=== PATIENT | female | born 1945 | race Caucasian/White ===

== ENCOUNTER → 2016-08-22 | Day surgery (SDC) | payer OTHER, MEDICARE ==
[2016-08-14 15:00] VITALS: BMI 37.0
[~2016-08-22] VITALS: Ht 160 cm; Wt 95.5 kg
[~2016-08-22] MED LIST: ACET500T57 PO; ALBU18002 INH; ALBUTEROL 0.083% NEBU SOLN 3 ML VIAL INH SCH; ALPR-411 PO; AMOX1TAB43 PO; AMOX875T PO; ASPCH81X PO; ASPI81TA25 PO; CHOL100010 PO; CLMTP5 TD; ESTR0.02 TD; ESTRADIOL EXT; FAMO20TA11 PO; FLUO10CA48 PO; FLUT1INH7 INH; FLUT220A INH; GLC/500 PO; GLC500 PO; LCTX PO; LEVA45AE INH; LEVO-371 PO; LIDOCAINE HCL 2% 2 ML VIAL (20MG/ML) ONE; LOSA50TA6 PO; MONT1TAB3 PO; MULT-506 PO; OXYC-57 PO; PROPOFOL IV EMULSION 10 MG/ML 20 ML VIAL IV ONE; XPNINS1255 NEB
[2016-08-22 08:45] VITALS: Ht 160 cm; Wt 95.5 kg
[2016-08-22 08:48] VITALS: BP 174/79; TEMP 37.2; O2SAT 93
[2016-08-22 09:08] VITALS: PULSE 75; O2SAT 93
--- NOTE | 2016-08-22 12:09 | Anesthesiology Progress Note ---
Anesthesia Progress Note Date of Service Aug 22, 2016. Progress Notes The patient is a 71 y/o female with a h/o COPD, MASSIMO on CPAP ( wears 3L NC 02 at night), HTN, GERD, DM and obesity who was schedule to have an EGD with Dr. Rossi for chronic GERD and abdominal pain. The patient was noted to be wheezing and had an oxygen saturation of 92% on RA on admission. The patient stated her baseline room air saturation is 94-95% on RA. She was visibly short of breath while walking. She stated that after changing her cat' s litter this morning she felt more tight in the chest and did use her Albuterol this morning. On exam she was wheezing throughout her lung pagan. She also appeared to have some upper airway congestion. She initially denied feeling congested, but then admitted that she did feel more congested this morning than usual. She was given an albuterol nebulizer as she does not tolerated Duonebs. She continued to have significant wheezing throughout after the nebulizer and her oxygen saturation remained between 92-93% on RA. The patient's wheezing has been worse recently and she saw her the SURVEY CHIEF at her pulmonologists office, Leona Castelan last week. I discussed the patient with Dr. Rossi who agreed that the patient's procedure should be cancelled until her respiratory status was improved as the procedure was not urgent or emergent. I recommended the patient go to the ED for further evaluation and treatment, but she refused. I called Leona Castelan and spoke to her. She stated that she has been trying to adjust the patient's nebulizer to optimizer her. I described the patient's exam findings and told her the patient's oxygen saturation and that she has been short of breath. Leona also recommended that the patient go to the ED as she had no opening to see her in the office today. She stated that if the patient refuses to go to the ED she should call her office as soon as possible for an appointment and possible further recommendations. I informed the patient that Leona, Dr. Rossi and myself all recommend she go to the ED for further evaluation and treatment, but she refused stated that this happens to her frequently and she did not feel it was necessary. I informed her of the risks of refusing to go to the ED and getting evaluation and treatment including the risk of respiratory failure, cardiac arrest, stroke and . The patient stated that she understood and she signed out against medical advice (AMA). I again reminded her that she needs to call Leona as soon as possible to see if she will have any new recommendations for her and to schedule an appointment with pulmonology. She stated that she would do that. I again encouraged her to go to the ED if she felt short of breath, chest pain, lightheaded or dizziness or with any other concerns.
== END | disposition home or self-care (01) ==
LOC: C.GI 08:15
PROVIDERS: ATTEND Internal Medicine Gastroenterology
DX: K21.9 Gastro-esophageal reflux disease without esophagitis (principal); R13.10 Dysphagia, unspecified; J44.9 Chronic obstructive pulmonary disease, unspecified; G47.33 Obstructive sleep apnea (adult) (pediatric); I10 Essential (primary) hypertension; E66.9 Obesity, unspecified; E11.9 Type 2 diabetes mellitus without complications; Z99.89 Dependence on other enabling machines and devices

== ENCOUNTER → 2016-09-26 | Outpatient (CLI) | payer OTHER, MEDICARE ==
[~2016-09-26] MED LIST changes: -ALBUTEROL 0.083% NEBU SOLN 3 ML VIAL INH SCH; -LEVO-371 PO; +LEVO5TAB2 PO; -LIDOCAINE HCL 2% 2 ML VIAL (20MG/ML) ONE; -PROPOFOL IV EMULSION 10 MG/ML 20 ML VIAL IV ONE
== END | disposition home or self-care (01) ==
LOC: C.LABSPEC 10:30
PROVIDERS: ATTEND Physician Assistant
DX: N89.8 Other specified noninflammatory disorders of vagina (principal)

== ENCOUNTER 2017-01-23 13:06 | Observation (INO) | payer OTHER, MEDICARE ==
[~2017-01-23] VITALS: Ht 157.5 cm; Wt 98.7 kg
[~2017-01-23 13:06] MED LIST changes: -ACET500T57 PO; -AMOX1TAB43 PO; -AMOX875T PO; -ASPI81TA25 PO; -CLMTP5 TD; -ESTR0.02 TD; -FLUT1INH7 INH; -GLC/500 PO; -LCTX PO; -LEVO5TAB2 PO; -OXYC-57 PO; -XPNINS1255 NEB
[2017-01-23] MEDS ORDERED: OXYMETAZOLINE HCL 0.05% NA SPR 15 ML BTL ONE (13:15)
[2017-01-23] MEDS ORDERED: SILVER NITR/POTASSIUM NITRATE 10 APPLICATOR PACK EXT STA (13:34)
[2017-01-23] MEDS ORDERED: LIDOCAINE HCL 2% JELLY 30 ML TUBE EXT ONE (13:54)
[2017-01-23] MEDS ORDERED: CLMTP5 TD (14:15)
[2017-01-23] MEDS ORDERED: GLC/500 PO (14:15)
[2017-01-23] MEDS ORDERED: ALBUTEROL 0.083% NEBU SOLN 3 ML VIAL INH STA (14:16)
[2017-01-23] MEDS ORDERED: AMOX875T PO (14:40)
[2017-01-23] MEDS ORDERED: AMOXICILLIN/CLAVULANATE TAB 875 MG TAB PO ONE (14:45)
[2017-01-23] MEDS ORDERED: NURSING VERBAL MED ORDER ONE (15:45)
[2017-01-23] MEDS ORDERED: SODIUM CHLORIDE 0.9% 500ML 500 ML IV STA (15:47)
--- NOTE | 2017-01-23 16:42 | EMERGENCY ROOM VISIT NOTE ---
History Report prepared by Marshaibkasia: Alyx Quezada Under the Supervision of: Dr. Marc Loaiza D.O. First contact with patient: 13:11 Chief Complaint: NOSE BLEED (MAJOR) Stated Complaint: NOSE BLEED History of Present Illness The patient is a 71 year old female who presents to the Emergency Room with complaints of persistent epistaxis that started 1 hour ago. The patient states that there is blood coming out of her right nares and it is also dripping down her posterior oropharynx. The patient put Afrin in her nares after it started bleeding without any relief of her symptoms. The patient denies headaches, chest pain, nausea, and vomiting. The patient states that she coughed up some mucous and blood clots this morning after waking up. She states that she was experiencing postnasal drip and was clearing her throat when she coughed up the blood. She states that the blood was dripping down the back of her throat this morning but it seemed to resolve on its own. She adds that she was coughing and sneezing a lot yesterday. The patient states that she has a history of multiple sinus surgeries.She states that she has COPD and experiences shortness of breath at baseline but it has not been any worse recently. Source of History: patient Onset: 1 hour ago Position: nose (right nares) Quality: other (epistaxis) Timing: other (persistent) Associated Symptoms: No headache, No chest pain, No SOB, No abdominal pain Note: blood down posterior oropharynx Review of Systems See HPI for pertinent positives & negatives. A total of 10 systems reviewed and were otherwise negative. Past Medical & Surgical Medical Problems: (1) Diabetes (2) Hyperlipidemia (3) Hypertension Family History Diabetes mellitus GI malignancy Social History Smoking Status: Former Smoker Marital Status: Occupation Status: retired Current/Historical Medications Scheduled Alprazolam (Xanax), 0.5 MG PO HS Amoxicillin & Pot Clavulanate (Augmentin 875-125 mg), 875 MG PO BID Aspirin (Aspirin Chewable), 81 MG PO QAM Cholecalciferol (Vitamin D), 1 TAB PO QAM Estradiol (Estradiol), 0.025 MG TD WK Famotidine (Pepcid), 20 MG PO BID Fluoxetine (Prozac), 10 MG PO QAM Losartan Potassium (Cozaar), 100 MG PO QAM Metformin Hcl (Glucophage), 500 MG PO DAILY Multivitamin (Multivitamin), 1 TAB PO QAM [Estradiol], 0.025 MG EXT WK Scheduled PRN Albuterol Sulfate (Proair Respiclick), 2 PUFF INH QID PRN for Shortness of Breath Levalbuterol Tartrate (Levalbuterol Tartrate Hfa), 1 DOSE INH QID PRN for Shortness of Breath Allergies Coded Allergies: CAMMIE Inhibitors (Verified Allergy, Unknown, COUGH, 08/14/16) Cefaclor (Verified Allergy, Unknown, HIVES, 08/14/16) Erythromycin (Verified Allergy, Unknown, HIVES, 08/14/16) Hyoscyamine (Verified Allergy, Unknown, HALLUCINATIONS, 08/14/16) Saccharin (Verified Allergy, Unknown, WHEEZING, 08/14/16) Sorbitol (Verified Allergy, Unknown, STOMACH PAIN, 08/14/16) Sulfa Drugs (Verified Allergy, Unknown, HIVES, 08/14/16) Sulfites (Verified Allergy, Unknown, WHEEZING, 08/14/16) Etodolac (Verified Adverse Reaction, Unknown, STOMACH PAIN, 08/22/16) Levofloxacin (Verified Adverse Reaction, Unknown, BRAIN FOG AND SPACEY, ) Physical Exam Vital Signs Date Time Temp Pulse Resp B/P (MAP) Pulse Ox O2 Delivery O2 Flow Rate FiO2 01/23/17 14:22 88 20 156/110 98 Room Air 01/23/17 13:13 36.4 106 18 217/147 94 Room Air Physical Exam GENERAL: alert, sitting up in bed, disheveled, dried blood on clothes, well appearing, well nourished, no distress, non-toxic EYE EXAM: normal conjunctiva, PERRL and EOM's intact NOSE: Clamp removed, small scar present just medial to the inferior nasal turbinate on right nasal septum. OROPHARYNX: No blood in posterior oropharynx, no exudate, no erythema, lips, buccal mucosa, and tongue normal and mucous membranes are moist NECK: supple, no nuchal rigidity, no adenopathy, non-tender LUNGS: Wheezing bilateral. Normal chest wall mechanics HEART: no murmurs, S1 normal and S2 normal ABDOMEN: abdomen soft, non-tender, normo-active bowel sounds, no masses, no rebound or guarding. UPPER EXTREMITIES: upper extremities are grossly normal. LOWER EXTREMITIES: No pitting edema. NEURO EXAM: Normal sensorium, cranial nerves II-XII grossly intact, normal speech, no gross weakness of arms, no gross weakness of legs. Medical Decision & Procedures Medications Administered Medications (Trade) Dose Ordered Sig/Nelida Route Start Time Stop Time Status Last Admin Dose Admin Albuterol Sulfate (Ventolin 0.083% 2.5MG/3ML Neb) 2.5 mg NOW STAT INH 01/23/17 14:16 01/23/17 14:17 DC 01/23/17 14:21 2.5 MG Amoxicillin/ Clavulanate Potassium (Augmentin Tab) 875 mg ONE ONCE PO 01/23/17 14:45 01/23/17 14:46 DC 01/23/17 14:57 875 MG Miscellaneous Information (Nursing Verbal Med Order) 1 ea ONE ONCE N/A 01/23/17 15:45 01/23/17 15:46 DC 01/23/17 15:45 1 EA Sodium Chloride 500 ml @ 999 mls/hr Q31M STAT IV 01/23/17 15:47 01/23/17 16:17 DC 01/23/17 15:47 999 MLS/HR Procedure Anterior Nasal Packing Indication: Epistaxis. Verbal consent obtained. Risks and benefits were explained with the usual customary discussion. A time out was taken. Clots were removed with suction. The right naris was prepped with Afrin and lidocaine. A 3.5-cm nasal balloon was placed and was unsuccessful. A 5-cm nasal balloon was then placed in a standard fashion. The patient tolerated this well. Hemostasis was achieved. No complications. ED Course ED COURSE: Vital signs were reviewed and showed hypertension. The patients medical record was reviewed The above diagnostic studies were performed and reviewed. ED treatments and interventions as stated above. 1314: The patient was evaluated in room B11. A complete history and physical examination was performed. 1315: Ordered Oxymetazoline HCl 2 sprays INH 1334: Ordered Silver Nitrate/Potassium Nitrate 1 pkt EXT 1344: The nurse told me that the patient's nose is bleeding again. 1350: I reassessed the patient and packed her nose. Please refer to the procedure note above for further details. 1354: Ordered Lidocaine HCl 30 ml EXT 1416: Ordered Albuterol Sulfate 2.5 mg INH 1430: Upon reevaluation, the patient is doing well and the bleeding has stopped. I discussed my findings with the patient and she understands and agrees with the treatment plan. Based on the patients age, coexisting illnesses, exam and lab findings the decision to treat as an outpatient was made. The patient remained stable while under my care. The patient appeared well at the time of discharge. Just prior to discharge the patient started bleeding again. Patient was repacked twice and ENT present at bedside at 4:10 PM. Patient was signed out to Dr. Prado had 4:35 PM. 1445: Ordered Augmentin Tab 875 mg PO 1506: As the patient was being discharged, her nose started to bleed again. 1518: I reassessed the patient. She is still experiencing a small amount of blood leaking down the back of her throat. 1524: I reviewed the patient's case with Dr. Tovar - ENT. He will evaluate the patient for further management. 1528: I reassessed the patient. The rhino rocket continued to protrude. There was no bleeding posteriorly and a small amount of oozing anteriorly. She is comfortable currently and does not prefer to have the rhino rocket adjusted again. Medical Decision Differential diagnoses includes but is not limited to anterior epistaxis, coagulopathy, traumatic injury, fracture, septal hematoma, posterior epistaxis. Patient is a 71-year-old female who presents the ER for epistaxis. Initially upon presentation she is found be hypertensive with systolic pressures in the 200s. Systolic pressures treated down to 150s without intervention. Upon initial evaluation nasal clamp is in place and she had no bleeding. She had a small scab on her right septum. History would be consistent with a posterior bleed as the bleeding initially bleeding started going down the back of her throat and both sides of the nose but is mainly focused on the right. Just prior to discharge she started bleeding again. She was packed with small Rhino Rocket. Bleeding stopped and the cycle repeated and she was repacked with a larger Rhino Rocket although I was not able to completely advanced this as I met resistance in the posterior nose. Consulted ENT. Pressures remained 160s systolic. IV was established. Patient was given a small amount of fluids. ENT was at bedside. Patient has remained hemodynamically stable. She is given a small dose of hydralazine per ENTs request. They were able to stop the bleeding. Patient will be observed for an hour. Bleeding does not recur she can be discharged. If it does recur ENT will be called and patient will be admitted for observation overnight. Patient was signed out to Dr. Prado for observation times one hour. Medication Reconcilliation Current Medication List: was personally reviewed by me Blood Pressure Screening Patient's blood pressure: Elevated blood pressure Blood pressure disposition: Elevated BP felt to be situational Consults Time Called: 1520 Consulting Physician: Dr. Tovar - ENT Returned Call: 1524 Impression Primary Impression: Epistaxis Additional Impression: Hypertension Scribe Attestation The scribe's documentation has been prepared under my direction and personally reviewed by me in its entirety. I confirm that the note above accurately reflects all work, treatment, procedures, and medical decision making performed by me. Departure Information Dispostion Home / Self-Care Prescriptions Amoxicillin & Pot Clavulanate (Augmentin 875-125 mg) 1 Tab Tab 875 MG PO BID for 4 Days, TAB Prov: Marc Loaiza, 01/23/17 Referrals Andrae Hays MD (PCP) Forms HOME CARE DOCUMENTATION FORM, IMPORTANT VISIT INFORMATION, WORK / SCHOOL INSTRUCTIONS Patient Instructions ED Nasal Packing Anterior Removable, ED Nosebleed, My [facility] marshallindex Additional Instructions Please follow up with your primary care doctor or if you are a student, [facility] with in the next 24 hours. Any worsening of your symptoms, please return to the ED immediately. This includes any fevers greater than 100.4, blood running down the back your throat, bleeding around the packing , or any other concerning signs or symptoms from your standpoint. Please take antibiotic as prescribed. You were found to have a blood pressure greater than 120 systolic over 90 diastolic. Due to the new Medicare guidelines , we are now recommending that you follow up with your primary care doctor in regards to this elevated blood pressure. Please have packing removed by either your primary care doctor or ENT within 2- 3 days. Problem Qualifiers Additional Impression: Hypertension Hypertension type: unspecified Qualified Codes: I10 - Essential (primary) hypertension
[2017-01-23] MEDS ORDERED: HydrALAZINE HCL 20 MG/ML VIAL IV. STA (16:44)
[2017-01-23] MEDS ORDERED: LABETALOL HCL IV 5 MG/ML 20ML IV ONE (16:45)
--- NOTE | 2017-01-23 17:10 | EMERGENCY ROOM VISIT NOTE ---
ED Visit Note First contact with patient: 16:49 Received patient in signout from Dr. Loaiza. History and physical verified by me. Patient was evaluated by Dr. Freire in the emergency department. We are going to observe the patient until 1740 at which time if the patient is no longer bleeding she can be sent home. Patient was in agreement with the treatment plan. Upon checking on the patient at 1720 she began bleeding again. Dr. Tovar came back down to evaluate the patient and asked that she be admitted to the hospitalist service. I did discuss the case with the hospitalist service who agreed to admit the patient. Problem List Medical Problems: (1) Anxiety Status: Chronic (2) Asthma, allergic Status: Chronic (3) Carotid stenosis Status: Chronic (4) Chronic rhinitis Status: Chronic (5) Chronic sinusitis Status: Chronic (6) COPD, moderate Status: Chronic (7) Depression Status: Chronic (8) DM type 2 (diabetes mellitus, type 2) Status: Chronic (9) GERD (gastroesophageal reflux disease) Status: Chronic (10) Hyperlipidemia Status: Chronic (11) Hypertension Status: Chronic (12) IBS (irritable bowel syndrome) Status: Chronic (13) MGUS (monoclonal gammopathy of unknown significance) Status: Chronic (14) Nocturnal hypoxia Status: Chronic (15) Obstructive sleep apnea on CPAP Status: Chronic (16) Osteoarthritis Status: Chronic Surgical Problems: (1) H/O sinus surgery Permanent Comment: x2 Status: Chronic (2) History of cataract surgery Status: Chronic (3) History of hysterectomy Status: Chronic (4) S/P carotid endarterectomy Permanent Comment: left, 09/2015 Status: Chronic (5) S/P section Status: Chronic (6) S/P cholecystectomy Status: Chronic (7) S/P tonsillectomy and adenoidectomy Status: Chronic (8) S/P total knee arthroplasty Permanent Comment: left Status: Chronic Current/Historical Medications Scheduled Aspirin (Aspir-Low), 1 TAB PO DAILY Cholecalciferol (Vitamin D), 1 TAB PO QAM Estradiol (Estradiol Transdermal System), 1 PATCH TD WK Famotidine (Pepcid), 20 MG PO BID Fluoxetine (Prozac), 10 MG PO QAM Fluticasone Furoate-Vilanterol (Breo Ellipta 200-25 Mcg/INH), 1 PUFF INH DAILY Levocetirizine Dihydrochloride (Xyzal), 1 TAB PO DAILY Losartan Potassium (Cozaar), 100 MG PO QAM Metformin Hcl (Glucophage), 500 MG PO DAILY Multivitamin (Multivitamin), 1 TAB PO QAM Scheduled PRN Acetaminophen (Acetaminophen), 1,000 MG PO Q6 PRN for Pain or Fever Albuterol Sulfate (Proair Respiclick), 2 PUFF INH QID PRN for Shortness of Breath Alprazolam (Xanax), 0.5 MG PO HS PRN for sleep or anxiety Levalbuterol (Levalbuterol), 2 ML NEB Q4H PRN for SOB/Wheezing Allergies Coded Allergies: CAMMIE Inhibitors (Verified Allergy, Unknown, COUGH, 08/14/16) Cefaclor (Verified Allergy, Unknown, HIVES, 08/14/16) Erythromycin (Verified Allergy, Unknown, HIVES, 08/14/16) Hyoscyamine (Verified Allergy, Unknown, HALLUCINATIONS, 08/14/16) Saccharin (Verified Allergy, Unknown, WHEEZING, 08/14/16) Sorbitol (Verified Allergy, Unknown, STOMACH PAIN, 08/14/16) Sulfa Drugs (Verified Allergy, Unknown, HIVES, 08/14/16) Sulfites (Verified Allergy, Unknown, WHEEZING, 08/14/16) Etodolac (Verified Adverse Reaction, Unknown, STOMACH PAIN, 08/22/16) Levofloxacin (Verified Adverse Reaction, Unknown, BRAIN FOG AND SPACEY, ) Vital Signs Date Time Temp Pulse Resp B/P (MAP) Pulse Ox O2 Delivery O2 Flow Rate FiO2 01/23/17 18:49 85 18 181/132 94 Room Air 01/23/17 17:14 89 18 165/102 93 Room Air 01/23/17 16:53 81 20 186/109 94 Room Air 01/23/17 14:22 88 20 156/110 98 Room Air 01/23/17 13:13 36.4 106 18 217/147 94 Room Air Laboratory Results 01/23/17 17:45 Red Blood Count 4.93, Mean Corpuscular Volume 87.8, Mean Corpuscular Hemoglobin 27.6, Mean Corpuscular Hemoglobin Concent 31.4, Mean Platelet Volume 9.3, Neutrophils (%) (Auto) 79.4, Lymphocytes (%) (Auto) 13.8, Monocytes (%) (Auto) 5.0, Eosinophils (%) (Auto) 1.1, Basophils (%) (Auto) 0.3, Neutrophils # (Auto) 11.33, Lymphocytes # (Auto) 1.97, Monocytes # (Auto) 0.71, Eosinophils # (Auto) 0.16, Basophils # (Auto) 0.04 01/23/17 17:45 Test 01/23/17 17:45 White Blood Count 14.26 K/uL (4.8-10.8) Red Blood Count 4.93 M/uL (4.2-5.4) Hemoglobin 13.6 g/dL (12.0-16.0) Hematocrit 43.3 % (37-47) Mean Corpuscular Volume 87.8 fL (80-100) Mean Corpuscular Hemoglobin 27.6 pg (25-34) Mean Corpuscular Hemoglobin Concent 31.4 g/dl (32-36) Platelet Count 377 K/uL (130-400) Mean Platelet Volume 9.3 fL (7.4-10.4) Neutrophils (%) (Auto) 79.4 % Lymphocytes (%) (Auto) 13.8 % Monocytes (%) (Auto) 5.0 % Eosinophils (%) (Auto) 1.1 % Basophils (%) (Auto) 0.3 % Neutrophils # (Auto) 11.33 K/uL (1.4-6.5) Lymphocytes # (Auto) 1.97 K/uL (1.2-3.4) Monocytes # (Auto) 0.71 K/uL (0.11-0.59) Eosinophils # (Auto) 0.16 K/uL (0-0.5) Basophils # (Auto) 0.04 K/uL (0-0.2) RDW Standard Deviation 41.5 fL (36.4-46.3) RDW Coefficient of Variation 12.9 % (11.5-14.5) Immature Granulocyte % (Auto) 0.4 % Immature Granulocyte # (Auto) 0.05 K/uL (0.00-0.02) Prothrombin Time 10.6 SECONDS (9.0-12.0) Prothromb Time International Ratio 1.0 (0.9-1.1) Activated Partial Thromboplast Time 20.1 SECONDS (21.0-31.0) Partial Thromboplastin Ratio 0.8 Anion Gap 10.0 mmol/L (3-11) Est Creatinine Clear Calc Drug Dose 83.1 ml/min Estimated GFR () 101.3 Estimated GFR (Non- 87.4 BUN/Creatinine Ratio 22.8 (10-20) Calcium Level 9.4 mg/dl (8.5-10.1) Total Bilirubin 0.6 mg/dl (0.2-1) Direct Bilirubin 0.1 mg/dl (0-0.2) Aspartate Amino Transf (AST/SGOT) 13 U/L (15-37) Alanine Aminotransferase (ALT/SGPT) 24 U/L (12-78) Alkaline Phosphatase 125 U/L (45-117) Troponin I < 0.015 ng/ml (0-0.045) Total Protein 8.0 gm/dl (6.4-8.2) Albumin 4.0 gm/dl (3.4-5.0) Lipase 142 U/L (73-393) Medications Administered Medications (Trade) Dose Ordered Sig/Nelida Route Start Time Stop Time Status Last Admin Dose Admin Albuterol Sulfate (Ventolin 0.083% 2.5MG/3ML Neb) 2.5 mg NOW STAT INH 01/23/17 14:16 01/23/17 14:17 DC 01/23/17 14:21 2.5 MG Amoxicillin/ Clavulanate Potassium (Augmentin Tab) 875 mg ONE ONCE PO 01/23/17 14:45 01/23/17 14:46 DC 01/23/17 14:57 875 MG Miscellaneous Information (Nursing Verbal Med Order) 1 ea ONE ONCE N/A 01/23/17 15:45 01/23/17 15:46 DC 01/23/17 15:45 1 EA Sodium Chloride 500 ml @ 999 mls/hr Q31M STAT IV 01/23/17 15:47 01/23/17 16:17 DC 01/23/17 15:47 999 MLS/HR Hydralazine HCl (HydrALAZINE INJ) 10 mg NOW STAT IV. 01/23/17 16:44 01/23/17 16:45 DC 01/23/17 16:55 10 MG Departure Information Impression Primary Impression: Epistaxis Additional Impression: Hypertension Dispostion Home / Self-Care Condition GOOD Referrals Andrae Hays MD (PCP) Forms WORK / SCHOOL INSTRUCTIONS, HOME CARE DOCUMENTATION FORM, IMPORTANT VISIT INFORMATION Patient Instructions My [facility], ED Nosebleed, ED Nasal Packing Anterior Removable Additional Instructions Please follow up with your primary care doctor or if you are a student, [facility] with in the next 24 hours. Any worsening of your symptoms, please return to the ED immediately. This includes any fevers greater than 100.4, blood running down the back your throat, bleeding around the packing , or any other concerning signs or symptoms from your standpoint. Please take antibiotic as prescribed. You were found to have a blood pressure greater than 120 systolic over 90 diastolic. Due to the new Medicare guidelines , we are now recommending that you follow up with your primary care doctor in regards to this elevated blood pressure. Please call Dr. Tovar at [phone] from ENT to schedule appointment for next week. Problem Qualifiers Additional Impression: Hypertension Hypertension type: unspecified Qualified Codes: I10 - Essential (primary) hypertension
[2017-01-23 17:51] LABS: BASO % 0.3 %; BASO ABS # 0.04 K/uL (0-0.2); COMPLETE YES; EOS % 1.1 %; HEMATOCRIT 43.3 % (37-47); IG% 0.4 %; LYMPH % 13.8 %; LYMPH ABS # 1.97 K/uL (1.2-3.4); MEAN CELL VOLUME 87.8 fL (80-100); MEAN CORPUSCULAR HEMOGLOBIN 27.6 pg (25-34); MEAN CORPUSCULAR HGB CONC 31.4 g/dl (32-36); MEAN PLATELET VOLUME 9.3 fL (7.4-10.4); NEUT % 79.4 %; PLATELET COUNT 377 K/uL (130-400); RED BLOOD COUNT 4.93 M/uL (4.2-5.4); WHITE BLOOD COUNT 14.26 K/uL (4.8-10.8)
[2017-01-23 18:04] LABS: PARTIAL THROMBOPLASTIN RATIO 0.8; PROTHROMBIN TIME (PATIENT) 10.6 SECONDS (9.0-12.0)
[2017-01-23 18:15] LABS: ALT/SGPT 24 U/L (12-78); BLOOD UREA NITROGEN 16 mg/dl (7-18); BUN/CREATININE RATIO 22.8 (10-20); CALCIUM 9.4 mg/dl (8.5-10.1); CARBON DIOXIDE 24 mmol/L (21-32); CHLORIDE 107 mmol/L (98-107); CREATININE 0.68 mg/dl (0.60-1.20); GLUCOSE 108 mg/dl (70-99); SODIUM 141 mmol/L (136-145)
[2017-01-23 18:18] LABS: ALKALINE PHOSPHATASE 125 U/L (45-117); AST/SGOT 13 U/L (15-37)
[2017-01-23] MEDS ORDERED: XPNINS1255 NEB (19:47)
[2017-01-23] MEDS ORDERED: FLUT1INH7 INH (19:47)
[2017-01-23] MEDS ORDERED: ASPI81TA25 PO (19:47)
[2017-01-23] MEDS ORDERED: ACET500T57 PO (19:47)
[2017-01-23] MEDS ORDERED: ESTR0.02 TD (19:52)
[2017-01-23] MEDS ORDERED: DEXTROSE 50% 50 ML SYR IV PRN (20:00)
[2017-01-23] MEDS ORDERED: GLUCOSE 40% GEL 15 GM TUBE PO PRN (20:00)
[2017-01-23] MEDS ORDERED: ALBUTEROL HFA 8 GM INHALER INH PRN (20:00)
[2017-01-23] MEDS: ALBUT/IPRATROP 3MG/0.5MG NEB 3 ML VIAL INH SCH ×2 (20:00→20:10)
[2017-01-23] MEDS ORDERED: GLUCAGON FOR INJ 1 MG VIAL SQ PRN (20:00)
[2017-01-23] MEDS ORDERED: ESTRADIOL TD SCH (20:00)
[2017-01-23] MEDS ORDERED: ALPRAZOLAM 0.5 MG TAB PO PRN (20:00)
[2017-01-23] MEDS ORDERED: GLUCOSE 10 TABS/TUBE PO PRN (20:00)
[2017-01-23 20:10] VITALS: PULSE 84; O2SAT 90
[2017-01-23] MEDS ORDERED: LEVO-371 PO (20:26)
[2017-01-23 20:44] VITALS: BP 170/114; PULSE 86; TEMP 36.7; O2SAT 93; Ht 157.5 cm; Wt 98.7 kg
[2017-01-23] MEDS: INSULIN ASPART 100 UNITS/ML 3 ML PEN SC SCH (20:49)
--- NOTE | 2017-01-23 20:49 | History and Physical ---
History & Physical Date & Time of Service: Jan 23, 2017 at 20:04 Chief Complaint: Nose Bleed Primary Care Physician: Andrae Hays MD History of Present Illness Source: patient, clinic records This is a 71 y/o female with PMH of hypertension, carotid stenosis s/p L carotid endarterectomy in 09/2015, asthma, COPD, nocturnal hypoxemia, MASSIMO on CPAP , DM 2, and other problems listed below who presented to the ED with epistaxis. Patient reports 1 week hx of increased coughing with thicker darker yellow sputum from baseline. She had increased wheezing/ SOB for a few days and was using her neb treatment QID. She attributes this to worsening asthma triggered by hot/humid weather. Also has environmental allergies. She was sneezing/ coughing a lot yesterday, then today around 9 am coughed up postnasal drip and noticed bright red blood. Then developed gushing of blood from the right nostril. She was unable to stop the bleeding at home so called 911 and was brought to ER. In the ER her nose was packed multiple times but she continued to have recurrent bleeding. She was seen by ENT Dr. Tovar and the bleeding was stopped. Patient's BP was elevated to 210s/140s on arrival. She was treated with hydralazine 10 mg IV. Latest BP was 180s/100s. In clinic her BP's run 120s- 150s systolic. Pt is compliant with Losartan 100 mg daily. She admits to feeling anxious in the ER and she is in significant pain from the packing. Earlier today had central chest tightness attributed to anxiety. Not feeling CP or SOB currently. A neb treatment was given in the ER. Had 1 loose BM after Augmentin given in ER. She denies fever, chills, BANGURA, abdominal pain, vomiting, dysuria, edema, calf pain. Takes baby ASA for hx carotid endarterectomy. No hx CAD or stroke. Not on blood thinner or NSAIDs. Past Medical/Surgical History Medical Problems: (1) Anxiety Status: Chronic (2) Asthma, allergic Status: Chronic (3) Carotid stenosis Status: Chronic (4) Chronic rhinitis Status: Chronic (5) Chronic sinusitis Status: Chronic (6) COPD, moderate Status: Chronic (7) Depression Status: Chronic (8) DM type 2 (diabetes mellitus, type 2) Status: Chronic (9) GERD (gastroesophageal reflux disease) Status: Chronic (10) Hyperlipidemia Status: Chronic (11) Hypertension Status: Chronic (12) IBS (irritable bowel syndrome) Status: Chronic (13) MGUS (monoclonal gammopathy of unknown significance) Status: Chronic (14) Nocturnal hypoxia Status: Chronic (15) Obstructive sleep apnea on CPAP Status: Chronic (16) Osteoarthritis Status: Chronic Surgical Problems: (1) H/O sinus surgery Permanent Comment: x2 Status: Chronic (2) History of cataract surgery Status: Chronic (3) History of hysterectomy Status: Chronic (4) S/P carotid endarterectomy Permanent Comment: left, 09/2015 Status: Chronic (5) S/P section Status: Chronic (6) S/P cholecystectomy Status: Chronic (7) S/P tonsillectomy and adenoidectomy Status: Chronic (8) S/P total knee arthroplasty Permanent Comment: left Status: Chronic Family History Diabetes mellitus GI malignancy Social History Smoking Status: Former Smoker Alcohol Use: none Drug Use: none Marital Status: Housing status: lives alone Occupational Status: retired Immunizations History of Influenza Vaccine: Yes History of Tetanus Vaccine?: Yes History of Pneumococcal: Yes History of Hepatitis B Vaccine: Yes Multi-Drug Resistant Organisms History of MDRO: No Allergies Coded Allergies: CAMMIE Inhibitors (Verified Allergy, Unknown, COUGH, 08/14/16) Cefaclor (Verified Allergy, Unknown, HIVES, 08/14/16) Erythromycin (Verified Allergy, Unknown, HIVES, 08/14/16) Hyoscyamine (Verified Allergy, Unknown, HALLUCINATIONS, 08/14/16) Saccharin (Verified Allergy, Unknown, WHEEZING, 08/14/16) Sorbitol (Verified Allergy, Unknown, STOMACH PAIN, 08/14/16) Sulfa Drugs (Verified Allergy, Unknown, HIVES, 08/14/16) Sulfites (Verified Allergy, Unknown, WHEEZING, 08/14/16) Etodolac (Verified Adverse Reaction, Unknown, STOMACH PAIN, 08/22/16) Levofloxacin (Verified Adverse Reaction, Unknown, BRAIN FOG AND SPACEY, ) Home Medications Scheduled Aspirin (Aspir-Low), 1 TAB PO DAILY Cholecalciferol (Vitamin D), 1 TAB PO QAM Estradiol (Estradiol Transdermal System), 1 PATCH TD WK Famotidine (Pepcid), 20 MG PO BID Fluoxetine (Prozac), 10 MG PO QAM Fluticasone Furoate-Vilanterol (Breo Ellipta 200-25 Mcg/INH), 1 PUFF INH DAILY Levocetirizine Dihydrochloride (Xyzal), 1 TAB PO DAILY Losartan Potassium (Cozaar), 100 MG PO QAM Metformin Hcl (Glucophage), 500 MG PO DAILY Multivitamin (Multivitamin), 1 TAB PO QAM Scheduled PRN Acetaminophen (Acetaminophen), 1,000 MG PO Q6 PRN for Pain or Fever Albuterol Sulfate (Proair Respiclick), 2 PUFF INH QID PRN for Shortness of Breath Alprazolam (Xanax), 0.5 MG PO HS PRN for sleep or anxiety Levalbuterol (Levalbuterol), 2 ML NEB Q4H PRN for SOB/Wheezing Review of Systems Ten systems reviewed and negative except as noted in HPI. Physical Exam Vital Signs Date Time Temp Pulse Resp B/P (MAP) Pulse Ox O2 Delivery O2 Flow Rate FiO2 01/23/17 18:49 85 18 181/132 94 Room Air 01/23/17 17:14 89 18 165/102 93 Room Air 01/23/17 16:53 81 20 186/109 94 Room Air 01/23/17 14:22 88 20 156/110 98 Room Air 01/23/17 13:13 36.4 106 18 217/147 94 Room Air General Appearance: + obese, + pertinent finding (alert cooperative 71 y/o female, mild distress due to pain) Head: normocephalic, atraumatic Eyes: normal inspection, PERRL, sclerae normal ENT: hearing grossly normal, pharynx normal (no blood in posterior pharynx), + pertinent finding (nasal packing in place. mild bilateral maxillary sinus tenderness) Neck: supple Respiratory/Chest: no respiratory distress, no accessory muscle use, + wheezing (moderate wheezing throughout) Cardiovascular: regular rate, rhythm, no murmur Abdomen/GI: normal bowel sounds, non tender, soft Extremities/Musculoskelatal: no calf tenderness, + pertinent finding (trace pedal edema on the left- chronic per patient. RLE- no edema. DP pulses 2+) Neurologic/Psych: alert, normal mood/affect, oriented x 3 Skin: normal color, warm/dry Diagnostics Laboratory Results Results Past 24 Hours Test 01/23/17 17:45 Range/Units White Blood Count 14.26 4.8-10.8 K/uL Red Blood Count 4.93 4.2-5.4 M/uL Hemoglobin 13.6 12.0-16.0 g/dL Hematocrit 43.3 37-47 % Mean Corpuscular Volume 87.8 80-100 fL Mean Corpuscular Hemoglobin 27.6 25-34 pg Mean Corpuscular Hemoglobin Concent 31.4 32-36 g/dl Platelet Count 377 130-400 K/uL Mean Platelet Volume 9.3 7.4-10.4 fL Neutrophils (%) (Auto) 79.4 % Lymphocytes (%) (Auto) 13.8 % Monocytes (%) (Auto) 5.0 % Eosinophils (%) (Auto) 1.1 % Basophils (%) (Auto) 0.3 % Neutrophils # (Auto) 11.33 1.4-6.5 K/uL Lymphocytes # (Auto) 1.97 1.2-3.4 K/uL Monocytes # (Auto) 0.71 0.11-0.59 K/uL Eosinophils # (Auto) 0.16 0-0.5 K/uL Basophils # (Auto) 0.04 0-0.2 K/uL RDW Standard Deviation 41.5 36.4-46.3 fL RDW Coefficient of Variation 12.9 11.5-14.5 % Immature Granulocyte % (Auto) 0.4 % Immature Granulocyte # (Auto) 0.05 0.00-0.02 K/uL Prothrombin Time 10.6 9.0-12.0 SECONDS Prothromb Time International Ratio 1.0 0.9-1.1 Activated Partial Thromboplast Time 20.1 21.0-31.0 SECONDS Partial Thromboplastin Ratio 0.8 Sodium Level 141 136-145 mmol/L Potassium Level 4.0 3.5-5.1 mmol/L Chloride Level 107 98-107 mmol/L Carbon Dioxide Level 24 21-32 mmol/L Anion Gap 10.0 3-11 mmol/L Blood Urea Nitrogen 16 7-18 mg/dl Creatinine 0.68 0.60-1.20 mg/dl Est Creatinine Clear Calc Drug Dose 83.1 ml/min Estimated GFR () 101.3 Estimated GFR (Non- 87.4 BUN/Creatinine Ratio 22.8 10-20 Random Glucose 108 70-99 mg/dl Calcium Level 9.4 8.5-10.1 mg/dl Total Bilirubin 0.6 0.2-1 mg/dl Direct Bilirubin 0.1 0-0.2 mg/dl Aspartate Amino Transf (AST/SGOT) 13 15-37 U/L Alanine Aminotransferase (ALT/SGPT) 24 12-78 U/L Alkaline Phosphatase 125 45-117 U/L Total Protein 8.0 6.4-8.2 gm/dl Albumin 4.0 3.4-5.0 gm/dl Lipase 142 73-393 U/L Impression Assessment and Plan EPISTAXIS Packed multiple times in ER; ultimately seen by ENT Dr. Tovar and hemostasis achieved Hemoglobin is stable BP elevated which is a contributing factor- will attempt improved BP control Continue Augmentin given in ER IV Dilaudid for pain control Hold aspirin Recheck CBC in am Consult ENT HYPERTENSIVE URGENCY Presented with BP 210's/140's, received IV hydralazine, latest BP 189/106 Had chest discomfort earlier- will check EKG and troponin Usually controlled on Losartan 100 mg daily Anxiety/ pain likely contributing PRN IV hydralazine added Continue Losartan Monitor in telemetry ASTHMA/ COPD EXACERBATION Check CXR Continue Augmentin Prednisone 40 mg PO daily x 5 days Nebs QIDR and PRN Continue Breo Ellipta MASSIMO ON CPAP NOCTURNAL HYPOXEMIA CPAP not possible due to nasal packing Spoke with respiratory- oxymask recommended DM TYPE 2 Hold metformin Novolog sliding scale coverage DYSLIPIDEMIA Non-compliant with statin- concerned she will have MSK reaction; had prior rxn' s to 2 statin CAROTID STENOSIS S/p L carotid endarterectomy in 09/2015 Hold ASA for epistaxis Noncompliant with statin DEPRESSION/ ANXIETY Continue Prozac and PRN Xanax DVT PROPHYLAXIS SCD's due to epistaxis FULL CODE per my discussion with the patient DISPOSITION Observation telemetry Follows w/ Dr. Hays for primary care Patient seen in collaboration with Dr. Mcginnis. Please see his addendum. VTE Prophylaxis VTE Risk Assessment Done? Y/N: Yes Risk Level: Moderate Note ATTENDING ADDENDUM Record reviewed. Patient interviewed and examined in ED. Care coordinated with Radha Alegre PA-C. Please refer to her documentation for patient's history. Briefly, 71-year-old female with history of carotid artery disease on aspirin therapy, hypertension, asthma, diabetes, and other problems as noted. Presented to the ED with severe epistaxis. ENT was consulted and hemostasis was achieved. Hospitalization for observation was recommended. EXAM: General- no distress VS- as noted HEENT- nasal packing Lungs- moderate wheezing Heart- regular Abdomen- normal bowel sounds, soft, nontender Extremities- no pretibial edema or calf tenderness Neuro- alert, oriented DATA: Lab studies as noted. ASSESSMENT AND PLAN: Severe epistaxis. Seen by ENT; hemostasis achieved. Hold aspirin. BPs elevated. Continue usual meds + PRN hydralazine as needed to keep systolic BP < 140. Bronchospasm probably secondary to bronchitis; no definite infiltrates on chest x-ray. Amoxicillin/clavulanic acid, steroids, bronchodilators ordered. Uses CPAP for MASSIMO / nocturnal hypoxia. Will use simple face mask for nighttime supplemental oxygenation until OK with ENT to resume CPAP. Please refer to SUNG Alegre's documentation for discussion of other issues. Nehemias Mcginnis MD .
[2017-01-23] MEDS ORDERED: IV FLUIDS COMPLETED PRN (21:00)
[2017-01-23] MEDS: HydrALAZINE HCL 20 MG/ML VIAL IV. PRN (21:13)
[2017-01-23] MEDS: HYDROmorphone INJ 0.5 MG/0.5 ML SYR IV PRN (21:13)
[2017-01-23] MEDS: FAMOTIDINE 20 MG TAB PO SCH (21:15)
[2017-01-23] MEDS: ONDANSETRON INJ 2 MG/ML 2 ML VIAL IV PRN (21:41)
[2017-01-23 22:21] VITALS: BP 120/79; PULSE 90; TEMP 36.6; O2SAT 98
--- NOTE | 2017-01-23 22:38 | DIAGNOSTIC IMAGING REPORT ---
CHEST 2 VIEWS ROUTINE HISTORY: 71 years-old Female wheezing COMPARISON: 11/20/2012 TECHNIQUE: PA and lateral views of the chest FINDINGS: There is slightly progressive basal left lower lobe subsegmental alveolar opacity, best seen on the lateral projection which does appear to be somewhat linear in morphology. No pneumothorax or large pleural effusion. There is chronic blunting of the costophrenic angles. Cardiac silhouette is again mildly enlarged. There is atherosclerosis of the aorta. The bones appear intact. Multilevel endplate spurring is seen throughout the spine. IMPRESSION: Slightly progressive linear basal left lower lobe subsegmental opacity suggests atelectasis, however pneumonia may have a similar appearance. The above report was generated using voice recognition software. It may contain grammatical, syntax or spelling errors. Electronically signed by: Osmany Roldan M.D. 01/23/2017 10:36 PM Dictated Date/Time: 01/23/2017 10:34 PM
[2017-01-23 23:41] VITALS: BP 155/79; PULSE 88; TEMP 36.8; O2SAT 95
[2017-01-23 23:59] VITALS: O2SAT 95
[2017-01-24] VITALS (12 sets, daily range): BP systolic 104–149; BP diastolic 60–88; PULSE 82–93; TEMP 35.9–37.1; O2SAT 89–95
[2017-01-24] MEDS: ONDANSETRON INJ 2 MG/ML 2 ML VIAL IV PRN ×2 (01:37→20:22)
[2017-01-24] MEDS: HYDROmorphone INJ 0.5 MG/0.5 ML SYR IV PRN ×4 (01:37→20:22)
[2017-01-24] MEDS: HydrALAZINE HCL 20 MG/ML VIAL IV. PRN (04:39)
[2017-01-24 04:56] LABS: URINE APPEARANCE CLEAR (CLEAR); URINE BILIRUBIN NEG (NEG); URINE COLOR YELLOW; URINE NITRITE NEG (NEG); URINE SPECIFIC GRAVITY 1.022 (1.000-1.030); UROBILINOGEN NEG (NEG)
[2017-01-24 05:11] LABS: MANUAL MICROSCOPIC REQUIRED? NO; REVIEW REQ? NO
[2017-01-24] MEDS: ALBUT/IPRATROP 3MG/0.5MG NEB 3 ML VIAL INH SCH ×4 (06:26→19:19)
[2017-01-24 06:44] LABS: HEMATOCRIT 41.7 % (37-47); MEAN CELL VOLUME 88.5 fL (80-100); MEAN CORPUSCULAR HEMOGLOBIN 28.9 pg (25-34); MEAN CORPUSCULAR HGB CONC 32.6 g/dl (32-36); MEAN PLATELET VOLUME 9.5 fL (7.4-10.4); PLATELET COUNT 367 K/uL (130-400); RED BLOOD COUNT 4.71 M/uL (4.2-5.4); WHITE BLOOD COUNT 12.86 K/uL (4.8-10.8)
[2017-01-24] MEDS: INSULIN ASPART 100 UNITS/ML 3 ML PEN SC SCH ×4 (07:00→21:00)
--- NOTE | 2017-01-24 07:08 | ENT CONSULTATION ---
DATE OF CONSULTATION: 01/23/2017 I have been asked by Dr. Marc Loaiza to evaluate this patient with right anterior and posterior epistaxis. HISTORY OF PRESENT ILLNESS: The patient is a 71-year-old female who presented to the [facility] Emergency Room earlier today after experiencing primarily right posterior epistaxis which became anterior. She tried to use Afrin and direct pressure, but this continued to progress. It started at approximately 12:00 p.m. today. She has a history of several sinus surgeries by Dr. Vidal as well as Dr. Vega in the past. She denies any history of epistaxis in the past. She has multiple medical problems as outlined below. She has a history of hypertension, and while here in the Emergency Room, her blood pressure has ranged from the systolics in the 160s to 210s over diastolics in the 100s to 120s. ALLERGIES: CAMMIE INHIBITORS, CEPHALOSPORINS, ERYTHROMYCIN, ETODOLAC, HYOSCYAMINE, LEVAQUIN, SACCHARIN, SORBITOL, SULFA DRUGS, SULFITES. MEDICATIONS: Albuterol p.r.n., Xanax at bedtime, baby aspirin, vitamin D, estradiol, Pepcid, Prozac, levalbuterol p.r.n., losartan, metformin, multivitamin, estradiol. PAST MEDICAL HISTORY: COPD/asthma, anxiety, vitamin D deficiency, gastroesophageal reflux disease, anxiety, hypertension, [id number] diabetes mellitus, dyslipidemia. PAST SURGICAL HISTORY: 1. Status post cholecystectomy. 2. Status post C-sections. 3. Status post at least 2 sinus surgeries in the past as described above. 4. Status post left carotid endarterectomy. FAMILY HISTORY: Noncontributory. No bleeding disorders or malignant hyperthermia. SOCIAL HISTORY: The patient is a former smoker. She is retired. She is . REVIEW OF SYSTEMS: The patient is having epistaxis despite having a 7.5 cm Rapid Rhino in the right nasal cavity. She is having bloody postnasal drip. The patient denies any lightheadedness, shortness of breath or chest pain. She denies any sinus pain or pressure other than from the pack. PHYSICAL EXAMINATION: This is an obese white female in no acute distress, who has a 7.5 cm Rapid Rhino partly coming out of her right nasal cavity. There is some oozing around the pack. She is having bloody postnasal drip. External auditory canals and tympanic membranes are clear bilaterally. There are no mucosal lesions or masses within her oral cavity or oropharynx. There is a left carotid endarterectomy scar. There is no neck lymphadenopathy, masses or nodularity. Cranial nerves II-XII are grossly intact. The patient is awake, alert and oriented x3. The patient's pack was removed due to the oozing around the pack. She was noted to have severe epistaxis which was suctioned out, and then Afrin and lidocaine was sprayed to the right nasal cavity and pressure applied. A 0-degree rigid endoscope was then inserted and the patient's bleeding appeared to be coming from the right middle meatus, in between her right middle turbinate and lateral nasal wall. Fibrillar was placed into the right middle meatus, and further Afrin and lidocaine was applied and pressure as well. This resulted in cessation of bleeding. She had no further bloody postnasal drip. She was watched by me in the Emergency Room for at least 20 minutes and there was no evidence of further bleeding. IMPRESSION AND RECOMMENDATIONS: A 71-year-old female with posterior greater than anterior right epistaxis which has responded to endoscopic placement of Fibrillar into the right middle meatus. I have asked the Emergency Room physician to give her something for her hypertension, perhaps hydralazine. She needs to follow up with her primary care physician for better hypertension control. I would like to see her back next week in my office to see if the packing has absorbed versus needs to be further removed. She is placed on Augmentin 875 mg twice daily for 4 days by the Emergency Room and I agree with that management. She is going to be watched in the Emergency Room for 1 more hour and they will call me if she develops any further bleeding. Otherwise, I will sign off on this consult. If you have any questions regarding this patient's care, please do not hesitate to contact me.
--- NOTE | 2017-01-24 07:09 | ENT CONSULTATION ---
DATE OF CONSULTATION: 01/23/2017 ADDENDUM After I left the patient, the patient approximately 30 minutes later developed some further bleeding from her right nasal cavity as well as posterior bloody postnasal drip. I was asked to reevaluate the patient. I came in and suctioned out blood and blood clots as well as removed the fibrillar pack that was in place. The patient had diffuse oozing from the right nasal cavity posteriorly. I was able to properly place a 5.5 cm Rapid Rhino balloon into the right nasal cavity and inflated it with 10 mL of air which resulted in cessation of bleeding. I had the patient gargle out her mouth with water and to remove old blood. I periodically checked her over the next 30-45 minutes and she had no further bleeding. My recommendation is that the Emergency Room contact inpatient hospitalist and have her admitted for better blood pressure control. Despite the hydralazine, her blood pressure while I was in there with her was ranging from 160s to 180s systolic to 100s to 110s diastolic. She is also very anxious and worried about going home given her multiple nosebleeds today. I recommended that she have that pack in for roughly 3-5 days depending on her blood pressure control and response. I will periodically check on her while she is hospitalized. If you have any questions regarding this addendum, please do not hesitate to contact me.
[2017-01-24] MEDS ORDERED: NON-FORMULARY MEDICATION (Fluticasone Furoate-Vilanterol (Breo Ellipta 200-25 Mcg/INH) 1 P INH SCH (09:00)
[2017-01-24] MEDS ORDERED: LEVOCETIRIZINE DIHYDROCHLORIDE PO SCH (09:00)
[2017-01-24] MEDS: AMOXICILLIN/CLAVULANATE TAB 875 MG TAB PO SCH ×2 (09:19→17:24)
[2017-01-24] MEDS: FAMOTIDINE 20 MG TAB PO SCH ×2 (09:19→20:23)
[2017-01-24] MEDS: MULTIVITAMIN TAB PO SCH (09:20)
[2017-01-24] MEDS: FLUOXETINE HCL 10 MG CAP PO SCH (09:20)
[2017-01-24] MEDS: CHOLECALCIFEROL 1000 INTER.UNIT TAB PO SCH (09:20)
[2017-01-24] MEDS: LOSARTAN POTASSIUM 50 MG TAB PO SCH (09:21)
--- NOTE | 2017-01-24 14:11 | Progress Note ---
Internal Med Progress Note Date of Service: Jan 24, 2017. Provider Documentation: SUBJECTIVE: The patient was seen and examined Admitted with Uncontrolled Epistaxis and Very High Blood pressure Has some chest tightness OBJECTIVE: Vital Signs-as noted below Exam: General-no distress Has nose pack in place,no more Epistaxis Eyes-normal ENT-normal Neck-supple Lungs-Clear to auscultate bilaterally Heart-Regular,no masses.bowel sound present Abdomen-Benign,no masses,bowel sound present Extremities-Negative for any edema Neuro-AAOx3 Lab data as noted below. ASSESSMENT & PLAN: EPISTAXIS Packed multiple times in ER; ultimately seen by ENT Dr. Tovar and hemostasis achieved Hemoglobin is stable Continue Augmentin given in ER IV Dilaudid for pain control Hold aspirin Appreciate ENT input Keep Nasal Pack for 5 days HYPERTENSIVE URGENCY Presented with BP 210's/140's, received IV hydralazine, latest BP 189/106 Had chest discomfort earlier- will check EKG and troponin-EKG has Low Voltage and Troponin negative Usually controlled on Losartan 100 mg daily BP is improving Continue Home medication ASTHMA/ COPD EXACERBATION Check CXR-no pneumonia Continue Augmentin Prednisone 40 mg PO daily x 5 days Nebs QIDR and PRN Continue Breo Ellipta MASSIMO ON CPAP NOCTURNAL HYPOXEMIA CPAP not possible due to nasal packing Spoke with respiratory- oxymask recommended DM TYPE 2 Hold metformin Novolog sliding scale coverage DYSLIPIDEMIA Non-compliant with statin- concerned she will have MSK reaction; had prior rxn' s to 2 statin CAROTID STENOSIS S/p L carotid endarterectomy in 09/2015 Hold ASA for epistaxis Noncompliant with statin DEPRESSION/ ANXIETY Continue Prozac and PRN Xanax DVT PROPHYLAXIS SCD's due to epistaxis FULL CODE per my discussion with the patient DISPOSITION Observation telemetry Follows w/ Dr. Hays for primary care Likely home in AM Vital Signs: Date Time Temp Pulse Resp B/P (MAP) Pulse Ox O2 Delivery O2 Flow Rate FiO2 01/24/17 12:00 Room Air 01/24/17 11:26 82 16 90 Room Air 01/24/17 10:50 35.9 89 20 104/61 (75) 92 Room Air 01/24/17 08:21 36.3 93 20 121/73 (89) 90 Room Air 01/24/17 08:00 Room Air 01/24/17 06:26 93 16 93 Room Air 01/24/17 06:20 86 20 119/60 (79) 93 Room Air 01/24/17 04:00 95 Oxymask 3.0 01/24/17 03:47 36.4 85 18 149/88 (108) 95 Room Air 01/23/17 23:59 95 Oxymask 3.0 01/23/17 23:41 36.8 88 22 155/79 (104) 95 Oxymask 3.0 01/23/17 22:21 36.6 90 20 120/79 (93) 98 Room Air 01/23/17 20:44 36.7 86 24 170/114 93 Room Air 01/23/17 20:10 84 14 90 Room Air 01/23/17 19:54 88 18 157/87 95 01/23/17 18:49 85 18 181/132 94 Room Air 01/23/17 17:14 89 18 165/102 93 Room Air 01/23/17 16:53 81 20 186/109 94 Room Air 01/23/17 14:22 88 20 156/110 98 Room Air Lab Results: Results Past 24 Hours Test 01/23/17 17:45 01/23/17 20:32 01/24/17 00:00 01/24/17 06:11 Range/Units White Blood Count 14.26 4.8-10.8 K/uL Red Blood Count 4.93 4.2-5.4 M/uL Hemoglobin 13.6 12.0-16.0 g/dL Hematocrit 43.3 37-47 % Mean Corpuscular Volume 87.8 80-100 fL Mean Corpuscular Hemoglobin 27.6 25-34 pg Mean Corpuscular Hemoglobin Concent 31.4 32-36 g/dl Platelet Count 377 130-400 K/uL Mean Platelet Volume 9.3 7.4-10.4 fL Neutrophils (%) (Auto) 79.4 % Lymphocytes (%) (Auto) 13.8 % Monocytes (%) (Auto) 5.0 % Eosinophils (%) (Auto) 1.1 % Basophils (%) (Auto) 0.3 % Neutrophils # (Auto) 11.33 1.4-6.5 K/uL Lymphocytes # (Auto) 1.97 1.2-3.4 K/uL Monocytes # (Auto) 0.71 0.11-0.59 K/uL Eosinophils # (Auto) 0.16 0-0.5 K/uL Basophils # (Auto) 0.04 0-0.2 K/uL RDW Standard Deviation 41.5 36.4-46.3 fL RDW Coefficient of Variation 12.9 11.5-14.5 % Immature Granulocyte % (Auto) 0.4 % Immature Granulocyte # (Auto) 0.05 0.00-0.02 K/uL Prothrombin Time 10.6 9.0-12.0 SECONDS Prothromb Time International Ratio 1.0 0.9-1.1 Activated Partial Thromboplast Time 20.1 21.0-31.0 SECONDS Partial Thromboplastin Ratio 0.8 Sodium Level 141 136-145 mmol/L Potassium Level 4.0 3.5-5.1 mmol/L Chloride Level 107 98-107 mmol/L Carbon Dioxide Level 24 21-32 mmol/L Anion Gap 10.0 3-11 mmol/L Blood Urea Nitrogen 16 7-18 mg/dl Creatinine 0.68 0.60-1.20 mg/dl Est Creatinine Clear Calc Drug Dose 83.1 ml/min Estimated GFR () 101.3 Estimated GFR (Non- 87.4 BUN/Creatinine Ratio 22.8 10-20 Random Glucose 108 70-99 mg/dl Calcium Level 9.4 8.5-10.1 mg/dl Total Bilirubin 0.6 0.2-1 mg/dl Direct Bilirubin 0.1 0-0.2 mg/dl Aspartate Amino Transf (AST/SGOT) 13 15-37 U/L Alanine Aminotransferase (ALT/SGPT) 24 12-78 U/L Alkaline Phosphatase 125 45-117 U/L Troponin I < 0.015 0-0.045 ng/ml Total Protein 8.0 6.4-8.2 gm/dl Albumin 4.0 3.4-5.0 gm/dl Lipase 142 73-393 U/L Bedside Glucose 118 175 70-90 mg/dl Urine Color YELLOW Urine Appearance CLEAR CLEAR Urine pH 5.0 4.5-7.5 Urine Specific [place] 1.022 1.000-1.030 Urine Protein NEG NEG Urine Glucose (UA) NEG NEG Urine Ketones 1+ NEG Urine Occult Blood NEG NEG Urine Nitrite NEG NEG Urine Bilirubin NEG NEG Urine Urobilinogen NEG NEG Urine Leukocyte Esterase NEG NEG Test 01/24/17 06:15 01/24/17 13:15 Range/Units White Blood Count 12.86 4.8-10.8 K/uL Red Blood Count 4.71 4.2-5.4 M/uL Hemoglobin 13.6 12.0-16.0 g/dL Hematocrit 41.7 37-47 % Mean Corpuscular Volume 88.5 80-100 fL Mean Corpuscular Hemoglobin 28.9 25-34 pg Mean Corpuscular Hemoglobin Concent 32.6 32-36 g/dl RDW Standard Deviation 42.2 36.4-46.3 fL RDW Coefficient of Variation 12.9 11.5-14.5 % Platelet Count 367 130-400 K/uL Mean Platelet Volume 9.5 7.4-10.4 fL Troponin I < 0.015 0.035 0-0.045 ng/ml
--- NOTE | 2017-01-24 14:46 | ENT PROGRESS NOTE ---
DATE: 01/24/2017 DATE: 01/24/2017 SUBJECTIVE: Since the patient had her 5.5 cm Rapid Rhino placed yesterday by me in the Emergency Room she has not had any significant anterior or posterior epistaxis. She was admitted to the hospitalist service and her blood pressure is under much better control. Her last blood pressure was 104/61. She is complaining of some expected right sinonasal pain and ear pain. She is interested in either going home later today or tomorrow. OBJECTIVE: On examination, her Rapid Rhino balloon is in place with no bleeding anteriorly and no bloody postnasal drip either. Her nasal drip pad was removed since she is not having any bleeding. This led to some comfort and better breathing through the left nasal cavity. IMPRESSION AND RECOMMENDATIONS: A 71-year-old female with history of severe right-sided epistaxis, which responded to ultimate 5.5 cm Rapid Rhino in the right nasal cavity. Her blood pressure is under much better control. From my standpoint, it is okay to discharge her either today or tomorrow and have her follow up in my office on Friday at 8:40 a.m. where my physician miller head assistant wet process, Loreta Lafleur, will see the patient since I am in the operating room that day. The patient needs to be on antibiotic prophylaxis while the pack is in place and she has been prescribed Augmentin 875 mg twice daily by the Emergency Room prior to when she was anticipated to go home. Please send her home with Augmentin as well as our office address and phone number. I will sign off on this consultation, but if you need any further assistance, please do not hesitate to contact me.
[2017-01-25] MEDS: HYDROmorphone INJ 0.5 MG/0.5 ML SYR IV PRN ×2 (01:05→05:52)
[2017-01-25] MEDS: ACETAMINOPHEN 325 MG TAB PO PRN ×2 (03:03→11:44)
[2017-01-25] MEDS: ONDANSETRON INJ 2 MG/ML 2 ML VIAL IV PRN ×2 (03:03→11:41)
[2017-01-25 04:07] VITALS: BP 128/78; PULSE 83; TEMP 36.9; O2SAT 93
[2017-01-25] MEDS: INSULIN ASPART 100 UNITS/ML 3 ML PEN SC SCH ×2 (07:00→11:00)
[2017-01-25] MEDS: ALBUT/IPRATROP 3MG/0.5MG NEB 3 ML VIAL INH SCH ×2 (07:42→11:15)
[2017-01-25 07:43] VITALS: PULSE 70; O2SAT 94
[2017-01-25 07:46] VITALS: BP 125/76; PULSE 77; TEMP 36.6; O2SAT 90
[2017-01-25] MEDS: FLUOXETINE HCL 10 MG CAP PO SCH (08:21)
[2017-01-25] MEDS: AMOXICILLIN/CLAVULANATE TAB 875 MG TAB PO SCH (08:21)
[2017-01-25] MEDS: FAMOTIDINE 20 MG TAB PO SCH (08:21)
[2017-01-25] MEDS: CHOLECALCIFEROL 1000 INTER.UNIT TAB PO SCH (08:22)
[2017-01-25] MEDS: LOSARTAN POTASSIUM 50 MG TAB PO SCH (08:22)
[2017-01-25] MEDS: MULTIVITAMIN TAB PO SCH (08:22)
--- NOTE | 2017-01-25 09:58 | ECHOCARDIOGRAM REPORT ---
*NOTICE TO RECEIVING DEMOCRAT AGENCY This information is strictly Confidential and protected under [place] law. [place] law prohibits you from making any further disclosure of this information unless further disclosure is expressly permitted by the written consent of the person to whom it pertains or is authorized by law. A general authorization for the release of medical or other information is not sufficient for this purpose. Hospital accepts no responsibility if the information is made available to any other person, INCLUDING THE PATIENT. Interpretation Summary * Name: BRITTANEY RIVAS Study Date: 01/25/2017 06:58 AM BP: 128/78 mmHg * Patient Location: .2T\S\S238\S\1 HR: 81 * : 1945 (M/d/yyy) Gender: Female Height: 62 in * Age: 71 yrs Ethnicity: [place] Weight: 214 lb * Ordering Physician: Agustina Cosme * Referring Physician: Self, Referred * Performed By: José Miguel Mehta RDCS * * Reason For Study: Chest pain * BSA: 2.0 m2 * -- Conclusions -- * Small, underfilled, LV chamber with moderate concentric LVH. * Hyperdynamic LV systolic function, EF >70%. * No segmental left ventricular wall motion abnormalities are noted. * Grade I diastolic dysfunction. * Aortic valve sclerosis mild, without significant aortic valvular stenosis. * Mild mitral annular calcifications without stenosis or regurgitation. * Small, loculated, anterior pericardial effusion is present. * Pericardial fibrinous strands are present and suggestive of chronicity. * There are no echocardiographic indications of cardiac tamponade. Procedure Details * A complete two-dimensional transthoracic echocardiogram was performed (2D, M-mode, Doppler and color flow Doppler). * The study was technically adequate. Left Ventricle * The left ventricular cavity is small. * There is moderate concentric left ventricular hypertrophy. * The left ventricle is hyperdynamic. * No segmental left ventricular wall motion abnormalities are noted. * Ejection Fraction = >70 %. * The left ventricular wall motion is normal. Right Ventricle * The right ventricular cavity size is normal (basal dimension <4.2 cm in right ventricular apical 4-chamber view). * The right ventricular systolic function is normal as assessed by tricuspid annular plane systolic excursion (TAPSE) (normal >1.5 cm). Atria * The left atrial size is normal. * Right atrial size is normal. * No ASD detected; PFO is not assessed. Mitral Valve * There is mild mitral annular calcification. * There is no mitral valve stenosis. * There is no mitral regurgitation noted. Tricuspid Valve * The tricuspid valve is normal in structure and function. Aortic Valve * The aortic valve is trileaflet. * Aortic valve sclerosis mild, without significant aortic valvular stenosis. * There is no significant aortic regurgitation. Pulmonic Valve * The pulmonary valve is not well seen, but the Doppler examination is normal without significant regurgitation or stenosis. Great Vessels * The aortic root and proximal ascending aorta are normal sized. Pericardium/Pleural * Small pericardial effusion. * A loculated pericardial effusion is noted. * Pericardial fibrinous strands are noted. * There are no echocardiographic indications of cardiac tamponade. Left Ventricular Diastolic Function * Grade I diastolic dysfunction, (abnormal relaxation pattern). MMode 2D Measurements and Calculations IVSd 1.7 cm IVSs 2.1 cm LVIDd 3.5 cm LVIDs 1.5 cm LVPWd 1.5 cm LVPWs 1.9 cm IVS/LVPW 1.1 FS 55.8 % EDV(Teich) 50.5 ml ESV(Teich) 6.5 ml EF(Teich) 87.1 % EDV(cubed) 42.5 ml ESV(cubed) 3.7 ml EF(cubed) 91.3 % % IVS thick 26.4 % % LVPW thick 27.5 % LV mass(C)d 215.3 grams LV mass(C)dI 109.5 grams/m\S\2 LV mass(C)s 144.9 grams LV mass(C)sI 73.7 grams/m\S\2 SV(Teich) 44.0 ml SI(Teich) 22.4 ml/m\S\2 SV(cubed) 38.8 ml SI(cubed) 19.7 ml/m\S\2 Ao root diam 2.8 cm Ao root area 6.3 cm\S\2 ACS 1.5 cm LA dimension 3.7 cm asc Aorta Diam 2.6 cm LA/Ao 1.3 LVOT diam 1.9 cm LVOT area 2.9 cm\S\2 LVAd ap4 19.7 cm\S\2 LVLd ap4 7.6 cm EDV(MOD-sp4) 40.0 ml LVAs ap4 8.3 cm\S\2 LVLs ap4 6.0 cm ESV(MOD-sp4) 9.1 ml EF(MOD-sp4) 77.2 % LVAd ap2 22.6 cm\S\2 LVLd ap2 7.9 cm EDV(MOD-sp2) 51.7 ml LVAs ap2 10.3 cm\S\2 LVLs ap2 6.0 cm ESV(MOD-sp2) 14.4 ml EF(MOD-sp2) 72.1 % SV(MOD-sp4) 30.9 ml SI(MOD-sp4) 15.7 ml/m\S\2 SV(MOD-sp2) 37.3 ml SI(MOD-sp2) 19.0 ml/m\S\2 Doppler Measurements and Calculations MV E max all 116.3 cm/sec MV A max all 146.9 cm/sec MV E/A 0.79 MV dec time 0.30 sec Ao V2 max 196.7 cm/sec Ao max PG 15.5 mmHg Ao max PG (full) 8.9 mmHg USAMA(V,A) 1.9 cm\S\2 USAMA(V,D) 1.9 cm\S\2 LV V1 max PG 6.5 mmHg LV V1 max 127.9 cm/sec PA V2 max 120.5 cm/sec PA max PG 5.8 mmHg PA acc slope 793.1 cm/sec\S\2 PA acc time 0.11 sec PA pr(Accel) 28.3 mmHg
--- NOTE | 2017-01-25 10:15 | Progress Note ---
Internal Med Progress Note Date of Service: Jan 25, 2017. Provider Documentation: SUBJECTIVE: The patient was seen and examined Admitted with Uncontrolled Epistaxis and Very High Blood pressure Has some chest tightness No more Nose bleed Superficial pack is out minimal discomfort in sinus areas OBJECTIVE: Vital Signs-as noted below Exam: General-no distress Has nose pack in place,no more Epistaxis Eyes-normal ENT-normal Neck-supple Lungs-Clear to auscultate bilaterally Heart-Regular,no masses.bowel sound present Abdomen-Benign,no masses,bowel sound present Extremities-Negative for any edema Neuro-AAOx3 Lab data as noted below. ASSESSMENT & PLAN: EPISTAXIS Packed multiple times in ER; ultimately seen by ENT Dr. Tovar and hemostasis achieved Hemoglobin is stable Continue Augmentin given in ER IV Dilaudid for pain control Hold aspirin Appreciate ENT input Keep Nasal Pack for 5 days Will be seen in ENT clinic on Friday Acute Sinusitis Continue Augmentin HYPERTENSIVE URGENCY Presented with BP 210's/140's, received IV hydralazine, latest BP 189/106 Had chest discomfort earlier- will check EKG and troponin-EKG has Low Voltage and Troponin negative Usually controlled on Losartan 100 mg daily BP is improving Continue Home medication BP is well controlled ASTHMA/ COPD EXACERBATION Check CXR-no pneumonia Continue Augmentin Prednisone 40 mg PO daily x 5 days Nebs QIDR and PRN Continue Breo Ellipta MASSIMO ON CPAP NOCTURNAL HYPOXEMIA CPAP not possible due to nasal packing Spoke with respiratory- oxymask recommended DM TYPE 2 Hold metformin Novolog sliding scale coverage DYSLIPIDEMIA Non-compliant with statin- concerned she will have MSK reaction; had prior rxn' s to 2 statin CAROTID STENOSIS S/p L carotid endarterectomy in 09/2015 Hold ASA for epistaxis Noncompliant with statin DEPRESSION/ ANXIETY Continue Prozac and PRN Xanax DVT PROPHYLAXIS SCD's due to epistaxis FULL CODE per my discussion with the patient DISPOSITION Observation telemetry Follows w/ Dr. Hays for primary care Likely home this PM Vital Signs: Date Time Temp Pulse Resp B/P (MAP) Pulse Ox O2 Delivery O2 Flow Rate FiO2 01/25/17 08:00 Room Air 01/25/17 07:46 36.6 77 18 125/76 (92) 90 Room Air 01/25/17 07:43 70 16 94 Room Air 01/25/17 04:07 36.9 83 22 128/78 (95) 93 Room Air 01/25/17 04:00 Room Air 01/25/17 00:00 Room Air 01/24/17 23:30 37.0 87 22 134/81 (98) 91 Room Air 01/24/17 20:32 Room Air 01/24/17 19:51 37.0 90 22 126/72 (90) 92 Room Air 01/24/17 19:20 87 16 91 Room Air 01/24/17 17:00 37.1 88 19 123/81 (95) 91 Room Air 01/24/17 16:00 Room Air 01/24/17 15:39 88 16 89 Room Air 01/24/17 12:00 Room Air 01/24/17 11:26 82 16 90 Room Air 01/24/17 10:50 35.9 89 20 104/61 (75) 92 Room Air Lab Results: Results Past 24 Hours Test 01/24/17 13:15 01/24/17 15:58 01/24/17 20:22 01/25/17 06:56 Range/Units Troponin I 0.035 0-0.045 ng/ml Bedside Glucose 164 181 142 70-90 mg/dl
[2017-01-25 11:12] VITALS: BP 133/78; PULSE 77; TEMP 37.2; O2SAT 93
[2017-01-25 11:15] VITALS: PULSE 78; O2SAT 91
[2017-01-25] MEDS ORDERED: LCTX PO (13:10)
[2017-01-25] MEDS ORDERED: OXYC-57 PO (13:10)
[2017-01-25] MEDS ORDERED: AMOX1TAB43 PO (13:10)
--- NOTE | 2017-01-25 13:15 | Discharge Instructions ---
Discharge Instructions Date of Service Jan 25, 2017. Admission Reason for Admission: Nose Bleed Discharge Discharge Diagnosis / Problem: Epistaxis,Hypertensive Urgency Discharge Goals Goal(s): Prevent Disease Progression Activity Recommendations Activity Limitations: resume your previous activity . Instructions / Follow-Up Instructions / Follow-Up Dr Hays on 01/31/17 at 11:00AM.Please keep appointment with ENT office ( [address] [place] [address]) on Friday at 8:[address] Tovar #[phone] Current Hospital Diet Patient's current hospital diet: AHA Diet (Heart Healthy) Discharge Diet Recommended Diet: AHA Diet (Heart Healthy), Low Sodium Diet (2gm Na) Pending Studies Studies pending at discharge: no Medical Emergencies . Who to Call and When: Medical Emergencies: If at any time you feel your situation is an emergency, please call 911 immediately. . Non-Emergent Contact Non-Emergency issues call your: Primary Care Provider . Past History Medical & Surgical History: (1) Hypertension (2) Epistaxis (3) DM type 2 (diabetes mellitus, type 2) (4) Depression (5) Asthma, allergic (6) IBS (irritable bowel syndrome) (7) Chronic sinusitis (8) COPD, moderate (9) GERD (gastroesophageal reflux disease) (10) MGUS (monoclonal gammopathy of unknown significance) (11) H/O sinus surgery (12) S/P total knee arthroplasty (13) S/P section (14) History of cataract surgery (15) S/P cholecystectomy (16) S/P tonsillectomy and adenoidectomy (17) S/P carotid endarterectomy (18) History of hysterectomy . "Provider Documentation" section prepared by Agustina Cosme. . VTE Core Measure Inpt VTE Proph given/why not?: SCD's
[2017-01-25 13:45] VITALS: BP 133/78; PULSE 78; TEMP 37.2; O2SAT 91
--- NOTE | 2017-01-26 07:21 | Discharge Summary ---
Discharge Summary Date of Service Jan 26, 2017. Discharge Summary Admission Date: Jan 23, 2017 at 18:59 Discharge Date: Jan 25, 2017 Discharge Disposition: Home Principal Diagnosis: Epistaxis,Hypertensive Urgency Secondary Diagnoses/Problems: Please see H&P and Hospital Progress note Consultations: ENT Medication Reconciliation New Medications: Lactobacillus Acidophilus (Lactinex) Tab 2 TAB PO BID, #30 TAB Oxycodone/Acetaminophen 5MG/325MG (Percocet 5MG/325MG) Tab 1 TABLET PO Q4H PRN for Pain, #12 TAB Amoxicillin & Pot Clavulanate (Amoxicillin/Clavulanate P) 1 Tab Tab 875 MG PO BIDM for 7 Days, #14 TAB Continued Medications: Acetaminophen (Acetaminophen) 500 Mg Tab 1000 MG PO Q6 PRN for Pain or Fever for 15 Days, #120 TAB Albuterol Sulfate (Proair Respiclick) 108 Mcg/Act Aer 2 PUFF INH QID PRN for Shortness of Breath Alprazolam (Xanax) 0.5 Mg Tab 0.5 MG PO HS PRN for sleep or anxiety, TAB Aspirin (Aspir-Low) 81 Mg Tab 1 TAB PO DAILY for 30 Days, #30 TAB 3 Refills Can start after ENT evaluation Cholecalciferol (Vitamin D) 1,000 Unit Tab 1 TAB PO QAM Estradiol (Estradiol Transdermal System) 0.025 Mg/24 Hr Dis 1 PATCH TD WK, PATCH Famotidine (Pepcid) 20 Mg Tab 20 MG PO BID, TAB Fluoxetine (Prozac) 10 Mg Cap 10 MG PO QAM, CAP Fluticasone Furoate-Vilanterol (Breo Ellipta 200-25 Mcg/INH) 1 Inh Inh 1 PUFF INH DAILY Levalbuterol (Levalbuterol) 1.25 Mg/0.5 Ml Nebu 2 ML NEB Q4H PRN for SOB/Wheezing Levocetirizine Dihydrochloride (Xyzal) 5 Mg Tab 1 TAB PO DAILY for 30 Days, #30 TAB 5 Refills Losartan Potassium (Cozaar) 50 Mg Tab 100 MG PO QAM, TAB Metformin Hcl (Glucophage) 500 Mg Tab 500 MG PO DAILY Multivitamin (Multivitamin) Tab 1 TAB PO QAM, TAB Admission Information HPI (per Admitting provider): This is a 71 y/o female with PMH of hypertension, carotid stenosis s/p L carotid endarterectomy in 09/2015, asthma, COPD, nocturnal hypoxemia, AMSSIMO on CPAP , DM 2, and other problems listed below who presented to the ED with epistaxis. Patient reports 1 week hx of increased coughing with thicker darker yellow sputum from baseline. She had increased wheezing/ SOB for a few days and was using her neb treatment QID. She attributes this to worsening asthma triggered by hot/humid weather. Also has environmental allergies. She was sneezing/ coughing a lot yesterday, then today around 9 am coughed up postnasal drip and noticed bright red blood. Then developed gushing of blood from the right nostril. She was unable to stop the bleeding at home so called 911 and was brought to ER. In the ER her nose was packed multiple times but she continued to have recurrent bleeding. She was seen by ENT Dr. Tovar and the bleeding was stopped. Patient's BP was elevated to 210s/140s on arrival. She was treated with hydralazine 10 mg IV. Latest BP was 180s/100s. In clinic her BP's run 120s- 150s systolic. Pt is compliant with Losartan 100 mg daily. She admits to feeling anxious in the ER and she is in significant pain from the packing. Earlier today had central chest tightness attributed to anxiety. Not feeling CP or SOB currently. A neb treatment was given in the ER. Had 1 loose BM after Augmentin given in ER. She denies fever, chills, BANGURA, abdominal pain, vomiting, dysuria, edema, calf pain. Takes baby ASA for hx carotid endarterectomy. No hx CAD or stroke. Not on blood thinner or NSAIDs. Past Medical/Surgical History Medical Problems: (1) Anxiety Status: Chronic (2) Asthma, allergic Status: Chronic (3) Carotid stenosis Status: Chronic (4) Chronic rhinitis Status: Chronic (5) Chronic sinusitis Status: Chronic (6) COPD, moderate Status: Chronic (7) Depression Status: Chronic (8) DM type 2 (diabetes mellitus, type 2) Status: Chronic (9) GERD (gastroesophageal reflux disease) Status: Chronic (10) Hyperlipidemia Status: Chronic (11) Hypertension Status: Chronic (12) IBS (irritable bowel syndrome) Status: Chronic (13) MGUS (monoclonal gammopathy of unknown significance) Status: Chronic (14) Nocturnal hypoxia Status: Chronic (15) Obstructive sleep apnea on CPAP Status: Chronic (16) Osteoarthritis Status: Chronic Surgical Problems: (1) H/O sinus surgery Permanent Comment: x2 Status: Chronic (2) History of cataract surgery Status: Chronic (3) History of hysterectomy Status: Chronic (4) S/P carotid endarterectomy Permanent Comment: left, 09/2015 Status: Chronic (5) S/P section Status: Chronic (6) S/P cholecystectomy Status: Chronic (7) S/P tonsillectomy and adenoidectomy Status: Chronic (8) S/P total knee arthroplasty Permanent Comment: left Status: Chronic Family History Diabetes mellitus GI malignancy Social History Smoking Status: Former Smoker Alcohol Use: none Drug Use: none Marital Status: Housing status: lives alone Occupational Status: retired Immunizations History of Influenza Vaccine: Yes History of Tetanus Vaccine?: Yes History of Pneumococcal: Yes History of Hepatitis B Vaccine: Yes Multi-Drug Resistant Organisms History of MDRO: No Allergies Coded Allergies: CAMMIE Inhibitors (Verified Allergy, Unknown, COUGH, 08/14/16) Cefaclor (Verified Allergy, Unknown, HIVES, 08/14/16) Erythromycin (Verified Allergy, Unknown, HIVES, 08/14/16) Hyoscyamine (Verified Allergy, Unknown, HALLUCINATIONS, 08/14/16) Saccharin (Verified Allergy, Unknown, WHEEZING, 08/14/16) Sorbitol (Verified Allergy, Unknown, STOMACH PAIN, 08/14/16) Sulfa Drugs (Verified Allergy, Unknown, HIVES, 08/14/16) Sulfites (Verified Allergy, Unknown, WHEEZING, 08/14/16) Etodolac (Verified Adverse Reaction, Unknown, STOMACH PAIN, 08/22/16) Levofloxacin (Verified Adverse Reaction, Unknown, BRAIN FOG AND SPACEY, ) Home Medications Scheduled Aspirin (Aspir-Low), 1 TAB PO DAILY Cholecalciferol (Vitamin D), 1 TAB PO QAM Estradiol (Estradiol Transdermal System), 1 PATCH TD WK Famotidine (Pepcid), 20 MG PO BID Fluoxetine (Prozac), 10 MG PO QAM Fluticasone Furoate-Vilanterol (Breo Ellipta 200-25 Mcg/INH), 1 PUFF INH DAILY Levocetirizine Dihydrochloride (Xyzal), 1 TAB PO DAILY Losartan Potassium (Cozaar), 100 MG PO QAM Metformin Hcl (Glucophage), 500 MG PO DAILY Multivitamin (Multivitamin), 1 TAB PO QAM Scheduled PRN Acetaminophen (Acetaminophen), 1,000 MG PO Q6 PRN for Pain or Fever Albuterol Sulfate (Proair Respiclick), 2 PUFF INH QID PRN for Shortness of Breath Alprazolam (Xanax), 0.5 MG PO HS PRN for sleep or anxiety Levalbuterol (Levalbuterol), 2 ML NEB Q4H PRN for SOB/Wheezing Review of Systems Ten systems reviewed and negative except as noted in HPI. Physical Ex - H&P Physical Exam Vital Signs Date Time Temp Pulse Resp B/P (MAP) Pulse Ox O2 Delivery O2 Flow Rate FiO2 01/23/17 18:49 85 18 181/132 94 Room Air 01/23/17 17:14 89 18 165/102 93 Room Air 01/23/17 16:53 81 20 186/109 94 Room Air 01/23/17 14:22 88 20 156/110 98 Room Air 01/23/17 13:13 36.4 106 18 217/147 94 Room Air General Appearance: + obese, + pertinent finding (alert cooperative 71 y/o female, mild distress due to pain) Head: normocephalic, atraumatic Eyes: normal inspection, PERRL, sclerae normal ENT: hearing grossly normal, pharynx normal (no blood in posterior pharynx), + pertinent finding (nasal packing in place. mild bilateral maxillary sinus tenderness) Neck: supple Respiratory/Chest: no respiratory distress, no accessory muscle use, + wheezing (moderate wheezing throughout) Cardiovascular: regular rate, rhythm, no murmur Abdomen/GI: normal bowel sounds, non tender, soft Extremities/Musculoskelatal: no calf tenderness, + pertinent finding (trace pedal edema on the left- chronic per patient. RLE- no edema. DP pulses 2+) Neurologic/Psych: alert, normal mood/affect, oriented x 3 Skin: normal color, warm/dry Diagnostics - H&P Diagnostics Laboratory Results Results Past 24 Hours Test 01/23/17 17:45 Range/Units White Blood Count 14.26 4.8-10.8 K/uL Red Blood Count 4.93 4.2-5.4 M/uL Hemoglobin 13.6 12.0-16.0 g/dL Hematocrit 43.3 37-47 % Mean Corpuscular Volume 87.8 80-100 fL Mean Corpuscular Hemoglobin 27.6 25-34 pg Mean Corpuscular Hemoglobin Concent 31.4 32-36 g/dl Platelet Count 377 130-400 K/uL Mean Platelet Volume 9.3 7.4-10.4 fL Neutrophils (%) (Auto) 79.4 % Lymphocytes (%) (Auto) 13.8 % Monocytes (%) (Auto) 5.0 % Eosinophils (%) (Auto) 1.1 % Basophils (%) (Auto) 0.3 % Neutrophils # (Auto) 11.33 1.4-6.5 K/uL Lymphocytes # (Auto) 1.97 1.2-3.4 K/uL Monocytes # (Auto) 0.71 0.11-0.59 K/uL Eosinophils # (Auto) 0.16 0-0.5 K/uL Basophils # (Auto) 0.04 0-0.2 K/uL RDW Standard Deviation 41.5 36.4-46.3 fL RDW Coefficient of Variation 12.9 11.5-14.5 % Immature Granulocyte % (Auto) 0.4 % Immature Granulocyte # (Auto) 0.05 0.00-0.02 K/uL Prothrombin Time 10.6 9.0-12.0 SECONDS Prothromb Time International Ratio 1.0 0.9-1.1 Activated Partial Thromboplast Time 20.1 21.0-31.0 SECONDS Partial Thromboplastin Ratio 0.8 Sodium Level 141 136-145 mmol/L Potassium Level 4.0 3.5-5.1 mmol/L Chloride Level 107 98-107 mmol/L Carbon Dioxide Level 24 21-32 mmol/L Anion Gap 10.0 3-11 mmol/L Blood Urea Nitrogen 16 7-18 mg/dl Creatinine 0.68 0.60-1.20 mg/dl Est Creatinine Clear Calc Drug Dose 83.1 ml/min Estimated GFR () 101.3 Estimated GFR (Non- 87.4 BUN/Creatinine Ratio 22.8 10-20 Random Glucose 108 70-99 mg/dl Calcium Level 9.4 8.5-10.1 mg/dl Total Bilirubin 0.6 0.2-1 mg/dl Direct Bilirubin 0.1 0-0.2 mg/dl Aspartate Amino Transf (AST/SGOT) 13 15-37 U/L Alanine Aminotransferase (ALT/SGPT) 24 12-78 U/L Alkaline Phosphatase 125 45-117 U/L Total Protein 8.0 6.4-8.2 gm/dl Albumin 4.0 3.4-5.0 gm/dl Lipase 142 73-393 U/L Impression - H&P Impression Assessment and Plan EPISTAXIS Packed multiple times in ER; ultimately seen by ENT Dr. Tovar and hemostasis achieved Hemoglobin is stable BP elevated which is a contributing factor- will attempt improved BP control Continue Augmentin given in ER IV Dilaudid for pain control Hold aspirin Recheck CBC in am Consult ENT HYPERTENSIVE URGENCY Presented with BP 210's/140's, received IV hydralazine, latest BP 189/106 Had chest discomfort earlier- will check EKG and troponin Usually controlled on Losartan 100 mg daily Anxiety/ pain likely contributing PRN IV hydralazine added Continue Losartan Monitor in telemetry ASTHMA/ COPD EXACERBATION Check CXR Continue Augmentin Prednisone 40 mg PO daily x 5 days Nebs QIDR and PRN Continue Breo Ellipta MASSIMO ON CPAP NOCTURNAL HYPOXEMIA CPAP not possible due to nasal packing Spoke with respiratory- oxymask recommended DM TYPE 2 Hold metformin Novolog sliding scale coverage DYSLIPIDEMIA Non-compliant with statin- concerned she will have MSK reaction; had prior rxn' s to 2 statin CAROTID STENOSIS S/p L carotid endarterectomy in 09/2015 Hold ASA for epistaxis Noncompliant with statin DEPRESSION/ ANXIETY Continue Prozac and PRN Xanax DVT PROPHYLAXIS SCD's due to epistaxis FULL CODE per my discussion with the patient DISPOSITION Observation telemetry Follows w/ Dr. Hays for primary care Patient seen in collaboration with Dr. Mcginnis. Please see his addendum. VTE Prophylaxis VTE Risk Assessment Done? Y/N: Yes Risk Level: Moderate Note ATTENDING ADDENDUM Record reviewed. Patient interviewed and examined in ED. Care coordinated with Radha Alegre PA-C. Please refer to her documentation for patient's history. Briefly, 71-year-old female with history of carotid artery disease on aspirin therapy, hypertension, asthma, diabetes, and other problems as noted. Presented to the ED with severe epistaxis. ENT was consulted and hemostasis was achieved. Hospitalization for observation was recommended. EXAM: General- no distress VS- as noted HEENT- nasal packing Lungs- moderate wheezing Heart- regular Abdomen- normal bowel sounds, soft, nontender Extremities- no pretibial edema or calf tenderness Neuro- alert, oriented DATA: Lab studies as noted. ASSESSMENT AND PLAN: Severe epistaxis. Seen by ENT; hemostasis achieved. Hold aspirin. BPs elevated. Continue usual meds + PRN hydralazine as needed to keep systolic BP < 140. Bronchospasm probably secondary to bronchitis; no definite infiltrates on chest x-ray. Amoxicillin/clavulanic acid, steroids, bronchodilators ordered. Uses CPAP for MASSIMO / nocturnal hypoxia. Will use simple face mask for nighttime supplemental oxygenation until OK with ENT to resume CPAP. Please refer to SUNG Aelgre's documentation for discussion of other issues. Nehemias Mcginnis MD . Physical Exam (per Admitting): General Appearance: + obese, + pertinent finding (alert cooperative 71 y/o female, mild distress due to pain) Head: normocephalic, atraumatic Eyes: normal inspection, PERRL, sclerae normal ENT: hearing grossly normal, pharynx normal (no blood in posterior pharynx) , + pertinent finding (nasal packing in place. mild bilateral maxillary sinus tenderness) Neck: supple Respiratory/Chest: no respiratory distress, no accessory muscle use, + wheezing (moderate wheezing throughout) Cardiovascular: regular rate, rhythm, no murmur Abdomen/GI: normal bowel sounds, non tender, soft Extremities/Musculoskelatal: no calf tenderness, + pertinent finding (trace pedal edema on the left- chronic per patient. RLE- no edema. DP pulses 2+) Neurologic/Psych: alert, normal mood/affect, oriented x 3 Skin: normal color, warm/dry Hospital Course EPISTAXIS Packed multiple times in ER; ultimately seen by ENT Dr. Tovar and hemostasis achieved Hemoglobin is stable Continue Augmentin given in ER IV Dilaudid for pain control Hold aspirin Appreciate ENT input Keep Nasal Pack for 5 days Will be seen in ENT clinic on Friday Acute Sinusitis Continue Augmentin HYPERTENSIVE URGENCY Presented with BP 210's/140's, received IV hydralazine, latest BP 189/106 Had chest discomfort earlier- will check EKG and troponin-EKG has Low Voltage and Troponin negative Usually controlled on Losartan 100 mg daily BP is improving Continue Home medication BP is well controlled ASTHMA/ COPD EXACERBATION Check CXR-no pneumonia Continue Augmentin Prednisone 40 mg PO daily x 5 days Nebs QIDR and PRN Continue Breo Ellipta MASSIMO ON CPAP NOCTURNAL HYPOXEMIA CPAP not possible due to nasal packing Spoke with respiratory- oxymask recommended DM TYPE 2 Hold metformin Novolog sliding scale coverage DYSLIPIDEMIA Non-compliant with statin- concerned she will have MSK reaction; had prior rxn' s to 2 statin CAROTID STENOSIS S/p L carotid endarterectomy in 09/2015 Hold ASA for epistaxis Noncompliant with statin DEPRESSION/ ANXIETY Continue Prozac and PRN Xanax DVT PROPHYLAXIS SCD's due to epistaxis FULL CODE per my discussion with the patient DISPOSITION Observation telemetry Follows w/ Dr. Hays for primary care Likely home this PM Total time spent on discharge = 35 minutes This includes examination of the patient, discharge planning, medication reconciliation, and communication with other providers. Discharge Instructions Date of Service Jan 25, 2017. Admission Reason for Admission: Nose Bleed Discharge Discharge Diagnosis / Problem: Epistaxis,Hypertensive Urgency Discharge Goals Goal(s): Prevent Disease Progression Activity Recommendations Activity Limitations: resume your previous activity . Instructions / Follow-Up Instructions / Follow-Up Dr Hays on 01/31/17 at 11:00AM.Please keep appointment with ENT office ( [address] [place] [address]) on Friday at 8:[address] Tovar #[phone] Current Hospital Diet Patient's current hospital diet: AHA Diet (Heart Healthy) Discharge Diet Recommended Diet: AHA Diet (Heart Healthy), Low Sodium Diet (2gm Na) Pending Studies Studies pending at discharge: no Medical Emergencies . Who to Call and When: Medical Emergencies: If at any time you feel your situation is an emergency, please call 911 immediately. . Non-Emergent Contact Non-Emergency issues call your: Primary Care Provider . Past History Medical & Surgical History: (1) Hypertension (2) Epistaxis (3) DM type 2 (diabetes mellitus, type 2) (4) Depression (5) Asthma, allergic (6) IBS (irritable bowel syndrome) (7) Chronic sinusitis (8) COPD, moderate (9) GERD (gastroesophageal reflux disease) (10) MGUS (monoclonal gammopathy of unknown significance) (11) H/O sinus surgery (12) S/P total knee arthroplasty (13) S/P section (14) History of cataract surgery (15) S/P cholecystectomy (16) S/P tonsillectomy and adenoidectomy (17) S/P carotid endarterectomy (18) History of hysterectomy . "Provider Documentation" section prepared by Agustina Cosme. . VTE Core Measure Inpt VTE Proph given/why not?: SCD's <Electronically signed by Agustina Cosme M.D.> Signed: 01/25/17 1907 Additional Copies To Andrae Hays MD
[2017-03-12] MEDS ORDERED: FLUT1INH7 INH (09:11)
[2017-03-12] MEDS ORDERED: ASPCH81X PO (09:11)
[2017-03-12] MEDS ORDERED: LEVA45AE INH (09:11)
== END 2017-01-25 14:25 | disposition home or self-care (01) ==
LOC: EDBD 13:06 → C.EDB 13:08 → C.2T 18:59 → ENRESERV 19:27
PROVIDERS: ADMIT Hospitalist; ATTEND Internal Medicine
DX: R04.0 Epistaxis (principal); I16.0 Hypertensive urgency; I65.22 Occlusion and stenosis of left carotid artery; E78.5 Hyperlipidemia, unspecified; E11.9 Type 2 diabetes mellitus without complications; K21.9 Gastro-esophageal reflux disease without esophagitis; J44.9 Chronic obstructive pulmonary disease, unspecified; G47.33 Obstructive sleep apnea (adult) (pediatric); D47.2 Monoclonal gammopathy; K58.9 Irritable bowel syndrome, unspecified; F41.9 Anxiety disorder, unspecified; Z87.891 Personal history of nicotine dependence; Z79.82 Long term (current) use of aspirin; Z79.84 Long term (current) use of oral hypoglycemic drugs; Z79.899 Other long term (current) drug therapy

== ENCOUNTER → 2017-03-20 | Day surgery (SDC) | payer OTHER, MEDICARE ==
[2017-03-12 09:14] VITALS: BMI 37.0
[~2017-03-20] VITALS: Ht 160 cm; Wt 95.5 kg
[~2017-03-20] MED LIST changes: +ACET500T57 PO; +ESTR0.02 TD; -ESTRADIOL EXT; +FLUT1INH7 INH; -FLUT220A INH; +GLC/500 PO; -GLC500 PO; +LEVO-371 PO; +LIDOCAINE HCL 2% 2 ML VIAL (20MG/ML) ONE; -MONT1TAB3 PO; +PROPOFOL IV EMULSION 10 MG/ML 20 ML VIAL IV ONE; +SODIUM CHLORIDE 0.9% 500ML 500 ML IV ONE
[2017-03-20 09:02] VITALS: Ht 160 cm; Wt 95.5 kg
--- NOTE | 2017-03-20 09:46 | Endo History and Physical ---
History & Physical Date of Service: Mar 20, 2017. Chief Complaint: FOOD GETS STUCK REFLUX BLOATING ABD PAIN Referring Physician: DR MATHEW History of Present Illness Dysphagia Past Surgical History Hx Cardiac Surgery: Yes (LEFT CAROTID ENDARTERECTOMY) Hx Internal Defibrillator: No Hx Pacemaker: No Hx Abdominal Surgery: Yes (TAHBSO, C-SECTIONX2, LAP CESAR, D&C, EXPLOR LAP) Hx Post-Op Nausea and Vomiting: No Hx Cancer Surgery: No Hx Thoracic Surgery: No Hx Orthopedic: Yes (LEFT TKA, RT HAND TRIGGER FINGER RELEASE) Hx Urinary Tract Surgery: No Family History IBD Social History Smoking Status: Former Smoker Hx Substance Use: No Hx Alcohol Use: No Allergies Coded Allergies: CAMMIE Inhibitors (Verified Allergy, Unknown, COUGH, 03/20/17) Cefaclor (Verified Allergy, Unknown, HIVES, 03/20/17) Erythromycin (Verified Allergy, Unknown, HIVES, 03/20/17) Hyoscyamine (Verified Allergy, Unknown, HALLUCINATIONS, 03/20/17) Saccharin (Verified Allergy, Unknown, WHEEZING, 03/20/17) Sorbitol (Verified Allergy, Unknown, STOMACH PAIN, 03/20/17) Sulfa Drugs (Verified Allergy, Unknown, HIVES, 03/20/17) Sulfites (Verified Allergy, Unknown, WHEEZING, 03/20/17) Etodolac (Verified Adverse Reaction, Unknown, STOMACH PAIN, 03/20/17) Levofloxacin (Verified Adverse Reaction, Unknown, BRAIN FOG AND SPACEY, ) Current Medications Reported Home Medications Medications Dose Route/Sig Max Daily Dose Days Date Category Dose Instructions Aspirin Chewable (Aspirin) 81 Mg Chew 81 Mg PO QAM 03/12/17 Reported Breo Ellipta 200-25 Mcg/INH (Fluticasone Furoate-Vilanterol) 1 Inh Inh 1 Dose INH QAM 03/12/17 Reported HAS NOT USED IN LAST WEEK. Levalbuterol Tartrate Hfa (Levalbuterol Tartrate) 45 Mcg/Act Aer 1 Dose INH Q4H PRN 03/12/17 Reported Xyzal (Levocetirizine Dihydrochloride) 5 Mg Tab 1 Tab PO HS 30 01/23/17 Reported Estradiol Transdermal System (Estradiol) 0.025 Mg/24 Hr Dis 1 Patch TD WK 01/23/17 Reported Acetaminophen 500 Mg Tab 1,000 Mg PO Q6 PRN 15 01/23/17 Reported Glucophage (Metformin Hcl) 500 Mg Tab 500 Mg PO QAM 01/23/17 Reported Multivitamin (Multivitamins) Tab 1 Tab PO QAM 08/14/16 Reported Vitamin D (Cholecalciferol) 1,000 Unit Tab 1 Tab PO QAM 08/14/16 Reported Proair Respiclick (Albuterol Sulfate) 108 Mcg/Act Aer 2 Puff INH QID PRN 08/14/16 Reported Pepcid (Famotidine) 20 Mg Tab 20 Mg PO BID 08/14/16 Reported Prozac (Fluoxetine HCl) 10 Mg Cap 10 Mg PO QAM 08/14/16 Reported Xanax (Alprazolam) 0.5 Mg Tab 0.5 Mg PO HS PRN 08/14/16 Reported Cozaar (Losartan Potassium) 50 Mg Tab 100 Mg PO QAM 08/14/16 Reported Vital Signs Weight (Kilograms): 95.45 Height (Feet): 5 Height (Inches): 3 Date Time Temp Pulse Resp B/P (MAP) Pulse Ox O2 Delivery O2 Flow Rate FiO2 03/20/17 09:09 37 72 22 179/88 (118) 96 Room Air Physical Exam General Appearance: WD/WN, no apparent distress Respiratory/Chest: Auscultation: breath sounds normal Cardiovascular: Heart Auscultation: RRR Abdomen: Inspection & Palpation: soft Assessment and Plan Dysphagia - EGD
--- NOTE | 2017-03-20 10:22 | Discharge Instructions ---
Endoscopy Patient Instructions Date / Procedure(s) Performed Mar 20, 2017. EGD Allergy Information Coded Allergies: CAMMIE Inhibitors (Verified Allergy, Unknown, COUGH, 03/20/17) Cefaclor (Verified Allergy, Unknown, HIVES, 03/20/17) Erythromycin (Verified Allergy, Unknown, HIVES, 03/20/17) Hyoscyamine (Verified Allergy, Unknown, HALLUCINATIONS, 03/20/17) Saccharin (Verified Allergy, Unknown, WHEEZING, 03/20/17) Sorbitol (Verified Allergy, Unknown, STOMACH PAIN, 03/20/17) Sulfa Drugs (Verified Allergy, Unknown, HIVES, 03/20/17) Sulfites (Verified Allergy, Unknown, WHEEZING, 03/20/17) Etodolac (Verified Adverse Reaction, Unknown, STOMACH PAIN, 03/20/17) Levofloxacin (Verified Adverse Reaction, Unknown, BRAIN FOG AND SPACEY, ) Discharge Date / Findings Mar 20, 2017. Normal exam Medication Instructions Stopped Medication(s): GLUCOPHAGE Resume today Provider Instructions Activity Restrictions - No exercising or heavy lifting for 24 hours. - Do not drink alcohol the day of the procedure. - Do not drive a car or operate machinery until the day after the procedure. - Do not make any important decisions or sign important papers in 24 hours after the procedure. Following Day: - Return to full activity which may include returning to work/school. Diet Start your diet with liquids and light foods (jello, soup, juice, toast). Then eat your usual diet if not nauseated. Treatment For Common After Affects For mild abdominal pain, bloating, or excessive gas: - Rest - Eat lightly - Lie on right side Follow-Up Information Follow-up with DR MATHEW as scheduled Anesthesia Information What You Should Know You have had a procedure that required some medicine to reduce anxiety and discomfort. This treatment is called moderate sedation. After receiving the treatment, you may be sleepy, but you will be able to breathe on your own. The effects of the treatment may last for several hours. Follow these instructions along with Activity/Diet recommendations noted above: * Do NOT do anything where dizziness or clumsiness would be dangerous. * Rest quietly at home today, then you can be up and about tomorrow. * Have a responsible person stay with you the rest of today. * You may have had an I.V. today. If so, you may take the dressing off later today. Recommendations Call your doctor if: * Trouble breathing * Continuous vomiting for more than 24 hours * Temperature above 101 degrees * Severe abdominal pain or bloating * Pain not relieved by pain medicine ordered * There is increased drainage or redness from any incision * A large amount of rectal bleeding greater than 2-3 tablespoons. (If you had a polyp/s removed or have hemorrhoids, a small amount of blood - from the rectum is to be expected.) * You have any unanswered questions or concerns. IN THE EVENT OF A SERIOUS EMERGENCY, GO TO THE NEAREST EMERGENCY ROOM Your discharge instructions were prepared by provider Anita Osei. Patient Instructions Signature Page Marycruz Cano Patient (or Guardian) Signature/Date: I have read and understand the instructions given to me by my caregivers. Caregiver/RN/Doctor Signature/Date: The above-named patient and/or guardian has received patient instructions on this date. + Original Patient Signature Page (only) stays with chart. Please make copy for patient.
--- NOTE | 2017-03-20 10:22 | GI REPORT ---
Procedure Date: 03/20/2017 9:44 AM Procedure: Upper GI endoscopy Indications: Dysphagia, Heartburn Medicines: See the Anesthesia note for documentation of the administered medications Complications: No immediate complications. Estimated Blood Loss: Estimated blood loss: none. Procedure: Pre-Anesthesia Assessment: - ASA Grade Assessment: III - A patient with severe systemic disease. After obtaining informed consent, the endoscope was passed under direct vision. Throughout the procedure, the patient's blood pressure, pulse, and oxygen saturations were monitored continuously. The scope was introduced through the mouth, and advanced to the second part of duodenum. The upper GI endoscopy was accomplished without difficulty. The patient tolerated the procedure well. Findings: The examined esophagus was normal. A guidewire was placed and the scope was withdrawn. Dilation was performed with a Savary dilator with no resistance at 16 mm and 18 mm. The stomach was normal. The examined duodenum was normal. Impression: - Normal esophagus. Dilated. - Normal stomach. - Normal examined duodenum. - No specimens collected. Recommendation: - Discharge patient to home. Follow up with referring. Consider checking celiac serologies. Anita Rossi M.D. Anita Rossi MD 03/20/2017 10:21:46 AM This report has been signed electronically. Note Initiated On: 03/20/2017 9:44 AM I attest to the content of the Intraoperative Record and orders documented therein, exceptions below
--- NOTE | 2017-03-20 10:40 | Anesthesiology Progress Note ---
Anesthesia Post Op Note Date & Time Mar 20, 2017 at 10:40 Vital Signs Pain Intensity: 0 Vital Signs Past 12 Hours Date Time Temp Pulse Resp B/P (MAP) Pulse Ox O2 Delivery O2 Flow Rate FiO2 03/20/17 10:30 65 22 148/89 (108) 95 Room Air 03/20/17 10:15 37 75 22 130/76 (94) 98 Room Air 03/20/17 09:09 37 72 22 179/88 (118) 96 Room Air Notes Mental Status: alert / awake / arousable, participated in evaluation Pt Amnestic to Procedure: Yes Nausea / Vomiting: adequately controlled Pain: adequately controlled Airway Patency, RR, SpO2: stable & adequate BP & HR: stable & adequate Hydration State: stable & adequate Anesthetic Complications: no major complications apparent
[2017-03-20 10:45] VITALS: BP 159/87; PULSE 60; O2SAT 95
== END | disposition home or self-care (01) ==
LOC: C.GI 08:36
PROVIDERS: ATTEND Internal Medicine Gastroenterology
DX: R13.10 Dysphagia, unspecified (principal); R12 Heartburn; J44.9 Chronic obstructive pulmonary disease, unspecified; I10 Essential (primary) hypertension; K21.9 Gastro-esophageal reflux disease without esophagitis; E11.9 Type 2 diabetes mellitus without complications; Z90.710 Acquired absence of both cervix and uterus; Z90.722 Acquired absence of ovaries, bilateral; Z90.79 Acquired absence of other genital organ(s); Z90.49 Acquired absence of other specified parts of digestive tract; Z96.652 Presence of left artificial knee joint; Z87.891 Personal history of nicotine dependence; Z79.82 Long term (current) use of aspirin

== ENCOUNTER 2019-01-13 06:26 | Observation (INO) ==
--- NOTE | 2019-01-07 12:08 | Anesthesiology Consultation ---
Date of Service January 07, 2019 Assessment & Plan (1) Encounter for pre-operative examination: - Patient is scheduled for ablation due to recurrent symptomatic SVT with frequent ER visits. Chart Review Chart Review: Acceptable Risk for Surgery and Patient NOT seen in Pre Admission Testing Consults Requested none Teaching & Discussion Pre-Anesthesia Teaching/Discussion Notes: Instructed NPO after midnight before surgery, except medications with 15 cc of water. Medication instructions provided according to the PAT guidelines. History Surgery Operation Date: 01/13/19 08:00 Proposed Procedures p EP Procedure with Anesthesia for SVT with Mapping - Cuca Allen DO Height/Weight Height: 5 ft 2.5 in Weight: 92.986 kg Allergies Allergy/AdvReac Type Severity Reaction Status Date / Time cefaclor Allergy Intermediate HIVES Verified 01/06/19 15:04 erythromycin base Allergy Intermediate HIVES Verified 01/06/19 15:04 hyoscyamine Allergy Intermediate HALLUCINATI Verified 01/06/19 15:04 ONS saccharin Allergy Intermediate WHEEZING Verified 01/06/19 15:04 sorbitol Allergy Intermediate STOMACH Verified 01/06/19 15:04 PAIN Sulfa (Sulfonamide Allergy Intermediate HIVES Verified 01/06/19 15:04 Antibiotics) sulfite Allergy Intermediate WHEEZING Verified 01/06/19 15:04 CAMMIE Inhibitors Allergy Mild COUGH Verified 01/06/19 15:04 etodolac AdvReac Intermediate STOMACH Verified 01/06/19 15:04 PAIN levofloxacin AdvReac Intermediate BRAIN FOG Verified 01/06/19 15:04 AND SPACEY Medications Home Medications Medication Instructions Recorded Confirmed Last Taken albuterol sulfate 2 puff INHALATION QID PRN 05/19/18 01/06/19 11/18/18 aspirin [Aspirin Low Dose] 81 mg PO DAILY 05/19/18 01/06/19 11/18/18 cholecalciferol (vitamin D3) 1,000 unit PO DAILY 05/19/18 01/06/19 11/18/18 [Vitamin D3] famotidine [Pepcid] 20 mg PO BID 05/19/18 01/06/19 11/18/18 levalbuterol HCl [Xopenex] 0.63 mg INHALATION QID PRN 05/19/18 01/06/19 11/18/18 losartan 100 mg PO DAILY 05/19/18 01/06/19 11/18/18 melatonin 5 mg PO HS PRN 05/19/18 01/06/19 11/18/18 metformin 500 mg PO DAILY 05/19/18 01/06/19 11/18/18 multivitamin 1 tab PO DAILY 05/19/18 01/06/19 11/18/18 fexofenadine 180 mg PO DAILY 11/18/18 01/06/19 Unknown fluoxetine [Prozac] 10 mg PO DAILY 11/18/18 01/06/19 Unknown fluticasone furoate-vilanterol 1 inh INHALATION DAILY 11/18/18 01/06/19 Unknown [Breo Ellipta] diltiazem HCl [Cardizem CD] 240 mg PO DAILY 12/25/18 01/06/19 Unknown fluticasone furoate [Arnuity 1 inh INHALATION DAILY 12/25/18 01/06/19 Unknown Ellipta] Past Medical History Medical History Diastolic dysfunction (Chronic) Asthma, moderate persistent (Chronic) Hypertension (Chronic) Hyperlipidemia (Chronic) DM type 2 (diabetes mellitus, type 2) (Chronic) Depression (Chronic) Carotid stenosis (Chronic) Osteoarthritis (Chronic) IBS (irritable bowel syndrome) (Chronic) Nocturnal hypoxia (Chronic) Obstructive sleep apnea on CPAP (Chronic) CPAP AND O2 AT 2L AT HS Chronic sinusitis (Chronic) Anxiety (Chronic) COPD, moderate (Chronic) GERD (gastroesophageal reflux disease) (Chronic) MGUS (monoclonal gammopathy of unknown significance) (Chronic) Degenerative disc disease Gout SVT (supraventricular tachycardia) Past Family History Family History Mother Pancreatic cancer Father Prostate cancer Brother Family history of diabetes mellitus Past Surgical History Surgical History H/O sinus surgery (Chronic) x2 - 05/09/11 - MAC #3, ETT #7.0 S/P total knee arthroplasty (Chronic) "left" S/P section (Chronic) X 2 History of cataract surgery (Chronic) RT/LEFT S/P cholecystectomy (Chronic) S/P tonsillectomy and adenoidectomy (Chronic) S/P carotid endarterectomy (Chronic) "left, 09/2015" History of hysterectomy (Chronic) H/O exploratory laparotomy History of colonoscopy History of dilatation and curettage History of esophagogastroduodenoscopy (EGD) History of tooth extraction Social History Smoking Status: Former smoker tobacco type: cigarettes Do You Dip or Chew Tobacco: No Smoking End Date: "A COUPLE YEARS AGO" Hx Alcohol Use: No Hx Substance Use: No Testing Laboratory Results Hilda 01/02/19 WBC: 10.71 H/H: 12.3/39.4 PLATELETS: 331 SODIUM: 143 POTASSIUM: 4.4 CHLORIDE: 104 CO2: 29 BUN: 21 H CREATININE: 0.7 GLUCOSE: 109 Electrocardiogram Date: 12/25/18 Supraventricular tachycardia @142 Low voltage QRS Minor nonspecific ST abnormality When compared with ECG of 11/18/18, ventricular rate has increased by 56bpm Supraventricular tachycardia now present. Chest X-Ray Date: 12/04/18 Findings: + NAD Echocardiogram Date: 05/20/18 EF: >70% The left ventricle is normal in size. There is mild concentric left ventricular hypertrophy. Left ventricular systolic function is normal. The left ventricular wall motion is normal. Aortic valve sclerosis mild, without significant aortic valvular stenosis. Other Testing CT angio chest PE protocol 11/18/18 FINDINGS: Furniture Inspector topogram: Cholecystectomy clips. Pulmonary vasculature:The study is suboptimal for the assessment of the pulmonary vascular tree secondary to respiratory motion artifact. Allowing for limited image quality, no central filling defect to suggest pulmonary embolus. Main pulmonary artery enlarged measuring 3.9 cm in diameter. No flattening of the interventricular septum. No intracardiac filling defect. No reflux of contrast into the hepatic veins. Remaining chest:Soft tissues: Normal thyroid and thoracic inlet. No axillary, supraclavicular, mediastinal, or hilar lymphadenopathy. Normal aorta. Aortic valve and mitral annular calcification. Normal heart size. No pericardial or pleural effusion. Upper abdomen normal. Lungs and airways: No pneumothorax. The appearance of the airways may suggest an expiratory phase of respiration resulting in narrowing of the bilateral mainstem bronchi. Intraluminal debris noted in subsegmental bronchi in the lower lobes. Respiratory motion artifact degrades evaluation of the lung parenchyma. Focal bandlike consolidation in the lung bases likely atelectasis or scarring. Mosaic attenuation may suggest small airways disease. Pulmonary arteries are mildly enlarged relative to adjacent bronchi. No interlobular septal thickening. Trace groundglass opacity in the posterior basal right lower lobe (series 4 image 117). Multiple pulmonary nodules detailed below: 1. Solid lobular 6 mm nodule at the right apex (series 4 image 195). 2. Solid peripheral 3 mm nodule in the superior segment of the right lower lobe (series 4 image 150). 3. Solid 6 mm nodule in the lateral basal right lower lobe (series 4 image 95). Musculoskeletal: Degenerative changes of the spine. IMPRESSION: 1. Allowing for suboptimal image quality, no evidence of pulmonary embolus. 2. 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 3. Multiple solid pulmonary nodules measuring up to 6 mm follow-up per Fleischner Society 2017 criteria below. 4. Debris within subsegmental lower lobe airways and lower lobe atelectasis or scarring may suggest mucous plugging or aspiration.
[~2019-01-13 06:26] MED LIST changes: -ACET500T57 PO; -ALBU18002 INH; -ALPR-411 PO; -ASPCH81X PO; -CHOL100010 PO; -ESTR0.02 TD; -FAMO20TA11 PO; -FLUO10CA48 PO; -FLUT1INH7 INH; -GLC/500 PO; -LEVA45AE INH; -LEVO-371 PO; -LIDOCAINE HCL 2% 2 ML VIAL (20MG/ML) ONE; -LOSA50TA6 PO; +LR 15ML/HR IV SCH; -MULT-506 PO; -PROPOFOL IV EMULSION 10 MG/ML 20 ML VIAL IV ONE; -SODIUM CHLORIDE 0.9% 500ML 500 ML IV ONE; +VANCOMYCIN HCL 1,000 MG in SODIUM CHLORIDE 0.9% 250 ML IV SCH
[2019-01-13] MEDS ORDERED: PROPOFOL IV EMULSION 10 MG/ML 100 ML VIAL IV ONE (06:53)
[2019-01-13] MEDS ORDERED: DexMEDEtomidine HCL IV 100 MCG/ML VIAL ONE (06:54)
[2019-01-13] MEDS ORDERED: MIDAZOLAM HCL 1 MG/ML 2ML VIAL ONE ×2 (06:57→08:09)
--- NOTE | 2019-01-13 07:46 | History & Physical Report ---
Date of Service January 13, 2019 Assessment & Plan (1) SVT (supraventricular tachycardia): History of Present Illness Chief Complaint: pt continues to have palpitations; last in ED a few weeks ago requiring adenosine Primary Care Provider: Andrae Hays MD +Palpittaions due to SVT with frequent ED visits requiring adenosine Allergies Allergy/AdvReac Type Severity Reaction Status Date / Time cefaclor Allergy Intermediate HIVES Verified 01/06/19 15:04 erythromycin base Allergy Intermediate HIVES Verified 01/06/19 15:04 hyoscyamine Allergy Intermediate HALLUCINATI Verified 01/06/19 15:04 ONS saccharin Allergy Intermediate WHEEZING Verified 01/06/19 15:04 sorbitol Allergy Intermediate STOMACH Verified 01/06/19 15:04 PAIN Sulfa (Sulfonamide Allergy Intermediate HIVES Verified 01/06/19 15:04 Antibiotics) sulfite Allergy Intermediate WHEEZING Verified 01/06/19 15:04 CAMMIE Inhibitors Allergy Mild COUGH Verified 01/06/19 15:04 etodolac AdvReac Intermediate STOMACH Verified 01/06/19 15:04 PAIN levofloxacin AdvReac Intermediate BRAIN FOG Verified 01/06/19 15:04 AND SPACEY Home Medications Home Medications Medication Instructions Recorded Confirmed Type albuterol sulfate 2 puff INHALATION QID PRN 05/19/18 01/06/19 History aspirin [Aspirin Low Dose] 81 mg PO DAILY 05/19/18 01/06/19 History cholecalciferol (vitamin D3) 1,000 unit PO DAILY 05/19/18 01/06/19 History [Vitamin D3] famotidine [Pepcid] 20 mg PO BID 05/19/18 01/06/19 History levalbuterol HCl [Xopenex] 0.63 mg INHALATION QID PRN 05/19/18 01/06/19 History losartan 100 mg PO DAILY 05/19/18 01/06/19 History melatonin 5 mg PO HS PRN 05/19/18 01/06/19 History metformin 500 mg PO DAILY 05/19/18 01/06/19 History multivitamin 1 tab PO DAILY 05/19/18 01/06/19 History fexofenadine 180 mg PO DAILY 11/18/18 01/06/19 History fluoxetine [Prozac] 10 mg PO DAILY 11/18/18 01/06/19 History fluticasone furoate-vilanterol 1 inh INHALATION DAILY 11/18/18 01/06/19 History [Breo Ellipta] diltiazem HCl [Cardizem CD] 240 mg PO DAILY 12/25/18 01/06/19 History fluticasone furoate [Arnuity 1 inh INHALATION DAILY 12/25/18 01/06/19 History Ellipta] Past Med/Surg History Medical History Diastolic dysfunction (Chronic) Asthma, moderate persistent (Chronic) Hypertension (Chronic) Hyperlipidemia (Chronic) DM type 2 (diabetes mellitus, type 2) (Chronic) Depression (Chronic) Carotid stenosis (Chronic) Osteoarthritis (Chronic) IBS (irritable bowel syndrome) (Chronic) Nocturnal hypoxia (Chronic) Obstructive sleep apnea on CPAP (Chronic) CPAP AND O2 AT 2L AT HS Chronic sinusitis (Chronic) Anxiety (Chronic) COPD, moderate (Chronic) GERD (gastroesophageal reflux disease) (Chronic) MGUS (monoclonal gammopathy of unknown significance) (Chronic) Degenerative disc disease Gout SVT (supraventricular tachycardia) Surgical History H/O sinus surgery (Chronic) x2 - 05/09/11 - MAC #3, ETT #7.0 S/P total knee arthroplasty (Chronic) "left" S/P section (Chronic) X 2 History of cataract surgery (Chronic) RT/LEFT S/P cholecystectomy (Chronic) S/P tonsillectomy and adenoidectomy (Chronic) S/P carotid endarterectomy (Chronic) "left, 09/2015" History of hysterectomy (Chronic) H/O exploratory laparotomy History of colonoscopy History of dilatation and curettage History of esophagogastroduodenoscopy (EGD) History of tooth extraction Family History Mother Pancreatic cancer Father Prostate cancer Brother Family history of diabetes mellitus Social History Preferred Language: Chinese Communication Ability: Effective Visual Impairment: No Limitations Hearing Ability: Normal Manual Training Teacher Required: No Beliefs That Will Affect Care: None marital status: Current Living Situation: Alone current occupational status: retired Other Information That Helps Us Care for You: No Feels Safe at Home: Yes Safety Concerns: Feels Safe At This Time Smoking Status: Former smoker Tobacco Type: cigarettes Do You Dip or Chew Tobacco: No Smoking End Date: "A COUPLE YEARS AGO" Second Hand Exposure: No Tobacco Cessation Education Requested by Patient: No Hx Alcohol Use: No Hx Substance Use: No Review of Systems All systems reviewed & are unremarkable except as noted in HPI & below Physical Exam Physical Exam: aaox3, NAD NC/AT, EOMI Supple No JVD Nrl S1/S2, No murmur CTA b/l no w/r/r soft nt/nd no LE edema b/l skin intact no focal deficits Results & Data Vital Signs (Past 12 Hours) Vital Signs Temp Resp BP Pulse Ox 01/13/19 07:21 36.6 C 16 152/73 H 92
[2019-01-13] MEDS ORDERED: ALBUTEROL HFA INHALER 8.5 GM ONE (08:08)
[2019-01-13] MEDS ORDERED: GLYCOPYRROLATE 0.2 MG/ML VIAL ONE (08:27)
[2019-01-13] MEDS ORDERED: PHENYLEPHRINE 100MCG/ML 5ML SYR ONE ×2 (08:36→09:45)
[2019-01-13] MEDS ORDERED: KETAMINE HCL INJ 50 MG/ML 10 ML VIAL ONE (08:48)
[2019-01-13] MEDS ORDERED: ISOPROTERENOL HCL 0.2 MG/ML 5 ML AMP IV ONE (09:03)
[2019-01-13] MEDS ORDERED: ePHEDrine sulfate 50 MG/ML SYR ONE (09:13)
[2019-01-13] MEDS ORDERED: METOPROLOL TARTRATE 1 MG/ML VIAL IV ONE (10:13)
--- NOTE | 2019-01-13 11:41 | Operative Report ---
Post Operative Report Pre & Post Diagnosis Pre: SVT Post: AVNRT Operation Date: 01/13/19 08:00 <No data on this case meets the specified criteria> Procedure Operation Date: 01/13/19 08:00 Actual Procedures p EPS + Ablation for SVT Flutter - DO aliza Blackwood Drug Stimulation - DO aliza Blackwood 3D Mapping (Carto) - Cuca Allen DO Surgeon Cuca Allen, Boiler Plant Worker none Estimated Blood Loss 5 Findings Consistent with Post-Op Diagnosis Specimens none Description of Procedure see official report I attest to the content of the Intraoperative Record and any orders documented therein. Any exceptions are noted below.
[2019-01-13] MEDS ORDERED: ALBUTEROL HFA 8 GM INHALER INH PRN (11:44)
[2019-01-13] MEDS ORDERED: LEVALBUTEROL HCL 0.63 MG/3 ML NEB INH PRN (11:44)
[2019-01-13] MEDS ORDERED: NON-FORMULARY MEDICATION (Melatonin 5 MG) PO PRN (11:44)
[2019-01-13] MEDS ORDERED: LIDOCAINE HCL 2% 2 ML VIAL/AMP(20MG/ML) INFIL ONE (11:47)
--- NOTE | 2019-01-13 11:49 | Discharge Summary ---
Date of Service January 13, 2019 Admission HPI Per Admitting Provider +Palpations due to SVT with frequent ED visits requiring adenosine Admission Exam Per Admitting Provider aaox3, NAD NC/AT, EOMI Supple No JVD Nrl S1/S2, No murmur CTA b/l no w/r/r soft nt/nd no LE edema b/l skin intact no focal deficits Principal Diagnosis AVNRT s/p slow pathway modification Discharge Exam aaox3, NAD NC/AT, EOMI Supple No JVD Nrl S1/S2, No murmur CTA b/l no w/r/r soft nt/nd no LE edema b/l skin intact no focal deficits b/l groins soft and no hematoma Discharge Data Allergies Allergy/AdvReac Type Severity Reaction Status Date / Time cefaclor Allergy Intermediate HIVES Verified 01/06/19 15:04 erythromycin base Allergy Intermediate HIVES Verified 01/06/19 15:04 hyoscyamine Allergy Intermediate HALLUCINATI Verified 01/06/19 15:04 ONS saccharin Allergy Intermediate WHEEZING Verified 01/06/19 15:04 sorbitol Allergy Intermediate STOMACH Verified 01/06/19 15:04 PAIN Sulfa (Sulfonamide Allergy Intermediate HIVES Verified 01/06/19 15:04 Antibiotics) sulfite Allergy Intermediate WHEEZING Verified 01/06/19 15:04 CAMMIE Inhibitors Allergy Mild COUGH Verified 01/06/19 15:04 etodolac AdvReac Intermediate STOMACH Verified 01/06/19 15:04 PAIN levofloxacin AdvReac Intermediate BRAIN FOG Verified 01/06/19 15:04 AND SPACEY Procedures Performed Operation Date: 01/13/19 08:00 Actual Procedures p EPS + Ablation for SVT Flutter - DO aliza Blackwood Drug Stimulation - DO aliza Blackwood 3D Mapping (Carto) - Cuca Allen DO Ordered Studies ECG: SR Hospital Course (1) SVT (supraventricular tachycardia): Pt admitted for elective EPS with possible ablation. 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 Her cardizem was lowered to 120mg daily and she was monitored overnight and discharged home. Total Time Total Time Spent Total Time Spent (In Minutes): 30 Total Time Includes: Examination of the Patient, Discharge Planning, Medication Reconciliation and Other Discharge Plan Discharge Items Patient Disposition: Home - Self-Care Reason For Visit: S/P SVT ABLATION Discharge Diagnosis: AVNRT s/p Ablation Condition: Good Discharge Goals: Improve function Lifting: No more than 10 pounds Lifting Comment: no heavy lifting or squating for 1 week Bathing: No limitations Non-emergency contact: Hat Forming Machine Operator Call non-emergency contact if: you have any medication questions Follow-up/Referrals: Andrae Hays MD [Primary Care Provider] - Diet: Heart Healthy Addtl Provider Instructions: f/u with Dr. Allen as scheduled in 1 month ACTIVITY RECOMMENDATIONS: * You may shower/bathe in 1 day. MEDICATIONS: * Tylenol, as directed, for discomfort. SPECIAL CARE INSTRUCTIONS: * If bleeding occurs, apply direct pressure to area for 5 minutes. * Call your doctor if you have severe pain, fever, drainage or bleeding at site. * Keep dressing on and dry for 48 hours then remove. * Keep any scheduled doctor's appointment. SKIN IRRITATION: * You may experience some redness and/or swelling in the area where radiation was administered. If any skin irritation occurs, please contact your family physician. FOLLOW UP VISIT: Keep any scheduled doctor appointments. Prescriptions: Continued metformin 500 mg tablet 500 mg PO DAILY RF: 0 aspirin [Aspirin Low Dose] 81 mg Tablet,Delayed Release (Dr/Ec) 81 mg PO DAILY RF: 0 famotidine [Pepcid] 20 mg Tablet 20 mg PO BID RF: 0 albuterol sulfate 90 mcg/actuation Hfa Aerosol Inhaler 2 puff INHALATION QID PRN (Reason: Wheezing) RF: 0 losartan 100 mg Tablet 100 mg PO DAILY RF: 0 cholecalciferol (vitamin D3) [Vitamin D3] 1,000 unit Capsule 1,000 unit PO DAILY RF: 0 multivitamin Tablet 1 tab PO DAILY RF: 0 levalbuterol HCl [Xopenex] 0.63 mg/3 mL Solution For Nebulization 0.63 mg INHALATION QID PRN (Reason: Shortness Of Breath) RF: 0 melatonin 5 mg Tablet 5 mg PO HS PRN (Reason: Insomnia) RF: 0 fexofenadine 180 mg Tablet 180 mg PO DAILY RF: 0 fluoxetine [Prozac] 10 mg Capsule 10 mg PO DAILY RF: 0 Breo Ellipta 200-25 mcg/dose blister with device 1 inh inhalation DAILY RF: 0 Arnuity Ellipta 100 mcg/actuation blister with device 1 inh inhalation DAILY RF: 0 Changed diltiazem HCl [Cardizem CD] 120 mg capsule,extended release 24hr 120 mg PO DAILY Qty: 0 RF: 0 Stand-Alone Forms: [facility] Discharge Orders: Discharge Order (Routine); Ordered 01/14/19 Ordered By: Pieter Olmstead Admission Data Admit Date/Time: 01/13/19 10:33 Attending Provider: Cuca Allen Admit Provider: Cuca Allen Primary Care Provider: Andrae Hays Service: Telemetry Other Interventions: Discharge Summary Assessment (RN) Last Done: 01/14/19 14:10 Pending Studies at Discharge: No DC Date/Time DO NOT enter until pt leaves facility: 01/14/19 15:04
--- NOTE | 2019-01-13 11:58 | Anesthesiology Progress Note ---
Date of Service January 13, 2019 Anesthesia Post Procedure Vital Signs Vital Signs: Temp Resp BP Pulse Ox 01/13/19 07:21 36.6 C 16 152/73 H 92 Transfer of Care Handoff Completed per policy Notes Mental Status: alert / awake / arousable Patient Amnestic to Procedure: Yes Nausea / Vomiting: adequately controlled Pain: adequately controlled Airway Patency, RR, SpO2: stable & adequate BP & HR: stable & adequate Hydration State: stable & adequate Anesthetic Complications: no major complications apparent
[2019-01-13] MEDS: ACETAMINOPHEN 325 MG TAB PO PRN ×2 (15:53→21:09)
[2019-01-13] MEDS: FAMOTIDINE 20 MG TAB PO SCH (19:39)
--- NOTE | 2019-01-14 01:07 | Operative Report ---
DATE OF OPERATION: 01/13/2019 PREOPERATIVE DIAGNOSIS: Supraventricular tachycardia. 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 SURGEON: Cuca Allen DO. CONGREGATIONAL CARE PASTOR: None. ANESTHESIA: Monitored anesthetic care administered via anesthesiology. Please refer to their notes for complete details where the start time was 7:55, end time 11:35. Total of 4 mg of Versed, 25 mcg of ketamine, 1170 mg of propofol, 10 mg of ephedrine, 200 mcg of phenylephrine, 120 mg of albuterol, 2.5 mg of metoprolol and Precedex was given as well. INTRAVENOUS FLUIDS: 900 mL. URINE OUTPUT: Not applicable. SPECIMENS: None. FINDINGS: See below. DRAINS: None. BLOOD LOSS: 5 mL. INDICATIONS: A 73-year-old female with a past medical history for SVT diagnosed in April 2018. She has had multiple ED visits for requiring adenosine and the most recent was a couple weeks ago. She is on moderate dose of Cardizem 240 daily, and still have an SVT. OTHER PAST MEDICAL HISTORY: Hypertension, hyperlipidemia, chronic diastolic heart failure [place] [employer] class 3, statin intolerance, coronary artery stenosis status post left coronary artery enterectomy, diabetes, COPD, and moderate persistent asthma, history of tobacco use, depression and anxiety, MGUS, irritable bowel syndrome, osteoporosis, history of total knee replacement and restless leg syndrome. Due to the SVT that so recurrent and bothersome, she was recommended electrophysiology study with possible ablation. CONSENT: Consent was obtained prior to the patient going to electrophysiology lab. The patient was informed of risks, benefits, alternatives to the procedure. The risks include but not limited to sudden cardiac , cardiac arrhythmias, cerebrovascular accident, myocardial infarction, injury to the blood vessels, chamber of the heart or the [place] electrical system where she would need a permanent pacemaker, bleeding and infection. The patient understood these risks and agreed to the procedure as planned. Informed consent was obtained. DESCRIPTION OF THE PROCEDURE: The patient was brought into the electrophysiology lab in a fasting state. She was connected to continuous curriculum designer. A timeout was performed to ensure patient's identity and procedure correctly. The patient was prepped and draped over bilateral groins in normal surgical standard fashion. Monitored anesthetic care was given via anesthesiology for patient's comfort level during the entire case. [place] precautions maintained throughout the procedure. A 10 mL of 1% lidocaine were given in the bilateral groins for local anesthesia. Using the modified Seldinger technique, venous access was obtained in the following manner. Left femoral vein had a 6-Algerian sheath followed by a quadripolar catheter positioned in the right ventricular apex. A 7-Algerian sheath followed by a Biosense catheter positioned over the His bundle and a 7-Algerian sheath followed by a Decapolar FJ curved coronary sinus catheter positioned at the coronary sinus, I ultimately ended up using an FJ. The right femoral vein had a 6-Algerian sheath followed by a Decapolar catheter positioned in the high right atrium/also in the right atrial appendage and a 6-Algerian sheath that was eventually swapped out for an SRO and the 4 mm DF curve ablation catheter. With catheters in place, an electrophysiology study was performed with the following findings: Sinus cycle length 828 milliseconds, MS 190 milliseconds, QRS 72 milliseconds, QT 376 milliseconds, AH 108 milliseconds, HV 40 milliseconds, AV Wenckebach 380 milliseconds, AV node was less than or equal to the atrial, atrial ERP was 600/290, 400/290. Right ventricular ERP was 600/240 and 400/220. Giving up to doubles from the high right atrium and the coronary sinus, I was not able to induce any SVT, so we light into her up and started isuprel at 2. Once I had an appropriate isuprel effect, I had a sinus cycle length of 490 milliseconds, AH 130 milliseconds, HV 46 milliseconds. I did induce an SVT at 330/220. The right atrium catheter was positioned pretty high up near the SVC, some VA time was actually negative 48 with this tachycardia and there was concentric retrograde A and there was a VAV response. However, of note it did break a few times on its own. It was not that persistent as I thought it would be. We then set up to do an AV slow pathway modification. With the 6-Algerian sheath was swapped out of the right femoral vein for an SRO sheath, the ablation catheter was then advanced into the heart and we did 3D mapping of the His bundle region as well as the coronary sinus os. Then, the ablation catheter was positioned in the low right atrial septum and we gave a series of radiofrequency carbajal at 35 loaiza. There was one point where I did get a few junctionals, but I came off pretty quickly because there once in a while I did loose the P for V, so then I pulled back to see if we may be more successful just a little bit of junctionals that we got. Post-ablation #1 electrophysiology study is as following: Sinus cycle length 884 milliseconds, MS 204 milliseconds, QRS 70 milliseconds, QT 360 milliseconds, AH 132 milliseconds, HV 48 milliseconds, AV Wenckebach 390 milliseconds, AV node ERP 600/300, 450/290. Atrial ERP was 600/220 and 450/210. The right ventricular ERP was 600/240 and 400/200. I did thus induced tachycardia on 2 of isuprel again at 330/220. The tachycardia cycle length was 308 and the VA time was 26 with the high right atrium being in the right atrial appendage. So it did not last but it broke on its own, was very short lived, but we did set up back to do another series of radiofrequency carbajal in that one area where I got a few junctionals, so we gave more 35 loaiza in this region. Again, I had some junctionals a few beats here and there and some of them did miss a P-wave, so I then eventually when I felt satisfied and did not want to do any further because we were concerned about possibly causing complete heart block. I pulled back the ablation catheter and I just did a electrophysiology study but not try to induce on isuprel again. The MS interval was 134 milliseconds, QRS 70 milliseconds, QT 422 milliseconds, AH was 160 milliseconds, HV 42 milliseconds, AV Wenckebach was 390 milliseconds, AV node ERP was 600/260. The right atrial ERP was 600/200. The right ventricular ERP was 600/230. Again, I did not try to induce further because I did not feel comfortable going back to burn anymore. I want to see how she does clinically. All the catheters removed from the body and then the sheaths were pulled with manual compression used to establish hemostasis. IMPRESSION: 1. 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 2. Dual AV carleen pathway. PLAN: Monitor patient overnight, 12-lead ECG. She is not allowed to do any heavy lifting or squatting for 1 week's time. We will reduce her diltiazem from 240 to 120 daily and I will see her in the office in 1 month's time and we will see how she does clinically. I attest to the content of the Intraoperative Record and any orders documented therein. Any exceptions are noted below. MTDD
[2019-01-14] MEDS: ACETAMINOPHEN 325 MG TAB PO PRN ×2 (03:27→13:35)
--- NOTE | 2019-01-14 07:54 | Anesthesiology Progress Note ---
Date of Service January 14, 2019 Anesthesia Post Procedure Vital Signs Vital Signs: Temp Pulse Pulse Resp BP BP Pulse Ox 01/14/19 07:50 36.8 C 68 18 163/68 H 93 01/13/19 21:00 79 20 122/60 92 01/13/19 19:00 36.5 C 66 18 111/63 94 01/13/19 16:00 36.5 C 62 19 121/60 97 01/13/19 15:30 74 14 93/70 L 97 01/13/19 15:00 58 L 16 118/62 98 01/13/19 14:30 68 23 109/51 L 98 01/13/19 14:00 62 20 107/57 L 98 01/13/19 13:30 64 18 107/63 95 01/13/19 13:15 66 24 98/58 L 97 01/13/19 13:00 65 21 105/58 L 96 01/13/19 12:45 68 20 105/63 96 01/13/19 12:30 70 20 95/54 L 94 01/13/19 12:15 36.7 C 74 98/56 L Notes Mental Status: alert / awake / arousable and participated in evaluation Patient Amnestic to Procedure: Yes Nausea / Vomiting: adequately controlled Pain: adequately controlled Airway Patency, RR, SpO2: stable & adequate BP & HR: stable & adequate Hydration State: stable & adequate Anesthetic Complications: no major complications apparent and Pt Satisfied with anesthetic care
[2019-01-14] MEDS ORDERED: FLUOXETINE HCL 10 MG CAP PO SCH (09:00)
[2019-01-14] MEDS ORDERED: METFORMIN HCL 500 MG TAB PO SCH (09:00)
[2019-01-14] MEDS ORDERED: MULTIVITAMIN TAB PO SCH (09:00)
[2019-01-14] MEDS ORDERED: dilTIAZem HCL 120 MG CAPCR PO SCH (09:00)
[2019-01-14] MEDS ORDERED: CHOLECALCIFEROL 1,000 UNITS TAB PO SCH (09:00)
[2019-01-14] MEDS ORDERED: LOSARTAN POTASSIUM 50 MG TAB PO SCH (09:00)
[2019-01-14] MEDS ORDERED: ASPIRIN 81 MG ECTAB PO SCH (09:00)
[2019-01-14] MEDS ORDERED: NON-FORMULARY MEDICATION (Fluticasone Furoate-Vilanterol [Breo Ellipta] 1 PUFFS) INH SCH (09:00)
[2019-01-14] MEDS ORDERED: FEXOFENADINE HCL 180 MG TAB PO SCH (09:00)
[2019-01-14] MEDS: FAMOTIDINE 20 MG TAB PO SCH (09:42)
--- NOTE | 2019-01-14 13:59 | Cardiology Progress Note ---
Date of Service January 14, 2019 Assessment & Plan (1) SVT (supraventricular tachycardia): Marycruz Cano is seen in coverage of Dr Allen of EP. I have seen her from a general cardiology perspective in the past. Patient presented for outpatient electrophysiology study due to recurrent sympt omatic supraventricular tachycardia despite high-dose Diltiazem therapy. She is seen in room 106 as a telemetry overflow patient. EP study results: 1. 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 2. Dual AV carleen pathway. -Patient is stable for discharge. Her prior to hospital dose of diltiazem CD240 mg daily has been reduced to 120 mg daily. She should keep her previously planned outpatient follow-up. Subjective Chief complaint: Post procedure follow-up, elective physiology study, radio f requency ablation Subjective: Patient feels well. She recovered well from the procedure yesterday, and denies any chest discomfort or palpitations. She denies any discomfort at her bilateral femoral vein access sites. Telemetry reveals stable sinus rhythm in the range of 60 to 80 bpm without any recurrence of supraventricular tachycardia. Review of Systems Review of Systems: All systems reviewed & are unremarkable except as noted in HPI & below Physical Exam Physical Exam: Intake and Output 01/13/19 01/14/19 01/14/19 22:59 06:59 14:59 Intake Total 360 / 360 325 / 325 Balance 360 / 360 325 / 325 Intake: Oral 360 / 360 325 / 325 Other: # Unmeasured Voi ds 3 3 3 Weight 97 kg TempPulse Resp BP Pulse Ox 36.4 C L 78 22 163/91 H 91 01/14/19 11:46 01/14/19 11:46 01/14/19 11:46 01/14/19 11:46 01/14/19 11:46 Constitutional: WD/WN, vitals as above Respiratory: normal respiratory effort, lungs clear to auscultation Cardiovascular: RRR, no murmur, no edema Bilateral femoral vein access sites are clean dry and intact without evidence of ecchymosis or hematoma. Gastrointestinal (Abdomen): normal bowel sounds, soft, nontender, no hepatosplenomegaly Skin: no rashes, warm and dry Neurologic: PERRL, EOMI, accommodation nl, no face palsy, no dysarthria Results & Data Vital Signs (Past 12 Hours) Vital Signs Temp Pulse Pulse Resp BP BP Pulse Ox 01/14/19 11:46 36.4 C L 78 22 163/91 H 91 01/14/19 09:52 73 22 160/72 H 93 01/14/19 08:00 74 16 148/72 H 91 01/14/19 07:50 36.8 C 68 18 163/68 H 93 Diagnostic Findings EKG performed 01/13/2019 at 12:50 PM revealed sinus rhythm at 68 bpm with first- degree AV block and normal repolarization. Stable EKG findings.
== END 2019-01-14 15:04 | disposition home or self-care (01) ==
LOC: 1E 06:26 → EP 06:26

== ENCOUNTER 2021-10-12 04:04 | Observation (INO) ==
[2021-10-12] MEDS ORDERED: ADENOSINE IV SOLN 3 MG/ML 2 ML VIAL IV STA (04:38)
--- NOTE | 2021-10-12 05:09 | Emergency Department Note ---
Impression & Plan SVT (supraventricular tachycardia) Admit to the [facility] ED Provider Note NAME: BRITTANEY RIVAS AGE: 76 SEX: F ARRIVES VIA: Ambulance INFORMANT: Patient ED PROVIDER(S): Janis Escalera DO CHIEF COMPLAINT: SVT PLAN: Disposition: Admit to the [facility] Condition: Stable MEDICAL DECISION MAKING: This is a 76-year-old female patient with a history of SVT who presents to the emergency department with recurrence of this dysrhythmia. The patient was given 6 mg of IV adenosine which converted the patient into a normal sinus rhythm. The patient admits that she had missed her morning dose of verapamil. This most likely led to the episodes of dysrhythmia. Patient will stay here in the hospital with the [facility] service. She will receive her morning dose of oral verapamil monitored. Please see laboratory studies from her ER vis it earlier this evening. Triage Nursing notes reviewed and agree with them. Prior medical records reviewed Vital Signs: reviewed and remarkable for tachycardia Differential diagnosis: Cardiac dysrhythmia, cardiac ischemia, anxiety ER treatment provided: IV adenosine Diagnostics interpreted by me: ECG: SVT at [address] segment elevation or signs of ischemia. QTC of 445 Cardiac Monitoring: SVT at 138 Repeat EKG: Normal sinus rhythm at a rate of 87 with a first-degree AV block. There is no ST segment elevation or signs of ischemia. There is no ectopy. Laboratory studies: See below HPI: 76/F arrives for evaluation of SVT. She describes feeling "punky" for the past 3 days. She had an episode of SVT earlier this evening which brought her to the emergency department last night. She was evaluated and received IV adenosine at that time. She converted. Laboratory studies were unremarkable at that time. She was discharged home. Upon arriving at home, approximately 45 minutes later, she went back into an SVT and called EMS. She does admit to being under significant increased stress over the past couple of days. Also, she realized that she did miss her morning dose of verapamil which could have contributed to the situation. ROS: See above HPI for pertinent positives & negatives. A total of 10 systems reviewed and were otherwise negative. PAST MEDICAL HISTORY:See Below PAST SURGICAL HISTORY:See Below FAMILY HISTORY:See Below SOCIAL HISTORY:See Below HOME MEDICATIONS:See list ALLERGIES:See list VITALS:See Below PHYSICAL EXAMINATION: HEENT: Head - normocephalic and atraumatic Pupils are equal, round, and reactive to light. Extraocular eye muscles are intact, and sclera are a nicteric. Nose - moist nasal mucosa without discharge. Mouth - moist buccal mucosa. Oropharynx is nonerythematous and there is no tonsillar exudate or edema noted. Neck: Supple; JVD or cervical lymphadenopathy Heart: Sounds are distant; irregularly irregular rhythm with a rapid rate there is a normal S1 and S2 with no murmurs, clicks, or gallops appreciated. Lungs: Clear to auscultation bilaterally although lung sounds are diminished at both bases Abdomen: Soft, completely nontender, nondistended, with good bowel sounds. There are no palpable pulsatile masses or hepatosplenomegaly. There is no guarding, rigidity, or rebound noted. Extremities: No evidence of cyanosis, clubbing, or edema. There are easily palpable peripheral pulses. Skin: warm and diaphoretic with good turgor and no rashes. ED COURSE: Times/Reassessments: 0420: The patient was evaluated in room A 2. I reviewed records from earlier this evening from her emergency department visit. An order was placed for continuous cardiac monitoring. A twelve-lead EKG was performed the patient was in SVT at a rate of 138. An IV lock was initiated with some difficulty. The patient was given IV adenosine which converted her into a normal sinus rhythm and a twelve-lead EKG was repeated. Covid testing was performed. [facility] I have personally spent greater than 30 minutes of critical care time in the direct management of this patient. This includes bedside care, interpretation of diagnostic studies, and testing, discussion with consultants, patient, and family members, and other required patient management activities. This 30 minutes is in excess of all separately billable procedures. Janis Escalera DO Past Med/Surg History Medical History Anxiety Asthma, moderate persistent Carotid stenosis Chronic sinusitis COPD, moderate Degenerative disc disease Depression Diastolic dysfunction Diverticulitis DM type 2 (diabetes mellitus, type 2) GERD (gastroesophageal reflux disease) Gout History of anesthesia reaction pulse ox drops with any anesthesia Hyperlipidemia Hypertension IBS (irritable bowel syndrome) MGUS (monoclonal gammopathy of unknown significance) Nocturnal hypoxia Obstructive sleep apnea on CPAP CPAP AND O2 AT 3L AT HS Osteoarthritis SVT (supraventricular tachycardia) Surgical History H/O exploratory laparotomy H/O sinus surgery x2 - 05/09/11 - MAC #3, ETT #7.0 History of arthroscopy of left knee History of cardiac radiofrequency ablation (RFA) [facility] 12/2018 History of cataract surgery RT/LEFT History of colonoscopy History of dilatation and curettage History of esophagogastroduodenoscopy (EGD) History of hysterectomy History of tooth extraction S/P carotid endarterectomy "left, 09/2015" S/P section X 2 S/P cholecystectomy S/P tonsillectomy and adenoidectomy S/P total knee arthroplasty "left" Family History Mother Pancreatic cancer Father Prostate cancer Brother Family history of diabetes mellitus Other No family history of adverse response to anesthesia Social History Smoking Status: Former smoker Tobacco Type: Cigarettes Second Hand Exposure: No; Do You Dip or Chew Tobacco: No; Tobacco Cessation Education Requested by Patient: No Hx Alcohol Use: No Hx Substance Use: No Preferred Language: Mozambican Communication Ability: Effective Visual Impairment: No Limitations Hearing Ability: Normal Sap Bobj Developer Required: No Beliefs That Will Affect Care: None marital status: Current Living Situation: Alone current occupational status: retired Other Information That Helps Us Care for You: No Feels Safe at Home: Yes Safety Concerns: Feels Safe At This Time Assistive Devices: Cane Allergies Allergies Allergy/AdvReac Type Severity Reaction Status Date / Time cefaclor Allergy Intermediate HIVES Verified 10/12/21 07:19 erythromycin base Allergy Intermediate HIVES Verified 10/12/21 07:19 hyoscyamine Allergy Intermediate HALLUCINATI Verified 10/12/21 07:19 ONS saccharin Allergy Intermediate WHEEZING Verified 10/12/21 07:19 sorbitol Allergy Intermediate STOMACH Verified 10/12/21 07:19 PAIN Sulfa (Sulfonamide Allergy Intermediate HIVES Verified 10/12/21 07:19 Antibiotics) sulfite Allergy Intermediate WHEEZING Verified 10/12/21 07:19 CAMMIE Inhibitors Allergy Mild COUGH Verified 10/12/21 07:19 etodolac AdvReac Intermediate STOMACH Verified 10/12/21 07:19 PAIN levofloxacin AdvReac Intermediate BRAIN FOG Verified 10/12/21 07:19 AND SPACEY Home Meds Home Medications Medication Instructions Recorded Confirmed aspirin 81 mg tablet,delayed 81 mg PO QAM 05/19/18 10/12/21 release (Aspirin Low Dose) cholecalciferol (vitamin D3) 25 1,000 unit PO QAM 05/19/18 10/12/21 mcg (1,000 unit) capsule (Vitamin D3) famotidine 20 mg tablet (Pepcid) 20 mg PO BID 05/19/18 10/12/21 losartan 100 mg tablet 100 mg PO QAM 05/19/18 10/12/21 metformin 500 mg tablet 500 mg PO QAM 05/19/18 10/12/21 multivitamin 1 tab PO QAM 05/19/18 10/12/21 fluoxetine 10 mg capsule (Prozac) 10 mg PO QAM 11/18/18 10/12/21 fluticasone furoate 200 1 inh INHALATION QAM 11/18/18 10/12/21 mcg-vilanterol 25 mcg/dose inhalation powder (Breo Ellipta) melatonin 1 mg tablet,extended 1 mg PO HS 09/11/19 10/12/21 release albuterol sulfate 90 mcg/actuation 2 puff INHALATION Q4H PRN 09/18/19 10/12/21 aerosol inhaler (ProAir HFA) simethicone 125 mg capsule 125 mg PO BID PRN 03/13/20 10/12/21 verapamil 240 mg tablet,extended 240 mg PO QAM 07/05/20 10/12/21 release fexofenadine 180 mg tablet 180 mg PO HS 11/28/20 10/12/21 levalbuterol HCl 0.63 mg/3 mL 0.63 mg INHALATION DIRECTED PRN 11/28/20 10/12/21 solution for nebulization (Xopenex) spironolactone 25 mg tablet 25 mg PO QAM 10/12/21 10/12/21 Previous Rx's Medication Instructions Recorded amoxicillin 875 mg-potassium 1 tab PO BID #14 tab 10/11/21 clavulanate 125 mg tablet Results & Data (ED) Vital Signs Vital Signs - 24 hr 10/12/21 04:43 Pulse Rate 135 H Respiratory Rate 24 Respiratory Effort / Characteristics Pursed Lip Short of Breath SOB on Exertion Respiratory Depth Shallow Blood Pressure 109/77 Blood Pressure Mean 87 Blood Pressure Position Semi-fowlers Pulse Oximetry 95 Oxygen Delivery Method Room Air Sepsis Recent Fever Within 48 Hours No Sepsis New/Unexplained Change in Mental Status No Sepsis Action Taken by Nursing No Action Required Laboratory Data Result diagrams: 10/12/21 09:59 10/13/21 05:59 Lab Results 10/12/21 10/12/21 Range/Units 05:04 05:42 Troponin I High Sens 17.4 H D (0-14) pg/ml SARS-CoV-2, RNA, NAAT NEGATIVE (NEGATIVE) Administered Medications Acetaminophen (Acetaminophen 325 Mg Tab) 650 mg PO Q4H PRN PRN Reason: Pain or Fever Stop: 11/11/21 10:10 Last Admin: 10/12/21 21:17 Dose: 650 mg Documented by: [id number] Admin: 10/12/21 13:59 Dose: 650 mg Documented by: [id number] Aspirin (Aspirin 81 Mg Ectab) 81 mg PO QAM [facility] Stop: 11/11/21 10:29 Last Admin: 10/13/21 08:17 Dose: 81 mg Documented by: [id number] Admin: 10/12/21 11:39 Dose: 81 mg Documented by: [id number] Enoxaparin Sodium (Enoxaparin Inj 40 Mg/0.4 Ml Syr) 40 mg SQ Q24H [facility] Stop: 11/11/21 10:29 Last Admin: 10/12/21 11:39 Dose: 40 mg Documented by: [id number] Famotidine (Famotidine 20 Mg Tab) 20 mg PO BID [facility] Stop: 11/11/21 10:29 Last Admin: 10/13/21 08:17 Dose: 20 mg Documented by: [id number] Admin: 10/12/21 21:09 Dose: 20 mg Documented by: [id number] Admin: 10/12/21 11:38 Dose: 20 mg Documented by: [id number] Fexofenadine HCl (Fexofenadine Hcl 180 Mg Tab) 180 mg PO DAILY [facility] Stop: 11/11/21 10:29 Last Admin: 10/13/21 08:18 Dose: 180 mg Documented by: [id number] Admin: 10/12/21 11:39 Dose: 180 mg Documented by: [id number] Flecainide Acetate (Flecainide Acetate 100 Mg Tablet) 50 mg PO Q12 [facility] Stop: 11/11/21 20:59 Last Admin: 10/13/21 08:18 Dose: 50 mg Documented by: [id number] Admin: 10/12/21 21:10 Dose: 50 mg Documented by: [id number] Fluoxetine HCl ([facility] Hcl 10 Mg Cap) [facility] [place]: 11/11/21 10:10 Last Admin: 10/13/21 08:19 Dose: 10 mg Documented by: [id number] Admin: 10/12/21 11:39 Dose: 10 mg Documented by: [id number] Fluticasone/Vilanterol (Fluticasone/Vilanterol 200/25mcg 14 Puffs/Inhaler) 1 puffs [facility] Stop: 11/11/21 10:29 Last Admin: 10/13/21 08:20 Dose: 1 puffs Documented by: [id number] Admin: 10/12/21 11:30 Dose: 1 puffs Documented by: [id number] Insulin Aspart (Insulin Aspart Per Unit) 0 units SC [facility] Stop: 11/11/21 10:10 Last Admin: 10/13/21 08:14 Dose: Not Given Documented by: [id number] Admin: 10/12/21 23:07 Dose: Not Given Documented by: [id number] Admin: 10/12/21 17:46 Dose: Not Given Documented by: [id number] Admin: 10/12/21 12:15 Dose: Not Given Documented by: [id number] Admin: 10/12/21 12:14 Dose: Not Given Documented by: [id number] Losartan Potassium (Losartan Potassium 50 Mg Tab) [facility]: 11/11/21 10:29 Last Admin: 10/13/21 08:19 Dose: 100 mg Documented by: [id number] Admin: 10/12/21 11:38 Dose: 100 mg Documented by: [id number] Miscellaneous (Melatonin 1 Mg Tablet Extended Release~Order Awaiting Action) 1 ea N/A QS [facility] Stop: 11/11/21 15:59 Last Admin: 10/12/21 23:37 Dose: Not Given Documented by: [id number] Admin: 10/12/21 23:17 Dose: Not Given Documented by: [id number] Multivitamins (Multivitamin Tab) 1 tab PO QA [facility] Stop: 11/11/21 10:29 Last Admin: 10/13/21 08:17 Dose: 1 tab Documented by: [id number] Admin: 10/12/21 11:38 Dose: 1 tab Documented by: [id number] Spironolactone (Spironolactone 25 Mg Tab) 25 mg PO DAILY [facility] Stop: 11/11/21 10:44 Last Admin: 10/13/21 08:17 Dose: 25 mg Documented by: [id number] Admin: 10/12/21 11:38 Dose: 25 mg Documented by: [id number] Verapamil HCl (Verapamil Hcl 240 Mg Tabcr) 240 mg PO QAM [facility] Stop: 11/11/21 08:59 Last Admin: 10/13/21 08:19 Dose: 240 mg Documented by: [id number] Admin: 10/12/21 09:43 Dose: 240 mg Documented by: [id number] Vitamin D (Cholecalciferol 1,000 Units 25 Mcg Tab) 1,[facility] [place]: 11/11/21 10:10 Last Admin: 10/13/21 08:18 Dose: 1,000 units Documented by: [id number] Admin: 10/12/21 11:38 Dose: 1,000 units Documented by: [id number] Discontinued Medications Adenosine (Adenosine Iv Soln 3 Mg/Ml 2 Ml Vial) 6 mg IV NOW STA Stop: 10/12/21 04:39 Last Admin: 10/12/21 04:56 Dose: 6 mg Documented by: [id number] Discharge Plan Visit Data Chief Complaint: Cardiac Assessment Stated Complaint: Cardiac Assessment ED Provider: Janis Escalera Discharge Problem: SVT (supraventricular tachycardia) Patient Disposition: Admitted As Inpatient Discharge Instructions Interventions: ED Discharge Assessment Last Done: 10/12/21 09:15
--- NOTE | 2021-10-12 09:20 | History and Physical Report ---
DATE OF ADMISSION: 10/12/2021. CHIEF COMPLAINT: SVT and chest discomfort. HISTORY OF PRESENT ILLNESS: This is a 76-year-old female with past medical history significant for type 2 diabetes, diabetic polyneuropathy, hyperlipidemia, bronchiectasis, COPD, chronic sinusitis, allergic rhinitis due to pollen, obstructive sleep apnea on CPAP; asthma, moderate persistent nocturnal hypoxia, dependence on nocturnal oxygen therapy, pulmonary nodules, paroxysmal SVT, AV carleen reentry tachycardia, carotid stenosis, hypertension, diastolic dysfunction, obesity, irritable bowel syndrome, vitamin D deficiency, diverticulosis of colon, GERD, history of dysphagia, angiomyolipoma of right kidney, osteoporosis, diffuse idiopathic skeletal hyperostosis, restless legs syndrome, monoclonal gammopathy of unknown significance, major depression, status post carotid endarterectomy, history of epistaxis, status post ablation of the arrhythmia, who lives at home, presents with SVT. The patient says she missed her verapamil dose yesterday morning and she had a brief episode of tachycardia yesterday afternoon and in the evening, she again had SVT and she came to the ER. She was given adenosine, she converted back to sinus rhythm and for question of UTI, she was given Augmentin and was discharged home. After going home, within half hour again she started to develop SVT and whenever she is having these palpitations, she is having chest discomfort, so came back to the ER. In the ER again she was given a dose of adenosine. She was converted back to sinus rhythm .But as she came to ER twice plan to obeserve in the hospital. Currently, resting comfortably, hemodynamically stable. Currently, no headache, no blurred visions, no earache, no runny nose, no sore throat. She has some cough and attributes it to allergies. Currently, no chest pain. She always has some shortness of breath from her COPD. No nausea, no vomiting. Appetite is okay. She has some difficulty swallowing pills and planning to followup with ENT. She has chronic abdominal pain, diverticulosis. Normal bowel movements. Currently, she has incontinence for some time of urine. No fever, no chills, has some swelling in the legs, mostly in the left lower extremity. Otherwise, ambulates okay. Hemodynamics are stable currently. ALLERGIES: CEFACLOR, ERYTHROMYCIN BASE, HYOSCYAMINE, SORBITOL, SULFA ANTIBIOTICS, SULFATE, CAMMIE INHIBITORS, ETODOLAC, LEVAQUIN, SACCHARINE. PAST MEDICAL HISTORY: As mentioned above. PAST SURGICAL HISTORY: Ablation of the heart arrhythmia, left total knee arthroplasty, left carotid artery catheter placement, x2, colonoscopies, dental surgery, EGD, ablation of SVT, laser trabeculoplasty, left knee arthroscopy, nasal endoscopy, cataract surgeries, laparoscopic cholecystectomy, tonsillectomy and adenoidectomy, sinus surgery, small bowel endoscopy with biopsy, left carotid endarterectomy, bilateral total abdominal hysterectomy with removal of bilateral tubes. MEDICATIONS: The patient is on albuterol 2 puffs inhalation q. 4 hours p.r.n., Augmentin 1 tablet p.o. b.i.d., aspirin 81 mg p.o. a.m., Breo Ellipta 1 inhalation daily, vitamin D 1000 units p.o. a.m., Pepcid 20 mg p.o. b.i.d., fexofenadine 180 mg p.o. daily, Prozac 10 mg p.o. a.m., Xopenex 0.63 mg inhalation p.r.n., losartan 100 mg p.o. a.m., melatonin 1 mg p.o. at bedtime, metformin 500 mg p.o. a.m., multivitamin 1 tablet a.m., simethicone 125 mg p.o. b.i.d. p.r.n., spironolactone 25 mg p.o. daily, verapamil 240 mg p.o. daily. FAMILY HISTORY: Significant for father had prostate cancer, eye problems. Mother had pancreatic cancer, eye problems. Brother has diabetes. Paternal grandfather had stroke. SOCIAL HISTORY: Lives alone. Quit smoking in 2016. Smoked 1 pack a day for 30 years. No alcohol use. No drug use. REVIEW OF SYSTEMS: As per HPI. Rest of the review of systems is negative. PHYSICAL EXAMINATION: GENERAL: The patient is obese, not in acute distress. VITAL SIGNS: Temperature 36.8, pulse when she came in was 135, currently 86, respiratory rate 18, blood pressure 117/78, oxygen 96% on room air. HEENT: Pupils equal, round and reactive to light. Oral mucosa moist. NECK: No JVD, no neck masses. CARDIOVASCULAR: S1 and S2 heard. Regular rate and rhythm. No murmur, no gallop. RESPIRATORY: Normal AP diameter. No accessory muscle use. No wheezing, no crackles. ABDOMEN: Soft. Bowel sounds present. Mild diffuse tenderness. No distention. CENTRAL NERVOUS SYSTEM: Cranial nerves II-XII grossly intact, nonfocal. EXTREMITIES: Lower extremity edema present, no erythema seen. LABORATORY DATA: Done yesterday, WBC 13.7, hemoglobin 12.5, hematocrit 39.9, platelets 440. Sodium 141, potassium 3.8, chloride 104, bicarbonate 25, BUN 22, creatinine 0.9, serum glucose 176, calcium 9.5, total bilirubin 0.4, AST 16, ALT 21, alkaline phosphatase 106. Troponin-I high sensitivity 4.8 yesterday and today 17.4. Urinalysis negative. COVID negative. IMAGING DATA: Chest x-ray, no acute findings. EKG: Sinus rhythm with first-degree AV block at a rate of 87. When she came in, EKG supraventricular tachycardia at a rate of 136, nonspecific ST abnormalities seen. ASSESSMENT AND PLAN: This 76-year-old female with history of supraventricular tachycardia, comes in with palpitations, found to have an supraventricular tachycardia converted to sinus rhythm with adenosine. This is second ER visit since yesterday. 1. Supraventricular tachycardia. She was in the ER yesterday in the evening, converted to sinus rhythm by adenosine, went home and came back again with chest discomfort and supraventricular tachycardia, again converted to sinus rhythm with adenosine. The patient says she missed her verapamil dose yesterday .Because she came couple of times to the ER and also her troponin is climbing up. We will observe in the hospital. We will do echo, serial cardiac enzymes, give her home verapamil. Place on IV Lopressor p.r.n. and keep her n.p.o. and consult Cardiology. Follow the repeat labs today. 2. History of chronic obstructive pulmonary disease, asthma: Continue her home inhalers, currently stable. 3. History of obstructive sleep apnea: On CPAP at bedtime. 4. History of diabetes: Hold metformin. Placed on insulin sliding scale. Follow the blood sugars. 5. History of hypertension: Continue her home medication of losartan and verapamil and Aldactone. Will monitor the blood pressure. 6. History of chronic diastolic congestive heart failure, on spironolactone. Monitor for any volume overload. Follow echocardiogram. 7. Gastroesophageal reflux disease: On Pepcid. 8. Depression: On fluoxetine. 9. Deep venous thrombosis prophylaxis: We will place on Lovenox. DISPOSITION: Closely monitor in the tele floor. PT, OT prior to discharge. Social service to help with discharge planning. Job ID: [id number] [place]
[2021-10-12] MEDS: VERAPAMIL HCL 240 MG TABCR PO SCH (09:43)
[2021-10-12] MEDS ORDERED: LEVALBUTEROL HCL 0.63 MG/3 ML NEB INH PRN (10:11)
[2021-10-12] MEDS ORDERED: METOPROLOL TARTRATE 1 MG/ML VIAL IV PRN (10:11)
[2021-10-12] MEDS ORDERED: ONDANSETRON INJ 2 MG/ML 2 ML VIAL IV PRN (10:11)
[2021-10-12] MEDS ORDERED: POLYETHYLENE (MIRALAX) 17 GM PACK PO PRN (10:11)
[2021-10-12] MEDS ORDERED: NITROGLYCERIN SL 0.4 MG/TAB TAB SL PRN (10:11)
[2021-10-12] MEDS ORDERED: ALBUTEROL HFA 8 GM INHALER INH PRN (10:22)
[2021-10-12 10:23] LABS: Basophils # (auto) 0.04 K/uL (0-0.2); Basophils % (auto) 0.3 %; Eosinophils % (auto) 0.9 %; Hematocrit (blood only) 37.8 % (37-47); Hemoglobin 11.8 g/dL (12.0-16.0); Immature Granulocytes # (auto) 0.03 K/uL (0.00-0.02); Immature Granulocytes % (auto) 0.3 %; Lymphocytes # (auto) 1.89 K/uL (1.2-3.4); Lymphocytes % (auto) 16.3 %; Mean Corpuscular Hemoglobin 28.4 pg (25-34); Mean Corpuscular Hgb Conc 31.2 g/dL (32-36); Mean Corpuscular Volume 90.9 fL (80-100); Mean Platelet Volume 9.6 fL (7.4-10.4); Neutrophils # (auto) 8.82 K/uL (1.4-6.5); Neutrophils % (auto) 76.2 %; Platelet Count 388 K/uL (130-400); RDW Coefficient of Variation 13.6 % (11.5-14.5); RDW Standard Deviation 44.9 fL (36.4-46.3); Red Blood Count 4.16 M/uL (4.2-5.4); White Blood Count 11.58 K/uL (4.8-10.8)
[2021-10-12] MEDS ORDERED: SIMETHICONE 80 MG CHEW PO PRN (10:25)
[2021-10-12 10:48] LABS: BUN Creatinine Ratio 25.6 (10-20); Calcium 9.2 mg/dl (8.5-10.1); Creatinine Clr Calc Pharmacy 69.4 ml/min; Est GFR (Non-African American) 73.3 ml/min; Magnesium 2.1 mg/dl (1.7-2.4)
[2021-10-12 10:52] LABS: Estimated Average Glucose 146 mg/dl; Hemoglobin A1C 6.7 % (4.5-5.6)
[2021-10-12] MEDS: FLUTICASONE/VILANTEROL 200/25MCG 14 PUFFS/INHALER INH SCH (11:30)
[2021-10-12] MEDS: LOSARTAN POTASSIUM 50 MG TAB PO SCH (11:38)
[2021-10-12] MEDS: SPIRONOLACTONE 25 MG TAB PO SCH (11:38)
[2021-10-12] MEDS: CHOLECALCIFEROL 1,000 UNITS 25 MCG TAB PO SCH (11:38)
[2021-10-12] MEDS: FAMOTIDINE 20 MG TAB PO SCH ×2 (11:38→21:09)
[2021-10-12] MEDS: MULTIVITAMIN TAB PO SCH (11:38)
[2021-10-12] MEDS: ENOXAPARIN INJ 40 MG/0.4 ML SYR SQ SCH (11:39)
[2021-10-12] MEDS: FEXOFENADINE HCL 180 MG TAB PO SCH (11:39)
[2021-10-12] MEDS: ASPIRIN 81 MG ECTAB PO SCH (11:39)
[2021-10-12] MEDS: FLUoxetine HCL 10 MG CAP PO SCH (11:39)
[2021-10-12] MEDS: INSULIN ASPART PER UNIT SC SCH ×4 (12:14→23:07)
--- NOTE | 2021-10-12 13:45 | Cardiology Consultation ---
Date of Consultation October 12, 2021 Assessment & Plan (1) SVT (supraventricular tachycardia): I spoke with Dr. Camp from [facility] regarding this patient today. He once again affirmed that the next step would be the addition of flecainide. Unfortunately, the patient is currently reluctant to start any new medications. She is going to talk to family members before she makes a decision. If she decides to stay and start flecainide she has to remain on a monitoring coordinator. If she decides against flecainide and would like to continue with verapamil then she can be discharged per the hospitalist service. The elevation in the high- sensitivity troponin is most likely a type II elevation as the patient had a normal cardiac cath approximately a year ago. History of Present Illness Attending Physician: Irwin Malik MD History of Present Illness This is a 76-year-old female well-known to our service. According to the patient, she has had 20 emergency department visits since 2018 due to PSVT. She has been seen by electrophysiology and an AV carleen reentry tachycardia ablation was performed with some success but did not completely root leave her arrhythmi as. She had a second procedure without success. She has been taking verapamil for over a year. She has been followed by Dr. Camp from [facility] who last met with her in June after she had a couple more episodes of SVT. At that time he offered to start her on flecainide to which she was reluctant and wanted to stay on verapamil only. She states she forgot her verapamil dose yesterday morning and then presented to the emergency department with an SVT terminated with adenosine to sinus rhythm. She was given her usual dose of verapamil and discharged in the emergency department only to return with a reoccurrence of the SVT and more adenosine converting her to normal sinus rhythm. She was then admitted. Currently she is in a sinus rhythm on telemetry. Allergies Allergy/AdvReac Type Severity Reaction Status Date / Time cefaclor Allergy Intermediate HIVES Verified 10/12/21 07:19 erythromycin base Allergy Intermediate HIVES Verified 10/12/21 07:19 hyoscyamine Allergy Intermediate HALLUCINATI Verified 10/12/21 07:19 ONS saccharin Allergy Intermediate WHEEZING Verified 10/12/21 07:19 sorbitol Allergy Intermediate STOMACH Verified 10/12/21 07:19 PAIN Sulfa (Sulfonamide Allergy Intermediate HIVES Verified 10/12/21 07:19 Antibiotics) sulfite Allergy Intermediate WHEEZING Verified 10/12/21 07:19 CAMMIE Inhibitors Allergy Mild COUGH Verified 10/12/21 07:19 etodolac AdvReac Intermediate STOMACH Verified 10/12/21 07:19 PAIN levofloxacin AdvReac Intermediate BRAIN FOG Verified 10/12/21 07:19 AND SPACEY Home Medications Medication Instructions Recorded Confirmed Type aspirin 81 mg tablet,delayed 81 mg PO QAM 05/19/18 10/12/21 History release (Aspirin Low Dose) cholecalciferol (vitamin D3) 25 1,000 unit PO QAM 05/19/18 10/12/21 History mcg (1,000 unit) capsule (Vitamin D3) famotidine 20 mg tablet (Pepcid) 20 mg PO BID 05/19/18 10/12/21 History losartan 100 mg tablet 100 mg PO QAM 05/19/18 10/12/21 History metformin 500 mg tablet 500 mg PO QAM 05/19/18 10/12/21 History multivitamin 1 tab PO QAM 05/19/18 10/12/21 History fluoxetine 10 mg capsule (Prozac) 10 mg PO QAM 11/18/18 10/12/21 History fluticasone furoate 200 1 inh INHALATION QAM 11/18/18 10/12/21 History mcg-vilanterol 25 mcg/dose inhalation powder (Breo Ellipta) melatonin 1 mg tablet,extended 1 mg PO HS 09/11/19 10/12/21 History release albuterol sulfate 90 mcg/actuation 2 puff INHALATION Q4H PRN 09/18/19 10/12/21 History aerosol inhaler (ProAir HFA) simethicone 125 mg capsule 125 mg PO BID PRN 03/13/20 10/12/21 History verapamil 240 mg tablet,extended 240 mg PO QAM 07/05/20 10/12/21 History release fexofenadine 180 mg tablet 180 mg PO HS 11/28/20 10/12/21 History levalbuterol HCl 0.63 mg/3 mL 0.63 mg INHALATION DIRECTED PRN 11/28/20 10/12/21 History solution for nebulization (Xopenex) amoxicillin 875 mg-potassium 1 tab PO BID #14 tab 10/11/21 10/12/21 Rx clavulanate 125 mg tablet spironolactone 25 mg tablet 25 mg PO QAM 10/12/21 10/12/21 History Patient History Medical History Anxiety Asthma, moderate persistent Carotid stenosis Chronic sinusitis COPD, moderate Degenerative disc disease Depression Diastolic dysfunction Diverticulitis DM type 2 (diabetes mellitus, type 2) GERD (gastroesophageal reflux disease) Gout History of anesthesia reaction pulse ox drops with any anesthesia Hyperlipidemia Hypertension IBS (irritable bowel syndrome) MGUS (monoclonal gammopathy of unknown significance) Nocturnal hypoxia Obstructive sleep apnea on CPAP CPAP AND O2 AT 3L AT HS Osteoarthritis SVT (supraventricular tachycardia) Surgical History H/O exploratory laparotomy H/O sinus surgery x2 - 05/09/11 - MAC #3, ETT #7.0 History of arthroscopy of left knee History of cardiac radiofrequency ablation (RFA) [facility] 12/2018 History of cataract surgery RT/LEFT History of colonoscopy History of dilatation and curettage History of esophagogastroduodenoscopy (EGD) History of hysterectomy History of tooth extraction S/P carotid endarterectomy "left, 09/2015" S/P section X 2 S/P cholecystectomy S/P tonsillectomy and adenoidectomy S/P total knee arthroplasty "left" Family History Mother Pancreatic cancer Father Prostate cancer Brother Family history of diabetes mellitus Other No family history of adverse response to anesthesia Social History Smoking Status: Former smoker Tobacco Type: Cigarettes Second Hand Exposure: No; Do You Dip or Chew Tobacco: No; Tobacco Cessation Education Requested by Patient: No Hx Alcohol Use: No Hx Substance Use: No Preferred Language: Mohawk Communication Ability: Effective Visual Impairment: No Limitations Hearing Ability: Normal [employer] Supervisor Required: No Beliefs That Will Affect Care: None marital status: Current Living Situation: Alone current occupational status: retired Other Information That Helps Us Care for You: No Feels Safe at Home: Yes Safety Concerns: Feels Safe At This Time Assistive Devices: Cane and Glasses Review of Systems Review of Systems: Review of Systems: See HPI for pertinent positives. All other 10 point review of systems are negative. Physical Exam Physical Exam: General: no acute distress and stated age Head: normocephalic, no masses, lesions, tenderness or abnormalities Eyes: conjunctiva are pink and non-injected, sclera clear Neck: supple, no adenopathy, no bruits, normal jugular venous pulse, no hepatojugular reflux Chest: normal shape and normal respiratory effort Lungs: clear to auscultation and percussion Cardiac Exam: - regular rate & rhythm, no murmurs gallops or rubs - normal S1, normal S2 Pulses: 2(+) throughout Abdomen: abdomen soft, non-tender, no abnormal masses and no hepatosplenomegaly Musculoskeletal: no gait disturbance, no joint inflammation, no deforming arthritis Extremities: no edema and no cyanosis Neuro: grossly normal exam Results & Data ([facility]) Vital Signs (Past 12 Hours) Vital Signs Temp Pulse Pulse Pulse Resp BP BP 10/12/21 11:50 36.9 C 70 18 134/77 10/12/21 10:14 36.9 C 83 18 133/75 10/12/21 10:11 10/12/21 09:47 83 133/70 10/12/21 09:15 75 18 152/69 H 10/12/21 08:35 75 18 133/62 10/12/21 07:13 80 16 136/74 10/12/21 05:55 86 18 117/78 10/12/21 05:13 36.8 C 22 128/67 10/12/21 04:43 135 H 24 109/77 Pulse Ox Pulse Ox 10/12/21 11:50 94 10/12/21 10:14 94 10/12/21 10:11 94 10/12/21 09:47 10/12/21 09:15 96 10/12/21 08:35 96 10/12/21 07:13 97 10/12/21 05:55 96 10/12/21 05:13 98 10/12/21 04:43 95 Laboratory Results Laboratory Results - last 24 hr 10/12/21 10/12/21 10/12/21 05:04 05:42 09:59 WBC RBC Hgb Hct MCV MCH MCHC RDW Std Deviation RDW Coeff of Tasha Plt Count MPV Immature Gran % (Auto) Neut % (Auto) Lymph % (Auto) [place] % (Auto) Eos % (Auto) Baso % (Auto) Neut # (Auto) Lymph # (Auto) [place] # (Auto) Eos # (Auto) Baso # (Auto) Immature Gran # (Auto) Sodium Potassium Chloride Carbon Dioxide Anion Gap BUN Creatinine Est Cr Clr Drug Dosing Est GFR ( Amer) Est GFR (Non-Af Amer) BUN/Creatinine Ratio Glucose POC Glucose Estimat Average Glucose Hemoglobin A1c Calcium Magnesium Troponin I High Sens 17.4 H D 26.6 H SARS-CoV-2, RNA, NAAT NEGATIVE 10/12/21 10/12/21 10/12/21 09:59 09:59 09:59 WBC 11.58 H RBC 4.16 L Hgb 11.8 L Hct 37.8 MCV 90.9 MCH 28.4 MCHC 31.2 L RDW Std Deviation 44.9 RDW Coeff of Tasha 13.6 Plt Count 388 MPV 9.6 Immature Gran % (Auto) 0.3 Neut % (Auto) 76.2 Lymph % (Auto) 16.3 [place] % (Auto) 6.0 Eos % (Auto) 0.9 Baso % (Auto) 0.3 Neut # (Auto) 8.82 H Lymph # (Auto) 1.89 [place] # (Auto) 0.70 H Eos # (Auto) 0.10 Baso # (Auto) 0.04 Immature Gran # (Auto) 0.03 H Sodium 142 Potassium 4.0 Chloride 107 Carbon Dioxide 27 Anion Gap 8 BUN 20 Creatinine 0.78 Est Cr Clr Drug Dosing 69.4 Est GFR ( Amer) 85.0 Est GFR (Non-Af Amer) 73.3 BUN/Creatinine Ratio 25.6 H Glucose 136 H POC Glucose Estimat Average Glucose 146 Hemoglobin A1c 6.7 H Calcium 9.2 Magnesium 2.1 Troponin I High Sens SARS-CoV-2, RNA, NAAT 10/12/21 12:12 WBC RBC Hgb Hct MCV MCH MCHC RDW Std Deviation RDW Coeff of Tasha Plt Count MPV Immature Gran % (Auto) Neut % (Auto) Lymph % (Auto) [place] % (Auto) Eos % (Auto) Baso % (Auto) Neut # (Auto) Lymph # (Auto) [place] # (Auto) Eos # (Auto) Baso # (Auto) Immature Gran # (Auto) Sodium Potassium Chloride Carbon Dioxide Anion Gap BUN Creatinine Est Cr Clr Drug Dosing Est GFR ( Amer) Est GFR (Non-Af Amer) BUN/Creatinine Ratio Glucose POC Glucose 114 H Estimat Average Glucose Hemoglobin A1c Calcium Magnesium Troponin I High Sens SARS-CoV-2, RNA, NAAT Medications Administered Current Inpatient Medications Acetaminophen (Acetaminophen 325 Mg Tab) 650 mg PO Q4H PRN PRN Reason: Pain or Fever Stop: 11/11/21 10:10 Albuterol (Albuterol Hfa 8 Gm Inhaler) 2 puffs INH Q4H PRN PRN Reason: Cough,SOB or Wheeze Stop: 11/11/21 10:21 Aspirin (Aspirin 81 Mg Ectab) 81 mg PO QAM [facility] Stop: 11/11/21 10:29 Last Admin: 10/12/21 11:39 Dose: 81 mg Documented by: Enoxaparin Sodium (Enoxaparin Inj 40 Mg/0.4 Ml Syr) 40 mg SQ Q24H [facility] Stop: 11/11/21 10:29 Last Admin: 10/12/21 11:39 Dose: 40 mg Documented by: Famotidine (Famotidine 20 Mg Tab) 20 mg PO BID [facility] Stop: 11/11/21 10:29 Last Admin: 10/12/21 11:38 Dose: 20 mg Documented by: Fexofenadine HCl (Fexofenadine Hcl 180 Mg Tab) 180 mg PO DAILY [facility] Stop: 11/11/21 10:29 Last Admin: 10/12/21 11:39 Dose: 180 mg Documented by: Fluoxetine HCl (Fluoxetine Hcl 10 Mg Cap) 10 mg PO QAM [facility] Stop: 11/11/21 10:10 Last Admin: 10/12/21 11:39 Dose: 10 mg Documented by: Fluticasone/Vilanterol (Fluticasone/Vilanterol 200/25mcg 14 Puffs/Inhaler) 1 puffs INH QAM [facility] Stop: 11/11/21 10:29 Last Admin: 10/12/21 11:30 Dose: 1 puffs Documented by: Insulin Aspart (Insulin Aspart Per Unit) 0 units SC ACHS [facility] Stop: 11/11/21 10:10 Last Admin: 10/12/21 12:15 Dose: Not Given Documented by: Levalbuterol HCl (Levalbuterol Hcl 0.63 Mg/3 Ml Neb) 0.63 mg INH Q4R PRN; Protocol PRN Reason: Shortness Of Breath Or Wheezing Stop: 11/11/21 10:10 Losartan Potassium (Losartan Potassium 50 Mg Tab) 100 mg PO [facility] Stop: 11/11/21 10:29 Last Admin: 10/12/21 11:38 Dose: 100 mg Documented by: Metoprolol Tartrate (Metoprolol Tartrate 1 Mg/Ml Vial) 5 mg IV Q6 PRN; Protocol PRN Reason: Tachycardia HR> 120. Stop: 11/11/21 10:10 Miscellaneous (Melatonin 1 Mg Tablet Extended Release~Order Awaiting Action) 1 ea N/A QS [facility] Stop: 11/11/21 15:59 Multivitamins (Multivitamin Tab) 1 tab PO [facility] Stop: 11/11/21 10:29 Last Admin: 10/12/21 11:38 Dose: 1 tab Documented by: Nitroglycerin (Nitroglycerin Sl 0.4 Mg/Tab Tab) 0.4 mg SL UD PRN PRN Reason: Chest Pain Stop: 11/11/21 10:10 Ondansetron HCl (Ondansetron Inj 2 Mg/Ml 2 Ml Vial) 4 mg IV Q6H PRN PRN Reason: Nausea Stop: 11/11/21 10:10 Polyethylene Glycol (Polyethylene (Miralax) 17 Gm Pack) 17 gm PO DAILY PRN PRN Reason: Constipation Stop: 11/11/21 10:10 Simethicone (Simethicone 80 Mg Chew) 160 mg PO BID PRN PRN Reason: Acid Reflux Stop: 11/11/21 10:24 Spironolactone (Spironolactone 25 Mg Tab) 25 mg PO DAILY [facility] Stop: 11/11/21 10:44 Last Admin: 10/12/21 11:38 Dose: 25 mg Documented by: Verapamil HCl (Verapamil Hcl 240 Mg Tabcr) 240 mg PO [facility] Stop: 11/11/21 08:59 Last Admin: 10/12/21 09:43 Dose: 240 mg Documented by: Vitamin D (Cholecalciferol 1,000 Units 25 Mcg Tab) 1,000 units PO [facility] Stop: 11/11/21 10:10 Last Admin: 10/12/21 11:38 Dose: 1,000 units Documented by:
[2021-10-12] MEDS ORDERED: ACETAMINOPHEN 325 MG TAB PO PRN (13:58)
--- NOTE | 2021-10-12 13:58 | Communication Note ---
Date of Service: October 12, 2021 Patient was seen and examined at bedside. Reviewed H&P note and cardiology note. Discussed with the patient. States she is thinking about starting flec ainide but has not made up her mind yet. She has some chores at home to take care of at home and she is going to ask her neighbors/sister to see if they can do that. Also has been having pain in her left knee, using Tylenol at home and requesting for the same here. Currently she feels fine. Had some chest tightness with SVT but nothing since then. Her telemetry was sinus rhythm with no events. Vital stable. Awake alert oriented, chest with some wheezing, normal heart sounds. No edema. Trop elevated, likely demand ischemia from her SVT episodes. Continue trending and continue tele. Please review H&P note for details.
[2021-10-12] MEDS: ACETAMINOPHEN 325 MG TAB PO PRN ×2 (13:59→21:17)
[2021-10-12] MEDS: FLECAINIDE ACETATE 100 MG TABLET PO SCH (21:10)
[2021-10-13 05:11] LABS: Appearance Urine Clear (Clear); Bacteria Urine Automated Negative (Negative); Bilirubin Urine Negative (Negative); Blood Urine Negative (Negative); Color Urine Yellow; Epithelial Cell Urine Auto >30 /lpf (0-5); Glucose Urine UA Negative (Negative); Ketones Urine Trace (Negative); Leukocyte Esterase Urine Trace (Negative); Nitrite Urine Negative (Negative); Protein Urine Negative (Negative); RBC Urine Automated 0-4 /hpf (0-4); Specific Gravity Urine 1.023 (1.000-1.030); Urobilinogen Urine Negative (Negative)
--- NOTE | 2021-10-13 06:27 | Electrocardiogram Report ---
Test Reason : Blood Pressure : / mmHG Vent. Rate : 136 BPM Atrial Rate : 141 BPM P-R Int : 000 ms QRS Dur : 068 ms QT Int : 296 ms P-R-T Axes : 000 049 026 degrees QTc Int : 445 ms Supraventricular tachycardia Low voltage QRS Nonspecific T wave abnormality Abnormal ECG When compared with ECG of 11-OCT-2021 21:21, No significant change Confirmed by Asa Donis ([id number]) on 10/13/2021 6:27:18 AM Referred By: REFERRED SELF Confirmed By:Asa Donis
--- NOTE | 2021-10-13 06:28 | Electrocardiogram Report ---
Test Reason : Blood Pressure : / mmHG Vent. Rate : 087 BPM Atrial Rate : 087 BPM P-R Int : 216 ms QRS Dur : 066 ms QT Int : 376 ms P-R-T Axes : 041 007 040 degrees QTc Int : 452 ms Sinus rhythm with 1st degree A-V block Low voltage QRS Borderline ECG When compared with ECG of 12-OCT-2021 04:10, [place] interval has increased Vent. rate has decreased BY 49 BPM Sinus rhythm has replaced Supraventricular tachycardia Confirmed by Asa Donis ([id number]) on 10/13/2021 6:27:56 AM Referred By: REFERRED SELF Confirmed By:Asa Donis
[2021-10-13 07:22] LABS: BUN Creatinine Ratio 26.7 (10-20); Calcium 8.9 mg/dl (8.5-10.1); Creatinine Clr Calc Pharmacy 72.5 ml/min; Est GFR (African American) 89.1 ml/min; Est GFR (Non-African American) 76.9 ml/min; Magnesium 2.1 mg/dl (1.7-2.4)
[2021-10-13] MEDS: INSULIN ASPART PER UNIT SC SCH ×4 (08:14→20:56)
[2021-10-13] MEDS: ASPIRIN 81 MG ECTAB PO SCH (08:17)
[2021-10-13] MEDS: FAMOTIDINE 20 MG TAB PO SCH ×2 (08:17→20:57)
[2021-10-13] MEDS: MULTIVITAMIN TAB PO SCH (08:17)
[2021-10-13] MEDS: SPIRONOLACTONE 25 MG TAB PO SCH (08:17)
[2021-10-13] MEDS: FLECAINIDE ACETATE 100 MG TABLET PO SCH ×2 (08:18→20:57)
[2021-10-13] MEDS: FEXOFENADINE HCL 180 MG TAB PO SCH (08:18)
[2021-10-13] MEDS: CHOLECALCIFEROL 1,000 UNITS 25 MCG TAB PO SCH (08:18)
[2021-10-13] MEDS: FLUoxetine HCL 10 MG CAP PO SCH (08:19)
[2021-10-13] MEDS: LOSARTAN POTASSIUM 50 MG TAB PO SCH (08:19)
[2021-10-13] MEDS: VERAPAMIL HCL 240 MG TABCR PO SCH (08:19)
[2021-10-13] MEDS: FLUTICASONE/VILANTEROL 200/25MCG 14 PUFFS/INHALER INH SCH (08:20)
[2021-10-13] MEDS: ENOXAPARIN INJ 40 MG/0.4 ML SYR SQ SCH (11:37)
--- NOTE | 2021-10-13 11:55 | Electrocardiogram Report ---
Test Reason : Blood Pressure : / mmHG Vent. Rate : 070 BPM Atrial Rate : 070 BPM P-R Int : 218 ms QRS Dur : 076 ms QT Int : 428 ms P-R-T Axes : 090 023 070 degrees QTc Int : 462 ms Sinus rhythm with 1st degree A-V block Low voltage QRS Abnormal ECG When compared with ECG of 12-OCT-2021 05:05, (unconfirmed) No significant change was found Confirmed by Junior Ferrari ([id number] on 10/13/2021 11:54:30 AM Referred By: REFERRED SELF Confirmed By:Mariusz Ferrari
--- NOTE | 2021-10-13 14:05 | Cardiology Progress Note ---
Date of Service October 13, 2021 Assessment & Plan (1) SVT (supraventricular tachycardia): (2) Encounter for monitoring anti-arrhythmic therapy: Plan: 76-year-old female with paroxysmal supraventricular tachycardia admitted with recurrence and for initiation of antiarrhythmic therapy. Flecainide begun. Patient has a history of normal structural heart and normal coronaries November 2020 EKG without preexcitation or QT prolongation. Study today with QT corrected 460 Plan continue telemetry overnight for additional 2 more doses of flecainide, repeat EKG in a.m. Admission and Anticipated Discharge Date Admission Date: October 12, 2021 Subjective Patient was seen and examined, chart, medications, telemetry reviewed. No complaints or issues overnight. No further arrhythmias. Tolerating current medical therapies. Review of Systems Review of Systems: All systems reviewed & are unremarkable except as noted in Subjective Physical Exam Physical Exam: General: Obese female in no acute distress Head: normocephalic, no masses, lesions, tenderness or abnormalities Eyes: conjunctiva are pink and non-injected, sclera clear Neck: supple, no adenopathy, no bruits, normal jugular venous pulse, no hepatojugular reflux Chest: normal shape and normal respiratory effort Lungs: clear to auscultation and percussion Cardiac Exam: - regular rate & rhythm, no murmurs gallops or rubs - normal S1, normal S2 Pulses: 2(+) throughout Abdomen: abdomen soft, non-tender, no abnormal masses and no hepatosplenomegaly Musculoskeletal: no gait disturbance, no joint inflammation, no deforming arthritis Extremities: Trace edema and no cyanosis Neuro: grossly normal exam Results & Data ([facility]) Vital Signs (Past 12 Hours) Vital Signs Temp Pulse Pulse Pulse Resp BP Pulse Ox 10/13/21 12:00 36.5 C 64 20 118/73 95 10/13/21 10:42 71 10/13/21 10:11 10/13/21 07:30 36.7 C 72 18 145/73 H 97 10/13/21 02:52 36.6 C 75 18 147/80 H 97 Pulse Ox 10/13/21 12:00 10/13/21 10:42 10/13/21 10:11 95 10/13/21 07:30 10/13/21 02:52 Laboratory Results Laboratory Results - last 24 hr 10/12/21 10/12/21 10/12/21 15:35 17:44 22:13 Sodium Potassium Chloride Carbon Dioxide Anion Gap BUN Creatinine Est Cr Clr Drug Dosing Est GFR ( Amer) Est GFR (Non-Af Amer) BUN/Creatinine Ratio Glucose POC Glucose 175 H 116 H Calcium Magnesium Troponin I High Sens 24.6 H Urine Color Urine Appearance Urine pH Ur Specific [place] Urine Protein Urine Glucose (UA) Urine Ketones Urine Blood Urine Nitrite Urine Bilirubin Urine Urobilinogen Ur Leukocyte Esterase Urine WBC (Auto) Urine RBC (Auto) U Hyaline Cast (Auto) U Epithel Cells (Auto) Urine Bacteria (Auto) 10/12/21 10/13/21 10/13/21 22:32 04:35 05:59 Sodium 140 Potassium 4.0 Chloride 107 Carbon Dioxide 25 Anion Gap 8 BUN 20 Creatinine 0.75 Est Cr Clr Drug Dosing 72.5 Est GFR ( Amer) 89.1 Est GFR (Non-Af Amer) 76.9 BUN/Creatinine Ratio 26.7 H Glucose 131 H POC Glucose Calcium 8.9 Magnesium 2.1 Troponin I High Sens 19.2 H D Urine Color Yellow Urine Appearance Clear Urine pH 5.0 Ur Specific [place] 1.023 Urine Protein Negative Urine Glucose (UA) Negative Urine Ketones Trace H Urine Blood Negative Urine Nitrite Negative Urine Bilirubin Negative Urine Urobilinogen Negative Ur Leukocyte Esterase Trace H Urine WBC (Auto) 5-10 H Urine RBC (Auto) 0-4 U Hyaline Cast (Auto) 1-5 U Epithel Cells (Auto) >30 H Urine Bacteria (Auto) Negative 10/13/21 10/13/21 07:15 11:32 Sodium Potassium Chloride Carbon Dioxide Anion Gap BUN Creatinine Est Cr Clr Drug Dosing Est GFR ( Amer) Est GFR (Non-Af Amer) BUN/Creatinine Ratio Glucose POC Glucose 129 H 115 H Calcium Magnesium Troponin I High Sens Urine Color Urine Appearance Urine pH Ur Specific [place] Urine Protein Urine Glucose (UA) Urine Ketones Urine Blood Urine Nitrite Urine Bilirubin Urine Urobilinogen Ur Leukocyte Esterase Urine WBC (Auto) Urine RBC (Auto) U Hyaline Cast (Auto) U Epithel Cells (Auto) Urine Bacteria (Auto)
[2021-10-13] MEDS: ACETAMINOPHEN 325 MG TAB PO PRN ×2 (14:18→22:02)
--- NOTE | 2021-10-13 14:57 | Hospitalist Progress Note ---
Date of Service October 13, 2021 Assessment & Plan (1) SVT (supraventricular tachycardia): (2) Asthma, moderate persistent: (3) Chronic diastolic CHF (congestive heart failure): (4) DM type 2 (diabetes mellitus, type 2): (5) Obstructive sleep apnea on CPAP: Plan: SVT- no more SVT since admission. Started on flecainide tolerating well. Also on verapamil. Continue tele, repeat EKG in am. Cardio following Elevated trop- Minimally elevated, already downtrending, likely demand ischemia from her episodes of SVT. No chest pain. Asthma- not in acute exacerbation. continue inhalers breo-ellipta MASSIMO on CPAP DM-2- metformin on hold. continue SSI chronic diastolic CHF- continue aldactone. no signs of volume overload Depression- on fluoxetine GERD- on pepcid HTN- on losartan, aldactone, verapamil. BP stable DVT prophylaxis- sc lovenox Dispo- Anticipate discharge tomorrow. 1 more day of monitoring while on flecainide- repeat EKG in am. Admission and Anticipated Discharge Date Admission Date: October 12, 2021 Subjective Seen and examined at bedside. Tolerating flecainde well. Feels well. no more SVTs. Asking if EKG will be repeated tomorrow and what time tomorrow she is going to be discharged. Physical Exam Physical Exam: General: Obese female, sitting in bed, eating lunch not in distress, on room air HEENT: EOMI, MIRTA, MMM Chest: Fair breath sounds bilaterally with scant wheezes CVS: Regular rate and rhythm, normal heart sounds, no murmur Abdomen: Soft, non tender, not distended, normal bowel sounds Neuro: Awake, alert, oriented, conversing well, non focal Extremities: No cyanosis, clubbing or edema Results & Data Results & Data ([facility]) Vital Signs (Past 12 Hours) Vital Signs Temp Pulse Pulse Pulse Resp BP Pulse Ox 10/13/21 12:00 36.5 C 64 20 118/73 95 10/13/21 10:42 71 10/13/21 10:11 10/13/21 07:30 36.7 C 72 18 145/73 H 97 10/13/21 02:52 36.6 C 75 18 147/80 H 97 Pulse Ox 10/13/21 12:00 10/13/21 10:42 10/13/21 10:11 95 10/13/21 07:30 10/13/21 02:52 Laboratory Results BMP 10/13/21 05:59 Sodium 140 Potassium 4.0 Chloride 107 Carbon Dioxide 25 BUN 20 Creatinine 0.75 Glucose 131 H Calcium 8.9 Urine 10/13/21 Range/Units 04:35 Urine Color Yellow Urine Appearance Clear (Clear) Urine pH 5.0 (4.5-7.5) Ur Specific Shepherd 1.023 (1.000-1.030) Urine Protein Negative (Negative) Urine Glucose (UA) Negative (Negative) Medications Administered Current Inpatient Medications Acetaminophen (Acetaminophen 325 Mg Tab) 650 mg PO Q4H PRN PRN Reason: Pain or Fever Stop: 11/11/21 10:10 Last Admin: 10/13/21 14:18 Dose: 650 mg Documented by: Albuterol (Albuterol Hfa 8 Gm Inhaler) 2 puffs INH Q4H PRN PRN Reason: Cough,SOB or Wheeze Stop: 11/11/21 10:21 Aspirin (Aspirin 81 Mg Ectab) [facility] [place]: 11/11/21 10:29 Last Admin: 10/13/21 08:17 Dose: 81 mg Documented by: Enoxaparin Sodium (Enoxaparin Inj 40 Mg/0.4 Ml Syr) 40 mg SQ Q24H [facility] Stop: 11/11/21 10:29 Last Admin: 10/13/21 11:37 Dose: 40 mg Documented by: Famotidine (Famotidine 20 Mg Tab) 20 mg PO BID [facility] Stop: 11/11/21 10:29 Last Admin: 10/13/21 08:17 Dose: 20 mg Documented by: Fexofenadine HCl (Fexofenadine Hcl 180 Mg Tab) 180 mg PO DAILY [facility] Stop: 11/11/21 10:29 Last Admin: 10/13/21 08:18 Dose: 180 mg Documented by: Flecainide Acetate (Flecainide Acetate 100 Mg Tablet) 50 mg PO Q12 [place] Stop: 11/11/21 20:59 Last Admin: 10/13/21 08:18 Dose: 50 mg Documented by: Fluoxetine HCl (Fluoxetine Hcl 10 Mg Cap) 10 mg PO QAM [facility] Stop: 11/11/21 10:10 Last Admin: 10/13/21 08:19 Dose: 10 mg Documented by: Fluticasone/Vilanterol (Fluticasone/Vilanterol 200/25mcg 14 Puffs/Inhaler) 1 [facility] [place]: 11/11/21 10:29 Last Admin: 10/13/21 08:20 Dose: 1 puffs Documented by: Insulin Aspart (Insulin Aspart Per Unit) 0 units SC ACHS [facility] Stop: 11/11/21 10:10 Last Admin: 10/13/21 12:43 Dose: Not Given Documented by: Levalbuterol HCl (Levalbuterol Hcl 0.63 Mg/3 Ml Neb) 0.63 mg INH Q4R PRN; Protocol PRN Reason: Shortness Of Breath Or Wheezing Stop: 11/11/21 10:10 Losartan Potassium (Losartan Potassium 50 Mg Tab) 100 mg PO QAM [facility] Stop: 11/11/21 10:29 Last Admin: 10/13/21 08:19 Dose: 100 mg Documented by: Metoprolol Tartrate (Metoprolol Tartrate 1 Mg/Ml Vial) 5 mg IV Q6 PRN; Protocol PRN Reason: Tachycardia HR> 120. Stop: 11/11/21 10:10 Miscellaneous (Melatonin 1 Mg Tablet Extended Release~Order Awaiting Action) 1 ea N/A QS [facility] Stop: 11/11/21 15:59 Last Admin: 10/12/21 23:37 Dose: Not Given Documented by: Multivitamins (Multivitamin Tab) [facility] [place]: 11/11/21 10:29 Last Admin: 10/13/21 08:17 Dose: 1 tab Documented by: Nitroglycerin (Nitroglycerin Sl 0.4 Mg/Tab Tab) 0.4 mg SL UD PRN PRN Reason: Chest Pain Stop: 11/11/21 10:10 Polyethylene Glycol (Polyethylene (Miralax) 17 Gm Pack) 17 gm PO DAILY PRN PRN Reason: Constipation Stop: 11/11/21 10:10 Simethicone (Simethicone 80 Mg Chew) 160 mg PO BID PRN PRN Reason: Acid Reflux Stop: 11/11/21 10:24 Spironolactone (Spironolactone 25 Mg Tab) 25 mg PO DAILY [facility] Stop: 11/11/21 10:44 Last Admin: 10/13/21 08:17 Dose: 25 mg Documented by: Verapamil HCl (Verapamil Hcl 240 Mg Tabcr) 240 mg PO [facility] Stop: 11/11/21 08:59 Last Admin: 10/13/21 08:19 Dose: 240 mg Documented by: Vitamin D (Cholecalciferol 1,000 Units 25 Mcg Tab) 1,000 units PO [facility] Stop: 11/11/21 10:10 Last Admin: 10/13/21 08:18 Dose: 1,000 units Documented by:
[2021-10-14] MEDS: ACETAMINOPHEN 325 MG TAB PO PRN (05:49)
[2021-10-14 06:15] LABS: Basophils # (auto) 0.05 K/uL (0-0.2); Basophils % (auto) 0.5 %; Eosinophils # (auto) 0.21 K/uL (0-0.5); Eosinophils % (auto) 2.2 %; Hematocrit (blood only) 34.9 % (37-47); Hemoglobin 10.8 g/dL (12.0-16.0); Immature Granulocytes # (auto) 0.01 K/uL (0.00-0.02); Immature Granulocytes % (auto) 0.1 %; Lymphocytes # (auto) 1.86 K/uL (1.2-3.4); Lymphocytes % (auto) 19.5 %; Mean Corpuscular Hemoglobin 28.4 pg (25-34); Mean Corpuscular Hgb Conc 30.9 g/dL (32-36); Mean Corpuscular Volume 91.8 fL (80-100); Mean Platelet Volume 9.6 fL (7.4-10.4); Monocytes # (auto) 0.56 K/uL (0.11-0.59); Monocytes % (auto) 5.9 %; Neutrophils # (auto) 6.84 K/uL (1.4-6.5); Neutrophils % (auto) 71.8 %; Platelet Count 352 K/uL (130-400); RDW Coefficient of Variation 13.7 % (11.5-14.5); RDW Standard Deviation 45.9 fL (36.4-46.3); White Blood Count 9.53 K/uL (4.8-10.8)
[2021-10-14 06:41] LABS: BUN Creatinine Ratio 29.2 (10-20); Calcium 8.8 mg/dl (8.5-10.1); Creatinine Clr Calc Pharmacy 75.3 ml/min; Est GFR (African American) 93.6 ml/min; Est GFR (Non-African American) 80.8 ml/min; Potassium 4.1 mmol/L (3.5-5.1)
--- NOTE | 2021-10-14 07:39 | Electrocardiogram Report ---
Test Reason : Blood Pressure : / mmHG Vent. Rate : 070 BPM Atrial Rate : 070 BPM P-R Int : 226 ms QRS Dur : 082 ms QT Int : 428 ms P-R-T Axes : 072 036 049 degrees QTc Int : 462 ms Sinus rhythm with 1st degree A-V block Low voltage QRS Nonspecific T wave abnormality Abnormal ECG When compared with ECG of 13-OCT-2021 04:57, No significant change was found Confirmed by Junior Ferrari ([id number]) on 10/14/2021 7:38:51 AM Referred By: REFERRED SELF Confirmed By:Mariusz Ferrari
[2021-10-14] MEDS: INSULIN ASPART PER UNIT SC SCH (08:23)
[2021-10-14] MEDS: FLECAINIDE ACETATE 100 MG TABLET PO SCH (08:24)
[2021-10-14] MEDS: ASPIRIN 81 MG ECTAB PO SCH (08:24)
[2021-10-14] MEDS: FEXOFENADINE HCL 180 MG TAB PO SCH (08:24)
[2021-10-14] MEDS: FLUoxetine HCL 10 MG CAP PO SCH (08:25)
[2021-10-14] MEDS: VERAPAMIL HCL 240 MG TABCR PO SCH (08:25)
[2021-10-14] MEDS: SPIRONOLACTONE 25 MG TAB PO SCH (08:25)
[2021-10-14] MEDS: LOSARTAN POTASSIUM 50 MG TAB PO SCH (08:25)
[2021-10-14] MEDS: MULTIVITAMIN TAB PO SCH (08:25)
[2021-10-14] MEDS: FAMOTIDINE 20 MG TAB PO SCH (08:25)
[2021-10-14] MEDS: FLUTICASONE/VILANTEROL 200/25MCG 14 PUFFS/INHALER INH SCH (08:25)
[2021-10-14] MEDS: CHOLECALCIFEROL 1,000 UNITS 25 MCG TAB PO SCH (08:26)
--- NOTE | 2021-10-14 10:51 | Cardiology Progress Note ---
Date of Service October 14, 2021 Assessment & Plan (1) SVT (supraventricular tachycardia): (2) Encounter for monitoring anti-arrhythmic therapy: Plan: 76-year-old female with paroxysmal supraventricular tachycardia admitted with recurrence and for initiation of antiarrhythmic therapy. Flecainide begun. Patient has a history of normal structural heart and normal coronaries November 2020 EKG without preexcitation or QT prolongation. Study today with QT corrected 462 Stable for discharge today on addition of flecainide at 50 mg twice per day. No change in other medication follow-up cardiology as scheduled 10/31/2021 Admission and Anticipated Discharge Date Admission Date: October 12, 2021 Subjective Patient seen and examined, chart, medications, telemetry reviewed. Overall feeling well. No recurrence of arrhythmias no abnormalities on telemetry. EKG without QT prolongation or conduction abnormalities Review of Systems Review of Systems: All systems reviewed & are unremarkable except as noted in Subjective Physical Exam Physical Exam: General: Obese female in no acute distress Head: normocephalic, no masses, lesions, tenderness or abnormalities Eyes: conjunctiva are pink and non-injected, sclera clear Neck: supple, no adenopathy, no bruits, normal jugular venous pulse, no hepatojugular reflux Chest: normal shape and normal respiratory effort Lungs: clear to auscultation and percussion Cardiac Exam: - regular rate & rhythm, no murmurs gallops or rubs - normal S1, normal S2 Pulses: 2(+) throughout Abdomen: abdomen soft, non-tender, no abnormal masses and no hepatosplenomegaly Musculoskeletal: no gait disturbance, no joint inflammation, no deforming arthritis Extremities: Trace edema and no cyanosis Neuro: grossly normal exam Results & Data ([facility]) Vital Signs (Past 12 Hours) Vital Signs Temp Pulse Pulse Resp BP BP Pulse Ox 10/14/21 09:39 36.5 C 69 18 123/78 134/77 96 10/14/21 07:20 71 10/14/21 07:02 36.5 C 69 18 134/77 96 10/14/21 03:00 36.6 C 66 18 123/78 98 10/14/21 01:13 73 Laboratory Results Laboratory Results - last 24 hr 10/13/21 10/13/21 10/13/21 11:32 16:23 20:10 WBC RBC Hgb Hct MCV MCH MCHC RDW Std Deviation RDW Coeff of Tasha Plt Count MPV Immature Gran % (Auto) Neut % (Auto) Lymph % (Auto) [place] % (Auto) Eos % (Auto) Baso % (Auto) Neut # (Auto) Lymph # (Auto) [place] # (Auto) Eos # (Auto) Baso # (Auto) Immature Gran # (Auto) Sodium Potassium Chloride Carbon Dioxide Anion Gap BUN Creatinine Est Cr Clr Drug Dosing Est GFR ( Amer) Est GFR (Non-Af Amer) BUN/Creatinine Ratio Glucose POC Glucose 115 H 105 H 106 H Calcium 10/14/21 10/14/21 10/14/21 05:30 05:30 07:03 WBC 9.53 RBC 3.80 L Hgb 10.8 L Hct 34.9 L MCV 91.8 MCH 28.4 MCHC 30.9 L RDW Std Deviation 45.9 RDW Coeff of Tasha 13.7 Plt Count 352 MPV 9.6 Immature Gran % (Auto) 0.1 Neut % (Auto) 71.8 Lymph % (Auto) 19.5 [place] % (Auto) 5.9 Eos % (Auto) 2.2 Baso % (Auto) 0.5 Neut # (Auto) 6.84 H Lymph # (Auto) 1.86 [place] # (Auto) 0.56 Eos # (Auto) 0.21 Baso # (Auto) 0.05 Immature Gran # (Auto) 0.01 Sodium 139 Potassium 4.1 Chloride 107 Carbon Dioxide 25 Anion Gap 7 BUN 21 Creatinine 0.72 Est Cr Clr Drug Dosing 75.3 Est GFR ( Amer) 93.6 Est GFR (Non-Af Amer) 80.8 BUN/Creatinine Ratio 29.2 H Glucose 124 H POC Glucose 129 H Calcium 8.8
--- NOTE | 2021-10-14 12:15 | Discharge Summary ---
Date of Service October 14, 2021 Admission HPI Per Admitting Provider This is a 76-year-old female with past medical history significant for type 2 diabetes, diabetic polyneuropathy, hyperlipidemia, bronchiectasis, COPD, chronic sinusitis, allergic rhinitis due to pollen, obstructive sleep apnea on CPAP; asthma, moderate persistent nocturnal hypoxia, dependence on nocturnal oxygen therapy, pulmonary nodules, paroxysmal SVT, AV carleen reentry tachycardia, carotid stenosis, hypertension, diastolic dysfunction, obesity, irritable bowel syndrome, vitamin D deficiency, diverticulosis of colon, GERD, history of dysphagia, angiomyolipoma of right kidney, osteoporosis, diffuse idiopathic ske letal hyperostosis, restless legs syndrome, monoclonal gammopathy of unknown significance, major depression, status post carotid endarterectomy, history of epistaxis, status post ablation of the arrhythmia, who lives at home, presents with SVT. The patient says she missed her verapamil dose yesterday morning and she had a brief episode of tachycardia yesterday afternoon and in the evening, she again had SVT and she came to the ER. She was given adenosine, she converted back to sinus rhythm and for question of UTI, she was given Augmentin and was discharged home. After going home, within half hour again she started to develop SVT and whenever she is having these palpitations, she is having chest discomfort, so came back to the ER. In the ER again she was given a dose of adenosine. She was converted back to sinus rhythm .But as she came to ER twice plan to obeserve in the hospital. Currently, resting comfortably, hemodynamically stable. Currently, no headache, no blurred visions, no earache, no runny nose, no sore throat. She has some cough and attributes it to allergies. Currently, no chest pain. She always has some shortness of breath from her COPD. No nausea, no vomiting. Appetite is okay. She has some difficulty swallowing pills and planning to followup with ENT. She has chronic abdominal pain, diverticulosis. Normal bowel movements. Currently, she has incontinence for some time of urine. No fever, no chills, has some swelling in the legs, mostly in the left lower extremity. Otherwise, ambulates okay. Hemodynamics are stable currently. Admission Exam Per Admitting Provider GENERAL: The patient is obese, not in acute distress. VITAL SIGNS: Temperature 36.8, pulse when she came in was 135, currently 86, respiratory rate 18, blood pressure 117/78, oxygen 96% on room air. HEENT: Pupils equal, round and reactive to light. Oral mucosa moist. NECK: No JVD, no neck masses. CARDIOVASCULAR: S1 and S2 heard. Regular rate and rhythm. No murmur, no gallop. RESPIRATORY: Normal AP diameter. No accessory muscle use. No wheezing, no crackles. ABDOMEN: Soft. Bowel sounds present. Mild diffuse tenderness. No distention. CENTRAL NERVOUS SYSTEM: Cranial nerves II-XII grossly intact, nonfocal. EXTREMITIES: Lower extremity edema present, no erythema seen. Principal Diagnosis SVTs Discharge Exam General: Obese, sitting comfortably in bed, not in distress, on room air HEENT: EOMI, MIRTA, MMM Chest: Fair breath sounds bilaterally with minimal scant wheezes CVS: Regular rate and rhythm, normal heart sounds, no murmur Abdomen: Soft, non tender, not distended, normal bowel sounds Neuro: Awake, alert, oriented, conversing well, non focal Extremities: No cyanosis, clubbing or edema Discharge Data Allergies Allergy/AdvReac Type Severity Reaction Status Date / Time cefaclor Allergy Intermediate HIVES Verified 10/12/21 07:19 erythromycin base Allergy Intermediate HIVES Verified 10/12/21 07:19 hyoscyamine Allergy Intermediate HALLUCINATI Verified 10/12/21 07:19 ONS saccharin Allergy Intermediate WHEEZING Verified 10/12/21 07:19 sorbitol Allergy Intermediate STOMACH Verified 10/12/21 07:19 PAIN Sulfa (Sulfonamide Allergy Intermediate HIVES Verified 10/12/21 07:19 Antibiotics) sulfite Allergy Intermediate WHEEZING Verified 10/12/21 07:19 CAMMIE Inhibitors Allergy Mild COUGH Verified 10/12/21 07:19 etodolac AdvReac Intermediate STOMACH Verified 10/12/21 07:19 PAIN levofloxacin AdvReac Intermediate BRAIN FOG Verified 10/12/21 07:19 AND SPACEY Consultations 10/12/21 05:17 ED Decision to Admit Stat 10/12/21 10:11 Consult Cardiology Routine Hospital Course (1) SVT (supraventricular tachycardia): (2) Asthma, moderate persistent: (3) Chronic diastolic CHF (congestive heart failure): (4) DM type 2 (diabetes mellitus, type 2): (5) Obstructive sleep apnea on CPAP: SVT- no more SVT since admission. Started on flecainide and tolerating well without issues. Tele and EKG reviewed. Discussed with cardio- Ok for discharge on verapamil and flecainide. OP f/u with cardio as scheduled. Elevated trop- Minimally elevated, already downtrending, likely demand ischemia from her episodes of SVT. No chest pain. H/o normal structural heart and normal coronaries by cath November 2020. Asthma- not in acute exacerbation. continue inhalers breo-ellipta MASSIMO on CPAP DM-2- continue metformin Chronic diastolic CHF- continue aldactone. no signs of volume overload Depression- on fluoxetine GERD- on pepcid HTN- on losartan, aldactone, verapamil. BP stable Total Time Total Time Spent Total Time Spent (In Minutes): 30 Discharge Plan Discharge Items Patient Disposition: Home - Self-Care Reason For Visit: Cardiac Assessment Discharge Diagnosis: SVTs Activity: Resume your previous activity Non-emergency contact: Primary Care Provider and Systems Administrator Call non-emergency contact if: you have any medication questions and your symptoms worsen Follow-up/Referrals: Andrae Hays MD [Primary Care Provider] - Diet: Carb Consistent or DM2 and Heart Healthy Addtl Attending Provider Instructions: You have been started on flecainde and you have tolerated well. Continue flecainde. No other medications have been changed Follow up with your cardiology. Pending Studies at Discharge: No Stand-Alone Forms: My [place], Smoking Cessation Medications and DC Order Prescriptions: New flecainide 100 mg Tablet 50 mg PO Q12 Qty: 60 RF: 0 Continued albuterol sulfate [ProAir HFA] 90 mcg/actuation HFA aerosol inhaler 2 puff inhalation Q4H PRN (Reason: Cough,SOB or Wheeze) RF: 0 metformin 500 mg tablet 500 mg PO QAM RF: 0 aspirin [Aspirin Low Dose] 81 mg Tablet,Delayed Release (Dr/Ec) 81 mg PO QAM RF: 0 famotidine [Pepcid] 20 mg Tablet 20 mg PO BID RF: 0 losartan 100 mg Tablet 100 mg PO QAM RF: 0 cholecalciferol (vitamin D3) [Vitamin D3] 1,000 unit Capsule 1,000 unit PO QAM RF: 0 multivitamin Tablet 1 tab PO QAM RF: 0 fluoxetine [Prozac] 10 mg Capsule 10 mg PO QAM RF: 0 Breo Ellipta 200-25 mcg/dose blister with device 1 inh inhalation QAM RF: 0 melatonin 1 mg Tablet Extended Release 1 mg PO HS RF: 0 simethicone 125 mg Capsule 125 mg PO BID PRN (Reason: Acid Reflux) RF: 0 verapamil 240 mg tablet extended release 240 mg PO QAM RF: 0 levalbuterol HCl [Xopenex] 0.63 mg/3 mL Solution For Nebulization 0.63 mg INHALATION DIRECTED PRN (Reason: Shortness Of Breath Or Wheezing) RF: 0 fexofenadine 180 mg Tablet 180 mg PO HS RF: 0 spironolactone 25 mg tablet 25 mg PO QAM RF: 0 Discontinued amoxicillin-pot clavulanate 875-125 mg tablet 1 tab PO BID Qty: 14 RF: 0 Discharge Orders: Discharge Order (Routine); Ordered 10/14/21 Ordered By: Irwin Martinez/Other Patient Handouts: Managing Type 2 Diabetes Admission Data Admit Date/Time: 10/12/21 06:33 Attending Provider: Irwin Malik Admit Provider: Mir Guaman Primary Care Provider: Andrae Hays Other Providers: Mir Guaman ; Donald Mcnally ; Pieter Olmstead ; Macario Liu ; Lopez Ovalle ; Crow Bowen ; Sidney Parrish ; Kamilla Poole ; Cuca Allen ; Maya Youngblood ; Alfredo Ayon Other Interventions: Discharge Summary Assessment (RN) Last Done: 10/14/21 09:39
== END 2021-10-14 10:48 | disposition home or self-care (01) ==
LOC: 2S 04:04 → ED 04:04 → 2S 09:15

== ENCOUNTER 2023-05-22 12:54 | Inpatient (IN) ==
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
--- OUTSIDE RECORDS SUMMARY | 2023-05-22 13:00 | External Medical Summary | Summary of Care ---
Author Name Unknown Organization [facility] Address [address] [place] [address] Phone [phone] Care Team Providers Care Shipping Weigher Name Role Phone Andrae Hays MD Primary Care Provider + Reason for Visit * Reason Onset Date Comments Encounter Created in Error 05/20/2023 Encounter Details Date Type Department Care Team (Late st Contact Info) Description 05/20/2023 Telephone General Internal Medicine [facility] [address] [place], [place] [phone] Andrae Hays MD [address] [place] [address] Encounter Created in Error (/) Allergies Active Allergy Reactions Criticality Noted Date [...] hemoglobin A1c goal of less than 7.0% ([facility]) Use as directed. Dx E11.9 [...] hemoglobin A1c goal of less than 7.0% ([facility]) Test twice daily as directed. [...] ications:COPD, group B, by GOLD 2017 classification ([facility]) USE 1 INHALATION BY MOUTH DAILY 180 Each 3 07/25/2022 Active Ezetimibe 10 MG Oral Tablet (Zetia) Take 1 Tablet by mouth in the morning. 0 Active metFORMIN HCl 500 MG Oral Tablet (Glucophage)Indication s:Type 2 diabetes mellitus with hemoglobin A1c goal of less than 7.0% ([facility]) TAKE 1 TABLET BY MOUTH DAILY WITH [...] hemoglobin A1c goal of less than 7.0% ([facility]) Test twice daily as directed. Dx E11.9. [...] replacement status 03/28/2010 Overview: left Dr Doherty, [facility] Type 2 diabetes mellitus wit h hemoglobin A1c goal of less than 7.0% 06/07/2009 Overview: ICD-10 update of inactive term Vitamin D deficiency 05/25/2009 Primary localized osteoarthrosis, lower leg 03/01 Osteoporosis 07/14/2002 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 Overview: [place] IgG monoclonol spike monoclonal gammopathy of undetermined [...] Hyperlipidemia 09/16/2016 07/23/2021 Depression with anxiety 12/25/2015 041 11/2019 Exertional shortness of breath 11/20/2015 03/15/2019 Left-sided carotid artery disease 07/31/2015 12/04/2018 HTN, goal below 130/80 06/28/201504/29 COPD, moderate 01/23/2015 12/09/2018 Overview: Per COPD GOLD Classification COPD with exacerbation 01/23/201504/29 Senile nuclear cataract 02/17/2014 06/0 12/2018 HTN, goal below 140/80 02/17/201206/28 Overview: Per [...] mRNA, LNP-s, No Pre serve, 2-Dose Series ([employer]) 02/23/2021,08/26/2020,08/05/2020 COVID-19, LNP-s, No Preserve , Jasbir-sucrose, Ages 12+ (Pfizer) 09/26/2021 COVID-19, MRNA-LNP, 23-24, P F, 30 MCG/0.3 mL, 12 YRS AND ABOVE, IM ([employer]-Comirnaty) 03/22/2023 Covid-19, Mrna, Lnp-s, Pf, B ivalent, [...] Influenza Virus Vac cine, Unspecified Formulation 03/28/2021,03/07/2020,04/23/2019,04/01,03/27/2017,03/29/2016,03/11/2016 ,03/31/2014,04/20/2013,03/09/2012,03/01,05/01/2010,03/23/2009,,05/13/2006,05/08/2005,04/18/2004,06/1999,04/28/2000 Seasonal Influenza, Quadriva lent Hd (Fluzone Hd) [...] encounter Miscellaneous Notes * Telephone Encounter - Andrae Hays MD - 05/20/2023 7:38 PM EST Error documented in this encounter Plan of Treatment Upcoming Encounters Date Type Department Care Team (Late st Contact Info) Description 06/04/2023 2:00 PM EST Imaging Radiology [facility] [address] [facility] [place] [address] 07/21/2023 3:00 PM EST Office Visit Cardiology, [facility] [address] [facility] [place] [address] Kamilla Poole PA-C [address] [facility] [place] [address] 08/22/2023 11:20 AM EST Office Visit General Internal Medicine [facility] 200 [facility] [place] [address] Andrae Hays MD 200 [facility] [place] [address] 10/23/2023 1:15 PM EDT Office Visit Ophthalmology, [facility] [address] [place] [address] Junior Mcnamara DO [address] [place] [address] 11/07/2023 11:00 AM EDT Office Visit [facility]tr [facility] [address] [facility] [place] [phone] Idania Garner CRNP 132 [place] [address] 11/27/2023 1:45 PM EDT Office Visit Hematology/Oncology [facility] 200 [facility] [place] [address] Wilber Muniz MD 200 [place] [address] 12/08/2023 11:40 AM EDT [facility] [address] [place] [address] Ab Carlisle MD [address] [place] [address] [facility] [place] [address] Scheduled Procedures Name Priority Associated Diagnoses Date/Ti me COLONOSCOPY FLEXIBLE PROXIMA L DIAGNOSTIC Recall Hx of diverticulitis of colon Health Maintenance Due Date Last Done Comments Alpha-1 Antitrypsin 1962 Zoster Vaccines (2 of 2) 11/02/2008 09/07/2008, 08/28 COLONOSCOPY-EVERY 5 YRS AGES 18-100 07/23/2016 07/23/2011, 09/01/2001, 06/26/2001 *BISPHONATE OR OTHER ACCEPTABLE MEDICATION NEEDED FOR OSTEOPOROSIS (REFER TO SMARTSET #1146) 12/06/2018 Albumin/Creatinine Ratio 05/16/2023 022, 10/29/2021, 09/24/2017, Additional history exists Diabetic Eye Exam 09/14/2023 09/13/2022, , 03/22/2022, Additional history exists HbA1c 11/15/2023 05/17/2023, 0601/2023, 05/27/2022, Additional history exists Depression Screening 11/20/2023 11/19/2022 B-12 12/06/2023 12/05/2022, 07/06/2021, 10/18/2021, Additional history exists Diabetic Foot Exam [...] D LEVEL ONCE IN A LIFETIME-USE SMARTSET# 52945 Completed 05/17/2023, 05/27/2022, 01/18/2021, Additional history exists GARDASIL-HPV IMMUNIZATION SERIES Aged Out No longer eligible based on patient's age to complete this topic MENINGOCOCCAL (MENACTRA/MENVEO) Aged Out No longer eligible based on patient's age to complete this topic documented as of this encounter Medical Devices Implanted Type Area Food Science Technician Device Identifier Shelf Expiration Date Model / Serial / Lot Lens 10.5 Sn60wf - [id number] Implanted:Qty: 1 on 04/27/2014 at OR [facility] Left: Eye [employer] 02/27/2019 SN60WF.105 / [id number] / Lens 12.5 Sn60wf - [id number] Implanted:Qty: 1 on 05/11/2014 at OR [facility] Right: Eye [employer] 02/27/2019 SN60WF.125 / [id number] / documented as of this encounter Advance [...] and were consensually agreed upon. Care Teams Shipping Weigher Relationship Specialty Start Date End Date Andrae Hays MD 200 [facility] [place] [address] PCP - General Internal Medicine 04/10/16 documented as of this encounter
--- OUTSIDE RECORDS SUMMARY | 2023-05-22 13:00 | External Medical Summary | Summary of Care ---
Author Name Unknown Organization [facility] Address [address] [place] [address] Phone [phone] Care Team Providers Care Multiple Knife Edge Trimmer Operator Name Role Phone Andrae Hays MD Primary Care Provider + Reason for Visit * Reason Comments Outpatient Testing Encounter Details Date Type Department Care Team (Late st Contact Info) Description 05/19/2023 7:40 AM EST Laboratory Laboratory [facility] [address] [place] [address] Pod3, Specimen Drop Off [facility] [address] [place] [address] Urinary frequency Allergies Active Allergy Reactions Criticality Noted Date [...] as of this encounter (statuses as of 05/19/2023) Medications Medication Sig Dispensed Refills Start Date [...] hemoglobin A1c goal of less than 7.0% ([facility]) Use as directed. Dx E11.9 1 Kit [...] hemoglobin A1c goal of less than 7.0% ([facility]) Test twice daily as directed. Pt has [...] ications:COPD, group B, by GOLD 2017 classification ([facility]) USE 1 INHALATION BY MOUTH DAILY 180 [...] as of this encounter (statuses as of 05/19/2023) Active Problems Problem Noted Date Diagnosed Date [...] replacement status 03/28/2010 Overview: left Dr Doherty, [facility] Type 2 diabetes mellitus wit h hemoglobin A1c goal of less than 7.0% 06/07/2009 Overview: ICD-10 update of inactive term Vitamin D deficiency 05/25/2009 Primary localized osteoarthrosis, lower leg 03/01 Osteoporosis 07/14/2002 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 Overview: [place] 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 Irritable bowel syndrome Chronic sinusitis MASSIMO on CPAP Overview: CPAP 7 cwp 3 LPM AHP documented as of this encounter (statuses as of 05/19/2023) Resolved Problems Problem Noted Date Diagnosed Date [...] Hyperlipidemia 09/16/2016 07/23/2021 Depression with anxiety 12/25/2015 04/1 11/2019 Exertional shortness of breath 11/20/2015 03/15/2019 [...] as of this encounter (statuses as of 05/19/2023) Immunizations Name Administration Dates Next Due COVID-19 mRNA, LNP-s, No Pre serve, 2-Dose Series ([employer]) 02/23/2021,08/26/2020,08/05/2020 COVID-19, LNP-s, No Preserve , Jasbir-sucrose, [...] No 09/29/2015 documented as of this encounter Plan of Treatment Upcoming Encounters Date Type Department Care Team (Late st Contact Info) Description 05/27/2023 1:35 PM EST Office Visit Urogynecology [facility] [address] [place] [address] Neel James MD [address] [place] [address] Nurse Dick [facility] [address] [place] [address] 07/21/2023 3:00 PM EST [facility] [address] [place] [address] Kamilla Poole PA-C [facility] [place] [address] 08/22/2023 11:20 AM EST Office Visit General Internal Medicine [facility] 200 [facility] [place] [address] Andrae Hays MD 200 [facility] [place] [address] 10/23/2023 1:15 PM EDT Office Visit Ophthalmology, [facility] [place] [address] Junior Mcnamara DO [address] [facility] [place] [address] 11/07/2023 11:00 AM EDT Office Visit [facility] Disorders Ctr [facility] 132 [facility] [place] [phone] Idania Garner CRNP 132 [place] [address] 11/27/2023 1:45 PM EDT Office Visit Hematology/Oncology [facility] 200 [facility] [place], [place] [address] Wilber Muniz MD 200 [facility] [place] [address] 12/08/2023 11:40 AM EDT [facility] [address] [place] [address] Ab Carlisle MD [address] [place], [place] [id number] Cart, Telemed Pulm 132 [facility] [place] [address] Pending Results Name Type Priority Associated Diagnoses Date /Time URINALYSIS, REFLEX TO CULTURE (NOT FOR NEUTROPENIC PATIENTS) Lab Routine Urinary frequency 05/19/2023 7:36 AM EST URINALYSIS, REFLEX TO CULTURE (CUP ONLY) Lab Routine Urinary frequency 05/19/2023 7:36 AM EST URINALYSIS, REFLEX TO CULTURE Lab Routine Urinary frequency 05/19/2023 7:36 AM EST Scheduled Procedures Name Priority Associated Diagnoses Date/Ti [...] 03/22/2022, Additional history exists HbA1c 11/15/2023 05/17/2023, 06/0 01/2023, 05/27/2022, Additional history exists Depression Screening 11/20/2023 11/19/2022 B-12 12/06/2023 12/05/2022, 07/2 06/2021, 10/18/2021, Additional history exists Diabetic Foot Exam 04/21/2024 04/21/2023, 1 07/16/2021, 04/16/2021, Additional history exists GFR 05/17/2024 05/17/2023, 10/0 11/2022, 12/05/2022, Additional history exists O2 ASSESSMENT COMPLETED [...] D LEVEL ONCE IN A LIFETIME-USE SMARTSET# 59417 Completed 05/17/2023, 05/27/2022, 01/18/2021, Additional history exists GARDASIL-HPV IMMUNIZATION SERIES Aged Out No longer eligible based on patient's age to complete this topic MENINGOCOCCAL (MENACTRA/MENVEO) Aged Out No longer eligible based on patient's age to complete this topic documented as of this encounter Medical Devices Implanted Type Area Ammonia Refrigeration Worker Device Identifier Shelf Expiration Date Model / Serial / Lot Lens 10.5 Sn60wf - [id number] Implanted:Qty: 1 on 04/27/2014 at OR [facility] Left: Eye [employer] 02/27/2019 SN60WF.105 / [id number] / Lens 12.5 Sn60wf - [id number] Implanted:Qty: 1 on 05/11/2014 at OR [facility] Right: Eye [employer] 02/27/2019 SN60WF.125 / [id number] / documented as of this encounter Visit Diagnoses Diagnosis Urinary frequency documented in this encounter Advance Directives Latest Code Status [...] and were consensually agreed upon. Care Teams Multiple Knife Edge Trimmer Operator Relationship Specialty Start Date End Date Andrae Hays MD 200 [facility], [place] [phone] PCP - General Internal Medicine 04/10/16 documented as of this encounter
--- OUTSIDE RECORDS SUMMARY | 2023-05-22 13:01 | External Medical Summary ---
Author Name Unknown Address Unknown Organization K0G:[facility] - [address] [place] [address] Laboratory Report Ordering Provider Test Date Status PRIYANKA GARRETT 05/17/2023 10:04:46 Final Observation Date Value Abnormality Reference (Units ) Status SYNC LEUKOCYTES IN BLOOD BY AUTOMATED COUNT 05/17/2023 10:04:46 11.84 Above high normal 4.00-10.80 (K/uL) Final Neutrophils/100 leukocytes in Blood by Manual count 05/17/2023 10:04:46 81.0 Above high normal 40.0-75.0 (%) Final Lymphocytes/100 leukocytes in Blood by Manual count 05/17/2023 10:04:46 15.0 Below low normal 18.0-42.0 (%) Final Monocytes/100 leukocytes in Blood by Manual count 05/17/2023 10:04:46 2.0 1.0-11.0 (%) Final Eosinophils/100 leukocytes in Blood by Manual count 05/17/2023 10:04:46 1.0 0.0-6.0 (%) Final Basophils/100 leukocytes in Blood by Manual count 05/17/2023 10:04:46 1.0 0.0-2.0 (%) Final Neutrophils [#/volume] in Blood by Manual count 05/17/2023 10:04:46 9.59 Above high normal 1.80-7.70 (K/uL) Final Lymphocytes [#/volume] in Blood by Manual count 05/17/2023 10:04:46 1.78 1.00-4.80 (K/uL) Final Monocytes [#/volume] in Blood by Manual count 05/17/2023 10:04:46 0.24 0.00-1.10 (K/uL) Final Eosinophils [#/volume] in Blood by Manual count 05/17/2023 10:04:46 0.12 0.00-0.70 (K/uL) Final Basophils [#/volume] in Blood by Manual count 05/17/2023 10:04:46 0.12 0.00-0.20 (K/uL) Final Nucleated erythrocytes/100 leukocytes [Ratio] in Blood by Automated count 05/17/2023 10:04:46 Final Performing Location LABORATORY [facility] [place] [address] [place] [address]
--- OUTSIDE RECORDS SUMMARY | 2023-05-22 13:01 | External Medical Summary | Summary of Care ---
Author Name Unknown Organization [facility] Address [address] [place] [address] Phone [phone] Care Team Providers Care Film Rental Clerk Name Role Phone Andrae Hays MD Primary Care Provider + Reason for Visit * Reason Onset Date Comments Medication Refill 01/27/2023 Encounter Details Date Type Department Care Team (Late st Contact Info) Description 01/27/2023 Refill General Internal Medicine [facility] 200 [facility] [place] [address] Ta Hamilton PA-C 200 [facility] [place] [address] Allergies Active Allergy Reactions Criticality Noted Date [...] as of this encounter (statuses as of 04/24/2023) Medications Medication Sig Dispensed Refills Start Date [...] hemoglobin A1c goal of less than 7.0% ([facility]) Use as directed. Dx E11.9 1 Kit 0 04/03/2018 Active acetaminophen (TYLENOL) 500 MG Tablet Take 1 Tablet by mouth every 8 hours as needed. 100 Tab 0 03/15/2019 Active Simethicone 125 MG CAPS Take 1 Tab by mouth as needed. 0 Active Melatonin ER 1 MG TBCR Take 1 Tab by mouth at bedtime. 0 Active Accu-Chek FastClix Lancets MISCIndications:Type 2 diabetes mellitus with hemoglobin A1c goal of less than 7.0% ([facility]) Test twice daily as directed. Pt has this style lancing device at home already. DX E11.9 100 Each 5 02/18/2020 Active Centrum Silver 50+Women Oral Tablet Take 1 Tab by mouth daily. 0 Active Fexofenadine HCl 180 MG Oral Tablet Take 1 Tablet by mouth in the morning. 0 Active Mupirocin 2 % External Ointment [...] ications:COPD, group B, by GOLD 2017 classification ([facility]) USE 1 INHALATION BY MOUTH DAILY 180 [...] Dx E11.9. 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 Irritable bowel syndrome Chronic sinusitis MASSIMO on CPAP Overview: CPAP 7 cwp 3 LPM AHP documented as of this encounter (statuses as of 04/24/2023) Resolved Problems Problem Noted Date Diagnosed Date [...] 04/15/2017 Hyperlipidemia 09/16/2016 07/23/2021 Depression with anxiety 12/25/201509/28 Exertional shortness of breath 11/20/2015 03/15/2019 Left-sided carotid artery disease 07/31/2015 12/04/2018 HTN, goal below 130/80 06/28/201504/29 COPD, moderate 01/23/2015 12/09/2018 Overview: Per COPD GOLD Classification COPD with exacerbation 01/23/201504/29 Senile nuclear cataract 02/17/201412/2018 HTN, goal below 140/80 02/17/201206/28 Overview: Per [...] as of this encounter (statuses as of 04/24/2023) Immunizations Name Administration Dates Next Due COVID-19 mRNA, LNP-s, No Pre serve, 2-Dose Series ([employer]) 02/23/2021,08/26/2020,08/05/2020 COVID-19, LNP-s, No Preserve , Jasbir-sucrose, Ages 12+ (Pfizer) 09/26/2021 Covid-19, Mrna, Lnp-s, Pf, B ivalent, 30 Mcg, IM, 12 yrs and above ([employer]) 03/08/2022 H1N1 2009 Influenza, IM 07/19/2009 PPD [...] Seasonal Influenza, Quadriva lent Hd (Fluzone Hd) 03/28/2021 Seasonal Influenza, Quadriva lent, No Preserve, IM [...] or making decisions? (5 years old or older No 09/29/2015 documented as of this encounter Plan of Treatment Upcoming Encounters Date Type Department Care Team (Late st Contact Info) Description 04/30/2023 9:30 AM EDT Office Visit Cardiology, [facility] [address] [place] [address] Macario Liu MD [address] [place] [address] 05/27/2023 1:35 PM EST Office Visit Urogynecology [facility] [address] [place] [address] Neel James MD [address] [place] [address] [facility]Nurse Dick ab[facility] [address] [place] [address] 08/22/2023 11:20 AM EST Office Visit General Internal Medicine [facility] 200 [facility] [place] [address] Andrae Hays MD 200 [place] [address] 10/23/2023 1:15 PM EDT Office Visit Ophthalmology, [facility] [address] [place] [address] Junior Mcnamara DO [address] [place] [address] 11/07/2023 11:00 AM EDT Office Visit Sleep Disorders Ctr [facility] [address] [place] [phone] Idania Garner CRNP [address] [place] [address] 11/27/2023 1:45 PM EDT Office Visit Hematology/Oncology [facility] [place] [address] [place] [address] Wilber Muniz MD [address] [place] [address] 12/08/2023 11:40 AM EDT [facility] [address] [place] [address] Ab Carlisle MD [address] [place], [place] [phone] Cart, Telemed Pulm Gw [address] [place] [place] [address] Scheduled Procedures Name Priority Associated Diagnoses Date/Ti me COLONOSCOPY FLEXIBLE PROXIMA L DIAGNOSTIC Recall Hx of diverticulitis of colon Health Maintenance Due Date Last Done Comments Alpha-1 Antitrypsin 1962 Zoster Vaccines (2 of 2) 11/02/2008 09/07/2008, 08/28 COLONOSCOPY-EVERY 5 YRS AGES 18-100 07/23/2016 07/23/2011, 09/01/2001, 06/26/2001 *BISPHONATE OR OTHER ACCEPTABLE MEDICATION NEEDED FOR OSTEOPOROSIS (REFER TO SMARTSET #1146) 12/06/2018 DIABETES-EYE EXAM 09/28/2022 09/28/2021, , 08/25/2020, Additional history exists Albumin/Creatinine Ratio 05/16/2023 022, 10/29/2021, 09/24/2017, Additional history exists HbA1c 06/06/2023 12/05/2022, 05/01, 01/17/2022, Additional history exists Depression Screening 11/20/2023 11/19/2022 B-12 12/06/2023 12/05/2022, 12/29, 10/18/2021, Additional history exists GFR 04/04/2024 04/04/2023, 06/0 01/2023, 08/23/2022, Additional history exists Diabetic Foot Exam 04/21/2024 04/21/2023, 1 07/16/2021, 04/16/2021, Additional history exists O2 ASSESSMENT COMPLETED IN PAST YEAR FOR COPD 04/21/2024 04/21/2023 DTaP,Tdap,and Td Vaccines (3 - Td or Tdap) 12/09/2031 12/08/2021, 02/11/2008, 10/16/1992 Hepatitis B Completed 05/14/2002, 11/28, 10/15/2001, Additional history exists DXA Scan Discontinued 08/02/2015, 07/02, 07/29/2011, Additional history exists Pneumococcal Vaccine: 65+ Years Completed 09/24/2017, 04/28/2015, 03/23/2009 VITAMIN D LEVEL ONCE IN A LIFETIME-USE SMARTSET# 04403 Completed 05/27/2022, 01/18/2021, 02/10/2020, Additional history exists COVID-19 Vaccine Completed 03/22/2023, 02/2022, 09/26/2021, Additional history exists Influenza Vaccine (FLU shot) Completed 04/04/2023, 03/07/2022, 03/28/2021, Additional history exists GARDASIL-HPV IMMUNIZATION SERIES Aged Out No longer eligible based on patient's age to complete this topic MENINGOCOCCAL (MENACTRA/MENVEO) Aged Out No longer eligible based on patient's age to complete this topic documented as of this encounter Medical Devices Implanted Type Area Legal Secretary Receptionist Device Identifier Shelf Expiration Date Model / Serial / Lot Lens 10.5 Sn60wf - [id number] Implanted:Qty: 1 on 04/27/2014 at OR [facility] Left: Eye [employer] 02/27/2019 SN60WF.105 / [id number] / Lens 12.5 Sn60wf - [id number] Implanted:Qty: 1 on 05/11/2014 at OR [facility] Right: Eye [employer] 02/27/2019 SN60WF.125 / [id number] / documented as of this encounter Advance [...] and were consensually agreed upon. Care Teams Film Rental Clerk Relationship Specialty Start Date End Date Andrae Hays MD 200 [place] [address] PCP - General Internal Medicine 04/10/16 documented as of this encounter
--- OUTSIDE RECORDS SUMMARY | 2023-05-22 13:01 | External Medical Summary ---
Author Name Unknown Address Unknown Organization K01:LABORATORY [facility] - [address] [facility] [address] Laboratory Report Ordering Provider Test Date Status PRIYANKA GARRETT 05/17/2023 10:04:46 Final Observation Date Value Abnormality Reference (Units ) Status HbA1C 05/17/2023 10:04:46 8.0 Above high normal 4. 0-5.6 (%) Final The use of HbA1c to monitor glycemic status is based on normal hemoglobin and HbA composition. This test should not be used in patients with abnormal hemoglobin that affects the half life of the red blood cell or the in vivo glycation rates. Glucose, estimated average 05/17/2023 10:04:46 183 Above high normal <126 (mg/dL) Ildefonso hull Performing Location LABORATORY [facility] - [address] [facility] [address]
--- OUTSIDE RECORDS SUMMARY | 2023-05-22 13:01 | External Medical Summary ---
Author Name Unknown Address Unknown Organization [id number]:[facility] [place] [address] [place] [address] Laboratory Report Ordering Provider Test Date Status PRIYANKA GARRETT 05/17/2023 10:04:46 Final Observation Date Value Abnormality Reference (Units ) Status WBC, Total 05/17/2023 10:04:46 11.84 Above high normal 4 .00-10.80 (K/uL) Final RBC 05/17/2023 10:04:46 4.26 3.85-5.15 (M/uL) Final Hemoglobin 05/17/2023 10:04:46 11.7 Below low normal 12 .0-15.3 (g/dL) Final HCT 05/17/2023 10:04:46 38.4 36.0-45.2 (%) Final MCV 05/17/2023 10:04:46 90.1 81.5-97.5 (fL) Final MCH 05/17/2023 10:04:46 27.5 27.0-34.0 (pg) Final MCHC 05/17/2023 10:04:46 30.5 32.0-36.0 (g/dL) Final RDW 05/17/2023 10:04:46 13.8 11.5-15.5 (%) Final Platelets 05/17/2023 10:04:46 497 Above high normal 14 0-400 (K/uL) Final MPV 05/17/2023 10:04:46 9.2 6.6-11.1 ( fL) Final Performing Location [facility] [place] [address] [place] [address]
--- OUTSIDE RECORDS SUMMARY | 2023-05-22 13:01 | External Medical Summary | Summary of Care ---
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 Dx E11.9 1 Kit [...] 7.0% (HCC) Test twice daily as directed. Pt has [...] group B, by GOLD 2017 classification ([facility]) USE 1 INHALATION BY MOUTH DAILY 180 Each 3 07/25/2022 Active Ezetimibe 10 MG Oral Tablet (Zetia) Take 1 Tablet by mouth in the morning. 0 Active metFORMIN HCl 500 MG Oral Tablet (Glucophage)Indication s:Type 2 diabetes mellitus with hemoglobin A1c goal of less than 7.0% ([facility]) TAKE 1 TABLET BY MOUTH DAILY WITH [...] A1c goal of less than 7.0% ([facility]) Test twice daily as directed. Dx E11.9. 100 Strip 5 01/21/2023 Active Verapamil HCl ER 180 MG Oral Tablet Extended Release (Isoptin SR)Indications:SVT (supraventricular tachycardia),HTN, goal below 140/90 Take 1 Tablet by mouth in the morning. 90 Tablet 3 04/11/2023 Active Amoxicillin-Pot Clavulanate 875-125 MG Oral Tablet (Augmentin)Indications :Diverticulitis of colon Take 1 Tablet by mouth in the morning and 1 Tablet before bedtime. Do all this for 10 days. 20 Tablet 0 04/15/2023 3 Active Furosemide 20 MG Oral Tablet (Lasix)Indications:Chr onic edema Take one 1-2 days per week as needed for fluid retention 20 Tablet 5 04/21/2023 Active Spironolactone 25 MG Oral Tablet (Aldactone)Indications :HTN, goal below 140/90 Take 0.5 Tablets by mouth in the morning. 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 Irritable bowel syndrome Chronic sinusitis MASSIMO on CPAP Overview: CPAP 7 cwp 3 LPM AHP documented as of this encounter (statuses as of 04/22/2023) Resolved Problems Problem Noted Date Diagnosed Date [...] as of this encounter (statuses as of 04/22/2023) Immunizations Name Administration Dates Next Due COVID-19 mRNA, LNP-s, No Pre serve, 2-Dose Series (Aumentality.cl) 02/23/2021,08/26/2020,08/05/2020 COVID-19, LNP-s, No Preserve , Jasbir-sucrose, Ages 12+ (Pfizer) 09/26/2021 COVID-19, MRNA-LNP, 23-24, P F, 30 MCG/0.3 mL, 12 YRS AND ABOVE, IM (PFIZER-Comirnaty) 03/22/2023 Covid-19, Mrna, Lnp-s, Pf, B ivalent, 30 Mcg, IM, 12 yrs and above (Aumentality.cl) 03/08/2022 H1N1 2009 Influenza, IM 07/19/2009 PPD [...] Seasonal Influenza, Quadriva lent Hd (Fluzone Hd) 04/04/2023,03/28/2021 Seasonal Influenza, Quadriva lent, No Preserve, IM [...] No 09/29/2015 documented as of this encounter Progress Notes * Junior Mcnamara DO - 04/22/2023 1:[address] [facility] [place] Nursing notes reviewed. Mood and affect: normal HPI: Marycruz Cano is a 77 year old female who presents for retina eval. No other eye complaints. Denies significant pain. Base Eye Exam Visual Acuity (Snellen - Linear) Right Left Dist cc 20/20 +1 20/80 -1 Dist ph cc NI Tonometry (Tonopen, 1:19 PM) Right Left Pressure 14 14 Pupils Pupils Right PERRL Left PERRL Visual Garduno (Counting fingers) Right Left Full Full Extraocular Movement Right Left Full, Ortho Full, Ortho Neuro/Psych Oriented x3: Yes Dilation Both eyes: 0.5% Proparacaine @ 1:17 PM Dilation #2 Both eyes: 2.5% Phenylephrine, 1.0% Mydriacyl @ 1:20 PM Dilation Comments Patient cautioned that effects of dilation may last 2-7 hours dependant upon individual reaction. It was discussed that driving while dilated is not recommended. EXTERNAL: The ocular adnexae are unremarkable. SLE: Lids/Lashes: wnl OU Conjunctiva/Sclera: quiet OU Cornea: clear OU Anterior Chamber: deep and quiet OU Iris: normal OU; no NVI OU Lens: PCIOL OU yag cap OU Dilated fundus exam OD: vitreous: +pvd optic nerve: 0.3, no edema/pallor/NVD macula: ERM vessels: wnl midperiphery: wnl periphery: no RT/RD, trace srfluid 12-2 w/ demarcation, no RT Dilated fundus exam OS: vitreous: +pvd w/ large vit debri optic nerve: 0.3, no edema/pallor/NVD macula: ERM, pseudohole configuration, irregular foveal light refled vessels: wnl midperiphery: wnl periphery: no RD, +HST 3 o'clock w/ regressed bridging vessel w/ mature laser barrier, +small hole w/ trace SRFluid 1:30 w/ laser barrier OCT Interpretation: OD: ERM, no CME/SRF, +PVD - no change OS: ERM w/ clefting/inner lamellar hole - no change A/P: 1. Epiretinal Membrane OS>OD - OD--not visually significant, observe - OS--pt had surgical eval w/ Dr. Reynoso in past and decided against surgical intervention 2. Posterior Vitreous Detachment OU -w/ mild VH OD -onset: 07/31/15 -no RT/RD -advised to return to clinic if she should experience worsening or new floaters, flashes of light, a shadow in the periphery, or decrease in vision. 3. H/o Retinal defects OU OD: -trace srfluid SN w/ demarcation line -discussed options -monitor OS: -s/p laser 05/30/09, additional laser 06/14/09 -s/p laser 03/03/14 -stable 4. High myopia OU -(-7D) -no CNV 5. DM2 -No retinopathy, no clinically significant macular edema OU -recommend HgbA1C <7, BP and lipid control. 6. Pseudophakia OU -by Tim -jovani CC: Dr. Molina PCP: Andrae Hays MD F/u w/ retina 6 months, OCT OU F/u w/ Dr. Molina routine Junior Mcnamara DO documented in this encounter Nursing Notes * Mandi Aragon MED ASSIST - 04/22/2023 1:10 PM EDT Marycruz Cano is a 77 year old year old female who presents for ERM OS > OD. Last Office Visit: 10/21/2022 (in office), Visit date not found (telemedicine) Patient currently states no change in vision. Are you diabetic? Yes. Do you check your blood sugars daily? YES. Fasting BS this mornin mg/dl. Last Hemoglobin A1C: Lab Results Component Value Date/Time HGBA1C 7.4 (H) 12/05/2022 08:14 AM HGBA1C 7.3 (H) 05/27/2022 08:34 AM HGBA1C 6.5 (H) 01/17/2022 12:27 PM HGBA1C 6.3 (H) 05/22/2020 10:25 AM HGBA1C 6.2 (H) 02/17/2020 03:29 PM HGBA1C 6.8 (H) 09/22/2019 09:[address]? yes OCT image(s) of both eyes acquired and filed/scanned into chart. documented in this encounter Plan of Treatment Upcoming Encounters Date Type Department Care Team (Late st Contact Info) Description 04/28/2023 12:35 PM EDT Office Visit Urogynecology [facility] [address] [place] [address] Neel James MD [address] [place] [address] Nurse Dick Whitfield [facility] [address] [place] [address] 06/25/2023 1:30 PM EST Office Visit Cardiology, [facility] [address] [place] [address] Macario Liu MD [address] [place] [address] 08/22/2023 11:20 AM EST Office Visit General Internal Medicine [facility] [place] [address] [facility] [place] [address] Andrae Hays MD [address] [facility] [place] [address] 10/23/2023 1:15 PM EDT Office Visit Ophthalmology, [facility] [address] [place] [address] Junior Mcnamara, DO [address] [place] [address] 11/07/2023 11:00 AM EDT Office Visit [facility] [address] [facility] [place] [id number] Idania Garner CRNP [address] [place] [address] 11/27/2023 1:45 PM EDT Office Visit [facility]ology/[facility] [address] [facility] [place] [address] Wilber Muniz MD [address] [facility] [place] [address] 12/08/2023 11:40 AM EDT Telemedicine Pulmonary Medicine, [place] [address] [place] [address] Ab Carlisle MD [address] [place] [address] Cart, Telemed Pulm Gw [address] [facility] [place] [address] Scheduled Orders Name Type Priority Associated Diagnoses Orde r Schedule RETINA SCAN DIAGNOSTIC IMAGE, POSTERIOR Procedures Routine 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 Macular puckering, bilateral Ordered: 04/22/2023 Scheduled Procedures Name Priority Associated Diagnoses Date/Ti [...] D LEVEL ONCE IN A LIFETIME-USE SMARTSET# [id number] Completed 05/27/2022, 01/18/2021, 02/10/2020, Additional history exists [...] this encounter Medical Devices Implanted Type Area Launch Check Out Device Identifier Shelf Expiration Date Model / Serial / Lot Lens 10.5 Sn60wf - [id number] Implanted:Qty: 1 on 04/27/2014 at OR [facility] Left: Eye [employer] 02/27/2019 SN60WF.105 / [id number] / Lens 12.5 Sn60wf - [id number] Implanted:Qty: 1 on 05/11/2014 at OR [facility] Right: Eye [employer] 02/27/2019 SN60WF.125 / [id number] / documented as of this encounter Visit Diagnoses Diagnosis 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 Care Teams Crystal Cutter Relationship Specialty Start Date End Date Andrae Hays MD [address] [place] [address] PCP - General Internal Medicine 04/10/16 documented as of this encounter
--- OUTSIDE RECORDS SUMMARY | 2023-05-22 13:01 | External Medical Summary ---
Author Name Unknown Address Unknown Organization : Laboratory Report Ordering Provider Test Date Status PRIYANKA GARRETT 05/17/2023 10:06:02 Final Observation Date Value Abnormality Reference (Units ) Status Alpha-1 antitrypsin 05/17/2023 10:06:02 226 Above high normal 83-199 (mg/dL) Final
Test Performed at:
[facility]
[address] [facility]
[place] [address]
Kenan Gonzalez M.D., Ph.D.,Director of Laboratories Performing Location
--- OUTSIDE RECORDS SUMMARY | 2023-05-22 13:01 | External Medical Summary | Summary of Care ---
Author Name Unknown Organization [facility] Address [address] [place] [address] Phone [phone] Care Team Providers Care Plastic Roller Name Role Phone Andrae Hays MD Primary Care Provider + Reason for Visit * Reason Comments Follow Up Encounter Details Date Type Department Care Team (Late st Contact Info) Description 04/30/2023 9:30 AM EDT Office Visit Cardiology, [facility] [address] [place] [address] Macario Liu MD [address] [place] [address] Diastolic dysfunction*; S/P ablation operation for arrhythmia; MASSIMO on CPAP; HTN, goal below 140/90 Allergies Active Allergy Reactions Criticality Noted Date [...] as of this encounter (statuses as of 04/30/2023) Medications Medication Sig Dispensed Refills Start Date End Date Status ADULT MASK DEVIIndications:Sleep apnea,Asthma, allergic as directed 1 2 07/31/2005 Active NEBULIZER COMPRESSOR KITIndications:Asthma , allergic Use as directed 1 Kit 0 04/10/2012 Active VITAMIN D 1000 UNITS PO CAPS 1 dailly 0 Active Aspirin 81 MG Oral Tablet Delayed Release Take 1 Tablet by mouth in the morning. 0 Active oxygen GAS 3 LPM bled through CPAP 7 cwp during all hours of sleep. 1 Each 0 11/17/2015 Active Respiratory Therapy Supplies (NEBULIZER AIR TUBE/PLUGS) MISCIndications:Asthm a, allergic Use as directed 1 Each 0 [...] 36 g 1 07/18/2022 Active oxygen IN GASIndications:Chroni c respiratory failure with hypoxia (HCC) 1 LPM via nasal cannula with ambulation 1 Each 0 07/23/2022 Active Breo Ellipta 200-25 MCG/ACT Inhalation Aerosol Powder Breath Activated (fluticasone furoate-vilanterol)In dications:COPD, group B, by GOLD 2017 classification ([facility]) USE 1 INHALATION BY MOUTH DAILY 180 Each 3 07/25/2022 Active Ezetimibe 10 MG Oral Tablet (Zetia) Take 1 Tablet by mouth in the morning. 0 Active metFORMIN HCl 500 MG Oral Tablet (Glucophage)Indicatio ns:Type 2 diabetes mellitus with hemoglobin A1c goal of less than 7.0% ([facility]) TAKE 1 TABLET BY MOUTH DAILY WITH BREAKFAST 90 Tablet 2 08/31/2022 Active Losartan Potassium 100 MG Oral Tablet (Cozaar)Indications:H TN, goal below 140/90 TAKE 1 TABLET BY MOUTH ONCE DAILY 90 Tablet 3 10/10/2022 Active Hydrocortisone (Perianal) 2.5 % External Cream (Anusol-HC)Indication s:Hemorrhoids, unspecified hemorrhoid type Administer into the rectum 2 times a day. 28 g 3 10/12/2022 Active Levalbuterol HCl 0.63 MG/3ML Inhalation Nebulization Solution (Xopenex) Inhale 3 mL via nebulizer every 6 hours as needed for Wheezing or Shortness of Breath. Dx J44.9 270 mL 3 11/22/2022 Active Flecainide Acetate 50 MG Oral Tablet (Tambocor)Indications :PSVT (paroxysmal supraventricular tachycardia),AVNRT (AV carleen re-entry tachycardia) TAKE ONE TABLET BY MOUTH TWICE A DAY (MORNING AND BEFORE BEDTIME) 180 Tablet 3 01/01/2023 Active Famotidine 20 MG Oral Tablet (Pepcid)Indications:G ERD (gastroesophageal reflux disease) TAKE 1 TABLET BY MOUTH TWICE DAILY 180 Tablet 3 01/10/2023 Active Contour Next Test In Vitro Strip (Glucose Blood)Indications:Typ e 2 diabetes mellitus with hemoglobin A1c goal of less than 7.0% ([facility]) Test twice daily as directed. Dx E11.9. 100 Strip 5 01/21/2023 Active Furosemide 20 MG Oral Tablet (Lasix)Indications:Ch ronic edema Take one 1-2 days per week as needed for fluid retention 20 Tablet 5 04/21/2023 Active Spironolactone 25 MG Oral Tablet (Aldactone)Indication s:HTN, goal below 140/90 Take 0.5 Tablets by mouth in the morning. 45 Tablet 1 04/21/2023 Active Metoprolol Succinate ER 25 MG Oral Tablet Extended Release 24 Hour (Toprol XL) Take 1 Tablet by mouth in the morning. 90 Tablet 3 04/30/2023 Active Verapamil HCl ER 180 MG Oral Tablet Extended Release (Isoptin SR)Indications:SVT (supraventricular tachycardia),HTN, goal below 140/90 Take 1 Tablet by mouth in the morning. 90 Tablet 3 04/11/2023 04/30/20 23 Discontinu ed(Medicat ion/Dose Changed) documented as of this encounter (statuses as of 04/30/2023) Active Problems Problem Noted Date Diagnosed Date [...] replacement status 03/28/2010 Overview: left Dr Doherty, [facility] Type 2 diabetes mellitus wit h hemoglobin A1c goal of less than 7.0% 06/07/2009 Overview: ICD-10 update of inactive term Vitamin D deficiency 05/25/2009 Primary localized osteoarthrosis, lower leg 03/01 Osteoporosis 07/14/2002 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 Overview: [place] 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 Irritable bowel syndrome Chronic sinusitis MASSIMO on CPAP Overview: CPAP 7 cwp 3 LPM AHP documented as of this encounter (statuses as of 04/30/2023) Resolved Problems Problem Noted Date Diagnosed Date [...] with exacerbation 01/23/201504/29 Senile nuclear cataract 02/17/2014 0612/2018 HTN, goal below 140/80 02/17/201206/28 Overview: Per [...] as of this encounter (statuses as of 04/30/2023) Immunizations Name Administration Dates Next Due COVID-19 mRNA, LNP-s, No Pre serve, 2-Dose Series (Lamoda) 02/23/2021,08/26/2020,08/05/2020 COVID-19, LNP-s, No Preserve , Jasbir-sucrose, Ages 12+ (Pfizer) 09/26/2021 COVID-19, MRNA-LNP, 23-24, P F, 30 MCG/0.3 mL, 12 YRS AND ABOVE, IM ([employer]-Comirnat) 03/22/2023 Covid-19, Mrna, Lnp-s, Pf, B ivalent, [...] 30 Q uit: 2016 Smokeless Tobacco: Never Tobacco Cessation:Counseling Given: Not Answered Alcohol Use Standard Drinks/Week Comments No 0 [...] on file documented as of this encounter Last Filed Vital Signs Vital Sign Reading Time Taken Comments Blood Pressure 136/80 04/30/2023 9:40 AM EDT Pulse 88 04/30/2023 9:40 AM EDT Temperature - - Respiratory Rate 18 04/30/2023 9:40 AM EDT Oxygen Saturation - - Inhaled Oxygen Concentration - - Weight 103.3 kg (227 lb 11.2 oz) 04/30/2023 9:40 AM EDT Height - - Body Mass Index 40.98 04/21/2023 9:25 AM EDT documented in this encounter Functional Status Functional Status Response [...] as of this encounter Progress Notes * Macario Liu MD - 04/30/2023 9:30 AM EDT April 30, 2023 Cardiology Follow Up Referring Provider: PCP: ANDRAE [address] [place], [place] [id number] Chief Complaint: Atrial arrhythmias SUBJECTIVE: Marycruz Cano is a 78 year old year old female with ongoing cardiac issues 1. Paroxysmal supraventricular tachycardia/AV carleen reentry tachycardia status post incomplete SVT ablation January 13, 2019 (Dr. Allen) and incomplete ablation in 03/[address] Camp 2. Obstructive sleep apnea on CPAP 3. Atherosclerotic carotid disease status post carotid endarterectomy 4. Chronic obstructive lung disease 5. Hypertension 6. Coronary angiography November 28, 2020, widely patent coronary anatomy (false- positive stress nucleartesting) 7. Hyperlipidemia with poor statin tolerance Patient presents today in close clinical follow-up. Patient concerned regarding multiple drug drug interactions recent difficulties with declining exercise tolerance and edema. Has been using spironolactone at half a tablet per day. Only used 1 furosemide. Wearing oxygen sporadically. Declined use of Jardiance Blood sugars variable No chest pains no tachy palpitations no syncope or near syncope. Patient presents with multiple online investigations. Concerned about EKG and echocardiographic findings A Complete Review of Systems is as stated above or negative. Patient Active Problem List Diagnosis Code MGUS (monoclonal gammopathy of unknown significance) D47.2 Osteoporosis M81.0 Irritable bowel syndrome K58.9 Chronic sinusitis J32.9 Primary localized osteoarthrosis, lower leg M17.10 Vitamin D deficiency E55.9 Type 2 diabetes mellitus with hemoglobin A1c goal of less than 7.0% ([facility]) E11.9 Knee joint replacement status Z96.659 Allergic rhinitis due to pollen J30.1 Diverticulosis of colon K57.30 GERD (gastroesophageal reflux disease) K21.9 MASSIMO on CPAP G47.33 Asthma, moderate persistent J45.40 S/P carotid endarterectomy Z98.890 Carotid stenosis, non-symptomatic I65.29 Dyslipidemia, goal LDL below 100 E78.5 Nocturnal hypoxia G47.34 Dependence on nocturnal oxygen therapy Z99.81 HTN, goal below 140/90 I10 Diastolic dysfunction I51.89 History of cataract Z86.69 History of epistaxis Z87.898 Diabetic polyneuropathy ([facility]) E11.42 DISH (diffuse idiopathic skeletal hyperostosis) M48.10 RLS (restless legs syndrome) G25.81 Major depressive disorder with single episode, in partial remission ([facility]) F32.4 Paroxysmal SVT (supraventricular tachycardia) I47.10 Statin intolerance Z78.9 Bronchiectasis without complication ([facility]) J47.9 History of tobacco abuse Z87.891 At risk for aspiration Z91.89 Dysphagia R13.10 Pulmonary nodules R91.8 COPD, group B, by GOLD 2017 classification ([facility]) J44.9 S/P ablation operation for arrhythmia Z98.890, Z86.79 Angiomyolipoma of right kidney D17.71 AVNRT (AV carleen re-entry tachycardia) I47.19 Obesity, morbid (more than 100 lbs over ideal weight or BMI > 40) ([facility]) E66.01 Lung nodule R91.1 S/P RF ablation operation for arrhythmia Z98.890, Z86.79 Chronic obstructive pulmonary disease with hypoxia ([facility]) J44.9 Hidradenitis suppurativa L73.2 Review of patient's allergies indicates: Allergen Reactions Daniel Inhibitors Cough Saccharin Cough Related to sulfa allergy Sulfa Antibiotics Hives hives as child, saccharin Cefaclor hives Erythromycin Hives Etodolac Does not remember Hyoscyamine Other (Please comment) hallucinations Levofloxacin Hemihydrate "brain fog" Sulfites wheezing Ipratropium Other (Please comment) Says she feels her lungs get itchy when she uses it Sorbitol Sugar alcohol Current Outpatient Medications Medication Sig Dispense Refill VITAMIN D 1000 UNITS PO CAPS 1 dailly Aspirin 81 MG Oral Tablet Delayed Release Take 1 Tablet by mouth in the morning. acetaminophen (TYLENOL) 500 MG Tablet Take 1 Tablet by mouth in the morning and 1 Tablet before bedtime. 100 Tab 0 Simethicone 125 MG CAPS Take 1 Tab by mouth as needed. Melatonin ER 1 MG TBCR Take 1 Tab by mouth at bedtime. Centrum Silver 50+Women Oral Tablet Take 1 Tab by mouth daily. Fexofenadine HCl 180 MG Oral Tablet Take 1 Tablet by mouth at bedtime. Mupirocin 2 % External Ointment (Bactroban) NEEDED Albuterol Sulfate HFA 108 (90 Base) MCG/ACT Inhalation Aerosol Solution Inhale 2 Puffs by mouth every 4 hours as needed for Cough, Shortness of Breath or Wheezing. 36 g 1 oxygen IN GAS 1 LPM via nasal cannula with ambulation 1 Each 0 Breo Ellipta 200-25 MCG/ACT Inhalation Aerosol Powder Breath Activated (fluticasone furoate-vilanterol) USE 1 INHALATION BY MOUTH DAILY 180 Each 3 metFORMIN HCl 500 MG Oral Tablet (Glucophage) TAKE 1 TABLET BY MOUTH DAILY WITH BREAKFAST 90 Tablet2 Losartan Potassium 100 MG Oral Tablet (Cozaar) TAKE 1 TABLET BY MOUTH ONCE DAILY 90 Tablet 3 Hydrocortisone (Perianal) 2.5 % External Cream (Anusol-HC) Administer into the rectum 2 times a day. 28 g 3 Levalbuterol HCl 0.63 MG/3ML Inhalation Nebulization Solution (Xopenex) Inhale 3 mL via nebulizer every 6 hours as needed for Wheezing or Shortness of Breath. Dx J44.9 270 mL 3 Flecainide Acetate 50 MG Oral Tablet (Tambocor) TAKE ONE TABLET BY MOUTH TWICE A DAY (MORNING AND BEFORE BEDTIME) 180 Tablet 3 Famotidine 20 MG Oral Tablet (Pepcid) TAKE 1 TABLET BY MOUTH TWICE DAILY 180 Tablet 3 Furosemide 20 MG Oral Tablet (Lasix) Take one 1-2 days per week as needed for fluid retention 20 Tablet 5 Spironolactone 25 MG Oral Tablet (Aldactone) Take 0.5 Tablets by mouth in the morning. 45 Tablet 1 Metoprolol Succinate ER 25 MG Oral Tablet Extended Release 24 Hour (Toprol XL) Take 1 Tablet by mouth in the morning. 90 Tablet 3 ADULT MASK WANG as directed 1 2 NEBULIZER COMPRESSOR KIT Use as directed 1 Kit 0 oxygen GAS 3 LPM bled through CPAP 7 cwp during all hours of sleep. 1 Each 0 Respiratory Therapy Supplies (NEBULIZER AIR TUBE/PLUGS) MISC Use as directed 1 Each 0 Blood Glucose Monitoring Suppl (CONTOUR NEXT ONE) KIT Use as directed. Dx E11.9 1 Kit 0 Accu-Chek FastClix Lancets MISC Test twice daily as directed. Pt has this style lancing device at home already. DX E11.9 100 Each 5 Ezetimibe 10 MG Oral Tablet (Zetia) Take 1 Tablet by mouth in the morning. (Patient not taking: Reported on 04/30/2023) Contour Next Test In Vitro Strip (Glucose Blood) Test twice daily as directed. Dx E11.9. 100 Strip 5 No current facility-administered medications for this visit. OBJECTIVE/PHYSICAL EXAMINATION: BP 136/80 (BP Site: Left Arm, BP Position: Sitting, BP Cuff Size: Large) | Pulse 88 | Resp 18 | Wt 103.3 kg (227 lb 11.2 oz) | BMI 40.98 kg/m | BSA 2.13 m General: Obese, Age appropriate female in no acute distress Head: normocephalic, no masses, lesions, tenderness or abnormalities Eyes: conjunctiva are pink and non-injected, sclera clear Throat: clear Nares: without discharge Neck: supple, no adenopathy, normal jugular venous pulse, no hepatojugular reflux, no carotid bruits Chest: normal shape and normal respiratory effort Lungs: clear to auscultation and percussion Cardiac Exam: - regular rate & rhythm, no murmur, gallop or rub - normal S-1, normal S-2 Abdomen: abdomen soft, moderate size panniculus non-tender, no abnormal masses, no hepatosplenomegaly, no abdominal bruit, no femoral bruit Musculoskeletal: no gait disturbance, no joint inflammation, no deforming arthritis Extremities: 1+ lower extremity edema right 2+ left edema, no cyanosis, pulses intact 2+/4 Neuro: grossly normal exam Data: Carotid duplex June 11, 2022 Impression: Right carotid artery duplex examination indicates evidence of less than 50% stenosis of the internal carotid artery. Left carotid artery duplex examination indicates evidence of less than 50% stenosis of the internalcarotid artery. Abnormal oscillating flow identified in the left subclavian artery could indicate a more proximal stenosis/occlusion. Echocardiogram April 10, 2023 The examination is limited quality but adequate for evaluation of the referral indication. The LV wall thickness is moderately increased (concentric). The left ventricular wall motion is normal. The qualitative LV ejection fraction is >70% (hyperdynamic). The left ventricular diastolic function is mildly abnormal (grade I). Moderate aortic valve sclerosis is present. Aortic stenosis is absent. There is no evidence of pulmonary hypertension. Compared to the previous study dated 10/26/2020, there has been no significant interval change. 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 Patient will discuss further diabetic medications with PCP Patient to resume Zetia once GI issues stable Discussed management of diastolic dysfunction and arrhythmias. Will discontinue verapamil and retrial beta-mik with metoprolol succinate 25 mg daily Patient report clinical response Continue daily weights sodium and fluid restriction DISPOSITION: Return 6 months Macario Liu MD Cardiology, [facility] [address] [place] [place] [address] I spent a total of 30-39 minutes (exact time 35 mins) on the date of service in preparation, delivery, and documentation of the care provided to Marycruz Cano excluding any time spent in the performance of separately billed services. documented in this encounter Nursing Notes * Aimee Medina CMA - 04/30/2023 9:32 AM EDT Examination Room: 13 Name: Marycruz Cano Date of : (1945). Reason for Visit: f/u Interim Hospitalization(s): none Problems/Concerns: Occasional flutter palpitations, non-sustained. Worsening LE edema, L>R. Doeshave pitting. Chest Pain/SOB: Denies CP or worsening SOB. Dyspnea on minimal exertion. [facility] Discussed: Not applicable [employer] [facility] is a way you can talk to your provider online through e-mail. Would you like to sign up? I can activate it for you? ALREADY ACTIVE Patient was instructed to not get up on the exam table until directed and assisted by their provider; patient is to remain seated in the chair/ wheelchair/ exam table for fall prevention and safety reasons. Patient is aware to have assistance to step down off exam table with personnel. Patient voiced full comprehension of instructions. documented in this encounter Plan of Treatment Upcoming Encounters Date Type Department Care Team (Late st Contact Info) Description 05/27/2023 1:35 PM EST Office Visit Urogynecology Jim Villafanas [address] [place] [address] Neel James MD [address] [place] [address] Nurse Dick Whitfield [address] [place] [address] 07/21/2023 3:00 PM EST Office Visit Cardiology, [facility] [address] [place] [address] Kamilla Poole PA-C [address] [place] [address] 08/22/2023 11:20 AM EST Office Visit General Internal Medicine [facility] [address] [facility] [place] [address] [facility] [address] 10/23/2023 1:15 PM EDT Office Visit Ophthalmology, [facility] [address] [place] [address] Junior Mcnamara DO [address] [place] [address] 11/07/2023 11:00 AM EDT Office Visit [facility] [place] [address] [place] [phone] Idania Garner CRNP [address] [place] [address] 11/27/2023 1:45 PM EDT Office Visit Hematology/Oncology [facility] [address] [facility] [place], [place] [address] Wilber Muniz MD [address] [facility] [place], [place] [address] 12/08/2023 11:40 AM EDT [facility] [address] [place] [address] Ab Carlisle MD [address] [place] [address] Cart, [facility] [address] [facility] [address] Scheduled Procedures Name Priority Associated Diagnoses Date/Ti me COLONOSCOPY FLEXIBLE PROXIMA L DIAGNOSTIC Recall Hx of diverticulitis of colon Health Maintenance Due Date Last Done Comments Alpha-1 Antitrypsin 1962 Zoster Vaccines (2 of 2) 11/02/2008 09/07/2008, 08/28 COLONOSCOPY-EVERY 5 YRS AGES 18-100 07/23/2016 07/23/2011, 09/01/2001, 06/26/2001 *BISPHONATE OR OTHER ACCEPTABLE MEDICATION NEEDED FOR OSTEOPOROSIS (REFER TO SMARTSET #1146) 12/06/2018 Diabetic Eye Exam 09/28/2022 09/28/2021, , 08/25/2020, Additional history exists [...] D LEVEL ONCE IN A LIFETIME-USE SMARTSET# [id number] Completed 05/27/2022, 01/18/2021, 02/10/2020, Additional history exists [...] this encounter Medical Devices Implanted Type Area Land Sales Agent Device Identifier Shelf Expiration Date Model / Serial / Lot Lens 10.5 Sn60wf - [id number] Implanted:Qty: 1 on 04/27/2014 at OR [facility] Left: Eye [employer] 02/27/2019 SN60WF.105 / [id number] / Lens 12.5 Sn60wf - [id number] Implanted:Qty: 1 on 05/11/2014 at OR [facility] Right: Eye [employer] 02/27/2019 SN60WF.125 / [id number] / documented as of this encounter Visit Diagnoses Diagnosis Diastolic dysfunction- Primary Heart disease, unspecified S/P ablation operation for arrhythmia Other postprocedural status MASSIMO on CPAP Obstructive sleep apnea (adult) (pediatric) HTN, goal below 140/90 Unspecified essential hypertension documented in this encounter Advance Directives Latest [...] and were consensually agreed upon. Care Teams Plastic Roller Relationship Specialty Start Date End Date Andrae Hays MD [address] [place] [address] PCP - General Internal Medicine 04/10/16 documented as of this encounter
--- OUTSIDE RECORDS SUMMARY | 2023-05-22 13:01 | External Medical Summary ---
Author Name Unknown Address Unknown Organization [id number]:[facility] [place] [address] [place] [address] Laboratory Report Ordering Provider Test Date Status PRIYANKA GARRETT 05/17/2023 10:04:46 Final Deficient: <20 ng/mL
Ins ufficient: 20-29 ng/mL
Recommended/Optimum:30-50 ng/mL

Vitamin D intoxication is rare. If suspicious of Vitamin D toxicity, evaluation of serum Calcium and PTH is recommended. Observation Date Value Abnormality Reference (Units ) Status 25-OH Vitamin D total 05/17/2023 10:04:46 43 >19 (ng/mL) Final Performing Location [facility] [address] [place] [address]
--- OUTSIDE RECORDS SUMMARY | 2023-05-22 13:01 | External Medical Summary | Summary of Care ---
Author Name Unknown Organization [facility] Address [address] [place] [address] Phone [phone] Care Team Providers Care Discovery Guide Name Role Phone Andrae Hays MD Primary Care Provider + Reason for Visit * Reason Comments Outpatient Testing Encounter Details Date Type Department Care Team (Late st Contact Info) Description 05/17/2023 10:00 AM EST Laboratory Laboratory, [facility] [address] [place] [address] [facility] [address] [place] [address] Type 2 diabetes mellitus with hemoglobin A1c goal of less than 7.0% ([facility]); Vitamin D deficiency; Loose stools; Chronic obstructive pulmonary disease with hypoxia ([facility]) Allergies Active Allergy Reactions Criticality Noted Date [...] as of this encounter (statuses as of 05/17/2023) Medications Medication Sig Dispensed Refills Start Date [...] group B, by GOLD 2017 classification ([facility]) USE 1 INHALATION BY MOUTH DAILY 180 Each 3 07/25/2022 Active Ezetimibe 10 MG Oral Tablet (Zetia) Take 1 Tablet by mouth in the morning. 0 Active metFORMIN HCl 500 MG Oral Tablet (Glucophage)Indication s:Type 2 diabetes mellitus with hemoglobin A1c goal of less than 7.0% ([facility]) TAKE 1 TABLET BY MOUTH DAILY WITH [...] A1c goal of less than 7.0% ([facility]) Test twice daily as directed. Dx E11.9. 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 Hemorrhoids, external without complications 09/24/2017 documented as of this encounter (statuses as of 05/17/2023) Immunizations Name Administration Dates Next Due COVID-19 mRNA, LNP-s, No Pre serve, 2-Dose Series ([employer]) 02/23/2021,08/26/2020,08/05/2020 COVID-19, LNP-s, No Preserve , Jasbir-sucrose, Ages 12+ (Pfizer) 09/26/2021 COVID-19, MRNA-LNP, 23-24, P F, 30 MCG/0.3 mL, 12 YRS AND ABOVE, IM ([employer]oon[employer]-Comirnat) 03/22/2023 Covid-19, Mrna, Lnp-s, Pf, B ivalent, [...] Urogynecology Jim Whitfield [address] [place] [address] Neel James MD [address] [place] [address] Nurse Dick Whitfield [address] [place] [address] 07/21/2023 3:00 PM EST Office Visit Cardiology, [facility] [address] [facility] [address] Kamilla Poole PA-C [address] [facility] [place] [address] 08/22/2023 11:20 AM EST Office Visit General Internal Medicine [facility] [address] [facility] [place] [address] Andrae Hays MD [address] [facility] [place] [address] 10/23/2023 1:15 PM EDT Office Visit Ophthalmology, [facility] [address] [facility] [place] [address] Junior Mcnamara DO [address] [facility] [place] [address] 11/07/2023 11:00 AM EDT Office Visit Sleep Disorders Ctr [facility] [place] [phone] Idania Garner CRNP [address] [facility] [place] [address] 11/27/2023 1:45 PM EDT Office Visit Hematology/Oncology [facility] [address] [facility] [place] [address] Wilber Muniz MD [address] [facility] [place] [address] 12/08/2023 11:40 AM EDT Telemedicine Pulmonary Medicine, [place] [address] [place] [address] Ab Carlisle MD [address] [place] [address] Cart, Telemed Pulm [address] [facility] [place] [address] Pending Results Name Type Priority Associated Diagnoses Date /Time HEMOGLOBIN A1C Lab Routine Type 2 diabetes mellitus with hemoglobin A1c goal of less than 7.0% (HCC) 05/17/2023 10:04 AM EST 25-HYDROXY VITAMIN D Lab Routine Vitamin D deficiency 05/17/2023 10:04 AM EST CBC WITH WBC DIFFERENTIAL Lab Routine Loose stools 05/17/2023 10:04 AM EST COMPREHENSIVE METABOLIC PANEL Lab Routine Loose stools 05/17/2023 10:04 AM EST CBC Lab Routine Loose stools 05/17/2023 10:04 AM EST DIFFERENTIAL, AUTOMATED Lab Routine Loose stools 05/17/2023 10:04 AM EST [id number], QN Lab Routine Chronic obstructive pulmonary disease with hypoxia (HCC) 05/17/2023 10:06 AM EST Scheduled Procedures Name Priority Associated [...] 06/06/2023 12/05/2022, 05/01, 01/17/2022, Additional history exists Diabetic Eye Exam 09/14/2023 09/13/2022, , 03/22/2022, Additional history exists Depression Screening 11/20/2023 11/19/2022 B-12 12/06/2023 12/05/2022, 12/29, 10/18/2021, Additional history exists GFR 04/04/2024 04/04/2023, 06/01/2023, 08/23/2022, Additional history exists Diabetic Foot Exam 04/21/2024 04/21/2023, 1 07/16/2021, 04/16/2021, Additional history exists O2 ASSESSMENT COMPLETED IN PAST YEAR FOR COPD 04/21/2024 05/17/2023 DTaP,Tdap,and Td Vaccines (3 - Td or Tdap) 12/09/2031 12/08/2021, 02/11/2008, 10/16/1992 Hepatitis B Completed 05/14/2002, 11/28, 10/15/2001, Additional history exists DXA Scan Discontinued 08/02/2015, 07/02, 07/29/2011, Additional history exists Pneumococcal Vaccine: 65+ Years Completed 09/24/2017, 04/28/2015, 03/23/2009 VITAMIN D LEVEL ONCE IN A LIFETIME-USE SMARTSET# [id number] Completed 05/27/2022, 01/18/2021, 02/10/2020, Additional history exists COVID-19 Vaccine Completed 03/22/2023, 02/2022, 09/26/2021, Additional history exists Influenza Vaccine (FLU shot) Completed 04/04/2023, 03/07/2022, 03/07/2022, Additional history exists GARDASIL-HPV IMMUNIZATION SERIES Aged Out No longer eligible based on patient's age to complete this topic MENINGOCOCCAL (MENACTRA/MENVEO) Aged Out No longer eligible based on patient's age to complete this topic documented as of this encounter Medical Devices Implanted Type Area Director Dance Device Identifier Shelf Expiration Date Model / Serial / Lot Lens 10.5 Sn60wf - [id number] Implanted:Qty: 1 on 04/27/2014 at OR [facility] Left: Eye [employer] 02/27/2019 SN60WF.105 / [id number] / Lens 12.5 Sn60wf - [id number] Implanted:Qty: 1 on 05/11/2014 at OR [facility] Right: Eye [employer] 02/27/2019 SN60WF.125 / [id number] / documented as of this encounter Visit Diagnoses Diagnosis Type 2 diabetes mellitus with hemoglobin A1c goal of less than 7.0% (HCC) Vitamin D deficiency Unspecified vitamin D deficiency Loose stools Abnormal feces Chronic obstructive pulmonary disease with hypoxia (HCC) documented in this encounter Advance Directives Latest [...] and were consensually agreed upon. Care Teams Discovery Guide Relationship Specialty Start Date End Date Andrae Hays MD [address] [place] [address] PCP - General Internal Medicine 04/10/16 documented as of this encounter
--- OUTSIDE RECORDS SUMMARY | 2023-05-22 13:01 | External Medical Summary ---
Author Name Unknown Address Unknown Organization [id number]:[facility] [address] [place] [address] Laboratory Report Ordering Provider Test Date Status PRIYANKA GARRETT 05/17/2023 10:04:46 Final Observation Date Value Abnormality Reference (Units ) Status BUN 05/17/2023 10:04:46 18 6-20 (mg/dL) Final Creatinine 05/17/2023 10:04:46 0.8 0.5-1.0 (mg/dL) Final Glomerular filtration rate/1.73 sq M.predicted [Volume Rate/Area] in Serum, Plasma or Blood by Creatinine-based formula (CKD-EPI) 05/17/2023 10:04:46 78 >=60 (mL/min) Final eGFR is calculated based on the CKD-EPI 2020 equation SODIUM 05/17/2023 10:04:46 139 135-146 (m mol/L) Final Potassium 05/17/2023 10:04:46 5.3 Above high normal 3. 5-5.1 (mmol/L) Final Cl 05/17/2023 10:04:46 99 98-107 (mm ol/L) Final CO2 05/17/2023 10:04:46 26 22-32 (mmo l/L) Final Anion gap 05/17/2023 10:04:46 14 7-15 (mmol /L) Final Glucose 05/17/2023 10:04:46 175 Above high normal 70 -120 (mg/dL) Final Albumin 05/17/2023 10:04:46 4.4 3.8-5.0 (g /dL) Final AST (Aspartate aminotransferase) 05/17/2023 10:04:46 14 10-35 (U/L) Fin al Alk Phos 05/17/2023 10:04:46 149 Above high normal 35 -130 (U/L) Final Bilirubin, Total 05/17/2023 10:04:46 0.5 <=1 .2 (mg/dL) Final Calcium 05/17/2023 10:04:46 10.3 Above high normal 8. 4-10.2 (mg/dL) Final Protein 05/17/2023 10:04:46 7.5 6.0-8.3 (g /dL) Final ALT (Alanine aminotransferase) 05/17/2023 10:04:46 18 10-35 (U/L) Ildefonso hull Per[facility] Location [facility] [address] [facility] [address]
--- OUTSIDE RECORDS SUMMARY | 2023-05-22 13:01 | External Medical Summary ---
Author Name Unknown Address Unknown Organization [id number]:[facility] - [address] [place] [id number] Laboratory Report Ordering Provider Test Date Status TAMIALFREDITO 05/19/2023 07:36:54 Final Observation Date Value Abnormality Reference (Units) Status Bacteria identified in Specimen by Culture 05/19/2023 07:36:54 No significant growth Final Test: Culture, Urine, Quanti tative
Specimen Source: Urine, Clean Catch
Specimen Type: Urine
Specimen Date: 05/19/2023 7:36 AM
Result Date: 05/20/2023 9:49 AM
Result Status: Final result
Resulting Lab: [facility]
[address]
[place] [id number]

CULTURE

No significant growth

null Performing Location [facility] - [address] [facility] [place] [address]
--- OUTSIDE RECORDS SUMMARY | 2023-05-22 13:01 | External Medical Summary ---
Author Name Unknown Address Unknown Organization [id number]:[facility] [address] [place] [address] Laboratory Report Ordering Provider Test Date Status PRIYANKA GARRETT 05/19/2023 07:36:54 Final Observation Date Value Abnormality Reference (Units ) Status Color of Urine by Auto 05/19/2023 07:36:54 Yellow Colorless, Light Yellow, Yellow, Dark Yellow Final Clarity, Urine 05/19/2023 07:36:54 Cloudy Abnormal Clear Final Glucose [Mass/volume] in Urine by Automated test strip 05/19/2023 07:36:54 Negative Negative (mg/dL) Final Bilirubin.total [Presence] in Urine by Automated test strip 05/19/2023 07:36:54 Negative Negative Final Ketones [Mass/volume] in Urine by Automated test strip 05/19/2023 07:36:54 Negative Negative (mg/dL) Final Specific gravity, Urine 05/19/2023 07:36:54 1.030 1.003-1.030 Final Hemoglobin [Presence] in Urine by Automated test strip 05/19/2023 07:36:54 Moderate Abnormal Negative Final pH, Urine 05/19/2023 07:36:54 5.5 5.0-7.5 (Units) Final Protein [Mass/volume] in Urine by Automated test strip 05/19/2023 07:36:54 Trace Abnormal Negative (mg/dL) Final Urobilinogen [Mass/volume] in Urine by Automated test strip 05/19/2023 07:36:54 0.2 0.2, 1.0 (mg/dL) Final Nitrite [Presence] in Urine by Automated test strip 05/19/2023 07:36:54 Negative Negative Final Leukocyte esterase [Presence] in Urine by Automated test strip 05/19/2023 07:36:54 Small Abnormal Negative Final RBC, Urine 05/19/2023 07:36:54 10-19 Abnormal 0-2 (/HPF) Final WBC, Urine 05/19/2023 07:36:54 50+ Abnormal 0-2 (/HPF) Final Bacteria [#/area] in Urine sediment by Microscopy high power field 05/19/2023 07:36:54 0-25 0-25 (/HPF) Final CULTURE, URINE - [facility] 05/19/2023 07:36:54 Final Quantitative urine culture t o be performed Performing Location [facility] [address] [place] [address]
--- OUTSIDE RECORDS SUMMARY | 2023-05-22 13:01 | External Medical Summary | Summary of Care ---
Author Name Unknown Organization [facility] Address [address] [place] [address] Phone [phone] Care Team Providers Care Instructor Programmable Controllers Name Role Phone Andrae Hays MD Primary Care Provider + Reason for Visit * Reason Comments Follow Up Discuss bowel and bl adder issues. Having a lot of urinary frequency and lower abdominal/pubic pain. Sometimes there is a pink tinge on toilet paper when she wipes. Has been going on for about a month. Encounter Details Date Type Department Care Team (Latest Contact Info) Description 05/17/2023 9:40 AM EST Office Visit Family Practice [facility] [address] [place] [address] [address] Andrae Hays MD [address] [place] [address] Urinary frequency*; Loose stools; Acute diverticulitis Allergies Active Allergy Reactions Criticality Noted Date [...] ications:COPD, group B, by GOLD 2017 classification ([facility]) USE 1 INHALATION BY MOUTH DAILY 180 Each 3 07/25/2022 Active Ezetimibe 10 MG Oral Tablet (Zetia) Take 1 Tablet by mouth in the morning. 0 Active metFORMIN HCl 500 MG Oral Tablet (Glucophage)Indication s:Type 2 diabetes mellitus with hemoglobin A1c goal of less than 7.0% ([facility]) TAKE 1 TABLET BY MOUTH DAILY [...] [facility]) Test twice daily as directed. Dx [...] replacement status 03/28/2010 Overview: left Dr Doherty, [facility] Type 2 diabetes mellitus wit h hemoglobin A1c goal of less than 7.0% 06/07/2009 Overview: ICD-10 update of inactive term Vitamin D deficiency 05/25/2009 Primary localized osteoarthrosis, lower leg 03/01 Osteoporosis 07/14/2002 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 Overview: [place] IgG monoclonol spike monoclonal gammopathy of undetermined [...] mRNA, LNP-s, No Pre serve, 2-Dose Series (BlueVine) 02/23/2021,08/26/2020,08/05/2020 COVID-19, LNP-s, No Preserve , Jasbir-sucrose, Ages 12+ (Pfizer) 09/26/2021 COVID-19, MRNA-LNP, 23-24, P F, 30 MCG/0.3 mL, 12 YRS AND ABOVE, IM (PFIZER-Comirnaty) 03/22/2023 Covid-19, Mrna, Lnp-s, Pf, B ivalent, 30 Mcg, IM, 12 yrs and above (BlueVine) 03/08/2022 H1N1 2009 Influenza, IM 07/19/2009 PPD [...] Sign Reading Time Taken Comments Blood Pressure 120/66 05/17/2023 9:24 AM EST Pulse 90 05/17/2023 9:24 AM EST Temperature 36.7 C (98.1 F) 05/17/2023 9:24 AM ES T Respiratory Rate - - Oxygen Saturation 94% 05/17/2023 9:24 AM EST Inhaled Oxygen Concentration - - Weight 102.9 kg (226 lb 14.4 oz) 05/17/2023 9:24 AM EST Height - - Body Mass Index 40.84 04/21/2023 9:25 AM EDT documented in this [...] as of this encounter Progress Notes * Andrae Hays MD - 05/17/2023 9:49 AM EST Chief Complaint Patient presents with Follow Up Discuss bowel and bladder issues. Having a lot of urinary frequency and lower abdominal/pubic pain.Sometimes there is a pink tinge on toilet paper when she wipes. Has been going on for about a month. SUBJECTIVE: Marycruz Cano is a 78 year old female with PMH as below who presents for acute Urinary urgency and feels a little pain when bladder contracts, has had off/on since , butnoticing urinary frequency/urgency now. Sometimes blood tinged on bad. No known vaginal bleeding. No fevers, vomiting. Was really bad urgency last weekend, better now 2. Bowels, still loose "pudding" at time, no dean blood. Occasional pain in abdomen, but better onabx for presume diverticulitis. No vomiting, fevers. Finishing augmentin, on day 03/09 Patient Active Problem List Diagnosis Code MGUS (monoclonal gammopathy of unknown significance) D47.2 Osteoporosis M81.0 Irritable bowel syndrome K58.9 Chronic sinusitis J32.9 Primary localized osteoarthrosis, lower leg M17.10 Vitamin D deficiency E55.9 Type 2 diabetes mellitus with hemoglobin A1c goal of less than 7.0% ([facility]) E11.9 Knee joint replacement status Z96.659 Allergic [...] Z86.69 History of epistaxis Z87.898 Diabetic polyneuropathy (HCC) E11.42 DISH (diffuse idiopathic skeletal hyperostosis) M48.10 RLS (restless legs syndrome) G25.81 Major depressive disorder with single episode, in partial remission ([facility]) F32.4 Paroxysmal SVT (supraventricular tachycardia) I47.10 Statin intolerance Z78.9 Bronchiectasis without complication ([facility]) J47.9 History of tobacco abuse Z87.891 At risk for aspiration Z91.89 Dysphagia R13.10 Pulmonary nodules R91.8 COPD, group B, by GOLD 2017 classification ([facility]) J44.9 S/P ablation operation for arrhythmia Z98.890, Z86.79 Angiomyolipoma of right kidney D17.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 oxygen GAS 3 LPM bled through CPAP 7 cwp during all hours of sleep. 1 Each 0 Respiratory Therapy Supplies (NEBULIZER AIR TUBE/PLUGS) MISC Use as directed 1 Each 0 Blood Glucose Monitoring Suppl (CONTOUR NEXT ONE) KIT Use as directed. Dx E11.9 1 Kit 0 acetaminophen (TYLENOL) 500 MG Tablet Take 1 Tablet by mouth in the morning and 1 Tablet before bedtime. 100 Tab 0 Simethicone 125 MG CAPS Take 1 Tab by mouth as needed. Melatonin ER 1 MG TBCR Take 1 Tab by mouth at bedtime. Accu-Chek FastClix Lancets MISC Test twice daily as directed. Pt has this style lancing device at home already. DX E11.9 100 Each 5 Centrum Silver 50+Women Oral Tablet Take 1 [...] INHALATION BY MOUTH DAILY 180 Each 3 Ezetimibe 10 MG Oral Tablet (Zetia) Take 1 Tablet by mouth in the morning. metFORMIN HCl 500 MG Oral Tablet (Glucophage) [...] BY MOUTH TWICE DAILY 180 Tablet 3 Contour Next Test In Vitro Strip (Glucose Blood) Test twice daily as directed. Dx E11.9. 100 Strip 5 Furosemide 20 MG Oral Tablet (Lasix) Take one 1-2 days per week as needed for fluid retention 20 Tablet 5 Spironolactone 25 MG Oral Tablet (Aldactone) Take 0.5 Tablets by mouth in the morning. 45 Tablet 1 Amoxicillin-Pot Clavulanate 875-125 MG Oral Tablet (Augmentin) Take 1 Tablet by mouth in the morning and 1 Tablet before bedtime. 20 Tablet 0 Metoprolol Succinate ER 25 MG Oral Tablet Extended Release 24 Hour (Toprol XL) Take 1 Tablet by mouth in the morning. (Patient not taking: Reported on 05/17/2023) 90 Tablet 3 No current facility-administered medications for this visit. Review of patient's allergies indicates: Allergen Reactions Daniel Inhibitors Cough Saccharin Cough Related to sulfa allergy Sulfa Antibiotics Hives hives as child, saccharin Cefaclor hives Erythromycin Hives Etodolac Does not remember Hyoscyamine Other (Please comment) hallucinations Levofloxacin Hemihydrate "brain fog" Sulfites wheezing Ipratropium Other (Please comment) Says she feels her lungs get itchy when she uses it Sorbitol Sugar alcohol Health Maintenance Due Topic Date Due Alpha-1 Antitrypsin Never done Zoster Vaccines (2 of 2) 11/02/2008 COLONOSCOPY-EVERY 5 YRS AGES 18-100 07/23/2016 *BISPHONATE OR OTHER ACCEPTABLE MEDICATION NEEDED FOR OSTEOPOROSIS (REFER TO SMARTSET #1146) Never done Albumin/Creatinine Ratio 05/16/2023 HbA1c 06/06/2023 ROS: CONSTITUTIONAL: No change in weight, No weakness, and No fevers, sweats, or chills EYE: No recent significant change in vision and No eye pain, redness, discharge GASTROINTESTINAL: No significant heartburn, No significant change in appetite, No hematemesis, and No dysphagia : as per hpi ALL OTHER SYSTEMS NEGATIVE I reviewed social, PMH, PSH, and family history and updated where needed. 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 64 Employer: [employer] Tobacco Use Smoking status: Former Packs/day: 1.00 Years: 30.00 Additional pack years: 0.00 Total pack years: 30.00 Types: Cigarettes Quit date: 2016 Years since quittin.8 Smokeless tobacco: Never Vaping Use Vaping Use: Never used Substance and Sexual Activity Alcohol use: No Drug use: No Sexual activity: Not Currently Partners: Male Other Topics Concern Service No Blood Transfusions No Caffeine Concern Not Asked Occupational Exposure Not Asked Hobby Hazards Not Asked Sleep Concern Not Asked Stress Concern Not Asked Weight Concern Not Asked Special Diet Not Asked Back Care Not Asked Exercise Not Asked Bike Helmet Not Asked Seat Belt Not Asked Self-Exams Not Asked Social History Narrative 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 1 cat No mold but always suspect there is some Social Determinants of Health Financial Resource Strain: Not on file Food Insecurity: No Food Insecurity (05/16/2023) Hunger Vital Sign Worried About Running Out of Food in the Last Year: Never true Ran Out of Food in the Last Year: Never true Transportation Needs: Not on file Physical Activity: Not on file Stress: Not on file Social Connections: Not on file Intimate Partner Violence: Not on file Housing Stability: Not on file Past Medical History: Diagnosis Date Adjustment disorder with depressed mood situational Allergic rhinitis due to pollen 02/08/2011 Asthma Asthma, allergic Benign neoplasm of colon 07/23/2011 Hyperplastic polyp Carotid disease, bilateral (HCC) Chronic rhinitis vasomotor Chronic sinusitis 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 History of cardiac cath twice History of cataract 09/24/2017 History of hemorrhoids 09/24/2017 HTN, goal below 140/90 04/29/2016 Infectious mononucleosis 1963 hospitalized for mono-related anemia and hepatitis Irritable bowel syndrome Knee joint replacement status 03/28/[address] Doherty, [facility] Lung nodule 02/11/2020 Menopause 1944 started ERT at that time Need for prophylactic hormone replacement therapy (postmenopausal) age 43 Neuropathy 05/22/2020 No advance directive on file 01/23/2005 Yes, Patient instructed to provide copy of advance directive for provider to review and to be scanned into Electronic Medical Record Nocturnal hypoxia 12/25/2015 MASSIMO on CPAP 02/13/2005 on CPAP Osteoporosis osteopenia Other paraproteinemias 08/1999 [place] 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 Paroxysmal SVT (supraventricular tachycardia) 05/26/2018 Retina hole, left 04/01/2018 Retinal tear left eye Senile nuclear cataract 02/17/2014 Tim Sleep apnea, obstructive Special screening for osteoporosis 06/2002 3-4 % decline compared to 1999, repeat in 2005 Past Surgical History: Procedure Laterality Date ABLATE HEART DYSRHYTHM FOCUS 12/2018 ARTHROPLASTY KNEE TOTAL 03/28/2010 Bessy, left at [facility] CAROTID (INTERNAL) ARTERY CATHETHER PLACEMENT Left 09/29/2015 CATHETER PLACEMENT INTERNAL CAROTID ARTERY performed by Nehemias Wells MD at [facility] DELIVERY 1968, 1971 x 2 COLONOSCOPY W/ LESION REMOVAL, SNARE 07/23/2011 Hyperplastic polyp,severe diverticulosiss,repeat colonoscopy 5 years COLORECTAL CANCER SCREEN; COLON 01/07/2002 normal repeat in 10 years, Dr Seals, [facility] DENTAL SURGERY PROCEDURE NEC 1961 wisdom teeth DEXA SCAN/BONE MINERAL AXIAL 2002 repeat in 2002, osteopenia noted, repeat 06 DEXA SCAN/BONE MINERAL AXIAL 07/25/2009 normal, low risk repeat 2011 EGD, FLEXIBLE, DIAGNOSTIC 03/20/2017 normal/[facility] EGD, FLEXIBLE, DIAGNOSTIC N/A 08/30/2022 [facility], EGD, z-line found 36 cm normal / entire esophagus with a Savary dilator at 18mm / biopsies show mild chronic gastritis / ELECTROPHYSIOLOGY EVAL & ABLATE SVT N/A 04/14/2020 SVT EPS AND CATHETER ABLATION performed by Linda Camp IV, MD at [facility]ARDIAC LABS [facility] FLUORO BARIUM ENEMA 04/24/1998 extensive spastic diverticulosis INSERTION OF LENS PROSTHESIS OS IOF-DEXA SCAN/BONE MINERAL AX 08/08/1999 T score negative 1 (osteopenia only) KNEE ARTHROSCOPY, DIAGNOSTIC 2006 Knee Arthroscopy left LASER TRABECULOPLASTY 03/03/2014 Laser Retinopexy OS, Dr. Mcnamara MAMMOGRAM - BILATERAL 10/26/99, 04/03/01 normal MAMMOGRAM - BILATERAL 05/07/2007 birad code 2 MAMMOGRAM SCREENING-BILATERAL 01/17/2004 benign findings, yearly mammogram appropriate, birad code 2 MAMMOGRAM SCREENING-BILATERAL 04/04/2005 negative finding, birad 1, yearly mammograms appropriate MAMMOGRAM SCREENING-BILATERAL 05/09/2008 birad2, benign, yearly reccm. NASAL ENDOSCOPY, DX W/SINUSOSCOPY 05/09/2011 Dr. Vega- [facility] NASAL ENDOSCOPY,TOTAL ETHMOIDECTOMY 05/09/2011 Dr. Villarreal [facility] OTHER (INFORMATION) ACT 112 SIGNED 09/28/21 DR. MCNAMARA PULMONARY FUNCTION TEST SCREEN 10/04/1998 moderate obstruction REMOVE CATARACT, INSERT LENS PROSTH 04/27/2014 EXTRACAPSULAR CATARACT REMOVAL WITH INTRAOCULAR LENS performed by Antony Dumont MD at OR [facility] REMOVE CATARACT, INSERT LENS PROSTH 05/11/2014 EXTRACAPSULAR CATARACT REMOVAL WITH INTRAOCULAR LENS performed by Antony Dumnot MD at [facility] REMOVE CATARACT, INSERT LENS PROSTH 05/11/2014 EXTRACAPSULAR CATARACT REMOVAL WITH INTRAOCULAR LENS performed by Antony Dumont MD at [facility] REMOVE GALLBLADDER 06/30/1996 laporscopic cholecystectomy, Dr Gunderson, [place], [place] REMOVE TONSILS & ADENOIDS, UNDER 12 1953 SINUS SURGERY PROCEDURE NEC 01/1999 with deviated septum repair, Dr Vidal, SMALL BOWEL ENDOSCOPY W/BX 07/03/2010 small sliding hiatal hernia, normal tissue bx TENDON SHEATH INCISION, FINGER 2007 right [place] THROMBOENDARECTOMY W/PATCH,NECK INCISION Left 09/29/2015 CAROTID ENDARTERECTOMY performed by Nehemias Wells MD at [facility] TOTAL ABD HYSTERECTOMY W/WO REMOVAL OF TUBE(S) Bilateral age 43 TOTAL HYSTERECTOMY 1987 with BSO Family History Problem Relation Age of Onset Eye Problems Mother cataracts/glaucoma/AMD Cancer Mother pancreatic at age 72 Cancer Father prostate at age 66 Eye Problems Father cataracts/glaucoma Diabetes Brother at age 60's Hypertension Sister Stroke Grandfather (Paternal) Thyroid Disorder None Heart Disorder None Other (AAA) Other Denies FH of AAA OBJECTIVE: PHYSICAL EXAM: BP 120/66 | Pulse 90 | Temp 36.7 C (98.1 F) (Tympanic) | Wt 102.9 kg (226 lb 14.4 oz) | SpO2 94% | BMI 40.84 kg/m | BSA 2.13 m General: alert, healthy, and no distress Head: Normocephalic, No masses, lesions, or abnormalities Eye Exam: conjunctiva are pink and non-injected, sclera clear Abdomen: abdomen soft, obese, and some mild tenderness luq, no rebound or guarding. Extremities: no edema, no clubbing, no cyanosis Neuro Exam: alert with fluent speech, walks with walker Psych: normal affect, no flight of ideas or tangential thought, good eye contact, no pressured speech 04/30/23 cardiology: With complex history as outlined underlying vascular [...] Continue daily weights sodium and fluid restriction ASSESSMENT: R35.0 Urinary frequency (primary encounter diagnosis) R19.5 Loose stools K57.92 Acute diverticulitis PLAN: Urinary frequency (Primary) - URINALYSIS, REFLEX TO CULTURE (NOT FOR NEUTROPENIC PATIENTS); Future; Expected date: 05/17/2023 Check urine, exclude blood or infection Loose stools - CBC WITH WBC DIFFERENTIAL; Future; Expected date: 05/17/2023 - COMPREHENSIVE METABOLIC PANEL; Future; Expected date: 05/17/2023 Perhaps from amox-clauv On probiotic, will continue If persistent after abx, let me know, t/c ct, c diff Acute diverticulitis Finish abx Aware c-scope due Follow Up: Return if symptoms worsen or fail to improve and as scheduled.. Andrae Hays MD documented in this encounter Nursing Notes * Edwina Graham LPN - 05/17/2023 9:24 AM EST Chief Complaint Patient presents with Follow Up Discuss bowel and bladder issues. Having a lot of urinary frequency and lower abdominal/pubic pain.Sometimes there is a pink tinge on toilet paper when she wipes. Has been going on for about a month. documented in this encounter Plan of Treatment Upcoming Encounters Date Type Department Care Team (Late st Contact Info) Description 05/27/2023 1:35 PM EST Office Visit Urogynecology Jim Whitfield [address] [place] [address] Neel James MD [address] [place] [address] Nurse Dick Whitfield [address] [place] [address] 07/21/2023 3:00 PM EST [facility] [address] [place] [address] Kamilla Poole PA-C [address] [place] [address] 08/22/2023 11:20 AM EST Office Visit General Internal Medicine [facility] [address] [facility] [place] [address] Andrae Hays MD [address] [facility] [place] [address] 10/23/2023 1:15 PM EDT Office Visit Ophthalmology, [facility] [address] [place] [address] Junior Mcnamara DO [address] [facility] [place] [address] 11/07/2023 11:00 AM EDT Office [facility] [address] [facility] [place] [phone] Idania Garner CRNP [address] [facility] [address] 11/27/2023 1:45 PM EDT Office Visit Hematology/Oncology [facility] [address] [facility] [place] [address] Wilber Muniz MD [address] [facility] [place] [address] 12/08/2023 11:40 AM EDT Telemedicine Pulmonary Medicine, [place] [address] [place] [address] Ab Carlisle MD [address], [place] [id number] Cart, Telemed Pulm Gw [address] [facility] [place] [address] Pending Results Name Type Priority Associated Diagnoses Date /Time CBC WITH WBC DIFFERENTIAL Lab Routine Loose stools 05/17/2023 10:04 AM EST COMPREHENSIVE METABOLIC PANEL Lab Routine Loose stools 05/17/2023 10:04 AM EST Scheduled Orders Name Type Priority Associated Diagnoses Orde r Schedule URINALYSIS, REFLEX TO CULTURE (NOT FOR NEUTROPENIC PATIENTS) Lab Routine Urinary frequency Expected: 05/17/2023, Expires: 05/17/2024 CBC WITH WBC DIFFERENTIAL Lab Routine Loose stools Expected: 05/17/2023 (Approximate), Expires: 05/17/2024 COMPREHENSIVE METABOLIC PANEL Lab Routine Loose stools Expected: 05/17/2023 (Approximate), Expires: 05/16/2024 Scheduled Procedures Name Priority Associated Diagnoses Date/Ti [...] D LEVEL ONCE IN A LIFETIME-USE SMARTSET# 04070 Completed 05/27/2022, 01/18/2021, 02/10/2020, Additional history exists [...] this encounter Medical Devices Implanted Type Area Civil Engineer'S Aide Device Identifier Shelf Expiration Date Model / Serial / Lot Lens 10.5 Sn60wf - [id number] Implanted:Qty: 1 on 04/27/2014 at OR [facility] Left: Eye [employer] 02/27/2019 SN60WF.105 / [id number] / Lens 12.5 Sn60wf - [id number] Implanted:Qty: 1 on 05/11/2014 at OR [facility] Right: Eye [employer] 02/27/2019 SN60WF.125 / [id number] / documented as of this encounter Visit Diagnoses Diagnosis Urinary frequency- Primary Loose stools Abnormal feces Acute diverticulitis Diverticulitis of colon (without mention of hemorrhage) documented in this encounter Advance Directives Latest [...] and were consensually agreed upon. Care Teams Instructor Programmable Controllers Relationship Specialty Start Date End Date Andrae Hays MD [address] [facility] [place] [address] PCP - General Internal Medicine 04/10/16 documented as of this encounter
--- OUTSIDE RECORDS SUMMARY | 2023-05-22 13:02 | External Medical Summary | Summary of Care ---
Author Name Unknown Organization [facility] Address [address] [place] [address] Phone [phone] Care Team Providers Care Returned Goods Repairer Name Role Phone Andrae Hays MD Primary Care Provider + Reason for Visit * Reason Comments Abdominal Pain Started with lower a bdominal pain 2 weeks ago that has been moving from right to left lower quadrant. Pain is lingering in pubic area now. Had a BM earlier, which relieved some of the pain. 2 at home urine tests were negative. Stool has been very loose and has been having more gas with BM. Encounter Details Date Type Department Care Team Description 04/15/2023 Office Visit General Internal Medicine [facility] [address] [place] [address] Berna Azevedo MD [address] [place] [address] Diverticulitis of colon*; Other constipation; Lower abdominal pain; Chronic sinusitis, unspecified location; Type 2 diabetes mellitus with hemoglobin A1c goal of less than 7.0% ([facility]); Moderate persistent asthma without complication; S/P RF ablation operation for arrhythmia; Paroxysmal SVT (supraventricular tachycardia); MGUS (monoclonal gammopathy of unknown significance); Irritable bowel syndrome, unspecified type; Gastroesophageal reflux disease without esophagitis; COPD, group B, by GOLD 2017 classification ([facility]); Angiomyolipoma of right kidney; Bronchiectasis without complication ([facility]) Allergies Active Allergy Reactions Severity Noted Date Comments Daniel Inhibitors Cough Medium [...] as of this encounter (statuses as of 04/15/2023) Medications Medication Sig Dispensed Refills Start Date [...] by mouth in the morning. 0 Active Furosemide 20 MG Oral Tablet (Lasix) Take one 1-2 days per week as needed for fluid retention 20 Tablet 5 10/31/2021 Active Additional Information Patient not taking.Reported on 04/15/2023 Mupirocin 2 % External Ointment (Bactroban) NEEDED 0 11/30/2021 Active FLUoxetine HCl 10 MG Oral Capsule (PROzac)Indications:Ma terrance depressive disorder with single episode, in partial remission ([facility]) Take by mouth 1 Capsule in the morning. 90 Capsule 3 04/16/2022 Active Albuterol Sulfate HFA 108 (90 Base) MCG/ACT Inhalation Aerosol Solution Inhale 2 Puffs by mouth every 4 hours as needed for Cough, Shortness of Breath or Wheezing. 36 g 1 07/18/2022 Active oxygen IN GASIndications:Chronic respiratory failure with hypoxia ([facility]) 1 LPM via nasal cannula with ambulation 1 Each 0 07/23/2022 Active Breo Ellipta 200-25 MCG/ACT Inhalation Aerosol Powder Breath Activated (fluticasone furoate-vilanterol)Ind ications:COPD, group B, by GOLD 2017 classification ([facility]) USE 1 INHALATION BY MOUTH DAILY 180 Each 3 07/25/2022 Active Ezetimibe 10 MG Oral Tablet (Zetia) Take 1 Tablet by mouth in the morning. 0 Active metFORMIN HCl 500 MG Oral Tablet (Glucophage)Indication s:Type 2 diabetes mellitus with hemoglobin A1c goal of less than 7.0% ([facility]) TAKE 1 TABLET BY MOUTH [...] hemoglobin A1c goal of less than 7.0% ([facility]) Test twice daily as directed. Dx E11.9. 100 Strip 5 01/21/2023 Active Spironolactone 25 MG Oral Tablet (Aldactone)Indications :HTN, goal below 140/90 TAKE 1 TABLET BY MOUTH DAILY 90 Tablet 3 03/17/2023 Active Additional Information Patient taking differently: 12.5 mg Daily(AM), Reported on 04/04/2023 Verapamil HCl ER 180 MG Oral Tablet [...] days. 20 Tablet 0 04/15/2023 3 Active documented as of this encounter (statuses as of 04/15/2023) Active Problems Problem Noted Date Hidradenitis suppurativa 11/19/2022 Chronic obstructive pulmonary disease wi th hypoxia 07/12/2022 S/P RF ablation operation for arrhythmia 04/14/2020 Lung nodule 02/11/2020 Obesity, morbid (more than 100 lbs over ideal weight or BMI > 40) 06/17/2019 AVNRT (AV carleen re-entry tachycardia) Angiomyolipoma of right kidney 9 S/P ablation operation for arrhythmia Pulmonary nodules 12/07/2018 COPD, group B, by GOLD 2017 classificati on 12/07/2018 Overview: Per COPD GOLD Classification Bronchiectasis without complication 09/28 History of tobacco abuse 10/14/2018 At risk for aspiration 10/14/2018 Dysphagia 10/14/2018 Statin intolerance 06/08/2018 Paroxysmal SVT (supraventricular tachyca rdia) 05/26/2018 RLS (restless legs syndrome) 04/01/2018 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, in partial remission 04/01/2018 DISH (diffuse idiopathic skeletal hypero stosis) 12/30/2017 History of cataract 09/24/2017 History of epistaxis 09/24/2017 Diabetic polyneuropathy 09/24/2017 Diastolic dysfunction 04/29/2017 HTN, goal below 140/90 04/29/2016 Nocturnal hypoxia 12/25/2015 Dependence on nocturnal oxygen therapy 0 12/25/2015 Overview: With CPAP Dyslipidemia, goal LDL below 100 016 S/P carotid endarterectomy 09/29/2015 Carotid stenosis, non-symptomatic 2015 Asthma, moderate persistent 01/23/2015 GERD (gastroesophageal reflux disease) 0 10/28/2012 Diverticulosis of colon 06/20/2011 Allergic rhinitis due to pollen 02/09/20 11 Knee joint replacement status 03/28/2010 Overview: left Dr Doherty, [facility] Type 2 diabetes mellitus with hemoglobin A1c goal of less than 7.0% 06/07/2009 Overview: ICD-10 update of inactive term Vitamin D deficiency 05/25/2009 Primary localized osteoarthrosis, lower leg 03/23/2009 Osteoporosis 07/14/2002 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 Overview: [place] 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 Irritable bowel syndrome Chronic sinusitis MASSIMO on CPAP Overview: CPAP 7 cwp 3 LPM AHP documented as of this encounter (statuses as of 04/15/2023) Resolved Problems Problem Noted Date Resolved Date Neuropathy 05/22/2020 07/23/2021 Retinal tear, left 04/01/2018 12/04/2018 Retina hole, left 04/01/2018 12/04/2018 Class 2 obesity with alveola r hypoventilation and serious comorbidity in adult 09/24/2017 06/17/2019 Diabetic cataract 05/13/2017 09/24/2017 Body mass index (BMI) of 40.0 to 44.9 in adult 1 07/13/2016 09/24/2017 Overview: Per Obesity protocol #1 Acute anterior epistaxis 04/15/2017 018 Hyperlipidemia 09/16/2016 07/23/2021 Depression with anxiety 12/25/2015 10/14/19 20 Exertional shortness of breath 11/20/2015 0 03/15/2019 Left-sided carotid artery disease 07/31/2015 12/04/2018 HTN, goal below 130/80 06/28/2015 6 COPD, moderate 01/23/2015 12/09/2018 Overview: Per COPD GOLD Classification COPD with exacerbation 01/23/2015 6 Senile nuclear cataract 02/17/2014 12/05/19 19 HTN, goal below 140/80 02/17/2012 5 Overview: Per HTN Protocol #27. CHRONIC SINUSITIS NEC 02/08/2011 04/29/2016 Dyslipidemia, goal LDL below 130 02/08/2011 04/29/2016 HTN, GOAL BELOW 130/80 07/26/2009 2 Overview: Per HTN Taxonomy. ELEVATED SEDIMENTATION RATE 03/23/200908/29 ELEVATED GLUCOSE FASTING 03/14/2006 009 HTN, goal below 140/90 04/03/2005 0 Overview: Per HTN Taxonomy. No advance directive on file 01/23/2005 Overview: Yes, Patient instructed to provide copy of advance directive for provider to review and to be scanned into Electronic Medical Record Need for prophylactic hormon e replacement therapy (postmenopausal) 07/14/2002 09/24/2017 BACTERIAL PNEUMONIA RLL 04/12/2002 05/14/20 02 Major depressive disorder, recurrent episode, mi ld 09/24/2017 PURE HYPERCHOLESTEROLEM 06/06/20 09 Overview: Per Lipid Taxonomy. Hemorrhoids, external without complications 09/24/2017 documented as of this encounter (statuses as of 04/15/2023) Immunizations Name Administration Dates Next Due COVID-19 mRNA, LNP-s, No Pre serve, 2-Dose Series ([employer]) 02/23/2021,08/26/2020,08/05/2020 COVID-19, LNP-s, No Preserve , Jasbir-sucrose, Ages 12+ (Pfizer) 09/26/2021 COVID-19, MRNA-LNP, 23-24, P F, 30 MCG/0.3 mL, 12 YRS AND ABOVE, IM ([facility]) 03/22/2023 Covid-19, Mrna, Lnp-s, Pf, B ivalent, 30 Mcg, IM, 12 yrs and above ([employer]) 03/08/2022 H1N1 2009 Influenza, IM 07/19/2009 PPD [...] drink = 0.6 oz pur e alcohol) Food Insecurity Answer Date Recorded Within the past 12 months, y ou worried that your food would run out before you got money to buy more. Never true 11/19/2022 Within the past 12 months, t he food you bought just didn't last and you didn't have money to get more. Never true 11/19/2022 Sex Assigned at Date Recorded Female 01/29/2019 10:43 AM EDT Job Start Date Occupation Industry Not on file Not on file Not on file documented as of this encounter Last Filed Vital Signs Vital Sign Reading Time Taken Comments Blood Pressure 122/74 04/15/2023 1:18 PM EDT Pulse 87 04/15/2023 1:18 PM EDT Temperature 37 C (98.6 F) 04/15/2023 1: 18 PM EDT Respiratory Rate - - Oxygen Saturation 96% 04/15/2023 1:18 PM EDT Inhaled Oxygen Concentration - - Weight 105.2 kg (231 lb 14.4 oz) 04/15/2023 1:18 PM EDT Height - - Body Mass Index 41.74 12/06/2022 11:20 AM EDT documented in this encounter Functional [...] as of this encounter Progress Notes * Berna Azevedo MD - 04/15/2023 1:35 PM EDT Images from the original note were not included. History of Present Illness Marycruz Cano is a 77 year old female that presents for Abdominal Pain (Started with lower abdominal pain 2 weeks ago that has been moving from right to left lower quadrant. Pain is lingering in pubic area now. Had a BM earlier, which relieved some of the pain. 2 at home urine tests were negative. Stool has been very loose and has been having more gas with BM.) Abdominal Pain This is a new problem. The current episode started 1 to 4 weeks ago (2 weeks). The problem occurs constantly. The pain is located in the LLQ, RLQ and suprapubic region. The pain is at a severity of 7/10 (2/10 at baseline). The pain is severe. The abdominal pain does not radiate. Associated symptomsinclude diarrhea, a fever, flatus, frequency and nausea. Pertinent negatives include no constipation, dysuria or vomiting. The pain is aggravated by bowel movement and movement (During passing bowel movement). The pain is relieved by Bowel movements. She has tried acetaminophen for the symptoms. Her past medical history is significant for abdominal surgery and irritable bowel syndrome. History ofdiverticulitis in past multiple times. Also constipation Physical Exam Vitals: 04/15/23 1318 Temp: 37 C (98.6 F) Pulse: 87 SpO2: 96% BP: 122/74 Physical Exam Vitals reviewed. Constitutional: General: She is not in acute distress. Appearance: She is obese. She is not ill-appearing. HENT: Head: Normocephalic. Mouth/Throat: Mouth: Mucous membranes are moist. Pharynx: Oropharynx is clear. No oropharyngeal exudate or posterior oropharyngeal erythema. Cardiovascular: Rate and Rhythm: Normal rate and regular rhythm. Heart sounds: Normal heart sounds. No murmur heard. Pulmonary: Effort: Pulmonary effort is normal. No respiratory distress. Breath sounds: Normal breath sounds. No wheezing. Abdominal: General: Bowel sounds are normal. There is no distension. Palpations: Abdomen is soft. There is no mass. Tenderness: There is abdominal tenderness in the suprapubic area and left lower quadrant. There is no left CVA tenderness or rebound. Musculoskeletal: General: No swelling or tenderness. Cervical back: No rigidity or tenderness. Right lower leg: No edema. Left lower leg: No edema. Lymphadenopathy: Cervical: No cervical adenopathy. Skin: General: Skin is warm. Neurological: Mental Status: She is alert. I have reviewed the following results: Assessment and Plan Diverticulitis of colon Probiotic or yogurt every day while on antibiotic Liquid and soft diet, advance as tolerated avoid high roughage, skin of fruits and raw vegetable, salad for few days patient to call back if developed high fever, severe pain or constant nausea vomiting - Amoxicillin-Pot Clavulanate 875-125 MG Oral Tablet (Augmentin); Take 1 Tablet by mouth in the morning and 1 Tablet before bedtime. Do all this for 10 days. Other constipation Suggest to take Benefiber once a day along with Colace 1-2 a day. Start after this bout of diverticulitis is over MiraLax as needed Lower abdominal pain - URINALYSIS WITH MICROSCOPIC EXAM; Future - CULTURE, URINE, QUANTITATIVE; Future Chronic sinusitis, unspecified location Type 2 diabetes mellitus with hemoglobin A1c goal of less than 7.0% ([facility]) Moderate persistent asthma without complication S/P RF ablation operation for arrhythmia Paroxysmal SVT (supraventricular tachycardia) MGUS (monoclonal gammopathy of unknown significance) Irritable bowel syndrome, unspecified type Gastroesophageal reflux disease without esophagitis COPD, group B, by GOLD 2017 classification ([facility]) Angiomyolipoma of right kidney Bronchiectasis without complication ([facility]) Wrap-Up Time: I spent a total of 30-39 minutes (exact time 32 mins) on the date of service in preparation, delivery, and documentation of the care provided to Marycruz Cano excluding any time spent in the performance of separately billed services. documented in this encounter Nursing Notes * Edwina Graham LPN - 04/15/2023 1:18 PM EDT Chief Complaint Patient presents with Abdominal Pain Started with lower abdominal pain 2 weeks ago that has been moving from right to left lower quadrant. Pain is lingering in pubic area now. Had a BM earlier, which relieved some of the pain. 2 at homeurine tests were negative. Stool has been very loose and has been having more gas with BM. documented in this encounter Plan of Treatment Upcoming Encounters Date Type Specialty Care Team Description 04/21/2023 Office Visit Internal Medicine Andrae Hays MD [address] [place] [address] 04/22/2023 Office Visit Ophthalmology Junior Mcnamara DO [address] [place] [address] 06/25/2023 Office Visit Cardiology Macario Liu MD [address] [place] [address] 11/07/2023 Office Visit Sleep Disorders Idania Garner CRNP [address] [place] [address] 11/27/2023 Office Visit Hematology Oncology Wilber Muniz MD [address] [place] [address] 12/08/2023 Telemedicine Pulmonary Ab Carlisle MD [address] [place] [address] Cart, Telemed Pulm Gw [address] [place] [place] [address] Scheduled Orders Name Type Priority Associated Diagnoses Orde r Schedule URINALYSIS WITH MICROSCOPIC EXAM Lab Routine Lower abdominal pain Expected: 04/15/2023 (Approximate), Expires: 04/14/2024 CULTURE, URINE, QUANTITATIVE Lab Routine Lower abdominal pain Expected: 04/15/2023, Expires: 04/15/2024 Scheduled Procedures Name Priority Associated Diagnoses Date/Ti [...] 022, 10/29/2021, 09/24/2017, Additional history exists Diabetic Foot Exam 05/16/2023 05/16/2022, 1 , 02/11/2020, Additional history exists HbA1c 06/06/2023 12/05/2022, 05/01, 01/17/2022, Additional history exists Depression Screening 11/20/2023 11/19/2022 B-12 12/06/2023 12/05/2022, 12/29, 10/18/2021, Additional history exists O2 ASSESSMENT COMPLETED IN PAST YEAR FOR COPD 12/07/2023 12/06/2022 GFR 04/04/2024 04/04/2023, 06/01/2023, 08/23/2022, Additional history exists DTaP,Tdap,and Td Vaccines (3 - Td or Tdap) 12/09/2031 12/08/2021, 02/11/2008, 10/16/1992 Hepatitis B Completed 05/14/2002, 11/28, 10/15/2001, Additional history exists DXA Scan Discontinued 08/02/2015, 07/02, 07/29/2011, Additional history exists Pneumococcal Vaccine: 65+ Years Completed 09/24/2017, 04/28/2015, 03/23/2009 VITAMIN D LEVEL ONCE IN A LIFETIME-USE SMARTSET# [id number] Completed 05/27/2022, 01/18/2021, 02/10/2020, Additional history exists [...] this encounter Medical Devices Implanted Type Area Horse Racetrack Manager Device Identifier Shelf Expiration Date Model / Serial / Lot Lens 10.5 Sn60wf - [id number] Implanted:Qty: 1 on 04/27/2014 at OR [facility] Left: Eye [employer] 02/27/2019 SN60WF.105 / [id number] / Lens 12.5 Sn60wf - [id number] Implanted:Qty: 1 on 05/11/2014 at OR [facility] Right: Eye [employer] 02/27/2019 SN60WF.125 / [id number] / documented as of this encounter Visit Diagnoses Diagnosis Diverticulitis of colon- Primary Diverticulitis of colon (without mention of hemorrhage) Other constipation Lower abdominal pain Abdominal pain, other specified site Chronic sinusitis, unspecified location Type 2 diabetes mellitus with hemoglobin A1c goal of less than 7.0% ([facility]) Moderate persistent asthma without complication Unspecified asthma S/P RF ablation operation for arrhythmia Other postprocedural status Paroxysmal SVT (supraventricular tachycardia) Paroxysmal supraventricular tachycardia MGUS (monoclonal gammopathy of unknown significance) Monoclonal paraproteinemia Irritable bowel syndrome, unspecified type Gastroesophageal reflux disease without esophagitis Esophageal reflux COPD, group B, by GOLD 2017 classification ([facility]) Angiomyolipoma of right kidney Bronchiectasis without complication ([facility]) Bronchiectasis without acute exacerbation documented in this encounter Advance Directives Latest [...] and were consensually agreed upon. Care Teams Returned Goods Repairer Relationship Specialty Start Date End Date Andrae Hays MD [address] [place] [address] PCP - General Internal Medicine 04/10/16 documented as of this encounter
--- OUTSIDE RECORDS SUMMARY | 2023-05-22 13:02 | External Medical Summary | Summary of Care ---
Author Name Unknown Organization [facility] Address [address] [place] [address] Phone [phone] Care Team Providers Care Occupational Medicine Specialist Name Role Phone Andrae Hays MD Primary Care Provider + Reason for Visit * Reason Onset Date Comments Test Results 04/14/2023 Appointment 04/14/2023 Encounter Details Date Type Department Care Team Description 04/14/2023 Telephone General Internal Medicine [facility] [address] [place] [address] Andrae Hays MD [address] [place] [address] Test Results; Appointment Allergies Active Allergy Reactions Severity Noted Date [...] as of this encounter (statuses as of 04/14/2023) Medications Medication Sig Dispensed Refills Start Date [...] fluid retention 20 Tablet 5 10/31/2021 Active Mupirocin 2 % External Ointment (Bactroban) NEEDED 0 11/30/2021 Active FLUoxetine HCl 10 MG Oral Capsule (PROzac)Indications:Ma terrance depressive disorder with single episode, in partial remission (HCC) Take by mouth 1 Capsule in the [...] ications:COPD, group B, by GOLD 2017 classification ([facility]) USE 1 INHALATION BY MOUTH DAILY 180 Each 3 07/25/2022 Active Ezetimibe 10 MG Oral Tablet (Zetia) Take 1 Tablet by mouth in the morning. 0 Active metFORMIN HCl 500 MG Oral Tablet (Glucophage)Indication s:Type 2 diabetes mellitus with hemoglobin A1c goal of less than 7.0% ([facility]) TAKE 1 TABLET BY MOUTH DAILY WITH [...] hemoglobin A1c goal of less than 7.0% ([facility]) Test twice daily as directed. Dx E11.9. [...] the morning. 90 Tablet 3 04/11/2023 Active documented as of this encounter (statuses as of 04/14/2023) Active Problems Problem Noted Date Hidradenitis suppurativa [...] status 03/28/2010 Overview: left Dr Doherty, [facility] Type 2 diabetes mellitus with hemoglobin A1c goal of less than 7.0% 06/07/2009 Overview: ICD-10 update of inactive term Vitamin D deficiency 05/25/2009 Primary localized osteoarthrosis, lower leg 03/23/2009 Osteoporosis 07/14/2002 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 Overview: [place] 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 Irritable bowel syndrome Chronic sinusitis MASSIMO on CPAP Overview: CPAP 7 cwp 3 LPM AHP documented as of this encounter (statuses as of 04/14/2023) Resolved Problems Problem Noted Date Resolved Date [...] as of this encounter (statuses as of 04/14/2023) Immunizations Name Administration Dates Next Due COVID-19 mRNA, LNP-s, No Pre serve, 2-Dose Series ([employer]) 02/23/2021,08/26/2020,08/05/2020 COVID-19, LNP-s, No Preserve , Jasbir-sucrose, Ages 12+ (Pfizer) 09/26/2021 COVID-19, MRNA-LNP, 23-24, P F, 30 MCG/0.3 mL, 12 YRS AND ABOVE, IM ([employer]) 03/22/2023 Covid-19, Mrna, Lnp-s, Pf, B ivalent, 30 Mcg, IM, 12 yrs and above (Pfizer) 03/08/2022 H1N1 2009 Influenza, IM 07/19/2009 Hepatitis B, 20+ yrs 05/14/2002,12/11/19 02,10/15/2001,03/18,10/11/1993,09/11/1993 Influenza, Whole Virus 05/30/2000 PPD 08/26/2013 Pneumococcal Conjugate Vacc, 13 Valent [...] Split, I IV3, With Preserve, Inj 03/29/2016,03/31/2014,04/20/2013,03/09,03/19/2011,05/01/2010,03/23/2009 ,05/04/2008,05/13/2006,05/08/2005,03/31,04/28/2000 Seasonal Influenza, Trivalen t, High Dose, No Preserve, IM 04/23/2019 TB Rosie Test 10/16/1992 TD - Tetanus/Diptheria (ADULT) 10/16/1992 TDAP (age 10 and older)(Boostrix) 12/08/2021 TDAP [...] encounter Miscellaneous Notes * Telephone Encounter - MASSIMO Gaytan - 04/14/2023 3:36 PM EDT Called pt, sched acute with Dr Azevedo on 04/15 04/14 JAT * Telephone Encounter - Herberth Leonard LPN - 04/14/2023 3:22 PM EDT The pt stated she has had a low grade fever and abd pain for approx 1 week. She also stated she hashad loose stools and cramping. Pt stated she has an Hx of diverticulitis. Routing to scheduling to schedule appointment AMOL. * Telephone Encounter - Herberth Leonard LPN - 04/14/2023 1:34 PM EDT ----- Message from Andrae Hays MD sent at 04/13/2023 12:18 PM EDT ----- Noted, elevated wbc, pls keep f/u with me, monitor for infectious symptoms (uti, uri, etc) and schedule visit amol if develop documented in this encounter Plan of Treatment Upcoming Encounters Date Type Specialty Care Team Description 04/15/2023 Office Visit Internal Medicine Berna Azevedo MD [address] [place] [address] 04/15/2023 Office Visit Dermatology Rita Davis MD [address] [place] [address] 04/21/2023 Office Visit Internal Medicine Andrae Hays MD [address] [place] [address] 04/22/2023 Office Visit Ophthalmology Junior Mcnamara DO [address] [place] [address] 06/25/2023 Office Visit Cardiology Macario Liu MD [address] [place] [address] 11/07/2023 Office Visit Sleep Disorders Idania Garner CRNP [address] [place] [address] 11/27/2023 Office Visit Hematology Oncology Wilber Muniz MD [address] [facility] [place] [address] 12/08/2023 Telemedicine Pulmonary Ab Carlisle MD [address] [place] [address] Cart, Telemed Pulm Gw [address] [facility] [place] [address] Scheduled Procedures Name Priority Associated Diagnoses Date/Ti [...] FOR COPD 12/07/2023 12/06/2022 GFR 04/04/2024 04/04/2023, 06/0 01/2023, 08/23/2022, Additional history exists DTaP,Tdap,and Td Vaccines (3 - Td or Tdap) 12/09/2031 12/08/2021, 02/11/2008, 10/16/1992 Hepatitis B Completed 05/14/2002, 11/28, 10/15/2001, Additional history exists DXA Scan Discontinued 08/02/2015, 07/02, 07/29/2011, Additional history exists Pneumococcal Vaccine: 65+ Years Completed 09/24/2017, 04/28/2015, 03/23/2009 VITAMIN D LEVEL ONCE IN A LIFETIME-USE SMARTSET# [id number] Completed 05/27/2022, 01/18/2021, 02/10/2020, Additional history exists [...] this encounter Medical Devices Implanted Type Area Timing Adjuster Device Identifier Shelf Expiration Date Model / Serial / Lot Lens 10.5 Sn60wf - [id number] Implanted:Qty: 1 on 04/27/2014 at OR [facility] Left: Eye [employer] 02/27/2019 SN60WF.105 / [id number] / Lens 12.5 Sn60wf - [id number] Implanted:Qty: 1 on 05/11/2014 at OR [facility] Right: Eye [employer] 02/27/2019 SN60WF.125 / [id number] / documented as of this encounter Advance [...] and were consensually agreed upon. Care Teams Occupational Medicine Specialist Relationship Specialty Start Date End Date Andrae Hays MD [address] [place] [id number] PCP - General Internal Medicine 04/10/16 documented as of this encounter
--- OUTSIDE RECORDS SUMMARY | 2023-05-22 13:02 | External Medical Summary | Summary of Care ---
Author Name Unknown Organization [facility] Address [address] [facility] [place] [address] Phone [phone] Care Team Providers Care Bow Maker Custom Name Role Phone Andrae Hays MD Primary Care Provider + Reason for Visit * Reason Comments Follow Up Pt here for yearly f ull skin exam. Pt is concerned with new/dark spots on L cheek. Pt is also worried about getting boils do to her HS, she would like more info about her condition and what to do when she does get these boils. Encounter Details Date Type Department Care Team Description 04/15/2023 Office Visit Dermatology [facility] [address] [facility] [place] [address] Rita Davis MD [address] [facility] [place] [address] Photoaged skin*; Hx of actinic keratosis; Skin exam, screening for cancer; Seborrheic keratosis; Skin erythema Allergies Active Allergy Reactions Severity Noted Date [...] disorder with single episode, in partial remission ([facility]) Take by mouth 1 Capsule in the morning. 90 Capsule 3 04/16/2022 Active Albuterol Sulfate HFA 108 (90 Base) MCG/ACT Inhalation Aerosol Solution Inhale 2 Puffs by mouth every 4 hours as needed for Cough, Shortness of Breath or Wheezing. 36 g 1 07/18/2022 Active oxygen IN GASIndications:Chronic respiratory failure with hypoxia ([facility]) 1 LPM via nasal cannula with ambulation [...] replacement status 03/28/2010 Overview: left Dr Doherty, [facility] Type 2 diabetes mellitus with hemoglobin A1c goal of less than 7.0% 06/07/2009 Overview: ICD-10 update of inactive term Vitamin D deficiency 05/25/2009 Primary localized osteoarthrosis, lower leg 03/23/2009 Osteoporosis 07/14/2002 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 Overview: [place] IgG monoclonol spike monoclonal gammopathy of undetermined [...] Hyperlipidemia 09/16/2016 07/23/2021 Depression with anxiety 12/25/2015 04/16/20 20 Exertional shortness of breath 11/20/2015 0 [...] mRNA, LNP-s, No Pre serve, 2-Dose Series ([employer]) 02/23/2021,08/26/2020,08/05/2020 COVID-19, LNP-s, No Preserve , Jasbir-sucrose, Ages 12+ (Pfizer) 09/26/2021 COVID-19, MRNA-LNP, 23-24, P F, 30 MCG/0.3 mL, 12 YRS AND ABOVE, IM (PFIZER-Comirnat) 03/22/2023 Covid-19, Mrna, Lnp-s, Pf, B ivalent, [...] as of this encounter Progress Notes * Rita Davis MD - 04/15/2023 2:10 PM EDT SUBJECTIVE: History of Present Illness: Marycruz Cano is a 77 year old female seen today for follow up - skin cancer screening. Date Last Appointment: 02/18/2022 (in office), Visit date not found (telemedicine) Skin generally itchy, also new spots on L cheek x months. Also boils along labia and pubic area at times x years, more frequent lately, but they typically drain on their own. None present today. Hx MGUS Hx [place] No history of skin cancer. REVIEW OF SYSTEMS: SKIN: No other new or changing moles. HEME/LYMPH: No new or enlarging lumps or bumps. MEDICA TIONS: Current Outpatient Medications Medication Sig Dispense Refill [...] 0 Respiratory Therapy Supplies (NEBULIZER AIR TUBE/PLUGS) [facility] Use as directed 1 Each 0 Blood Glucose Monitoring Suppl (CONTOUR NEXT ONE) KIT Use as directed. Dx E11.9 1 Kit 0 acetaminophen (TYLENOL) 500 MG Tablet Take 1 Tablet by mouth every 8 hours as needed. 100 Tab 0 Simethicone 125 MG CAPS [...] 1 Tablet by mouth in the morning. Mupirocin 2 % External Ointment (Bactroban) NEEDED FLUoxetine HCl 10 MG Oral Capsule (PROzac) Take by mouth 1 Capsule in the morning. 90 Capsule 3 Albuterol Sulfate HFA 108 (90 Base) MCG/ACT [...] as directed. Dx E11.9. 100 Strip 5 Spironolactone 25 MG Oral Tablet (Aldactone) TAKE 1 TABLET BY MOUTH DAILY (Patient taking differently: 0.5 Tablets in the morning.) 90 Tablet 3 Verapamil HCl ER 180 MG Oral Tablet Extended Release (Isoptin SR) Take 1 Tablet by mouth in the morning. 90 Tablet 3 Amoxicillin-Pot Clavulanate 875-125 MG Oral Tablet (Augmentin) Take 1 Tablet by mouth in the morning and 1 Tablet before bedtime. Do all this for 10 days. 20 Tablet 0 Furosemide 20 MG Oral Tablet (Lasix) Take one 1-2 days per week as needed for fluid retention (Patient not taking: Reported on 04/15/2023) 20 Tablet 5 No current facility-administered medications for this visit. ALLERG IES: Daniel inhibitors, Saccharin, Sulfa antibiotics, Cefaclor, Erythromycin, Etodolac, Hyoscyamine, Levofloxacin hemihydrate, Sulfites, Ipratropium, and Sorbitol OBJECTIVE: GEN: uses walker to ambulate, alert, no distress, appears oriented, pleasant, and cooperative. SKIN: Detailed exam of hair, face including lids and lips, neck, chest, abdomen, back, bilateral upper ext. (arm, hand, fingers), bilateral lower ext. (leg, foot, toes), and palpation of scalp completed and are normal except: skin generally xerotic 1. L cheek - waxy brown papule 2. Upper pubic area erythema, no active nodules in region ASSESS MENT/PLAN: 1. Seborrheic/Benign Keratosis(-es) - Benign nature was discussed and no further intervention needed. Advised to call with any changes. 2. Hx furuncles vs. HS, typically self-resolving, pt will call if recalcitrant lesions, and consider I/D and culture. Stable today Photodamage, no outlier lesions Discussed sun protection with patient including proper use of sunscreens and protective clothing. Lora explained. Follow-up: 1-2 years There were no barriers tolearning and no other pain was related to today's visit. The patient and/or person accompanying patient demonstrates understanding of the visit and treatment. Rita Davis MD 04/15/2023 2:11 PM documented in this encounter Nursing Notes * Socorro Levine LPN - 04/15/2023 2:04 PM EDT Patient identified by full name and date of Chief Complaint Patient presents with Follow Up Pt here for yearly full skin exam. Pt is concerned with new/dark spots on L cheek. Pt is also worried about getting boils do to her HS, she would like more info about her condition and what to do when she does get these boils. documented in this encounter Plan of Treatment Upcoming Encounters Date Type Specialty Care Team Description 04/21/2023 Office Visit Internal Medicine Andrae Hays MD [address] [place] [address], [place] [address] 04/22/2023 Office Visit Ophthalmology Junior Mcnamara DO [address] [place] [address] 06/25/2023 Office Visit Cardiology Macario Liu MD [address] [place] [address] 11/07/2023 Office Visit Sleep Disorders Idania Garner CRNP [address] [place] [address] 11/27/2023 Office Visit Hematology Oncology Wilber Muniz MD [address] [place] [address] 12/08/2023 Telemedicine Pulmonary Ab Carlisle MD [address] [place] [address] Cart, Telemed Pulm Gw [address] [place] [address] Scheduled Procedures Name Priority Associated Diagnoses Date/Ti [...] 10/18/2021, Additional history exists GFR 04/04/2024 04/04/2023, 01/2023, 08/23/2022, Additional history exists O2 ASSESSMENT COMPLETED IN PAST YEAR FOR COPD 04/15/2024 04/15/2023 DTaP,Tdap,and Td Vaccines (3 - Td or Tdap) 12/09/2031 12/08/2021, 02/11/2008, 10/16/1992 Hepatitis B Completed 05/14/2002, 11/28, 10/15/2001, Additional history exists DXA Scan Discontinued 08/02/2015, 07/02, 07/29/2011, Additional history exists Pneumococcal Vaccine: 65+ Years Completed 09/24/2017, 04/28/2015, 03/23/2009 VITAMIN D LEVEL ONCE IN A LIFETIME-USE SMARTSET# 65499 Completed 05/27/2022, 01/18/2021, 02/10/2020, Additional history exists [...] this encounter Medical Devices Implanted Type Area Electric Fork Operator Device Identifier Shelf Expiration Date Model / Serial / Lot Lens 10.5 Sn60wf - [id number] Implanted:Qty: 1 on 04/27/2014 at OR [facility] Left: Eye [employer] 02/27/2019 SN60WF.105 / [id number] / Lens 12.5 Sn60wf - [id number] Implanted:Qty: 1 on 05/11/2014 at OR [facility] Right: Eye [employer] 02/27/2019 SN60WF.125 / [id number] / documented as of this encounter Visit Diagnoses Diagnosis Photoaged skin- Primary 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 Care Teams Bow Maker Custom Relationship Specialty Start Date End Date Andrae Hays MD [address] [place] [address], [place] [address] PCP - General Internal Medicine 04/10/16 documented as of this encounter
--- OUTSIDE RECORDS SUMMARY | 2023-05-22 13:02 | External Medical Summary | Summary of Care ---
Author Name Unknown Organization [facility] Address [address] [place] [address] Phone [phone] Care Team Providers Care Material Handling Equipment Stevedore Name Role Phone Andrae Hays MD Primary Care Provider + Reason for Visit * Reason Onset Date Comments Test Results 04/14/2023 Appointment 04/14/2023 Encounter Details Date Type Department Care Team Description 04/14/2023 Telephone General Internal Medicine [facility] [address] [place] [address] Andrae Hays MD [address] [place] [address] Test Results; Appointment Allergies Active Allergy Reactions [...] group B, by GOLD 2017 classification ([facility]) USE 1 INHALATION BY MOUTH DAILY 180 Each 3 07/25/2022 Active Ezetimibe 10 MG Oral Tablet (Zetia) Take 1 Tablet by mouth in the morning. 0 Active metFORMIN HCl 500 MG Oral Tablet (Glucophage)Indication s:Type 2 diabetes mellitus with hemoglobin A1c goal of less than 7.0% ([facility]) TAKE 1 TABLET BY MOUTH DAILY WITH [...] A1c goal of less than 7.0% ([facility]) Test twice daily as directed. Dx E11.9. [...] replacement status 03/28/2010 Overview: left Dr Doherty, [facility] [place] Type 2 diabetes mellitus with hemoglobin A1c goal of less than 7.0% 06/07/2009 Overview: ICD-10 update of inactive term Vitamin D deficiency 05/25/2009 Primary localized osteoarthrosis, lower leg 03/23/2009 Osteoporosis 07/14/2002 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 Overview: [place] IgG monoclonol spike monoclonal gammopathy of undetermined [...] mRNA, LNP-s, No Pre serve, 2-Dose Series ([employer]) 02/23/2021,08/26/2020,08/05/2020 COVID-19, LNP-s, No Preserve , Jasbir-sucrose, Ages 12+ (Pfizer) 09/26/2021 COVID-19, MRNA-LNP, 23-24, P F, 30 MCG/0.3 mL, 12 YRS AND ABOVE, IM (Lineagen-Comirnat) 03/22/2023 Covid-19, Mrna, Lnp-s, Pf, B ivalent, [...] Visit Internal Medicine Berna Azevedo MD [address] [place] [address] 04/15/2023 Office Visit Dermatology Rita Davis MD [address] [place] [address] 04/21/2023 Office Visit Internal Medicine Andrae Hays MD [address] [place] [address] 04/22/2023 Office Visit Ophthalmology Junior Mcnamara DO [address] [place] [address] 06/25/2023 Office Visit Cardiology Macario Liu MD [address] [place] [address] 11/07/2023 Office Visit Sleep Disorders Idania Garner CRNP [address] [place] [address] 11/27/2023 Office Visit Hematology Oncology Wilber Muniz MD [address] [facility] [place] [address] 12/08/2023 Telemedicine Pulmonary Ab Carlisle MD [address] [facility] [place] [address] Cart, Telemed Pulm Gw [address] [facility] [place] [address] Scheduled Procedures Name Priority Associated Diagnoses Date/Ti [...] D LEVEL ONCE IN A LIFETIME-USE SMARTSET# 15254 Completed 05/27/2022, 01/18/2021, 02/10/2020, Additional history exists [...] this encounter Medical Devices Implanted Type Area Visitor Services Information Assistant Device Identifier Shelf Expiration Date Model / Serial / Lot Lens 10.5 Sn60wf - [id number] Implanted:Qty: 1 on 04/27/2014 at OR [facility] Left: Eye [employer] 02/27/2019 SN60WF.105 / [id number] / Lens 12.5 Sn60wf - [id number] Implanted:Qty: 1 on 05/11/2014 at OR [facility] Right: Eye [employer] 02/27/2019 SN60WF.125 / [id number] / documented as of this encounter Advance [...] and were consensually agreed upon. Care Teams Material Handling Equipment Stevedore Relationship Specialty Start Date End Date Andrae Hays MD [address] [place] [address] PCP - General Internal Medicine 04/10/16 documented as of this encounter
--- OUTSIDE RECORDS SUMMARY | 2023-05-22 13:02 | External Medical Summary | Summary of Care ---
Author Name Unknown Organization [facility] Address [address] [place] [address] Phone [phone] Care Team Providers Care Tobacco Stemmer Name Role Phone Andrae Hays MD Primary Care Provider + Reason for Visit * Reason Onset Date Comments Test Results 04/14/2023 Appointment 04/14/2023 Encounter Details Date Type Department Care Team Description 04/14/2023 Telephone General Internal Medicine [facility] [address] [place] [address] Andrae Hays MD [address] [place] [address] Test Results; Appointment Allergies Active Allergy Reactions [...] group B, by GOLD 2017 classification ([facility]) USE 1 INHALATION BY MOUTH DAILY 180 Each 3 07/25/2022 Active Ezetimibe 10 MG Oral Tablet (Zetia) Take 1 Tablet by mouth in the morning. 0 Active metFORMIN HCl 500 MG Oral Tablet (Glucophage)Indication s:Type 2 diabetes mellitus with hemoglobin A1c goal of less than 7.0% ([facility]) TAKE 1 TABLET BY MOUTH [...] A1c goal of less than 7.0% ([facility]) Test twice daily as directed. [...] replacement status 03/28/2010 Overview: left Dr Doherty, [facility] Type 2 diabetes mellitus with hemoglobin A1c goal of less than 7.0% 06/07/2009 Overview: ICD-10 update of inactive term Vitamin D deficiency 05/25/2009 Primary localized osteoarthrosis, lower leg 03/23/2009 Osteoporosis 07/14/2002 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 Overview: [place] IgG monoclonol spike monoclonal gammopathy of undetermined [...] mRNA, LNP-s, No Pre serve, 2-Dose Series ([employer]) 02/23/2021,08/26/2020,08/05/2020 COVID-19, LNP-s, No Preserve , Jasbir-sucrose, Ages 12+ (Pfizer) 09/26/2021 COVID-19, MRNA-LNP, 23-24, P F, 30 MCG/0.3 mL, 12 YRS AND ABOVE, IM ([employer]-Comirnat) 03/22/2023 Covid-19, Mrna, Lnp-s, Pf, B ivalent, [...] Visit Internal Medicine Berna Azevedo MD [address] [place] [address] 04/15/2023 Office Visit Dermatology Rita Davis MD [address] [place] [address] 04/21/2023 Office Visit Internal Medicine Andrae Hays MD [address] [place] [address] 04/22/2023 Office Visit Ophthalmology Junior Mcnamara DO [address] [place] [address] 06/25/2023 Office Visit Cardiology Maacrio Liu MD [address] [place] [address] 11/07/2023 Office Visit Sleep Disorders Idania Garner CRNP [address] [place] [address] 11/27/2023 Office Visit Hematology Oncology Wilber Muniz MD [address] [facility] [place] [address] 12/08/2023 Telemedicine Pulmonary Ab Carlisle MD [address] [facility] [place] [address] Cart, Telemed Pulm Gw [address] [facility] [place] [address] Scheduled Procedures Name Priority Associated Diagnoses Date/Ti [...] D LEVEL ONCE IN A LIFETIME-USE SMARTSET# 96853 Completed 05/27/2022, 01/18/2021, 02/10/2020, Additional history exists [...] this encounter Medical Devices Implanted Type Area Commercial Loan Manager Device Identifier Shelf Expiration Date Model / Serial / Lot Lens 10.5 Sn60wf - [id number] Implanted:Qty: 1 on 04/27/2014 at OR [facility] Left: Eye [employer] 02/27/2019 SN60WF.105 / [id number] / Lens 12.5 Sn60wf - [id number] Implanted:Qty: 1 on 05/11/2014 at OR [facility] Right: Eye [employer] 02/27/2019 SN60WF.125 / [id number] / documented as of this encounter Advance [...] and were consensually agreed upon. Care Teams Tobacco Stemmer Relationship Specialty Start Date End Date Andrae Hays MD [address] [place] [id number] PCP - General Internal Medicine 04/10/16 documented as of this encounter
--- OUTSIDE RECORDS SUMMARY | 2023-05-22 13:02 | External Medical Summary | Summary of Care ---
Author Name Unknown Organization [facility] Address [address] [facility] [place] [address] Phone [phone] Care Team Providers Care Firewall Engineer Name Role Phone Andrae Hays MD Primary [...] Care Team Description 04/15/2023 Office Visit Dermatology [facility] [address] [place] [address] Rita Davis MD [address] [place] [address] Photoaged skin*; Hx of actinic keratosis; Skin [...] disorder with single episode, in partial remission ([facility]) Take by mouth 1 Capsule in the morning. 90 Capsule 3 04/16/2022 Active Albuterol Sulfate HFA 108 (90 Base) MCG/ACT Inhalation Aerosol Solution Inhale 2 Puffs by mouth every 4 hours as needed for Cough, Shortness of Breath or Wheezing. 36 g 1 07/18/2022 Active oxygen IN GASIndications:Chronic respiratory failure with hypoxia ([facility]) 1 LPM via nasal cannula with ambulation 1 Each 0 07/23/2022 Active Breo Ellipta 200-25 MCG/ACT Inhalation Aerosol Powder Breath Activated (fluticasone furoate-vilanterol)Ind ications:COPD, group B, by GOLD 2017 classification ([facility]) USE 1 INHALATION BY MOUTH DAILY 180 Each 3 07/25/2022 Active Ezetimibe 10 MG Oral Tablet (Zetia) Take 1 Tablet by mouth in the morning. 0 Active metFORMIN HCl 500 MG Oral Tablet (Glucophage)Indication s:Type 2 diabetes mellitus with hemoglobin A1c goal of less than 7.0% ([facility]) TAKE 1 TABLET BY MOUTH DAILY [...] hemoglobin A1c goal of less than 7.0% ([facility]) Test twice daily as directed. Dx [...] replacement status 03/28/2010 Overview: left Dr Doherty, [facility] Type 2 diabetes mellitus with hemoglobin A1c goal of less than 7.0% 06/07/2009 Overview: ICD-10 update of inactive term Vitamin D deficiency 05/25/2009 Primary localized osteoarthrosis, lower leg 03/23/2009 Osteoporosis 07/14/2002 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 Overview: [place] IgG monoclonol spike monoclonal gammopathy of undetermined [...] mRNA, LNP-s, No Pre serve, 2-Dose Series ([employer]) 02/23/2021,08/26/2020,08/05/2020 COVID-19, LNP-s, No Preserve , Jasbir-sucrose, [...] 0 Respiratory Therapy Supplies (NEBULIZER AIR TUBE/PLUGS) [facility] Use as directed 1 Each 0 Blood [...] Office Visit Internal Medicine Andrae Hays MD [address] [place] [address], [place] [address] 04/22/2023 Office Visit Ophthalmology Junior Mcnamara DO [address] [place] [address] 06/25/2023 Office Visit Cardiology Macario Liu MD [address] [place] [address] 11/07/2023 Office Visit Sleep Disorders Idania Garner CRNP [address] [place] [address] 11/27/2023 Office Visit Hematology Oncology Wilber Muniz MD [address] [place] [address] 12/08/2023 Telemedicine Pulmonary Ab Carlisle MD [address] [place] [address] Cart, Telemed Pulm Gw [address] [address] Scheduled Procedures Name Priority Associated Diagnoses Date/Ti [...] D LEVEL ONCE IN A LIFETIME-USE SMARTSET# 30745 Completed 05/27/2022, 01/18/2021, 02/10/2020, Additional history exists [...] this encounter Medical Devices Implanted Type Area Grout Machine Operator Device Identifier Shelf Expiration Date Model / Serial / Lot Lens 10.5 Sn60wf - [id number] Implanted:Qty: 1 on 04/27/2014 at [place] [facility] Left: Eye [employer] 02/27/2019 SN60WF.105 / [id number] / Lens 12.5 Sn60wf - [id number] Implanted:Qty: 1 on 05/11/2014 at [place] [facility] Right: Eye [employer] 02/27/2019 SN60WF.125 / [id number] / documented as of this encounter Visit [...] and were consensually agreed upon. Care Teams Firewall Engineer Relationship Specialty Start Date End Date Andrae Hays MD [address] [place] [address], [place] [address] PCP - General Internal Medicine 04/10/16 documented as of this encounter
--- OUTSIDE RECORDS SUMMARY | 2023-05-22 13:02 | External Medical Summary | Summary of Care ---
Author Name Unknown Organization [facility] Address [address] [place] [address] Phone [phone] Care Team Providers Care Consulting Marine Engineer Name Role Phone Andrae Hays MD Primary Care Provider + Reason for Referral * Evaluate & Treat - Unlimited Visits (Within 30 days (routine)) - Authorized Specialty Diagnoses / Procedures Referred By Contac t Referred To Contact CORPORATE TRAVEL CONSULTANT - Urogynecology / Gynecology Urology Diagnoses Cystocele with prolapse Andrae Hays MD [address] [place] [address] Referral ID Status Reason Start Date Expiration Date Visits Requested Visits Authorized [id number] Authorized Specialty Services Required [phone] Question Answer Referral Priority Within 30 days (routine) Where should this appointment be scheduled? [facility] What condition is the patient being referred for? Prolapse (dropped bladder, uterus, etc) * Evaluate & Treat - Unlimited Visits (Within 30 days (routine)) - Authorized Specialty Diagnoses / Procedures Referred By Contac t Referred To Contact Pulmonary Diseases / Pulmonary Diagnoses Chronic obstructive pulmonary disease with hypoxia (HCC) Moderate persistent asthma without complication Andrae Hays MD [address] [place] [address] Korey Ram MD [address] [place] [address] [address] Referral ID Status Reason Start Date Expiration Date Visits Requested Visits Authorized [id number] Authorized Specialty Services Required [phone] Question Answer Referral Priority Within 30 days (routine) Where should this appointment be scheduled? [facility] Primary Reason for Referral? Asthma/COPD Reason for Visit * Reason Comments Follow Up 4 month follow up. P atient presents with concerns for cardiology appt and medications. Encounter Details Date Type Department Care Team (Latest Contact Info) Description 04/21/2023 9:20 AM EDT Office Visit General Internal Medicine [facility] [place] [address] [facility] [place] [address] Andrae Hays MD [address] [facility] [address] Type 2 diabetes mellitus with hemoglobin A1c goal of less than 7.0% ([facility])*; Chronic obstructive pulmonary disease with hypoxia ([facility]); MGUS (monoclonal gammopathy of unknown significance); Obesity, morbid (more than 100 lbs over ideal weight or BMI > 40) ([facility]); Paroxysmal SVT (supraventricular tachycardia); Vitamin D deficiency; Diabetic polyneuropathy associated with type 2 diabetes mellitus ([facility]); Leukocytosis, unspecified type; HTN, goal below 140/90; Major depressive disorder with single episode, in partial remission ([facility]); Acute diverticulitis; Non-seasonal allergic rhinitis due to pollen; Moderate persistent asthma without complication; Chronic edema; Cystocele with prolapse Allergies Active Allergy Reactions Criticality Noted Date [...] as of this encounter (statuses as of 04/21/2023) Medications Medication Sig Dispensed Refills Start Date [...] dications:COPD, group B, by GOLD 2017 classification ([facility]) USE 1 INHALATION BY MOUTH DAILY 180 Each 3 07/25/2022 Active Ezetimibe 10 MG Oral Tablet (Zetia) Take 1 Tablet by mouth in the morning. 0 Active metFORMIN HCl 500 MG Oral Tablet (Glucophage)Indicatio ns:Type 2 diabetes mellitus with hemoglobin A1c goal of less than 7.0% ([facility]) TAKE 1 TABLET BY MOUTH [...] goal of less than 7.0% ([facility]) Test twice daily as directed. Dx E11.9. 100 Strip 5 01/21/2023 Active Verapamil HCl ER 180 MG Oral Tablet Extended Release (Isoptin SR)Indications:SVT (supraventricular tachycardia),HTN, goal below 140/90 Take 1 Tablet by mouth in the morning. 90 Tablet 3 04/11/2023 Active Amoxicillin-Pot Clavulanate 875-125 MG Oral Tablet (Augmentin)Indication s:Diverticulitis of colon Take 1 Tablet by mouth in the morning and 1 Tablet before bedtime. Do all this for 10 days. 20 Tablet 0 04/15/2023 04/25/20 Active Furosemide 20 MG Oral Tablet (Lasix)Indications:Ch ronic edema Take one 1-2 days per week as needed for fluid retention 20 Tablet 5 04/21/2023 Active Spironolactone 25 MG Oral Tablet (Aldactone)Indication s:HTN, goal below 140/90 Take 0.5 Tablets by mouth in the morning. 45 Tablet 1 04/21/2023 Active Furosemide 20 MG Oral Tablet (Lasix) Take one 1-2 days per week as needed for fluid retention 20 Tablet 5 10/31/2021 04/21/20 Discontinu ed(Refill) FLUoxetine HCl 10 MG Oral Capsule (PROzac)Indications:M ajor depressive disorder with single episode, in partial remission (HCC) Take by mouth 1 Capsule in the morning. 90 Capsule 3 04/16/2022 04/21/20 Discontinu ed(Patient preference /discontin uation) Spironolactone 25 MG Oral Tablet (Aldactone)Indication s:HTN, goal below 140/90 TAKE 1 TABLET BY MOUTH DAILY 90 Tablet 3 03/17/2023 04/21/20 Discontinu ed(Refill) Spironolactone 25 MG Oral Tablet (Aldactone)Indication s:HTN, goal below 140/90 Take 0.5 Tablets by mouth in the morning. 0 04/21/2023 04/21/20 Discontinu ed(Patient preference /discontin uation) documented as of this encounter (statuses as of 04/21/2023) Active Problems Problem Noted Date Diagnosed Date [...] replacement status 03/28/2010 Overview: left Dr Doherty, [facility] Type 2 diabetes mellitus wit h hemoglobin A1c goal of less than 7.0% 06/07/2009 Overview: ICD-10 update of inactive term Vitamin D deficiency 05/25/2009 Primary localized osteoarthrosis, lower leg 03/01 Osteoporosis 07/14/2002 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 Overview: Carefree 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 Irritable bowel syndrome Chronic sinusitis MASSIMO on CPAP Overview: CPAP 7 cwp 3 LPM AHP documented as of this encounter (statuses as of 04/21/2023) Resolved Problems Problem Noted Date Diagnosed Date Resolved Date Neuropathy 05/22/2020 07/23/2021 Retinal tear, left 04/01/2018 9 Retina hole, left 04/01/2018 12/04/2018 Class 2 obesity with alveola r hypoventilation and serious comorbidity in adult 09/24/201706/17/ 019 Diabetic cataract 05/13/2017 09/24/2017 Body mass [...] as of this encounter (statuses as of 04/21/2023) Immunizations Name Administration Dates Next Due COVID-19 mRNA, LNP-s, No Pre serve, 2-Dose Series ([employer]) 02/23/2021,08/26/2020,08/05/2020 COVID-19, LNP-s, No Preserve , Jasbir-sucrose, Ages 12+ (Pf[employer]) 09/26/2021 COVID-19, MRNA-LNP, 23-24, P F, 30 MCG/0.3 mL, 12 YRS AND ABOVE, IM ([facility]) 03/22/2023 Covid-19, Mrna, Lnp-s, Pf, B ivalent, 30 Mcg, IM, 12 yrs and above ([employer]) 03/08/2022 H1N1 2009 Influenza, IM 07/19/2009 PPD [...] Tobacco: Former Cigarettes 1 30 Q uit: 2015 Smokeless Tobacco: Never Tobacco Cessation:Counseling Given: Not [...] money to buy more. Never true 11/20/19 Within the past 12 months, t he [...] Sign Reading Time Taken Comments Blood Pressure 112/66 04/21/2023 9:25 AM EDT Pulse 79 04/21/2023 9:25 AM EDT Temperature 36.3 C (97.3 F) 04/21/2023 9:25 AM ED T Respiratory Rate - - Oxygen Saturation 95% 04/21/2023 9:25 AM EDT Inhaled Oxygen Concentration - - Weight 104.2 kg (229 lb 11.2 oz) 04/21/2023 9:25 AM EDT Height 158.8 cm (5' 2.5") 04/21/2023 9:25 AM EDT Body Mass Index 41.34 04/21/2023 9:25 AM EDT documented in this [...] No 09/29/2015 documented as of this encounter Patient Instructions * Patient Instructions* Ignacio Castillo, GAIL - 04/21/2023 9:27 AM EDT Diabetes: Keeping Feet Healthy Inspect your feet every day for signs of a problem. Diabetes can damage nerves in your feet and cause neuropathy. This condition makes it hard for you to feel injuries or sore spots. Diabetes can also change blood flow, making it harder for small problems, like a blister, to heal properly. In fact, minor injuries can quickly become serious infections that send you to the hospital. Practice self-care to protect your feet and keep them healthy. Take Special Care Inspect your feet daily for problems such as redness, blisters, cracks, dry skin, or numbness. Use a mirror to see the bottoms of your feet. Or, ask for help. Manage your diabetes. Monitor and control your blood sugar. Take all your medications as prescribed. Avoid walking barefoot, even indoors. Wash your feet with warm water and mild soap. Dry well, especially between toes. Dont treat corns or calluses yourself. Talk to your doctor or tree wrapper (a doctor who specializes in foot care) if you need assistance trimming your toenails. Use moisturizing cream or lotion if you have dry skin, but dont use it between toes. Dont use heating pads on your feet. If you have neuropathy, you could get a burn and not feel it. Stop smoking. Smoking restricts blood flow and can make it harder for wounds to heal. Have Regular Checkups Foot problems can develop quickly. So be sure to follow your healthcare teams schedule for regular checkups. During office visits, take off your shoes and socks as soon as you get in the exam room. Ask your healthcare provider to examine your feet for problems. This will make it easier to find and treat small skin irritations before they get worse. Regular checkups can also help keep track of the blood flow and feeling in your feet. If you have neuropathy, you may need to have checkups more often. Wear Proper Footwear Wearing proper footwear is very important. If areas of your feet have been damaged by too much pressure, your healthcare provider may recommend changing your footwear. In some cases, avoiding high heels or tight work boots may be all thats needed. Or, your healthcare provider may recommend special shoes or custom inserts. These help protect your feet and keep existing irritations from getting worse. If you need special footwear, ask your healthcare provider if you qualify for [employer] diabetic shoe program. Make Sure Shoes and Socks Fit Any pair of shoes--new or old--should feel comfortable as soon as you put them on. There shouldnt be any rubbing when you walk. Wear the right shoe for any activity. For instance, a running shoe is designed to keep your feet injury-free while jogging. Buy shoes at the end of the day, when your feet are larger. Make sure they provide support without feeling too loose. Make sure your socks fit, t oo. Wear soft, seamless, well-padded socks for activity. Cotton or microfiber socks are best to help to absorb sweat. To protect your feet, avoid shoes that are open-toed or open-heeled. If you have questions about what kinds of shoes and socks are best, talk to your healthcare team. Get Regular Exercise Regular exercise improves blood flow in your feet. It also increases foot strength and flexibility.Gentle exercises, like walking or riding a stationary bicycle, are best. You can also do special foot exercises. Just be sure to talk with your healthcare provider before starting any exercise program. Also mention if any exercise causes pain, redness, or other signs of foot problems. Note: If you have any kind of break in the skin of your foot or ankle, keep the area clean. Then call your doctor--especially if the area doesnt appear to be healing. [id number] [employer], [address] [place] [address], [place] [address]. All rights reserved. This information is not intended as a substitute for professional medical care. Always follow your healthcare professional's instructions. documented in this encounter Progress Notes * Andrae Hays MD - 04/21/2023 10:05 AM EDT Chief Complaint Patient presents with Follow Up 4 month follow up. Patient presents with concerns for cardiology appt and medications. SUBJECTIVE: Marycruz Cano is a 77 year old female with PMH as below who presents for follow up COPD/asthma, massimo, lipids, depression, SVT, chronic edema. No cp, pressure, no svt episodes. Chronic edema ongoing, taking aldactone 12.5 mg daily, 25 mg caused too much breast pain and urinary urgency. She is willing to re-try lasix for chronic edema. No falls. Breathing stable, but due to see pulm. Would also like to see cardiology to assess cardiac meds, flecainide. Mood is good, feels would like trial off ssri. Also has cystocele which sometimes causes urinary issues. Patient Active Problem List Diagnosis Code MGUS (monoclonal gammopathy of unknown significance) D47.2 Osteoporosis M81.0 Irritable bowel syndrome K58.9 Chronic sinusitis J32.9 Primary localized osteoarthrosis, lower leg M17.10 Vitamin D deficiency E55.9 Type 2 diabetes mellitus with hemoglobin A1c goal of less than 7.0% ([facility]) E11.9 Knee joint replacement status Z96.659 [...] Z86.69 History of epistaxis Z87.898 Diabetic polyneuropathy ([facility]) E11.42 DISH (diffuse idiopathic skeletal hyperostosis) M48.10 RLS (restless legs syndrome) G25.81 Major depressive disorder with single episode, in partial remission ([facility]) F32.4 Paroxysmal SVT (supraventricular tachycardia) I47.10 Statin intolerance Z78.9 Bronchiectasis without complication ([facility]) J47.9 History of tobacco abuse Z87.891 At risk for aspiration Z91.89 Dysphagia R13.10 Pulmonary nodules R91.8 COPD, group B, by GOLD 2017 classification ([facility]) J44.9 S/P ablation operation for arrhythmia Z98.890, Z86.79 Angiomyolipoma of right kidney D17.71 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 Dx E11.9. 100 Strip 5 Verapamil HCl ER 180 MG Oral Tablet [...] mouth in the morning. 45 Tablet 1 No current facility-administered medications for this visit. [...] OSTEOPOROSIS (REFER TO SMARTSET #[id number]) Never done DIABETES-EYE EXAM 09/28/2022 Albumin/Creatinine Ratio 05/16/2023 ROS: CONSTITUTIONAL: No fevers, sweats, or chills EYE: No recent significant change in vision and No eye pain, redness, discharge EARS: No ear pain, No drainage, No tinnitus or vertigo, and No recent change in hearing PULMONARY: No recent change in breathing CARDIOVASCULAR: No chest pain, No orthopnea, No paroxysmal nocturnal dyspnea, No palpitations, and No syncope GASTROINTESTINAL: No significant heartburn, No significant change in appetite, No hematemesis, No blood in stools or black tarry stools, No abdominal bloating or early satiety, and No dysphagia and diverticulitis better ALL OTHER SYSTEMS NEGATIVE I reviewed social, PMH, PSH, and family history and updated where needed. 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 64 Employer: [employer] Tobacco Use Smoking status: Former Packs/day: 1.00 Years: 30.00 Additional pack years: 0.00 Total pack years: 30.00 Types: Cigarettes Quit date: 2015 Years since quittin.8 Smokeless tobacco: Never Vaping [...] on file Food Insecurity: No Food Insecurity (11/19/2022) Hunger Vital Sign Worried About Running Out [...] Depressive disorder, not elsewhere classified Diabetic polyneuropathy ([facility]) 09/24/2017 Diastolic dysfunction 04/29/2017 Diverticulosis of colon [...] joint replacement status 03/28/[address] Doherty, [facility] Lung nodule 02/11/2020 Menopause 1944 started ERT at that time Need for prophylactic hormone replacement therapy (postmenopausal) age 43 Neuropathy 05/22/2020 No advance directive on file 01/23/2005 Yes, Patient instructed to provide copy of advance directive for provider to review and to be scanned into Electronic Medical Record Nocturnal hypoxia 12/25/2015 MASSIMO on CPAP 02/13/2005 on CPAP Osteoporosis osteopenia Other paraproteinemias 08/1999 Carefree 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 Paroxysmal SVT (supraventricular tachycardia) 05/26/2018 Retina hole, left 04/01/2018 Retinal tear left eye Senile nuclear cataract 02/17/2014 Tim Sleep apnea, obstructive Special screening for osteoporosis 06/2002 3-4 % decline compared to 1999, repeat in 2005 Past Surgical History: Procedure Laterality Date ABLATE HEART DYSRHYTHM FOCUS 12/2018 ARTHROPLASTY KNEE TOTAL 03/28/2010 Rogchiny, left at [facility] CAROTID (INTERNAL) ARTERY CATHETHER PLACEMENT Left 09/29/2015 CATHETER PLACEMENT INTERNAL CAROTID ARTERY performed by Nehemias Wells MD at [facility] DELIVERY 1969, 1972 x 2 COLONOSCOPY W/ LESION REMOVAL, SNARE 07/23/2011 Hyperplastic polyp,severe diverticulosiss,repeat colonoscopy 5 years COLORECTAL CANCER SCREEN; COLON 01/07/2002 normal repeat in 10 years, Dr Seals, [facility] DENTAL SURGERY PROCEDURE NEC 1961 wisdom teeth DEXA SCAN/BONE MINERAL AXIAL 2002 repeat in 2002, osteopenia noted, repeat 06 DEXA SCAN/BONE MINERAL AXIAL 07/25/2009 normal, low risk repeat 2011 EGD, FLEXIBLE, DIAGNOSTIC 03/20/2017 normal/[facility] EGD, FLEXIBLE, DIAGNOSTIC N/A 08/30/2022 [facility], EGD, z-line found 36 cm normal / entire esophagus with a Savary dilator at 18mm / biopsies show mild chronic gastritis / ELECTROPHYSIOLOGY EVAL & ABLATE SVT N/A 04/14/2020 SVT EPS AND CATHETER ABLATION performed by Linda Camp IV, MD at CARDIAC LABS [facility] FLUORO BARIUM ENEMA 04/24/1998 extensive [...] reccm. NASAL ENDOSCOPY, DX W/S[facility]USOSCOPY [facility],TOTAL ETHMOIDECTOMY 05/09/[facility] OTHER (INFORMATION) ACT 112 SIGNED 09/28/21 DR. MCNAMARA PULMONARY FUNCTION TEST SCREEN 10/04/1998 moderate obstruction REMOVE CATARACT, INSERT LENS PROSTH 04/27/2014 EXTRACAPSULAR CATARACT REMOVAL WITH INTRAOCULAR LENS performed by Antony Dumont MD at [facility] REMOVE CATARACT, INSERT LENS PROSTH 05/11/2014 EXTRACAPSULAR CATARACT REMOVAL WITH INTRAOCULAR LENS performed by Antony Dumont MD at [facility] REMOVE CATARACT, INSERT LENS PROSTH 05/11/2014 EXTRACAPSULAR CATARACT REMOVAL WITH INTRAOCULAR LENS performed by Antony Dumont MD at [facility] REMOVE GALLBLADDER 06/30/1996 laporscopic cholecystectomy, Dr Gunderson, [place], [place] REMOVE TONSILS & ADENOIDS, UNDER 12 1953 SINUS SURGERY PROCEDURE NEC 01/1999 with deviated septum repair, Dr Vidal, SMALL BOWEL ENDOSCOPY W/BX 07/03/2010 small sliding hiatal hernia, normal tissue bx TENDON SHEATH INCISION, FINGER 2007 right [place] THROMBOENDARECTOMY W/PATCH,NECK INCISION Left 09/29/2015 CAROTID ENDARTERECTOMY performed by Nehemias Wells MD at [place] [facility] TOTAL ABD HYSTERECTOMY W/WO REMOVAL OF TUBE(S) [...] FH of AAA OBJECTIVE: PHYSICAL EXAM: BP 112/66 | Pulse 79 | Temp 36.3 C (97.3 F) | Ht 1.588 m (5' 2.5") | Wt 104.2 kg (229 lb 11.2 oz) | SpO2 95% | BMI 41.34 kg/m | BSA 2.14 m General: alert, healthy, and no distress Head: Normocephalic, No masses, lesions, tenderness or abnormalities Eye Exam: conjunctiva are pink and non-injected, sclera clear Ears: External ears normal, Canals clear, TM's Normal Heart: regular rate & rhythm, no murmur, no gallops, PMI non-displaced, S-1 normal, and S-2 normal Lungs: expiratory wheezes bilaterally Extremities: no clubbing, no cyanosis, edema bilateral ankles Psych: normal affect, no flight of ideas or tangential thought, good eye contact, no pressured speech Neuro: stands on own, uses walker ASSESSMENT: E11.9 Type 2 diabetes mellitus with hemoglobin A1c goal of less than 7.0% ([facility]) (primary encounter diagnosis) J44.9 Chronic obstructive pulmonary disease with hypoxia ([facility]) D47.2 MGUS (monoclonal gammopathy of unknown significance) E66.01 Obesity, morbid (more than 100 lbs over ideal weight or BMI > 40) ([facility]) I47.10 Paroxysmal SVT (supraventricular tachycardia) E55.9 Vitamin D deficiency E11.42 Diabetic polyneuropathy associated with type 2 diabetes mellitus ([facility]) D72.829 Leukocytosis, unspecified type I10 HTN, goal below 140/90 F32.4 Major depressive disorder with single episode, in partial remission ([facility]) K57.92 Acute diverticulitis J30.1 Non-seasonal allergic rhinitis due to pollen J45.40 Moderate persistent asthma without complication R60.9 Chronic edema N81.4 Cystocele with prolapse PLAN: Type 2 diabetes mellitus with hemoglobin A1c goal of less than 7.0% ([facility]) (Primary) - DIABETES FOOT EXAM - HEMOGLOBIN A1C; Future; Expected date: 04/21/2023 Cont metformin Labs next month Chronic obstructive pulmonary disease with hypoxia ([facility]) - LOEGM-3-BFFSNCULPML, QN; Future; Expected date: 05/22/2023 - PULMONARY REFERRAL OP - BASIC METABOLIC PANEL; Future; Expected date: 04/21/2023 Cont breo, inhaler, will get to pulm, perhaps [facility] as she has issues getting here MGUS (monoclonal gammopathy of unknown significance) Cont f/u oncology Obesity, morbid (more than 100 lbs over ideal weight or BMI > 40) ([facility]) Trend weights Paroxysmal SVT (supraventricular tachycardia) Has been markedly better controlled She is wondering if tolerating flecainide ok, will see if can move up Vitamin D deficiency Recheck next month Diabetic polyneuropathy associated with type 2 diabetes mellitus ([facility]) - ALBUMIN / CREATININE RATIO, URINE; Future; Expected date: 04/21/2023 Leukocytosis, unspecified type - CBC WITH WBC DIFFERENTIAL; Future; Expected date: 05/22/2023 Perhaps from infection Recheck next month HTN, goal below 140/90 Cont aldactone, verapamil, losartan Major depressive disorder with single episode, in partial remission (HCC) Trial off ssri Acute diverticulitis Better Finish abx Non-seasonal allergic rhinitis due to pollen Cont allergy med Moderate persistent asthma without complication - PULMONARY REFERRAL OP Chronic edema - Furosemide 20 MG Oral Tablet (Lasix); Take one 1-2 days per week as needed for fluid retention Will recheck bmp next labs Cystocele with prolapse - UROGYNECOLOGY CLINIC REFERRAL OP (FEMALE ONLY) Await urine I spent a total of 40-54 minutes (exact time 40 mins) on the date of service in preparation, delivery, and documentation of the care provided to Marycruz Cano excluding any time spent in the performance of separately billed services. Follow-up: Return in about 4 months (around 08/22/2023), or if symptoms worsen or fail to improve. |Check-out note: Please put on cancellation list for sooner Dr. Noe Hays MD * Ignacio Castillo CMA - 04/21/2023 9:27 AM EDT DM Foot Exam completed today. Provider aware. Ignacio Castillo CMA Socks and Shoes Removed for Annual Diabetic Foot Screening RIGHT FOOT: No Reddened, Cracking, Or Open Areas Noted. RIGHT Dorsalis Pedis Pulse: Palpable RIGHT Posterior Tibial Pulse: Palpable RIGHT Monofilament:Patient reports feeling monofilament pressure on plantar surface of foot LEFT FOOT: No Reddened, Cracking or Open Areas Noted. LEFT Dorsalis Pedis Pulse: Palpable LEFT Posterior Tibial Pulse: Palpable LEFT Monofilament:Patient reports feeling monofilament pressure on plantar surface of foot Do you need diabetic shoes: No documented in this encounter Nursing Notes * Ignacio Castillo CMA - 04/21/2023 9:23 AM EDT Chief Complaint Patient presents with Follow Up 4 month follow up. Patient presents with concerns for cardiology appt and medications. documented in this encounter Plan of Treatment Upcoming Encounters Date Type Department Care Team (Late st Contact Info) Description 04/22/2023 1:15 PM EDT Office Visit Ophthalmology, [facility] [address] [place] [place] [address] Junior Mcnamara DO [address] [place] [address] 04/28/2023 12:35 PM EDT Office Visit Urogynecology [facility] [address] [place] [address] Neel James MD [address] [place] [address] Nurse Dick Whitfield [address] [place] [address] 06/25/2023 1:30 PM EST Office Visit Cardiology, [facility] [address] [place] [address] Macario Liu MD [address] [place] [address] 08/22/2023 11:20 AM EST Office Visit General Internal Medicine [facility] [address] [place] [address] Andrae Hays MD [address] [facility] [place] [address] 11/07/2023 11:00 AM EDT Office Visit Sleep Disorders C[facility] [address] [place] [id number] Idania Garner CRNP [address] [place] [address] 11/27/2023 1:45 PM EDT Office Visit Hematology/Oncology [facility] [address] [facility] [place] [address] Wilber Muniz MD [address] [facility] [place] [address] 12/08/2023 11:40 AM EDT [facility] [address] [place] [address] Ab Carlisle MD [address] [place] [address] Cart, Telemed Pulm Gw [address] [place] [address] Scheduled Orders Name Type Priority Associated Diagnoses Orde r Schedule ALBUMIN / CREATININE RATIO, URINE Lab Routine Diabetic polyneuropathy associated with type 2 diabetes mellitus (HCC) Expected: 04/21/2023 (Approximate), Expires: 04/21/2024 [id number], QN Lab Routine Chronic obstructive pulmonary disease with hypoxia (HCC) Expected: 05/22/2023 (Approximate), Expires: 04/21/2024 CBC WITH WBC DIFFERENTIAL Lab Routine Leukocytosis, unspecified type Expected: 05/22/2023 (Approximate), Expires: 04/21/2024 HEMOGLOBIN A1C Lab Routine Type 2 diabetes mellitus with hemoglobin A1c goal of less than 7.0% (HCC) Expected: 04/21/2023 (Approximate), Expires: 04/20/2024 BASIC METABOLIC PANEL Lab Routine Chronic obstructive pulmonary disease with hypoxia (HCC) Expected: 04/21/2023 (Approximate), Expires: 04/20/2024 25-HYDROXY VITAMIN D Lab Routine Vitamin D deficiency Expected: 04/21/2023 (Approximate), Expires: 04/20/2024 Scheduled Procedures Name Priority Associated Diagnoses Date/Ti me COLONOSCOPY FLEXIBLE PROXIMA L DIAGNOSTIC Recall Hx of diverticulitis of colon Scheduled Referrals Name Type Priority Associated Diagnoses Orde r Schedule PULMONARY REFERRAL OP Referral Within 30 days (routine) Chronic obstructive pulmonary disease with hypoxia (HCC) Moderate persistent asthma without complication Ordered: 04/21/2023 UROGYNECOLOGY CLINIC REFERRAL OP (FEMALE ONLY) Referral Within 30 days (routine) Cystocele with prolapse Ordered: 04/21/2023 Health Maintenance Due Date Last Done Comments [...] 10/18/2021, Additional history exists GFR 04/04/2024 04/04/2023, 0601/2023, 08/23/2022, Additional history exists O2 ASSESSMENT COMPLETED IN PAST YEAR FOR COPD 04/15/2024 04/15/2023 Diabetic Foot Exam 04/21/2024 04/21/2023, 1 07/16/2021, 04/16/2021, Additional history exists DTaP,Tdap,and Td Vaccines (3 - Td or Tdap) 12/09/2031 12/08/2021, 02/11/2008, 10/16/1992 Hepatitis B Completed 05/14/2002, 11/28, 10/15/2001, Additional history exists DXA Scan Discontinued 08/02/2015, 07/02, 07/29/2011, Additional history exists Pneumococcal Vaccine: 65+ Years Completed 09/24/2017, 04/28/2015, 03/23/2009 VITAMIN D LEVEL ONCE IN A LIFETIME-USE SMARTSET# [id number] Completed 05/27/2022, 01/18/2021, 02/10/2020, Additional history exists [...] encounter Medical Devices Implanted Type Area Commercial Stripper Device Identifier Shelf Expiration Date Model / Serial / Lot Lens 10.5 [id number] - [id number] Implanted:Qty: 1 on 04/27/2014 at [place] [facility] Left: Eye [employer] 02/27/2019 SN60WF.[id number] / [id number] / Lens 12.5 Sn60wf - [id number] Implanted:Qty: 1 on 05/11/2014 at OR [facility] Right: Eye [employer] 02/27/2019 SN60WF.125 / [id number] / documented as of this encounter Visit Diagnoses Diagnosis Type 2 diabetes mellitus with hemoglobin A1c goal of less than 7.0% (HCC)- Primary Chronic obstructive pulmonary disease with hypoxia (HCC) MGUS (monoclonal gammopathy of unknown significance) Monoclonal paraproteinemia Obesity, morbid (more than 100 lbs over ideal weight or BMI > 40) (HCC) Morbid obesity Paroxysmal SVT (supraventricular tachycardia) Paroxysmal supraventricular tachycardia Vitamin D deficiency Unspecified vitamin D deficiency Diabetic polyneuropathy associated with type 2 diabetes mellitus (HCC) Leukocytosis, unspecified type HTN, goal below 140/90 Unspecified essential hypertension Major depressive disorder with single episode, in partial remission (HCC) Acute diverticulitis Diverticulitis of colon (without mention of hemorrhage) Non-seasonal allergic rhinitis due to pollen Moderate persistent asthma without complication Unspecified asthma Chronic edema Edema Cystocele with prolapse documented in this encounter Advance Directives Latest [...] and were consensually agreed upon. Care Teams Consulting Marine Engineer Relationship Specialty Start Date End Date Andrae Hays MD [address] [place] [address] PCP - General Internal Medicine 04/10/16 documented as of this encounter
--- OUTSIDE RECORDS SUMMARY | 2023-05-22 13:02 | External Medical Summary | Summary of Care ---
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 Name Role Phone Andrae Hays MD Primary Care Provider + Reason for Referral * Precert (Within 10 days (routine)) - Authorized Specialty Diagnoses / Procedures Referred By Contac t Referred To Contact Cardiac Studies Diagnoses Paroxysmal SVT (supraventricular tachycardia) AVNRT (AV carleen re-entry tachycardia) Dyspnea on exertion Leg swelling Procedures ECHO, COMPLETE (2D), TRANS-THORACIC Nila Macdonald CRNP [address] [place] [address] Referral ID Status Reason Start Date Expiration Date V isits Requested Visits Authorized [id number] Authorized Precert 04/04/2023 999 999 Reason for Visit * Reason Comments Follow Up Encounter Details Date Type Department Care Team Description 04/04/2023 Office Visit Cardiology, [facility] [address] [place] [address] Nila Macdonald CRNP [address] [place] [address] Paroxysmal SVT (supraventricular tachycardia)*; AVNRT (AV carleen re-entry tachycardia); Dyspnea on exertion; Leg swelling Allergies Active Allergy Reactions Severity Noted Date [...] as of this encounter (statuses as of 04/12/2023) Medications Medication Sig Dispensed Refills Start Date End Date Status ADULT MASK DEVIIndications:Slee p apnea,Asthma, allergic as directed 1 2 07/31/19 06 Active NEBULIZER COMPRESSOR KITIndications:Asthm a, allergic Use as directed 1 Kit 0 04/10/20 12 Active VITAMIN D 1000 UNITS PO CAPS 1 dailly 0 Active Aspirin 81 MG Oral Tablet Delayed Release Take 1 Tablet by mouth in the morning. 0 Active oxygen GAS 3 LPM bled through CPAP 7 cwp during all hours of sleep. 1 Each 0 11/17/19 16 Active Respiratory Therapy Supplies (NEBULIZER AIR TUBE/PLUGS) MISCIndications:Asth ma, allergic Use as directed 1 Each 0 12/18/19 17 Active Blood Glucose Monitoring Suppl (CONTOUR NEXT ONE) KITIndications:Type 2 diabetes mellitus with hemoglobin A1c goal of less than 7.0% (HCC) Use as directed. Dx E11.9 1 Kit 0 04/03/20 18 Active acetaminophen (TYLENOL) 500 MG Tablet Take 1 Tablet by mouth every 8 hours as needed. 100 Tab 0 03/15/20 19 Active Simethicone 125 MG CAPS Take 1 Tab by mouth as needed. 0 Active Melatonin ER 1 MG TBCR Take 1 Tab by mouth at bedtime. 0 Active Accu-Chek FastClix Lancets MISCIndications:Type 2 diabetes mellitus with hemoglobin A1c goal of less than 7.0% (HCC) Test twice daily as directed. Pt has this style lancing device at home already. DX E11.9 100 Each 5 02/18/20 20 Active Centrum Silver 50+Women Oral Tablet Take 1 Tab by mouth daily. 0 Active Fexofenadine HCl 180 MG Oral Tablet Take 1 Tablet by mouth in the morning. 0 Active Furosemide 20 MG Oral Tablet (Lasix) Take one 1-2 days per week as needed for fluid retention 20 Tablet 5 11/01/19 22 Active Mupirocin 2 % External Ointment (Bactroban) NEEDED 0 12/01/19 22 Active FLUoxetine HCl 10 MG Oral Capsule (PROzac)Indications: Major depressive disorder with single episode, in partial remission (HCC) Take by mouth 1 Capsule in the morning. 90 Capsule 3 04/16/20 22 Active Albuterol Sulfate HFA 108 (90 Base) MCG/ACT Inhalation Aerosol Solution Inhale 2 Puffs by mouth every 4 hours as needed for Cough, Shortness of Breath or Wheezing. 36 g 1 07/18/19 23 Active oxygen IN GASIndications:Chron ic respiratory failure with hypoxia ([facility]) 1 LPM via nasal cannula with ambulation 1 Each 0 07/23/19 23 Active Breo Ellipta 200-25 MCG/ACT Inhalation Aerosol Powder Breath Activated (fluticasone furoate-vilanterol)I ndications:COPD, group B, by GOLD 2017 classification ([facility]) USE 1 INHALATION BY MOUTH DAILY 180 Each 3 07/25/19 23 Active Ezetimibe 10 MG Oral Tablet (Zetia) Take 1 Tablet by mouth in the morning. 0 Active metFORMIN HCl 500 MG Oral Tablet (Glucophage)Indicati ons:Type 2 diabetes mellitus with hemoglobin A1c goal of less than 7.0% ([facility]) TAKE 1 TABLET BY MOUTH DAILY WITH BREAKFAST 90 Tablet 2 09/01/19 23 Active Losartan Potassium 100 MG Oral Tablet (Cozaar)Indications: HTN, goal below 140/90 TAKE 1 TABLET BY MOUTH ONCE DAILY 90 Tablet 3 10/11/19 23 Active Hydrocortisone (Perianal) 2.5 % External Cream (Anusol-HC)Indicatio ns:Hemorrhoids, unspecified hemorrhoid type Administer into the rectum 2 times a day. 28 g 3 10/13/19 23 Active Levalbuterol HCl 0.63 MG/3ML Inhalation Nebulization Solution (Xopenex) Inhale 3 mL via nebulizer every 6 hours as needed for Wheezing or Shortness of Breath. Dx J44.9 270 mL 3 11/23/19 23 Active Flecainide Acetate 50 MG Oral Tablet (Tambocor)Indication s:PSVT (paroxysmal supraventricular tachycardia),AVNRT (AV carleen re-entry tachycardia) TAKE ONE TABLET BY MOUTH TWICE A DAY (MORNING AND BEFORE BEDTIME) 180 Tablet 3 01/02/20 23 Active Famotidine 20 MG Oral Tablet (Pepcid)Indications: GERD (gastroesophageal reflux disease) TAKE 1 TABLET BY MOUTH TWICE DAILY 180 Tablet 3 01/11/20 23 Active Contour Next Test In Vitro Strip (Glucose Blood)Indications:Ty pe 2 diabetes mellitus with hemoglobin A1c goal of less than 7.0% ([facility]) Test twice daily as directed. Dx E11.9. 100 Strip 5 01/22/20 23 Active Spironolactone 25 MG Oral Tablet (Aldactone)Indicatio ns:HTN, goal below 140/90 TAKE 1 TABLET BY MOUTH DAILY 90 Tablet 3 03/17/20 23 Active Additional Information Patient taking differently: 12.5 mg Daily(AM), Reported on 04/04/2023 Elastic Bandages & Supports (MEDICAL COMPRESSION STOCKINGS) MISC Wear compression stockings during the day. Take off at night 2 Each 0 11/17/19 19 023 Discontinued Verapamil HCl ER 180 MG Oral Tablet Extended Release (Isoptin SR)Indications:SVT (supraventricular tachycardia),HTN, goal below 140/90 Take by mouth 1 Tablet in the morning. 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 Overview: [place] 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 Irritable bowel syndrome Chronic sinusitis MASSIMO on CPAP Overview: CPAP 7 cwp 3 LPM AHP documented as of this encounter (statuses as of 04/12/2023) Resolved Problems Problem Noted Date Resolved Date [...] as of this encounter (statuses as of 04/12/2023) Immunizations Name Administration Dates Next Due COVID-19 mRNA, LNP-s, No Pre serve, 2-Dose Series (Worklight) 02/23/2021,08/26/2020,08/05/2020 COVID-19, LNP-s, No Preserve , Jasbir-sucrose, Ages 12+ (Pfizer) 09/26/2021 COVID-19, MRNA-LNP, 23-24, P F, 30 MCG/0.3 mL, 12 YRS AND ABOVE, IM (Giftology-Comirnat) 03/22/2023 Covid-19, Mrna, Lnp-s, Pf, B ivalent, 30 Mcg, IM, 12 yrs and above (Worklight) 03/08/2022 H1N1 2009 Influenza, IM 07/19/2009 PPD [...] Sign Reading Time Taken Comments Blood Pressure 120/78 04/04/2023 2:23 PM EDT Pulse 80 04/04/2023 2:23 PM EDT Temperature - - Respiratory Rate - - Oxygen Saturation - - Inhaled Oxygen Concentration - - Weight 103 kg (227 lb) 04/04/2023 2:23 PM EDT Height - - Body Mass Index 40.86 12/06/2022 11:20 AM EDT documented in this [...] as of this encounter Progress Notes * GUIDO Newsome - 04/04/2023 2:30 PM EDT 04/04/2023 Cardiology Follow Up Primary Floor Mechanic: Dr. Liu Cardiac Problems: 1. Paroxysmal supraventricular tachycardia/AV carleen reentry tachycardia [...] nucleartesting) 7. Hyperlipidemia with poor statin tolerance HPI: Marycruz Cano is a 77 year old female presents for routine cardiology follow up. Patient was last seen in our office by Dr. Liu on 08/09/22. He was feeling ok at that time, but had complained of increased Urination at night; however, had stated that she has had an increase in lower extremity edema and abdominal girth since stopping his aldactone (on her own) Patient was recommended to restart Spironolactone 12.5mg QD, start Lasix 20mg 1- 2 times per a week,and consider adding jardiance for diastolic dysfunction. Pending cost. Patient was also recommendedto start zetia 10mg QD due to statin intolerance. Patient presents today feeling poor. She has multiple complaints. She continues with excessive fluid build-up in bilateral lower extremties. She denies taking her furosemide, but does endorse taking her Spirolactone. Patient had opted not to take the Jardiance, nor the zetia. She has brought a print out from [facility] with concerns of potential drug interactions with her current medication list and desires to have her medications reduced or re-evaluated. She has expressed being quite upset that her appointments have been moved and is disappointed in not being scheduled with Dr. Liu which is understandable. BP is controlled. Most recent lipid panel 12/05/22 which is stable Most recent Hemoglobin A1C showing inadequate control at 7.4% 1% increase to the year prior. REVIEW OF SYSTEMS: See HPI for pertinent positives. All others negative other than those noted in the HPI. CONSTITUTIONAL: No change in weight, No weakness, No fatigue and No fevers, No sweats or chills. PULMONARY: No cough, sputum, or hemoptysis, No wheezing, No shortness or breath and No recent change in breathing. CARDIOVASCULAR: No chest pain, No dyspnea on exertion, No edema, No palpitations and No syncope. GASTROINTESTINAL: No abdominal pain, No change in bowel habits, No significant heartburn, No nausea, No vomiting, No diarrhea, No constipation, No blood in stools or black tarry stools. No dysphagia. HEMATOLOGIC: No abnormal bleeding and No bruising. NEUROLOGICAL: Normal balance, No headaches and No weakness. Review of patient's allergies indicates: Allergen Reactions [...] Current Outpatient Medications Medication Sig Dispense Refill NEBULIZER COMPRESSOR KIT Use as directed 1 Kit 0 VITAMIN D 1000 UNITS PO CAPS 1 dailly Aspirin 81 MG Oral Tablet Delayed Release Take 1 Tablet by mouth in the morning. oxygen GAS 3 LPM bled through CPAP 7 cwp during all hours of sleep. 1 Each 0 Respiratory Therapy Supplies (NEBULIZER AIR TUBE/PLUGS) [facility] Use as directed 1 Each 0 Blood [...] 1 Tablet by mouth in the morning. Furosemide 20 MG Oral Tablet (Lasix) Take one 1-2 days per week as needed for fluid retention 20 Tablet 5 FLUoxetine HCl 10 MG Oral Capsule (PROzac) [...] Tablets in the morning.) 90 Tablet 3 ADULT MASK WANG as directed 1 2 Mupirocin 2 % External Ointment (Bactroban) NEEDED Ezetimibe 10 MG Oral Tablet (Zetia) Take 1 Tablet by mouth in the morning. (Patient not taking: Reported on 04/04/2023) Verapamil HCl ER 180 MG Oral Tablet Extended Release (Isoptin SR) Take 1 Tablet by mouth in the morning. 90 Tablet 3 No current facility-administered medications for this visit. 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) 09/24/2017 COPD (chronic obstructive pulmonary disease) ([facility]) Dependence on nocturnal oxygen therapy 12/25/2015 Depressive disorder, not elsewhere classified Diabetic polyneuropathy ([facility]) 09/24/2017 Diastolic dysfunction 04/29/2017 Diverticulosis of [...] joint replacement status 03/28/[address] Doherty, [facility] Lung nodule 02/11/2020 Menopause 1945 started ERT at that time Need for prophylactic hormone replacement therapy (postmenopausal) age 43 Neuropathy 05/22/2020 No advance directive on file 01/23/2005 Yes, Patient instructed to provide copy of advance directive for provider to review and to be scanned into Electronic Medical Record Nocturnal hypoxia 12/25/2015 MASSIMO on CPAP 02/13/2005 on CPAP Osteoporosis osteopenia Other paraproteinemias 08/1999 [place] 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 Paroxysmal SVT (supraventricular tachycardia) 05/26/2018 Retina hole, left 04/01/2018 Retinal tear left eye Senile nuclear cataract 02/17/2014 Tim Sleep apnea, obstructive Special screening for osteoporosis 06/2002 3-4 % decline compared to 1999, repeat in 2005 Family History Problem Relation Age of Onset Eye Problems Mother cataracts/glaucoma/AMD Cancer Mother pancreatic at age 72 Cancer Father prostate at age 66 Eye Problems Father cataracts/glaucoma Diabetes Brother at age 60's Hypertension Sister Stroke Grandfather (Paternal) Thyroid Disorder None Heart Disorder None Other (AAA) Other Denies FH of AAA Social History Socioeconomic History Marital status: Number of children: 2 Occupational History 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 1 cat No mold but always suspect there is some Social Determinants of Health Food Insecurity: No Food Insecurity Worried About Running Out of Food in the Last Year: Never true Ran Out of Food in the Last Year: Never true OBJECTIVE/PHYSICAL EXAMINATION: BP 120/78 | Pulse 80 | Wt 103 kg (227 lb) | BMI 40.86 kg/m | BSA 2.13 m General: No acute distress. A+Ox3. HEENT: Normocephalic. Atraumatic. PERRL. EOMI. Conjunctiva and sclera clear. NECK: No carotid bruits. No JVD. Carotid upstrokes are brisk. Heart: RRR. S1 and S2 noted. + 1/6 systolic murmur. No rubs or gallops. PMI non displaced. Lungs: Clear to auscultation. No wheezes.No rhonchi. No rales. Abdomen: Normal bowel sounds. Soft. Nontender. No masses or organomegaly. No abdominal bruits. Extremities:+ 1 BLE edema. No clubbing or cyanosis. Pulses: radial=2/4, posterior tibial=2/4, dorsalis pedis = 2/4. NEURO: No focal deficits. PSYCH: Appropriate affect and insight. DATA Labs & Imaging Reviewed Below: Carotid duplex June 11, 2022 Impression: Right carotid artery duplex examination indicates evidence of less than 50% stenosis of the internal carotid artery. Left carotid artery duplex examination indicates evidence of less than 50% stenosis of the internalcarotid artery. Abnormal oscillating flow identified in the left subclavian artery could indicate a more proximal stenosis/occlusion. Echocardiogram 2020 The examination is limited quality but adequate for evaluation of the referral indication. The qualitative LV ejection fraction is >70% (hyperdynamic). The LV wall thickness is moderately increased (concentric). The left ventricular diastolic function is mildly abnormal (grade I). The aortic valve is mildly calcified. There is aortic valve sclerosis without stenosis. Compared to last availablestudy changes are noted as follows: Moderate concentric left ventricular hypertrophy now present. Cardiac cath result 11/28/20 Coronary system widely patent, including LAD distribution. Lipid Panel Results: Results for orders placed or performed in visit on 05/27/22 LIPID PANEL WITH DIRECT LDL IF TG IS HIGH Result Value Ref Range Triglycerides 158 <=174 mg/dL Cholesterol 250 (H) <200 mg/dL HDL Cholesterol 62 >49 mg/dL Non-HDL Cholesterol 188 (H) <=159 mg/dL LDL Cholesterol 156 (H) <=129 mg/dL ASSESSMENT/PLAN: 77 year old year old female 1. Paroxysmal SVT (supraventricular tachycardia) 2. AVNRT (AV carleen re-entry tachycardia) -EKG today personally reviewed. SR with 1st degree AV block -Denies chest pain, palpitations, pre-syncopal or syncopal episodes. -Continue Verapamil and Flecanide - EKG - ECHO, COMPLETE (2D), TRANS-THORACIC; Future - CBC; Future - COMPREHENSIVE METABOLIC PANEL; Future 3. Dyspnea on exertion -Multifactorial given patient's underlying lung disease, Grade I diastolic dysfunction and deconditioning complicated by her comorbidities. -Patient with mild volume overload today, Recommend that she continue her spironolactone daily. Also, in agreement for restarting Lasix use at least 1-2 times per a week as previously recommended by Dr. Liu -Obtain routine labs to assess for anemia and other possible etiologies associated with her shortness of breath - ECHO, COMPLETE (2D), TRANS-THORACIC; Future - CBC; Future - COMPREHENSIVE METABOLIC PANEL; Future 4. Leg swelling -Multifactorial. Exhibits mild volume overload in part to her degree of diastolic dysfunction, and likely contributing venous insufficency. -Discussed current diet/exercise/life-style modification. -Continue use of spirolactone as well as restart Furosemide on a limited basis. Continue Losartan for adequate BP control and heart protective properties. -Recommend use of Compression stockings, which patient states that she has, but does endorse difficultly wearing. -Prior history of LVH noted on echo in 2020. -Obtain echocardiogram to assess LVEF, overall structure and function as well as for pulmonary HTN. - ECHO, COMPLETE (2D), TRANS-THORACIC; Future - CBC; Future - COMPREHENSIVE METABOLIC PANEL; Future DISPOSITION: Follow up 3 months (with Dr. Liu) or if symptoms worsen/fail to improve. All questions were answered to the patients satisfaction. Patient advised to report to ED with any and all emergencies. The patient agrees to the above plan and will call with additional questions or concerns. GUIDO [facility], [address] [address] I spent a total of 38 minutes on the date of service in preparation, delivery, and documentation ofthe care provided to Marycruz Cano excluding any time spent in the performance of separately billed services. This chart was completed in part utilizing [employer] Speech Voice Recognition Software. Grammatical errors, random word insertions, pronoun errors, and incomplete sentences are an occasional consequence of this system due to software limitations, ambient noise, and hardware issues. Any formal questions or concerns about the content, text, or information contained within the body of this dictation should be directly addressed to the provider for clarification. documented in this encounter Procedure Notes * Lopez Ovalle DO - 04/04/2023 2:32 PM EDTAssociated Order(s): EKG REASON FOR STUDY: routine CONCLUSIONS: Sinus rhythm with 1st degree AV block Low voltage QRS, consider pulmonary disease, pericardial effusion, or normal variant Cannot rule out Anterior infarct , age undetermined Abnormal ECG When compared with ECG of 31-OCT-2021 13:09, No significant change was found Ventricular Rate: 83 Atrial Rate: 83 [place] Interval: 254 QRS Duration: 82 QT/QTc: 386/453 ms P-R-T [place]: 70 : 9 : 63 degrees documented in this encounter Nursing Notes * Chyna Espinal CMA - 04/04/2023 2:22 PM EDT Examination Room: 1 Name: Marycruz Cano Date of : (1945) Reason for Visit: 6m Interim Hospitalization(s): none Problems/Concerns: denied Chest Pain/SOB: denied chest pain, SOB getting worse. Flutter feeling in chest at time. My [facility] is a way you can talk to [...] comprehension of instructions. documented in this encounter Miscellaneous Notes * Result Encounter Note - GUIDO Newsome - 04/10/2023 8:05 AM EDT Reviewed during office visit. Continue with plan of care as documented. documented in this encounter Plan of Treatment Upcoming Encounters Date Type Specialty Care Team Description 04/15/2023 Office Visit Dermatology Rita Davis MD [address] [place] [address] 04/21/2023 Office Visit Internal Medicine Andrae Hays MD [address] [place] [address] 04/22/2023 Office Visit Ophthalmology Junior Mcnamara DO [address] [place] [address] 06/25/2023 Office Visit Cardiology Macario Liu MD [address] [place] [address] 11/07/2023 Office Visit Sleep Disorders Idania Garner CRNP [address] [place] [address] 11/27/2023 Office Visit Hematology Oncology Wilber Muniz MD [address] [place] [address] 12/08/2023 Telemedicine Pulmonary Ab Carlisle MD [address] [place] [address] Cart, Telemed Pulm Gw [address] [place] [address] Scheduled Procedures Name Priority Associated Diagnoses Date/Ti [...] FOR COPD 12/07/2023 12/06/2022 GFR 04/04/2024 04/04/2023, /01/2023, 08/23/2022, Additional history exists DTaP,Tdap,and Td Vaccines (3 - Td or Tdap) 12/09/2031 12/08/2021, 02/11/2008, 10/16/1992 Hepatitis B Completed 05/14/2002, 11/28, 10/15/2001, Additional history exists DXA Scan Discontinued 08/02/2015, 07/02, 07/29/2011, Additional history exists Pneumococcal Vaccine: 65+ Years Completed 09/24/2017, 04/28/2015, 03/23/2009 VITAMIN D LEVEL ONCE IN A LIFETIME-USE SMARTSET# [id number] Completed 05/27/2022, 01/18/2021, 02/10/2020, Additional history exists [...] this encounter Medical Devices Implanted Type Area Company Manager Device Identifier Shelf Expiration Date Model / Serial / Lot Lens 10.5 Sn60wf - [id number] Implanted:Qty: 1 on 04/27/[address] [facility] Left: Eye [employer] 02/27/2019 SN60WF.105 / [id number] / Lens 12.5 Sn60wf - [id number] Implanted:Qty: 1 on 05/11/[address] [facility] Right: Eye [employer] 02/27/2019 SN60WF.125 / [id number] / documented as of this encounter Procedures Procedure Name Priority Date/Time Associated Diagnosis Comments [place] ECG ROUTINE ECG W/LEAST 12 LDS W/I&R Routine 04/04/2023 2:32 PM EDT Paroxysmal SVT (supraventricular tachycardia) AVNRT (AV carleen re-entry tachycardia) documented in this encounter Results * ECHO, COMPLETE (2D), TRANS-THORACIC (04/10/2023 2:57 PM EDT) 04/10/2023 1:57 PM EDT Nila Toni [facility] CARDIOLOGY * COMPREHENSIVE METABOLIC PANEL (04/04/2023 4:09 PM EDT) BUN 20 6 - 20 mg/dL 04/05/2023 12:59 AM EDT [facility] Creatinine 0.7 0.5 - 1.0 mg/dL 04/05/2023 12:59 AM EDT [facility] Estimated Glomerular Filtration Rate 84 >=60 mL/min 04/05/2023 12:59 AM EDT [facility] Comment:eGFR is calculated b ased on the CKD-EPI 2020 equation Sodium 142 135 - 146 mmol/L 04/05/2023 12:59 AM EDT [facility] Potassium 4.2 3.5 - 5.1 mmol/L 04/05/2023 12:59 AM EDT [facility] Chloride 104 98 - 107 mmol/L 04/05/2023 12:59 AM EDT [facility] CO2 26 22 - 32 mmol/L 04/05/2023 12:59 AM EDT [facility] Anion Gap 12 7 - 15 mmol/L 04/05/2023 12:59 AM EDT [facility] Glucose 94 70 - 120 mg/dL 04/05/2023 12:59 AM EDT [facility] Albumin 4.6 3.8 - 5.0 g/dL 04/05/2023 12:59 AM EDT [facility] AST 17 10 - 35 U/L 04/05/2023 12:59 AM EDT [facility] Alkaline Phosphatase 127 35 - 130 U/L 04/05/2023 12:59 AM EDT [facility] Bilirubin, Total 0.4 <=1.2 mg/dL 04/05/2023 12:59 AM EDT [facility] Calcium 9.8 8.4 - 10.2 mg/dL 04/05/2023 12:59 AM EDT [facility] Protein 7.4 6.0 - 8.3 g/dL 04/05/2023 12:59 AM EDT LAB[facility]AT[facility] ALT 19 10 - 35 U/L 04/05/2023 12:59 AM EDT [facility] Blood Venous blood specimen / Unknown Venipuncture / Unknown 04/04/2023 4:09 PM EDT 04/04/2023 4:09 PM EDT Nila LORA LAB BLOOD ORDER [facility] [address] [place] [address] * (ABNORMAL) CBC (04/04/2023 4:09 PM EDT) WBC 13.62(H) 4.00 - 10.80 K/uL 04/04/2023 4:14 PM EDT [address] RBC 4.14 3.85 - 5.15 M/uL 04/04/2023 4:14 PM EDT [address] HGB 11.5(L) 12.0 - 15.3 g/dL 04/04/2023 4:14 PM EDT [address] HCT 37.6 36.0 - 45.2 % 04/04/2023 4:14 PM EDT [facility] 56 MCV 90.8 81.5 - 97.5 fL 04/04/2023 4:14 PM EDT [address] MCH 27.8 27.0 - 34.0 pg 04/04/2023 4:14 PM EDT [address] MCHC 30.6 32.0 - 36.0 g/dL 04/04/2023 4:14 PM EDT [facility] 56 RDW 13.9 11.5 - 15.5 % 04/04/2023 4:14 PM EDT [facility] 56 PLT 505(H) 140 - 400 K/uL 04/04/2023 4:14 PM EDT [facility] 56 MPV 8.7 6.6 - 11.1 fL 04/04/2023 4:14 PM EDT [facility] 56-02 Blood Venous blood specimen / Unknown Venipuncture / Unknown 04/04/2023 4:09 PM EDT 04/04/2023 4:09 PM EDT Nila LORA LAB BLOOD ORDER ROBERT Performing Organization Address [facility] [[email or web address]] Co de Phone Number [facility] [phone] [place] [address] * EKG (04/04/2023 2:32 PM EDT) 04/04/2023 2:32 PM EDT Procedure Note Lopez Ovalle, - 04/04/2023 2:32 PM EDT REASON FOR STUDY: routine CONCLUSIONS: Sinus rhythm with 1st degree AV block Low voltage QRS, consider pulmonary disease, pericardial effusion, ornormal variant Cannot rule out Anterior infarct , age undetermined Abnormal ECG When compared with ECG of 31-OCT-2021 13:09, No significant change was found Ventricular Rate: 83 Atrial Rate: 83 [place] Interval: 254 QRS Duration: 82 QT/QTc: 386/453 ms P-R-T [place]: 70 : 9 : 63 degrees Nila LORA EKG Performing Organization Address [facility] [[email or web address]] Co de Phone Number [facility] documented in this encounter Visit Diagnoses Diagnosis Paroxysmal SVT (supraventricular tachycardia)- Primary Paroxysmal supraventricular tachycardia AVNRT (AV carleen re-entry tachycardia) Other specified cardiac dysrhythmias Dyspnea on exertion Other dyspnea and respiratory abnormality Leg swelling Swelling of limb documented in this encounter Advance Directives Latest [...] and were consensually agreed upon. Care Teams Fuel Efficient Aircraft Designer Relationship Specialty Start Date End Date Andrae Hays MD [address] [place] [address], [place] [id number] PCP - General Internal Medicine 04/10/16 documented as of this encounter
--- OUTSIDE RECORDS SUMMARY | 2023-05-22 13:03 | External Medical Summary | Summary of Care ---
Author Name Unknown Organization [facility] Address [address] [place] [address] Phone [phone] Care Team Providers Care Diamond Die Maker Name Role Phone Andrae Hays MD Primary Care Provider + Encounter Details Date Type Department Care Team Description 01/21/2023 Telemedicine General Internal Medicine [facility] [address] [facility] [place] [id number] Ta Hamilton PA-C [address] [place] [address] Type 2 diabetes mellitus with hemoglobin A1c goal of less than 7.0% ([facility])*; Diabetic polyneuropathy associated with type 2 diabetes mellitus ([facility]); Moderate persistent asthma without complication; Bronchiectasis without complication ([facility]); Chronic obstructive pulmonary disease with hypoxia ([facility]); MASSIMO on CPAP; Obesity, morbid (more than 100 lbs over ideal weight or BMI > 40) ([facility]); Primary osteoarthritis of one knee, right; Status post left knee replacement; Gait instability Allergies Active Allergy Reactions Severity Noted Date [...] as of this encounter (statuses as of 01/21/2023) Medications Medication Sig Dispensed Refills Start Date End Date Status ADULT MASK DEVIIndications:Sleep apnea,Asthma, allergic as directed 1 2 6 Active NEBULIZER COMPRESSOR KITIndications:Asthma , allergic Use as directed 1 Kit 0 2 Active VITAMIN D 1000 UNITS PO CAPS 1 dailly 0 Active Aspirin 81 MG Oral Tablet Delayed Release Take 1 Tablet by mouth in the morning. 0 Active oxygen GAS 3 LPM bled through CPAP 7 cwp during all hours of sleep. 1 Each 0 6 Active Respiratory Therapy Supplies (NEBULIZER AIR TUBE/PLUGS) MISCIndications:Asthm a, allergic Use as directed 1 Each 0 7 Active Blood Glucose Monitoring Suppl (CONTOUR NEXT ONE) KITIndications:Type 2 diabetes mellitus with hemoglobin A1c goal of less than 7.0% (HCC) Use as directed. Dx E11.9 1 Kit 0 8 Active Elastic Bandages & Supports (MEDICAL COMPRESSION STOCKINGS) MISC Wear compression stockings during the day. Take off at night 2 Each 0 9 Active acetaminophen (TYLENOL) 500 MG Tablet Take 1 Tablet by mouth every 8 hours as needed. 100 Tab 0 9 Active Simethicone 125 MG CAPS Take 1 Tab by mouth as needed. 0 Active Melatonin ER 1 MG TBCR Take 1 Tab by mouth at bedtime. 0 Active Accu-Chek FastClix Lancets MISCIndications:Type 2 diabetes mellitus with hemoglobin A1c goal of less than 7.0% (HCC) Test twice daily as directed. Pt has this style lancing device at home already. DX E11.9 100 Each 5 0 Active Centrum Silver 50+Women Oral Tablet Take 1 Tab by mouth daily. 0 Active Fexofenadine HCl 180 MG Oral Tablet Take 1 Tablet by mouth in the morning. 0 Active Furosemide 20 MG Oral Tablet (Lasix) Take one 1-2 days per week as needed for fluid retention 20 Tablet 5 2 Active Mupirocin 2 % External Ointment (Bactroban) NEEDED 0 2 Active Spironolactone 25 MG Oral Tablet (Aldactone) TAKE 1 TABLET BY MOUTH DAILY 90 Tablet 3 2 Active Additional Information Patient taking differently: 12.5 mg Oral Daily(AM), Reported on 08/09/2022 FLUoxetine HCl 10 MG Oral Capsule (PROzac)Indications:M ajor depressive disorder with single episode, in partial remission ([facility]) Take by mouth 1 Capsule in the morning. 90 Capsule 3 2 Active Verapamil HCl ER 180 MG Oral Tablet Extended Release (Isoptin SR)Indications:SVT (supraventricular tachycardia) ([facility]),HTN, goal below 140/90 Take by mouth 1 Tablet in the morning. 90 Tablet 3 2 Active Albuterol Sulfate HFA 108 (90 Base) MCG/ACT Inhalation Aerosol Solution Inhale 2 Puffs by mouth every 4 hours as needed for Cough, Shortness of Breath or Wheezing. 36 g 1 3 Active oxygen IN GASIndications:Chroni c respiratory failure with hypoxia ([facility]) 1 LPM via nasal cannula with ambulation 1 Each 0 3 Active Breo Ellipta 200-25 MCG/ACT Inhalation Aerosol Powder Breath Activated (fluticasone furoate-vilanterol)In dications:COPD, group B, by GOLD 2017 classification ([facility]) USE 1 INHALATION BY MOUTH DAILY 180 Each 3 3 Active Ezetimibe 10 MG Oral Tablet (Zetia) Take 1 Tablet by mouth in the morning. 0 Active metFORMIN HCl 500 MG Oral Tablet (Glucophage)Indicatio ns:Type 2 diabetes mellitus with hemoglobin A1c goal of less than 7.0% ([facility]) TAKE 1 TABLET BY MOUTH DAILY WITH BREAKFAST 90 Tablet 2 3 Active Losartan Potassium 100 MG Oral Tablet (Cozaar)Indications:H TN, goal below 140/90 TAKE 1 TABLET BY MOUTH ONCE DAILY 90 Tablet 3 3 Active Hydrocortisone (Perianal) 2.5 % External Cream (Anusol-HC)Indication s:Hemorrhoids, unspecified hemorrhoid type Administer into the rectum 2 times a day. 28 g 3 3 Active Levalbuterol HCl 0.63 MG/3ML Inhalation Nebulization Solution (Xopenex) Inhale 3 mL via nebulizer every 6 hours as needed for Wheezing or Shortness of Breath. Dx J44.9 270 mL 3 3 Active Flecainide Acetate 50 MG Oral Tablet (Tambocor)Indications :PSVT (paroxysmal supraventricular tachycardia) (HCC),AVNRT (AV carleen re-entry tachycardia) (HCC) TAKE ONE TABLET BY MOUTH TWICE A DAY (MORNING AND BEFORE BEDTIME) 180 Tablet 3 3 Active Famotidine 20 MG Oral Tablet (Pepcid)Indications:G ERD (gastroesophageal reflux disease) TAKE 1 TABLET BY MOUTH TWICE DAILY 180 Tablet 3 3 Active Contour Next Test In Vitro Strip (Glucose Blood)Indications:Typ e 2 diabetes mellitus with hemoglobin A1c goal of less than 7.0% (HCC) Test twice daily as directed. Dx E11.9. 100 Strip 5 3 Active Contour Next Test In Vitro Strip (Glucose Blood)Indications:Typ e 2 diabetes mellitus with hemoglobin A1c goal of less than 7.0% (HCC) Test twice daily as directed. Dx E11.9. 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 Irritable bowel syndrome Chronic sinusitis MASSIMO on CPAP Overview: CPAP 7 cwp 3 LPM AHP documented as of this encounter (statuses as of 01/21/2023) Resolved Problems Problem Noted Date Resolved Date [...] as of this encounter (statuses as of 01/21/2023) Immunizations Name Administration Dates Next Due COVID-19 mRNA, LNP-s, No Pre serve, 2-Dose Series (Scyron) 02/23/2021,08/26/2020,08/05/2020 COVID-19, LNP-s, No Preserve , Jasbir-sucrose, Ages 12+ (Pfizer) 09/26/2021 Covid-19, Mrna, Lnp-s, Pf, B ivalent, 30 Mcg, IM, 12 yrs and above (Pfizer) 03/08/2022 H1N1 2009 Influenza, IM 07/19/2009 PPD 08/26/2013 Pneumococcal Conjugate Vacc, 13 Valent (Prevnar) 04/28/2015 Pneumococcal Conjugate Vacci ne, 7 Valent 06/30/1998 Pneumococcal Polysaccharide PPV23 (Pneumovax) 09/24/2017,03/23/2009 Seasonal Influenza Virus Vac cine, Unspecified Formulation 03/28/2021,03/07/2020,04/23/2019,04/01,03/27/2017,03/29/2016,03/11/2016 ,03/31/2014,04/20/2013,03/09/2012,03/01,05/01/2010,03/23/2009, 8,05/13/2006,05/08/2005,04/18/2004,06/1999,04/28/2000 Seasonal Influenza, Quadriva lent Hd (Fluzone Hd) 03/28/2021 Seasonal Influenza, Quadriva lent, No Preserve, 6 Mons & Above, IM 04/01/2018,03/27/2017 Seasonal Influenza, Quadriva lent, No Preserve, Adjuvanted, 65+ Yrs, IM 03/07/2022,03/07/2020 Seasonal Influenza, Quadriva lent, No Preserve, IM [...] as of this encounter Progress Notes * Ta Hamilton PA-C - 01/21/2023 9:55 AM EDT Patient location: HOME. I was in a hospital or clinic location. After connecting through televideo,patient was verified with two unique identifiers. Patient (or authorized legal videotape sales representative) was then informed that this was a Telemedicine visit and being conducted confidentially over secure lines. Methods to assure confidentiality were taken. Patient acknowledged consent and understanding of pr ivacy and security of the Telemedicine visit. The patient agreed to participate. Subjective: Marycruz Cano is a 77 year old female. No chief complaint on file. HPI: 77 y/o female with DM II, COPD with hypoxia, bronchiectasis, MASSIMO seen today with request for lift chair and rollator walker. Has severe DJD of right knee which she does not plan for replacement and also chronic pain in left knee. Has neuropathy with limits gait and makes her unstable. Also has COPD with hypoxia which leadsto BOSE and need to rest. Needs orders sent to [facility]. PMH: Patient Active Problem List Diagnosis Code MGUS (monoclonal gammopathy of unknown significance) D47.2 Osteoporosis M81.0 Irritable bowel syndrome K58.9 Chronic sinusitis J32.9 Primary localized osteoarthrosis, lower leg M17.10 Vitamin D deficiency E55.9 Type 2 diabetes mellitus with hemoglobin A1c goal of less than 7.0% ([facility]) E11.9 Knee joint replacement status Z96.659 Allergic rhinitis due to pollen J30.1 Diverticulosis of colon K57.30 GERD (gastroesophageal reflux disease) K21.9 MASSIMO on CPAP G47.33, Z99.89 Asthma, moderate persistent J45.40 S/P carotid endarterectomy Z98.890 Carotid stenosis, non-symptomatic I65.29 Dyslipidemia, goal LDL below 100 E78.5 Nocturnal hypoxia G47.34 Dependence on nocturnal oxygen therapy Z99.81 HTN, goal below 140/90 I10 Diastolic dysfunction I51.89 History of cataract Z86.69 History of epistaxis Z87.898 Diabetic polyneuropathy ([facility]) E11.42 DISH (diffuse idiopathic skeletal hyperostosis) M48.10 RLS (restless legs syndrome) G25.81 Major depressive disorder with single episode, in partial remission ([facility]) F32.4 Paroxysmal SVT (supraventricular tachycardia) ([facility]) I47.1 Statin intolerance Z78.9 Bronchiectasis without complication ([facility]) J47.9 History of tobacco abuse Z87.891 At risk for aspiration Z91.89 Dysphagia R13.10 Pulmonary nodules R91.8 COPD, group B, by GOLD 2017 classification ([facility]) J44.9 S/P ablation operation for arrhythmia Z98.890, Z86.79 Angiomyolipoma of right kidney D17.71 AVNRT (AV carleen re-entry tachycardia) ([facility]) I47.1 Obesity, morbid (more than 100 lbs over ideal weight or BMI > 40) ([facility]) E66.01 Lung nodule R91.1 S/P RF ablation operation for arrhythmia Z98.890, Z86.79 Chronic obstructive pulmonary disease with hypoxia ([facility]) J44.9, R09.02 Hidradenitis suppurativa L73.2 Current Outpatient Medications Medication Sig Dispense Refill Contour Next Test In Vitro Strip (Glucose Blood) Test twice daily as directed. Dx E11.9. 100 Strip 5 ADULT MASK WANG as directed 1 2 NEBULIZER COMPRESSOR KIT Use as directed 1 Kit 0 VITAMIN D 1000 UNITS PO CAPS 1 dailly Aspirin 81 MG Oral Tablet Delayed Release Take 1 Tablet by mouth in the morning. oxygen GAS 3 LPM bled through CPAP 7 cwp during all hours of sleep. 1 Each 0 Respiratory Therapy Supplies (NEBULIZER AIR TUBE/PLUGS) MIS Use as directed 1 Each 0 Blood Glucose Monitoring Suppl (CONTOUR NEXT ONE) KIT Use as directed. Dx E11.9 1 Kit 0 Elastic Bandages & Supports (MEDICAL COMPRESSION STOCKINGS) [facility] Wear compression stockingsduring the day. Take off at night 2 Each 0 acetaminophen (TYLENOL) 500 MG Tablet Take [...] needed for fluid retention 20 Tablet 5 Mupirocin 2 % External Ointment (Bactroban) NEEDED Spironolactone 25 MG Oral Tablet (Aldactone) TAKE 1 TABLET BY MOUTH DAILY (Patient taking differently: Take 0.5 Tablets by mouth in the morning.) 90 Tablet 3 FLUoxetine HCl 10 MG Oral Capsule (PROzac) Take by mouth 1 Capsule in the morning. 90 Capsule 3 Verapamil HCl ER 180 MG Oral Tablet Extended Release (Isoptin SR) Take by mouth 1 Tablet in themorning. 90 Tablet 3 Albuterol Sulfate HFA 108 (90 Base) MCG/ACT Inhalation Aerosol Solution Inhale 2 Puffs by mouthevery 4 hours as needed for Cough, Shortness [...] MOUTH DAILY WITH BREAKFAST 90 Tablet 2 Losartan Potassium 100 MG Oral Tablet (Cozaar) TAKE 1 TABLET BY MOUTH ONCE DAILY 90 Tablet 3 Hydrocortisone (Perianal) 2.5 % External Cream (Anusol-HC) Administer into the rectum 2 times aday. 28 g 3 Levalbuterol HCl 0.63 MG/3ML [...] BY MOUTH TWICE DAILY 180 Tablet 3 No current facility-administered medications for [...] when she uses it Sorbitol Sugar alcohol All other review of systems reviewed and negative other than mentioned in HPI. Objective: There were no vitals taken for this visit. Results for orders placed or performed in visit on 12/06/22 URINALYSIS, REFLEX TO CULTURE (CUP ONLY) Result Value Ref Range Urinalysis, Reflex to Culture Specimen Specimen collected and received URINALYSIS, REFLEX TO CULTURE Result Value Ref Range Color, Urine Light Yellow Colorless, Light Yellow, Yellow, Dark Yellow Clarity, Urine Clear Clear Glucose, Urine Negative Negative mg/dL Bilirubin, Urine Negative Negative Ketone, Urine Negative Negative mg/dL Specific [place], Urine 1.026 1.003 - 1.030 Blood, Urine Negative Negative pH, Urine 6.0 5.0 - 7.5 Units Protein, Urine Negative Negative mg/dL Urobilinogen, Urine Normal Normal mg/dL Nitrite, Urine Negative Negative Esterase, Urine Negative Negative RBC, Urine 0-2 0 - 2 /HPF WBC, Urine 0-2 0 - 2 /HPF Bacteria, Urine 0-25 0 - 25 /HPF Culture, Urine *Note: Due to a large number of results and/or encounters for the requested time period, some results have not been displayed. A complete set of results can be found in Results Review. Physical Exam Constitutional: General: She is not in acute distress. Appearance: Normal appearance. She is not ill-appearing or toxic-appearing. Pulmonary: Effort: No respiratory distress. Neurological: Mental Status: She is alert. ASSESSMENT: Type 2 diabetes mellitus with hemoglobin A1c goal of less than 7.0% ([facility]) (Primary) - Contour Next Test In Vitro Strip (Glucose Blood); Test twice daily as directed. Dx E11.9. Diabetic polyneuropathy associated with type 2 diabetes mellitus ([facility]) - DURABLE MEDICAL EQUIPMENT Moderate persistent asthma without complication Bronchiectasis without complication ([facility]) Chronic obstructive pulmonary disease with hypoxia ([facility]) - DURABLE MEDICAL EQUIPMENT Compliant with Breo and albuterol. Oxygen at night and exertion. Following with pulm MASSIMO on CPAP Obesity, morbid (more than 100 lbs over ideal weight or BMI > 40) ([facility]) Primary osteoarthritis of one knee, right - DURABLE MEDICAL EQUIPMENT Status post left knee replacement - DURABLE MEDICAL EQUIPMENT Gait instability - DURABLE MEDICAL EQUIPMENT Patient with chronic disease above which limits her mobility from a mechanical and physical stand point. She need walker with seat so she can stop to rest when mobile secondary to COPD. Decreased stand and pain with movement/standing secondary to DJD. Lift chair would be beneficial toimprove mobility. Ta Hamilton PA-C documented in this encounter Plan of Treatment Upcoming Encounters Date Type Specialty Care Team Description 02/20/2023 Office Visit Dermatology Rita Davis MD [address] [facility] [place] [address] 03/31/2023 Office Visit Cardiology Macario Liu MD [address] [place] [address] 04/22/2023 Office Visit Ophthalmology Junior Mcnamara DO [address] [place] [address] 06/16/2023 Office Visit Internal Medicine Andrae Hays MD [address] [place] [address] 11/07/2023 Office Visit Sleep Disorders Idania Garner CRNP [address] [place] [address] 11/27/2023 Office Visit Hematology Oncology Wilber Muniz MD [address] [facility] [place] [address] 12/08/2023 Telemedicine Pulmonary MaylinAb mueller MD [address] [place] [address] Cart, Telemed Pulm Gw [address] [place] [place] [address] Scheduled Procedures Name Priority Associated Diagnoses Date/Ti [...] 09/28/2022 09/28/2021, , 08/25/2020, Additional history exists Influenza Vaccine (FLU shot) (#1) 2023 03/07/2022, 03/28/2021, 03/28/2021, Additional history exists Albumin/Creatinine Ratio 05/16/2023 022, 10/29/2021, 09/24/2017, Additional history exists DIABETES-FOOT EXAM 05/16/2023 05/16/2022, 1 , 02/11/2020, Additional history exists HbA1c 06/06/2023 12/05/2022, 05/01, 01/17/2022, Additional history exists Depression Screening, Annual for Pts 12 and Over 11/20/2023 11/19/2022 B-12 12/06/2023 12/05/2022, 12/29, 10/18/2021, Additional history exists GFR 12/06/2023 12/05/2022, 08/01, 05/27/2022, Additional history exists O2 ASSESSMENT COMPLETED IN PAST YEAR FOR COPD 12/07/2023 12/06/2022 DTaP,Tdap,and Td Vaccines (3 - Td or Tdap) 12/09/2031 12/08/2021, 02/11/2008, 10/16/1992 Hepatitis B Completed 05/14/2002, 11/28, 10/15/2001, Additional history exists Hepatitis C Screening Completed 02/08/2013 DXA Scan Discontinued 08/02/2015, 07/02, 07/29/2011, Additional history exists Pneumococcal Vaccine: 65+ Years Completed 09/24/2017, 04/28/2015, 03/23/2009 COVID-19 Vaccine Completed 03/08/2022, , 02/23/2021, Additional history exists VITAMIN D LEVEL ONCE IN A LIFETIME-USE SMARTSET# [id number] Completed 05/27/2022, 01/18/2021, 02/10/2020, Additional history exists GARDASIL-HPV IMMUNIZATION SERIES Aged Out No longer eligible based on patient's age to complete this topic MENINGOCOCCAL (MENACTRA/MENVEO) Aged Out No longer eligible based on patient's age to complete this topic documented as of this encounter Medical Devices Implanted Type Area Stem Maker Device Identifier Shelf Expiration Date Model / Serial / Lot Lens 10.5 Sn60wf - [id number] Implanted:Qty: 1 on 04/27/2014 at OR [facility] Left: Eye [employer] 02/27/2019 SN60WF.105 / [id number] / Lens 12.5 Sn60wf - [id number] Implanted:Qty: 1 on 05/11/2014 at OR [facility] Right: Eye [employer] 02/27/2019 SN60WF.125 / [id number] / documented as of this encounter Visit Diagnoses Diagnosis Type 2 diabetes mellitus with hemoglobin A1c goal of less than 7.0% (HCC)- Primary Diabetic polyneuropathy associated with type 2 diabetes mellitus (HCC) Moderate persistent asthma without complication Unspecified asthma Bronchiectasis without complication (HCC) Bronchiectasis without acute exacerbation Chronic obstructive pulmonary disease with hypoxia (HCC) MASSIMO on CPAP Obstructive sleep apnea (adult) (pediatric) Obesity, morbid (more than 100 lbs over ideal weight or BMI > 40) (HCC) Morbid obesity Primary osteoarthritis of one knee, right Status post left knee replacement Gait instability Abnormality of gait documented in this encounter Advance Directives Latest [...] and were consensually agreed upon. Care Teams Diamond Die Maker Relationship Specialty Start Date End Date Andrae Hays MD [address] [facility] [place] [address] PCP - General Internal Medicine 04/10/16 documented as of this encounter
--- OUTSIDE RECORDS SUMMARY | 2023-05-22 13:03 | External Medical Summary ---
Author Name Unknown Address Unknown Organization K01:[facility] [place] [address] [facility] [address] Laboratory Report Ordering Provider Test Date Status SIDDHARTHA FLORES 04/04/2023 16:09:40 Final Observation Date Value Abnormality Reference (Units ) Status BUN 04/04/2023 16:09:40 20 6-20 (mg/dL) Final Creatinine 04/04/2023 16:09:40 0.7 0.5-1.0 (mg/dL) Final Glomerular filtration rate/1.73 sq M.predicted [Volume Rate/Area] in Serum, Plasma or Blood by Creatinine-based formula (CKD-EPI) 04/04/2023 16:09:40 84 >=60 (mL/min) Final eGFR is calculated based on the CKD-EPI 2020 equation SODIUM 04/04/2023 16:09:40 142 135-146 (m mol/L) Final Potassium 04/04/2023 16:09:40 4.2 3.5-5.1 (m mol/L) Final Cl 04/04/2023 16:09:40 104 98-107 (mm ol/L) Final CO2 04/04/2023 16:09:40 26 22-32 (mmo l/L) Final Anion gap 04/04/2023 16:09:40 12 7-15 (mmol /L) Final Glucose 04/04/2023 16:09:40 94 70-120 (mg /dL) Final Albumin 04/04/2023 16:09:40 4.6 3.8-5.0 (g /dL) Final AST (Aspartate aminotransferase) 04/04/2023 16:09:40 17 10-35 (U/L) Final Alk Phos 04/04/2023 16:09:40 127 35-130 (U/ L) Final Bilirubin, Total 04/04/2023 16:09:40 0.4 <=1 .2 (mg/dL) Final Calcium 04/04/2023 16:09:40 9.8 8.4-10.2 ( mg/dL) Final Protein 04/04/2023 16:09:40 7.4 6.0-8.3 (g /dL) Final ALT (Alanine aminotransferase) 04/04/2023 16:09:40 19 10-35 (U/L) Final Performing Location [facility] [place] [facility] [address]. [facility] [address]
--- OUTSIDE RECORDS SUMMARY | 2023-05-22 13:03 | External Medical Summary | Summary of Care ---
Author Name Unknown Organization [facility] Address [address] [place] [address] Phone [phone] Care Team Providers Care Senior Agricultural Assistant Name Role Phone Andrae Hays MD Primary Care Provider + Encounter Details Date Type Department Care Team Description 04/04/2023 Immunization Ancillary [facility] [address] [place] [address] Sp, [facility] [address] [facility] [address] Arrived Allergies Active Allergy Reactions Severity Noted Date [...] as of this encounter (statuses as of 04/04/2023) Medications Medication Sig Dispensed Refills Start Date [...] the morning. 90 Capsule 3 04/16/2022 Active Verapamil HCl ER 180 MG Oral Tablet Extended Release (Isoptin SR)Indications:SVT (supraventricular tachycardia),HTN, goal below 140/90 Take by mouth 1 Tablet in the morning. 90 Tablet 3 04/22/2022 Active Albuterol Sulfate HFA 108 (90 Base) [...] ications:COPD, group B, by GOLD 2017 classification ([facility]) USE 1 INHALATION BY MOUTH DAILY 180 Each 3 07/25/2022 Active Ezetimibe 10 MG Oral Tablet (Zetia) Take 1 Tablet by mouth in the morning. 0 Active metFORMIN HCl 500 MG Oral Tablet (Glucophage)Indication s:Type 2 diabetes mellitus with hemoglobin A1c goal of less than 7.0% ([facility]) TAKE 1 TABLET BY MOUTH DAILY WITH [...] hemoglobin A1c goal of less than 7.0% ([facility]) Test twice daily as directed. Dx E11.9. 100 Strip 5 01/21/2023 Active Spironolactone 25 MG Oral Tablet (Aldactone)Indications :HTN, goal below 140/90 TAKE 1 TABLET BY MOUTH DAILY 90 Tablet 3 03/17/2023 Active Additional Information Patient taking differently: 12.5 mg Daily(AM), Reported on 04/04/2023 documented as of this encounter (statuses as of 04/04/2023) Active Problems Problem Noted Date Hidradenitis suppurativa [...] replacement status 03/28/2010 Overview: left Dr Doherty, [facility] Type 2 diabetes mellitus with hemoglobin A1c goal of less than 7.0% 06/07/2009 Overview: ICD-10 update of inactive term Vitamin D deficiency 05/25/2009 Primary localized osteoarthrosis, lower leg 03/23/2009 Osteoporosis 07/14/2002 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 Overview: [place] 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 Irritable bowel syndrome Chronic sinusitis MASSIMO on CPAP Overview: CPAP 7 cwp 3 LPM AHP documented as of this encounter (statuses as of 04/04/2023) Resolved Problems Problem Noted Date Resolved Date [...] as of this encounter (statuses as of 04/04/2023) Immunizations Name Administration Dates Next Due COVID-19 mRNA, LNP-s, No Pre serve, 2-Dose Series ([employer]) 02/23/2021,08/26/2020,08/05/2020 COVID-19, LNP-s, No Preserve , Jasbir-sucrose, Ages 12+ (Pfizer) 09/26/2021 COVID-19, MRNA-LNP, PF, 30 M CG/0.3 mL, 12 yrs and above, IM (Pfizer) 03/22/2023 Covid-19, Mrna, Lnp-s, Pf, B ivalent, [...] Encounters Date Type Specialty Care Team Description 04/10/2023 Cardiac Studies Cardiac Studies 04/15/2023 Office Visit Dermatology Rita Davis MD [address] [facility] [place] [address] 04/21/2023 Office Visit Internal Medicine Andrae Hays MD [address] [place] [address] 04/22/2023 Office Visit Ophthalmology Junior Mcnamara DO [address] [place] [address] 06/25/2023 Office Visit Cardiology Macario Liu MD [address] [place] [address] 11/07/2023 Office Visit Sleep Disorders Idania Garner CRNP [address] [place] [address] 11/27/2023 Office Visit Hematology Oncology Wilber Muniz MD [address] [place] [facility] [place] [address] 12/08/2023 Telemedicine Pulmonary Ab Carlisle MD [address] [place] [facility] [place] [address] Cart, [facility] [address] Scheduled Procedures Name Priority Associated Diagnoses Date/Ti [...] D LEVEL ONCE IN A LIFETIME-USE SMARTSET# [id number] Completed 05/27/2022, 01/18/2021, 02/10/2020, Additional history exists [...] this encounter Medical Devices Implanted Type Area Depot Agent Device Identifier Shelf Expiration Date Model / Serial / Lot Lens 10.5 Sn60wf - [id number] Implanted:Qty: 1 on 04/27/2014 at OR [facility] Left: Eye [employer] 02/27/2019 SN60WF.105 / [id number] / Lens 12.5 Sn60wf - [id number] Implanted:Qty: 1 on 05/11/2014 at OR [facility] Right: Eye [employer] 02/27/2019 SN60WF.125 / [id number] / documented as of this encounter Advance [...] and were consensually agreed upon. Care Teams Senior Agricultural Assistant Relationship Specialty Start Date End Date Andrae Hays MD [address] [place] [id number] PCP - General Internal Medicine 04/10/16 documented as of this encounter
--- OUTSIDE RECORDS SUMMARY | 2023-05-22 13:03 | External Medical Summary | Summary of Care ---
Author Name Unknown Organization [facility] Address [address] [place] [address] Phone [phone] Care Team Providers Care Clinical Study Manager Name Role Phone Andrae Hays MD Primary Care Provider + Reason for Visit * Reason Comments eRx-Medication Refill Encounter Details Date Type Department Care Team Description 03/16/2023 Refill Cardiology, [facility] [address] [facility] [address] RylieNeela obando CRNP [address] [facility] [address] HTN, goal below 140/90* Allergies Active Allergy Reactions Severity Noted Date [...] as of this encounter (statuses as of 03/17/2023) Medications Medication Sig Dispensed Refills Start Date End Date Status ADULT MASK DEVIIndications:Slee p apnea,Asthma, allergic as directed 1 2 6 Active NEBULIZER COMPRESSOR KITIndications:Asthm a, allergic Use [...] External Ointment (Bactroban) NEEDED 0 2 Active FLUoxetine HCl 10 MG Oral Capsule (PROzac)Indications: Major depressive disorder with single episode, in partial remission (HCC) Take by mouth 1 Capsule in the morning. 90 Capsule 3 2 Active Verapamil HCl ER 180 MG Oral Tablet Extended Release (Isoptin SR)Indications:SVT (supraventricular tachycardia) ([facility]),HTN, goal below 140/90 Take by mouth 1 Tablet in the morning. 90 Tablet 3 2 Active Albuterol Sulfate HFA 108 (90 Base) MCG/ACT Inhalation Aerosol Solution Inhale 2 Puffs by mouth every 4 hours as needed for Cough, Shortness of Breath or Wheezing. 36 g 1 3 Active oxygen IN GASIndications:Chron ic respiratory failure with hypoxia ([facility]) 1 LPM via nasal cannula with ambulation 1 Each 0 3 Active Breo Ellipta 200-25 MCG/ACT Inhalation Aerosol Powder Breath Activated (fluticasone furoate-vilanterol)I ndications:COPD, group B, by GOLD 2017 classification ([facility]) USE 1 INHALATION BY MOUTH DAILY 180 Each 3 3 Active Ezetimibe 10 MG Oral Tablet (Zetia) Take 1 Tablet by mouth in the morning. 0 Active metFORMIN HCl 500 MG Oral Tablet (Glucophage)Indicati ons:Type 2 diabetes mellitus with hemoglobin A1c goal of less than 7.0% ([facility]) TAKE 1 TABLET BY MOUTH DAILY [...] MG Oral Tablet (Tambocor)Indication s:PSVT (paroxysmal supraventricular tachycardia) ([facility]),AVNRT (AV carleen re-entry tachycardia) ([facility]) TAKE ONE TABLET BY MOUTH TWICE A DAY (MORNING AND BEFORE BEDTIME) 180 Tablet 3 3 Active Famotidine 20 MG Oral Tablet (Pepcid)Indications: GERD (gastroesophageal reflux disease) TAKE 1 TABLET BY MOUTH TWICE DAILY 180 Tablet 3 3 Active Contour Next Test In Vitro Strip (Glucose Blood)Indications:Ty pe 2 diabetes mellitus with hemoglobin A1c goal of less than 7.0% ([facility]) Test twice daily as directed. Dx E11.9. 100 Strip 5 3 Active Spironolactone 25 MG Oral Tablet (Aldactone)Indicatio ns:HTN, goal below 140/90 TAKE 1 TABLET BY MOUTH DAILY 90 Tablet 3 3 Active Spironolactone 25 MG Oral Tablet (Aldactone) TAKE 1 TABLET BY MOUTH DAILY 90 Tablet 3 2 023 Discontinued documented as of this encounter (statuses as of 03/17/2023) Active Problems Problem Noted Date Hidradenitis suppurativa [...] replacement status 03/28/2010 Overview: left Dr Doherty, [facility] Type 2 diabetes mellitus with hemoglobin A1c goal of less than 7.0% 06/07/2009 Overview: ICD-10 update of inactive term Vitamin D deficiency 05/25/2009 Primary localized osteoarthrosis, lower leg 03/23/2009 Osteoporosis 07/14/2002 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 Overview: [place] 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 Irritable bowel syndrome Chronic sinusitis MASSIMO on CPAP Overview: CPAP 7 cwp 3 LPM AHP documented as of this encounter (statuses as of 03/17/2023) Resolved Problems Problem Noted Date Resolved Date [...] as of this encounter (statuses as of 03/17/2023) Immunizations Name Administration Dates Next Due COVID-19 mRNA, LNP-s, No Pre serve, 2-Dose Series ([employer]) 02/23/2021,08/26/2020,08/05/2020 COVID-19, LNP-s, No Preserve , Jasbir-sucrose, Ages 12+ (Pfizer) 09/26/2021 Covid-19, Mrna, Lnp-s, Pf, B ivalent, 30 Mcg, IM, 12 yrs and above ([employer]) 03/08/2022 H1N1 2009 Influenza, IM 07/19/2009 PPD 08/26/2013 Pneumococcal Conjugate Vacc, 13 Valent (Prevnar) 04/28/2015 Pneumococcal Conjugate Vacci ne, 7 Valent 06/30/1998 Pneumococcal Polysaccharide PPV23 (Pneumovax) 09/24/2017,03/23/2009 Season Influenza, Quad, PF, Adjuvanted, 65+ Yrs, IM (FLUAD) 03/07/2022,03/07/2020 Seasonal Influenza Virus Vac cine, Unspecified Formulation 03/28/2021,03/07/2020,04/23/2019,04/01,03/27/2017,03/29/2016,03/11/2016 ,03/31/2014,04/20/2013,03/09/2012,03/01,05/01/2010,03/23/2009, 8,05/13/2006,05/08/2005,04/18/2004,06/1999,04/28/2000 Seasonal Influenza, PF, 6 mo ns & Above, IM , (Flulaval) 04/01/2018,03/27/2017 Seasonal Influenza, Quadriva lent Hd (Fluzone Hd) [...] encounter Miscellaneous Notes * Telephone Encounter - GUIDO Tian - 03/17/2023 12:06 PM EDT Signed Prescriptions: Disp Refills Spironolactone 25 MG Oral Tablet ([place]act[place]*90 Tab*3 Sig: TAKE 1 TABLET BY MOUTH DAILY Authorizing Provider: NEELA LAL * Telephone Encounter - JAVED Carranza - 03/17/2023 10:03 AM EDTPending Prescriptions: Disp Refills Spironolactone 25 MG Oral Tablet (Aldacton*90 Tab*3 Sig: TAKE 1 TABLET BY MOUTH DAILY * Telephone Encounter - JAVED Carranza - 03/17/2023 10:03 AM EDT Did you pend patient's preferred pharmacy and medication before forwarding?yes Pharmacy: [facility] Pending Prescriptions: Disp Refills Spironolactone 25 MG Oral Tablet (Aldacto*90 Tab*3 Sig: TAKE 1 TABLET BY MOUTH DAILY Last Visit: 08/09/2022 (in office), 07/18/2021 (telemedicine) Next Visit: 03/31/2023 If no future appointments scheduled, and last appointment is greater than a year ago, please schedule patient for a follow-up appointment Last date the medication was ordered: 01-14-2022 Is this request for a controlled substance?No Urine Drug Screen:No results found. However, due to the size of the patient record, not all encounters were searched. Please check Results Review for a complete set of results. Patient Phone Numbers Labs: Lab Results Component Value Date/Time CREAT 0.8 12/05/2022 08:14 AM CREAT 0.7 06/19/2020 07:30 AM POTASSIUM 4.3 12/05/2022 08:14 AM POTASSIUM 4.6 06/19/2020 07:30 AM POTASSIUM 3.9 06/18/1996 09:10 AM TSH 0.68 12/05/2022 08:14 AM TSH 0.50 06/17/2019 11:05 AM TSH 0.87 04/22/1996 10:10 AM LDLCALC 106 12/05/2022 08:14 AM LDLCALC 126 02/10/2020 11:54 AM LDLDIRECT 130 (H) 10/18/2021 11:15 AM LDLDIRECT NOT APPLICABLE 02/10/2020 11:54 AM ALT 20 12/05/2022 08:14 AM ALT 22 05/22/2020 10:25 AM HGBA1C 7.4 (H) 12/05/2022 08:14 AM HGBA1C 6.3 (H) 05/22/2020 10:25 AM documented in this encounter Plan of Treatment Upcoming Encounters Date Type Specialty Care Team Description 03/31/2023 Office Visit Cardiology Macario Liu MD [address] [place] [address] 04/15/2023 Office Visit Dermatology Rita Davis MD [address] [place] [address] 04/22/2023 Office Visit Ophthalmology Junior Mcnamara DO [address] [facility] [place] [address] 06/16/2023 Office Visit Internal Medicine Andrae Hays MD [address] [place] [address] 11/07/2023 Office Visit Sleep Disorders Idania Garner CRNP [address] [place] [address] 11/27/2023 Office Visit Hematology Oncology Wilber Muniz MD [address] [place] [address] 12/08/2023 Telemedicine Pulmonary Ab Carlisle MD [address] [place] [address] Cart, Telemed Pulm Gw [address] [place] [address] Scheduled Procedures Name Priority Associated Diagnoses Date/Ti [...] D LEVEL ONCE IN A LIFETIME-USE SMARTSET# [id number] Completed 05/27/2022, 01/18/2021, 02/10/2020, Additional history exists GARDASIL-HPV IMMUNIZATION SERIES Aged Out No longer eligible based on patient's age to complete this topic MENINGOCOCCAL (MENACTRA/MENVEO) Aged Out No longer eligible based on patient's age to complete this topic documented as of this encounter Medical Devices Implanted Type Area Gate Keeper Device Identifier Shelf Expiration Date Model / Serial / Lot Lens 10.5 Sn60wf - [id number] Implanted:Qty: 1 on 04/27/2014 at OR [facility] Left: Eye [employer] 02/27/2019 SN60WF.105 / [id number] / Lens 12.5 Sn60wf - [id number] Implanted:Qty: 1 on 05/11/2014 at OR [facility] Right: Eye [employer] 02/27/2019 SN60WF.125 / [id number] / documented as of this encounter Visit Diagnoses Diagnosis HTN, goal below 140/90- Primary Unspecified essential hypertension documented in this encounter [...] and were consensually agreed upon. Care Teams Clinical Study Manager Relationship Specialty Start Date End Date Andrae Hays MD [address] [place] [address], [place] [address] PCP - General Internal Medicine 04/10/16 documented as of this encounter
--- OUTSIDE RECORDS SUMMARY | 2023-05-22 13:03 | External Medical Summary | Summary of Care ---
Author Name Unknown Organization [facility] Address [address] [place] [address] Phone [phone] Care Team Providers Care Dock Supervisor Name Role Phone Andrae Hays MD Primary Care Provider + Reason for Visit * Reason Onset Date Comments Forms Request 01/21/2023 Encounter Details Date Type Department Care Team Description 01/21/2023 Telephone General Internal Medicine [facility] 200 [facility] [place], [place] [id number] Ta Hamilton PA-C 200 [place] [address] Forms Request Allergies Active Allergy Reactions Severity Noted Date [...] Dx E11.9 1 Kit 0 04/03/2018 Active Elastic Bandages & Supports (MEDICAL COMPRESSION STOCKINGS) MISC Wear compression stockings during the day. Take off at night 2 Each 0 11/16/2018 Active acetaminophen (TYLENOL) 500 MG Tablet Take [...] External Ointment (Bactroban) NEEDED 0 11/30/2021 Active Spironolactone 25 MG Oral Tablet (Aldactone) TAKE 1 TABLET BY MOUTH DAILY 90 Tablet 3 01/14/2022 Active Additional Information Patient taking differently: 12.5 mg Oral Daily(AM), Reported on 08/09/2022 FLUoxetine HCl 10 MG Oral Capsule (PROzac)Indications:Ma terrance depressive disorder with single episode, in partial remission (HCC) Take by mouth 1 Capsule in the morning. 90 Capsule 3 04/16/2022 Active Verapamil HCl ER 180 MG Oral Tablet Extended Release (Isoptin SR)Indications:SVT (supraventricular tachycardia) ([facility]),HTN, goal below 140/90 Take by mouth 1 Tablet in the morning. 90 Tablet 3 04/22/2022 Active Albuterol Sulfate HFA 108 (90 Base) MCG/ACT Inhalation Aerosol Solution Inhale 2 Puffs by mouth every 4 hours as needed for Cough, Shortness of Breath or Wheezing. 36 g 1 07/18/2022 Active oxygen IN GASIndications:Chronic respiratory failure with hypoxia ([facility]) 1 LPM via nasal cannula with ambulation 1 Each 0 07/23/2022 Active Breo Ellipta 200-25 MCG/ACT Inhalation Aerosol Powder Breath Activated (fluticasone furoate-vilanterol)Ind ications:COPD, group B, by GOLD 2017 classification ([facility]) USE 1 INHALATION BY MOUTH DAILY 180 Each 3 07/25/2022 Active Ezetimibe 10 MG Oral Tablet (Zetia) Take 1 Tablet by mouth in the morning. 0 Active metFORMIN HCl 500 MG Oral Tablet (Glucophage)Indication s:Type 2 diabetes mellitus with hemoglobin A1c goal of less than 7.0% ([facility]) TAKE 1 TABLET BY MOUTH DAILY [...] MG Oral Tablet (Tambocor)Indications: PSVT (paroxysmal supraventricular tachycardia) ([facility]),AVNRT (AV carleen re-entry tachycardia) ([facility]) TAKE ONE TABLET BY MOUTH TWICE A DAY (MORNING AND BEFORE BEDTIME) 180 Tablet 3 01/01/2023 Active Famotidine 20 MG Oral Tablet (Pepcid)Indications:GE RD (gastroesophageal reflux disease) TAKE 1 TABLET BY MOUTH TWICE DAILY 180 Tablet 3 01/10/2023 Active Contour Next Test In Vitro Strip (Glucose Blood)Indications:Type 2 diabetes mellitus with hemoglobin A1c goal of less than 7.0% ([facility]) Test twice daily as directed. Dx [...] gammopathy of unknown s ignificance) 08/29/1999 Overview: [place] IgG monoclonol spike monoclonal gammopathy of undetermined [...] exacerbation 01/23/2015 6 Senile nuclear cataract 02/17/2014 06/07/20 19 HTN, goal below 140/80 02/17/2012 5 [...] mRNA, LNP-s, No Pre serve, 2-Dose Series ([employer]) 02/23/2021,08/26/2020,08/05/2020 COVID-19, LNP-s, No Preserve , Jasbir-sucrose, Ages 12+ ([employer]) 09/26/2021 Covid-19, Mrna, Lnp-s, Pf, B ivalent, 30 Mcg, IM, 12 yrs and above ([employer]) 03/08/2022 H1N1 2009 Influenza, IM 07/19/2009 PPD [...] encounter Miscellaneous Notes * Telephone Encounter - Rashida Low LPN - 01/21/2023 3:59 PM EDT Provider to address: n/a Reason for Call: Forms Request Contact: Telephone Call Contact Type: Other: DME Outcome: Paper work for DME faxed [employer]. Fax confirmation received. Total Time including non face to face (minutes): 15 Rashida Low LPN documented in this encounter Plan of Treatment Upcoming Encounters Date Type Specialty Care Team Description 02/20/2023 Office Visit Dermatology Rita Davis MD 200 [place] [address] 03/31/2023 Office Visit Cardiology Macario Liu MD [address] [place] [address] 04/22/2023 Office Visit Ophthalmology Junior Mcnamara DO [address] [place] [address] 06/16/2023 Office Visit Internal Medicine nAdrae Hays MD [address] [place] [address] 11/07/2023 Office Visit Sleep Disorders Idania Garner CRNP [address] [place] [address] 11/27/2023 Office Visit Hematology Oncology Wilber Muniz MD [address] [place] [address] 12/08/2023 Telemedicine Pulmonary Ab Carlisle MD [address] [place] [address] Cart, Telemed Pulm Gw [address] [place] [address] Scheduled Procedures Name Priority Associated Diagnoses Date/Ti [...] D LEVEL ONCE IN A LIFETIME-USE SMARTSET# [id number] Completed 05/27/2022, 01/18/2021, 02/10/2020, Additional history exists GARDASIL-HPV IMMUNIZATION SERIES Aged Out No longer eligible based on patient's age to complete this topic MENINGOCOCCAL (MENACTRA/MENVEO) Aged Out No longer eligible based on patient's age to complete this topic documented as of this encounter Medical Devices Implanted Type Area Php Engineer Device Identifier Shelf Expiration Date Model / Serial / Lot Lens 10.5 Sn60wf - [id number] Implanted:Qty: 1 on 04/27/2014 at OR [facility] Left: Eye [employer] 02/27/2019 SN60WF.105 / [id number] / Lens 12.5 Sn60wf - [id number] Implanted:Qty: 1 on 05/11/2014 at OR [facility] Right: Eye [employer] 02/27/2019 SN60WF.125 / [id number] / documented as of this encounter Advance [...] and were consensually agreed upon. Care Teams Dock Supervisor Relationship Specialty Start Date End Date Andrae Hays MD [address] [place] [address], [place] [address] PCP - General Internal Medicine 04/10/16 documented as of this encounter
--- OUTSIDE RECORDS SUMMARY | 2023-05-22 13:03 | External Medical Summary | Summary of Care ---
Author Name Unknown Organization [facility] Address [address] [place] [address] Phone [phone] Care Team Providers Care Ticket Agent Name Role Phone Andrae Hays MD Primary Care Provider + Encounter Details Date Type Department Care Team Description 01/21/2023 Telemedicine General Internal Medicine [facility] 200 [facility] [place] [id number] Ta Hamilton PA-C 200 [place] [address] Type 2 diabetes mellitus with hemoglobin A1c goal of less than 7.0% ([facility])*; Diabetic polyneuropathy associated with type 2 diabetes mellitus ([facility]); Moderate persistent asthma without complication; Bronchiectasis without complication ([facility]); Chronic obstructive pulmonary disease with hypoxia ([facility]); MASSIMO on CPAP; Obesity, morbid (more than 100 lbs over ideal weight or BMI > 40) ([facility]); Primary osteoarthritis of one knee, right; Status [...] disorder with single episode, in partial remission ([facility]) Take by mouth 1 Capsule in the morning. 90 Capsule 3 2 Active Verapamil HCl ER 180 MG Oral Tablet Extended Release (Isoptin SR)Indications:SVT (supraventricular tachycardia) ([facility]),HTN, goal below 140/90 Take by mouth 1 Tablet in the morning. 90 Tablet 3 2 Active Albuterol Sulfate HFA 108 (90 Base) MCG/ACT Inhalation Aerosol Solution Inhale 2 Puffs by mouth every 4 hours as needed for Cough, Shortness of Breath or Wheezing. 36 g 1 3 Active oxygen IN GASIndications:Chroni c respiratory failure with hypoxia ([facility]) 1 LPM via nasal cannula with ambulation 1 Each 0 3 Active Breo Ellipta 200-25 MCG/ACT Inhalation Aerosol Powder Breath Activated (fluticasone furoate-vilanterol)In dications:COPD, group B, by GOLD 2017 classification ([facility]) USE 1 INHALATION BY MOUTH DAILY 180 Each 3 3 Active Ezetimibe 10 MG Oral Tablet (Zetia) Take 1 Tablet by mouth in the morning. 0 Active metFORMIN HCl 500 MG Oral Tablet (Glucophage)Indicatio ns:Type 2 diabetes mellitus with hemoglobin A1c goal of less than 7.0% ([facility]) TAKE 1 TABLET BY MOUTH DAILY [...] replacement status 03/28/2010 Overview: left Dr Doherty, [facility] Type 2 diabetes mellitus with hemoglobin A1c goal of less than 7.0% 06/07/2009 Overview: ICD-10 update of inactive term Vitamin D deficiency 05/25/2009 Primary localized osteoarthrosis, lower leg 03/23/2009 Osteoporosis 07/14/2002 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 Overview: [place] IgG monoclonol spike monoclonal gammopathy of undetermined [...] mRNA, LNP-s, No Pre serve, 2-Dose Series ([employer] 02/23/2021,08/26/2020,08/05/2020 COVID-19, LNP-s, No Preserve , Jasbir-sucrose, [...] two unique identifiers. Patient (or authorized legal inside outside sales representative) was then informed that this [...] of less than 7.0% ([facility]) E11.9 Knee joint replacement status Z96.659 [...] Z86.69 History of epistaxis Z87.898 Diabetic polyneuropathy ([facility]) E11.42 DISH (diffuse idiopathic skeletal hyperostosis) M48.10 RLS (restless legs syndrome) G25.81 Major depressive disorder with single episode, in partial remission ([facility]) F32.4 Paroxysmal SVT (supraventricular tachycardia) ([facility]) I47.1 Statin intolerance Z78.9 Bronchiectasis without complication ([facility]) J47.9 History of tobacco abuse Z87.891 At risk for aspiration Z91.89 Dysphagia R13.10 Pulmonary nodules R91.8 COPD, group B, by GOLD 2017 classification ([facility]) J44.9 S/P ablation operation for arrhythmia Z98.890, Z86.79 Angiomyolipoma of right kidney D17.71 AVNRT (AV carleen re-entry tachycardia) ([facility]) I47.1 Obesity, morbid (more than 100 lbs over ideal weight or BMI > 40) ([facility]) E66.01 Lung nodule R91.1 S/P RF ablation operation for arrhythmia Z98.890, Z86.79 Chronic obstructive pulmonary disease with hypoxia ([facility]) J44.9, R09.02 Hidradenitis suppurativa L73.2 Current Outpatient [...] Elastic Bandages & Supports (MEDICAL COMPRESSION STOCKINGS) [facility] Wear compression stockingsduring the day. Take off [...] Negative Ketone, Urine Negative Negative mg/dL Specific [place], Urine 1.026 1.003 - 1.030 Blood, Urine [...] of less than 7.0% ([facility]) (Primary) - Contour Next Test In Vitro Strip (Glucose Blood); Test twice daily as directed. Dx E11.9. Diabetic polyneuropathy associated with type 2 diabetes mellitus ([facility]) - DURABLE MEDICAL EQUIPMENT Moderate persistent asthma without complication Bronchiectasis without complication ([facility]) Chronic obstructive pulmonary disease with hypoxia ([facility]) - DURABLE MEDICAL EQUIPMENT Compliant with Breo and albuterol. Oxygen at night and exertion. Following with pulm MASSIMO on CPAP Obesity, morbid (more than 100 lbs over ideal weight or BMI > 40) ([facility]) Primary osteoarthritis of one knee, right - [...] Office Visit Dermatology Rita Davis MD 200 [place] [address] 03/31/2023 Office Visit Cardiology Macario Liu MD [address] [place] [address] 04/22/2023 Office Visit Ophthalmology Junior Mcnamara DO [address] [place] [address] 06/16/2023 Office Visit Internal Medicine Andrae Hays MD 200 [place] [address] 11/07/2023 Office Visit Sleep Disorders Idania Garner CRNP [address] [place] [address] 11/27/2023 Office Visit Hematology Oncology Wilber Muniz MD 200 [place] [address] 12/08/2023 Telemedicine Pulmonary MaylinAb mueller MD [address] [place] [address] Cart, Telemed Pulm Gw [address] [place] [address] Scheduled Procedures Name Priority Associated Diagnoses Date/Ti [...] D LEVEL ONCE IN A LIFETIME-USE SMARTSET# [id number] Completed 05/27/2022, 01/18/2021, 02/10/2020, Additional history exists GARDASIL-HPV IMMUNIZATION SERIES Aged Out No longer eligible based on patient's age to complete this topic MENINGOCOCCAL (MENACTRA/MENVEO) Aged Out No longer eligible based on patient's age to complete this topic documented as of this encounter Medical Devices Implanted Type Area In Shop Service Technician Device Identifier Shelf Expiration Date Model / Serial / Lot Lens 10.5 Sn60wf - [id number] Implanted:Qty: 1 on 04/27/2014 at OR [facility] Left: Eye [employer] 02/27/2019 SN60WF.105 / [id number] / Lens 12.5 Sn60wf - [id number] Implanted:Qty: 1 on 05/11/2014 at OR [facility] Right: Eye [employer] 02/27/2019 SN60WF.125 / [id number] / documented as of this encounter Visit [...] and were consensually agreed upon. Care Teams Ticket Agent Relationship Specialty Start Date End Date Andrae Hays MD 200 [facility] [place] [address] PCP - General Internal Medicine 04/10/16 documented as of this encounter
--- OUTSIDE RECORDS SUMMARY | 2023-05-22 13:03 | External Medical Summary | Summary of Care ---
Author Name Unknown Organization [facility] Address [address] [place] [address] Phone [phone] Care Team Providers Care Automobile Service Station Manager Name Role Phone Andrae Hays MD Primary Care Provider + Encounter Details Date Type Department Care Team Description 01/21/2023 Telemedicine General Internal Medicine [facility] 200 [facility] [place] [id number] Ta Hamilton PA-C 200 [place] [address] Type 2 diabetes mellitus with hemoglobin A1c goal of less than 7.0% ([facility])*; Diabetic polyneuropathy associated with type 2 diabetes mellitus ([facility]); Moderate persistent asthma without complication; Bronchiectasis without complication ([facility]); Chronic obstructive pulmonary disease with hypoxia ([facility]); MASSIMO on CPAP; Obesity, morbid (more than 100 lbs over ideal weight or BMI > 40) ([facility]); Primary osteoarthritis of one knee, right; [...] disorder with single episode, in partial remission ([facility]) Take by mouth 1 Capsule in the morning. 90 Capsule 3 2 Active Verapamil HCl ER 180 MG Oral Tablet Extended Release (Isoptin SR)Indications:SVT (supraventricular tachycardia) ([facility]),HTN, goal below 140/90 Take by mouth 1 Tablet in the morning. 90 Tablet 3 2 Active Albuterol Sulfate HFA 108 (90 Base) MCG/ACT Inhalation Aerosol Solution Inhale 2 Puffs by mouth every 4 hours as needed for Cough, Shortness of Breath or Wheezing. 36 g 1 3 Active oxygen IN GASIndications:Chroni c respiratory failure with hypoxia ([facility]) 1 LPM via nasal cannula with ambulation 1 Each 0 3 Active Breo Ellipta 200-25 MCG/ACT Inhalation Aerosol Powder Breath Activated (fluticasone furoate-vilanterol)In dications:COPD, group B, by GOLD 2017 classification ([facility]) USE 1 INHALATION BY MOUTH DAILY 180 Each 3 3 Active Ezetimibe 10 MG Oral Tablet (Zetia) Take 1 Tablet by mouth in the morning. 0 Active metFORMIN HCl 500 MG Oral Tablet (Glucophage)Indicatio ns:Type 2 diabetes mellitus with hemoglobin A1c goal of less than 7.0% ([facility]) TAKE 1 TABLET BY MOUTH DAILY [...] replacement status 03/28/2010 Overview: left Dr Doherty, [facility] Type 2 diabetes mellitus with hemoglobin A1c goal of less than 7.0% 06/07/2009 Overview: ICD-10 update of inactive term Vitamin D deficiency 05/25/2009 Primary localized osteoarthrosis, lower leg 03/23/2009 Osteoporosis 07/14/2002 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 Overview: [place] IgG monoclonol spike monoclonal gammopathy of undetermined [...] mRNA, LNP-s, No Pre serve, 2-Dose Series ([employer]) 02/23/2021,08/26/2020,08/05/2020 COVID-19, LNP-s, No Preserve , Jasbir-sucrose, [...] two unique identifiers. Patient (or authorized legal customer counter representative) was then informed that this was [...] hemoglobin A1c goal of less than 7.0% ([facility]) E11.9 Knee joint replacement status Z96.659 [...] Z86.69 History of epistaxis Z87.898 Diabetic polyneuropathy ([facility]) E11.42 DISH (diffuse idiopathic skeletal hyperostosis) M48.10 RLS (restless legs syndrome) G25.81 Major depressive disorder with single episode, in partial remission ([facility]) F32.4 Paroxysmal SVT (supraventricular tachycardia) ([facility]) I47.1 Statin intolerance Z78.9 Bronchiectasis without complication ([facility]) J47.9 History of tobacco abuse Z87.891 At risk for aspiration Z91.89 Dysphagia R13.10 Pulmonary nodules R91.8 COPD, group B, by GOLD 2017 classification ([facility]) J44.9 S/P ablation operation for arrhythmia Z98.890, Z86.79 Angiomyolipoma of right kidney D17.71 AVNRT (AV carleen re-entry tachycardia) ([facility]) I47.1 Obesity, morbid (more than 100 lbs over ideal weight or BMI > 40) ([facility]) E66.01 Lung nodule R91.1 S/P RF ablation operation for arrhythmia Z98.890, Z86.79 Chronic obstructive pulmonary disease with hypoxia ([facility]) J44.9, R09.02 Hidradenitis suppurativa L73.2 Current [...] Elastic Bandages & Supports (MEDICAL COMPRESSION STOCKINGS) [facility] Wear compression stockingsduring the day. Take [...] Negative Ketone, Urine Negative Negative mg/dL Specific [place], Urine 1.026 1.003 - 1.030 Blood, Urine [...] hemoglobin A1c goal of less than 7.0% ([facility]) (Primary) - Contour Next Test In Vitro Strip (Glucose Blood); Test twice daily as directed. Dx E11.9. Diabetic polyneuropathy associated with type 2 diabetes mellitus ([facility]) - DURABLE MEDICAL EQUIPMENT Moderate persistent asthma without complication Bronchiectasis without complication ([facility]) Chronic obstructive pulmonary disease with hypoxia ([facility]) - DURABLE MEDICAL EQUIPMENT Compliant with Breo and albuterol. Oxygen at night and exertion. Following with pulm MASSIMO on CPAP Obesity, morbid (more than 100 lbs over ideal weight or BMI > 40) ([facility]) Primary osteoarthritis of one knee, right [...] Office Visit Dermatology Rita Davis MD 200 [place] [address] 03/31/2023 Office Visit Cardiology Macario Liu MD [address] [place] [address] 04/22/2023 Office Visit Ophthalmology Junior Mcnamara DO [address] [place] [address] 06/16/2023 Office Visit Internal Medicine Andrae Hays MD 200 [place] [address] 11/07/2023 Office Visit Sleep Disorders Idania Garner CRNP [address] [place] [address] 11/27/2023 Office Visit Hematology Oncology Wilber Muniz MD 200 [place] [address] 12/08/2023 Telemedicine Pulmonary MaylinAb mueller MD [address] [place] [address] Cart, Telemed Pulm Gw [address] [place] [address] Scheduled Procedures Name Priority Associated Diagnoses Date/Ti [...] D LEVEL ONCE IN A LIFETIME-USE SMARTSET# [id number] Completed 05/27/2022, 01/18/2021, 02/10/2020, Additional history exists GARDASIL-HPV IMMUNIZATION SERIES Aged Out No longer eligible based on patient's age to complete this topic MENINGOCOCCAL (MENACTRA/MENVEO) Aged Out No longer eligible based on patient's age to complete this topic documented as of this encounter Medical Devices Implanted Type Area Patient Placement Coordinator Device Identifier Shelf Expiration Date Model / Serial / Lot Lens 10.5 Sn60wf - [id number] Implanted:Qty: 1 on 04/27/2014 at OR [facility] Left: Eye [employer] 02/27/2019 SN60WF.105 / [id number] / Lens 12.5 Sn60wf - [id number] Implanted:Qty: 1 on 05/11/2014 at OR [facility] Right: Eye [employer] 02/27/2019 SN60WF.125 / [id number] / documented as of this encounter Visit [...] and were consensually agreed upon. Care Teams Automobile Service Station Manager Relationship Specialty Start Date End Date Andrae Hays MD 200 [facility] [place] [address] PCP - General Internal Medicine 04/10/16 documented as of this encounter
--- OUTSIDE RECORDS SUMMARY | 2023-05-22 13:03 | External Medical Summary | Summary of Care ---
Author Name Unknown Organization [facility] Address [address] [place] [address] Phone [phone] Care Team Providers Care Scalp Specialist Name Role Phone Andrae Hays MD Primary Care Provider + Reason for Visit * Reason Onset Date Comments Medication Refill 04/10/2023 Encounter Details Date Type Department Care Team Description 04/10/2023 Refill Cardiology, [facility] [address] [place] [id number] Kamilla Poole PA-C [address] [place] [address] SVT (supraventricular tachycardia); HTN, goal below 140/90 Allergies Active Allergy Reactions Severity Noted Date [...] as of this encounter (statuses as of 04/11/2023) Medications Medication Sig Dispensed Refills Start Date [...] Dx E11.9 1 Kit 0 8 Active acetaminophen (TYLENOL) 500 MG Tablet Take [...] Active FLUoxetine HCl 10 MG Oral Capsule (PROzac)Indications:M ajor depressive disorder with single episode, in partial remission ([facility]) Take by mouth 1 Capsule in the morning. 90 Capsule 3 2 Active Albuterol Sulfate HFA 108 [...] of less than 7.0% ([facility]) Test twice daily as directed. Dx E11.9. 100 Strip 5 3 Active Spironolactone 25 MG Oral Tablet (Aldactone)Indication s:HTN, goal below 140/90 TAKE 1 TABLET BY MOUTH DAILY 90 Tablet 3 3 Active Additional Information Patient taking differently: 12.5 mg Daily(AM), Reported on 04/04/2023 Verapamil HCl ER 180 MG Oral Tablet Extended Release (Isoptin SR)Indications:SVT (supraventricular tachycardia),HTN, goal below 140/90 Take 1 Tablet by mouth in the morning. 90 Tablet 3 3 Active Verapamil HCl ER 180 MG Oral Tablet Extended Release (Isoptin SR)Indications:SVT (supraventricular tachycardia),HTN, goal below 140/90 Take by mouth 1 Tablet in the morning. 90 Tablet 3 2 04/10/20 23 Discontinu ed(Refill) documented as of this encounter (statuses as of 04/11/2023) Active Problems Problem Noted Date Hidradenitis suppurativa [...] status 03/28/2010 Overview: left Dr Doherty, [facility] Type 2 diabetes mellitus with hemoglobin A1c goal of less than 7.0% 06/07/2009 Overview: ICD-10 update of inactive term Vitamin D deficiency 05/25/2009 Primary localized osteoarthrosis, lower leg 03/23/2009 Osteoporosis 07/14/2002 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 Overview: [place] 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 Irritable bowel syndrome Chronic sinusitis MASSIMO on CPAP Overview: CPAP 7 cwp 3 LPM AHP documented as of this encounter (statuses as of 04/11/2023) Resolved Problems Problem Noted Date Resolved Date [...] as of this encounter (statuses as of 04/11/2023) Immunizations Name Administration Dates Next Due COVID-19 mRNA, LNP-s, No Pre serve, 2-Dose Series ([email or web address]) 02/23/2021,08/26/2020,08/05/2020 COVID-19, LNP-s, No Preserve , Jasbir-sucrose, Ages 12+ ([email or web address]) 09/26/2021 COVID-19, MRNA-LNP, 23-24, P F, 30 MCG/0.3 mL, 12 YRS AND ABOVE, IM ([email or web address]) 03/22/2023 Covid-19, Mrna, Lnp-s, Pf, B ivalent, [...] Miscellaneous Notes * Telephone Encounter - GUIDO Newsome - 04/11/2023 5:41 PM EDTSigned Prescriptions: Disp Refills Verapamil HCl ER 180 MG Oral Tablet Extend*90 Tab*3 Sig: Take 1 Tablet by mouth in the morning. Authorizing Provider: MARK CARL * Telephone Encounter - JAVED Carranza - 04/11/2023 8:06 AM EDTPending Prescriptions: Disp Refills Verapamil HCl ER 180 MG Oral Tablet Extend*90 Tab*3 Sig: Take 1 Tablet by mouth in the morning. * Telephone Encounter - JAVED Carranza - 04/11/2023 8:06 AM EDT Did you pend patient's preferred pharmacy and medication before forwarding?yes Pharmacy: [facility] [address] [place] [address] Pending Prescriptions: Disp Refills Verapamil HCl ER 180 MG Oral Tablet Exten*90 Tab*3 Sig: Take 1 Tablet by mouth in the morning. Last Visit: 04/04/2023 (in office), 07/18/2021 (telemedicine) Next Visit: 06/25/2023 If no future appointments scheduled, and last appointment is greater than a year ago, please schedule patient for a follow-up appointment Last date the medication was ordered: 04-22-2022 Is this request for a controlled substance?No Urine Drug Screen:No results found. However, due to the size of the patient record, not all encounters were searched. Please check Results Review for a complete set of results. Patient Phone Numbers Labs: Lab Results Component Value Date/Time CREAT 0.7 04/04/2023 04:09 PM CREAT 0.7 06/19/2020 07:30 AM POTASSIUM 4.2 04/04/2023 04:09 PM POTASSIUM 4.6 06/19/2020 07:30 AM POTASSIUM 3.9 06/18/1996 09:10 AM TSH 0.68 12/05/2022 08:14 AM TSH 0.50 06/17/2019 11:05 AM TSH 0.87 04/22/1996 10:10 AM LDLCALC 106 12/05/2022 08:14 AM LDLCALC 126 02/10/2020 11:54 AM LDLDIRECT 130 (H) 10/18/2021 11:15 AM LDLDIRECT NOT APPLICABLE 02/10/2020 11:54 AM ALT 19 04/04/2023 04:09 PM ALT 22 05/22/2020 10:25 AM HGBA1C 7.4 (H) 12/05/2022 08:14 AM HGBA1C 6.3 (H) 05/22/2020 10:25 AM documented in this encounter Plan of Treatment Upcoming Encounters Date Type Specialty Care Team Description 04/15/2023 Office Visit Dermatology Rita Davis MD 200 [facility] [place] [address] 04/21/2023 Office Visit Internal Medicine Andrae Hays MD 200 [facility] [place] [address] 04/22/2023 Office Visit Ophthalmology Junior Mcnamara DO [address] [place] [address] 06/25/2023 Office Visit Cardiology Macario Liu MD [address] [place] [address] 11/07/2023 Office Visit Sleep Disorders Idania Garner CRNP [address] [place] [address] 11/27/2023 Office Visit Hematology Oncology Wilber Muniz MD 200 [facility] [place] [address] 12/08/2023 Telemedicine Pulmonary Ab Carlisle MD [address] [facility] [place] [address] Cart, Telemed Pulm Gw [address] [place] [address] Scheduled Procedures Name Priority Associated Diagnoses [...] D LEVEL ONCE IN A LIFETIME-USE SMARTSET# [id number] Completed 05/27/2022, 01/18/2021, 02/10/2020, Additional history exists [...] this encounter Medical Devices Implanted Type Area Public Speaking Instructor Device Identifier Shelf Expiration Date Model / Serial / Lot Lens 10.5 Sn60wf - [id number] Implanted:Qty: 1 on 04/27/2014 at [place] [facility] Left: Eye [employer] 02/27/2019 SN60WF.105 / [id number] / Lens 12.5 Sn60wf - [id number] Implanted:Qty: 1 on 05/11/2014 at OR [facility] Right: Eye [employer] 02/27/2019 SN60WF.125 / [id number] / documented as of this encounter Visit Diagnoses Diagnosis SVT (supraventricular tachycardia) Other specified cardiac dysrhythmias HTN, goal below 140/90 Unspecified essential hypertension [...] and were consensually agreed upon. Care Teams Scalp Specialist Relationship Specialty Start Date End Date Andrae Hays MD [address] [place] [address], [place] [address] PCP - General Internal Medicine 04/10/16 documented as of this encounter
--- OUTSIDE RECORDS SUMMARY | 2023-05-22 13:03 | External Medical Summary | Summary of Care ---
Author Name Unknown Organization [facility] Address [address] [place] [address] Phone [phone] Care Team Providers Care Supervisor Seaming Name Role Phone Andrae Hays MD Primary Care Provider + Reason for Visit * Reason Comments Outpatient Testing Encounter Details Date Type Department Care Team Description 04/04/2023 Laboratory Laboratory [facility] [address] [place] [address] [facility] [address] [place] [address] Paroxysmal SVT (supraventricular tachycardia); AVNRT (AV carleen re-entry tachycardia); Dyspnea on [...] ications:COPD, group B, by GOLD 2017 classification ([facility]) USE 1 INHALATION BY MOUTH DAILY 180 Each 3 07/25/2022 Active Ezetimibe 10 MG Oral Tablet (Zetia) Take 1 Tablet by mouth in the morning. 0 Active metFORMIN HCl 500 MG Oral Tablet (Glucophage)Indication s:Type 2 diabetes mellitus with hemoglobin A1c goal of less than 7.0% ([facility]) TAKE 1 TABLET BY MOUTH [...] hemoglobin A1c goal of less than 7.0% ([facility]) Test twice daily as directed. [...] joint replacement status 03/28/2010 Overview: left Dr Doehrty, [facility] Type 2 diabetes mellitus with hemoglobin A1c goal of less than 7.0% 06/07/2009 Overview: ICD-10 update of inactive term Vitamin D deficiency 05/25/2009 Primary localized osteoarthrosis, lower leg 03/23/2009 Osteoporosis 07/14/2002 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 Overview: [place] IgG monoclonol spike monoclonal gammopathy of undetermined [...] mRNA, LNP-s, No Pre serve, 2-Dose Series (Viratech) 02/23/2021,08/26/2020,08/05/2020 COVID-19, LNP-s, No Preserve , Jasbir-sucrose, [...] Office Visit Dermatology Rita Davis MD [address] [place] [address] 04/21/2023 Office Visit Internal Medicine Andrae Hays MD [address] [place] [address] 04/22/2023 Office Visit Ophthalmology Junior Mcnamara DO [address] [place] [address] 06/25/2023 Office Visit Cardiology Macario Liu MD [address] [place] [address] 11/07/2023 Office Visit Sleep Disorders Idania Garner CRNP [address] [facility] [place] [address] 11/27/2023 Office Visit Hematology Oncology Wilber Muniz MD [address] [place] [address] 12/08/2023 Telemedicine Pulmonary Ab Carlisle MD [address] [place], [place] [id number] Cart, Telemed Pulm Gw [address] [place] [address] Pending Results Name Type Priority Associated Diagnoses Date /Time COMPREHENSIVE METABOLIC PANEL Lab Routine Paroxysmal SVT (supraventricular tachycardia) AVNRT (AV carleen re-entry tachycardia) Dyspnea on exertion Leg swelling 04/04/2023 4:09 PM EDT Scheduled Procedures Name Priority Associated Diagnoses Date/Ti [...] exists Influenza Vaccine (FLU shot) (#1) 2023 04/04/2023, 03/07/2022, 03/28/2021, Additional history exists Albumin/Creatinine Ratio 05/16/2023 [...] D LEVEL ONCE IN A LIFETIME-USE SMARTSET# [id number] Completed 05/27/2022, 01/18/2021, 02/10/2020, Additional history exists COVID-19 Vaccine Completed 03/22/2023, 02/2022, 09/26/2021, Additional history exists GARDASIL-HPV IMMUNIZATION SERIES Aged Out No longer eligible based on patient's age to complete this topic MENINGOCOCCAL (MENACTRA/MENVEO) Aged Out No longer eligible based on patient's age to complete this topic documented as of this encounter Medical Devices Implanted Type Area Rail Express Clerk Device Identifier Shelf Expiration Date Model / Serial / Lot Lens 10.5 Sn60wf - [id number] Implanted:Qty: 1 on 04/27/2014 at OR [facility] Left: Eye [employer] 02/27/2019 SN60WF.105 / [id number] / Lens 12.5 Sn60wf - [id number] Implanted:Qty: 1 on 05/11/2014 at OR [facility] Right: Eye [employer] 02/27/2019 SN60WF.125 / [id number] / documented as of this encounter Procedures Procedure Name Priority Date/Time Associated Diagnosis Comments CBC Routine 04/04/2023 4:09 PM EDT Paroxysmal SVT (supraventricular tachycardia) AVNRT (AV carleen re-entry tachycardia) Dyspnea on exertion Leg swelling documented in this encounter Results * (ABNORMAL) CBC (04/04/2023 4:09 PM EDT) WBC 13.62(H) 4.00 - 10.80 K/uL 04/04/2023 4:14 PM EDT [place] [address] RBC 4.14 3.85 - 5.15 M/uL 04/04/2023 4:14 PM EDT [place] [address] HGB 11.5(L) 12.0 - 15.3 g/dL 04/04/2023 4:14 PM EDT [address] HCT 37.6 36.0 - 45.2 % 04/04/2023 4:14 PM EDT [address] MCV 90.8 81.5 - 97.5 fL 04/04/2023 4:14 PM EDT [address] MCH 27.8 27.0 - 34.0 pg 04/04/2023 4:14 PM EDT [place] [address] MCHC 30.6 32.0 - 36.0 g/dL 04/04/2023 4:14 PM EDT [address] RDW 13.9 11.5 - 15.5 % 04/04/2023 4:14 PM EDT [address] PLT 505(H) 140 - 400 K/uL 04/04/2023 4:14 PM EDT [address] MPV 8.7 6.6 - 11.1 fL 04/04/2023 4:14 PM EDT [facility] 56 Blood Venous blood specimen / Unknown Venipuncture / Unknown 04/04/2023 4:09 PM EDT 04/04/2023 4:09 PM EDT Nila [facility] BLOOD ORDER ROBERT [address] [place] [address] documented in this encounter Visit Diagnoses Diagnosis Paroxysmal SVT (supraventricular tachycardia) Paroxysmal supraventricular tachycardia AVNRT (AV carleen re-entry [...] and were consensually agreed upon. Care Teams Supervisor Seaming Relationship Specialty Start Date End Date Andrae Hays MD [address] [place] [address], [place] [address] PCP - General Internal Medicine 04/10/16 documented as of this encounter
--- OUTSIDE RECORDS SUMMARY | 2023-05-22 13:04 | External Medical Summary | Summary of Care ---
Author Name Unknown Organization [facility] Address [address] [place] [address] Phone [phone] Care Team Providers Care Supply And Distribution Manager Name Role Phone Andrae Hays MD Primary Care Provider + Reason for Visit * Reason Comments eRx-Medication Refill Encounter Details Date Type Department Care Team Description 01/01/2023 Refill [address]iology, [facility] [address] [place] [address] Mesha Liu MD [address] [facility] [address] PSVT (paroxysmal supraventricular tachycardia) ([facility]); AVNRT (AV carleen re-entry tachycardia) ([facility]) Allergies Active Allergy Reactions Severity Noted Date [...] as of this encounter (statuses as of 01/01/2023) Medications Medication Sig Dispensed Refills Start Date [...] by mouth in the morning. 0 Active Contour Next Test In Vitro Strip (Glucose Blood)Indications:Ty pe 2 diabetes mellitus with hemoglobin A1c goal of less than 7.0% (HCC) Test twice daily as directed. Dx E11.9. 100 Strip 5 2 Active Furosemide 20 MG Oral Tablet (Lasix) Take one 1-2 days per week as needed for fluid retention 20 Tablet 5 2 Active Mupirocin 2 % External Ointment (Bactroban) NEEDED 0 2 Active Spironolactone 25 MG Oral Tablet (Aldactone) TAKE 1 TABLET BY MOUTH DAILY 90 Tablet 3 2 Active Additional Information Patient taking differently: 12.5 mg Oral Daily(AM), Reported on 08/09/2022 Famotidine 20 MG Oral Tablet (Pepcid)Indications: GERD (gastroesophageal reflux disease) TAKE 1 TABLET BY MOUTH TWICE DAILY 180 Tablet 3 2 Active FLUoxetine HCl 10 MG Oral Capsule (PROzac)Indications: Major depressive disorder with single episode, in partial remission ([facility]) Take by mouth 1 Capsule in the morning. 90 Capsule 3 2 Active Verapamil HCl ER 180 MG Oral Tablet Extended Release (Isoptin SR)Indications:SVT (supraventricular tachycardia) ([facility]),HTN, goal below 140/90 Take by mouth 1 Tablet in the morning. 90 Tablet 3 2 Active Albuterol Sulfate HFA 108 (90 Base) MCG/ACT Inhalation Aerosol Solution Inhale 2 Puffs by mouth every 4 hours as needed for Cough, Shortness of Breath or Wheezing. 36 g 1 3 Active oxygen IN GASIndications:Chron ic respiratory failure with hypoxia ([facility]) 1 LPM via nasal cannula with ambulation 1 Each 0 3 Active Breo Ellipta 200-25 MCG/ACT Inhalation Aerosol Powder Breath Activated (fluticasone furoate-vilanterol)I ndications:COPD, group B, by GOLD 2017 classification ([facility]) USE 1 INHALATION BY MOUTH DAILY 180 Each 3 3 Active Ezetimibe 10 MG Oral Tablet (Zetia) Take 1 Tablet by mouth in the morning. 0 Active metFORMIN HCl 500 MG Oral Tablet (Glucophage)Indicati ons:Type 2 diabetes mellitus with hemoglobin A1c goal of less than 7.0% ([facility]) TAKE 1 TABLET BY MOUTH DAILY [...] Oral Tablet (Tambocor)Indication s:PSVT (paroxysmal supraventricular tachycardia) (HCC),AVNRT (AV carleen re-entry tachycardia) (HCC) TAKE ONE TABLET BY MOUTH TWICE A DAY (MORNING AND BEFORE BEDTIME) 180 Tablet 3 3 Active Flecainide Acetate 50 MG Oral Tablet (Tambocor)Indication s:PSVT (paroxysmal supraventricular tachycardia) (HCC),AVNRT (AV carleen re-entry tachycardia) (HCC) Take by mouth 1 Tablet in the morning AND 1 Tablet before bedtime. 180 Tablet 3 2 023 Discontinued documented as of this encounter (statuses as of 01/01/2023) Active Problems Problem Noted Date Hidradenitis suppurativa [...] replacement status 03/28/2010 Overview: left Dr Doherty, [facility] Type 2 diabetes mellitus with hemoglobin A1c goal of less than 7.0% 06/07/2009 Overview: ICD-10 update of inactive term Vitamin D deficiency 05/25/2009 Primary localized osteoarthrosis, lower leg 03/23/2009 Osteoporosis 07/14/2002 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 Overview: [place] 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 Irritable bowel syndrome Chronic sinusitis MASSIMO on CPAP Overview: CPAP 7 cwp 3 LPM AHP documented as of this encounter (statuses as of 01/01/2023) Resolved Problems Problem Noted Date Resolved Date [...] as of this encounter (statuses as of 01/01/2023) Immunizations Name Administration Dates Next Due COVID-19 mRNA, LNP-s, No Pre serve, 2-Dose Series (Thumb) 02/23/2021,08/26/2020,08/05/2020 COVID-19, LNP-s, No Preserve , Jasbir-sucrose, Ages 12+ (Thumb) 09/26/2021 Covid-19, Mrna, Lnp-s, Pf, B ivalent, [...] encounter Miscellaneous Notes * Telephone Encounter - Mesha Liu MD - 01/01/2023 1:16 PM EDTSigned Prescriptions: Disp Refills Flecainide Acetate 50 MG Oral Tablet (Tamb*180 Ta*3 Sig: TAKE ONE TABLET BY MOUTH TWICE A DAY (MORNING AND BEFORE BEDTIME) Authorizing Provider: MESHA LIU * Telephone Encounter - Chyna Espinal CMA - 01/01/2023 11:59 AM EDTPending Prescriptions: Disp Refills Flecainide Acetate 50 MG Oral Tablet [Phar*180 Ta*3 Sig: TAKE ONE TABLET BY MOUTH TWICE A DAY (MORNING AND BEFORE BEDTIME) * Telephone Encounter - Chyna Espinal CMA - 01/01/2023 11:57 AM EDT Did you pend patient's preferred pharmacy and medication before forwarding?yes Pharmacy: [facility] [address] [place] [address] Pending Prescriptions: Disp Refills Flecainide Acetate 50 MG Oral Tablet (Aguilar*180 Ta*3 Sig: TAKE ONE TABLET BY MOUTH TWICE A DAY (MORNING AND BEFORE BEDTIME) Last Visit: 08/09/2022 (in office), 07/18/2021 (telemedicine) Next Visit: 03/31/2023 If no future appointments scheduled, and last appointment is greater than a year ago, please schedule patient for a follow-up appointment Last date the medication was ordered: Is this request for a controlled substance?No [...] Office Visit Dermatology Rita Davis MD [address] [facility] [place] [address] 03/31/2023 Office Visit Cardiology Mesha Liu MD [address] [place] [address] 04/22/2023 Office Visit Ophthalmology Junior Mcnamara DO [address] [place] [address] 06/16/2023 Office Visit Internal Medicine Andrae Hays MD [address] [facility] [place] [address] 11/07/2023 Office Visit Sleep Disorders Idania Garner CRNP [address] [place] [address] 11/27/2023 Office Visit Hematology Oncology Wilber Muniz MD [address] [facility] [place] [address] 12/08/2023 Telemedicine Pulmonary Ab Carlisle MD [address] [facility] [place] [address] Cart, Telemed Pulm Gw [address] [facility] [place] [address] Scheduled Procedures Name Priority Associated Diagnoses Date/Ti [...] for Pts 12 and Over 11/20/2023 11/19/2022 GFR 12/06/2023 12/05/2022, 08/01, 05/27/2022, Additional history exists Yearly B-12 12/06/2023 12/05/2022, 12/29, 10/18/2021, Additional history [...] D LEVEL ONCE IN A LIFETIME-USE SMARTSET# [id number] Completed 05/27/2022, 01/18/2021, 02/10/2020, Additional history exists GARDASIL-HPV IMMUNIZATION SERIES Aged Out No longer eligible based on patient's age to complete this topic MENINGOCOCCAL (MENACTRA/MENVEO) Aged Out No longer eligible based on patient's age to complete this topic documented as of this encounter Medical Devices Implanted Type Area Forklift Wheel Loader Device Identifier Shelf Expiration Date Model / Serial / Lot Lens 10.5 Sn60wf - [id number] Implanted:Qty: 1 on 04/27/2014 at OR [facility] Left: Eye [employer] 02/27/2019 SN60WF.105 / [id number] / Lens 12.5 Sn60wf - [id number] Implanted:Qty: 1 on 05/11/2014 at OR [facility] Right: Eye [employer] 02/27/2019 SN60WF.125 / [id number] / documented as of this encounter Visit Diagnoses Diagnosis PSVT (paroxysmal supraventricular tachycardia) (HCC) Paroxysmal supraventricular tachycardia AVNRT (AV carleen re-entry tachycardia) (HCC) Other specified cardiac dysrhythmias documented in this encounter Advance Directives Latest [...] and were consensually agreed upon. Care Teams Supply And Distribution Manager Relationship Specialty Start Date End Date Andrae Hays MD [address] [place] [phone] PCP - General Internal Medicine 04/10/16 documented as of this encounter
--- OUTSIDE RECORDS SUMMARY | 2023-05-22 13:04 | External Medical Summary | Summary of Care ---
Author Name Unknown Organization [facility] Address [address] [place] [address] Phone [phone] Care Team Providers Care Wire Strander Name Role Phone Andrae Hays MD Primary Care Provider + Reason for Visit * Reason Comments NEW PATIENT Bilateral breast michelle n, and Left is greater than right. * Evaluate & Treat - Unlimited Visits (Within 10 days (routine)) - Authorized Specialty Diagnoses / Procedures Referred By Yared jane Referred To Contact General Surgery - Breast Surgery / Surgical Oncology Diagnoses Chronic breast pain Andrae Hays MD [address] [place] [address] Referral ID Status Reason Start Date Expiration Date Visits Requested Visits Authorized [id number] Authorized Specialty Services Required 11/19/2022 999 999 Encounter Details Date Type Department Care Team Description 12/12/2022 Office Visit General Surgery, [facility] [address] [place] [address] Reji Delgado MD [address] [facility] [place] [id number] Hemorrhoids, unspecified hemorrhoid type*; Breast pain; Encounter for screening mammogram for malignant neoplasm of breast Allergies Active Allergy Reactions Severity Noted Date [...] as of this encounter (statuses as of 12/12/2022) Medications Medication Sig Dispensed Refills Start Date [...] hemoglobin A1c goal of less than 7.0% ([facility]) Test twice daily as directed. Dx E11.9. 100 Strip 5 07/23/2021 Active Furosemide 20 MG Oral Tablet (Lasix) Take one 1-2 days per week as needed for fluid retention 20 Tablet 5 10/31/2021 Active Mupirocin 2 % External Ointment (Bactroban) NEEDED 0 11/30/2021 Active Flecainide Acetate 50 MG Oral Tablet (Tambocor)Indications: PSVT (paroxysmal supraventricular tachycardia) ([facility]),AVNRT (AV carleen re-entry tachycardia) ([facility]) Take by mouth 1 Tablet in the morning AND 1 Tablet before bedtime. 180 Tablet 3 01/03/2022 Active Spironolactone 25 MG Oral Tablet (Aldactone) TAKE 1 TABLET BY MOUTH DAILY 90 Tablet 3 01/14/2022 Active Additional Information Patient taking differently: 12.5 mg Oral Daily(AM), Reported on 08/09/2022 Famotidine 20 MG Oral Tablet (Pepcid)Indications:GE RD (gastroesophageal reflux disease) TAKE 1 TABLET BY MOUTH TWICE DAILY 180 Tablet 3 01/16/2022 Active FLUoxetine HCl 10 MG Oral Capsule (PROzac)Indications:Ma terrance depressive disorder with single episode, in partial remission ([facility]) Take by mouth 1 Capsule in the morning. 90 Capsule 3 04/16/2022 Active Verapamil HCl ER 180 MG Oral Tablet Extended Release (Isoptin SR)Indications:SVT (supraventricular tachycardia) ([facility]),HTN, goal below 140/90 Take by mouth 1 Tablet in the morning. 90 Tablet 3 04/22/2022 Active Albuterol Sulfate HFA 108 (90 Base) MCG/ACT Inhalation Aerosol Solution Inhale 2 Puffs by mouth every 4 hours as needed for Cough, Shortness of Breath or Wheezing. 36 g 1 07/18/2022 Active oxygen IN GASIndications:Chronic respiratory failure with hypoxia ([facility]) 1 LPM via nasal cannula with ambulation 1 Each 0 07/23/2022 Active Breo Ellipta 200-25 MCG/ACT Inhalation Aerosol Powder Breath Activated (fluticasone furoate-vilanterol)Ind ications:COPD, group B, by GOLD 2017 classification ([facility]) USE 1 INHALATION BY MOUTH DAILY [...] Dx J44.9 270 mL 3 11/22/2022 Active documented as of this encounter (statuses as of 12/12/2022) Active Problems Problem Noted Date Hidradenitis suppurativa [...] replacement status 03/28/2010 Overview: left Dr Doherty, [facility] Type 2 diabetes mellitus with hemoglobin A1c goal of less than 7.0% 06/07/2009 Overview: ICD-10 update of inactive term Vitamin D deficiency 05/25/2009 Primary localized osteoarthrosis, lower leg 03/23/2009 Osteoporosis 07/14/2002 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 Overview: Coleta 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 Irritable bowel syndrome Chronic sinusitis MASSIMO on CPAP Overview: CPAP 7 cwp 3 LPM AHP documented as of this encounter (statuses as of 12/12/2022) Resolved Problems Problem Noted Date Resolved Date [...] as of this encounter (statuses as of 12/12/2022) Immunizations Name Administration Dates Next Due COVID-19 mRNA, LNP-s, No Pre serve, 2-Dose Series (PlayData) 02/23/2021,08/26/2020,08/05/2020 COVID-19, LNP-s, No Preserve , Jasbir-sucrose, [...] as of this encounter Progress Notes * Reji Delgado MD - 12/12/2022 1:20 PM EDT SUBJECTIVE: Marycruz Cano is a 77 year old female. Chief Complaint Patient presents with NEW PATIENT Bilateral breast pain, and Left is greater than right. HPI: 77-year-old woman returns for recheck of conservative treatment of hemorrhoids as well as new onset breast pain. She states that since taking the prescription strength hemorrhoid cream, these have resolved significantly. She denies any problems with the hemorrhoids. She is having bilateral breast pain in the outer quadrants. She states that this pain began when she started taking a calcium channel mik a few years ago. She states the pain has been worsening. She denies masses. She had amammogram last over a year ago which was negative. She states that that mammogram cause significantpain due to the breast pain. 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 ([facility]) 09/24/2017 COPD (chronic obstructive pulmonary disease) ([facility]) Dependence on nocturnal oxygen therapy 12/25/2015 Depressive disorder, not elsewhere classified Diabetic polyneuropathy ([facility]) 09/24/2017 Diastolic dysfunction 04/29/2017 Diverticulosis of [...] joint replacement status 03/28/[address] Doherty, [facility] Lung nodule 02/11/2020 Menopause 1944 started ERT at that time Need for prophylactic hormone replacement therapy (postmenopausal) age 43 Neuropathy 05/22/2020 No advance directive on file 01/23/2005 Yes, Patient instructed to provide copy of advance directive for provider to review and to be scanned into Electronic Medical Record Nocturnal hypoxia 12/25/2015 MASSIMO on CPAP 02/13/2005 on CPAP Osteoporosis osteopenia Other paraproteinemias 08/1999 Coleta 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 Paroxysmal SVT (supraventricular tachycardia) ([facility]) 05/26/2018 Retina hole, left 04/01/2018 Retinal tear left eye Senile nuclear cataract 02/17/2014 Tim Sleep apnea, obstructive Special screening for osteoporosis 06/2002 3-4 % decline compared to 1999, repeat in 2005 Past Surgical History: Procedure Laterality Date ABLATE HEART DYSRHYTHM FOCUS 12/2018 ARTHROPLASTY KNEE TOTAL 03/28/2010 Bessy, left at [facility] CAROTID (INTERNAL) ARTERY CATHETHER PLACEMENT Left 09/29/2015 CATHETER PLACEMENT INTERNAL CAROTID ARTERY performed by Nehemias Wells MD at [facility] DELIVERY 1969, 1972 x 2 COLONOSCOPY W/ LESION REMOVAL, SNARE 07/23/2011 Hyperplastic polyp,severe diverticulosiss,repeat colonoscopy 5 years COLORECTAL CANCER SCREEN; COLON 01/07/2002 normal repeat in 10 years, Dr Seals, [facility] DENTAL SURGERY PROCEDURE NEC 1961 wisdom teeth DEXA SCAN/BONE MINERAL AXIAL 2002 repeat in 2002, osteopenia noted, repeat 06 DEXA SCAN/BONE MINERAL AXIAL 07/25/2009 normal, low risk repeat 2011 EGD, FLEXIBLE, DIAGNOSTIC 03/20/2017 normal/[facility] ELECTROPHYSIOLOGY EVAL & ABLATE SVT N/A 04/14/2020 SVT EPS AND CATHETER ABLATION performed by Linda Camp IV, MD at [facility] FLUORO BARIUM ENEMA 04/24/1998 extensive spastic diverticulosis [...] NASAL ENDOSCOPY, DX W/SINUSOSCOPY 05/09/2011 Dr. [place] [facility] [place],TOTAL ETHMOIDECTOMY 05/09/2011 Dr. Villarreal [facility] OTHER (INFORMATION) ACT 112 SIGNED 09/28/21 DR. MCNAMARA PULMONARY FUNCTION TEST SCREEN 10/04/1998 moderate obstruction REMOVE CATARACT, INSERT LENS PROSTH 04/27/2014 EXTRACAPSULAR CATARACT REMOVAL WITH INTRAOCULAR LENS performed by Antony Dumont MD at [facility] REMOVE CATARACT, INSERT LENS PROSTH 05/11/2014 EXTRACAPSULAR CATARACT REMOVAL WITH INTRAOCULAR LENS performed by Antony Dumont MD at [facility] REMOVE CATARACT, INSERT LENS PROSTH 05/11/2014 EXTRACAPSULAR CATARACT REMOVAL WITH INTRAOCULAR LENS performed by Antony Dumont MD at OR [facility] REMOVE GALLBLADDER 06/30/1996 laporscopic cholecystectomy, Dr Gunderson, [place], [place] REMOVE TONSILS & ADENOIDS, UNDER 12 1953 SINUS SURGERY PROCEDURE NEC 01/1999 with deviated septum repair, Dr Vidal, SMALL BOWEL ENDOSCOPY W/BX 07/03/2010 small sliding hiatal hernia, normal tissue bx TENDON SHEATH INCISION, FINGER 2007 right [place] THROMBOENDARECTOMY W/PATCH,NECK INCISION Left 09/29/2015 CAROTID ENDARTERECTOMY performed by Nehemias Wells MD at [facility] TOTAL ABD HYSTERECTOMY W/WO REMOVAL OF TUBE(S) Bilateral age 43 TOTAL HYSTERECTOMY 1987 with BSO Current Outpatient Medications Medication Sig Dispense Refill [...] 0 Respiratory Therapy Supplies (NEBULIZER AIR TUBE/PLUGS) [facility] Use as directed 1 Each 0 Blood Glucose Monitoring Suppl (CONTOUR NEXT ONE) KIT Use as directed. Dx E11.9 1 Kit 0 Elastic Bandages & Supports (MEDICAL COMPRESSION STOCKINGS) MISC Wear compression stockingsduring the day. Take off [...] 1 Tablet by mouth in the morning. Contour Next Test In Vitro Strip (Glucose Blood) Test twice daily as directed. Dx E11.9. 100 Strip 5 Furosemide 20 MG Oral Tablet (Lasix) Take one 1-2 days per week as needed for fluid retention 20 Tablet 5 Mupirocin 2 % External Ointment (Bactroban) NEEDED Flecainide Acetate 50 MG Oral Tablet (Tambocor) Take by mouth 1 Tablet in the morning AND 1 Tablet before bedtime. 180 Tablet 3 Spironolactone 25 MG Oral Tablet (Aldactone) TAKE 1 TABLET BY MOUTH DAILY (Patient taking differently: Take 0.5 Tablets by mouth in the morning.) 90 Tablet 3 Famotidine 20 MG Oral Tablet (Pepcid) TAKE 1 TABLET BY MOUTH TWICE DAILY 180 Tablet 3 FLUoxetine HCl 10 MG Oral [...] of Breath. Dx J44.9 270 mL 3 No current facility-administered medications for this [...] when she uses it Sorbitol Sugar alcohol Social History: Social History Tobacco Use Smoking status: Former Packs/day: 1.00 Years: 30.00 Pack years: 30.00 Types: Cigarettes Quit date: 2015 Years since quittin.4 Smokeless tobacco: Never Substance Use Topics Alcohol use: No Vaping/E-Cigarette Use Vaping/E-Cigarette Use Never User Vaping/E-Cigarette Substances Nicotine No Other No Flavoring No THC No Cannabidiol (CBD) No Vaping/E-Cigarette Devices Disposable No Pre-filled or Refillable Cartridge No Refillable Tank No Pre-filled Pod No OBJECTIVE: PHYSICAL EXAM: There were no vitals taken for this visit. General: alert, healthy and no distress Head: Normocephalic, No masses, lesions, tenderness or abnormalities Eye Exam: PERRLA, extraocular movements intact, conjunctiva are pink and non- injected, sclera clear Abdomen: abdomen soft, non-tender and no masses or organomegaly Breasts: Inspection negative, No nipple retraction or dimpling, No nipple discharge or bleeding, Noaxillary or supraclavicular adenopathy, Normal to palpation without dominant masses Skin: skin color, texture, turgor are normal, no rashes or significant lesions ASSESSMENT: K64.9 Hemorrhoids, unspecified hemorrhoid type (primary encounter diagnosis) N64.4 Breast pain Z12.31 Encounter for screening mammogram for malignant neoplasm of breast PLAN: 77-year-old woman with now resolved hemorrhoids. She was reassured about the breast pain. We discussed the need for undergoing bra fitting to ensure she is wearing the appropriate bra. She states that she most of the time does not wear a bra due to her breathing issues. I have ordered a mammogram and encouraged her to schedule this, although she does not want to go through it due to the breast pain. I discussed that although I was unable to palpate any masses in her breasts, the mammogram wouldbe better at picking up smaller findings. She will follow-up with us p.r.n.. She will call with anynew or concerning symptoms. Reji Delgado MD 12/12/2022 documented in this encounter Nursing Notes * Clement Jarrett MED ASSIST - 12/12/2022 11:11 AM EDT Chief Complaint Patient presents with NEW PATIENT Bilateral breast pain, and Left is greater than right. Verified patient. Some pain on her breast 6-01/06 on/off, patient sates that her hemorrhoids is doing really fine now. documented in this encounter Plan of Treatment Upcoming Encounters Date Type Specialty Care Team Description 12/16/2022 Office Visit Gastroenterology Jeanie Healy CRNP [address] [place] [address] 12/17/2022 Imaging Radiology 02/20/2023 Office Visit Dermatology Rita Davis MD [address] [place] [address] 03/31/2023 Office Visit Cardiology Macario Liu MD [address] [facility] [place] [address] 04/22/2023 Office Visit Ophthalmology Junior Mcnamara DO [address] [facility] [place] [address] 06/16/2023 Office Visit Internal Medicine Andrae Hays MD [address] [place] [address] 11/07/2023 Office Visit Sleep Disorders Idania Garner CRNP [address] [facility] [place] [address] 11/27/2023 Office Visit Hematology Oncology Wilber Muniz MD [address] [place] [address] 12/08/2023 Telemedicine Pulmonary Ab Carlisle MD [address] [facility] [place] [address] Cart, Telemed Pulm Gw [address] [facility] [place] [address] Scheduled Orders Name Type Priority Associated Diagnoses Orde r Schedule MAMMOGRAM SCREENING NAEL BILATERAL Medical Imaging Routine Breast pain Encounter for screening mammogram for malignant neoplasm of breast Expected: 12/13/2022, Expires: 01/12/2024 Scheduled Procedures Name Priority Associated Diagnoses Date/Ti [...] Vaccine: 65+ Years Completed 09/24/2017, 04/28/2015, 03/23/2009 Influenza Vaccine (FLU shot) Completed 03/07/2022, 03/28/2021, 03/28/2021, Additional history exists COVID-19 Vaccine Completed 03/08/2022, , 02/23/2021, Additional history exists VITAMIN D LEVEL ONCE IN A LIFETIME-USE SMARTSET# [id number] Completed 05/27/2022, 01/18/2021, 02/10/2020, Additional history exists GARDASIL-HPV IMMUNIZATION SERIES Aged Out No longer eligible based on patient's age to complete this topic MENINGOCOCCAL (MENACTRA/MENVEO) Aged Out No longer eligible based on patient's age to complete this topic documented as of this encounter Medical Devices Implanted Type Area Printing Roller Handler Device Identifier Shelf Expiration Date Model / Serial / Lot Lens 10.5 Sn60wf - [id number] Implanted:Qty: 1 on 04/27/2014 at OR [facility] Left: Eye [employer] 02/27/2019 SN60WF.105 / [id number] / Lens 12.5 Sn60wf - [id number] Implanted:Qty: 1 on 05/11/2014 at OR [facility] Right: Eye [employer] 02/27/2019 SN60WF.125 / [id number] / documented as of this encounter Visit Diagnoses Diagnosis Hemorrhoids, unspecified hemorrhoid type- Primary Breast pain Mastodynia Encounter for screening mammogram for malignant neoplasm of breast Other screening mammogram documented in this encounter Advance Directives Latest [...] and were consensually agreed upon. Care Teams Wire Strander Relationship Specialty Start Date End Date Andrae Hays MD [address] [place] [id number] PCP - General Internal Medicine 04/10/16 documented as of this encounter
--- OUTSIDE RECORDS SUMMARY | 2023-05-22 13:04 | External Medical Summary ---
Author Name Unknown Address Unknown Organization K01[place] [place] [address] [facility] [address] Laboratory Report Ordering Provider Test Date Status PRIYANKA GARRETT 12/05/2022 08:14:23 Final Observation Date Value Abnormality Reference (Units ) Status HbA1C 12/05/2022 08:14:23 7.4 Above high normal 4. 0-5.6 (%) Final The use of HbA1c to monitor glycemic status is based on normal hemoglobin and HbA composition. This test should not be used in patients with abnormal hemoglobin that affects the half life of the red blood cell or the in vivo glycation rates. Glucose, estimated average 12/05/2022 08:14:23 166 Above high normal <126 (mg/dL) Ildefonso hull Performing Location [facility] [place] [address] [facility] [address]
--- OUTSIDE RECORDS SUMMARY | 2023-05-22 13:04 | External Medical Summary ---
Author Name Unknown Address Unknown Organization K09:[facility] [address] [place] [address] Laboratory Report Ordering Provider Test Date Status CHRISTOPHER ANDERSON 12/05/2022 08:14:23 Final Observation Date Value Abnormality Reference (Units ) Status BUN 12/05/2022 08:14:23 19 6-20 (mg/dL) Final Creatinine 12/05/2022 08:14:23 0.8 0.5-1.0 (mg/dL) Final Glomerular filtration rate/1.73 sq M.predicted [Volume Rate/Area] in Serum, Plasma or Blood by Creatinine-based formula (CKD-EPI) 12/05/2022 08:14:23 78 >=60 (mL/min) Final eGFR is calculated based on the CKD-EPI 2020 equation SODIUM 12/05/2022 08:14:23 140 135-146 (m mol/L) Final Potassium 12/05/2022 08:14:23 4.3 3.5-5.1 (m mol/L) Final Cl 12/05/2022 08:14:23 104 98-107 (mm ol/L) Final CO2 12/05/2022 08:14:23 24 22-32 (mmo l/L) Final Anion gap 12/05/2022 08:14:23 12 7-15 (mmol /L) Final Glucose 12/05/2022 08:14:23 163 Above high normal 70 -120 (mg/dL) Final Albumin 12/05/2022 08:14:23 4.4 3.8-5.0 (g /dL) Final AST (Aspartate aminotransferase) 12/05/2022 08:14:23 16 10-35 (U/L) Fin al Alk Phos 12/05/2022 08:14:23 128 35-130 (U/ L) Final Bilirubin, Total 12/05/2022 08:14:23 0.6 <=1 .2 (mg/dL) Final Calcium 12/05/2022 08:14:23 9.8 8.4-10.2 ( mg/dL) Final Protein 12/05/2022 08:14:23 7.9 6.0-8.3 (g /dL) Final ALT (Alanine aminotransferase) 12/05/2022 08:14:23 20 10-35 (U/L) Ildefonso hull Performing Location [facility] [address] [place] [address]
--- OUTSIDE RECORDS SUMMARY | 2023-05-22 13:04 | External Medical Summary ---
Author Name Unknown Address Unknown Organization K01:[facility] [place] [facility] [address] [facility] [address] Laboratory Report Ordering Provider Test Date Status CHRISTOPHER ANDERSON 12/05/2022 08:14:23 Final Observation Date Value Abnormality Reference (Units ) Status [place] light chains, Free, Serum 12/05/2022 08:14:23 32.54 Above high normal 3.30-19.40 (mg/L) Final Lambda light chains, free, Serum 12/05/2022 08:14:23 13.76 5.71-26.30 (mg/L) Final KAPPA LAMBDA [facility] RATIO 12/05/2022 08:14:23 2.36 Above high normal 0.26-1.65 Final Performing Location [facility] [place] [facility] [place] [address]
--- OUTSIDE RECORDS SUMMARY | 2023-05-22 13:04 | External Medical Summary | Summary of Care ---
Author Name Unknown Organization [facility] Address [address] [place] [address] Phone [phone] Care Team Providers Care Case Maker Name Role Phone Andrae Hays MD Primary Care Provider + Reason for Visit * Reason Comments Follow Up COPD Lung Nodule Encounter Details Date Type Department Care Team Description 12/06[facility] [address], [place] [id number] Ab Carlisle MD [address], [place] [phone] Cart, Telemed Pulm Gw [address] [place] [address] Chronic obstructive pulmonary disease with hypoxia (HCC)* Allergies Active Allergy Reactions Severity Noted Date [...] as of this encounter (statuses as of 12/06/2022) Medications Medication Sig Dispensed Refills Start Date [...] Oral Tablet (Tambocor)Indications: PSVT (paroxysmal supraventricular tachycardia) ([facility]),AVNRT (AV carleen re-entry tachycardia) ([facility]) Take by mouth 1 Tablet in the [...] disorder with single episode, in partial remission ([facility]) Take by mouth 1 Capsule in the morning. 90 Capsule 3 04/16/2022 Active Verapamil HCl ER 180 MG Oral Tablet Extended Release (Isoptin SR)Indications:SVT (supraventricular tachycardia) ([facility]),HTN, goal below 140/90 Take by mouth 1 Tablet in the morning. 90 Tablet 3 04/22/2022 Active Albuterol Sulfate HFA 108 (90 Base) MCG/ACT Inhalation Aerosol Solution Inhale 2 Puffs by mouth every 4 hours as needed for Cough, Shortness of Breath or Wheezing. 36 g 1 07/18/2022 Active oxygen IN GASIndications:Chronic respiratory failure with hypoxia ([facility]) 1 LPM via nasal cannula with ambulation 1 Each 0 07/23/2022 Active Breo Ellipta 200-25 MCG/ACT Inhalation Aerosol Powder Breath Activated (fluticasone furoate-vilanterol)Ind ications:COPD, group B, by GOLD 2017 classification ([facility]) USE 1 INHALATION BY MOUTH DAILY 180 Each 3 07/25/2022 Active Ezetimibe 10 MG Oral Tablet (Zetia) Take 1 Tablet by mouth in the morning. 0 Active metFORMIN HCl 500 MG Oral Tablet (Glucophage)Indication s:Type 2 diabetes mellitus with hemoglobin A1c goal of less than 7.0% ([facility]) TAKE 1 TABLET BY MOUTH DAILY WITH [...] as of this encounter (statuses as of 12/06/2022) Active Problems Problem Noted Date Hidradenitis suppurativa [...] status 03/28/2010 Overview: left Dr Doherty, [facility] Type 2 diabetes mellitus with hemoglobin A1c goal of less than 7.0% 06/07/2009 Overview: ICD-10 update of inactive term Vitamin D deficiency 05/25/2009 Primary localized osteoarthrosis, lower leg 03/23/2009 Osteoporosis 07/14/2002 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 Overview: [place] 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 Irritable bowel syndrome Chronic sinusitis MASSIMO on CPAP Overview: CPAP 7 cwp 3 LPM AHP documented as of this encounter (statuses as of 12/06/2022) Resolved Problems Problem Noted Date Resolved Date [...] 07/31/2015 12/04/2018 HTN, goal below 130/80 06/28/2015 10 6 COPD, moderate 01/23/2015 12/09/2018 Overview: Per [...] as of this encounter (statuses as of 12/06/2022) Immunizations Name Administration Dates Next Due COVID-19 mRNA, LNP-s, No Pre serve, 2-Dose Series ([employer]) 02/23/2021,08/26/2020,08/05/2020 COVID-19, LNP-s, No Preserve , Jasbir-sucrose, [...] Sign Reading Time Taken Comments Blood Pressure 120/70 12/06/2022 11:20 AM EDT Pulse 81 12/06/2022 11:20 AM EDT Temperature 35.9 C (96.6 F) 12/06/2022 11:20 AM E DT Respiratory Rate 16 12/06/2022 11:20 AM EDT Oxygen Saturation 94% 12/06/2022 11:20 AM EDT Inhaled Oxygen Concentration - - Weight 105.2 kg (232 lb) 12/06/2022 11:20 AM EDT Height 158.8 cm (5' 2.5") 12/06/2022 11:20 AM ED T Body Mass Index 41.76 12/06/2022 11:20 AM EDT documented in this [...] as of this encounter Progress Notes * Ab Carlisle MD - 12/06/2022 11:16 AM EDT Patient location: CLINIC. I was not in a hospital or clinic location. After connecting through [employer], patient was verified with two unique identifiers. Patient (or authorized legal inside account representative) was then informed that this was a Telemedicine visit and being conducted confidentially over secure lines. My office door was closed. No one else was in the room with me. Patient acknowledged consent and understanding of privacy and security of the Telemedicine visit, and gave permission to have atelemedicine presenter stay in the room in order to assist with the history and to conduct the examas needed. I informed the patient that I have reviewed their record in [facility] and presented the opportunity for them to ask any questions regarding the visit today. The patient agreed to participate. Marycruz Cano is a(n) 77 year old female presents forCOPD, asthma history of tobacco use, and lung nodules.Since her last visit, she has been doing well. She denies chest pain or shortness of breath. She uses 1 liter of oxygen with exertion. She denies leg swelling or chest pain. 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 ([facility]) 09/24/2017 COPD (chronic obstructive pulmonary disease) (HCC) [...] joint replacement status 03/28/[address] Doherty, [facility] Lung nodule 02/11/2020 Menopause 1944 started ERT at that time Need for prophylactic hormone replacement therapy (postmenopausal) age 43 Neuropathy 05/22/2020 No advance directive on file 01/23/2005 Yes, Patient instructed to provide copy of advance directive for provider to review and to be scanned into Electronic Medical Record Nocturnal hypoxia 12/25/2015 MASSIMO on CPAP 02/13/2005 on CPAP Osteoporosis osteopenia Other paraproteinemias 08/1999 [place] 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 Paroxysmal SVT (supraventricular tachycardia) (HCC) 05/26/2018 Retina hole, left 04/01/2018 Retinal tear left eye Senile nuclear cataract 02/17/2014 Tim Sleep apnea, obstructive Special screening for osteoporosis 06/2002 3-4 % decline compared to 1999, repeat in 2005 In general, pleasant female in no distress Awake and alert No audible wheezes No conversational dyspnea Nl affect I reviewed the last two pulmonary notes CT scan chest I agree with official report FINDINGS LINES AND DEVICES: None. LUNGS: Scarring is again seen in the lung bases. Scattered pulmonary nodules, measuring up to 6 mm in the right lung, appear unchanged and are likely benign. No new suspicious nodules or infiltrates are seen. LARGE AIRWAYS: Within normal limits. PLEURA: No pleural effusions. VESSELS: Atherosclerotic changes. HEART: Normal size. No pericardial effusion. MEDIASTINUM AND CASSANDRA: Within normal limits. CHEST WALL/SOFT TISSUES: Within normal limits. UPPER ABDOMEN: The patient is status post cholecystectomy. BONES: Degenerative changes. IMPRESSION IMPRESSION No suspicious pulmonary nodules. Impression- Moderately severe obstructive lung disease Plan 1. Continue with oxygen to keep saturations between 90-93% if oxygen is required. 2. Continue with current inhalers. 3. Follow up in one year or sooner I have answered the patient's questions. MD Ab Read MD documented in this encounter Nursing Notes * Zara Hogan LPN - 12/06/2022 11:19 AM EDT Chief Complaint Patient presents with Follow Up COPD Lung Nodule Interm History/Respiratory Symptoms Cough: dry Hemoptysis: no Sinus Symptoms: PND Hospitalizations: no ED Trips: no Triggers: pollen,smoke,cleaning products Nocturnal: recliner CPAP/BiPAP/O2: Cpap/O2 @ 3lpm [facility] Cat Question 12/06/2022 11:18 AM EDT - Filed by Zara Hogan LPN When do you become breathless? (2) On level ground, I walk slower than people of the same age because of breathlessness or have to stop for breath when walking at my own pace How frequently do you cough? (2) Do you have phlegm in your chest? (2) Is your chest tight? (2) How breathless do you become when walking up a hill or steps? (5) - When I walk up a hill or one flight of stairs I am very breathless How limited are you doing activities at home? (4) How confident are you leaving home with your lung condition? (2) How soundly do you sleep? (5) - I don't sleep soundly because of my lung condition How much energy do you have? (5) - I have no energy at all Total MMRC Score (range: 0 - 4) 2 Total CAT Score (range: 0 - 40) 27 Previous Responses Asthma Control Test Question 12/05/2022 9:49 AM EDT - Filed by Patient Please select the best response to the five questions below, by clicking the appropriate option button. In the past 4 weeks, how much of the time did your asthma keep you from getting as much done at work, school or at home? (4) A little of the time During the past 4 weeks, how often have you had shortness of breath? (1) More than once a day During the past 4 weeks, how often did your asthma symptoms (wheezing, coughing, shortness of breath, chest tightness or pain) wake you up at night or earlier than usual in the morning? (4) Once or twice During the past 4 weeks, how often have you used your rescue inhaler or nebulizer medication (such as albuterol)? (3) 2 or 3 times per week How would you rate your asthma control during the past 4 weeks? (4) Well controlled Total ACT Adult Score (range: 5 - 25) 16 (Moderately Controlled) Total ACT Child Score (range: 0 - 27) Incomplete documented in this encounter Plan of Treatment Upcoming Encounters Date Type Specialty Care Team Description 12/12/2022 Office Visit General Surgery Reji Delgado MD [address] [place] [address] 12/16/2022 Office Visit Gastroenterology Jeanie Healy CRNP [address] [place] [address] 12/17/2022 Imaging Radiology 02/20/2023 Office Visit Dermatology Rita Davis MD [address] [place] [address] 03/31/2023 Office Visit Cardiology Macario Liu MD [address] [place] [address] 04/22/2023 Office Visit Ophthalmology Junior Mcnamara DO [address] [place] [address] 06/16/2023 Office Visit Internal Medicine Andrae Hays MD [address] [place] [address] 11/07/2023 Office Visit Sleep Disorders Idania Garner CRNP [address] [address] 11/27/2023 Office Visit Hematology Oncology Wilber Muniz MD [address] [place] [address] 12/08/2023 Telemedicine Pulmonary Ab Carlisle MD [address] [place] [address] Cart, Telemed Pulm Gw [address] [place] [address] Scheduled Procedures Name Priority Associated Diagnoses Date/Ti me COLONOSCOPY FLEXIBLE PROXIMA L DIAGNOSTIC Recall Hx of diverticulitis of colon Health Maintenance Due Date Last Done Comments Alpha-1 Antitrypsin 1962 Zoster Vaccines (2 of 2) 11/02/2008 09/07/2008, 08/28 COLONOSCOPY-EVERY 5 YRS AGES 18-100 07/23/2016 07/23/2011, 09/01/2001, 06/26/2001 *BISPHONATE OR OTHER ACCEPTABLE MEDICATION NEEDED FOR OSTEOPOROSIS (REFER TO SMARTSET #1146) 12/06/2018 COVID-19 Vaccine (6 - Pfizer series) 07/08/2022 03/08/2022, 09/26/2021, 02/23/2021, Additional history exists DIABETES-EYE EXAM 09/28/2022 09/28/2021, , 08/25/2020, Additional history exists Albumin/Creatinine Ratio 05/16/2023 022, 10/29/2021, 09/24/2017, Additional history exists DIABETES-FOOT EXAM 05/16/2023 05/16/2022, 1 , 02/11/2020, Additional history exists HbA1c 06/06/2023 12/05/2022, 05/01, 01/17/2022, Additional history exists Depression Screening, Annual for Pts 12 and Over 11/20/2023 11/19/2022 O2 ASSESSMENT COMPLETED IN PAST YEAR FOR COPD 11/27/2023 11/26/2022 GFR 12/06/2023 12/05/2022, 08/01, 05/27/2022, Additional history exists Yearly B-12 12/06/2023 12/05/2022, 12/29, 10/18/2021, Additional history exists DTaP,Tdap,and Td Vaccines (3 - Td or Tdap) 12/09/2031 12/08/2021, 02/11/2008, 10/16/1992 Hepatitis B Completed 05/14/2002, 11/28, 10/15/2001, Additional history exists Hepatitis C Screening Completed 02/08/2013 DXA Scan Discontinued 08/02/2015, 07/02, 07/29/2011, Additional history exists Pneumococcal Vaccine: 65+ Years Completed 09/24/2017, 04/28/2015, 03/23/2009 Influenza Vaccine (FLU shot) Completed 03/07/2022, 03/28/2021, 03/28/2021, Additional history exists VITAMIN D LEVEL ONCE IN A LIFETIME-USE SMARTSET# 37234 Completed 05/27/2022, 01/18/2021, 02/10/2020, Additional history exists GARDASIL-HPV IMMUNIZATION SERIES Aged Out No longer eligible based on patient's age to complete this topic MENINGOCOCCAL (MENACTRA/MENVEO) Aged Out No longer eligible based on patient's age to complete this topic documented as of this encounter Medical Devices Implanted Type Area Political Science Instructor Device Identifier Shelf Expiration Date Model / Serial / Lot Lens 10.5 Sn60wf - [id number] Implanted:Qty: 1 on 04/27/2014 at OR [facility] Left: Eye [employer] 02/27/2019 SN60WF.105 / [id number] / Lens 12.5 Sn60wf - [id number] Implanted:Qty: 1 on 05/11/2014 at OR [facility] Right: Eye [employer] 02/27/2019 SN60WF.125 / [id number] / documented as of this encounter Visit Diagnoses Diagnosis Chronic obstructive pulmonary disease with hypoxia (HCC)- Primary documented in this encounter Advance Directives Latest [...] and were consensually agreed upon. Care Teams Case Maker Relationship Specialty Start Date End Date Andrae Hays MD [address] [place] [address] PCP - General Internal Medicine 04/10/16 documented as of this encounter
--- OUTSIDE RECORDS SUMMARY | 2023-05-22 13:04 | External Medical Summary ---
Author Name Unknown Address Unknown Organization [id number]:[facility] [address] [facility] [address] Laboratory Report Ordering Provider Test Date Status CHRISTOPHER ANDERSON 12/05/2022 08:14:23 Final Observation Date Value Abnormality Reference (Units ) Status IgG 12/05/2022 08:14:23 5767 [id number] ( mg/dL) Final IgA 12/05/2022 08:14:23 112 70-400 (mg /dL) Final IgM 12/05/2022 08:14:23 69 40-230 (mg /dL) Final Performing Location [facility] [address] [facility] [address]
--- OUTSIDE RECORDS SUMMARY | 2023-05-22 13:04 | External Medical Summary ---
Author Name Unknown Address Unknown Organization [id number][facility] [place] [address] [facility] [address] Laboratory Report Ordering Provider Test Date Status PRIYANKA GARRETT 12/06/2022 10:54:17 Final Observation Date Value Abnormality Reference (Units ) Status Color of Urine by Auto 12/06/2022 10:54:17 Light Yellow Colorless, Light Yellow, Yellow, Dark Yellow Final Clarity, Urine 12/06/2022 10:54:17 Clear Clear Final Glucose [Mass/volume] in Urine by Automated test strip 12/06/2022 10:54:17 Negative Negative (mg/dL) Final Bilirubin.total [Presence] in Urine by Automated test strip 12/06/2022 10:54:17 Negative Negative Final Ketones [Mass/volume] in Urine by Automated test strip 12/06/2022 10:54:17 Negative Negative (mg/dL) Final Specific gravity, Urine 12/06/2022 10:54:17 1.026 1.003-1.030 Final Hemoglobin [Presence] in Urine by Automated test strip 12/06/2022 10:54:17 Negative Negative Final pH, Urine 12/06/2022 10:54:17 6.0 5.0-7.5 (Units) Final Protein [Mass/volume] in Urine by Automated test strip 12/06/2022 10:54:17 Negative Negative (mg/dL) Final Urobilinogen [Mass/volume] in Urine by Automated test strip 12/06/2022 10:54:17 Normal Normal (mg/dL) Final Nitrite [Presence] in Urine by Automated test strip 12/06/2022 10:54:17 Negative Negative Final Leukocyte esterase [Presence] in Urine by Automated test strip 12/06/2022 10:54:17 Negative Negative Final RBC, Urine 12/06/2022 10:54:17 0-2 0-2 (/HPF) Final WBC, Urine 12/06/2022 10:54:17 0-2 0-2 (/HPF) Final Bacteria [#/area] in Urine sediment by Microscopy high power field 12/06/2022 10:54:17 0-25 0-25 (/HPF) Final CULTURE, URINE - [facility] 12/06/2022 10:54:17 Final Culture not indicated by uri nalysis results Performing Location [facility] [address] [facility] [address]
--- OUTSIDE RECORDS SUMMARY | 2023-05-22 13:04 | External Medical Summary ---
Author Name Unknown Address Unknown Organization K09:[facility]ATORY [place] [address] Laboratory Report Ordering Provider Test Date Status CHRISTOPHER ANDERSON 12/05/2022 08:14:23 Final Observation Date Value Abnormality Reference (Units ) Status SYNC LEUKOCYTES IN BLOOD BY AUTOMATED COUNT 12/05/2022 08:14:23 9.26 4.00-10.80 (K/uL) Final Segs 12/05/2022 08:14:23 75.1 Above high normal 40.0-75.0 (%) Final Lymphs % 12/05/2022 08:14:23 15.9 Below low normal 18.0-42.0 (%) Final Monos 12/05/2022 08:14:23 5.4 1.0-11.0 (%) Final Eosinophils 12/05/2022 08:14:23 2.8 0.0-6.0 (%) Final Basos 12/05/2022 08:14:23 0.8 0.0-2.0 (%) Final Absolute Segs 12/05/2022 08:14:23 6.96 1.80-7.70 (K/uL) Final Lymphs, absolute 12/05/2022 08:14:23 1.47 1.00-4.80 (K/ul) Final Monos, Abs 12/05/2022 08:14:23 0.50 0.00-1.10 (K/uL) Final Eos, Abs 12/05/2022 08:14:23 0.26 0.00-0.70 (K/uL) Final Basos, Abs 12/05/2022 08:14:23 0.07 0.00-0.20 (K/uL) Final Performing Location [facility] [place] [address]
--- OUTSIDE RECORDS SUMMARY | 2023-05-22 13:04 | External Medical Summary | Summary of Care ---
Author Name Unknown Organization [facility] Address [address] [place] [address] Phone [phone] Care Team Providers Care Python Developer Name Role Phone Andrae Mathew MD Primary Care Provider + Reason for Visit * Reason Comments eRx-Medication Refill Encounter Details Date Type Department Care Team Description 01/08/2023 Refill General Internal Medicine [facility] [address] [place] [address] Andrae Mathew MD [address] [place] [address] GERD (gastroesophageal reflux disease) Allergies Active Allergy Reactions Severity Noted Date [...] as of this encounter (statuses as of 01/10/2023) Medications Medication Sig Dispensed Refills Start Date [...] 08/09/2022 FLUoxetine HCl 10 MG Oral Capsule (PROzac)Indications: Major depressive disorder with single episode, in partial remission ([facility]) Take by mouth 1 Capsule in the morning. 90 Capsule 3 2 Active Verapamil HCl ER 180 MG Oral Tablet Extended Release (Isoptin SR)Indications:SVT (supraventricular tachycardia) ([facility]),HTN, goal below 140/90 Take by mouth 1 Tablet in the morning. 90 Tablet 3 2 Active Albuterol Sulfate HFA 108 (90 Base) MCG/ACT Inhalation Aerosol Solution Inhale 2 Puffs by mouth every 4 hours as needed for Cough, Shortness of Breath or Wheezing. 36 g 1 3 Active oxygen IN GASIndications:Chron ic respiratory failure with hypoxia ([facility]) 1 LPM via nasal cannula with ambulation 1 Each 0 3 Active Breo Ellipta 200-25 MCG/ACT Inhalation Aerosol Powder Breath Activated (fluticasone furoate-vilanterol)I ndications:COPD, group B, by GOLD 2017 classification ([facility]) USE 1 INHALATION BY MOUTH DAILY 180 Each 3 3 Active Ezetimibe 10 MG Oral Tablet (Zetia) Take 1 Tablet by mouth in the morning. 0 Active metFORMIN HCl 500 MG Oral Tablet (Glucophage)Indicati ons:Type 2 diabetes mellitus with hemoglobin A1c goal of less than 7.0% ([facility]) TAKE 1 TABLET BY MOUTH DAILY WITH [...] TWICE DAILY 180 Tablet 3 3 Active Famotidine 20 MG Oral Tablet (Pepcid)Indications: GERD (gastroesophageal reflux disease) TAKE 1 TABLET BY MOUTH TWICE DAILY 180 Tablet 3 2 023 Discontinued documented as of this encounter (statuses as of 01/10/2023) Active Problems Problem Noted Date Hidradenitis suppurativa [...] [facility] Type 2 diabetes mellitus with hemoglobin A1c goal of less than 7.0% 06/07/2009 Overview: ICD-10 update of inactive term Vitamin D deficiency 05/25/2009 Primary localized osteoarthrosis, lower leg 03/23/2009 Osteoporosis 07/14/2002 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 Overview: [place] 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 Irritable bowel syndrome Chronic sinusitis MASSIMO on CPAP Overview: CPAP 7 cwp 3 LPM AHP documented as of this encounter (statuses as of 01/10/2023) Resolved Problems Problem Noted Date Resolved Date [...] as of this encounter (statuses as of 01/10/2023) Immunizations Name Administration Dates Next Due COVID-19 mRNA, LNP-s, No Pre serve, 2-Dose Series ([employer]) 02/23/2021,08/26/2020,08/05/2020 COVID-19, LNP-s, No Preserve , Jasbir-sucrose, Ages 12+ (Pfizer) 09/26/2021 Covid-19, Mrna, Lnp-s, Pf, B ivalent, 30 Mcg, IM, 12 yrs and above ([employer]) 03/08/2022 H1N1 2009 Influenza, IM 07/19/2009 PPD [...] encounter Miscellaneous Notes * Telephone Encounter - Perla Morel RPh - 01/10/2023 6:03 AM EDTSigned Prescriptions: Disp Refills Famotidine 20 MG Oral Tablet (Pepcid) 180 Ta*3 Sig: TAKE 1 TABLET BY MOUTH TWICE DAILY Authorizing Provider: ANDRAE MATHEW User: PERLA MOREL * Telephone Encounter - Interface, E-Rx Ss Inbound - 01/10/2023 5:27 AM EDT Pending Prescriptions: Disp Refills Famotidine 20 MG Oral Tablet 180 Ta*3 Sig: TAKE 1 TABLET BY MOUTH TWICE DAILY documented in this encounter Plan of Treatment Upcoming Encounters Date Type Specialty Care Team Description 01/21/2023 Telemedicine Internal Medicine Ta Hamilton PA-C [address] [facility] [place] [address] 02/20/2023 Office Visit Dermatology Rita Davis MD [address] [facility] [place] [address] 03/31/2023 Office Visit Cardiology Macario Liu MD [address] [place] [address] 04/22/2023 Office Visit Ophthalmology Junior Mcnamara DO [address] [place] [address] 06/16/2023 Office Visit Internal Medicine Andrae Mathew MD [address] [facility] [place] [address] 11/07/2023 Office Visit Sleep Disorders Idania Garner CRNP [address] [place] [address] 11/27/2023 Office Visit Hematology Oncology Wilber Muniz MD [address] [facility] [place] [address] 12/08/2023 Telemedicine Pulmonary Ab Carlisle MD [address] [place] [address] Cart, Telemed Pulm Gw [address] [facility] [place] [address] Scheduled Procedures Name Priority [...] D LEVEL ONCE IN A LIFETIME-USE SMARTSET# 72063 Completed 05/27/2022, 01/18/2021, 02/10/2020, Additional history exists GARDASIL-HPV IMMUNIZATION SERIES Aged Out No longer eligible based on patient's age to complete this topic MENINGOCOCCAL (MENACTRA/MENVEO) Aged Out No longer eligible based on patient's age to complete this topic documented as of this encounter Medical Devices Implanted Type Area [employer] Device Identifier Shelf Expiration Date Model / Serial / Lot Lens 10.5 Sn60wf - [id number] Implanted:Qty: 1 on 04/27/2014 at [facility] Left: Eye [employer] 02/27/2019 SN60WF.105 / [id number] / Lens 12.5 Sn60wf - [id number] Implanted:Qty: 1 on 05/11/2014 at OR [facility] Right: Eye [employer] 02/27/2019 SN60WF.125 / [id number] / documented as of this encounter Visit Diagnoses Diagnosis GERD (gastroesophageal reflux disease) Esophageal reflux documented in this encounter Advance Directives Latest [...] and were consensually agreed upon. Care Teams Python Developer Relationship Specialty Start Date End Date Andrae Mathew MD [address] [place] [phone] PCP - General Internal Medicine 04/10/16 documented as of this encounter
--- OUTSIDE RECORDS SUMMARY | 2023-05-22 13:04 | External Medical Summary | Summary of Care ---
Author Name Unknown Organization [facility] Address [address] [place] [address] Phone [phone] Care Team Providers Care Maintenance Service Technician Name Role Phone Andrae Hays MD Primary Care Provider + Reason for Visit * Reason Comments Outpatient Testing Encounter Details Date Type Department Care Team Description 12/05/2022 [facility] [address] [place] [address] [facility] [address] [place] [address] Type 2 diabetes mellitus with hemoglobin A1c goal of less than 7.0% ([facility]); Elevated LFTs; MGUS (monoclonal gammopathy of unknown significance); HTN, goal below 140/90; Paroxysmal SVT (supraventricular tachycardia) ([facility]); Encounter for long-term (current) use of medications Allergies Active Allergy Reactions Severity Noted Date [...] as of this encounter (statuses as of 12/05/2022) Medications Medication Sig Dispensed Refills Start Date [...] Oral Tablet (Tambocor)Indications: PSVT (paroxysmal supraventricular tachycardia) ([facility]),AVNRT (AV carleen re-entry tachycardia) ([facility]) Take by mouth 1 Tablet in the [...] single episode, in partial remission ([facility]) Take by mouth 1 Capsule in the morning. 90 Capsule 3 04/16/2022 Active Verapamil HCl ER 180 MG Oral Tablet Extended Release (Isoptin SR)Indications:SVT (supraventricular tachycardia) ([facility]),HTN, goal below 140/90 Take by mouth 1 Tablet in the morning. 90 Tablet 3 04/22/2022 Active Albuterol Sulfate HFA 108 (90 Base) MCG/ACT Inhalation Aerosol Solution Inhale 2 Puffs by mouth every 4 hours as needed for Cough, Shortness of Breath or Wheezing. 36 g 1 07/18/2022 Active oxygen IN GASIndications:Chronic respiratory failure with hypoxia ([facility]) 1 LPM via nasal cannula with ambulation 1 Each 0 07/23/2022 Active Breo Ellipta 200-25 MCG/ACT Inhalation Aerosol Powder Breath Activated (fluticasone furoate-vilanterol)Ind ications:COPD, group B, by GOLD 2017 classification ([facility]) USE 1 INHALATION BY MOUTH DAILY 180 Each 3 07/25/2022 Active Ezetimibe 10 MG Oral Tablet (Zetia) Take 1 Tablet by mouth in the morning. 0 Active metFORMIN HCl 500 MG Oral Tablet (Glucophage)Indication s:Type 2 diabetes mellitus with hemoglobin A1c goal of less than 7.0% ([facility]) TAKE 1 TABLET BY MOUTH [...] as of this encounter (statuses as of 12/05/2022) Active Problems Problem Noted Date Hidradenitis suppurativa [...] gammopathy of unknown s ignificance) 08/29/1999 Overview: [place] 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 Irritable bowel syndrome Chronic sinusitis MASSIMO on CPAP Overview: CPAP 7 cwp 3 LPM AHP documented as of this encounter (statuses as of 12/05/2022) Resolved Problems Problem Noted Date Resolved Date [...] as of this encounter (statuses as of 12/05/2022) Immunizations Name Administration Dates Next Due COVID-19 mRNA, LNP-s, No Pre serve, 2-Dose Series (flatev) 02/23/2021,08/26/2020,08/05/2020 COVID-19, LNP-s, No Preserve , Jasbir-sucrose, Ages 12+ (Pfizer) 09/26/2021 Covid-19, Mrna, Lnp-s, Pf, B ivalent, 30 Mcg, IM, 12 yrs and above (flatev) 03/08/2022 H1N1 2009 Influenza, IM 07/19/2009 PPD [...] Encounters Date Type Specialty Care Team Description 12/05/2022 Office Visit General Surgery Reji Delgado MD [address] [place] [address] 12/06/2022 Telemedicine Pulmonary Ab Carlisle MD [address] [place] [address] Cart, Telemed Pulm Gw [address] [place] [address] 12/09/2022 Imaging Radiology 12/16/2022 Office Visit Gastroenterology Jeanie Healy CRNP [address] [place] [address] 02/20/2023 Office Visit Dermatology Rita Davis MD [address] [place] [address] 03/31/2023 Office Visit Cardiology Macario Liu MD [address] [place] [address] 04/22/2023 Office Visit Ophthalmology Junior Mcnamara DO [address] [place] [address] 06/16/2023 Office Visit Internal Medicine Andrae Hays MD [address] [place] [address] 11/07/2023 Office Visit Sleep Disorders Idania Garner CRNP [address] [place] [address] 11/27/2023 Office Visit Hematology Oncology Wilber Muniz MD 200 [place] [address] Pending Results Name Type Priority Associated Diagnoses Date /Time HEMOGLOBIN A1C Lab Routine Type 2 diabetes mellitus with hemoglobin A1c goal of less than 7.0% ([facility]) 12/05/2022 8:14 AM EDT COMPREHENSIVE METABOLIC PANEL Lab STAT MGUS (monoclonal gammopathy of unknown significance) 12/05/2022 8:14 AM EDT SERUM PROTEIN ELECTROPHORESIS REFLEX PROFILE Lab STAT MGUS (monoclonal gammopathy of unknown significance) 12/05/2022 8:14 AM EDT SERUM FREE LIGHT CHAINS Lab STAT MGUS (monoclonal gammopathy of unknown significance) 12/05/2022 8:14 AM EDT IMMUNOGLOBULIN QUANTITATIVE Lab STAT MGUS (monoclonal gammopathy of unknown significance) 12/05/2022 8:14 AM EDT LIPID PANEL WITH DIRECT LDL IF TG IS HIGH Lab Routine HTN, goal below 140/90 12/05/2022 8:14 AM EDT TSH WITH FREE T4 IF INDICATED Lab Routine HTN, goal below 140/90 Paroxysmal SVT (supraventricular tachycardia) (HCC) 12/05/2022 8:14 AM EDT VITAMIN B12 Lab Routine Encounter for long-term (current) use of medications 12/05/2022 8:14 AM EDT BILIRUBIN, DIRECT Lab Routine Elevated LFTs 12/05/2022 8:14 AM EDT Scheduled Procedures Name Priority Associated Diagnoses [...] 09/28/2022 09/28/2021, , 08/25/2020, Additional history exists HbA1c 11/24/2022 05/27/2022, 12/29, 07/23/2021, Additional history exists Yearly B-12 01/17/2023 01/17/2022, 09/29, 08/31/2020, Additional history exists Albumin/Creatinine Ratio 05/16/2023 022, 10/29/2021, 09/24/2017, Additional history exists DIABETES-FOOT EXAM 05/16/2023 05/16/2022, 1 , 02/11/2020, Additional history exists GFR 08/23/2023 08/23/2022, 05/01, 10/29/2021, Additional history exists Depression Screening, Annual for Pts 12 and Over 11/20/2023 11/19/2022 O2 ASSESSMENT COMPLETED IN PAST YEAR FOR COPD 11/27/2023 11/26/2022 DTaP,Tdap,and Td Vaccines (3 - Td or [...] D LEVEL ONCE IN A LIFETIME-USE SMARTSET# 53870 Completed 05/27/2022, 01/18/2021, 02/10/2020, Additional history exists GARDASIL-HPV IMMUNIZATION SERIES Aged Out No longer eligible based on patient's age to complete this topic MENINGOCOCCAL (MENACTRA/MENVEO) Aged Out No longer eligible based on patient's age to complete this topic documented as of this encounter Medical Devices Implanted Type Area Sourcing Assistant Device Identifier Shelf Expiration Date Model / Serial / Lot Lens 10.5 Sn60wf - [id number] Implanted:Qty: 1 on 04/27/2014 at OR [facility] Left: Eye [employer] 02/27/2019 SN60WF.105 / [id number] / Lens 12.5 Sn60wf - [id number] Implanted:Qty: 1 on 05/11/2014 at OR [facility] Right: Eye [employer] 02/27/2019 SN60WF.125 / [id number] / documented as of this encounter Procedures Procedure Name Priority Date/Time Associated Diagnosis Comments DIFFERENTIAL, AUTOMATED STAT 12/05/2022 8:14 AM EDT MGUS (monoclonal gammopathy of unknown significance) CBC WITH WBC DIFFERENTIAL STAT 12/05/2022 8:14 AM EDT MGUS (monoclonal gammopathy of unknown significance) CBC STAT 12/05/2022 8:14 AM EDT MGUS (monoclonal gammopathy of unknown significance) documented in this encounter Results * (ABNORMAL) DIFFERENTIAL, AUTOMATED (12/05/2022 8:14 AM EDT) [facility] WBC 9.26 4.00 - 10.80 K/uL 12/05/2022 8:21 AM EDT [facility] 56-02 Neutrophils % 75.1(H) 40.0 - 75.0 % 12/05/2022 8:21 AM EDT [facility] 56- Lymphocytes % 15.9(L) 18.0 - 42.0 % 12/05/2022 8:21 AM EDT [facility] 56- Monocytes % 5.4 1.0 - 11.0 % 12/05/2022 8:21 AM EDT [facility] 56-02 Eosinophils % 2.8 0.0 - 6.0 % 12/05/2022 8:21 AM EDT [facility] 56- Basophils % 0.8 0.0 - 2.0 % 12/05/2022 8:21 AM EDT [facility] 56- Absolute Neutrophils 6.96 1.80 - 7.70 K/uL 12/05/2022 8:21 AM EDT [facility] 56-02 Absolute Lymphocytes 1.47 1.00 - 4.80 K/ul 12/05/2022 8:21 AM EDT [facility] 56-02 Absolute Monocytes 0.50 0.00 - 1.10 K/uL 12/05/2022 8:21 AM EDT [facility] 56-02 Absolute Eosinophils 0.26 0.00 - 0.70 K/uL 12/05/2022 8:21 AM EDT [facility] 56-02 Absolute Basophils 0.07 0.00 - 0.20 K/uL 12/05/2022 8:21 AM EDT [facility] 56-02 Blood Venous blood specimen / Unknown Venipuncture / Unknown 12/05/2022 8:14 AM EDT 12/05/2022 8:15 AM EDT Angie LORA LAB BLOOD ORDER [facility] [address]- [address] [place], [place] [address] * (ABNORMAL) CBC (12/05/2022 8:14 AM EDT) [facility] WBC 9.26 4.00 - 10.80 K/uL 12/05/2022 8:21 AM EDT [facility] 56 RBC 4.20 3.85 - 5.15 M/uL 12/05/2022 8:21 AM EDT [facility] 56 HGB 11.7(L) 12.0 - 15.3 g/dL 12/05/2022 8:21 AM EDT [facility] 56 HCT 38.7 36.0 - 45.2 % 12/05/2022 8:21 AM EDT [facility] 56 MCV 92.1 81.5 - 97.5 fL 12/05/2022 8:21 AM EDT [facility] 56 MCH 27.9 27.0 - 34.0 pg 12/05/2022 8:21 AM EDT [facility] 56 MCHC 30.2 32.0 - 36.0 g/dL 12/05/2022 8:21 AM EDT [facility] 56 RDW 14.3 11.5 - 15.5 % 12/05/2022 8:21 AM EDT [facility] 56 PLT 376 140 - 400 K/uL 12/05/2022 8:21 AM EDT [facility] 56 MPV 9.3 6.6 - 11.1 fL 12/05/2022 8:21 AM T [facility] 56 Blood Venous blood specimen / Unknown Venipuncture / Unknown 12/05/2022 8:14 AM EDT 12/05/2022 8:15 AM EDT Angie LORA LAB BLOOD ORDER [facility] [address]- [address] [place] [address] documented in this encounter Visit Diagnoses Diagnosis Type 2 diabetes mellitus with hemoglobin A1c goal of less than 7.0% (HCC) Elevated LFTs Other abnormal blood chemistry MGUS (monoclonal gammopathy of unknown significance) Monoclonal paraproteinemia HTN, goal below 140/90 Unspecified essential hypertension Paroxysmal SVT (supraventricular tachycardia) (HCC) Paroxysmal supraventricular tachycardia Encounter for long-term (current) use of medications Encounter for long-term (current) use of other medications documented in this encounter Advance Directives Latest [...] and were consensually agreed upon. Care Teams Maintenance Service Technician Relationship Specialty Start Date End Date Andrae Hays MD [address] [place] [address], [place] [address] PCP - General Internal Medicine 04/10/16 documented as of this encounter
--- OUTSIDE RECORDS SUMMARY | 2023-05-22 13:04 | External Medical Summary ---
Author Name Unknown Address Unknown Organization [id number]:LABORATORY [facility] - [address] [facility] [address] Laboratory Report Ordering Provider Test Date Status DO TAMIKARYSATISH 12/05/2022 08:14:23 Final Observation Date Value Abnormality Reference (Units ) Status Triglyceride 12/05/2022 08:14:23 145 <=174 ( mg/dL) Final Triglyceride Reference Range s (mg/dL):
<150 Acceptable
150-174 Borderline high
175-499 High
>=500 Very high Cholesterol 12/05/2022 08:14:23 196 <200 (mg /dL) Final Total Cholesterol Reference Ranges (mg/dL):
<200 Desirable
200-239 Borderline high
>=240 High HDL 12/05/2022 08:14:23 61 >49 (mg/dL ) Final HDL Cholesterol Reference Ra nges (mg/dL):
>=60 High (Desirable)
<50 Low (Undesirable) For Females
<40 Low (Undesirable) For Males NON-HDL CHOLESTEROL 12/05/2022 08:14:23 135 <=159 (mg/dL) Final Non-HDL Cholesterol Referenc e Range (mg/dL):
<100 Target level for high risk ASCVD patient
<130 Optimal for general population
130-159 Near optimal for general population
160-189 Borderline High
190-219 High
>=220 Very High LDL, (calculated) 12/05/2022 08:14:23 106 <= 129 (mg/dL) Final LDL Cholesterol Reference Ra nges (mg/dL):
<70 Target level for high risk ASCVD patient
<100 Optimal for general population
100-129 Near optimal for general population
130-159 Borderline high
160-189 High
>=190 Very high Performing Location LABORATORY [facility] - [address] [facility] [address]
--- OUTSIDE RECORDS SUMMARY | 2023-05-22 13:04 | External Medical Summary ---
Author Name Unknown Address Unknown Organization [id number]:[facility] - [address] [place] [address] Laboratory Report Ordering Provider Test Date Status PRIYANKA GARRETT 12/05/2022 08:14:23 Final Observation Date Value Abnormality Reference (Units ) Status Vitamin B12 12/05/2022 08:14:23 [phone] (pg/mL) Final Performing Location LABORATORY [facility] - [address] [place] [address]
--- OUTSIDE RECORDS SUMMARY | 2023-05-22 13:04 | External Medical Summary | Summary of Care ---
Author Name Unknown Organization [facility] Address [address] [place] [address] Phone [phone] Care Team Providers Care Payroll Analyst Name Role Phone Andrae Hays MD Primary Care Provider + Reason for Visit * Reason Comments Outpatient Testing Encounter Details Date Type Department Care Team Description 12/06/2022 Laboratory Laboratory, [facility] [address] [place] [address] [facility] [address] [place] [address] Urinary frequency Allergies Active Allergy Reactions Severity Noted Date [...] (Tambocor)Indications: PSVT (paroxysmal supraventricular tachycardia) ([facility]),AVNRT (AV carleen re-entry tachycardia) ([facility]) Take by mouth 1 Tablet [...] single episode, in partial remission ([facility]) Take by mouth 1 Capsule in the morning. 90 Capsule 3 04/16/2022 Active Verapamil HCl ER 180 MG Oral Tablet Extended Release (Isoptin SR)Indications:SVT (supraventricular tachycardia) ([facility]),HTN, goal below 140/90 Take by mouth 1 Tablet in the morning. 90 Tablet 3 04/22/2022 Active Albuterol Sulfate HFA 108 (90 Base) MCG/ACT Inhalation Aerosol Solution Inhale 2 Puffs by mouth every 4 hours as needed for Cough, Shortness of Breath or Wheezing. 36 g 1 07/18/2022 Active oxygen IN GASIndications:Chronic respiratory failure with hypoxia ([facility]) 1 LPM via nasal cannula with ambulation 1 Each 0 07/23/2022 Active Breo Ellipta 200-25 MCG/ACT Inhalation Aerosol Powder Breath Activated (fluticasone furoate-vilanterol)Ind ications:COPD, group B, by GOLD 2017 classification ([facility]) USE 1 INHALATION BY MOUTH DAILY 180 Each 3 07/25/2022 Active Ezetimibe 10 MG Oral Tablet (Zetia) Take 1 Tablet by mouth in the morning. 0 Active metFORMIN HCl 500 MG Oral Tablet (Glucophage)Indication s:Type 2 diabetes mellitus with hemoglobin A1c goal of less than 7.0% ([facility]) TAKE 1 TABLET BY MOUTH [...] replacement status 03/28/2010 Overview: left Dr Doherty, [facility] Type 2 diabetes mellitus with hemoglobin A1c goal of less than 7.0% 06/07/2009 Overview: ICD-10 update of inactive term Vitamin D deficiency 05/25/2009 Primary localized osteoarthrosis, lower leg 03/23/2009 Osteoporosis 07/14/2002 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 Overview: [place] IgG monoclonol spike monoclonal gammopathy of undetermined [...] mRNA, LNP-s, No Pre serve, 2-Dose Series ([place]) 02/23/2021,08/26/2020,08/05/2020 COVID-19, LNP-s, No Preserve , Jasbir-sucrose, Ages 12+ (Pfizer) 09/26/2021 Covid-19, Mrna, Lnp-s, Pf, B ivalent, 30 Mcg, IM, 12 yrs and above ([place]) 03/08/2022 H1N1 2009 Influenza, IM 07/19/2009 PPD [...] Encounters Date Type Specialty Care Team Description 12/06/2022 Telemedicine Pulmonary Ab Carlisle MD [address] [place] [address] Cart, Telemed Pulm Gw [address] [place] [address] Arrived 12/09/2022 Imaging Radiology 12/12/2022 Office Visit General Surgery Reji Delgado MD [address] [place] [address] 12/16/2022 Office Visit Gastroenterology Jeanie Healy CRNP [address] [place] [address] 02/20/2023 Office Visit Dermatology Rita Davis MD [address] [place] [address] 03/31/2023 Office Visit Cardiology Macario Liu MD [address] [place] [address] 04/22/2023 Office Visit Ophthalmology Junior Mcnamara DO [address] [place] [address] 06/16/2023 Office Visit Internal Medicine Andrae Hays MD [address] [place] [address] 11/07/2023 Office Visit Sleep Disorders Idania Garner CRNP [address] [place] [address] 11/27/2023 Office Visit Hematology Oncology Wilber Muniz MD [address] [place] [address] Pending Results Name Type Priority Associated Diagnoses Date /Time URINALYSIS, REFLEX TO CULTURE (NOT FOR NEUTROPENIC PATIENTS) Lab Routine Urinary frequency 12/06/2022 10:54 AM EDT URINALYSIS, REFLEX TO CULTURE (CUP ONLY) Lab Routine Urinary frequency 12/06/2022 10:54 AM EDT URINALYSIS, REFLEX TO CULTURE Lab Routine Urinary frequency 12/06/2022 10:54 AM EDT Scheduled Procedures Name Priority Associated [...] D LEVEL ONCE IN A LIFETIME-USE SMARTSET# 83049 Completed 05/27/2022, 01/18/2021, 02/10/2020, Additional history exists GARDASIL-HPV IMMUNIZATION SERIES Aged Out No longer eligible based on patient's age to complete this topic MENINGOCOCCAL (MENACTRA/MENVEO) Aged Out No longer eligible based on patient's age to complete this topic documented as of this encounter Medical Devices Implanted Type Area Fabric Worker Foreman Device Identifier Shelf Expiration Date Model / Serial / Lot Lens 10.5 Sn60wf - [id number] Implanted:Qty: 1 on 04/27/2014 at OR [facility] Left: Eye [employer] 02/27/2019 SN60WF.105 / [id number] / Lens 12.5 Sn60wf - [id number] Implanted:Qty: 1 on 05/11/2014 at OR [facility] Right: Eye [employer] 02/27/2019 SN60WF.125 / [id number] / documented as of this encounter Visit [...] and were consensually agreed upon. Care Teams Payroll Analyst Relationship Specialty Start Date End Date Andrae Hays MD [address] [place] [address] [place] [address] PCP - General Internal Medicine 04/10/16 documented as of this encounter
--- OUTSIDE RECORDS SUMMARY | 2023-05-22 13:04 | External Medical Summary ---
Author Name Unknown Address Unknown Organization [id number]:[facility] [place] [address] [place] [address] Laboratory Report Ordering Provider Test Date Status PRIYANKA GARRETT 12/05/2022 08:14:23 Final Observation Date Value Abnormality Reference (Units ) Status TSH 12/05/2022 08:14:23 0.68 0.27-4.20 (uIU/mL) Final Performing Location LABORATORY [facility] - [address] [place] [address]
--- OUTSIDE RECORDS SUMMARY | 2023-05-22 13:04 | External Medical Summary ---
Author Name Unknown Address Unknown Organization [id number]:[facility] [place] [address] Laboratory Report Ordering Provider Test Date Status CHRISTOPHER ANDERSON 12/05/2022 08:14:23 Final Observation Date Value Abnormality Reference (Units ) Status WBC, Total 12/05/2022 08:14:23 9.26 4.00-10.8 0 (K/uL) Final RBC 12/05/2022 08:14:23 4.20 3.85-5.15 (M/uL) Final Hemoglobin 12/05/2022 08:14:23 11.7 Below low normal 12 .0-15.3 (g/dL) Final HCT 12/05/2022 08:14:23 38.7 36.0-45.2 (%) Final MCV 12/05/2022 08:14:23 92.1 81.5-97.5 (fL) Final MCH 12/05/2022 08:14:23 27.9 27.0-34.0 (pg) Final MCHC 12/05/2022 08:14:23 30.2 32.0-36.0 (g/dL) Final RDW 12/05/2022 08:14:23 14.3 11.5-15.5 (%) Final Platelets 12/05/2022 08:14:23 376 140-400 (K /uL) Final MPV 12/05/2022 08:14:23 9.3 6.6-11.1 ( fL) Final Performing Location [facility] [place] [address]
--- OUTSIDE RECORDS SUMMARY | 2023-05-22 13:04 | External Medical Summary ---
Author Name Unknown Address Unknown Organization K01:LABORATORY [facility] - [facility] [address] [facility] [address] Laboratory Report Ordering Provider Test Date Status CHRISTOPHER ANDERSON 12/05/2022 08:14:23 Final Observation Date Value Abnormality Reference (Units) Status Protein 12/05/2022 08:14:23 7.0 6.0-8.3 (g/dL) Final Albumin/Protein.total [Pure mass fraction] in Serum or Plasma by Electrophoresis 12/05/2022 08:14:23 3.36 3.30-4.40 (g/dL) Final Alpha 1 globulin/Protein.tota l [Pure mass fraction] in Serum or Plasma by Electrophoresis 12/05/2022 08:14:23 0.26 0.10-0.30 (g/dL) Final Alpha 2 globulin/Protein.tota l [Pure mass fraction] in Serum or Plasma by Electrophoresis 12/05/2022 08:14:23 1.02 Above high normal 0.60-1.00 (g/dL) Final Beta globulin/Protein.tota l [Pure mass fraction] in Serum or Plasma by Electrophoresis 12/05/2022 08:14:23 1.27 0.80-1.30 (g/dL) Final Gamma globulin/Protein.tota l [Pure mass fraction] in Serum or Plasma by Electrophoresis 12/05/2022 08:14:23 1.09 0.70-1.70 (g/dL) Final Monoclonal protein 12/05/2022 08:14:23 0.61 (g/dL) Final Protein Fractions [Interpretation] in Serum or Plasma by Electrophoresis Narrative 12/05/2022 08:14:23 A paraprotein is present that has been previously identified as a monoclonal IgG kappa. Final Performing Location LABORATORY [facility] - [address] [facility] [address]
--- OUTSIDE RECORDS SUMMARY | 2023-05-22 13:04 | External Medical Summary ---
Author Name Unknown Address Unknown Organization K09:[facility] [place] [address] Laboratory Report Ordering Provider Test Date Status PRIYANKA GARRETT 12/05/2022 08:14:23 Final Observation Date Value Abnormality Reference (Units ) Status Bilirubin, Direct 12/05/2022 08:14:23 <0.2 0. 0-0.3 (mg/dL) Final Performing Location [facility] [place] [address]
--- OUTSIDE RECORDS SUMMARY | 2023-05-22 13:04 | External Medical Summary | Summary of Care ---
Author Name Unknown Organization [facility] Address [address] [place] [address] Phone [phone] Care Team Providers Care Project Safety Manager Name Role Phone Andrae Hays MD Primary Care Provider + Encounter Details Date Type Department Care Team Description 01/21/2023 Telemedicine General Internal Medicine [facility] 200 [facility] [place] [id number] Ta Hamilton PA-C 200 [place] [address] Type 2 diabetes mellitus with hemoglobin A1c goal of less than 7.0% ([facility])*; Diabetic polyneuropathy associated with type 2 diabetes mellitus ([facility]); Moderate persistent asthma without complication; Bronchiectasis without complication ([facility]); Chronic obstructive pulmonary disease with hypoxia ([facility]); MASSIMO on CPAP; Obesity, morbid (more than 100 lbs over ideal weight or BMI > 40) ([facility]); Primary osteoarthritis of one knee, right; Status [...] IN GASIndications:Chroni c respiratory failure with hypoxia ([facility]) 1 LPM via nasal cannula with ambulation 1 Each 0 3 Active Breo Ellipta 200-25 MCG/ACT Inhalation Aerosol Powder Breath Activated (fluticasone furoate-vilanterol)In dications:COPD, group B, by GOLD 2017 classification ([facility] [...] replacement status 03/28/2010 Overview: left Dr Doherty, [facility] Type 2 diabetes mellitus with hemoglobin A1c goal of less than 7.0% 06/07/2009 Overview: ICD-10 update of inactive term Vitamin D deficiency 05/25/2009 Primary localized osteoarthrosis, lower leg 03/23/2009 Osteoporosis 07/14/2002 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 Overview: [facility] IgG monoclonol spike monoclonal gammopathy of undetermined [...] mRNA, LNP-s, No Pre serve, 2-Dose Series (VILOOP) 02/23/2021,08/26/2020,08/05/2020 COVID-19, LNP-s, No Preserve , Jasbir-sucrose, [...] hospital or clinic location. After connecting through televideo, patient was verified with two unique identifiers. Patient (or authorized legal b2b sales representative) wasthen informed that this was a Telemedicine visit and being conducted confidentially over secure lines. Methods to assure confidentiality were taken. Patient acknowledged consent and understanding of privacy and security of the Telemedicine visit. The [...] of less than 7.0% ([facility]) E11.9 Knee joint replacement status Z96.659 Allergic [...] Z86.69 History of epistaxis Z87.898 Diabetic polyneuropathy ([facility]) E11.42 DISH (diffuse idiopathic skeletal hyperostosis) M48.10 RLS (restless legs syndrome) G25.81 Major depressive disorder with single episode, in partial remission ([facility]) F32.4 Paroxysmal SVT (supraventricular tachycardia) ([facility]) I47.1 Statin intolerance Z78.9 Bronchiectasis without complication ([facility]) J47.9 History of tobacco abuse Z87.891 At risk for aspiration Z91.89 Dysphagia R13.10 Pulmonary nodules R91.8 COPD, group B, by GOLD 2017 classification ([facility]) J44.9 S/P ablation operation for arrhythmia Z98.890, Z86.79 Angiomyolipoma of right kidney D17.71 AVNRT (AV carleen re-entry tachycardia) ([facility]) I47.1 Obesity, morbid (more than 100 lbs over ideal weight or BMI > 40) ([facility]) E66.01 Lung nodule R91.1 S/P RF ablation operation for arrhythmia Z98.890, Z86.79 Chronic obstructive pulmonary disease with hypoxia ([facility]) J44.9, R09.02 Hidradenitis suppurativa L73.2 Current Outpatient [...] Elastic Bandages & Supports (MEDICAL COMPRESSION STOCKINGS) MIS Wear compression stockingsduring the day. Take off [...] Negative Ketone, Urine Negative Negative mg/dL Specific [place], Urine 1.026 1.003 - 1.030 Blood, Urine [...] of less than 7.0% ([facility]) (Primary) - Contour Next Test In Vitro Strip (Glucose Blood); Test twice daily as directed. Dx E11.9. Diabetic polyneuropathy associated with type 2 diabetes mellitus ([facility]) - DURABLE MEDICAL EQUIPMENT Moderate persistent asthma without complication Bronchiectasis without complication ([facility]) Chronic obstructive pulmonary disease with hypoxia ([facility]) - DURABLE MEDICAL EQUIPMENT Compliant with Breo and albuterol. Oxygen at night and exertion. Following with pulm MASSIMO on CPAP Obesity, morbid (more than 100 lbs over ideal weight or BMI > 40) ([facility]) Primary osteoarthritis of one knee, right - [...] Office Visit Dermatology Rita Davis MD 200 [place] [address] 03/31/2023 Office Visit Cardiology Macario Liu MD [address] [place] [address] 04/22/2023 Office Visit Ophthalmology Junior Mcnamara DO [address] [place] [address] 06/16/2023 Office Visit Internal Medicine Andrae Hays MD [address] [place] [address] 11/07/2023 Office Visit Sleep Disorders Idania Garner CRNP [address] [place] [address] 11/27/2023 Office Visit Hematology Oncology Wilber Muniz MD 200 [place] [address] 12/08/2023 Telemedicine Pulmonary Ab Carlisle MD [address] [place] [address] Cart, Telemed Pulm Gw [address] [place] [address] Scheduled Procedures Name Priority Associated Diagnoses Date/Ti [...] D LEVEL ONCE IN A LIFETIME-USE SMARTSET# [id number] Completed 05/27/2022, 01/18/2021, 02/10/2020, Additional history exists GARDASIL-HPV IMMUNIZATION SERIES Aged Out No longer eligible based on patient's age to complete this topic MENINGOCOCCAL (MENACTRA/MENVEO) Aged Out No longer eligible based on patient's age to complete this topic documented as of this encounter Medical Devices Implanted Type Area Porcelain Enamel Sprayer Device Identifier Shelf Expiration Date Model / Serial / Lot Lens 10.5 Sn60wf - [id number] Implanted:Qty: 1 on 04/27/2014 at OR [facility] Left: Eye [employer] 02/27/2019 SN60WF.105 / [id number] / Lens 12.5 Sn60wf - [id number] Implanted:Qty: 1 on 05/11/2014 at OR [facility] Right: Eye [employer] 02/27/2019 SN60WF.125 / [id number] / documented as of this encounter Visit [...] and were consensually agreed upon. Care Teams Project Safety Manager Relationship Specialty Start Date End Date Andrae Hays MD 200 [facility] [place] [address] PCP - General Internal Medicine 04/10/16 documented as of this encounter
--- OUTSIDE RECORDS SUMMARY | 2023-05-22 13:05 | External Medical Summary | Summary of Care ---
Author Name Unknown Organization [facility] Address [address] [place] [address] Phone [phone] Care Team Providers Care Kiln Setter Name Role Phone Andrae Hays MD Primary Care Provider + Reason for Visit * Reason Onset Date Comments Referral 11/20/2022 Encounter Details Date Type Department Care Team Description 11/20/2022 Telephone General Surgery, [place] [address] [place] [address] Services, [facility] [address] [place] [address] Referral Allergies Active Allergy Reactions Severity Noted Date [...] as of this encounter (statuses as of 11/27/2022) Medications Medication Sig Dispensed Refills Start Date [...] External Ointment (Bactroban) NEEDED 0 2 Active Flecainide Acetate 50 MG Oral Tablet (Tambocor)Indications :PSVT (paroxysmal supraventricular tachycardia) ([facility]),AVNRT (AV carleen re-entry tachycardia) ([facility]) Take by mouth 1 Tablet in the morning AND 1 Tablet before bedtime. 180 Tablet 3 2 Active Spironolactone 25 MG Oral Tablet (Aldactone) TAKE 1 TABLET BY MOUTH DAILY 90 Tablet 3 2 Active Additional Information Patient taking differently: 12.5 mg Oral Daily(AM), Reported on 08/09/2022 Famotidine 20 MG Oral Tablet (Pepcid)Indications:G ERD (gastroesophageal reflux disease) TAKE 1 TABLET BY MOUTH TWICE DAILY 180 Tablet 3 2 Active FLUoxetine HCl 10 MG Oral Capsule (PROzac)Indications:M ajor depressive disorder with single episode, in partial remission ([facility]) Take by mouth 1 Capsule in the morning. 90 Capsule 3 2 Active Verapamil HCl ER 180 MG Oral Tablet Extended Release (Isoptin SR)Indications:SVT (supraventricular tachycardia) ([facility]),HTN, goal below 140/90 Take by mouth 1 Tablet in the morning. 90 Tablet 3 2 Active Albuterol Sulfate HFA 108 (90 Base) MCG/ACT Inhalation Aerosol Solution Inhale 2 Puffs by mouth every 4 hours as needed for Cough, Shortness of Breath or Wheezing. 36 g 1 3 Active oxygen IN GASIndications:Chroni c respiratory failure with hypoxia ([facility]) 1 LPM via nasal cannula with ambulation 1 Each 0 3 Active Breo Ellipta 200-25 MCG/ACT Inhalation Aerosol Powder Breath Activated (fluticasone furoate-vilanterol)In dications:COPD, group B, by GOLD 2017 classification ([facility]) USE 1 INHALATION BY MOUTH DAILY 180 Each 3 3 Active Ezetimibe 10 MG Oral Tablet (Zetia) Take 1 Tablet by mouth in the morning. 0 Active metFORMIN HCl 500 MG Oral Tablet (Glucophage)Indicatio ns:Type 2 diabetes mellitus with hemoglobin A1c goal of less than 7.0% ([facility]) TAKE 1 TABLET BY MOUTH DAILY WITH [...] Wheezing or Shortness of Breath. 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 Irritable bowel syndrome Chronic sinusitis MASSIMO on CPAP Overview: CPAP 7 cwp 3 LPM AHP documented as of this encounter (statuses as of 11/27/2022) Resolved Problems Problem Noted Date Resolved Date [...] as of this encounter (statuses as of 11/27/2022) Immunizations Name Administration Dates Next Due COVID-19 mRNA, LNP-s, No Pre serve, 2-Dose Series (Strat[employer]) 02/23/2021,08/26/2020,08/05/2020 COVID-19, LNP-s, No Preserve , Jasbir-sucrose, Ages 12+ (Pfizer) 09/26/2021 Covid-19, Mrna, Lnp-s, Pf, B ivalent, 30 Mcg, IM, 12 yrs and above (Strat[employer]) 03/08/2022 H1N1 2009 Influenza, IM 07/19/2009 Hepatitis [...] encounter Miscellaneous Notes * Telephone Encounter - Radha John LPN - 11/27/2022 12:57 PM EDT Clinical prerequisites remain unmet, PCP unwilling to order despite referral guidelines. Contacting GS provider - she has not established for her breast condition but is seeing Dr. Delgado for a colorectal condition, will inquire whether he would be willing to see the patient without a pre-referral workup. Kelley John LPN Intake Nurse Navigator General Surgery and Breast Clinic [facility] * Telephone Encounter - Andrae Hays MD - 11/20/2022 8:35 AM EDT Kelley, patient declined mammogram as too painful when I asked, wanted to see breast clinic for further guidance, thank you * Telephone Encounter - Radha John LPN - 11/20/2022 7:22 AM EDT Referral from: Dr. Long Consult: Breast Surgery For: chronic breast pain Referral received as detailed above. Last year's screening imaging does not reference this condition. Noted that she sees Dr. Delgado for a colorectal condition. Breast referral was pursued in the past,but imaging is now almost a year old and will need to be repeated. Prerequisite imaging has not been ordered/completed. Will request from referring provider. Kelley John LPN Intake Nurse Navigator General Surgery and Breast Clinic [facility] Breast Imaging: Short-Term Follow-Up & Biopsy recommendation BIRADS 4 & 5 1. Patient should be referred and scheduled to breast imaging to have follow-up and/or procedure completed. a. Outside breast imaging studies (mammography, breast ultrasound, breast MRI) and reports from [facility] 3 years are required prior to scheduled breast imaging appointment. i. After diagnosis, if surgical intervention is recommended, patients should then be referred to breast surgery by referring provider. 2. If breast imaging is unable to obtain a needle biopsy and patient needs surgical intervention the patient will then be referred to breast surgery. Breast Surgery Referral 1. Patients from outside the [facility] [place] that has completed breast imaging and/or diagnosis must have a complete outside interpretation of their images by radiology - breast imaging before being seen in breast surgery. a. IOF order is entered by referring provider in preparation for breast surgery visit i. Breast imaging will need most recent imaging study including 3 years of prior imaging including mammograms, breast ultrasound, breast MRI, breast pathology and imaging reports. If patient has not had consecutive imaging than 5 years of prior imaging is required. ii. Second opinion must be within one year of the initial breast imaging exam. If over a year repeat imaging will be needed. iii. If recent imaging has poor image quality at the discretion of the radiologist, the IOF will becancelled, and patient will need repeat imaging. documented in this encounter Plan of Treatment Upcoming Encounters Date Type Specialty Care Team Description 11/28/2022 Imaging Radiology 12/05/2022 Office Visit General Surgery Reji Delgado MD [address] [place] [address] 12/06/2022 Telemedicine Pulmonary Ab Carlisle MD [address] [place] [address] Alva Ju[facility]re[facility] Pulm Gw [address] [place] [address] 12/09/2022 Imaging Radiology 12/16/2022 Office Visit Gastroenterology Jeanie Healy CRNP [address] [place] [address] 02/20/2023 Office Visit Dermatology Rita Davis MD 200 [place] [address] 03/31/2023 Office Visit Cardiology Macario Liu MD [address] [place] [address] 04/22/2023 Office Visit Ophthalmology Junior Mcnamara DO [address] [place] [address] 06/16/2023 Office Visit Internal Medicine Andrae Hays MD 200 [place] [address] 11/07/2023 Office Visit Sleep Disorders Idania Garner CRNP [address] [place] [address] 11/27/2023 Office Visit Hematology Oncology Wilber Muniz MD 200 [facility] [place] [address] Scheduled Procedures Name Priority Associated Diagnoses Date/Ti [...] D LEVEL ONCE IN A LIFETIME-USE SMARTSET# 98775 Completed 05/27/2022, 01/18/2021, 02/10/2020, Additional history exists GARDASIL-HPV IMMUNIZATION SERIES Aged Out No longer eligible based on patient's age to complete this topic MENINGOCOCCAL (MENACTRA/MENVEO) Aged Out No longer eligible based on patient's age to complete this topic documented as of this encounter Medical Devices Implanted Type Area Title Coordinator Device Identifier Shelf Expiration Date Model / Serial / Lot Lens 10.5 Sn60wf - [id number] Implanted:Qty: 1 on 04/27/2014 at OR [facility] Left: Eye [employer] 02/27/2019 SN60WF.105 / [id number] / Lens 12.5 Sn60wf - [id number] Implanted:Qty: 1 on 05/11/2014 at OR [facility] Right: Eye [employer] 02/27/2019 SN60WF.125 / [id number] / documented as of this encounter Advance [...] and were consensually agreed upon. Care Teams Kiln Setter Relationship Specialty Start Date End Date Andrae Hays MD [address] [place] [address], [place] [address] PCP - General Internal Medicine 04/10/16 documented as of this encounter
--- OUTSIDE RECORDS SUMMARY | 2023-05-22 13:05 | External Medical Summary | Summary of Care ---
Author Name Unknown Organization [facility] Address [address] [place] [address] Phone [phone] Care Team Providers Care Dispatcher Chief Oil Name Role Phone Andrae Hays MD Primary Care Provider + Reason for Visit * Reason Onset Date Comments FYI 11/26/2022 Encounter Details Date Type Department Care Team Description 11/26/2022 Telephone General Internal Medicine [facility] 200 [place] [address] Andrae Hays MD [address] [facility] [place] [address] FYI Allergies Active Allergy Reactions Severity Noted Date [...] as of this encounter (statuses as of 11/26/2022) Medications Medication Sig Dispensed Refills Start Date [...] Oral Tablet (Tambocor)Indications: PSVT (paroxysmal supraventricular tachycardia) ([facility]),AVNRT (AV carleen re-entry tachycardia) ([facility]) Take by mouth 1 Tablet in [...] oxygen IN GASIndications:Chronic respiratory failure with hypoxia ([facility]) 1 LPM via nasal cannula with ambulation 1 Each 0 07/23/2022 Active Breo Ellipta 200-25 MCG/ACT Inhalation Aerosol Powder Breath Activated (fluticasone furoate-vilanterol)Ind ications:COPD, group B, by GOLD 2017 classification ([facility] [...] as of this encounter (statuses as of 11/26/2022) Active Problems Problem Noted Date Hidradenitis suppurativa [...] replacement status 03/28/2010 Overview: left Dr Doherty, [facility] Type 2 diabetes mellitus with hemoglobin A1c goal of less than 7.0% 06/07/2009 Overview: ICD-10 update of inactive term Vitamin D deficiency 05/25/2009 Primary localized osteoarthrosis, lower leg 03/23/2009 Osteoporosis 07/14/2002 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 Overview: [place] 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 Irritable bowel syndrome Chronic sinusitis MASSIMO on CPAP Overview: CPAP 7 cwp 3 LPM AHP documented as of this encounter (statuses as of 11/26/2022) Resolved Problems Problem Noted Date Resolved Date [...] as of this encounter (statuses as of 11/26/2022) Immunizations Name Administration Dates Next Due COVID-19 mRNA, LNP-s, No Pre serve, 2-Dose Series ([employer]) 02/23/2021,08/26/2020,08/05/2020 COVID-19, LNP-s, No Preserve , Jasbir-sucrose, Ages 12+ (Pfizer) 09/26/2021 Covid-19, Mrna, Lnp-s, Pf, B ivalent Booster, 30 Mcg, IM, 12 yrs and above ([employer]) 03/08/2022 H1N1 2009 Influenza, IM 07/19/2009 PPD [...] Miscellaneous Notes * Telephone Encounter - MASSIMO Ross - 11/26/2022 9:00 AM EDT Wanted to know about active blood work in chart documented in this encounter Plan of Treatment Upcoming Encounters Date Type Specialty Care Team Description 11/26/2022 Office Visit Hematology Oncology Wilber Muniz MD [address] [place] [address] 11/27/2022 Office Visit Dermatology Nadeen Javier MD [address] [place] [address] 11/28/2022 Imaging Radiology 12/05/2022 Office Visit General Surgery Reji Delgado MD [address] [place] [address] 12/06/2022 Telemedicine Pulmonary Ab Carlisle MD [address] [place] [address] Cart, Telemed Pulm Gw [address] [place] [place] [address] 12/09/2022 Imaging Radiology 12/16/2022 Office Visit Gastroenterology Jeanie Healy CRNP [address] [place] [address] 12/19/2022 PulmDiagnostic Pulmonary Function [place], [facility] [address] [facility] [place] [address] 02/20/2023 Office Visit Dermatology Rita Davis MD 200 [place] [address] 03/31/2023 Office Visit Cardiology Macario Liu MD [address] [place] [address] 04/22/2023 Office Visit Ophthalmology Junior Mcnamara DO [address] [place] [address] 06/16/2023 Office Visit Internal Medicine Andrae Hays MD 200 [place] [address] 11/07/2023 Office Visit Sleep Disorders Idania Garner CRNP [address] [place] [address] Scheduled Procedures Name Priority Associated Diagnoses Date/Ti [...] ASSESSMENT COMPLETED IN PAST YEAR FOR COPD 11/20/2023 11/19/2022 DTaP,Tdap,and Td Vaccines (3 - Td or [...] D LEVEL ONCE IN A LIFETIME-USE SMARTSET# 11375 Completed 05/27/2022, 01/18/2021, 02/10/2020, Additional history exists GARDASIL-HPV IMMUNIZATION SERIES Aged Out No longer eligible based on patient's age to complete this topic MENINGOCOCCAL (MENACTRA/MENVEO) Aged Out No longer eligible based on patient's age to complete this topic documented as of this encounter Medical Devices Implanted Type Area [employer] Media Program Director Device Identifier Shelf Expiration Date Model / Serial / Lot Lens 10.5 Sn60wf - [id number] Implanted:Qty: 1 on 04/27/2014 at OR [facility] Left: Eye [employer] 02/27/2019 SN60WF.105 / [id number] / Lens 12.5 Sn60wf - [id number] Implanted:Qty: 1 on 05/11/2014 at OR [facility] Right: Eye [employer] 02/27/2019 SN60WF.125 / [id number] / documented as of this encounter Advance [...] and were consensually agreed upon. Care Teams Dispatcher Chief Oil Relationship Specialty Start Date End Date Andrae Hays MD 200 [place] [address] PCP - General Internal Medicine 04/10/16 documented as of this encounter
--- OUTSIDE RECORDS SUMMARY | 2023-05-22 13:05 | External Medical Summary | Summary of Care ---
Author Name Unknown Organization [facility] Address [address] [place] [address] Phone [phone] Care Team Providers Care Transport Technician Name Role Phone Andrae Hays MD Primary Care Provider + Reason for Visit * Reason Comments Follow Up Encounter Details Date Type Department Care Team Description 11/26/2022 Office Visit Hematology/Oncology [facility] [address] [place] [address] Wilber Muniz MD [address] [place] [address] MGUS (monoclonal gammopathy of unknown significance)* Allergies Active Allergy Reactions Severity Noted Date [...] (Tambocor)Indications: PSVT (paroxysmal supraventricular tachycardia) ([facility]),AVNRT (AV carleen re-entry tachycardia) ([facility]) Take by mouth 1 Tablet in the [...] disorder with single episode, in partial remission ([facility]) Take by mouth 1 Capsule in the morning. 90 Capsule 3 04/16/2022 Active Verapamil HCl ER 180 MG Oral Tablet Extended Release (Isoptin SR)Indications:SVT (supraventricular tachycardia) ([facility]),HTN, goal below 140/90 Take by mouth 1 Tablet in the morning. 90 Tablet 3 04/22/2022 Active Albuterol Sulfate HFA 108 (90 Base) MCG/ACT Inhalation Aerosol Solution Inhale 2 Puffs by mouth every 4 hours as needed for Cough, Shortness of Breath or Wheezing. 36 g 1 07/18/2022 Active oxygen IN GASIndications:Chronic respiratory failure with hypoxia ([facility]) 1 LPM via nasal cannula with ambulation 1 Each 0 07/23/2022 Active Breo Ellipta 200-25 MCG/ACT Inhalation Aerosol Powder Breath Activated (fluticasone furoate-vilanterol)Ind ications:COPD, group B, by GOLD 2017 classification ([facility]) USE 1 INHALATION BY MOUTH DAILY 180 Each 3 07/25/2022 Active Ezetimibe 10 MG Oral Tablet (Zetia) Take 1 Tablet by mouth in the morning. 0 Active metFORMIN HCl 500 MG Oral Tablet (Glucophage)Indication s:Type 2 diabetes mellitus with hemoglobin A1c goal of less than 7.0% ([facility]) TAKE 1 TABLET BY MOUTH DAILY WITH [...] replacement status 03/28/2010 Overview: left Dr Doherty, [facility] Type 2 diabetes mellitus with hemoglobin A1c goal of less than 7.0% 06/07/2009 Overview: ICD-10 update of inactive term Vitamin D deficiency 05/25/2009 Primary localized osteoarthrosis, lower leg 03/23/2009 Osteoporosis 07/14/2002 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 Overview: Crewe IgG monoclonol spike monoclonal gammopathy of undetermined [...] mRNA, LNP-s, No Pre serve, 2-Dose Series (Ometria) 02/23/2021,08/26/2020,08/05/2020 COVID-19, LNP-s, No Preserve , Jasbir-sucrose, Ages 12+ (Pfizer) 09/26/2021 Covid-19, Mrna, Lnp-s, Pf, B ivalent Booster, 30 Mcg, IM, 12 yrs and above ([employer]metria) 03/08/2022 H1N1 2009 Influenza, IM 07/19/2009 PPD [...] Sign Reading Time Taken Comments Blood Pressure 119/74 11/26/2022 1:00 PM EDT Pulse 85 11/26/2022 1:00 PM EDT Temperature - - Respiratory Rate 16 11/26/2022 1:00 PM EDT Oxygen Saturation 90% 11/26/2022 1:0 0 PM EDT on own home oxygen Inhaled Oxygen Concentration - - Weight 105.5 kg (232 lb 8 oz) 11/26/2022 1:00 PM EDT Height - - Body Mass Index 41.85 11/19/2022 12:51 PM EDT documented in this encounter Functional Status [...] as of this encounter Progress Notes * Wilber Muniz MD - 11/26/2022 1:15 PM EDT Hematology/Oncology Outpatient Clinic note [address] [place] [facility] [place] [address] Name: Marycruz Cano Date: 07/24/2022 CHIEF COMPLAINT: Marycruz Cano is a 77 year old female here today for f/u visit today. HEMATOLOGY/ONCOLOGY DIAGNOSIS: MGUS-IgG kappa, diagnosed at least since 1999 (patient reports ) CURRENT TREATMENT: Observation DIAGNOSTIC WORKUP: Component Latest Ref Rng & Units 10/04/1999 4:35 PM BJP SPECIMEN SOURCE URINE URINE TOTAL PROTEIN mg/dL 6 URINE ALBUMIN PRESENT BJP INTERP BENCE-KHAN PROTEIN IS NOT DETECTED IN THIS SPECIMEN. Component Latest Ref Rng & Units 09/12/1999 2:02 PM PROTEIN 6 - 8 g/dL 8.3 (H) ALBUMIN 58.8 - 69.6 % 63.4 ALPHA 1 1.8 - 3.8 % 3.9 (H) ALPHA 2 3.7 - 13.1 % 13.9 (H) BETA 8.9 - 13.6 % 9.8 GAMMA 8.4 - 18.3 % 9.0 EPG INTERP A PARAPROTEIN IS PRESENT. Component Latest Ref Rng & Units 09/12/1999 2:02 PM IEP COMMENT A MONOCLONAL IGG KAPPA GAMMOPATHY IS PRESENT. Component Latest Ref Rng & Units 09/12/1999 IGG 716 - 1554 mg/dL 772 IGA 66 - 344 mg/dL 78 IGM 46 - 208 mg/dL 99 Component Latest Ref Rng & Units 10/04/1999 [id number] <2.0 mg/L 1.3 PATHOLOGY: No bone marrow done. OTHER IMPORTANT HISTORY: T2DM with neuropathy Dyslipidemia COPD MASSIMO HTN IBS Diverticula GERD DISH Recurrent SVT. S/P ablation in December 2018. She is on baby aspirin. HISTORY OF PRESENT ILLNESS: She has come to the clinic for the follow-up, she came to clinic by herself. Ambulating with the help of the cane, she also using nasal current supplemental oxygen while walking around, also using CPAP during the nighttime, overall she is feeling well, no nausea no vomiting, no new bone pain. No bleeding from the sites, current weight 232 lb. No infections, no recent hospitalization. 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 ([facility]) 09/24/2017 COPD (chronic obstructive pulmonary disease) ([facility]) Dependence on nocturnal oxygen therapy 12/25/2015 Depressive disorder, not elsewhere classified Diabetic polyneuropathy ([facility]) 09/24/2017 Diastolic dysfunction 04/29/2017 Diverticulosis of colon [...] joint replacement status 03/28/[address] Doherty, [facility] Lung nodule 02/11/2020 Menopause 1944 [...] on CPAP Osteoporosis osteopenia Other paraproteinemias 08/1999 Crewe 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 Paroxysmal SVT (supraventricular tachycardia) ([facility]) 05/26/2018 Retina hole, left 04/01/2018 Retinal tear left eye Senile nuclear cataract 02/17/2014 Tim Sleep apnea, obstructive Special screening for osteoporosis 06/2002 3-4 % decline compared to 1999, repeat in 2005 Past Surgical History: Procedure Laterality Date ABLATE HEART DYSRHYTHM FOCUS 12/2018 ARTHROPLASTY KNEE TOTAL 03/28/2010 Bessy, left at [facility] CAROTID (INTERNAL) ARTERY CATHETHER PLACEMENT Left 09/29/2015 CATHETER PLACEMENT INTERNAL CAROTID ARTERY performed by Nehemias Wells MD at [facility] DELIVERY 1969, 1972 x 2 COLONOSCOPY W/ LESION REMOVAL, SNARE 07/23/2011 Hyperplastic polyp,severe diverticulosiss,repeat colonoscopy 5 years COLORECTAL CANCER SCREEN; COLON 01/07/2002 normal repeat in 10 years, Dr Seals, [facility] DENTAL SURGERY PROCEDURE NEC 1961 wisdom teeth DEXA SCAN/BONE MINERAL AXIAL 2002 repeat in 2002, osteopenia noted, repeat 06 DEXA SCAN/BONE MINERAL AXIAL 07/25/2009 normal, low risk repeat 2011 EGD, FLEXIBLE, DIAGNOSTIC 03/20/2017 normal/[facility] ELECTROPHYSIOLOGY EVAL & ABLATE SVT N/A 04/14/2020 SVT EPS AND CATHETER ABLATION performed [place] Linda Camp IV, [place] [facility] [place]UORO BARIUM ENEMA 04/24/1998 extensive spastic diverticulosis [...] NASAL ENDOSCOPY, DX W/SINUSOSCOPY 05/09/2011 Dr. [place] [facility]OSCOPY,TOTAL ETHMOIDECTOMY 05/09/2011 Dr. [place] [facility] OTHER (INFORMATION) ACT 112 SIGNED 09/28/21 DR. MCNAMARA PULMONARY FUNCTION TEST SCREEN 10/04/1998 moderate obstruction REMOVE CATARACT, INSERT LENS PROSTH 04/27/2014 EXTRACAPSULAR CATARACT REMOVAL WITH INTRAOCULAR LENS performed by Antony Dumont MD at OR [facility] REMOVE CATARACT, INSERT LENS PROSTH 05/11/2014 EXTRACAPSULAR CATARACT REMOVAL WITH INTRAOCULAR LENS performed by Antony Dumont MD at [facility] REMOVE CATARACT, INSERT LENS PROSTH 05/11/2014 EXTRACAPSULAR CATARACT REMOVAL WITH INTRAOCULAR LENS performed by Antony Dumont MD at [facility] REMOVE GALLBLADDER 06/30/1996 laporscopic cholecystectomy, Dr Gunderson, [place], [place] REMOVE TONSILS & ADENOIDS, UNDER 12 1953 SINUS SURGERY PROCEDURE NEC 01/1999 with deviated septum repair, Dr Vidal, SMALL BOWEL ENDOSCOPY W/BX 07/03/2010 small sliding hiatal hernia, normal tissue bx TENDON SHEATH INCISION, FINGER 2007 right [place] THROMBOENDARECTOMY W/PATCH,NECK INCISION Left 09/29/2015 CAROTID ENDARTERECTOMY performed [place] Nehemias Wells [place] [facility] TOTAL ABD HYSTERECTOMY W/WO REMOVAL OF TUBE(S) Bilateral age 43 TOTAL HYSTERECTOMY 1987 with BSO Social History Tobacco Use Smoking status: Former Packs/day: 1.00 Years: 30.00 Pack years: 30.00 Types: Cigarettes Quit date: 2015 Years since quittin.0 Smokeless tobacco: Never Vaping Use Vaping Use: Never used Substance and Sexual Activity Alcohol use: No Drug use: No Review of patient's allergies indicates: Allergen Reactions [...] 0 Respiratory Therapy Supplies (NEBULIZER AIR TUBE/PLUGS) [facility] Use as directed 1 Each 0 Blood Glucose Monitoring Suppl (CONTOUR NEXT ONE) KIT Use as directed. Dx E11.9 1 Kit 0 Elastic Bandages & Supports (MEDICAL COMPRESSION STOCKINGS) [facility] Wear compression stockingsduring the day. Take off at night 2 Each 0 acetaminophen (TYLENOL) 500 MG Tablet Take 1 Tablet by mouth every 8 hours as needed. 100 Tab 0 Simethicone 125 MG CAPS Take 1 Tab by mouth as needed. Melatonin ER 1 MG TBCR Take 1 Tab by mouth at bedtime. Accu-Chek FastClix Lancets [facility] Test twice daily as directed. Pt has [...] No current facility-administered medications for this visit. OBJECTIVE: BP 119/74 (BP Site: Left Arm, BP Position: Sitting, BP Cuff Size: Large) | Pulse 85 | Resp 16 | Wt 105.5 kg (232 lb 8 oz) | SpO2 90% Comment: on own home oxygen | BMI 41.85 kg/m | BSA 2.16 m PHYSICAL EXAM: ECOG: Performance Status 1 = 80-90% Symptoms but nearly ambulatory General Appearance: No acute distress Lymph Nodes: Normal - No palpable lymph nodes in the neck or supraclavicular areas Lungs/Thorax:Expiratory wheezing throughout Heart: Normal - Regular rate and rhythm, normal S1, S2, no appreciable murmurs Extremities: +BLE edema L>R Abdomen: Normal - Soft, nontender, bowel sounds present, no appreciable hepatosplenomegaly, no palpable masses Neurologic: Normal - Grossly intact LABS: I reviewed her blood workup done on 08/23/2022: -IgG 1070, IgA 109, IgM 74 -free kappa light chain --> 32.4, free lambda light chain 13.7, Crewe/Lambda ratio 2.3. -M spike --> 0.54 g/dL -BUN/Creat: 20/0.8, Calcium 10.2, normal LFT -WBC 10,600, H&H of 11.9/39.4, Platelet count [id number]. IMPRESSION/PLAN: MGUS-IgG kappa Currently under observation Other than worsening fatigue patient denies constitutional symptoms. Denies bone pain. Lab results Done in July 2022 reviewed with her. M spike has remained stable around 0.54 g/dL, normal kidney and liver function, mild anemia which is chronic. Does not appear to be related to theMGUS diagnosis. No hypercalcemia Overall MGUS has remained stable Will continue to observe Will repeat blood workup in July 2023 Will see her back in the clinic in about [address] Wilber Muniz Hem/Onc documented in this encounter Nursing Notes * Shani Parker CMA - 11/26/2022 1:01 PM EDT Patient identifed by name and birthdate Do you have any concerns about pain management for today's visit? No Living Will or Advance Directive for Health Care as noted on the problem list. [facility] is a way you can talk to your provider on line through e-mail. Would you like to sign up? I can activate it for you? ALREADY ACTIVE Filed Vitals: 11/26/22 1300 BP: 119/74 Pulse: 85 Resp: 16 SpO2: 90% Weight: 105.5 kg (232 lb 8 oz) Patient was instructed to not get up on the exam table/exam chair until directed and assisted by their provider; patient is to remain seated in the chair/ wheelchair/ exam table/ exam chair for fall prevention and safety reasons. Patient is aware to have assistance to step down off exam table/exam chair with personnel. Patient voiced full comprehension of instructions. documented in this encounter Plan of Treatment Upcoming Encounters Date Type Specialty Care Team Description 11/27/2022 Office Visit Dermatology Nadeen Javier MD [address] [place] [address] 11/28/2022 Imaging Radiology 12/05/2022 Office Visit General Surgery Reji Delgado MD [address] [place] [address] 12/06/2022 Telemedicine Pulmonary Ab Carlisle MD [address] [place] [address] Cart, Telemed Pulm Gw [address] [place] [address] 12/09/2022 Imaging Radiology 12/16/2022 Office Visit Gastroenterology Jeanie Healy CRNP [address] [place] [address] 12/19/2022 PulmDiagnostic Pulmonary Function [place], Pft [address] [place] [address] 02/20/2023 Office Visit Dermatology Rita Davis MD [address] [place] [address] 03/31/2023 Office Visit Cardiology Macario Liu MD [address] [place] [facility] [address] 04/22/2023 Office Visit Ophthalmology Junior Mcnamara DO [address] [place] [address] 06/16/2023 Office Visit Internal Medicine Andrae Hays MD [address] [place] [address] 11/07/2023 Office Visit Sleep Disorders Idania Garner CRNP [address] [place] [address] 11/27/2023 Office Visit Hematology Oncology Wilber Muniz MD [address] [place] [address] Scheduled Orders Name Type Priority Associated Diagnoses Orde r Schedule CBC WITH WBC DIFFERENTIAL Lab STAT MGUS (monoclonal gammopathy of unknown significance) Expected: 08/28/2023, Expires: 11/27/2023 COMPREHENSIVE METABOLIC PANEL Lab STAT MGUS (monoclonal gammopathy of unknown significance) Expected: 08/28/2023, Expires: 11/27/2023 SERUM FREE LIGHT CHAINS Lab Routine MGUS (monoclonal gammopathy of unknown significance) Expected: 08/28/2023, Expires: 11/27/2023 SERUM PROTEIN ELECTROPHORESIS REFLEX PROFILE Lab Routine MGUS (monoclonal gammopathy of unknown significance) Expected: 08/28/2023, Expires: 11/27/2023 IMMUNOGLOBULIN QUANTITATIVE Lab Routine MGUS (monoclonal gammopathy of unknown significance) Expected: 08/28/2023, Expires: 11/27/2023 Scheduled Procedures Name Priority Associated Diagnoses Date/Ti [...] D LEVEL ONCE IN A LIFETIME-USE SMARTSET# [id number] Completed 05/27/2022, 01/18/2021, 02/10/2020, Additional history exists GARDASIL-HPV IMMUNIZATION SERIES Aged Out No longer eligible based on patient's age to complete this topic MENINGOCOCCAL (MENACTRA/MENVEO) Aged Out No longer eligible based on patient's age to complete this topic documented as of this encounter Medical Devices Implanted Type Area Structural Iron Worker Device Identifier Shelf Expiration Date Model / Serial / Lot Lens 10.5 Sn60wf - [id number] Implanted:Qty: 1 on 04/27/2014 at OR [facility] Left: Eye [employer] 02/27/2019 SN60WF.105 / [id number] / Lens 12.5 Sn60wf - [id number] Implanted:Qty: 1 on 05/11/2014 at OR [facility] Right: Eye [employer] 02/27/2019 SN60WF.125 / [id number] / documented as of this encounter Visit Diagnoses Diagnosis MGUS (monoclonal gammopathy of unknown significance)- Primary Monoclonal paraproteinemia documented in this encounter Advance Directives Latest [...] and were consensually agreed upon. Care Teams Transport Technician Relationship Specialty Start Date End Date Andrae Hays MD [address] [place] [address], [place] [address] PCP - General Internal Medicine 04/10/16 documented as of this encounter
[2023-05-22] MEDS ORDERED: SODIUM CHLORIDE 0.9% 500 ML IV STA (13:07)
--- NOTE | 2023-05-22 13:31 | Emergency Department Note ---
Impression & Plan Lower abdominal pain, Diverticulitis, Acute UTI, Leukocytosis, Fistula ED Provider Note NAME: BRITTANEY RIVAS AGE: 78 SEX: F : 1945 ARRIVES VIA: Walk-In INFORMANT: [Patient] ED PROVIDER(S): [Eliot Rodarte MD] CHIEF COMPLAINT: Hematuria, abdominal pain HISTORY OF PRESENT ILLNESS: The patient is a 78-year-old female with a history of cystocele, rectocele, diverticulitis, SVT and COPD. She states that for 6 weeks, she has been dealing with what was thought to be diverticulitis. She has been on 2 different courses of Augmentin. The last course finished sometime last week. During this timeframe, she has had some intermittent fevers. The patient complains of some lower abdominal pain. She states that despite the antibiotics, she is really not that much better. She had some outpatient laboratory work done during the last 6 weeks and her white count was 13,000. The patient has noticed some discoloration/pinkness to the urine for a few weeks but then yesterday and into today, the urine turned brown. She is concerned. She states the urine seems to be the color of her stool. She feels like her bladder is bruised. PMHx/PSHx/Social Hx: See Below PHYSICAL EXAM: GENERAL: Patient is in no acute distress. HEENT: No acute trauma, normocephalic atraumatic, mucous membranes moist, no nasal congestion. NECK: No stridor, no adenopathy, no meningismus, trachea is midline. LUNGS: Scattered expiratory wheezes, no respiratory distress, breath sounds equal. HEART: Without murmurs gallops or rubs, regular rate and rhythm. ABDOMEN: Soft, tender in the lower abdomen bilaterally, no obvious bladder distention. No peritonitis. EXTREMITIES: No cyanosis, full range of motion of all the joints without pain or difficulty. Mild bilateral pedal edema. NEUROLOGIC: Oriented x 3, no acute motor or sensory deficits, no focal weakness. SKIN: No jaundice, no diaphoresis. DIFFERENTIAL DIAGNOSIS: Diverticulitis, abscess, UTI, fistula, colitis, urinary retention, renal colic, malignancy, among others. EMERGENCY DEPARTMENT PROCEDURES: MEDICAL DECISION MAKING: There is a mild leukocytosis, this could certainly be consistent with infection. A very subtle anemia was seen with a hemoglobin of 11.1. Platelet count slightly elevated. No coagulopathy. No significant electrolyte abnormality or renal failure. No worrisome liver enzyme elevation. No evidence for pancreatitis. Urinalysis shows findings consistent with infection. Abdominal and pelvis CT shows diverticulitis with a potential small intramural abscess. A fistula was thought likely between the bowel and the bladder. No free air. On exam, the patient was tender in the lower abdomen. She was not toxic or febrile. The patient was given IV Zosyn as antibiotic coverage. She received IV saline for hydration. I did speak with general surgery, Dr. Persaud. There is no need for acute surgical intervention. He recommended IV saline, IV antibiotics and medical admission. I spoke with the patient and case management, the on-call hospitalist was consulted. Prior/Outside records/notes reviewed: Discharge summary note from 10/14/2021, admission for SVT. Imaging/x-ray results per my interpretation: Chronic Medical/Social conditions affecting care: COPD, chronic O2 use, advanced age. Care/Management discussed with: General surgery, Dr. Persaud. Case management and the on-call hospitalist. Level of care consideration(s): After review of the information above and other included data: --I believe the patient requires escalation of care to admission DISPOSITION: Admission with surgical consult Past Med/Surg History Medical History History of diverticulitis Hx of gout On home oxygen therapy WEARS O2 1L WITH EXERTION AND 3L AT HS Degenerative disc disease SVT (supraventricular tachycardia) HX (CARDIAC ABLATION) FOLLOWED BY DR. AUGUSTIN Diastolic dysfunction Asthma, moderate persistent "WAS TOLD TO USE RESCUE INHALER DAILY" MGUS (monoclonal gammopathy of unknown significance) GERD (gastroesophageal reflux disease) COPD, moderate Anxiety Chronic sinusitis Obstructive sleep apnea on CPAP CPAP AND O2 AT 3L AT HS Nocturnal hypoxia IBS (irritable bowel syndrome) Osteoarthritis Carotid stenosis Depression DM type 2 (diabetes mellitus, type 2) Hyperlipidemia Hypertension Surgical History (Updated 08/26/22 @ 10:03 by Cici Orourke RN) History of anesthesia reaction pulse ox drops with any anesthesia History of arthroscopy of left knee History of cardiac radiofrequency ablation (RFA) X 2 (LAST DONE 2019) History of dilatation and curettage History of esophagogastroduodenoscopy (EGD) History of colonoscopy H/O exploratory laparotomy History of tooth extraction History of hysterectomy S/P carotid endarterectomy "left, 09/2015" S/P tonsillectomy and adenoidectomy S/P cholecystectomy History of cataract surgery RT/LEFT S/P section X 2 S/P total knee arthroplasty "left" H/O sinus surgery x2 - 05/09/11 - MAC #3, ETT #7.0 Family History Mother Pancreatic cancer Father Prostate cancer Brother Family history of diabetes mellitus Other No family history of adverse response to anesthesia Social History Smoking Status: Unknown if ever smoked Tobacco Type: Cigarettes Second Hand Exposure: Yes (IN THE PAST); Do You Dip or Chew Tobacco: No; Hx Alcohol Use: No Hx Substance Use: No Preferred Language: Bulgarian Communication Ability: Effective Visual Impairment: No Limitations Hearing Ability: Normal [employer] Required: No Beliefs That Will Affect Care: None marital status: Current Living Situation: Alone current occupational status: retired Feels Safe at Home: Yes Assistive Devices: CPAP, Glasses, Nebulizer, Oxygen - at Night and Oxygen - Continuous Allergies Allergies Allergy/AdvReac Type Severity Reaction Status Date / Time CAMMIE Inhibitors Allergy Intermediate COUGH Verified 08/30/22 09:00 cefaclor Allergy Intermediate HIVES Verified 08/30/22 09:00 erythromycin base Allergy Intermediate HIVES Verified 08/30/22 09:00 hyoscyamine Allergy Intermediate HALLUCINATI Verified 08/30/22 09:00 ONS saccharin Allergy Intermediate WHEEZING Verified 08/30/22 09:00 Sulfa (Sulfonamide Allergy Intermediate HIVES Verified 08/30/22 09:00 Antibiotics) sulfite Allergy Intermediate WHEEZING Verified 08/30/22 09:00 etodolac AdvReac Intermediate STOMACH Verified 08/30/22 09:00 PAIN levofloxacin AdvReac Intermediate BRAIN FOG Verified 08/30/22 09:00 AND SPACEY sorbitol AdvReac Intermediate STOMACH Verified 08/30/22 09:00 PAIN Home Meds Home Medications Medication Instructions Recorded Confirmed aspirin 81 mg tablet,delayed 81 mg PO QAM 05/19/18 05/22/23 release (Andreas Low Dose Aspirin) cholecalciferol (vitamin D3) 25 1,000 unit PO QAM 05/19/18 05/22/23 mcg (1,000 unit) capsule (Vitamin D3) famotidine 20 mg tablet (Pepcid) 20 mg PO BID 05/19/18 05/22/23 losartan 100 mg tablet 100 mg PO QAM 05/19/18 05/22/23 metformin 500 mg tablet 500 mg PO QAM 05/19/18 05/22/23 multivitamin 1 tab PO QAM 05/19/18 05/22/23 fluticasone furoate 200 1 inh inhalation QAM 11/18/18 05/22/23 mcg-vilanterol 25 mcg/dose inhalation powder (Breo Ellipta) albuterol sulfate 90 mcg/actuation 2 puff inhalation Q4H PRN 09/18/19 05/22/23 aerosol inhaler (ProAir HFA) Cough,SOB or Wheeze fexofenadine 180 mg tablet 180 mg PO QPM 11/28/20 05/22/23 levalbuterol HCl 0.63 mg/3 mL 0.63 mg inhalation DIRECTED PRN 11/28/20 05/22/23 solution for nebulization (Xopenex) Shortness Of Breath Or Wheezing spironolactone 25 mg tablet 12.5 mg PO QAM 10/12/21 05/22/23 verapamil 180 mg tablet,extended 180 mg PO QAM 12/20/21 05/22/23 release flecainide 50 mg tablet 50 mg PO Q12H 08/26/22 05/22/23 simethicone 180 mg capsule 180 mg PO BID PRN STOMACH PAIN 08/26/22 05/22/23 Results & Data (ED) Vital Signs Vital Signs - 24 hr 05/22/23 12:56 05/22/23 13:40 05/22/23 13:40 Temperature 36.1 C L Temperature Source Temporal Artery Scan Pulse Rate 96 H 82 Pulse Rate [Apical] 82 Respiratory Rate 20 20 20 Respiratory Effort / Characteristics Non-Labored Non-Labored Spontaneous Respiratory Depth Normal Normal Respiratory Pattern Regular Blood Pressure 119/74 Blood Pressure [Left Arm] 110/71 Blood Pressure Mean 89 Blood Pressure Mean [Left Arm] 84 Blood Pressure Position [Left Arm] Semi-fowlers Pulse Oximetry 91 96 96 Oxygen Delivery Method Nasal Cannula Nasal Cannula Oxygen Flow Rate 1 1 1 Sepsis Recent Fever Within 48 Hours No Sepsis New/Unexplained Change in Mental Status No Sepsis Action Taken by Nursing No Action Required 05/22/23 13:43 05/22/23 15:34 Temperature Temperature Source Pulse Rate 89 Pulse Rate [Apical] 74 Respiratory Rate 18 Respiratory Effort / Characteristics Respiratory Depth Respiratory Pattern Blood Pressure Blood Pressure [Left Arm] 110/71 Blood Pressure Mean Blood Pressure Mean [Left Arm] 84 Blood Pressure Position [Left Arm] Pulse Oximetry 98 Oxygen Delivery Method Oxygen Flow Rate Sepsis Recent Fever Within 48 Hours Sepsis New/Unexplained Change in Mental Status Sepsis Action Taken by Skilled Nursing Medications Current Medication List: was personally reviewed by me Laboratory Data Attestation: I reviewed the patient's lab results. 05/22/23 13:25 05/22/23 13:25 Lab Results 05/22/23 05/22/23 Range/Units 13:25 14:50 WBC 12.46 H (4.8-10.8) K/ul RBC 4.11 L (4.20-5.40) M/uL Hgb 11.1 L (12.0-16.0) g/dl Hct 36.1 L (37.0-47.0) % MCV 87.8 (80.0-100.0) fL MCH 27.0 (25.0-34.0) pg MCHC 30.7 L (32.0-36.0) g/dL RDW Std Deviation 43.7 (36.4-46.3) fL RDW Coeff of Tasha 13.7 (11.5-14.5) % Plt Count 431 H (130-400) K/uL MPV 9.3 L (9.4-12.4) fL Immature Gran % (Auto) 0.3 % Neut % (Auto) 81.3 % Lymph % (Auto) 11.1 % [place] % (Auto) 6.0 % Eos % (Auto) 0.8 % Baso % (Auto) 0.5 % Neut # (Auto) 10.13 H (1.40-6.50) K/uL Lymph # (Auto) 1.38 (1.20-3.40) K/uL [place] # (Auto) 0.75 H (0.11-0.59) K/uL Eos # (Auto) 0.10 (0.00-0.50) K/uL Baso # (Auto) 0.06 (0.00-0.20) K/uL Immature Gran # (Auto) 0.04 (0.01-0.20) K/uL PT 11.6 (9.0-12.0) Seconds INR 1.1 (0.9-1.1) APTT 26.8 (21.0-31.0) Seconds PTT Ratio 1.0 Sodium 137 (136-145) mmol/L Potassium 4.3 (3.5-5.1) mmol/L Chloride 103 (98-107) mmol/L Carbon Dioxide 25 (21-32) mmol/L Anion Gap 9 (3-11) BUN 21 (6-23) mg/dl Creatinine 0.79 (0.6-1.2) mg/dl Est Cr Clr Drug Dosing 65.0 ml/min Est GFR ( Amer) 82.5 ml/min Est GFR (Non-Af Amer) 71.2 ml/min BUN/Creatinine Ratio 26.6 H (10-20) Glucose 192 H (70-99(Fasting)) mg/dl Calcium 10.1 (8.6-10.3) mg/dl Total Bilirubin 0.6 (0.2-1.0) mg/dl AST 15 (13-39) U/L ALT 14 (7-52) U/L Alkaline Phosphatase 117 H (34-104) U/L Total Protein 7.9 (6.0-8.3) gm/dl Albumin 4.0 (3.4-5.0) gm/dl Globulin 3.9 (2.5-4.0) gm/dl Albumin/Globulin Ratio 1.0 (0.9-2) Lipase 10 L (11-82) U/L Urine Color Yellow Urine Appearance Cloudy A (Clear) Urine pH 5.5 (4.5-7.5) Ur Specific [place] 1.015 (1.000-1.030) Urine Protein Negative (Negative) Urine Glucose (UA) Negative (Negative) Urine Ketones Negative (Negative) Urine Blood Trace H (Negative) Urine Nitrite Negative (Negative) Urine Bilirubin Negative (Negative) Urine Urobilinogen Negative (Negative) Ur Leukocyte Esterase 2+ H (Negative) Urine WBC (Auto) >30 H (0-5) /hpf Urine RBC (Auto) 0-4 (0-4) /hpf U Hyaline Cast (Auto) 5-10 H (0-5) /lpf U Epithel Cells (Auto) 5-10 H (0-5) /lpf Urine Bacteria (Auto) Negative (Negative) Administered Medications Discontinued Medications Sodium Chloride (Nss) 500 mls @ 999 mls/hr IV .Q31M STA Stop: 05/22/23 13:37 Last Infusion: 05/22/23 14:50 Dose: Infused Documented By: Admin: 05/22/23 13:37 Dose: 999 mls/hr Documented By: Piperacillin Sod/Tazobactam Sod (Zosyn) 4.5 gm in 120 mls @ 240 mls/hr IV NOW ONE Stop: 05/22/23 16:10 Last Infusion: 05/22/23 16:48 Dose: Infused Documented By: Admin: 05/22/23 16:03 Dose: 240 mls/hr Documented By: MATT Ioversol (Optiray 320 500ml) 82 ml IV ONCE ONE Stop: 05/22/23 15:07 Last Admin: 05/22/23 15:07 Dose: 82 ml Documented By: BENITA Imaging Data Radiologist's Impression: Abdomen/Pelvis CT 05/22/23 13:07 CT abd pelvis IV con only CLINICAL HISTORY: pain, hematuria TECHNIQUE: Helical axial images of the abdomen and pelvis were obtained and displayed. Automated dose lowering techniques and/or adjustment according to patient size were utilized for this exam. This exam was performed with intravenous contrast. CT DOSE: 1282.24 mGy.cm COMPARISON: Comparison is made to CT abdomen pelvis 03/15/2019 FINDINGS: Lower chest: Bibasilar atelectasis versus scarring is seen. A millimeter nodule in the right lower lobe (series 3 image 8) is stable. Liver: Unremarkable. No focal lesions are seen. Gallbladder and biliary tree: Patient is status post cholecystectomy. Physiologic prominence of the biliary ducts is noted. Pancreas: 19 mm cyst is seen in the pancreas. Spleen: Unremarkable. Adrenals: Unremarkable. Kidneys and ureters: Subcentimeter hypodensities are too small to characterize. 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 Bladder: Unremarkable. Reproductive organs: Unremarkable. Bowel: Bowel wall thickening and fat stranding is seen in the sigmoid colon. There is a gas and fluid collection measuring approximately 18 mm in diameter which may represent a prominent diverticulum or mural abscess. No dean perforation is seen. There is loss of the fat plane the bowel from the bladder with suggestion of a fistula. The appendix is normal. Lymph nodes Retroperitoneal: Unremarkable. Pelvic: Unremarkable. Mesenteric: Unremarkable. Peritoneum: Fat stranding is seen about the sigmoid colon. Vessels: Atherosclerotic calcifications are seen. Abdominal wall: Right gluteal lipoma is incidentally noted. Bones: Degenerative changes in the visualized spine. IMPRESSION: Findings are compatible with diverticulitis. There is suggestion of a colovesicular fistula and possible mural abscess. ACT 112: Negative or not required by law. Electronically signed by: Andrew Garcia M.D. 05/22/2023 3:35 PM Discharge Plan Visit Data Chief Complaint: Hematuria Stated Complaint: LOWER ABDOMINAL PAIN; BLOOD IN URINE ED Provider: Eliot Rodarte Discharge Problem: Lower abdominal pain, Diverticulitis, Acute UTI, Leukocytosis, Fistula Patient Disposition: Admitted As Inpatient Condition: Fair Forms Stand Alone Forms: [facility] [employer] Prescriptions Prescriptions: No Action albuterol sulfate [ProAir HFA] 90 mcg/actuation HFA aerosol inhaler 2 puff inhalation Q4H PRN (Reason: Cough,SOB or Wheeze) metformin 500 mg tablet 500 mg PO QAM aspirin [Andreas Low Dose Aspirin] 81 mg Tablet,Delayed Release (Dr/Ec) 81 mg PO QAM famotidine [Pepcid] 20 mg Tablet 20 mg PO BID losartan 100 mg Tablet 100 mg PO QAM cholecalciferol (vitamin D3) [Vitamin D3] 1,000 unit Capsule 1,000 unit PO QAM multivitamin Tablet 1 tab PO QAM fluticasone furoate-vilanterol [Breo Ellipta] 200-25 mcg/dose blister with device 1 inh inhalation QAM levalbuterol HCl [Xopenex] 0.63 mg/3 mL Solution For Nebulization 0.63 mg INHALATION DIRECTED PRN (Reason: Shortness Of Breath Or Wheezing) fexofenadine 180 mg Tablet 180 mg PO QPM verapamil 180 mg tablet extended release 180 mg PO QAM spironolactone 25 mg tablet 12.5 mg PO QAM simethicone 180 mg Capsule 180 mg PO BID PRN (Reason: STOMACH PAIN) flecainide 50 mg Tablet 50 mg PO Q12H Referrals Referrals: Andrae Hays MD [Primary Care Provider] - Discharge Problem: Leukocytosis Qualifiers: Leukocytosis type: unspecified Qualified Code(s): D72.829 - Elevated white blood cell count, unspecified
[2023-05-22 13:47] LABS: Basophils # (auto) 0.06 K/uL (0.00-0.20); Basophils % (auto) 0.5 %; Eosinophils % (auto) 0.8 %; Hematocrit (blood only) 36.1 % (37.0-47.0); Hemoglobin 11.1 g/dl (12.0-16.0); Immature Granulocytes # (auto) 0.04 K/uL (0.01-0.20); Immature Granulocytes % (auto) 0.3 %; Lymphocytes # (auto) 1.38 K/uL (1.20-3.40); Lymphocytes % (auto) 11.1 %; Mean Corpuscular Hgb Conc 30.7 g/dL (32.0-36.0); Mean Corpuscular Volume 87.8 fL (80.0-100.0); Mean Platelet Volume 9.3 fL (9.4-12.4); Monocytes # (auto) 0.75 K/uL (0.11-0.59); Neutrophils # (auto) 10.13 K/uL (1.40-6.50); Neutrophils % (auto) 81.3 %; Platelet Count 431 K/uL (130-400); RDW Coefficient of Variation 13.7 % (11.5-14.5); RDW Standard Deviation 43.7 fL (36.4-46.3); Red Blood Count 4.11 M/uL (4.20-5.40); White Blood Count 12.46 K/ul (4.8-10.8)
[2023-05-22 14:06] LABS: BUN Creatinine Ratio 26.6 (10-20); Bilirubin,Total 0.6 mg/dl (0.2-1.0); Calcium 10.1 mg/dl (8.6-10.3); Est GFR (African American) 82.5 ml/min; Est GFR (Non-African American) 71.2 ml/min; Globulin 3.9 gm/dl (2.5-4.0); Potassium 4.3 mmol/L (3.5-5.1); Total Protein 7.9 gm/dl (6.0-8.3)
[2023-05-22 14:14] LABS: INR 1.1 (0.9-1.1); Partial Thromboplastin Time 26.8 Seconds (21.0-31.0); Prothrombin Time 11.6 Seconds (9.0-12.0)
[2023-05-22] MEDS ORDERED: OPTIRAY 320 500ml IV ONE (15:06)
[2023-05-22 15:10] LABS: Appearance Urine Cloudy (Clear); Bacteria Urine Automated Negative (Negative); Bilirubin Urine Negative (Negative); Blood Urine Trace (Negative); Color Urine Yellow; Glucose Urine UA Negative (Negative); Ketones Urine Negative (Negative); Leukocyte Esterase Urine 2+ (Negative); Nitrite Urine Negative (Negative); Protein Urine Negative (Negative); RBC Urine Automated 0-4 /hpf (0-4); Specific Gravity Urine 1.015 (1.000-1.030); Urobilinogen Urine Negative (Negative); WBC Urine Automated >30 /hpf (0-5); pH Urine 5.5 (4.5-7.5)
--- NOTE | 2023-05-22 15:37 | CT Scan Report ---
CT abd pelvis IV con only CLINICAL HISTORY: pain, hematuria TECHNIQUE: Helical axial images of the abdomen and pelvis were obtained and displayed. Automated dose lowering techniques and/or adjustment according to patient size were utilized for this exam. This e xam was performed with intravenous contrast. CT DOSE: 1282.24 mGy.cm COMPARISON: Comparison is made to CT abdomen pelvis 03/15/2019 FINDINGS: Lower chest: Bibasilar atelectasis versus scarring is seen. A millimeter nodule in the right lower l obe (series 3 image 8) is stable. Liver: Unremarkable. No focal lesions are seen. Gallbladder and biliary tree: Patient is status post cholecystectomy. Physiologic prominence of the b iliary ducts is noted. Pancreas: 19 mm cyst is seen in the pancreas. Spleen: Unremarkable. Adrenals: Unremarkable. Kidneys and ureters: Subcentimeter hypodensities are too small to characterize. Angiomyolipoma is see n on the right. Bladder: Unremarkable. Reproductive organs: Unremarkable. Bowel: Bowel wall thickening and fat stranding is seen in the sigmoid colon. There is a gas and fluid collection measuring approximately 18 mm in diameter which may represent a prominent diverticulum or mural abscess. No dean perforation is seen. There is loss of the fat plane the bowel fro m the bladder with suggestion of a fistula. The appendix is normal. Lymph nodes Retroperitoneal: Unremarkable. Pelvic: Unremarkable. Mesenteric: Unremarkable. Peritoneum: Fat stranding is seen about the sigmoid colon. Vessels: Atherosclerotic calcifications are seen. Abdominal wall: Right gluteal lipoma is incidentally noted. Bones: Degenerative changes in the visualized spine. IMPRESSION: Findings are compatible with diverticulitis. There is suggestion of a colovesicular fistula and possi ble mural abscess. ACT 112: Negative or not required by law. Electronically signed by: Andrew Garcia M.D. 05/22/2023 3:35 PM
[2023-05-22] MEDS ORDERED: PIPERACILLIN/TAZOBACTAM 4.5 GM/120 ML BAG IV ONE (15:41)
--- NOTE | 2023-05-22 16:25 | History & Physical Report ---
Date of Service May 22, 2023 Assessment & Plan (1) Diverticulitis of large intestine with complication: Plan Ms. 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 Plan for urology and surgery consult with IV antibiotics. #Complicated diverticulitis with abscess and ?colovesical fistula -Failed course of augmentin as OP -Start zosyn q 8hours -CLD -Surgery/Urology consults -Tylenol q8h 1000g pain control prn #Chronic diarrhea/IBS -CTM, consider dicyclomine once flare resolves #Chronic HFpEF #Right Heart Failure -Home: Losartan 100mg, Spironolactone 12.5mg -Decline lasix as OP, will follow fluid status while inpatient -Heart Healthy diet -Daily weights #Paroxysmal SVT/AVNRT -Continue verapamil 180mg daily and flecainde 50mg BID #ASCVD #Prior CEA -Continue ASA -Intolerant to statins, holding zetia 2/2 GI issues #Chronic hypoxic respiratory failure #MASSIMO -Wean O2 >92% -CPAP #Chronic Leukocytosis #MGUS Stable, follows Dr Muniz DVT enoxaprin Admit to med surg for IV abx for diverticulitis Admission and Anticipated Discharge Date Admission Date: Time spent evaluating patient, direct bedside care, chart review, placing orders, interpretation of diagnostic studies, discussion with consultants, patient, and family members, as well as other required patient management activities is 60 minutes. History of Present Illness Chief Complaint: Abdominal pain Primary Care Provider: Andrae Hays MD Ms. 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 ED due to abdominal pain related to refractory diverticulitis. Patient states she has been experiencing abdominal pain and cramping for nearly 2 weeks, which has failed augmentin. She noted that the quality of pain changed yesterday, when her pain became sharp and more suprapubic--noting post-void spasms with urination. There was reports of hematuria last weekend prompting a UA which was negative. She states that she noted that dysuria became more prominent with brown urine in the last 24 hours. She denies fevers, loss of appetite, nausea, vomiting recently. In the ED, vitals were notable for BP of 110-140s, HRs in 70-80s, and O2 sat in high 90s on 1 L NC. Imaging revealed Bowel: Bowel wall thickening and fat stranding is seen in the sigmoid colon. There is a gas and fluid collection measuring approximately 18 mm in diameter which may represent a prominent diverticulum or mural abscess. No dean perforation is seen. There is loss of the fat plane the bowel from the bladder with suggestion of a fistula. The appendix is normal. ED interventions: ashleyn Patient to be admitted to med surg for further evaluation and management of complicated diverticulitis with ?mural abscess and fistula formation. Allergies Allergy/AdvReac Type Severity Reaction Status Date / Time CAMMIE Inhibitors Allergy Intermediate COUGH Verified 08/30/22 09:00 cefaclor Allergy Intermediate HIVES Verified 08/30/22 09:00 erythromycin base Allergy Intermediate HIVES Verified 08/30/22 09:00 hyoscyamine Allergy Intermediate HALLUCINATI Verified 08/30/22 09:00 ONS saccharin Allergy Intermediate WHEEZING Verified 08/30/22 09:00 Sulfa (Sulfonamide Allergy Intermediate HIVES Verified 08/30/22 09:00 Antibiotics) sulfite Allergy Intermediate WHEEZING Verified 08/30/22 09:00 etodolac AdvReac Intermediate STOMACH Verified 08/30/22 09:00 PAIN levofloxacin AdvReac Intermediate BRAIN FOG Verified 08/30/22 09:00 AND SPACEY sorbitol AdvReac Intermediate STOMACH Verified 08/30/22 09:00 PAIN Home Medications Medication Instructions Recorded Confirmed Type aspirin 81 mg tablet,delayed 81 mg PO QAM 05/19/18 05/22/23 History release (Andreas Low Dose Aspirin) cholecalciferol (vitamin D3) 25 1,000 unit PO QAM 05/19/18 05/22/23 History mcg (1,000 unit) capsule (Vitamin D3) famotidine 20 mg tablet (Pepcid) 20 mg PO BID 05/19/18 05/22/23 History losartan 100 mg tablet 100 mg PO QAM 05/19/18 05/22/23 History metformin 500 mg tablet 500 mg PO QAM 05/19/18 05/22/23 History multivitamin 1 tab PO QAM 05/19/18 05/22/23 History fluticasone furoate 200 1 inh inhalation QAM 11/18/18 05/22/23 History mcg-vilanterol 25 mcg/dose inhalation powder (Breo Ellipta) albuterol sulfate 90 mcg/actuation 2 puff inhalation Q4H PRN 09/18/19 05/22/23 History aerosol inhaler (ProAir HFA) Cough,SOB or Wheeze fexofenadine 180 mg tablet 180 mg PO QPM 11/28/20 05/22/23 History levalbuterol HCl 0.63 mg/3 mL 0.63 mg inhalation DIRECTED PRN 11/28/20 05/22/23 History solution for nebulization (Xopenex) Shortness Of Breath Or Wheezing spironolactone 25 mg tablet 12.5 mg PO QAM 10/12/21 05/22/23 History verapamil 180 mg tablet,extended 180 mg PO QAM 12/20/21 05/22/23 History release flecainide 50 mg tablet 50 mg PO Q12H 08/26/22 05/22/23 History simethicone 180 mg capsule 180 mg PO BID PRN STOMACH PAIN 08/26/22 05/22/23 History Past Med/Surg History Medical History (Updated 05/22/23 @ 17:17 by Melinda Aranda MD) History of diverticulitis Hx of gout On home oxygen therapy WEARS O2 1L WITH EXERTION AND 3L AT HS Degenerative disc disease SVT (supraventricular tachycardia) HX (CARDIAC ABLATION) FOLLOWED BY DR. AUGUSTIN Diastolic dysfunction Asthma, moderate persistent "WAS TOLD TO USE RESCUE INHALER DAILY" MGUS (monoclonal gammopathy of unknown significance) GERD (gastroesophageal reflux disease) COPD, moderate Anxiety Chronic sinusitis Obstructive sleep apnea on CPAP CPAP AND O2 AT 3L AT HS Nocturnal hypoxia IBS (irritable bowel syndrome) Osteoarthritis Carotid stenosis Depression DM type 2 (diabetes mellitus, type 2) Hyperlipidemia Hypertension Surgical History (Updated 08/26/22 @ 10:03 by Cici Orourke RN) History of anesthesia reaction pulse ox drops with any anesthesia History of arthroscopy of left knee History of cardiac radiofrequency ablation (RFA) X 2 (LAST DONE 2019) History of dilatation and curettage History of esophagogastroduodenoscopy (EGD) History of colonoscopy H/O exploratory laparotomy History of tooth extraction History of hysterectomy S/P carotid endarterectomy "left, 09/2015" S/P tonsillectomy and adenoidectomy S/P cholecystectomy History of cataract surgery RT/LEFT S/P section X 2 S/P total knee arthroplasty "left" H/O sinus surgery x2 - 05/09/11 - MAC #3, ETT #7.0 Family History Mother Pancreatic cancer Father Prostate cancer Brother Family history of diabetes mellitus Other No family history of adverse response to anesthesia Social History Smoking Status: Unknown if ever smoked Tobacco Type: Cigarettes Second Hand Exposure: Yes (IN THE PAST); Do You Dip or Chew Tobacco: No; Hx Alcohol Use: No Hx Substance Use: No Preferred Language: Telugu Communication Ability: Effective Visual Impairment: No Limitations Hearing Ability: Normal Computer Tech Required: No Beliefs That Will Affect Care: None marital status: Current Living Situation: Alone current occupational status: retired Feels Safe at Home: Yes Assistive Devices: CPAP, Glasses, Nebulizer, Oxygen - at Night and Oxygen - Continuous Review of Systems Review of Systems: Constitutional: (-) fever/chills, (-) recent loss of weight, (-) appetite changes, (-) night sweats. Head: (-) headache, (-) dizziness. Eye: (-) blurring of vision, (-) double vision, (-) redness. Ear: (-) hearing loss, (-) discharge, (-) vertigo Nose: (-) discharge, (-) bleeding, (-) congestion, (-) post nasal drip. Throat: (-) sore throat, (-) hoarseness of voice Cardiovascular: (-) chest pain, (-) palpitations, (-) syncope, (-) orthopnea, (- ) PND, (+) leg swelling *chronic L>R Respiratory: (-) shortness of breath, (-) cough, (-) wheezing, (-) hemoptysis. Neuro: (-) weakness in extremities, (-) numbness, (-) tingling, (-) tremor. Gastrointestinal: (++) belly pain, (-) belly distension, (-) nausea, (-) vomiting, (++) diarrhea, (-) constipation, (-) na, (-) hematemesis, (-) hematochezia, (-) bowel incontinence Genitourinary: (-) hematuria, (-) dysuria, (-) polyuria, (-) hesitancy, (-) frequency, (-) urinary incontinence. Musculoskeletal: (-) myalgia, (-) arthralgia. Skin: (-) rashes. Endocrine: (-) heat/cold intolerance. Psychiatry: (-) depression, (-) hallucination. Physical Exam Physical Exam: GENERAL APPEARANCE: AxOx4, generally well-appearing F, no acute distress. HEENT: NC, AT. MMM. EOMI, clear conjunctiva, oropharynx clear. NECK: Supple without lymphadenopathy. No stiffness or restricted ROM. HEART: Normal rate and regular rhythm, normal S1/S1, no m/r/g LUNGS: CTAB, moving air well. No crackles or wheezes are heard. ABDOMEN: Soft, nondistended, tender with moderate palpation over LLQ/suprapubic area EXTREMITIES: Without cyanosis, clubbing, 1+ edema BLE, r>L NEUROLOGICAL: Grossly nonfocal. Alert and oriented, moving all 4 extremities. CN not formally tested but appear grossly intact. Skin: Warm and dry without any rash. Results & Data Results & Data Vital Signs (Past 12 Hours) Vital Signs Temp Pulse Pulse Resp BP BP Pulse Ox 05/22/23 15:34 74 18 110/71 98 05/22/23 13:43 89 05/22/23 13:40 82 20 110/71 96 05/22/23 13:40 82 20 96 05/22/23 12:56 36.1 C L 96 H 20 119/74 91 O2 Del Method O2 Flow Rate 05/22/23 15:34 05/22/23 13:43 05/22/23 13:40 Nasal Cannula 1 05/22/23 13:40 1 05/22/23 12:56 Nasal Cannula 1 Laboratory Results Short CBC 05/22/23 Range/Units 13:25 WBC 12.46 H (4.8-10.8) K/ul Hgb 11.1 L (12.0-16.0) g/dl Hct 36.1 L (37.0-47.0) % Plt Count 431 H (130-400) K/uL BMP 05/22/23 13:25 Sodium 137 Potassium 4.3 Chloride 103 Carbon Dioxide 25 BUN 21 Creatinine 0.79 Glucose 192 H Calcium 10.1 Liver Function 05/22/23 Range/Units 13:25 Total Bilirubin 0.6 (0.2-1.0) mg/dl AST 15 (13-39) U/L ALT 14 (7-52) U/L Alkaline Phosphatase 117 H (34-104) U/L Albumin 4.0 (3.4-5.0) gm/dl Urine 05/22/23 Range/Units 14:50 Urine Color Yellow Urine Appearance Cloudy A (Clear) Urine pH 5.5 (4.5-7.5) Ur Specific [place] 1.015 (1.000-1.030) Urine Protein Negative (Negative) Urine Glucose (UA) Negative (Negative) Medications Administered Home Medications Medication Instructions Recorded Confirmed Last Taken aspirin 81 mg tablet,delayed 81 mg PO [facility] 05/19/18 08/30/22 08/29/22 09:00 release (Andreas Low Dose Aspirin) cholecalciferol (vitamin D3) 25 1,000 unit PO [facility] 05/19/18 08/30/22 08/29/22 09:00 mcg (1,000 unit) capsule (Vitamin D3) famotidine 20 mg tablet (Pepcid) 20 mg PO BID 05/19/18 08/30/22 08/30/22 07:00 losartan 100 mg tablet 100 mg PO [facility] 05/19/18 08/30/22 08/30/22 07:00 metformin 500 mg tablet 500 mg PO [facility] 05/19/18 08/30/22 08/29/22 09:00 multivitamin 1 tab PO [facility] 05/19/18 08/30/22 08/29/22 09:00 fluoxetine 10 mg capsule (Prozac) 10 mg PO [facility] 11/18/18 08/30/22 08/29/22 09:00 fluticasone furoate 200 1 inh inhalation [facility] 0508/30/22 08/29/22 09:00 mcg-vilanterol 25 mcg/dose inhalation powder (Breo Ellipta) melatonin 1 mg tablet,extended 1 mg PO HS 09/11/19 08/30/22 08/29/22 20:00 release albuterol sulfate 90 mcg/actuation 2 puff inhalation Q4H PRN 09/18/19 08/30/22 08/29/22 20:00 aerosol inhaler (ProAir HFA) Cough,SOB or Wheeze fexofenadine 180 mg tablet 180 mg PO QPM 11/28/20 08/30/22 08/29/22 20:00 levalbuterol HCl 0.63 mg/3 mL 0.63 mg inhalation DIRECTED PRN 11/28/20 08/30/22 08/23/22 solution for nebulization (Xopenex) Shortness Of Breath Or Wheezing spironolactone 25 mg tablet 12.5 mg PO QAM 10/12/21 08/30/22 08/29/22 09:00 verapamil 180 mg tablet,extended 180 mg PO QAM 12/20/21 08/30/22 08/30/22 07:00 release flecainide 50 mg tablet 50 mg PO Q12H 08/26/22 08/30/22 08/30/22 07:00 simethicone 180 mg capsule 180 mg PO BID PRN STOMACH PAIN 08/26/22 08/30/22 08/29/22 20:00 Active Medications Generic Name Dose Route Start Last Admin Trade Name Freq PRN Reason Stop Dose Admin Piperacillin Sod/Tazobactam Sod 4.5 gm in 120 mls @ 240 mls/hr 05/22/23 15:41 05/22/23 16:03 Zosyn IV 05/22/23 16:10 240 mls/hr NOW ONE Administration
[2023-05-22] MEDS ORDERED: CARBOHYDRATES FOR HYPOGLYCEMIA PO PRN (18:35)
[2023-05-22] MEDS ORDERED: DEXTROSE 50% 50 ML SYRINGE IV PRN (18:35)
[2023-05-22] MEDS ORDERED: GLUCAGON FOR INJ 1 MG VIAL SQ PRN (18:35)
[2023-05-22] MEDS ORDERED: GLUCOSE 40% GEL 15 GM TUBE PO PRN (18:35)
[2023-05-22] MEDS ORDERED: LEVALBUTEROL HCL 0.63 MG/3 ML NEB INH PRN (18:35)
[2023-05-22] MEDS ORDERED: GLUCOSE 10 TAB/TUBE PO PRN (18:35)
[2023-05-22] MEDS: ENOXAPARIN INJ 40 MG/0.4 ML SYR SQ SCH (19:32)
[2023-05-22] MEDS: FEXOFENADINE HCL 180 MG TAB PO SCH (19:33)
[2023-05-22] MEDS: FAMOTIDINE 20 MG TAB PO SCH (19:33)
[2023-05-22] MEDS: FLECAINIDE ACETATE 100 MG TABLET PO SCH (19:34)
[2023-05-22] MEDS: PIPERACILLIN/TAZOBACTAM 4.5 GM in DEXTROSE 5% MINI-B 100 ML IV SCH (19:43)
--- NOTE | 2023-05-22 20:26 | Surgery Consultation ---
Date of Consultation May 22, 2023 Assessment & Plan (1) Diverticulitis of large intestine with complication: The patient has been admitted on the hospitalist service. From a surgical perspective we recommend proceeding as follows: Provide analgesics Provide antiemetics Due to the noted diverticulitis I recommend making the patient n.p.o. with the exception of ice chips and medicines with a small sip of water. The patient should be hydrated with intravenous fluidsI have communicated with the hospitalist and they will take care of ordering necessary IV fluids Serial labs to be followed The patient has been placed on antibiotics in the form of Zosyn which should continue Consideration be given to advancing the patient's diet with improvement of her clinical symptomatology At the present time there is no urgent need for surgical intervention. I did discuss with the patient if she did require urgent surgical intervention she would likely require a colostomy which she would like to avoid. It would be preferable for patient to have her acute infection treated in a conservative manner followed by an up-to-date colonoscopy before any surgical intervention is to be undertaken. In the event that the patient does require surgery she may require referral to a colorectal specialist Additional recommendations be forthcoming based on her clinical course as unfolds (2) Fistula: Supervising Physician Co-Signing Physician Notes s/w Wayne No, labs and imaging reviewed. diverticulitis with colovesicular fistula. no indication for acute surgical intervention, treat with abx, npo. will need outpatient colorectal surgery follow up. History of Present Illness Reason for Consultation: Diverticulitis Attending Physician: Melinda Aranda MD History of Present Illness This is a 78-year-old female who presented to the emergency department secondary to what she describes as lower abdominal pain. Patient relates that she has had multiple episodes of diverticulitis in the past however she has never been hospitalized for this problem. She notes that her current situation has been going on for approximately 6 weeks and she has been placed on 2 courses of Augmentin by her primary care physician without relief. Patient says that she is having pain in her lower abdomen greatest in the suprapubic region and to a lesser degree the left lower and right lower quadrants. The patient reports that she is having dysuria and recently noted some hematuria. The patient also notes that she feels as though she is passing air from her vagina and potentially passing air when she voids. She also relates that over the past 24 to 48 hours the color of her urine has changed to the color of stool. The patient notes that she has had a colonoscopy but it has been greater than 5 years and the best of her knowledge she only had benign polyps. She has had multiple abdominal surgeries in the form of 2 C-sections, a hysterectomy, exploratory laparoscopy, and a cholecystectomy. With her current presentation she has not had any fevers, shakes, or chills and she is also not had any nausea or vomiting. She does not report any palliative or provocative factors to her current symptomatology. Since arrival to hospital patient has had labs and imaging which independent reviewed. A CT scan of the abdomen pelvis showed the patient had findings compatible with diverticulitis. The patient was noted to have bowel wall thickening and fat stranding seen in the region of the sigmoid colon. There was a gas and fluid collection which measured approximate 18 mm which was felt to represent either a prominent diverticulum or mural abscess. There is no dean perforation seen. There was suggestion of a fistula between the bowel and the bladder. The appendix was noted to be normal. Labs included CBC her white blood cell count was elevated 12.4. Hemoglobin and hematocrit were 11.1 and 36.1. Platelet count was 4 and 31,000. Coagulation studies were normal. Chemistry profile showed sodium and potassium along with the BUN and creatinine were normal. Urinalysis showed cloudy urine with trace blood. There is 2+ leukocyte Estrace and greater than 30 white blood cells per high-power field. There is no bacteria on the study. At the time of my interview she was resting comfortably in bed and she was in no distress. Allergies Allergy/AdvReac Type Severity Reaction Status Date / Time CAMMIE Inhibitors Allergy Intermediate COUGH Verified 08/30/22 09:00 cefaclor Allergy Intermediate HIVES Verified 08/30/22 09:00 erythromycin base Allergy Intermediate HIVES Verified 08/30/22 09:00 hyoscyamine Allergy Intermediate HALLUCINATI Verified 08/30/22 09:00 ONS saccharin Allergy Intermediate WHEEZING Verified 08/30/22 09:00 Sulfa (Sulfonamide Allergy Intermediate HIVES Verified 08/30/22 09:00 Antibiotics) sulfite Allergy Intermediate WHEEZING Verified 08/30/22 09:00 etodolac AdvReac Intermediate STOMACH Verified 08/30/22 09:00 PAIN levofloxacin AdvReac Intermediate BRAIN FOG Verified 08/30/22 09:00 AND SPACEY sorbitol AdvReac Intermediate STOMACH Verified 08/30/22 09:00 PAIN Home Medications Medication Instructions Recorded Confirmed Type aspirin 81 mg tablet,delayed 81 mg PO QAM 05/19/18 05/22/23 History release (Andreas Low Dose Aspirin) cholecalciferol (vitamin D3) 25 1,000 unit PO QAM 05/19/18 05/22/23 History mcg (1,000 unit) capsule (Vitamin D3) famotidine 20 mg tablet (Pepcid) 20 mg PO BID 05/19/18 05/22/23 History losartan 100 mg tablet 100 mg PO QAM 05/19/18 05/22/23 History metformin 500 mg tablet 500 mg PO QAM 05/19/18 05/22/23 History multivitamin 1 tab PO QAM 05/19/18 05/22/23 History fluticasone furoate 200 1 inh inhalation QAM 11/18/18 05/22/23 History mcg-vilanterol 25 mcg/dose inhalation powder (Breo Ellipta) albuterol sulfate 90 mcg/actuation 2 puff inhalation Q4H PRN 09/18/19 05/22/23 History aerosol inhaler (ProAir HFA) Cough,SOB or Wheeze fexofenadine 180 mg tablet 180 mg PO QPM 11/28/20 05/22/23 History levalbuterol HCl 0.63 mg/3 mL 0.63 mg inhalation DIRECTED PRN 11/28/20 05/22/23 History solution for nebulization (Xopenex) Shortness Of Breath Or Wheezing spironolactone 25 mg tablet 12.5 mg PO QAM 10/12/21 05/22/23 History verapamil 180 mg tablet,extended 180 mg PO QAM 12/20/21 05/22/23 History release flecainide 50 mg tablet 50 mg PO Q12H 08/26/22 05/22/23 History simethicone 180 mg capsule 180 mg PO BID PRN STOMACH PAIN 08/26/22 05/22/23 History Patient History Medical History History of diverticulitis Hx of gout On home oxygen therapy WEARS O2 1L WITH EXERTION AND 3L AT HS Degenerative disc disease SVT (supraventricular tachycardia) HX (CARDIAC ABLATION) FOLLOWED BY DR. AUGUSTIN Diastolic dysfunction Asthma, moderate persistent "WAS TOLD TO USE RESCUE INHALER DAILY" MGUS (monoclonal gammopathy of unknown significance) GERD (gastroesophageal reflux disease) COPD, moderate Anxiety Chronic sinusitis Obstructive sleep apnea on CPAP CPAP AND O2 AT 3L AT HS Nocturnal hypoxia IBS (irritable bowel syndrome) Osteoarthritis Carotid stenosis Depression DM type 2 (diabetes mellitus, type 2) Hyperlipidemia Hypertension Surgical History History of anesthesia reaction pulse ox drops with any anesthesia History of arthroscopy of left knee History of cardiac radiofrequency ablation (RFA) X 2 (LAST DONE 2019) History of dilatation and curettage History of esophagogastroduodenoscopy (EGD) History of colonoscopy H/O exploratory laparotomy History of tooth extraction History of hysterectomy S/P carotid endarterectomy "left, 09/2015" S/P tonsillectomy and adenoidectomy S/P cholecystectomy History of cataract surgery RT/LEFT S/P section X 2 S/P total knee arthroplasty "left" H/O sinus surgery x2 - 05/09/11 - MAC #3, ETT #7.0 Family History Mother Pancreatic cancer Father Prostate cancer Brother Family history of diabetes mellitus Other No family history of adverse response to anesthesia Social History Smoking Status: Former smoker Tobacco Type: Cigarettes Second Hand Exposure: Yes (IN THE PAST); Do You Dip or Chew Tobacco: No; Hx Alcohol Use: Yes Hx Substance Use: No Preferred Language: Montenegrin Communication Ability: Effective Visual Impairment: No Limitations Hearing Ability: Normal [employer] Required: No Beliefs That Will Affect Care: None marital status: Current Living Situation: Alone current occupational status: retired Other Information That Helps Us Care for You: No Feels Safe at Home: Yes Safety Concerns: Feels Safe At This Time Assistive Devices: None Review of Systems Constitutional: no fever and no chills Eyes: + corrective lenses Ear, Nose, Mouth, Throat: no hearing loss Respiratory: no cough Cardiovascular: no chest pain Gastrointestinal: as per Subjective / HPI Genitourinary: as per Subjective / HPI Musculoskeletal: no back pain Integumentary: no rash Neurologic: no localized weakness Physical Exam Constitutional: WD/WN, vitals as above Eyes: no conjunctival abnormality ENMT: Ears: no hearing impairment Mouth: no oropharynx abnormality Neck: trachea midline Respiratory: normal respiratory effort; no respiratory distress and no labored breathing Cardiovascular: Rate/Rhythm: regular rate and regular rhythm Gastrointestinal (Abdomen): Abdomen is rotund but soft and nonrigid. There is no rebound tenderness or guarding. The patient did exhibit tenderness to palpation in the suprapubic area as well as the right and left lower quadrants. Musculoskeletal: No calf tenderness Skin: no rashes Neurologic: moves all extremities Psychiatric: A+Ox3, euthymic affect Results & Data Vital Signs (Past 12 Hours) Vital Signs Temp Pulse Pulse Pulse Resp BP BP 05/22/23 18:35 36.3 C L 82 16 05/22/23 15:34 74 18 110/71 05/22/23 13:43 89 05/22/23 13:40 82 20 110/71 05/22/23 13:40 82 20 05/22/23 12:56 36.1 C L 96 H 20 119/74 BP Pulse Ox O2 Del Method O2 Flow Rate 05/22/23 18:35 144/81 H 91 Room Air 05/22/23 15:34 98 05/22/23 13:43 05/22/23 13:40 96 Nasal Cannula 1 05/22/23 13:40 96 1 05/22/23 12:56 91 Nasal Cannula 1 PG Care Time/CCT Total # of Minutes Spent Total Time Spent with Patient: Total time spent is greater than 50% in coordination of care (as documented) at patient's floor/unit and/or counseling patient: Coding Level of Care Code 92273 INT INP/OBS CARE MIN Diagnoses Diverticulitis of large intestine with complication K57.32 Fistula L98.8
--- NOTE | 2023-05-22 20:28 | Urology Consultation ---
Date of Consultation May 22, 2023 Assessment & Plan (1) Diverticulitis of large intestine with complication: Patient has been admitted on the hospital service. We recommend continuing care as follows: Analgesics to be provided Antiemetics to be provided Due to the noted diverticulitis the patient's been made n.p.o. with the exception of ice chips and small sip of water when taking medicines The patient is to be hydrated with intravenous fluids Serial labs to be followed Antibiotics in form of Zosyn should continue I discussed case with my attending physician, Dr. Jimenez. Patient may require cystoscopic intervention at some point but will be best to treat the patient's acute infection with antibiotics as noted above as it may be difficult to identify any fistulous via cystoscopy at this time Additional recommendations be forthcoming based on her clinical course as it unfolds (2) Fistula: History of Present Illness Reason for Consultation: Diverticulitis with concern for colovesical fistula Attending Physician: Melinda Aranda MD History of Present Illness This a 78-year-old female who came to the emergency department at [facility] secondary to suprapubic pain. Patient reports she has had multiple episodes of diverticulitis in the past with her current episode going on for approximately 6 weeks. Her PCP is treated with 2 courses of Augmentin with little relief of her symptomatology. Patient reports that she is having pain in her lower abdomen with the greatest in the suprapubic region. She notes that she is having dysuria along with some hematuria. She also notes that the color of her urine has changed to stool color over the past 24 to 48 hours. She does report that she is having some questionable pneumaturia and she feels as though she is also passing air from her vagina. She notes that she has had a colonoscopy in the past with polypectomy (she feels that these were benign) but has been in excess of 5 years. She has had multiple abdominal surgeries including 2 C-sections, hysterectomy, exploratory laparoscopy, and a cholecystectomy. She has not had any fevers, shakes, or chills and denies any nausea or vomiting with her current presentation. Since arrival to hospital patient has had labs and imaging which independent reviewed. A CT scan of the abdomen pelvis showed the patient had findings compatible with diverticulitis. The patient was noted to have bowel wall thickening and fat stranding seen in the region of the sigmoid colon. There was a gas and fluid collection which measured approximate 18 mm which was felt to represent either a prominent diverticulum or mural abscess. There is no dean perforation seen. There was suggestion of a fistula between the bowel and the bladder. The appendix was noted to be normal. Labs included CBC her white blood cell count was elevated 12.4. Hemoglobin and hematocrit were 11.1 and 3 6.1. Platelet count was 4 and 31,000. Coagulation studies were normal. Chemistry profile showed sodium and potassium along with the BUN and creatinine were normal. Urinalysis showed cloudy urine with trace blood. There is 2+ leukocyte Estrace and greater than 30 white blood cells per high-power field. There is no bacteria on the study. At the time of my interview she was resting comfortably in bed and she was in no distress. Allergies Allergy/AdvReac Type Severity Reaction Status Date / Time CAMMIE Inhibitors Allergy Intermediate COUGH Verified 08/30/22 09:00 cefaclor Allergy Intermediate HIVES Verified 08/30/22 09:00 erythromycin base Allergy Intermediate HIVES Verified 08/30/22 09:00 hyoscyamine Allergy Intermediate HALLUCINATI Verified 08/30/22 09:00 ONS saccharin Allergy Intermediate WHEEZING Verified 08/30/22 09:00 Sulfa (Sulfonamide Allergy Intermediate HIVES Verified 08/30/22 09:00 Antibiotics) sulfite Allergy Intermediate WHEEZING Verified 08/30/22 09:00 etodolac AdvReac Intermediate STOMACH Verified 08/30/22 09:00 PAIN levofloxacin AdvReac Intermediate BRAIN FOG Verified 08/30/22 09:00 AND SPACEY sorbitol AdvReac Intermediate STOMACH Verified 08/30/22 09:00 PAIN Home Medications Medication Instructions Recorded Confirmed Type aspirin 81 mg tablet,delayed 81 mg PO QAM 05/19/18 05/22/23 History release (Andreas Low Dose Aspirin) cholecalciferol (vitamin D3) 25 1,000 unit PO QAM 05/19/18 05/22/23 History mcg (1,000 unit) capsule (Vitamin D3) famotidine 20 mg tablet (Pepcid) 20 mg PO BID 05/19/18 05/22/23 History losartan 100 mg tablet 100 mg PO QAM 05/19/18 05/22/23 History metformin 500 mg tablet 500 mg PO QAM 05/19/18 05/22/23 History multivitamin 1 tab PO QAM 05/19/18 05/22/23 History fluticasone furoate 200 1 inh inhalation QAM 11/18/18 05/22/23 History mcg-vilanterol 25 mcg/dose inhalation powder (Breo Ellipta) albuterol sulfate 90 mcg/actuation 2 puff inhalation Q4H PRN 09/18/19 05/22/23 History aerosol inhaler (ProAir HFA) Cough,SOB or Wheeze fexofenadine 180 mg tablet 180 mg PO QPM 11/28/20 05/22/23 History levalbuterol HCl 0.63 mg/3 mL 0.63 mg inhalation DIRECTED PRN 11/28/20 05/22/23 History solution for nebulization (Xopenex) Shortness Of Breath Or Wheezing spironolactone 25 mg tablet 12.5 mg PO QAM 10/12/21 05/22/23 History verapamil 180 mg tablet,extended 180 mg PO QAM 12/20/21 05/22/23 History release flecainide 50 mg tablet 50 mg PO Q12H 08/26/22 05/22/23 History simethicone 180 mg capsule 180 mg PO BID PRN STOMACH PAIN 08/26/22 05/22/23 History Patient History Medical History History of diverticulitis Hx of gout On home oxygen therapy WEARS O2 1L WITH EXERTION AND 3L AT HS Degenerative disc disease SVT (supraventricular tachycardia) HX (CARDIAC ABLATION) FOLLOWED BY DR. AUGUSTIN Diastolic dysfunction Asthma, moderate persistent "WAS TOLD TO USE RESCUE INHALER DAILY" MGUS (monoclonal gammopathy of unknown significance) GERD (gastroesophageal reflux disease) COPD, moderate Anxiety Chronic sinusitis Obstructive sleep apnea on CPAP CPAP AND O2 AT 3L AT HS Nocturnal hypoxia IBS (irritable bowel syndrome) Osteoarthritis Carotid stenosis Depression DM type 2 (diabetes mellitus, type 2) Hyperlipidemia Hypertension Surgical History History of anesthesia reaction pulse ox drops with any anesthesia History of arthroscopy of left knee History of cardiac radiofrequency ablation (RFA) X 2 (LAST DONE 2019) History of dilatation and curettage History of esophagogastroduodenoscopy (EGD) History of colonoscopy H/O exploratory laparotomy History of tooth extraction History of hysterectomy S/P carotid endarterectomy "left, 09/2015" S/P tonsillectomy and adenoidectomy S/P cholecystectomy History of cataract surgery RT/LEFT S/P section X 2 S/P total knee arthroplasty "left" H/O sinus surgery x2 - 05/09/11 - MAC #3, ETT #7.0 Family History Mother Pancreatic cancer Father Prostate cancer Brother Family history of diabetes mellitus Other No family history of adverse response to anesthesia Social History Smoking Status: Former smoker Tobacco Type: Cigarettes Second Hand Exposure: Yes (IN THE PAST); Do You Dip or Chew Tobacco: No; Hx Alcohol Use: Yes Hx Substance Use: No Preferred Language: Frisian Communication Ability: Effective Visual Impairment: No Limitations Hearing Ability: Normal Palliative Care Coordinator Required: No Beliefs That Will Affect Care: None marital status: Current Living Situation: Alone current occupational status: retired Other Information That Helps Us Care for You: No Feels Safe at Home: Yes Safety Concerns: Feels Safe At This Time Assistive Devices: None Review of Systems Constitutional: no fever and no chills Eyes: + corrective lenses Ear, Nose, Mouth, Throat: no hearing loss Respiratory: no cough and no dyspnea Cardiovascular: no chest pain Gastrointestinal: as per Subjective / HPI Genitourinary: as per Subjective / HPI Musculoskeletal: no back pain Integumentary: no rash Neurologic: no localized weakness Physical Exam Constitutional: WD/WN, vitals as above Eyes: no conjunctival abnormality ENMT: Ears: no hearing impairment and no external ear abnormality Mouth: no oropharynx abnormality Neck: trachea midline Respiratory: normal respiratory effort; no respiratory distress and no labored breathing Cardiovascular: Rate/Rhythm: regular rate and regular rhythm Gastrointestinal (Abdomen): Abdomen is soft and nondistended. The patient did have pain across her lower abdomen most prominent in the suprapubic region. There is no rebound tenderness or guarding. Musculoskeletal: No calf tenderness Skin: no rashes Neurologic: moves all extremities Psychiatric: A+Ox3, euthymic affect Results & Data Vital Signs (Past 12 Hours) Vital Signs Temp Pulse Pulse Pulse Resp BP BP 05/22/23 18:35 36.3 C L 82 16 05/22/23 15:34 74 18 110/71 11/23/23 13:43 89 05/22/23 13:40 82 20 110/71 05/22/23 13:40 82 20 05/22/23 12:56 36.1 C L 96 H 20 119/74 BP Pulse Ox O2 Del Method O2 Flow Rate 05/22/23 18:35 144/81 H 91 Room Air 05/22/23 15:34 98 05/22/23 13:43 05/22/23 13:40 96 Nasal Cannula 1 05/22/23 13:40 96 1 05/22/23 12:56 91 Nasal Cannula 1 PG Care Time/CCT Total # of Minutes Spent Total Time Spent with Patient: Total time spent is greater than 50% in coordination of care (as documented) at patient's floor/unit and/or counseling patient: Coding Level of Care Code 49247 INT INP/OBS CARE 75MIN Diagnoses Diverticulitis of large intestine with complication K57.32 Fistula L98.8
[2023-05-22] MEDS ORDERED: INSULIN ASPART PER UNIT CHARGE SC SCH (21:00)
[2023-05-22] MEDS: ACETAMINOPHEN 325 MG TAB PO PRN (21:36)
[2023-05-22] MEDS: ALBUTEROL HFA 8 GM INHALER INH PRN (21:48)
[2023-05-22] MEDS: SIMETHICONE 80 MG CHEW PO PRN (21:51)
[2023-05-22] MEDS: D5W AND NSS 1,000 ML IV SCH (22:30)
[2023-05-23] MEDS ORDERED: Nursing to Pharmacy Communication SCH ×2 (03:00→11:15)
[2023-05-23] MEDS: PIPERACILLIN/TAZOBACTAM 4.5 GM in DEXTROSE 5% MINI-B 100 ML IV SCH ×3 (03:04→20:30)
[2023-05-23] MEDS ORDERED: INSULIN ASPART PER UNIT CHARGE SC SCH (06:00)
--- NOTE | 2023-05-23 06:20 | Surgery Progress Note ---
Date of Service May 23, 2023 Assessment & Plan (1) Diverticulitis of large intestine with complication: Plan: The patient has been admitted on the hospitalist service. From a surgical perspective we recommend proceeding as follows: Continue analgesics Continue antiemetics Continue n.p.o. status with exception of ice chips. Consideration can be given to resuming diet beginning with clear liquids as patient shows some clinical improvement Continue IV fluids while n.p.o. Check a.m. labs when available Continue antibiotics in form of Zosyn Additional recommendations be forthcoming based on her clinical course as unfolds (2) Fistula: Admission and Anticipated Discharge Date Admission Date: May 22, 2023 Supervising Physician Co-Signing Physician Notes Patient seen and examined, labs and imaging reviewed, agree with above. 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 She is feeling better, still having some left lower quadrant tenderness, urine is less painful and she denies any pneumaturia today. On exam afebrile with stable vitals. Abdomen soft, minimally tender to palpation in the left lower quadrant suprapubic region. WBC downtrending. 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 At this point there is no urgent surgical indication. Recommend treating her acute diverticulitis and UTI with antibiotics. She may have clear liquids that she continues to improve and then slowly advance to a low fiber diet. She will likely need to remain on suppressive antibiotics. She should have an outpatient colonoscopy as she is due for 1. Also urology should be consulted. She will likely need elective sigmoid resection and repair of fistula by colorectal surgery at a tertiary center. General surgery will continue to follow. Subjective Patient is currently resting comfortably in bed. She notes that there is really been no change in her clinical status since my visit last night. She continues to have pain in her lower abdomen greatest in the suprapubic region. She denies any fevers, shakes, or chills. No nausea or vomiting has been noted. Physical Exam Gastrointestinal (Abdomen): Abdomen is soft and nonrigid without rebound tenderness or guarding. The patient continues to have pain/pressure with palpation in the lower abdomen greatest in the suprapubic region. Results & Data Vital Signs (Past 12 Hours) Vital Signs Temp Pulse Resp BP Pulse Ox O2 Del Method 05/22/23 21:50 75 20 92 Room Air 05/22/23 21:09 36.3 C L 84 20 126/75 94 Room Air 05/22/23 18:35 36.3 C L 82 16 144/81 H 91 Room Air PG Care Time/CCT Total # of Minutes Spent Total Time Spent with Patient: Total time spent is greater than 50% in coordination of care (as documented) at patient's floor/unit and/or counseling patient: Coding Level of Care Code 20166 SUB INP/OBS CARE 07/24MIN Diagnoses Diverticulitis of large intestine with complication K57.32 Fistula L98.8
[2023-05-23] MEDS: FLECAINIDE ACETATE 100 MG TABLET PO SCH ×2 (06:23→18:14)
[2023-05-23] MEDS: ACETAMINOPHEN 325 MG TAB PO PRN ×3 (06:23→22:13)
[2023-05-23] MEDS: ENOXAPARIN INJ 40 MG/0.4 ML SYR SQ SCH ×2 (06:24→19:50)
[2023-05-23 06:59] LABS: Hematocrit (blood only) 31.6 % (37.0-47.0); Hemoglobin 9.8 g/dl (12.0-16.0); Mean Corpuscular Hemoglobin 27.1 pg (25.0-34.0); Mean Corpuscular Volume 87.3 fL (80.0-100.0); Mean Platelet Volume 9.4 fL (9.4-12.4); Platelet Count 386 K/uL (130-400); RDW Coefficient of Variation 13.8 % (11.5-14.5); RDW Standard Deviation 44.1 fL (36.4-46.3); Red Blood Count 3.62 M/uL (4.20-5.40); White Blood Count 10.86 K/ul (4.8-10.8)
[2023-05-23 07:24] LABS: BUN Creatinine Ratio 21.4 (10-20); Calcium 9.1 mg/dl (8.6-10.3); Creatinine Clr Calc Pharmacy 73.3 ml/min; Est GFR (African American) 95.5 ml/min; Est GFR (Non-African American) 82.4 ml/min; Phosphorus 4.3 mg/dl (2.5-4.9); Potassium 4.1 mmol/L (3.5-5.1)
[2023-05-23 07:32] LABS: Estimated Average Glucose 174 mg/dl; Hemoglobin A1C 7.7 % (4.5-5.6)
[2023-05-23] MEDS: VERAPAMIL HCL 180 MG TABCR PO SCH (09:15)
[2023-05-23] MEDS: ASPIRIN 81 MG ECTAB PO SCH (09:15)
[2023-05-23] MEDS: CHOLECALCIFEROL 1,000 UNITS 25 MCG TAB PO SCH (09:16)
[2023-05-23] MEDS: SPIRONOLACTONE 12.5 MG TAB PO SCH (09:16)
[2023-05-23] MEDS: FLUTICASONE/VILANTEROL 200/25MCG 14 PUFFS/INHALER INH SCH (09:16)
[2023-05-23] MEDS: FAMOTIDINE 20 MG TAB PO SCH ×2 (09:16→20:30)
[2023-05-23] MEDS: INSULIN ASPART PER UNIT CHARGE SC SCH ×3 (12:46→21:27)
[2023-05-23] MEDS: D5W AND NSS 1,000 ML IV SCH (12:48)
--- NOTE | 2023-05-23 12:56 | Hospitalist Progress Note ---
Date of Service May 23, 2023 Assessment & Plan (1) Diverticulitis of large intestine with complication: Plan Ms. 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 Surgery and Urology on consult at this time--plan to advance diet as tolerated and continue IV antibiotics in interim. Given complex presentation with fistula formation, ID consulted to inquire about need/appropriate suppresive antibiotics/duration of current regimen at this time. #Complicated diverticulitis with abscess and ?colovesical fistula -Failed course of Augmentin as OP -continue zosyn q 8hours -CLD at this time, AAT to low fiber -Surgery/Urology consults: no acute surgical intervention, plan for OP c-scope when flare resolves, may require elective procedure in future, no cysoscopy -Tylenol q8h 1000g pain control prn -ID consult to discuss duration of IV abx and suppressive regimen #Chronic diarrhea/IBS -CTM, consider dicyclomine once flare resolves #Chronic HFpEF #Right Heart Failure -Home: Losartan 100mg, Spironolactone 12.5mg -Decline lasix as OP, will follow fluid status while inpatient -Heart Healthy diet, low fiber when able -Hold losartan given relatively soft pressures -Daily weights #Paroxysmal SVT/AVNRT -Continue verapamil 180mg daily and flecainde 50mg BID #DMTII -A1C 7.7%, on home metformin SSI while admitted #ASCVD #Prior CEA -Continue ASA -Intolerant to statins, holding zetia 2/2 GI issues #Chronic hypoxic respiratory failure #MASSIMO -Wean O2 >92% -CPAP #Chronic Leukocytosis #MGUS Stable, follows Dr Muniz DVT enoxaprin Admit to med surg for IV abx for diverticulitis Admission and Anticipated Discharge Date Admission Date: May 22, 2023 Subjective Patient states that she has noticed decrease "gurwinder" output on pads She notes some reduction in discomfort but not a notable increase Denies nausea, vomiting Endorses some appetite Review of Systems Review of Systems: All systems reviewed & are unremarkable except as noted in Subjective Physical Exam Constitutional: WD/WN, vitals as above Cardiovascular: RRR, no murmur, no edema Gastrointestinal (Abdomen): nondistended, tender in LLq/suprapubic regions Results & Data Results & Data Vital Signs (Past 12 Hours) Vital Signs Temp Pulse Resp BP Pulse Ox O2 Del Method 05/23/23 07:39 36.4 C L 70 16 122/70 92 Room Air Laboratory Results Short CBC 05/22/23 05/23/23 Range/Units 13:25 06:11 WBC 12.46 H 10.86 H (4.8-10.8) K/ul Hgb 11.1 L 9.8 L (12.0-16.0) g/dl Hct 36.1 L 31.6 L (37.0-47.0) % Plt Count 431 H 386 (130-400) K/uL BMP 05/22/23 05/23/23 13:25 06:11 Sodium 137 139 Potassium 4.3 4.1 Chloride 103 106 Carbon Dioxide 25 25 BUN 21 15 Creatinine 0.79 0.70 Glucose 192 H 192 H Calcium 10.1 9.1 Liver Function 05/22/23 Range/Units 13:25 Total Bilirubin 0.6 (0.2-1.0) mg/dl AST 15 (13-39) U/L ALT 14 (7-52) U/L Alkaline Phosphatase 117 H (34-104) U/L Albumin 4.0 (3.4-5.0) gm/dl Urine 05/22/23 Range/Units 14:50 Urine Color Yellow Urine Appearance Cloudy A (Clear) Urine pH 5.5 (4.5-7.5) Ur Specific [place] 1.015 (1.000-1.030) Urine Protein Negative (Negative) Urine Glucose (UA) Negative (Negative) Medications Administered Home Medications Medication Instructions Recorded Confirmed Last Taken aspirin 81 mg tablet,delayed 81 mg PO QAM 05/19/18 05/22/23 1 Day Ago release (Andreas Low Dose Aspirin) ~05/21/23 cholecalciferol (vitamin D3) 25 1,000 unit PO QAM 05/19/18 05/22/23 1 Day Ago mcg (1,000 unit) capsule (Vitamin ~05/21/23 D3) famotidine 20 mg tablet (Pepcid) 20 mg PO BID 05/19/18 05/22/23 1 Day Ago ~05/21/23 losartan 100 mg tablet 100 mg PO QAM 05/19/18 05/22/23 1 Day Ago ~05/21/23 metformin 500 mg tablet 500 mg PO QAM 05/19/18 05/22/23 1 Day Ago ~05/21/23 multivitamin 1 tab PO QAM 05/19/18 05/22/23 08/29/22 09:00 fluticasone furoate 200 1 inh inhalation QAM 11/18/18 05/22/23 1 Day Ago mcg-vilanterol 25 mcg/dose ~05/21/23 inhalation powder (Breo Ellipta) albuterol sulfate 90 mcg/actuation 2 puff inhalation Q4H PRN 09/18/19 05/22/23 08/29/22 20:00 aerosol inhaler (ProAir HFA) Cough,SOB or Wheeze fexofenadine 180 mg tablet 180 mg PO QPM 11/28/20 05/22/23 1 Day Ago ~05/21/23 levalbuterol HCl 0.63 mg/3 mL 0.63 mg inhalation DIRECTED PRN 11/28/20 05/22/23 08/23/22 solution for nebulization (Xopenex) Shortness Of Breath Or Wheezing spironolactone 25 mg tablet 12.5 mg PO QAM 10/12/21 05/22/23 1 Day Ago ~05/21/23 verapamil 180 mg tablet,extended 180 mg PO QAM 12/20/21 05/22/23 1 Day Ago release ~05/21/23 flecainide 50 mg tablet 50 mg PO Q12H 08/26/22 05/22/23 1 Day Ago ~05/21/23 simethicone 180 mg capsule 180 mg PO BID PRN STOMACH PAIN 08/26/22 05/22/23 08/29/22 20:00 Active Medications Generic Name Dose Route Start Last Admin Trade Name Freq PRN Reason Stop Dose Admin Acetaminophen 650 mg 05/22/23 21:25 05/23/23 06:23 Acetaminophen 325 Mg Tab PO 06/21/23 21:24 650 mg Q4H PRN Administration Pain or Fever Albuterol 2 puffs 05/22/23 18:35 05/22/23 21:48 Albuterol Hfa 8 Gm Inhaler INH 06/21/23 18:34 2 puffs Q4H PRN Administration Cough,SOB or Wheeze Aspirin 81 mg 05/23/23 09:00 05/23/23 09:15 Aspirin 81 Mg Ectab PO 06/22/23 08:59 81 mg QAM GHASSAN Administration Enoxaparin Sodium 40 mg 05/22/23 19:00 05/23/23 06:24 Enoxaparin Inj 40 Mg/0.4 Ml Syr SQ 06/21/23 18:59 40 mg Q12H GHASSAN Administration Famotidine 20 mg 05/22/23 21:00 05/23/23 09:16 Famotidine 20 Mg Tab PO 06/21/23 20:59 20 mg BID GHASSAN Administration Fexofenadine HCl 180 mg 05/22/23 21:00 05/22/23 19:33 Fexofenadine Hcl 180 Mg Tab PO 06/21/23 20:59 180 mg QPM GHASSAN Administration Flecainide Acetate 50 mg 05/22/23 18:35 05/23/23 06:23 Flecainide Acetate 100 Mg Tablet PO 06/21/23 18:00 50 mg Q12H GHASSAN Administration Fluticasone/Vilanterol 1 puffs 05/23/23 09:00 05/23/23 09:16 Fluticasone/Vilanterol 200/25mcg 14 Puffs/Inhaler INH 06/22/23 08:59 1 puffs QAM GHASSAN Administration Piperacillin Sod/Tazobactam 100 mls @ 25 mls/hr 05/22/23 20:00 05/23/23 12:46 Sod 4.5 gm/ Dextrose IV 06/01/23 19:59 25 mls/hr Q8H GHASSAN Administration Protocol Insulin Aspart 0 units 05/23/23 11:30 05/23/23 12:46 Insulin Aspart Per Unit Charge SC 06/22/23 11:29 3 units ACHS GHASSAN Administration Simethicone 80 mg 05/22/23 18:35 05/22/23 21:51 Simethicone 80 Mg Chew PO 06/21/23 18:34 80 mg Q4H PRN Administration STOMACH PAIN Spironolactone 12.5 mg 05/23/23 09:00 05/23/23 09:16 Spironolactone 12.5 Mg Tab PO 06/22/23 08:59 12.5 mg QAM GHASSAN Administration Verapamil HCl 180 mg 05/23/23 09:00 05/23/23 09:15 Verapamil Hcl 180 Mg Tabcr PO 06/22/23 08:59 180 mg QAM GHASSAN Administration Vitamin D 1,000 units 05/23/23 09:00 05/23/23 09:16 Cholecalciferol 1,000 Units 25 Mcg Tab PO 06/22/23 08:59 1,000 units QAM GHASSAN Administration
[2023-05-23] MEDS: FEXOFENADINE HCL 180 MG TAB PO SCH (20:30)
[2023-05-23] MEDS: SIMETHICONE 80 MG CHEW PO PRN (20:31)
[2023-05-24] MEDS: PIPERACILLIN/TAZOBACTAM 4.5 GM in DEXTROSE 5% MINI-B 100 ML IV SCH ×3 (03:50→20:00)
--- NOTE | 2023-05-24 05:37 | Surgery Progress Note ---
Date of Service May 24, 2023 Assessment & Plan (1) Diverticulitis of large intestine with complication: Plan: The patient has been admitted on the hospitalist service. From a surgical perspective we recommend proceeding as follows: Continue analgesics Continue antiemetics Continue clear liquid diet. Can consider advancing diet further once patient's abdominal discomfort improves further Continue antibiotics in the form of Zosyn Check a.m. labs when available As noted, patient may require surgical intervention once her acute infection has been adequately controlled. Surgical invention would likely need to be performed by colorectal specialist (2) Fistula: Admission and Anticipated Discharge Date Admission Date: May 22, 2023 Supervising Physician Co-Signing Physician Notes Patient seen and examined, labs and imaging reviewed, agree with above. 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 Continues to feel better, still having some left lower quadrant tenderness, urine is less painful and she denies any pneumaturia today. On exam afebrile with stable vitals. Abdomen soft, minimally tender to palpation in the left lower quadrant suprapubic region. WBC stable. At this point there is no urgent surgical indication. Recommend treating her acute diverticulitis and UTI with antibiotics. Continue antibiotics, slowly advance to low fiber diet, patient will eventually need colonoscopy and cystoscopy with colorectal follow- up as an outpatient. Subjective Patient is currently sitting up at the edge of the bed. She denies any fevers, shakes, or chills. She denies any nausea or vomiting but does note that her lower abdomen particular in the suprapubic region is sore/tender. Her diet has been readvanced to clear liquids which she is tolerating. She feels as though that her urine which was discolored previously has started to clear somewhat. Physical Exam Gastrointestinal (Abdomen): Abdomen is soft and nondistended. There is no rebound tenderness or guarding but patient did have pain with palpation of the lower abdomen greatest in the suprapubic region. Results & Data Vital Signs (Past 12 Hours) Vital Signs Temp Pulse Resp BP Pulse Ox O2 Del Method 05/23/23 20:30 Room Air, Nasal CPAP 05/23/23 19:54 36.4 C L 75 18 132/71 92 Room Air PG Care Time/CCT Total # of Minutes Spent Total Time Spent with Patient: Total time spent is greater than 50% in coordination of care (as documented) at patient's floor/unit and/or counseling patient: Coding Level of Care Code 67599 SUB INP/OBS CARE Diagnoses Diverticulitis of large intestine with complication K57.32 Fistula L98.8
[2023-05-24] MEDS: FLECAINIDE ACETATE 100 MG TABLET PO SCH ×2 (06:18→18:22)
[2023-05-24] MEDS: ENOXAPARIN INJ 40 MG/0.4 ML SYR SQ SCH ×2 (06:19→18:24)
[2023-05-24] MEDS: ACETAMINOPHEN 325 MG TAB PO PRN ×4 (06:21→23:09)
[2023-05-24 06:36] LABS: Hematocrit (blood only) 35.3 % (37.0-47.0); Hemoglobin 11.1 g/dl (12.0-16.0); Mean Corpuscular Hemoglobin 27.3 pg (25.0-34.0); Mean Corpuscular Hgb Conc 31.4 g/dL (32.0-36.0); Mean Corpuscular Volume 86.7 fL (80.0-100.0); Mean Platelet Volume 9.5 fL (9.4-12.4); Platelet Count 437 K/uL (130-400); RDW Coefficient of Variation 13.9 % (11.5-14.5); RDW Standard Deviation 43.8 fL (36.4-46.3); Red Blood Count 4.07 M/uL (4.20-5.40); White Blood Count 11.21 K/ul (4.8-10.8)
[2023-05-24 06:47] LABS: BUN Creatinine Ratio 13.2 (10-20); Calcium 9.6 mg/dl (8.6-10.3); Creatinine Clr Calc Pharmacy 67.5 ml/min; Est GFR (African American) 86.5 ml/min; Est GFR (Non-African American) 74.6 ml/min; Magnesium 2.1 mg/dl (1.7-2.4); Phosphorus 3.8 mg/dl (2.5-4.9)
[2023-05-24] MEDS: INSULIN ASPART PER UNIT CHARGE SC SCH ×4 (09:17→21:21)
[2023-05-24] MEDS: SIMETHICONE 80 MG CHEW PO PRN ×2 (09:18→20:02)
[2023-05-24] MEDS: ASPIRIN 81 MG ECTAB PO SCH (09:18)
[2023-05-24] MEDS: CHOLECALCIFEROL 1,000 UNITS 25 MCG TAB PO SCH (09:19)
[2023-05-24] MEDS: FAMOTIDINE 20 MG TAB PO SCH ×2 (09:19→20:01)
[2023-05-24] MEDS: FLUTICASONE/VILANTEROL 200/25MCG 14 PUFFS/INHALER INH SCH (09:19)
[2023-05-24] MEDS: SPIRONOLACTONE 12.5 MG TAB PO SCH (09:20)
[2023-05-24] MEDS: VERAPAMIL HCL 180 MG TABCR PO SCH (09:20)
[2023-05-24] MEDS: ADVANCED PROBIOTIC 1250 MG CAPSULE PO SCH (12:34)
--- NOTE | 2023-05-24 15:11 | Hospitalist Progress Note ---
Date of Service May 24, 2023 Assessment & Plan (1) Diverticulitis of large intestine with complication: Plan Ms. 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 Surgery and Urology on consult at this time--plan to advance diet as tolerated and continue IV antibiotics in interim. Given complex presentation with fistula formation, ID consulted to inquire about need/appropriate suppresive antibiotics/duration of current regimen at this time. #Complicated diverticulitis with abscess and ?colovesical fistula -Failed course of Augmentin as OP -continue zosyn q 8hours -CLD at this time -Surgery/Urology consults: no acute surgical intervention, plan for OP c-scope when flare resolves, may require elective procedure in future, no cysoscopy -Tylenol q8h 1000g pain control prn -ID consult to discuss duration of IV abx and suppressive regimen -Pending abx recommendation -Will advance diet to low fiber as tolerated #Chronic diarrhea/IBS -CTM, trial probiotics, historically has not responded well with bentyl #Chronic HFpEF #Right Heart Failure -Home: Losartan 100mg, Spironolactone 12.5mg -Decline lasix as OP, will follow fluid status while inpatient -Heart Healthy diet, low fiber when able -Hold losartan given relatively soft pressures -Daily weights #Paroxysmal SVT/AVNRT -Continue verapamil 180mg daily and flecainide 50mg BID #DMTII -A1C 7.7%, on home metformin SSI while admitted #ASCVD #Prior CEA -Continue ASA -Intolerant to statins, holding zetia 2/2 GI issues #Chronic hypoxic respiratory failure #MASSIMO -Wean O2 >92% -CPAP #Chronic Leukocytosis #MGUS Stable, follows Dr Muniz DVT enoxaprin Admit to med surg for IV abx for diverticulitis Admission and Anticipated Discharge Date Admission Date: May 22, 2023 Subjective NAEO Patient states that she has general improvement and feels current symptoms may be more related to IBS rather than strictly diverticular pain Denies nausea, vomiting or other acute symptoms at this time Pending ID recommendations for suppressive regimen if warranted Review of Systems Review of Systems: All systems reviewed & are unremarkable except as noted in Subjective Physical Exam Constitutional: WD/WN, vitals as above Cardiovascular: RRR, no murmur, no edema Gastrointestinal (Abdomen): soft, tender to deep palpation LLQ/suprapubic, but less so than day prior Results & Data Results & Data Vital Signs (Past 12 Hours) Vital Signs Temp Pulse Resp BP Pulse Ox O2 Del Method 05/24/23 08:19 36.3 C L 74 16 137/81 94 Room Air 05/24/23 08:00 Room Air, CPAP
[2023-05-24 18:00] LABS: Adenovirus F 40/41 PCR Not Detected (NotDetected); Astrovirus PCR Not Detected (NotDetected); Campylobacter PCR Not Detected (NotDetected); Cryptosporidium PCR Not Detected (NotDetected); Cyclospora cayetanensis PCR Not Detected (NotDetected); Entamoeba histolytica PCR Not Detected (NotDetected); Enteroaggregative E.coli(EAEC) Not Detected (NotDetected); Enteropathogenic E.coli (EPEC) Not Detected (NotDetected); Enterotoxigenic E.coli (ETEC) Not Detected (NotDetected); Giardia lamblia PCR Not Detected (NotDetected); Norovirus GI/GII PCR Not Detected (NotDetected); Plesiomonas shigelloides PCR Not Detected (NotDetected); Rotavirus A PCR Not Detected (NotDetected); Salmonella PCR Not Detected (NotDetected); Sapovirus PCR Not Detected (NotDetected); Shiga-like Toxin E.coli (STEC) Not Detected (NotDetected); Shigella/Enteroinvasive E.coli Not Detected (NotDetected); Vibrio cholerae PCR Not Detected (NotDetected); Vibrio species PCR Not Detected (NotDetected); Yersinia enterocolitica PCR Not Detected (NotDetected)
[2023-05-24] MEDS: FEXOFENADINE HCL 180 MG TAB PO SCH (20:01)
[2023-05-25] MEDS: PIPERACILLIN/TAZOBACTAM 4.5 GM in DEXTROSE 5% MINI-B 100 ML IV SCH ×3 (04:57→20:44)
--- NOTE | 2023-05-25 05:22 | Surgery Progress Note ---
Date of Service May 25, 2023 Assessment & Plan (1) Diverticulitis of large intestine with complication: Plan: The patient has been admitted on the hospitalist service. From a surgical perspective we recommend proceeding as follows: Continue analgesics Continue antiemetics Slowly advance to low fiber diet Continue antibiotics in the form of Zosyn while hospitalized Check a.m. labs when available As noted, patient may require surgical intervention once her acute infection has been adequately controlled and will likely need to be formed by colorectal specialist (2) Fistula: Admission and Anticipated Discharge Date Admission Date: May 22, 2023 Supervising Physician Co-Signing Physician Notes Patient seen and examined, labs and imaging reviewed, agree with above. 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 With copious loose stools. Also does not know if there is some stool coming from her urethra or her vagina. On exam afebrile with stable vitals. Abdomen soft, minimally tender to palpation in the left lower quadrant suprapubic region. WBC normalized. At this point there is no urgent surgical indication. Recommend treating her acute diverticulitis and UTI with antibiotics. Continue antibiotics, low fiber diet, patient will eventually need colonoscopy and cystoscopy with colorectal follow-up as an outpatient. If symptoms worsen or fail to improve, may need diverting colostomy. Subjective Patient is resting comfortably in bed at this time. She denies any fevers, shakes, or chills. She denies any nausea or vomiting. She notes her lower abdominal pain has slightly improved. She notes that she is having multiple loose bowel movements. Physical Exam Gastrointestinal (Abdomen): Abdomen is soft and nondistended. No rigidity is noted. There is minimal pain noted with palpation at the time of my exam. Results & Data Vital Signs (Past 12 Hours) Vital Signs Temp Pulse Resp BP BP Pulse Ox O2 Del Method 05/24/23 20:06 36.5 C 74 18 144/75 H 93 Room Air 05/24/23 20:01 Room Air, Nasal Cannula, Nasal CPAP 05/24/23 18:21 66 118/76 O2 Flow Rate 05/24/23 20:06 05/24/23 20:01 2 05/24/23 18:21 PG Care Time/CCT Total # of Minutes Spent Total Time Spent with Patient: Total time spent is greater than 50% in coordination of care (as documented) at patient's floor/unit and/or counseling patient: Coding Level of Care Code 54512 SUB INP/OBS CARE Diagnoses Diverticulitis of large intestine with complication K57.32 Fistula L98.8
[2023-05-25] MEDS: FLECAINIDE ACETATE 100 MG TABLET PO SCH ×2 (06:22→18:22)
[2023-05-25] MEDS: ENOXAPARIN INJ 40 MG/0.4 ML SYR SQ SCH ×2 (06:23→18:22)
[2023-05-25 06:50] LABS: Hematocrit (blood only) 33.1 % (37.0-47.0); Hemoglobin 9.9 g/dl (12.0-16.0); Mean Corpuscular Hemoglobin 26.6 pg (25.0-34.0); Mean Corpuscular Hgb Conc 29.9 g/dL (32.0-36.0); Mean Platelet Volume 9.4 fL (9.4-12.4); Platelet Count 367 K/uL (130-400); RDW Coefficient of Variation 13.6 % (11.5-14.5); RDW Standard Deviation 44.2 fL (36.4-46.3); Red Blood Count 3.72 M/uL (4.20-5.40)
[2023-05-25 07:11] LABS: BUN Creatinine Ratio 12.2 (10-20); Calcium 9.2 mg/dl (8.6-10.3); Creatinine Clr Calc Pharmacy 70.1 ml/min; Est GFR (African American) 89.3 ml/min; Est GFR (Non-African American) 77.1 ml/min; Magnesium 2.1 mg/dl (1.7-2.4); Phosphorus 4.3 mg/dl (2.5-4.9); Potassium 3.7 mmol/L (3.5-5.1)
[2023-05-25] MEDS: SIMETHICONE 80 MG CHEW PO PRN ×3 (08:44→20:46)
[2023-05-25] MEDS: FLUTICASONE/VILANTEROL 200/25MCG 14 PUFFS/INHALER INH SCH (08:44)
[2023-05-25] MEDS: SPIRONOLACTONE 12.5 MG TAB PO SCH (08:44)
[2023-05-25] MEDS: ADVANCED PROBIOTIC 1250 MG CAPSULE PO SCH (08:44)
[2023-05-25] MEDS: FAMOTIDINE 20 MG TAB PO SCH ×2 (08:44→20:45)
[2023-05-25] MEDS: CHOLECALCIFEROL 1,000 UNITS 25 MCG TAB PO SCH (08:44)
[2023-05-25] MEDS: ASPIRIN 81 MG ECTAB PO SCH (08:44)
[2023-05-25] MEDS: VERAPAMIL HCL 180 MG TABCR PO SCH (08:45)
[2023-05-25] MEDS: INSULIN ASPART PER UNIT CHARGE SC SCH ×4 (08:56→21:47)
[2023-05-25] MEDS: ACETAMINOPHEN 325 MG TAB PO PRN ×3 (09:05→22:48)
[2023-05-25] MEDS: LOSARTAN POTASSIUM 25 MG TAB PO SCH (11:37)
--- NOTE | 2023-05-25 13:29 | Hospitalist Progress Note ---
Date of Service May 25, 2023 Assessment & Plan (1) Diverticulitis of large intestine with complication: Plan Ms. 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 Surgery and Urology on consult at this time--plan to advance diet as tolerated and continue IV antibiotics in interim. Given complex presentation with fistula formation, ID consulted to inquire about need/appropriate suppressive antibiotics/duration of current regimen at this time. Will likely get ID recommendations come Friday. #Complicated diverticulitis with abscess and ?colovesical fistula -Failed course of Augmentin as OP -continue zosyn q 8hours -CLD at this time -Surgery/Urology consults: no acute surgical intervention, plan for OP c-scope when flare resolves, may require elective procedure in future, no cystoscopy -Tylenol q8h 1000g pain control prn -ID consult to discuss duration of IV abx and suppressive regimen -Pending abx recommendation from ID--consult placed -Will advance diet to low fiber #Chronic diarrhea/IBS -CTM, trial probiotics, historically has not responded well with bentyl #Chronic HFpEF #Right Heart Failure -Home: Losartan 100mg, Spironolactone 12.5mg -Decline lasix as OP, will follow fluid status while inpatient -Heart Healthy diet, low fiber when able -Resume lose dose losartan given relatively soft pressures, increase as bella erated -Daily weights #Paroxysmal SVT/AVNRT -Continue flecainide 50mg BID -Wishes to discontinue verapamil 180mg daily as PCP was transitioning to Metoprolol -Start Metoprolol XL 25 #DMTII -A1C 7.7%, on home metformin SSI while admitted #ASCVD #Prior CEA -Continue ASA -Intolerant to statins, holding zetia 2/2 GI issues #Chronic hypoxic respiratory failure #MASSIMO -Wean O2 >92% -CPAP #Chronic Leukocytosis #MGUS Stable, follows Dr Muniz DVT enoxaprin Admit to med surg for IV abx for diverticulitis Admission and Anticipated Discharge Date Admission Date: May 22, 2023 Subjective Reports increased improvement, but noticing leakage from bladder given increased diarrhea though pain is improved. Patient reports stress over idea of colostomy given possible inability to care for self as she cannot reach likely location of ostomy site Review of Systems Review of Systems: All systems reviewed & are unremarkable except as noted in Subjective Physical Exam Constitutional: WD/WN, vitals as above Respiratory: normal respiratory effort, lungs clear to auscultation Cardiovascular: RRR, no murmur, no edema Gastrointestinal (Abdomen): normal bowel sounds, soft, nontender, no hepatosplenomegaly Results & Data Results & Data Vital Signs (Past 12 Hours) Vital Signs Temp Pulse Resp BP BP Pulse Ox O2 Del Method 05/25/23 08:30 75 149/74 H 05/25/23 07:38 36.8 C 67 17 144/80 H 96 Room Air Laboratory Results Short CBC 05/25/23 Range/Units 05:59 WBC 8.30 (4.8-10.8) K/ul Hgb 9.9 L (12.0-16.0) g/dl Hct 33.1 L (37.0-47.0) % Plt Count 367 (130-400) K/uL BMP 05/25/23 05:59 Sodium 140 Potassium 3.7 Chloride 107 Carbon Dioxide 26 BUN 9 Creatinine 0.74 Glucose 123 H Calcium 9.2 Medications Administered Home Medications Medication Instructions Recorded Confirmed Last Taken aspirin 81 mg tablet,delayed 81 mg PO QAM 05/19/18 05/22/23 1 Day Ago release (Andreas Low Dose Aspirin) ~05/21/23 cholecalciferol (vitamin D3) 25 1,000 unit PO QAM 05/19/18 05/22/23 1 Day Ago mcg (1,000 unit) capsule (Vitamin ~05/21/23 D3) famotidine 20 mg tablet (Pepcid) 20 mg PO BID 05/19/18 05/22/23 1 Day Ago ~05/21/23 losartan 100 mg tablet 100 mg PO QAM 05/19/18 05/22/23 1 Day Ago ~05/21/23 metformin 500 mg tablet 500 mg PO QAM 05/19/18 05/22/23 1 Day Ago ~05/21/23 multivitamin 1 tab PO QAM 05/19/18 05/22/23 08/29/22 09:00 fluticasone furoate 200 1 inh inhalation QAM 11/18/18 05/22/23 1 Day Ago mcg-vilanterol 25 mcg/dose ~05/21/23 inhalation powder (Breo Ellipta) albuterol sulfate 90 mcg/actuation 2 puff inhalation Q4H PRN 09/18/19 05/22/23 08/29/22 20:00 aerosol inhaler (ProAir HFA) Cough,SOB or Wheeze fexofenadine 180 mg tablet 180 mg PO QPM 11/28/20 05/22/23 1 Day Ago ~05/21/23 levalbuterol HCl 0.63 mg/3 mL 0.63 mg inhalation DIRECTED PRN 11/28/20 05/22/23 08/23/22 solution for nebulization (Xopenex) Shortness Of Breath Or Wheezing spironolactone 25 mg tablet 12.5 mg PO QAM 10/12/21 05/22/23 1 Day Ago ~05/21/23 verapamil 180 mg tablet,extended 180 mg PO QAM 12/20/21 05/22/23 1 Day Ago release ~05/21/23 flecainide 50 mg tablet 50 mg PO Q12H 08/26/22 05/22/23 1 Day Ago ~05/21/23 simethicone 180 mg capsule 180 mg PO BID PRN STOMACH PAIN 08/26/22 05/22/23 08/29/22 20:00 Active Medications Generic Name Dose Route Start Last Admin Trade Name Freq PRN Reason Stop Dose Admin Acetaminophen 650 mg 05/22/23 21:25 05/25/23 09:05 Acetaminophen 325 Mg Tab PO 06/21/23 21:24 650 mg Q4H PRN Administration Pain or Fever Albuterol 2 puffs 05/22/23 18:35 05/22/23 21:48 Albuterol Hfa 8 Gm Inhaler INH 06/21/23 18:34 2 puffs Q4H PRN Administration Cough,SOB or Wheeze Aspirin 81 mg 05/23/23 09:00 05/25/23 08:44 Aspirin 81 Mg Ectab PO 06/22/23 08:59 81 mg QAM GHASSAN Administration Enoxaparin Sodium 40 mg 05/22/23 19:00 05/25/23 06:23 Enoxaparin Inj 40 Mg/0.4 Ml Syr SQ 06/21/23 18:59 40 mg Q12H GHASSAN Administration Famotidine 20 mg 05/22/23 21:00 05/25/23 08:44 Famotidine 20 Mg Tab PO 06/21/23 20:59 20 mg BID GHASSAN Administration Fexofenadine HCl 180 mg 05/22/23 21:00 05/24/23 20:01 Fexofenadine Hcl 180 Mg Tab PO 06/21/23 20:59 180 mg QPM GHASSAN Administration Flecainide Acetate 50 mg 05/22/23 18:35 05/25/23 06:22 Flecainide Acetate 100 Mg Tablet PO 06/21/23 18:00 50 mg Q12H GHASSAN Administration Fluticasone/Vilanterol 1 puffs 05/23/23 09:00 05/25/23 08:44 Fluticasone/Vilanterol 200/25mcg 14 Puffs/Inhaler INH 06/22/23 08:59 1 puffs QAM GHASSAN Administration Piperacillin Sod/Tazobactam 100 mls @ 25 mls/hr 05/22/23 20:00 05/25/23 12:23 Sod 4.5 gm/ Dextrose IV 06/01/23 19:59 25 mls/hr Q8H GHASSAN Administration Protocol Insulin Aspart 0 units 05/23/23 11:30 05/25/23 12:20 Insulin Aspart Per Unit Charge SC 06/22/23 11:29 Not Given ACHS GHASSAN Lactobacillus Acidophilus 2 cap 05/24/23 09:45 05/25/23 08:44 Advanced Probiotic 1250 Mg Capsule PO 06/23/23 09:44 2 cap DAILY GHASSAN Administration Losartan Potassium 25 mg 05/25/23 10:30 05/25/23 11:37 Losartan Potassium 25 Mg Tab PO 06/24/23 10:29 25 mg QAM GHASSAN Administration Simethicone 80 mg 05/22/23 18:35 05/25/23 08:44 Simethicone 80 Mg Chew PO 06/21/23 18:34 80 mg Q4H PRN Administration STOMACH PAIN Spironolactone 12.5 mg 05/23/23 09:00 05/25/23 08:44 Spironolactone 12.5 Mg Tab PO 06/22/23 08:59 12.5 mg QAM GHASSAN Administration Verapamil HCl 180 mg 05/23/23 09:00 05/25/23 08:45 Verapamil Hcl 180 Mg Tabcr PO 06/22/23 08:59 180 mg QAM GHASSAN Administration Vitamin D 1,000 units 05/23/23 09:00 05/25/23 08:44 Cholecalciferol 1,000 Units 25 Mcg Tab PO 06/22/23 08:59 1,000 units QAM GHASSAN Administration
[2023-05-25] MEDS: FEXOFENADINE HCL 180 MG TAB PO SCH (20:45)
[2023-05-25] MEDS: ALBUTEROL HFA 8 GM INHALER INH PRN (21:10)
[2023-05-26] MEDS: PIPERACILLIN/TAZOBACTAM 4.5 GM in DEXTROSE 5% MINI-B 100 ML IV SCH ×3 (04:56→20:45)
[2023-05-26] MEDS: ACETAMINOPHEN 325 MG TAB PO PRN ×4 (05:03→21:19)
[2023-05-26] MEDS: FLECAINIDE ACETATE 100 MG TABLET PO SCH ×2 (06:41→18:38)
[2023-05-26] MEDS: ENOXAPARIN INJ 40 MG/0.4 ML SYR SQ SCH ×2 (06:41→18:37)
[2023-05-26 08:18] LABS: Hematocrit (blood only) 33.7 % (37.0-47.0); Hemoglobin 10.4 g/dl (12.0-16.0); Mean Corpuscular Hemoglobin 26.9 pg (25.0-34.0); Mean Corpuscular Hgb Conc 30.9 g/dL (32.0-36.0); Mean Corpuscular Volume 87.3 fL (80.0-100.0); Mean Platelet Volume 9.3 fL (9.4-12.4); Platelet Count 407 K/uL (130-400); RDW Coefficient of Variation 13.8 % (11.5-14.5); RDW Standard Deviation 43.8 fL (36.4-46.3); Red Blood Count 3.86 M/uL (4.20-5.40); White Blood Count 9.28 K/ul (4.8-10.8)
[2023-05-26 08:39] LABS: BUN Creatinine Ratio 15.7 (10-20); Calcium 9.3 mg/dl (8.6-10.3); Creatinine Clr Calc Pharmacy 62.5 ml/min; Est GFR (African American) 77.7 ml/min; Est GFR (Non-African American) 67.1 ml/min; Magnesium 2.2 mg/dl (1.7-2.4); Phosphorus 3.9 mg/dl (2.5-4.9); Potassium 3.8 mmol/L (3.5-5.1)
[2023-05-26] MEDS: LOSARTAN POTASSIUM 25 MG TAB PO SCH (08:59)
[2023-05-26] MEDS: FAMOTIDINE 20 MG TAB PO SCH ×2 (08:59→21:14)
[2023-05-26] MEDS: FLUTICASONE/VILANTEROL 200/25MCG 14 PUFFS/INHALER INH SCH (09:01)
[2023-05-26] MEDS: CHOLECALCIFEROL 1,000 UNITS 25 MCG TAB PO SCH (09:01)
[2023-05-26] MEDS: METOPROLOL SUCC 25MG EXT REL TAB PO SCH (09:01)
[2023-05-26] MEDS: ASPIRIN 81 MG ECTAB PO SCH (09:01)
[2023-05-26] MEDS: SPIRONOLACTONE 12.5 MG TAB PO SCH (09:01)
[2023-05-26] MEDS: ADVANCED PROBIOTIC 1250 MG CAPSULE PO SCH (09:02)
[2023-05-26] MEDS: INSULIN ASPART PER UNIT CHARGE SC SCH ×4 (09:27→21:17)
--- NOTE | 2023-05-26 10:26 | Surgery Progress Note ---
Date of Service May 26, 2023 Assessment & Plan (1) Diverticulitis of large intestine with complication: Plan: Diverticulitis with suspected colovesical or colovaginal fistula, improving Continue IV antibiotics Will need discharge on oral antibiotics and should probably have suppressive antibiotic until definitive treatment has been performed No acute surgical intervention indicated Will need outpatient colonoscopy and cystoscopy as well as colorectal follow-up Admission and Anticipated Discharge Date Admission Date: May 22, 2023 Subjective Diverticulitis with suspected colovesical or colovaginal fistula. She is not having as many loose bowel movements. She did tolerate low fiber diet. Some intermittent bladder discomfort Physical Exam Constitutional: WD/WN, vitals as above + morbidly obese Gastrointestinal (Abdomen): Percussion/Palpation: + abdomen tender (Mild left lower quad) and abdomen soft; no guarding and abdomen not rigid Results & Data Vital Signs (Past 12 Hours) Vital Signs Temp Pulse Resp BP Pulse Ox O2 Del Method O2 Flow Rate 05/26/23 08:06 36.4 C L 63 16 117/66 98 CPAP 3 05/25/23 22:48 Room Air, Nasal Cannula, Nasal CPAP 2 Laboratory Results Laboratory Results - last 24 hr 05/25/23 05/25/23 05/25/23 11:49 16:50 21:17 WBC RBC Hgb Hct MCV MCH MCHC RDW Std Deviation RDW Coeff of Tasha Plt Count MPV Sodium Potassium Chloride Carbon Dioxide Anion Gap BUN Creatinine Est Cr Clr Drug Dosing Est GFR ( Amer) Est GFR (Non-Af Amer) BUN/Creatinine Ratio Glucose POC Glucose 96 98 121 H Calcium Phosphorus Magnesium 05/26/23 05/26/23 07:44 07:53 WBC 9.28 RBC 3.86 L Hgb 10.4 L Hct 33.7 L MCV 87.3 MCH 26.9 MCHC 30.9 L RDW Std Deviation 43.8 RDW Coeff of Tasha 13.8 Plt Count 407 H MPV 9.3 L Sodium 140 Potassium 3.8 Chloride 106 Carbon Dioxide 26 Anion Gap 8 BUN 13 Creatinine 0.83 Est Cr Clr Drug Dosing 62.5 Est GFR ( Amer) 77.7 Est GFR (Non-Af Amer) 67.1 BUN/Creatinine Ratio 15.7 Glucose 112 H POC Glucose 122 H Calcium 9.3 Phosphorus 3.9 Magnesium 2.2 PG Care Time/CCT Total # of Minutes Spent Total Time Spent with Patient: Total time spent is greater than 50% in coordination of care (as documented) at patient's floor/unit and/or counseling patient: Coding Level of Care Code 79706 SUB INP/OBS CARE Diagnoses Diverticulitis of large intestine with complication K57.32
[2023-05-26] MEDS: SIMETHICONE 80 MG CHEW PO PRN (12:08)
--- NOTE | 2023-05-26 15:27 | Hospitalist Progress Note ---
Date of Service May 26, 2023 Assessment & Plan (1) Diverticulitis of large intestine with complication: Plan Ms. 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 Surgery and Urology on consult at this time--plan to advance diet as tolerated and continue IV antibiotics in interim. Given complex presentation with fistula formation, ID consulted to inquire about need/appropriate suppressive antibiotics/duration of current regimen at this time. Tolerating low fiber diet in the interim, noted diarrhea, but less diverticular pain per the patient's report. #Complicated diverticulitis with abscess and ?colovesical fistula -Failed course of Augmentin as OP -continue zosyn q 8hours -CLD at this time -Surgery/Urology consults: no acute surgical intervention, plan for OP c-scope when flare resolves, may require elective procedure in future, no cystoscopy -Tylenol q8h 1000g pain control prn -ID consult to discuss duration of IV abx and suppressive regimen -Pending abx recommendation from ID--consult placed 05/23, pending plan -Continue low fiber #Chronic diarrhea/IBS -CTM, trial probiotics, historically has not responded well with bentyl given "hallucinations" #Chronic HFpEF #Right Heart Failure -Home: Losartan 100mg, Spironolactone 12.5mg -Decline lasix as OP, will follow fluid status while inpatient -Heart Healthy diet, low fiber when able -Resume lose dose losartan given relatively soft pressures, increase as tolerated -Daily weights -Continue spironolactone, losartan at 25mg #Paroxysmal SVT/AVNRT -Continue flecainide 50mg BID -Wishes to discontinue verapamil 180mg daily as PCP was transitioning to Metoprolol -Continue Metoprolol XL 25 #DMTII -A1C 7.7%, on home metformin SSI while admitted #ASCVD #Prior CEA -Continue ASA -Intolerant to statins, holding zetia 2/2 GI issues #Chronic hypoxic respiratory failure #MASSIMO -Wean O2 >92% -CPAP #Chronic Leukocytosis #MGUS Stable, follows Dr Muniz DVT enoxaprin Admit to med surg for IV abx for diverticulitis Admission and Anticipated Discharge Date Admission Date: May 22, 2023 Subjective Reports generalized abdominal pain and discharge given diarrhea Awaiting review from ID for antibiotic regimen Physical Exam Constitutional: WD/WN, vitals as above Respiratory: normal respiratory effort, lungs clear to auscultation Cardiovascular: RRR, no murmur, no edema Gastrointestinal (Abdomen): normal bowel sounds, soft, nontender, no hepatospl enomegaly Results & Data Results & Data Vital Signs (Past 12 Hours) Vital Signs Temp Pulse Resp BP Pulse Ox O2 Del Method O2 Flow Rate 05/26/23 08:06 36.4 C L 63 16 117/66 98 CPAP 3 Laboratory Results Short CBC 05/26/23 Range/Units 07:44 WBC 9.28 (4.8-10.8) K/ul Hgb 10.4 L (12.0-16.0) g/dl Hct 33.7 L (37.0-47.0) % Plt Count 407 H (130-400) K/uL BMP 05/26/23 07:44 Sodium 140 Potassium 3.8 Chloride 106 Carbon Dioxide 26 BUN 13 Creatinine 0.83 Glucose 112 H Calcium 9.3 Medications Administered Home Medications Medication Instructions Recorded Confirmed Last Taken aspirin 81 mg tablet,delayed 81 mg PO QAM 05/19/18 05/22/23 1 Day Ago release (Andreas Low Dose Aspirin) ~05/21/23 cholecalciferol (vitamin D3) 25 1,000 unit PO QAM 05/19/18 05/22/23 1 Day Ago mcg (1,000 unit) capsule (Vitamin ~05/21/23 D3) famotidine 20 mg tablet (Pepcid) 20 mg PO BID 05/19/18 05/22/23 1 Day Ago ~05/21/23 losartan 100 mg tablet 100 mg PO QAM 05/19/18 05/22/23 1 Day Ago ~05/21/23 metformin 500 mg tablet 500 mg PO QAM 05/19/18 05/22/23 1 Day Ago ~05/21/23 multivitamin 1 tab PO QAM 05/19/18 05/22/23 08/29/22 09:00 fluticasone furoate 200 1 inh inhalation QAM 11/18/18 05/22/23 1 Day Ago mcg-vilanterol 25 mcg/dose ~05/21/23 inhalation powder (Breo Ellipta) albuterol sulfate 90 mcg/actuation 2 puff inhalation Q4H PRN 09/18/19 05/22/23 08/29/22 20:00 aerosol inhaler (ProAir HFA) Cough,SOB or Wheeze fexofenadine 180 mg tablet 180 mg PO QPM 11/28/20 05/22/23 1 Day Ago ~05/21/23 levalbuterol HCl 0.63 mg/3 mL 0.63 mg inhalation DIRECTED PRN 11/28/20 05/22/23 08/23/22 solution for nebulization (Xopenex) Shortness Of Breath Or Wheezing spironolactone 25 mg tablet 12.5 mg PO QAM 10/12/21 05/22/23 1 Day Ago ~05/21/23 verapamil 180 mg tablet,extended 180 mg PO QAM 12/20/21 05/22/23 1 Day Ago release ~05/21/23 flecainide 50 mg tablet 50 mg PO Q12H 08/26/22 05/22/23 1 Day Ago ~05/21/23 simethicone 180 mg capsule 180 mg PO BID PRN STOMACH PAIN 08/26/22 05/22/23 08/29/22 20:00 Active Medications Generic Name Dose Route Start Last Admin Trade Name Freq PRN Reason Stop Dose Admin Acetaminophen 650 mg 05/22/23 21:25 05/26/23 12:08 Acetaminophen 325 Mg Tab PO 06/21/23 21:24 650 mg Q4H PRN Administration Pain or Fever Albuterol 2 puffs 05/22/23 18:35 05/25/23 21:10 Albuterol Hfa 8 Gm Inhaler INH 06/21/23 18:34 2 puffs Q4H PRN Administration Cough,SOB or Wheeze Aspirin 81 mg 05/23/23 09:00 05/26/23 09:01 Aspirin 81 Mg Ectab PO 06/22/23 08:59 81 mg QAM GHASSAN Administration Enoxaparin Sodium 40 mg 05/22/23 19:00 05/26/23 06:41 Enoxaparin Inj 40 Mg/0.4 Ml Syr SQ 06/21/23 18:59 40 mg Q12H GHASSAN Administration Famotidine 20 mg 05/22/23 21:00 05/26/23 08:59 Famotidine 20 Mg Tab PO 06/21/23 20:59 20 mg BID GHASSAN Administration Fexofenadine HCl 180 mg 05/22/23 21:00 05/25/23 20:45 Fexofenadine Hcl 180 Mg Tab PO 06/21/23 20:59 180 mg QPM GHASSAN Administration Flecainide Acetate 50 mg 05/22/23 18:35 05/26/23 06:41 Flecainide Acetate 100 Mg Tablet PO 06/21/23 18:00 50 mg Q12H GHASSAN Administration Fluticasone/Vilanterol 1 puffs 05/23/23 09:00 05/26/23 09:01 Fluticasone/Vilanterol 200/25mcg 14 Puffs/Inhaler INH 06/22/23 08:59 1 puffs QAM GHASSAN Administration Piperacillin Sod/Tazobactam 100 mls @ 25 mls/hr 05/22/23 20:00 05/26/23 16:22 Sod 4.5 gm/ Dextrose IV 06/01/23 19:59 Infused Q8H [facility] Infusion Protocol Insulin Aspart 0 units 05/23/23 11:30 05/26/23 12:44 Insulin Aspart Per Unit Charge SC 06/22/23 11:29 1 units ACHS GHASSAN Administration Lactobacillus Acidophilus 2 cap 05/24/23 09:45 05/26/23 09:02 Advanced Probiotic 1250 Mg Capsule PO 06/23/23 09:44 2 cap DAILY GHASSAN Administration Losartan Potassium 25 mg 05/25/23 10:30 05/26/23 08:59 Losartan Potassium 25 Mg Tab PO 06/24/23 10:29 25 mg QAM GHASSAN Administration Metoprolol Succinate 25 mg 05/26/23 09:00 05/26/23 09:01 Metoprolol Succ 25mg Ext Rel Tab PO 06/25/23 08:59 25 mg QAM GHASSAN Administration Simethicone 80 mg 05/22/23 18:35 05/26/23 12:08 Simethicone 80 Mg Chew PO 06/21/23 18:34 80 mg Q4H PRN Administration STOMACH PAIN Spironolactone 12.5 mg 05/23/23 09:00 05/26/23 09:01 Spironolactone 12.5 Mg Tab PO 06/22/23 08:59 12.5 mg QAM GHASSAN Administration Vitamin D 1,000 units 05/23/23 09:00 05/26/23 09:01 Cholecalciferol 1,000 Units 25 Mcg Tab PO 06/22/23 08:59 1,000 units QAM GHASSAN Administration
[2023-05-26] MEDS: FEXOFENADINE HCL 180 MG TAB PO SCH (21:15)
[2023-05-27] MEDS: PIPERACILLIN/TAZOBACTAM 4.5 GM in DEXTROSE 5% MINI-B 100 ML IV SCH ×3 (04:00→21:16)
[2023-05-27] MEDS: ACETAMINOPHEN 325 MG TAB PO PRN ×3 (04:06→22:34)
[2023-05-27] MEDS: FLECAINIDE ACETATE 100 MG TABLET PO SCH ×2 (05:59→18:23)
[2023-05-27] MEDS: ENOXAPARIN INJ 40 MG/0.4 ML SYR SQ SCH ×2 (06:00→18:22)
[2023-05-27] MEDS: INSULIN ASPART PER UNIT CHARGE SC SCH ×4 (09:15→20:41)
[2023-05-27] MEDS: FAMOTIDINE 20 MG TAB PO SCH ×2 (09:20→20:33)
[2023-05-27] MEDS: ASPIRIN 81 MG ECTAB PO SCH (09:20)
[2023-05-27] MEDS: FLUTICASONE/VILANTEROL 200/25MCG 14 PUFFS/INHALER INH SCH (09:20)
[2023-05-27] MEDS: CHOLECALCIFEROL 1,000 UNITS 25 MCG TAB PO SCH (09:20)
[2023-05-27] MEDS: SPIRONOLACTONE 12.5 MG TAB PO SCH (09:21)
[2023-05-27] MEDS: ADVANCED PROBIOTIC 1250 MG CAPSULE PO SCH (09:21)
[2023-05-27] MEDS: METOPROLOL SUCC 25MG EXT REL TAB PO SCH (09:21)
[2023-05-27] MEDS: LOSARTAN POTASSIUM 50 MG TAB PO SCH (09:23)
--- NOTE | 2023-05-27 10:30 | Surgery Progress Note ---
Date of Service May 27, 2023 Assessment & Plan (1) Fistula: Plan: Colovesical or colovaginal fistula Continue low fiber diet, no n/v VSS , CBC not drawn TTP in LLQ, reports some mild cramping from bowels starting to move and diet increase reports vaginal discharge Patient will need keno terminal operator antibiotics o/p waiting to hear from Infectious disease Will need to see a colorectal surgeon O/P (2) Diverticulitis of large intestine with complication: Admission and Anticipated Discharge Date Admission Date: May 22, 2023 Supervising Physician Co-Signing Physician Notes Patient discussed with GUIDO Gonzalez, agree with above. Patient was having a telehealth visit with infectious disease upon my visit. I did not examine the patient. 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 Her symptoms have continued to improve though she still is having loose stool. Vital signs are stable and her white blood cell count has been normal the past several days. Will plan on suppressive antibiotics with outpatient follow-up with gynecology and colorectal surgery. May need urology over concern of possible colovesical fistula. No need for urgent diverting colostomy at this time. Subjective pt reports feeling ok this AM Tolerating Low fiber diet Reports she believes that she has vaginal involvement with her fistula reports vaginal discharge Having small BMs Denies CP, SOB, N/V Review of Systems Constitutional: no fever and no chills Respiratory: no dyspnea Cardiovascular: no chest pain Gastrointestinal: + abdominal pain (TTP LLQ ) and + crampi ng; no nausea and no vomiting Genitourinary: + vaginal discharge Physical Exam Physical Exam: alert oriented Constitutional: well developed, + morbidly obese, cooperative and comfortable; no acute distress Respiratory: normal respiratory effort and able to speak in complete sentences; no respiratory distress Cardiovascular: Rate/Rhythm: regular rate Gastrointestinal (Abdomen): Inspection/Auscultation: no significant pannus Percussion/Palpation: + abdomen tender (LLQ); no guarding Results & Data Vital Signs (Past 12 Hours) Vital Signs Temp Pulse Resp BP Pulse Ox O2 Del Method 05/27/23 09:19 64 122/63 05/27/23 08:04 98.1 F 63 16 133/74 91 Room Air PG Care Time/CCT Total # of Minutes Spent Total Time Spent with Patient: Total time spent is greater than 50% in coordination of care (as documented) at patient's floor/unit and/or counseling patient: Coding Level of Care Code 82556 SUB INP/OBS CARE Diagnoses Fistula L98.8 Diverticulitis of large intestine with complication K57.32
--- NOTE | 2023-05-27 12:09 | Infectious Disease Consult ---
Date of Service May 27, 2023 Telehealth Information I performed this visit using a real-time telehealth connection between my location and the patients location ([facility]). After connecting through interactive tele-video, patient was identified by name and date of and/or wristband check.Patient (or authorized healthcare customer development representative) was informed that this was a telemedicine visit and it was being conducted confidentially over secure lines. My office door was closed and no one else was present in the room with me.Patient (or authorized healthcare customer development representative) provided consent to proceed with the visit, expressed an understanding of privacy and security of the telemedicine visit, and gave permission to have a hospital customer development representative in the room in order to assist with the visit and to conduct portions of the visit, as needed. I informed the patient (or authorized healthcare customer development representative) that I reviewed their record and presented the opportunity for them to ask any questions regarding the visit today. The patient agreed to participate. Assessment & Plan (1) Lower abdominal pain: (2) Diverticulitis: (3) Fistula: (4) Diverticulitis of large intestine with complication: (5) Chronic diastolic CHF (congestive heart failure): (6) MASSIMO (obstructive sleep apnea): (7) SVT (supraventricular tachycardia): (8) COPD exacerbation: (9) Elevated troponin: (10) SVT (supraventricular tachycardia): Plan Assessment: Ms. 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 At [facility], pt had a CT abd/pelvis which showed complicated diverticulitis given presence of abscess and colovesical +/- colovaginal fistula. General surgery and Urology consulted and recommend no acute surgical intervention. Plan: - Recommend continuing Zosyn 4.5g q8 IV for 4-6 weeks, please adjust for CrCl (true duration will depend on f/u CT abd/pelvis) Potential End: 07/03/2022 (please contact ID physician prior to stopping antibiotics) - Recommend repeat CT abd/pelvis with oral contrast w/o IV contrast in 3-4 weeks (must be ordered by primary team) - Recommend CBC and CMP weekly - we will sign off, please schedule ID clinic appointment with [facility] ID in 6-7 weeks, we can not actively monitor labs or follow-up in [facility] system, please send all data to ID clinic at [facility] in [place]. Pt okay to f/u with any ID physician available. History of Present Illness History of Present Illness Reason for Consult: colovesical/colovaginal fistula and diverticulitis Ms. 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 At [facility], pt had a CT abd/pelvis which showed complicated diverticulitis given presence of abscess and colovesical +/- colovaginal fistula. General surgery and Urology consulted and recommend no acute surgical intervention. ID consulted for evaluation and management. Allergies Allergy/AdvReac Type Severity Reaction Status Date / Time CAMMIE Inhibitors Allergy Intermediate COUGH Verified 08/30/22 09:00 cefaclor Allergy Intermediate HIVES Verified 08/30/22 09:00 erythromycin base Allergy Intermediate HIVES Verified 08/30/22 09:00 hyoscyamine Allergy Intermediate HALLUCINATI Verified 08/30/22 09:00 ONS saccharin Allergy Intermediate WHEEZING Verified 08/30/22 09:00 Sulfa (Sulfonamide Allergy Intermediate HIVES Verified 08/30/22 09:00 Antibiotics) sulfite Allergy Intermediate WHEEZING Verified 08/30/22 09:00 etodolac AdvReac Intermediate STOMACH Verified 08/30/22 09:00 PAIN levofloxacin AdvReac Intermediate BRAIN FOG Verified 08/30/22 09:00 AND SPACEY sorbitol AdvReac Intermediate STOMACH Verified 08/30/22 09:00 PAIN Home Medications Medication Instructions Recorded Confirmed Type aspirin 81 mg tablet,delayed 81 mg PO QAM 05/19/18 05/22/23 History release (Andreas Low Dose Aspirin) cholecalciferol (vitamin D3) 25 1,000 unit PO QAM 05/19/18 05/22/23 History mcg (1,000 unit) capsule (Vitamin D3) famotidine 20 mg tablet (Pepcid) 20 mg PO BID 05/19/18 05/22/23 History losartan 100 mg tablet 100 mg PO QAM 05/19/18 05/22/23 History metformin 500 mg tablet 500 mg PO QAM 05/19/18 05/22/23 History multivitamin 1 tab PO QAM 05/19/18 05/22/23 History fluticasone furoate 200 1 inh inhalation QAM 11/18/18 05/22/23 History mcg-vilanterol 25 mcg/dose inhalation powder (Breo Ellipta) albuterol sulfate 90 mcg/actuation 2 puff inhalation Q4H PRN 09/18/19 05/22/23 History aerosol inhaler (ProAir HFA) Cough,SOB or Wheeze fexofenadine 180 mg tablet 180 mg PO QPM 11/28/20 05/22/23 History levalbuterol HCl 0.63 mg/3 mL 0.63 mg inhalation DIRECTED PRN 11/28/20 05/22/23 History solution for nebulization (Xopenex) Shortness Of Breath Or Wheezing spironolactone 25 mg tablet 12.5 mg PO QAM 10/12/21 05/22/23 History verapamil 180 mg tablet,extended 180 mg PO QAM 12/20/21 05/22/23 History release flecainide 50 mg tablet 50 mg PO Q12H 08/26/22 05/22/23 History simethicone 180 mg capsule 180 mg PO BID PRN STOMACH PAIN 08/26/22 05/22/23 History Patient History Medical History History of diverticulitis Hx of gout On home oxygen therapy WEARS O2 1L WITH EXERTION AND 3L AT HS Degenerative disc disease SVT (supraventricular tachycardia) HX (CARDIAC ABLATION) FOLLOWED BY DR. AUGUSTIN Diastolic dysfunction Asthma, moderate persistent "WAS TOLD TO USE RESCUE INHALER DAILY" MGUS (monoclonal gammopathy of unknown significance) GERD (gastroesophageal reflux disease) COPD, moderate Anxiety Chronic sinusitis Obstructive sleep apnea on CPAP CPAP AND O2 AT 3L AT HS Nocturnal hypoxia IBS (irritable bowel syndrome) Osteoarthritis Carotid stenosis Depression DM type 2 (diabetes mellitus, type 2) Hyperlipidemia Hypertension Surgical History History of anesthesia reaction pulse ox drops with any anesthesia History of arthroscopy of left knee History of cardiac radiofrequency ablation (RFA) X 2 (LAST DONE 2019) History of dilatation and curettage History of esophagogastroduodenoscopy (EGD) History of colonoscopy H/O exploratory laparotomy History of tooth extraction History of hysterectomy S/P carotid endarterectomy "left, 09/2015" S/P tonsillectomy and adenoidectomy S/P cholecystectomy History of cataract surgery RT/LEFT S/P section X 2 S/P total knee arthroplasty "left" H/O sinus surgery x2 - 05/09/11 - MAC #3, ETT #7.0 Family History Mother Pancreatic cancer Father Prostate cancer Brother Family history of diabetes mellitus Other No family history of adverse response to anesthesia Social History Smoking Status: Former smoker Tobacco Type: Cigarettes Second Hand Exposure: Yes (IN THE PAST); Do You Dip or Chew Tobacco: No; Hx Alcohol Use: Yes Hx Substance Use: No Preferred Language: Marshallese Communication Ability: Effective Visual Impairment: No Limitations Hearing Ability: Normal Liquid Loader Required: No Beliefs That Will Affect Care: None marital status: Current Living Situation: Alone current occupational status: retired Other Information That Helps Us Care for You: No Feels Safe at Home: Yes Safety Concerns: Feels Safe At This Time Assistive Devices: None Review of Systems Reviewed all ROS, all negative Physical Exam Gen: well appearing and WNL HEENT: WNL Results & Data Vital Signs (Past 12 Hours) Vital Signs Temp Pulse Resp BP Pulse Ox O2 Del Method 05/27/23 09:19 64 122/63 05/27/23 09:00 Room Air 05/27/23 08:04 36.7 C 63 16 133/74 91 Room Air Laboratory Results Urine culture on 05/23/2023 Urine Culture Final 05/23/23-1215 Three types of organisms present, all low counts probable skin jacqueline. No further identifications or sensitivities to follow. Diagnostic Findings CT abd/pelvis on 05/22/2023 IMPRESSION: Findings are compatible with diverticulitis. There is suggestion of a colovesicular fistula and possible mural abscess. Medications Administered Currently on Zosyn 4.5g q8 IV
--- NOTE | 2023-05-27 15:58 | Hospitalist Progress Note ---
Date of Service May 27, 2023 Assessment & Plan (1) Diverticulitis of large intestine with complication: Plan Ms. 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 Surgery and Urology on consult at this time--plan to advance diet as tolerated and continue IV antibiotics in interim. Given complex presentation with fistula formation, ID consulted to inquire about need/appropriate suppressive antibiotics/duration of current regimen at this time. Tolerating low fiber diet in the interim, noted diarrhea, but less diverticular pain per the patient's report. Concerns over increased vaginal discharge that is brown in color; informed patient that if fistula remains patent, this is going to be the case until further intervention can be scheduled. Reviewed Infectious disease notes and due to the complicated diverticulitis with abscess/fistula formation recommends IV antibiotics for 4-[address] imaging with oral contrast in 3-4 weeks, as well as plan for ID appointment in 6-7 weeks. Patient conflicted on discharge options as she is not sure how to care for self, but then has hesitance for facility given elderly cat at home. #Complicated diverticulitis with abscess and ?colovesical fistula -Failed course of Augmentin as OP -continue zosyn q 8hours -CLD at this time -Surgery/Urology consults: no acute surgical intervention, plan for OP c-scope when flare resolves, may require elective procedure in future, no cystoscopy -Tylenol q8h 1000g pain control prn -ID consult to discuss duration of IV abx and suppressive regimen -IV zosyn q8h 4-6weeks -Repeat po contrast CT abd/p in 3-4 weeks -ID follow up OP in 6-7 weeks with any ID physician -PICC line to be placed today #Chronic diarrhea/IBS -CTM, trial probiotics, historically has not responded well with bentyl given "hallucinations" #Chronic HFpEF #Right Heart Failure -Home: Losartan 100mg, Spironolactone 12.5mg -Decline lasix as OP, will follow fluid status while inpatient -Heart Healthy diet, low fiber when able -Resume lose dose losartan given relatively soft pressures, increase as tolerated -Daily weights -Continue spironolactone, losartan at 50mg #Paroxysmal SVT/AVNRT -Continue flecainide 50mg BID -Wishes to discontinue verapamil 180mg daily as PCP was transitioning to Metoprolol -Continue Metoprolol XL 25 #DMTII -A1C 7.7%, on home metformin SSI while admitted #ASCVD #Prior CEA -Continue ASA -Intolerant to statins, holding zetia 2/2 GI issues #Chronic hypoxic respiratory failure #MASSIMO -Wean O2 >92% -CPAP #Chronic Leukocytosis #MGUS Stable, follows Dr Muniz DVT enoxaprin Admit to med surg for IV abx for diverticulitis; dispo now contingent on home v SNF IV antibiotics Admission and Anticipated Discharge Date Admission Date: May 22, 2023 Subjective Anxious over determination for IV antibiotics. Feels hopeless and worried over pet cat at home with lymphoma--torn between next steps in care now that IV antibiotics are required, then concern over ability to care for ostomy if thats the next step per CRS Attempted to calm patient, discussed various options for next steps and offer pastoral care or other services, of which she politely declined Review of Systems Review of Systems: All systems reviewed & are unremarkable except as noted in Subjective Physical Exam Constitutional: tearful and upset Respiratory: normal respiratory effort, lungs clear to auscultation Cardiovascular: RRR, no murmur, no edema Gastrointestinal (Abdomen): normal bowel sounds, soft, nontender, no hepatosplenomegaly Results & Data Results & Data Vital Signs (Past 12 Hours) Vital Signs Temp Pulse Resp BP Pulse Ox O2 Del Method 05/27/23 15:43 36.8 C 78 16 169/82 H 91 Room Air 05/27/23 09:19 64 122/63 05/27/23 09:00 Room Air 05/27/23 08:04 36.7 C 63 16 133/74 91 Room Air Medications Administered Home Medications Medication Instructions Recorded Confirmed Last Taken aspirin 81 mg tablet,delayed 81 mg PO QAM 05/19/18 05/22/23 1 Day Ago release (Andreas Low Dose Aspirin) ~05/21/23 cholecalciferol (vitamin D3) 25 1,000 unit PO QAM 05/19/18 05/22/23 1 Day Ago mcg (1,000 unit) capsule (Vitamin ~05/21/23 D3) famotidine 20 mg tablet (Pepcid) 20 mg PO BID 05/19/18 05/22/23 1 Day Ago ~05/21/23 losartan 100 mg tablet 100 mg PO QAM 05/19/18 05/22/23 1 Day Ago ~05/21/23 metformin 500 mg tablet 500 mg PO QAM 05/19/18 05/22/23 1 Day Ago ~05/21/23 multivitamin 1 tab PO QAM 05/19/18 05/22/23 08/29/22 09:00 fluticasone furoate 200 1 inh inhalation QAM 11/18/18 05/22/23 1 Day Ago mcg-vilanterol 25 mcg/dose ~05/21/23 inhalation powder (Breo Ellipta) albuterol sulfate 90 mcg/actuation 2 puff inhalation Q4H PRN 09/18/19 05/22/23 08/29/22 20:00 aerosol inhaler (ProAir HFA) Cough,SOB or Wheeze fexofenadine 180 mg tablet 180 mg PO QPM 11/28/20 05/22/23 1 Day Ago ~05/21/23 levalbuterol HCl 0.63 mg/3 mL 0.63 mg inhalation DIRECTED PRN 11/28/20 05/22/23 08/23/22 solution for nebulization (Xopenex) Shortness Of Breath Or Wheezing spironolactone 25 mg tablet 12.5 mg PO QAM 10/12/21 05/22/23 1 Day Ago ~05/21/23 verapamil 180 mg tablet,extended 180 mg PO QAM 12/20/21 05/22/23 1 Day Ago release ~05/21/23 flecainide 50 mg tablet 50 mg PO Q12H 08/26/22 05/22/23 1 Day Ago ~05/21/23 simethicone 180 mg capsule 180 mg PO BID PRN STOMACH PAIN 08/26/22 05/22/23 08/29/22 20:00 Active Medications Generic Name Dose Route Start Last Admin Trade Name Freq PRN Reason Stop Dose Admin Acetaminophen 650 mg 05/22/23 21:25 05/27/23 04:06 Acetaminophen 325 Mg Tab PO 06/21/23 21:24 650 mg Q4H PRN Administration Pain or Fever Albuterol 2 puffs 05/22/23 18:35 05/25/23 21:10 Albuterol Hfa 8 Gm Inhaler INH 06/21/23 18:34 2 puffs Q4H PRN Administration Cough,SOB or Wheeze Aspirin 81 mg 05/23/23 09:00 05/27/23 09:20 Aspirin 81 Mg Ectab PO 06/22/23 08:59 81 mg QAM GHASSAN Administration Enoxaparin Sodium 40 mg 05/22/23 19:00 05/27/23 06:00 Enoxaparin Inj 40 Mg/0.4 Ml Syr SQ 06/21/23 18:59 40 mg Q12H GHASSAN Administration Famotidine 20 mg 05/22/23 21:00 05/27/23 09:20 Famotidine 20 Mg Tab PO 06/21/23 20:59 20 mg BID GHASSAN Administration Fexofenadine HCl 180 mg 05/22/23 21:00 05/26/23 21:15 Fexofenadine Hcl 180 Mg Tab PO 06/21/23 20:59 180 mg QPM GHASSAN Administration Flecainide Acetate 50 mg 05/22/23 18:35 05/27/23 05:59 Flecainide Acetate 100 Mg Tablet PO 06/21/23 18:00 50 mg Q12H GHASSAN Administration Fluticasone/Vilanterol 1 puffs 05/23/23 09:00 05/27/23 09:20 Fluticasone/Vilanterol 200/25mcg 14 Puffs/Inhaler INH 06/22/23 08:59 1 puffs QAM GHASSAN Administration Piperacillin Sod/Tazobactam 100 mls @ 25 mls/hr 05/22/23 20:00 05/27/23 15:38 Sod 4.5 gm/ Dextrose IV 06/01/23 19:59 0 mls/hr Q8H GHASSAN Infusion Protocol Insulin Aspart 0 units 05/23/23 11:30 05/27/23 12:53 Insulin Aspart Per Unit Charge SC 06/22/23 11:29 Not Given ACHS GHASSAN Lactobacillus Acidophilus 2 cap 05/24/23 09:45 05/27/23 09:21 Advanced Probiotic 1250 Mg Capsule PO 06/23/23 09:44 2 cap DAILY GHASSAN Administration Losartan Potassium 50 mg 05/27/23 09:00 05/27/23 09:23 Losartan Potassium 50 Mg Tab PO 06/26/23 08:59 50 mg QAM GHASSAN Administration Metoprolol Succinate 25 mg 05/26/23 09:00 05/27/23 09:21 Metoprolol Succ 25mg Ext Rel Tab PO 06/25/23 08:59 25 mg QAM GHASSAN Administration Simethicone 80 mg 05/22/23 18:35 05/26/23 12:08 Simethicone 80 Mg Chew PO 06/21/23 18:34 80 mg Q4H PRN Administration STOMACH PAIN Spironolactone 12.5 mg 05/23/23 09:00 05/27/23 09:21 Spironolactone 12.5 Mg Tab PO 06/22/23 08:59 12.5 mg QAM GHASSAN Administration Vitamin D 1,000 units 05/23/23 09:00 05/27/23 09:20 Cholecalciferol 1,000 Units 25 Mcg Tab PO 06/22/23 08:59 1,000 units QAM GHASSAN Administration
[2023-05-27] MEDS ORDERED: Nursing to Pharmacy Communication SCH (20:30)
[2023-05-27] MEDS: FEXOFENADINE HCL 180 MG TAB PO SCH (20:33)
[2023-05-28] MEDS: PIPERACILLIN/TAZOBACTAM 4.5 GM in DEXTROSE 5% MINI-B 100 ML IV SCH ×3 (04:10→19:56)
[2023-05-28] MEDS: FLECAINIDE ACETATE 100 MG TABLET PO SCH ×2 (06:06→18:31)
[2023-05-28] MEDS: ENOXAPARIN INJ 40 MG/0.4 ML SYR SQ SCH ×2 (06:07→18:34)
[2023-05-28] MEDS: INSULIN ASPART PER UNIT CHARGE SC SCH ×4 (08:13→20:19)
[2023-05-28] MEDS: FAMOTIDINE 20 MG TAB PO SCH ×2 (08:20→20:01)
[2023-05-28] MEDS: METOPROLOL SUCC 25MG EXT REL TAB PO SCH (08:20)
[2023-05-28] MEDS: CHOLECALCIFEROL 1,000 UNITS 25 MCG TAB PO SCH (08:21)
[2023-05-28] MEDS: ADVANCED PROBIOTIC 1250 MG CAPSULE PO SCH (08:21)
[2023-05-28] MEDS: SPIRONOLACTONE 12.5 MG TAB PO SCH (08:21)
[2023-05-28] MEDS: ASPIRIN 81 MG ECTAB PO SCH (08:22)
[2023-05-28] MEDS: FLUTICASONE/VILANTEROL 200/25MCG 14 PUFFS/INHALER INH SCH (08:22)
[2023-05-28] MEDS: LOSARTAN POTASSIUM 50 MG TAB PO SCH (08:22)
--- NOTE | 2023-05-28 12:23 | Surgery Progress Note ---
Date of Service May 28, 2023 Assessment & Plan (1) Diverticulitis: Plan: Diverticulitis with suspected colovesical or colovaginal fistula. No need for urgent surgical management. Continue IV antibiotics, coordinating home health care versus rehab ID recommends repeat CT scan in 2 to 3 weeks Patient will need outpatient follow-up with colorectal surgery as well as urology and gynecology Will need colonoscopy Surgery will follow peripherally, call with questions or concerns Admission and Anticipated Discharge Date Admission Date: May 22, 2023 Subjective Admitted with diverticulitis with possible intramural abscess and suspected colovaginal or colovesical fistula. Overall her symptoms have improved and her bowel movements are starting to become slightly more firm. Consult with infectious disease yesterday recommended long-term IV antibiotics, and a PICC line was placed. Currently coordinating home health care. Physical Exam Constitutional: WD/WN, vitals as above + morbidly obese Gastrointestinal (Abdomen): Percussion/Palpation: + abdomen tender (Mild left lower quadrant and suprapubic tenderness) and abdomen soft; no guarding and abdomen not rigid Results & Data Vital Signs (Past 12 Hours) Vital Signs Temp Pulse Resp BP Pulse Ox O2 Del Method 05/28/23 07:57 36.9 C 66 17 160/73 H 92 Room Air PG Care Time/CCT Total # of Minutes Spent Total Time Spent with Patient: Total time spent is greater than 50% in coordination of care (as documented) at patient's floor/unit and/or counseling patient: Coding Level of Care Code 64625 SUB INP/OBS CARE 2/35MIN Diagnoses Diverticulitis K57.92
--- NOTE | 2023-05-28 12:46 | Hospitalist Progress Note ---
Date of Service May 28, 2023 Assessment & Plan (1) Diverticulitis of large intestine with complication: Plan per previous attending notes with addendum: Ms. 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 Surgery and Urology on consult at this time--plan to advance diet as tolerated and continue IV antibiotics in interim. Given complex presentation with fistula formation, ID consulted to inquire about need/appropriate suppressive antibiotics/duration of current regimen at this time. Tolerating low fiber diet in the interim, noted diarrhea, but less diverticular pain per the patient's report. Concerns over increased vaginal discharge that is brown in color; informed patient that if fistula remains patent, this is going to be the case until further intervention can be scheduled. Reviewed Infectious disease notes and due to the complicated diverticulitis with abscess/fistula formation recommends IV antibiotics for 4-[address] imaging with oral contrast in 3-4 weeks, as well as plan for ID appointment in 6-7 weeks. Patient conflicted on discharge options as she is not sure how to care for self, but then has hesitance for facility given elderly cat at home. #Complicated diverticulitis with abscess and ?colovesical fistula -Failed course of Augmentin as OP -continue zosyn q 8hours -CLD at this time -Surgery/Urology consults: no acute surgical intervention, plan for OP c-scope when flare resolves, may require elective procedure in future, no cystoscopy -Tylenol q8h 1000g pain control prn -ID consult to discuss duration of IV abx and suppressive regimen -IV zosyn q8h 4-6weeks -Repeat po contrast CT abd/p in 3-4 weeks -ID follow up OP in 6-7 weeks with any ID physician -PICC line to be placed today 05/28 Remains stable overall We will need 4 to 6 weeks of IV Zosyn Mook CT abdomen pelvis in 3 to 4 weeks Follow-up with ID Patient deciding whether to transition to long term facility or return home with home no services #Chronic diarrhea/IBS -CTM, trial probiotics, historically has not responded well with bentyl given "hallucinations" #Chronic HFpEF #Right Heart Failure -Home: Losartan 100mg, Spironolactone 12.5mg -Decline lasix as OP, will follow fluid status while inpatient -Heart Healthy diet, low fiber when able -Resume lose dose losartan given relatively soft pressures, increase as tolerated -Daily weights -Continue spironolactone, losartan at 50mg #Paroxysmal SVT/AVNRT -Continue flecainide 50mg BID -Wishes to discontinue verapamil 180mg daily as PCP was transitioning to Metoprolol -Continue Metoprolol XL 25 #DMTII -A1C 7.7%, on home metformin SSI while admitted #ASCVD #Prior CEA -Continue ASA -Intolerant to statins, holding zetia 2/2 GI issues #Chronic hypoxic respiratory failure #MASSIMO -Wean O2 >92% -CPAP #Chronic Leukocytosis #MGUS Stable, follows Dr Muniz DVT enoxaparin Admission and Anticipated Discharge Date Admission Date: May 22, 2023 Subjective Follow-up with diverticulitis, etc. Seen resting in bed, comfortable, not in distress Good spirits Patient feels fine overall Denies abdominal pain, nausea, fevers or chills No other new symptoms Review of Systems Review of Systems: all noted and negative except for above Physical Exam Physical Exam: General- oriented x 3, not in distress, speaks in sentences with no effort or accessory muscle use Eyes- anicteric Neck- no JVD Lungs- clear breath sounds bilaterally, no rales/wheezes Heart- normal rate, regular rhythm; no murmurs Abdomen- normal bowel sounds, nondistended, soft, nontender Extremities- no pretibial edema, no calf tenderness Neuro- alert, oriented x 3; no gross focal neurologic deficits Skin- warm & dry Results & Data Results & Data Vital Signs (Past 12 Hours) Vital Signs Temp Pulse Resp BP Pulse Ox O2 Del Method 05/28/23 07:57 36.9 C 66 17 160/73 H 92 Room Air all noted and reviewed including below
[2023-05-28] MEDS: ACETAMINOPHEN 325 MG TAB PO PRN ×2 (14:10→21:40)
[2023-05-28] MEDS: SIMETHICONE 80 MG CHEW PO PRN (16:47)
[2023-05-28] MEDS: FEXOFENADINE HCL 180 MG TAB PO SCH (20:00)
[2023-05-29] MEDS: PIPERACILLIN/TAZOBACTAM 4.5 GM in DEXTROSE 5% MINI-B 100 ML IV SCH ×3 (05:01→19:31)
[2023-05-29] MEDS: FLECAINIDE ACETATE 100 MG TABLET PO SCH ×2 (05:03→18:31)
[2023-05-29] MEDS: ENOXAPARIN INJ 40 MG/0.4 ML SYR SQ SCH ×2 (05:07→18:32)
[2023-05-29] MEDS: INSULIN ASPART PER UNIT CHARGE SC SCH ×4 (08:23→20:38)
[2023-05-29] MEDS: FAMOTIDINE 20 MG TAB PO SCH ×2 (08:27→20:32)
[2023-05-29] MEDS: CHOLECALCIFEROL 1,000 UNITS 25 MCG TAB PO SCH (08:28)
[2023-05-29] MEDS: METOPROLOL SUCC 25MG EXT REL TAB PO SCH (08:28)
[2023-05-29] MEDS: SPIRONOLACTONE 12.5 MG TAB PO SCH (08:28)
[2023-05-29] MEDS: LOSARTAN POTASSIUM 50 MG TAB PO SCH (08:29)
[2023-05-29] MEDS: ADVANCED PROBIOTIC 1250 MG CAPSULE PO SCH (08:29)
[2023-05-29] MEDS: FLUTICASONE/VILANTEROL 200/25MCG 14 PUFFS/INHALER INH SCH (08:30)
[2023-05-29] MEDS: ASPIRIN 81 MG ECTAB PO SCH (08:30)
[2023-05-29] MEDS ORDERED: SODIUM CHLORIDE 0.65% NA SOLN 45 ML (OCEAN) ONE (09:37)
[2023-05-29] MEDS: ACETAMINOPHEN 325 MG TAB PO PRN ×3 (12:22→23:45)
[2023-05-29] MEDS ORDERED: OPTIRAY 320 500ml IV ONE (17:02)
[2023-05-29 17:07] LABS: Basophils # (auto) 0.06 K/uL (0.00-0.20); Basophils % (auto) 0.6 %; Eosinophils # (auto) 0.19 K/uL (0.00-0.50); Hematocrit (blood only) 33.9 % (37.0-47.0); Hemoglobin 10.3 g/dl (12.0-16.0); Immature Granulocytes # (auto) 0.03 K/uL (0.01-0.20); Immature Granulocytes % (auto) 0.3 %; Lymphocytes # (auto) 1.47 K/uL (1.20-3.40); Lymphocytes % (auto) 15.1 %; Mean Corpuscular Hgb Conc 30.4 g/dL (32.0-36.0); Mean Platelet Volume 9.5 fL (9.4-12.4); Monocytes # (auto) 0.71 K/uL (0.11-0.59); Monocytes % (auto) 7.3 %; Neutrophils # (auto) 7.27 K/uL (1.40-6.50); Neutrophils % (auto) 74.7 %; Platelet Count 355 K/uL (130-400); RDW Standard Deviation 44.6 fL (36.4-46.3); Red Blood Count 3.81 M/uL (4.20-5.40); White Blood Count 9.73 K/ul (4.8-10.8)
[2023-05-29 17:19] LABS: Albumin Globulin Ratio 1.1 (0.9-2); Albumin Level 3.6 gm/dl (3.4-5.0); BUN Creatinine Ratio 23.1 (10-20); Bilirubin,Total 0.5 mg/dl (0.2-1.0); Calcium 8.9 mg/dl (8.6-10.3); Creatinine Clr Calc Pharmacy 65.3 ml/min; Est GFR (African American) 83.8 ml/min; Est GFR (Non-African American) 72.3 ml/min; Globulin 3.2 gm/dl (2.5-4.0); Potassium 3.3 mmol/L (3.5-5.1); Total Protein 6.8 gm/dl (6.0-8.3)
--- NOTE | 2023-05-29 17:58 | CT Scan Report ---
CT abd pelvis IV con only CLINICAL HISTORY: left sided pain, ff up diverticulitis TECHNIQUE: Helical axial images of the abdomen and pelvis were obtained and displayed. Automated dose lowering techniques and/or adjustment according to patient size were utilized for this exam. This e xam was performed with intravenous contrast. CT DOSE: 1366.67 mGy.cm COMPARISON: Comparison is made to CT abdomen pelvis 05/22/2023 FINDINGS: Lower chest: Bibasilar atelectasis versus scarring is seen. Liver: Unremarkable. No focal lesions are seen. Gallbladder and biliary tree: Patient is status post cholecystectomy. No intra- or extrahepatic bilia ry ductal dilation. 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 This is unchanged from prior exam. Spleen: Unremarkable. Adrenals: Unremarkable. 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 Bladder: Again noted is tethering of the left superior aspect of the bladder. Reproductive organs: Patient is status post hysterectomy. Bowel: Again noted is bowel thickening in the distal descending and sigmoid colon, the extent of thic kening is minimal decreased from prior exam. However, the colovesicular fistula is again seen. Previo usly noted gas and fluid collection appears essentially unchanged. The appendix is normal. Lymph nodes Retroperitoneal: Subcentimeter lymph nodes are noted. Pelvic: Unremarkable. Mesenteric: Unremarkable. Peritoneum: Peritoneal stranding is again seen about the inflamed portion of bowel. No pneumoperitone um or definitely separate abscess is seen. Vessels: Unremarkable. Abdominal wall: Injection granulomata are seen. Bones: Degenerative changes in the visualized spine. IMPRESSION: Interval stability to minimal decrease in previously noted diverticulitis. Redemonstration of a colov esical fistula and gas and fluid collection which may represent a prominent diverticulum, less likely abscess. ACT 112: Negative or not required by law. Electronically signed by: Andrew Garcia M.D. 05/29/2023 5:56 PM
--- NOTE | 2023-05-29 18:08 | Hospitalist Progress Note ---
Date of Service May 29, 2023 Assessment & Plan (1) Diverticulitis: Plan: (1) Diverticulitis of large intestine with complication: Plan per previous attending notes with addendum: Ms. 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 Surgery and Urology on consult at this time--plan to advance diet as tolerated and continue IV antibiotics in interim. Given complex presentation with fistula formation, ID consulted to inquire about need/appropriate suppressive antibiotics/duration of current regimen at this time. Tolerating low fiber diet in the interim, noted diarrhea, but less diverticular pain per the patient's report. Concerns over increased vaginal discharge that is brown in color; informed patient that if fistula remains patent, this is going to be the case until further intervention can be scheduled. Reviewed Infectious disease notes and due to the complicated diverticulitis with abscess/fistula formation recommends IV antibiotics for 4-[address] imaging with oral contrast in 3-4 weeks, as well as plan for ID appointment in 6-7 weeks. Patient conflicted on discharge options as she is not sure how to care for self, but then has hesitance for facility given elderly cat at home. #Complicated diverticulitis with abscess and ?colovesical fistula -Failed course of Augmentin as OP -continue zosyn q 8hours -CLD at this time -Surgery/Urology consults: no acute surgical intervention, plan for OP c-scope when flare resolves, may require elective procedure in future, no cystoscopy -Tylenol q8h 1000g pain control prn -ID consult to discuss duration of IV abx and suppressive regimen -IV zosyn q8h 4-6weeks -Repeat po contrast CT abd/p in 3-4 weeks -ID follow up OP in 6-7 weeks with any ID physician -PICC line to be placed today 05/29 Reporting left lower quadrant pain today Repeat CT abdomen and pelvis with IV contrast showing stability to moderately d ecreased diverticulitis LFTs mildly increased, possibly secondary to infection and having antibiotics Will need to be monitored We will need 4 to 6 weeks of IV Zosyn Repeat CT abdomen pelvis in 3 to 4 weeks Follow-up with ID Patient deciding whether to transition to [facility] facility or return home with home health services Patient's daughter more leaning towards patient going to [facility] facility for assistance with IV antibiotics #Chronic diarrhea/IBS -CTM, trial probiotics, historically has not responded well with bentyl given "hallucinations" #Chronic HFpEF #Right Heart Failure -Home: Losartan 100mg, Spironolactone 12.5mg -Decline lasix as OP, will follow fluid status while inpatient -Heart Healthy diet, low fiber when able -Resume low dose losartan given relatively soft pressures, increase as tolerated -Continue spironolactone, losartan at 50mg #Paroxysmal SVT/AVNRT -Continue flecainide 50mg BID -Wishes to discontinue verapamil 180mg daily as PCP was transitioning to Metoprolol -Continue Metoprolol XL 25 #DMTII -A1C 7.7%, on home metformin SSI while admitted #ASCVD #Prior CEA -Continue ASA -Intolerant to statins, holding zetia 2/2 GI issues #Chronic hypoxic respiratory failure #MASSIMO -Wean O2 >92% -CPAP #Chronic Leukocytosis #MGUS Stable, follows Dr Muniz DVT enoxaparin Admission and Anticipated Discharge Date Admission Date: May 22, 2023 Subjective ff up for diverticulitis, etc. Seen sitting up in bed, not in distress Patient reports left-sided mostly upper quadrant discomfort Denies nausea Last good bowel movement was 2 to 3 days ago Positive flatus No fevers or chills No other new symptoms Review of Systems Review of Systems: all noted and negative except for above Physical Exam Physical Exam: General- oriented x 3, not in distress, speaks in sentences with no effort or accessory muscle use Eyes- anicteric Neck- no JVD Lungs- clear breath sounds bilaterally, no rales/wheezes Heart- normal rate, regular rhythm; no murmurs Abdomen- normal bowel sounds, nondistended, soft, (+) mild left upper quadrant tenderness Extremities- no pretibial edema, no calf tenderness Neuro- alert, oriented x 3; no gross focal neurologic deficits Skin- warm & dry Results & Data Results & Data Vital Signs (Past 12 Hours) Vital Signs Temp Pulse Resp BP BP Pulse Ox O2 Del Method 05/29/23 14:51 36.7 C 71 16 146/72 H 93 Room Air 05/29/23 07:42 36.5 C 66 16 149/78 H 94 Room Air all noted and reviewed including below
[2023-05-29] MEDS: SIMETHICONE 80 MG CHEW PO PRN (18:32)
[2023-05-29] MEDS: FEXOFENADINE HCL 180 MG TAB PO SCH (20:32)
[2023-05-30] MEDS: PIPERACILLIN/TAZOBACTAM 4.5 GM in DEXTROSE 5% MINI-B 100 ML IV SCH ×3 (04:04→20:14)
[2023-05-30] MEDS: ACETAMINOPHEN 325 MG TAB PO PRN ×4 (04:07→23:56)
[2023-05-30] MEDS: ENOXAPARIN INJ 40 MG/0.4 ML SYR SQ SCH ×2 (06:01→17:35)
[2023-05-30] MEDS: FLECAINIDE ACETATE 100 MG TABLET PO SCH ×2 (06:01→17:32)
[2023-05-30] MEDS: ASPIRIN 81 MG ECTAB PO SCH (07:56)
[2023-05-30] MEDS: FAMOTIDINE 20 MG TAB PO SCH ×2 (07:56→20:19)
[2023-05-30] MEDS: METOPROLOL SUCC 25MG EXT REL TAB PO SCH (07:56)
[2023-05-30] MEDS: CHOLECALCIFEROL 1,000 UNITS 25 MCG TAB PO SCH (07:56)
[2023-05-30] MEDS: ADVANCED PROBIOTIC 1250 MG CAPSULE PO SCH (07:56)
[2023-05-30] MEDS: FLUTICASONE/VILANTEROL 200/25MCG 14 PUFFS/INHALER INH SCH (07:57)
[2023-05-30] MEDS: INSULIN ASPART PER UNIT CHARGE SC SCH ×4 (09:17→21:00)
[2023-05-30 13:21] LABS: BUN Creatinine Ratio 19.5 (10-20); Calcium 9.2 mg/dl (8.6-10.3); Creatinine Clr Calc Pharmacy 66.1 ml/min; Est GFR (African American) 85.1 ml/min; Est GFR (Non-African American) 73.4 ml/min; Potassium 3.7 mmol/L (3.5-5.1)
--- NOTE | 2023-05-30 13:53 | Hospitalist Progress Note ---
Date of Service May 30, 2023 Assessment & Plan (1) Diverticulitis: Plan: (1) Diverticulitis of large intestine with complication: Plan per previous attending notes with addendum: Ms. 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 Surgery and Urology on consult at this time--plan to advance diet as tolerated and continue IV antibiotics in interim. Given complex presentation with fistula formation, ID consulted to inquire about need/appropriate suppressive antibiotics/duration of current regimen at this time. Tolerating low fiber diet in the interim, noted diarrhea, but less diverticular pain per the patient's report. Concerns over increased vaginal discharge that is brown in color; informed patient that if fistula remains patent, this is going to be the case until further intervention can be scheduled. Reviewed Infectious disease notes and due to the complicated diverticulitis with abscess/fistula formation recommends IV antibiotics for 4-[address] imaging with oral contrast in 3-4 weeks, as well as plan for ID appointment in 6-7 weeks. Patient conflicted on discharge options as she is not sure how to care for self, but then has hesitance for facility given elderly cat at home. #Complicated diverticulitis with abscess and ?colovesical fistula -Failed course of Augmentin as OP -continue zosyn q 8hours -CLD at this time -Surgery/Urology consults: no acute surgical intervention, plan for OP c-scope when flare resolves, may require elective procedure in future, no cystoscopy -Tylenol q8h 1000g pain control prn -ID consult to discuss duration of IV abx and suppressive regimen -IV zosyn q8h 4-6weeks -Repeat po contrast CT abd/p in 3-4 weeks -ID follow up OP in 6-7 weeks with any ID physician -PICC line to be placed today 05/29 Reporting left lower quadrant pain today Repeat CT abdomen and pelvis with IV contrast showing stability to moderately de creased diverticulitis LFTs mildly increased, possibly secondary to infection and having antibiotics Will need to be monitored We will need 4 to 6 weeks of IV Zosyn Repeat CT abdomen pelvis in 3 to 4 weeks Follow-up with ID Patient deciding whether to transition to longterm facility or return home with home health services Patient's daughter more leaning towards patient going to longterm facility for assistance with IV antibiotics 05/30 Patient remained stable today No abdominal pain Anticipate discharge home tomorrow with IV antibiotic #Chronic diarrhea/IBS -CTM, trial probiotics, historically has not responded well with bentyl given "hallucinations" #Chronic HFpEF #Right Heart Failure -Home: Losartan 100mg, Spironolactone 12.5mg -Decline lasix as OP, will follow fluid status while inpatient -Heart Healthy diet, low fiber when able -Resume low dose losartan given relatively soft pressures, increase as tolerated -on spironolactone-resume tomorrow, losartan at 50mg-resume today #Paroxysmal SVT/AVNRT -Continue flecainide 50mg BID -Wishes to discontinue verapamil 180mg daily as PCP was transitioning to Metoprolol -Continue Metoprolol XL 25 #DMTII -A1C 7.7%, on home metformin SSI while admitted #ASCVD #Prior CEA -Continue ASA -Intolerant to statins, holding zetia 2/2 GI issues #Chronic hypoxic respiratory failure #MASSIMO -Wean O2 >92% -CPAP #Chronic Leukocytosis #MGUS Stable, follows Dr Muniz DVT enoxaparin Admission and Anticipated Discharge Date Admission Date: May 22, 2023 Subjective Follow-up for diverticulitis, etc. Seen resting in bed, comfortable, not in distress States that she feels fine overall No abdominal pain today No nausea or vomiting Positive BM No fevers or chills No other symptoms Review of Systems Review of Systems: all noted and negative except for above Physical Exam Physical Exam: General- oriented x 3, not in distress, speaks in sentences with no effort or accessory muscle use Eyes- anicteric Neck- no JVD Lungs- clear breath sounds BL no rales/wheezing Heart- normal rate, regular rhythm; no murmurs Abdomen- normal bowel sounds, nondistended, soft, no tenderness Extremities- no pretibial edema, no calf tenderness Neuro- alert, oriented x 3; no gross focal neurologic deficits Skin- warm & dry Results & Data Results & Data Vital Signs (Past 12 Hours) Vital Signs Temp Pulse Resp BP Pulse Ox O2 Del Method 12/01/23 07:31 36.4 C L 66 16 149/80 H 93 Room Air all noted and reviewed including below
[2023-05-30] MEDS: LOSARTAN POTASSIUM 50 MG TAB PO SCH (17:33)
[2023-05-30] MEDS: FEXOFENADINE HCL 180 MG TAB PO SCH (20:19)
[2023-05-31] MEDS: PIPERACILLIN/TAZOBACTAM 4.5 GM in DEXTROSE 5% MINI-B 100 ML IV SCH (05:08)
[2023-05-31] MEDS: ENOXAPARIN INJ 40 MG/0.4 ML SYR SQ SCH (06:03)
[2023-05-31] MEDS: FLECAINIDE ACETATE 100 MG TABLET PO SCH (06:04)
[2023-05-31] MEDS: METOPROLOL SUCC 25MG EXT REL TAB PO SCH (08:38)
[2023-05-31] MEDS: LOSARTAN POTASSIUM 50 MG TAB PO SCH (08:38)
[2023-05-31] MEDS: FAMOTIDINE 20 MG TAB PO SCH (08:38)
[2023-05-31] MEDS: CHOLECALCIFEROL 1,000 UNITS 25 MCG TAB PO SCH (08:38)
[2023-05-31] MEDS: ASPIRIN 81 MG ECTAB PO SCH (08:38)
[2023-05-31] MEDS: ADVANCED PROBIOTIC 1250 MG CAPSULE PO SCH (08:39)
[2023-05-31] MEDS: INSULIN ASPART PER UNIT CHARGE SC SCH ×2 (08:39→12:37)
[2023-05-31] MEDS: FLUTICASONE/VILANTEROL 200/25MCG 14 PUFFS/INHALER INH SCH (08:39)
--- NOTE | 2023-05-31 18:50 | Discharge Summary ---
Discharge Summary Date of Service May 31, 2023 Notes For Next Care Provider Medication Changes From Visit IV Karishmasyn x6 weeks Losartan decreased to 50 mg p.o. daily from 100 mg milligrams p.o. daily Admission HPI Per Admitting Provider Ms. 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 Patient states she has been experiencing abdominal pain and cramping for nearly 2 weeks, which has failed augmentin. She noted that the quality of pain changed yesterday, when her pain became sharp and more suprapubic--noting post-void spasms with urination. There was reports of hematuria last weekend prompting a UA which was negative. She states that she noted that dysuria became more prominent with brown urine in the last 24 hours. She denies fevers, loss of appetite, nausea, vomiting recently. In the ED, vitals were notable for BP of 110-140s, HRs in 70-80s, and O2 sat in high 90s on 1 L NC. Imaging revealed Bowel: Bowel wall thickening and fat stranding is seen in the sigmoid colon. There is a gas and fluid collection measuring approximately 18 mm in diameter which may represent a prominent diverticulum or mural abscess. No dean perforation is seen. There is loss of the fat plane the bowel from the bladder with suggestion of a fistula. The appendix is normal. ED interventions: dhara Patient to be admitted to med surg for further evaluation and management of complicated diverticulitis with ?mural abscess and fistula formation. Admission Exam Per Admitting Provider GENERAL APPEARANCE: AxOx4, generally well-appearing F, no acute distress. HEENT: NC, AT. MMM. EOMI, clear conjunctiva, oropharynx clear. NECK: Supple without lymphadenopathy. No stiffness or restricted ROM. HEART: Normal rate and regular rhythm, normal S1/S1, no m/r/g LUNGS: CTAB, moving air well. No crackles or wheezes are heard. ABDOMEN: Soft, nondistended, tender with moderate palpation over LLQ/suprapubic area EXTREMITIES: Without cyanosis, clubbing, 1+ edema BLE, r>L NEUROLOGICAL: Grossly nonfocal. Alert and oriented, moving all 4 extremities. CN not formally tested but appear grossly intact. Skin: Warm and dry without any rash. Principal Dx & Hospital Course #1 = Principal Diagnosis (1) Diverticulitis: per Dr. Cadet's notes with addendum: (1) Diverticulitis of large intestine with complication: Plan per previous attending notes with addendum: Ms. 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 Surgery and Urology on consult at this time--plan to advance diet as tolerated and continue IV antibiotics in interim. Given complex presentation with fistula formation, ID consulted to inquire about need/appropriate suppressive antibiotics/duration of current regimen at this time. Tolerating low fiber diet in the interim, noted diarrhea, but less diverticular pain per the patient's report. Concerns over increased vaginal discharge that is brown in color; informed patient that if fistula remains patent, this is going to be the case until further intervention can be scheduled. Reviewed Infectious disease notes and due to the complicated diverticulitis with abscess/fistula formation recommends IV antibiotics for 4-[address] imaging with oral contrast in 3-4 weeks, as well as plan for ID appointment in 6-7 weeks. #Complicated diverticulitis with abscess and ?colovesical fistula -Failed course of Augmentin as OP -Surgery/Urology consults: no acute surgical intervention, plan for OP c-scope when flare resolves, may require elective procedure in future, no cystoscopy -ID consult to discuss duration of IV abx and suppressive regimen -IV zosyn q8h 4-6weeks -Repeat po contrast CT abd/p in 3-4 weeks, -ID follow up OP in 4 weeks with any ID physician, will decide duration of IV Zosyn based upon clinical presentation and repeat CT scan of abdomen and pelvis -PICC line placed -Patient will need weekly CBC, CMP while on IV antibiotics, please follow-up results #Chronic diarrhea/IBS -CTM, trial probiotics, historically has not responded well with bentyl given "hallucinations" #Chronic HFpEF #Right Heart Failure -Home: Losartan 100mg, Spironolactone 12.5mg -Losartan reduced to 50 mg daily to prevent hypotension #Paroxysmal SVT/AVNRT -Continue flecainide 50mg BID -Wishes to discontinue verapamil 180mg daily as PCP was transitioning to Metoprolol -Continue Metoprolol XL 25 #DMTII -A1C 7.7%, on home metformin SSI while admitted #ASCVD #Prior CEA -Continue ASA -Intolerant to statins, holding zetia 2/2 GI issues #Chronic hypoxic respiratory failure #MASSIMO Stable -CPAP #Chronic Leukocytosis #MGUS Stable, follows Dr Muniz Discharge Exam General- oriented x 3, not in distress, speaks in sentences with no effort or accessory muscle use Eyes- anicteric Neck- no JVD Lungs- clear breath sounds bilaterally, no rales/wheezes Heart- normal rate, regular rhythm; no murmurs Abdomen- normal bowel sounds, nondistended, soft, nontender Extremities- no pretibial edema, no calf tenderness Neuro- alert, oriented x 3; no gross focal neurologic deficits Skin- warm & dry Updated Medication List Medication Instructions Recorded Confirmed Type aspirin 81 mg tablet,delayed 81 mg PO QAM 05/19/18 05/22/23 History release (Andreas Low Dose Aspirin) cholecalciferol (vitamin D3) 25 1,000 unit PO QAM 05/19/18 05/22/23 History mcg (1,000 unit) capsule (Vitamin D3) famotidine 20 mg tablet (Pepcid) 20 mg PO BID 05/19/18 05/22/23 History metformin 500 mg tablet 500 mg PO QAM 05/19/18 05/22/23 History multivitamin 1 tab PO QAM 05/19/18 05/22/23 History fluticasone furoate 200 1 inh inhalation QAM 11/18/18 05/22/23 History mcg-vilanterol 25 mcg/dose inhalation powder (Breo Ellipta) albuterol sulfate 90 mcg/actuation 2 puff inhalation Q4H PRN 09/18/19 05/22/23 History aerosol inhaler (ProAir HFA) Cough,SOB or Wheeze fexofenadine 180 mg tablet 180 mg PO QPM 11/28/20 05/22/23 History levalbuterol HCl 0.63 mg/3 mL 0.63 mg inhalation DIRECTED PRN 11/28/20 05/22/23 History solution for nebulization (Xopenex) Shortness Of Breath Or Wheezing spironolactone 25 mg tablet 12.5 mg PO QAM 10/12/21 05/22/23 History flecainide 50 mg tablet 50 mg PO Q12H 08/26/22 05/22/23 History simethicone 180 mg capsule 180 mg PO BID PRN STOMACH PAIN 08/26/22 05/22/23 History losartan 100 mg tablet 50 mg (1/2 x 100 mg) PO QAM #30 05/31/23 05/22/23 Rx tabs metoprolol succinate 25 mg 25 mg PO QAM 30 days #30 tabs 05/31/23 Rx tablet,extended release 24 hr piperacillin-tazobactam 4.5 4.5 g (112.5 mL) IV Q8H 42 days 05/31/23 Rx gram/100 mL dextrose(iso-osm) IV #4,725 mL piggyback (Zosyn) Hospital Stay Data Consultations 05/22/23 15:59 ED Decision to Admit Stat 05/22/23 17:08 Consult General Surgery Routine Consult Urology Routine 05/23/23 12:46 Consult Infectious Diseases Routine 05/27/23 11:56 Consult Infectious Diseases Routine Diagnostic Imagining Performed Laboratory Results WBC 9.73 K/ul (4.8-10.8) 05/29/23 16:48 RBC 3.81 M/uL (4.20-5.40) L 05/29/23 16:48 Hgb 10.3 g/dl (12.0-16.0) L 05/29/23 16:48 Hct 33.9 % (37.0-47.0) L 05/29/23 16:48 MCV 89.0 fL (80.0-100.0) 05/29/23 16:48 MCH 27.0 pg (25.0-34.0) 05/29/23 16:48 MCHC 30.4 g/dL (32.0-36.0) L 05/29/23 16:48 RDW Std Deviation 44.6 fL (36.4-46.3) 05/29/23 16:48 RDW Coeff of Tasha 14.0 % (11.5-14.5) 05/29/23 16:48 Plt Count 355 K/uL (130-400) 05/29/23 16:48 MPV 9.5 fL (9.4-12.4) 05/29/23 16:48 Immature Gran % (Auto) 0.3 % 05/29/23 16:48 Neut % (Auto) 74.7 % 05/29/23 16:48 Lymph % (Auto) 15.1 % 05/29/23 16:48 Mccracken % (Auto) 7.3 % 05/29/23 16:48 Eos % (Auto) 2.0 % 05/29/23 16:48 Baso % (Auto) 0.6 % 05/29/23 16:48 Neut # (Auto) 7.27 K/uL (1.40-6.50) H 05/29/23 16:48 Lymph # (Auto) 1.47 K/uL (1.20-3.40) 05/29/23 16:48 Mccracken # (Auto) 0.71 K/uL (0.11-0.59) H 05/29/23 16:48 Eos # (Auto) 0.19 K/uL (0.00-0.50) 05/29/23 16:48 Baso # (Auto) 0.06 K/uL (0.00-0.20) 05/29/23 16:48 Immature Gran # (Auto) 0.03 K/uL (0.01-0.20) 05/29/23 16:48 PT 11.6 Seconds (9.0-12.0) 05/22/23 13:25 INR 1.1 (0.9-1.1) 05/22/23 13:25 APTT 26.8 Seconds (21.0-31.0) 05/22/23 13:25 PTT Ratio 1.0 05/22/23 13:25 Sodium 140 mmol/L (136-145) 05/30/23 12:42 Potassium 3.7 mmol/L (3.5-5.1) 05/30/23 12:42 Chloride 105 mmol/L (98-107) 05/30/23 12:42 Carbon Dioxide 28 mmol/L (21-32) 05/30/23 12:42 Anion Gap 7 (3-11) 05/30/23 12:42 BUN 15 mg/dl (6-23) 05/30/23 12:42 Creatinine 0.77 mg/dl (0.6-1.2) 05/30/23 12:42 Est Cr Clr Drug Dosing 66.1 ml/min 05/30/23 12:42 Est GFR ( Amer) 85.1 ml/min 05/30/23 12:42 Est GFR (Non-Af Amer) 73.4 ml/min 05/30/23 12:42 BUN/Creatinine Ratio 19.5 (10-20) 05/30/23 12:42 Glucose 135 mg/dl (70-99(Fasting)) H 05/30/23 12:42 POC Glucose 127 mg/dl (70-99) H 05/31/23 11:54 Estimat Average Glucose 174 mg/dl 05/23/23 06:11 Hemoglobin A1c 7.7 % (4.5-5.6) H 05/23/23 06:11 Calcium 9.2 mg/dl (8.6-10.3) 05/30/23 12:42 Phosphorus 3.9 mg/dl (2.5-4.9) 05/26/23 07:44 Magnesium 2.2 mg/dl (1.7-2.4) 05/26/23 07:44 Total Bilirubin 0.5 mg/dl (0.2-1.0) 05/29/23 16:48 AST 48 U/L (13-39) H 05/29/23 16:48 ALT 60 U/L (7-52) H 05/29/23 16:48 Alkaline Phosphatase 131 U/L (34-104) H 05/29/23 16:48 Total Protein 6.8 gm/dl (6.0-8.3) 05/29/23 16:48 Albumin 3.6 gm/dl (3.4-5.0) 05/29/23 16:48 Globulin 3.2 gm/dl (2.5-4.0) 05/29/23 16:48 Albumin/Globulin Ratio 1.1 (0.9-2) 05/29/23 16:48 Lipase 15 U/L (11-82) 05/29/23 16:48 Urine Color Yellow 05/22/23 14:50 Urine Appearance Cloudy (Clear) A 05/22/23 14:50 Urine pH 5.5 (4.5-7.5) 05/22/23 14:50 Ur Specific [place] 1.015 (1.000-1.030) 05/22/23 14:50 Urine Protein Negative (Negative) 05/22/23 14:50 Urine Glucose (UA) Negative (Negative) 05/22/23 14:50 Urine Ketones Negative (Negative) 05/22/23 14:50 Urine Blood Trace (Negative) H 05/22/23 14:50 Urine Nitrite Negative (Negative) 05/22/23 14:50 Urine Bilirubin Negative (Negative) 05/22/23 14:50 Urine Urobilinogen Negative (Negative) 05/22/23 14:50 Ur Leukocyte Esterase 2+ (Negative) H 05/22/23 14:50 Urine WBC (Auto) >30 /hpf (0-5) H 05/22/23 14:50 Urine RBC (Auto) 0-4 /hpf (0-4) 05/22/23 14:50 U Hyaline Cast (Auto) 5-10 /lpf (0-5) H 05/22/23 14:50 U Epithel Cells (Auto) 5-10 /lpf (0-5) H 05/22/23 14:50 Urine Bacteria (Auto) Negative (Negative) 05/22/23 14:50 Stl C. cayetanensis PCR Not Detected (NotDetected) 05/24/23 16:10 Stool Rotavirus A PCR Not Detected (NotDetected) 05/24/23 16:10 Stl Adenov F 40/41 PCR Not Detected (NotDetected) 05/24/23 16:10 Stool Astrovirus (PCR) Not Detected (NotDetected) 05/24/23 16:10 Stool Campylobacter PCR Not Detected (NotDetected) 05/24/23 16:10 Stl C. diff Tox B Gene Negative Cdiff Gene (Neg) 05/24/23 16:10 Stool Cryptosporidium PCR Not Detected (NotDetected) 05/24/23 16:10 Stl E.coli Shiga Tox PCR Not Detected (NotDetected) 05/24/23 16:10 Stl Enterotoxigenic E PCR Not Detected (NotDetected) 05/24/23 16:10 Stool EPEC (PCR) Not Detected (NotDetected) 05/24/23 16:10 Stool EAEC (PCR) Not Detected (NotDetected) 05/24/23 16:10 Stl E. histolytica PCR Not Detected (NotDetected) 05/24/23 16:10 Stool Giardia Lamblia PCR Not Detected (NotDetected) 05/24/23 16:10 Stool Salmonella PCR Not Detected (NotDetected) 05/24/23 16:10 Stool Sapovirus (PCR) Not Detected (NotDetected) 05/24/23 16:10 Stl P. shigelloides PCR Not Detected (NotDetected) 05/24/23 16:10 Stl Shigella/EIEC PCR Not Detected (NotDetected) 05/24/23 16:10 St Y.enterocolitica PCR Not Detected (NotDetected) 05/24/23 16:10 Stool Vibrio (PCR) Not Detected (NotDetected) 05/24/23 16:10 Stl Vibrio cholerae PCR Not Detected (NotDetected) 05/24/23 16:10 Stl Norovirus GI/GII PCR Not Detected (NotDetected) 05/24/23 16:10 SARS-CoV-2 (PCR) NEGATIVE (Negative) 05/31/23 11:35 Impressions Abdomen/Pelvis CT 05/29/23 15:57 CT abd pelvis IV con only CLINICAL HISTORY: left sided pain, ff up diverticulitis TECHNIQUE: Helical axial images of the abdomen and pelvis were obtained and displayed. Automated dose lowering techniques and/or adjustment according to patient size were utilized for this exam. This exam was performed with intravenous contrast. CT DOSE: 1366.67 mGy.cm COMPARISON: Comparison is made to CT abdomen pelvis 05/22/2023 FINDINGS: Lower chest: Bibasilar atelectasis versus scarring is seen. Liver: Unremarkable. No focal lesions are seen. Gallbladder and biliary tree: Patient is status post cholecystectomy. No intra- or extrahepatic biliary ductal dilation. 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 This is unchanged from prior exam. Spleen: Unremarkable. Adrenals: Unremarkable. 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 Bladder: Again noted is tethering of the left superior aspect of the bladder. Reproductive organs: Patient is status post hysterectomy. Bowel: Again noted is bowel thickening in the distal descending and sigmoid colon, the extent of thickening is minimal decreased from prior exam. However, the colovesicular fistula is again seen. Previously noted gas and fluid collection appears essentially unchanged. The appendix is normal. Lymph nodes Retroperitoneal: Subcentimeter lymph nodes are noted. Pelvic: Unremarkable. Mesenteric: Unremarkable. Peritoneum: Peritoneal stranding is again seen about the inflamed portion of bowel. No pneumoperitoneum or definitely separate abscess is seen. Vessels: Unremarkable. Abdominal wall: Injection granulomata are seen. Bones: Degenerative changes in the visualized spine. IMPRESSION: Interval stability to minimal decrease in previously noted diverticulitis. Redemonstration of a colovesical fistula and gas and fluid collection which may represent a prominent diverticulum, less likely abscess. ACT 112: Negative or not required by law. Electronically signed by: Andrew Garcia M.D. 05/29/2023 5:56 PM Pending Results Patient Have Any Pending Studies at Discharge: Yes Discharge Instructions Given to Patient (Per Discharging Provider) PLEASE REFER TO YOUR NEW MEDICATION LIST AND FOLLOW INSTRUCTIONS CAREFULLY. YOUR NEW MEDICATIONS INCLUDE: IV piperacillin tazobactam (Zosyn)-antibiotic for diverticulitis; to be taken f or at least 4 to 6 weeks; do not discontinue unless discussed with [facility] infectious disease specialist Please take a probiotic daily for at least 2 months. Renewlife is recommended. Please make sure to hydrate adequately every day. Ambulate frequently. YOU WILL NEED WEEKLY BLOOD TESTS INCLUDING COMPLETE BLOOD COUNT AND COMPLETE METABOLIC PROFILE WHILE ON IV ANTIBIOTICS. RESULTS WILL BE FORWARDED TO YOUR PRIMARY CARE PHYSICIAN FOR REVIEW. YOU WILL ALSONEED A REPEAT CT SCAN OF THE ABDOMEN PELVIS WITH CONTRAST IN 3 TO 4 WEEKS TO REEVALUATE THE DIVERTICULITIS. YOU WILL ALSO NEED TO FOLLOW-UP WITH [facility] INFECTIOUS DISEASE SPECIALIST DR.DARRELL PINEDO IN 4 WEEKS SO HE CAN REVIEW THE CAT SCAN AND ADVISE YOU REGARDING CONTINUATION OF YOUR IV ANTIBIOTICS. YOUR PRIMARY CARE PHYSICIAN CAN ASSIST YOU WITH ARRANGING APPOINTMENTS FOR ABOVE. PLEASE CALL YOUR PRIMARY CARE PHYSICIAN OR RETURN TO THE ER IF WITH WORSENING OF SYMPTOMS, INCLUDING Abdominal pain, fevers or chills, nausea vomiting, changes with bowel movements, etc. FOLLOW UP WITH PRIMARY CARE PHYSICIAN OUTLINED ABOVE. TAKE CARE PLEASE. Total Time Total Time Spent Total Time Spent (In Minutes): >30 minutes
== END 2023-05-31 14:00 | disposition home health service (06) | DRG 392 ==
LOC: ED 12:54 → SUATTDRO 16:49 → 3W 16:49

== ENCOUNTER 2024-03-14 15:01 | Observation (INO) ==
--- OUTSIDE RECORDS SUMMARY | 2024-03-14 15:10 | External Medical Summary | Summary of Care ---
Author Name Unknown Organization [facility] Address [address] [place] [facility] [place] [place] [address] Phone [phone] Care Team Providers Care Special Agent Secret Service Name Role Phone Andrae Hays MD Primary Care Provider + Reason for Visit * Reason Onset Date Comments Appointment 03/12/2024 Encounter Details Date Type Department Care Team (Late st Contact Info) Description 03/12/2024 Telephone General Internal Medicine [facility] [address] [place] [address] Andrae Hays MD [address] [place] [address] Appointment Allergies Active Allergy Reactions Criticality Noted Date Comments Daniel Inhibitors Cough Medium 02/16/2014 Cefaclor 02/28/1993 hives Erythromycin 06/26/2000 Hives Etodolac 06/26/2000 Does not remember Hyoscyamine Other (Please comment) 02/08/2013 hallucinations Ipratropium Other (Please comment) Low 12/10/2016 Says she feels her lungs get itchy when she uses it Levofloxacin Hemihydrate 06/26/2000 "brain fog" Saccharin Cough Medium 11/13/2011 Related to sulfa allergy Sorbitol Abdominal pain Low 12/10/2012 Sugar alcohol Sulfa Antibiotics Hives Medium 06/26/2000 hives as child, saccharin Sulfites 08/02/2016 wheezing documented as of this encounter (statuses as of 03/12/2024) Medications Medication Sig Dispensed Refills Start Date End Date Status ADULT MASK DEVIIndications:Sleep apnea,Asthma, allergic as directed 1 2 07/31/2005 Active NEBULIZER COMPRESSOR KITIndications:Asthma, allergic Use as directed 1 Kit 0 04/10/2012 Active VITAMIN D 1000 UNITS PO CAPS 1 dailly Active Aspirin 81 MG Oral Tablet Delayed Release Take 1 Tablet by mouth in the morning. Active oxygen GAS 3 LPM bled through CPAP 7 cwp during all hours of sleep. 1 Each 0 11/17/2015 Active Respiratory Therapy Supplies (NEBULIZER AIR TUBE/PLUGS) MISCIndications:Asthma , allergic Use as directed 1 Each 12/17/2016 Active Blood Glucose Monitoring Suppl (CONTOUR NEXT ONE) KITIndications:Type 2 diabetes mellitus with hemoglobin A1c goal of less than 7.0% ([facility]) Use as directed. Dx E11.9 1 Kit 04/03/2018 Active acetaminophen (TYLENOL) 500 MG Tablet Take 1 Tablet by mouth in the morning and 1 Tablet before bedtime. 100 Tab 03/15/2019 Active Simethicone 125 MG CAPS Take 1 Tab by mouth as needed. Active Centrum Silver 50+Women Oral Tablet Take 1 Tab by mouth daily. Active oxygen IN GASIndications:Chronic respiratory failure with hypoxia (HCC) 1 LPM via nasal cannula with ambulation 1 Each 07/23/2022 Active Hydrocortisone (Perianal) 2.5 % External Cream (Anusol-HC)Indications :Hemorrhoids, unspecified hemorrhoid type Administer into the rectum 2 times a day. 28 g 3 10/12/2022 Active Fluticasone Furoate-Vilanterol 200-25 MCG/ACT Inhalation Aerosol Powder Breath Activated (BREO ellipta)Indications:CO PD, group B, by GOLD 2017 classification ([facility]) USE 1 INHALATION BY MOUTH DAILY 180 Each 3 06/02/2023 Active metFORMIN HCl ER 500 MG Oral Tablet Extended Release 24 Hour (Glucophage XR)Indications:Type 2 diabetes mellitus with hemoglobin A1c goal of less than 7.0% ([facility]) Take 1 Tablet by mouth in the morning. 90 Tablet 3 06/05/2023 Active Verapamil HCl ER 120 MG Oral Tablet Extended Release (Isoptin SR)Indications:Paroxys mal SVT (supraventricular tachycardia) ([facility]),AVNRT (AV carleen re-entry tachycardia) ([facility]),HTN, goal below 140/90 Take 1 Tablet by mouth in the morning. 90 Tablet 3 06/24/2023 Active Albuterol Sulfate HFA 108 (90 Base) MCG/ACT Inhalation Aerosol Solution Inhale 2 Puffs by mouth every 4 hours as needed for Cough, Shortness of Breath or Wheezing. 36 g 1 07/29/2023 Active Levalbuterol HCl 0.63 MG/3ML Inhalation Nebulization Solution (Xopenex) Inhale 3 mL via nebulizer every 6 hours as needed for Wheezing or Shortness of Breath. Dx J44.9 270 mL 3 08/04/2023 Active Losartan Potassium 100 MG Oral Tablet (Cozaar)Indications:HT N, goal below 140/90 TAKE 1 TABLET BY MOUTH ONCE DAILY 90 Tablet 3 10/27/2023 Active CPAP every night at bedtime. Active Ondansetron 4 MG Oral Tablet Disintegrating (Zofran) Place 1 Tablet on tongue every 8 hours as needed for Other (post op nausea/vomiting) . dissolve on tongue. 12 Tablet 11/21/2023 Active Spironolactone 25 MG Oral Tablet (Aldactone)Indications :HTN, goal below 140/90 Take 1 Tablet by mouth in the morning. 90 Tablet 3 12/05/2023 Active Furosemide 20 MG Oral Tablet (Lasix)Indications:Chr onic edema Take 1 Tablet by mouth as needed (edema). as directed 2-3 days per week for edema 60 Tablet 3 12/05/2023 Active Accu-Chek FastClix LancetsIndications:Typ e 2 diabetes mellitus with hemoglobin A1c goal of less than 7.0% (HCC) Test twice daily as directed. Pt has this style lancing device at home already. DX E11.9 100 Each 5 12/25/2023 Active Contour Next Test In Vitro Strip (Glucose Blood)Indications:Type 2 diabetes mellitus with hemoglobin A1c goal of less than 7.0% ([facility]) Test twice daily as directed. Dx E11.9. 100 Strip 5 12/25/2023 Active Flecainide Acetate 50 MG Oral Tablet (Tambocor)Indications: PSVT (paroxysmal supraventricular tachycardia) ([facility]),AVNRT (AV carleen re-entry tachycardia) ([facility]) TAKE ONE TABLET BY MOUTH TWICE A DAY IN THE MORNING AND BEFORE BEDTIME 180 Tablet 3 01/08/2024 Active Famotidine 20 MG Oral Tablet (Pepcid)Indications:GE RD (gastroesophageal reflux disease) TAKE 1 TABLET BY MOUTH TWICE DAILY 180 Tablet 3 01/31/2024 Active Debrox 6.5 % Otic Solution (Carbamide Peroxide)Indications:B ilateral impacted cerumen Administer 5 Drops into ears. Fill ear canal and insert cotton plug. Remove plug after 15 to 30 minutes. 03/12/2024 Active documented as of this encounter (statuses as of 03/12/2024) Active Problems Problem Noted Date Diagnosed Date Colovesical fistula 03/12/2024 Pancreas cyst 11/28/2023 Hidradenitis suppurativa 11/19/2022 Chronic obstructive pulmonary disease [...] complication 10/14/2018 History of tobacco abuse 10/14/2018 Dysphagia 10/14/2018 Statin intolerance 06/08/2018 Paroxysmal [...] Overview: With CPAP Dyslipidemia, goal LDL below 70 11/20/2015 S/P carotid endarterectomy 09/29/2015 Carotid stenosis, non-symptomatic 09/29/2015 Asthma, moderate persistent 01/23/2015 GERD (gastroesophageal reflux disease) 3 Diverticulosis of colon 06/20/2011 Allergic rhinitis due to pollen 02/08/2011 Knee joint replacement status 03/28/2010 Overview: left Dr Doherty, [facility] Type 2 diabetes mellitus wit h hemoglobin A1c goal of less than 7.0% 06/07/2009 Overview: ICD-10 update of inactive term Vitamin D deficiency 05/25/2009 Primary localized osteoarthrosis, lower leg 03/01 Osteoporosis 07/14/2002 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 Overview: [place] 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 Irritable bowel syndrome Chronic sinusitis MASSIMO on CPAP Overview: CPAP 7 cwp 3 LPM AHP documented as of this encounter (statuses as of 03/12/2024) Resolved Problems Problem Noted Date Diagnosed Date Resolved Date Diverticulitis of sigmoid colon 11/18/2023 03/12/2024 Neuropathy 05/22/2020 07/23/2021 At risk for aspiration 10/14/201803/12 Retinal tear, left 04/01/2018 9 Retina hole, [...] as of this encounter (statuses as of 03/12/2024) Immunizations Name Administration Dates Next Due COVID-19 mRNA, LNP-s, No Pre serve, 2-Dose Series (Sight[employer]ix) 02/23/2021,08/26/2020,08/05/2020 COVID-19, LNP-s, No Preserve , Jasbir-sucrose, Ages 12+ (Pfizer) 09/26/2021 COVID-19, MRNA-LNP, 23-24, P F, 30 MCG/0.3 mL, 12 YRS AND ABOVE, IM (PFIZER-Comirnaty) 03/22/2023 Covid-19, Mrna, Lnp-s, Pf, B ivalent, 30 Mcg, IM, 12 yrs and above (Sightlogix) 03/08/2022 H1N1 2009 Influenza, IM 07/19/2009 PPD 08/26/2013 Pneumococcal Conjugate Vacc, 13 Valent (Prevnar) 04/28/2015 Pneumococcal Conjugate Vacci ne, 7 Valent 06/30/1998 Pneumococcal Polysaccharide PPV23 (Pneumovax) 09/24/2017,03/23/2009 Season Influenza, Quad, PF, Adjuvanted, 65+ Yrs, IM (FLUAD) 03/07/2022,03/07/2020 Seasonal Influenza Virus Vac cine, Unspecified Formulation 03/28/2021,03/07/2020,04/23/2019,04/01,03/27/2017,03/29/2016,03/11/2016 ,03/31/2014,04/20/2013,03/09/2012,03/01,05/01/2010,03/23/2009, 8,05/13/2006,05/08/2005,04/18/2004,06/1999,04/28/2000 Seasonal Influenza, High Dos e, Trivalent, PF, IM (Fluzone HD) 03/12/2024,04/23/2019 Seasonal Influenza, PF, 6 M & above, IM , (FluLaval or Fluzone) 04/01/2018,03/27/2017 Seasonal Influenza, Quadriva lent Hd (Fluzone Hd) 04/04/2023,03/07/2022,03/28/2021 Seasonal Influenza, Quadriva lent, No Preserve, IM 03/11/2016,03/28/2015 Seasonal Influenza, Trivalen t, (IIV3), with Preserv, (Fluzone) 03/29/2016,03/31/2014,04/20/2013,03/09,03/19/2011,05/01/2010,03/23/2009 ,05/04/2008,05/13/2006 TDAP (age 10 and older)(Boostrix) 12/08/2021 TDAP, Age 7 and older, IM (Adacel) 02/11/2008 Varicella Zoster Vaccine (Adult) 09/07/2008 Zoster Vaccine Recombinant (Shingrix) 09/07/2008 documented as of this encounter Social History Tobacco Use Types Packs/Day Years Used Date Smoking Tobacco: Former Cigarettes 1 30 1 986 - 2016 Smokeless Tobacco: Never Alcohol Use Standard Drinks/Week Comments No 0 (1 standard drink = 0.6 oz pur e alcohol) PHQ-2 Answer Date Recorded PHQ Adult Total Score 0 06/03/2023 Hunger Vital Sign Answer Date Recorded Within the past 12 months, y ou worried that your food would run out before you got the money to buy more. Never true 12/23/19 Within the past 12 months, t he food you bought just didn't last and you didn't have money to get more. Never true 12/23/2023 Childcare Answer Date Recorded Do you feel overwhelmed with taking care of a child, family member or friend? No 12/23/2023 Does your family need help f inding childcare? (Household - for ages 0-17 years) Not on file 12/23/2023 Clothing Answer Date Recorded Have you been unable to get clothing when it was really needed? No 12/23/2023 Is your family able to get c lothes or diapers when needed? (Household - for ages 0-17 years) Not on file 12/23/2023 Personal Safety Answer Date Recorded Do you feel unsafe or have concerns for your saf ety? No 12/23/2023 Do you have concerns for you r family's safety? (Household - for ages 0-17 years) Not on file 12/23/2023 Utilities Answer Date Recorded Do you have trouble paying y our heating, water, or electric bill? No 12/23/2023 Is your family able to pay t he heat, water, or electric bill? (Household - for ages 0-17 years) Not on file 12/23/2023 Does your family have access to good internet? (Household - for ages 0-17 years) Not on file 12/23/2023 Employment Status Answer Date Recorded Are you unemployed or without regular income? No 12/23/2023 Does the household have a re gular source of income? (Household - for ages 0-17 years) Not on file 12/23/2023 Social Connections Answer Date Recorded How often do you feel lonely or isolated from th ose around you? Never 12/23/2023 Financial Resource Strain Answer Date R ecorded Do you have any trouble payi ng for your medications, or do you think you might in the future? No 12/23/2023 Does your family have troubl e paying for medicine? (Household - for ages 0-17 years) Not on file 12/23/2023 Transportation Needs Answer Date Record ed READ ONLY Do you have troubl e getting a ride to medical visits or work? Never True 12/23/2023 Does your family have a hard time getting a ride to doctors visits? (Household - for ages 0-17 years) Not on file 12/23/2023 Has lack of transportation k ept you from medical appointments, meetings, work, or from getting things needed for daily living? Check all that apply. No 12/23/2023 Do you (or your family) have trouble finding or paying for a ride (transportation)? (Household - for ages 0-17 years) Not on file 12/23/2023 Housing Stability Answer Date Recorded Do you currently live in a s helter or have no steady place to sleep at night? No 12/23/2023 READ ONLY Do you think you a re at risk of becoming homeless? No 12/23/2023 Does your family worry about paying for your home or becoming homeless? (Household - for ages 0-17 years) Not on file 0 12/23/2023 Are you homeless or worried that you might be in the future? No 12/23/2023 Are you (or your family) vanessa eless or worried that you might be in the future? (Household - for ages 0-17 years) Not on file Food Insecurity Answer Date Recorded Do you need food for this week? No 12/23/2023 Are you able to get enough f ood for your family? (Household - for ages 0-17 years) Not on file 12/23/2023 Does your family need food t his week? (Household - for ages 0-17 years) Not on file 12/23/2023 Do you always have enough fo od for your family? (Household - for ages 0-17 years) Not on file 12/23/2023 Sex and Gender Information Value Date Recorded [...] encounter Miscellaneous Notes * Telephone Encounter - Maya Gong OSA - 03/12/2024 12:30 PM EDT PT orders faxed to [facility] fax successful Swallowing test was faxed to [facility] and fax was successful documented in this encounter Plan of Treatment Upcoming Encounters Date Type Department Care Team (Late st Contact Info) Description 03/15/2024 11:00 AM EDT Office Visit Cardiology, [facility] [address] [address] Macario Liu MD [address] [place] [address] 03/24/2024 2:00 PM EDT Imaging Vascular Lab, [facility] 2nd Floor, [place] [address] [address] 04/19/2024 11:45 AM EDT Office Visit Ophthalmology, [facility] [address] [address] Junior Mcnamara DO [address] [place] [address] 04/29/2024 3:35 PM EDT Office Visit Urogynecology [facility] [address] [facility] [place] [address] Neel James MD [address] [place] [address] [facility] [address] [place] [address] 05/06/2024 12:00 PM EST Office Visit Pulmonary Medicine, [facility] [address] [place] [address] [facility] [address] [facility] [address] 07/12/2024 10:00 AM EST [facility] [address] [place] [address] 07/12/2024 11:20 AM EST Office Visit General Internal Medicine [facility] [address] [facility] [place], [place] [address] Mindi Nesbitt, JOSHUA [address] [facility] [place], [place] [address] 07/16/2024 3:00 PM EST Telemedicine Vascular Surg [facility] [address] [place], [place] [id number] Micha Piedra CRNP [address] [place], [place] [id number] 11/12/2024 11:00 AM EDT Telemedicine Sleep Disorders Ctr [facility] [address] [facility] [place] [id number] Idania Garner CRNP [address] [place] [address] Scheduled Procedures Name Priority Associated Diagnoses Date/Ti me COLONOSCOPY FLEXIBLE PROXIMA L DIAGNOSTIC Recall Hx of diverticulitis of colon Health Maintenance Due Date Last Done Comments Zoster Vaccines (2 of 2) 11/02/2008 09/07/2008, 08/28 Adult Wellness Visit 2010 *BISPHONATE OR OTHER ACCEPTABLE MEDICATION NEEDED FOR OSTEOPOROSIS (REFER TO SMARTSET #1146) 12/06/2018 B-12 12/06/2023 12/05/2022, 12/29, 10/18/2021, Additional history exists COVID-19 Vaccine ( season) 2024 03/22/2023, 03/08/2022, 09/26/2021, Additional history exists Diabetic Foot Exam 04/21/2024 04/21/2023, 1 07/16/2021, 04/16/2021, Additional history exists HbA1c 05/09/2024 11/07/2023, 08/01, 05/17/2023, Additional history exists Depression Monitoring 06/03/2024 06/03/2023 Albumin/Creatinine Ratio 07/04/2024 024, 05/16/2022, 10/29/2021, Additional history exists Diabetic Eye Exam 09/18/2024 09/19/2023, , 09/19/2023, Additional history exists O2 ASSESSMENT COMPLETED IN PAST YEAR FOR COPD 11/16/2024 11/17/2023 GFR 11/27/2024 11/28/2023, 10/29, 11/18/2023, Additional history exists DTap/Tdap Vaccines (3 - Td or Tdap) 12/09/2031 12/08/2021, 02/11/2008, 10/16/1992 Hepatitis B Vaccine Completed 05/14/2002, 12/10/2001, 10/15/2001, Additional history exists DXA Scan Discontinued 08/02/2015, 07/02, 07/29/2011, Additional history exists Pneumococcal Vaccine: 65+ Years Completed 09/24/2017, 04/28/2015, 03/23/2009 Alpha-1 Antitrypsin Completed 05/17/2023 VITAMIN D LEVEL ONCE IN A LIFETIME-USE SMARTSET# [id number] Completed 05/17/2023, 05/27/2022, 01/18/2021, Additional history exists RETIRED - COLONOSCOPY-EVERY 5 YRS AGES 18-100 Discontinued 08/27/2023, 07/23/2011, 09/01/2001, Additional history exists Influenza Vaccine (FLU shot) Completed 03/12/2024, 04/04/2023, 03/07/2022, Additional history exists HPV (Gardasil) Vaccine Aged Out No lo nger eligible based on patient's age to complete this topic MENINGOCOCCAL (MENACTRA/MENVEO) Aged Out No longer eligible based on patient's age to complete this topic documented as of this encounter Medical Devices Implanted Type Area Neurology Professor Device Identifier Shelf Expiration Date Model / Serial / Lot Lens 10.5 Sn60wf - [id number] Implanted:Qty: 1 on 04/27/2014 at OR [facility] Left: Eye [employer] 02/27/2019 [id number].105 / [id number] / Lens 12.5 Sn60wf - [id number] Implanted:Qty: 1 on 05/11/2014 at OR [facility] Right: Eye [employer] 02/27/2019 SN60WF.125 / [id number] / documented as of this encounter Advance Directives * Full Code (Latest Code Status on File) Date Activated Date Inactivated Comments 11/17/2023 7:38 PM 11/22/2023 3:05 PM periop Question Answer Comments Discussion of Advance Direct meena occurred with: Not Discussed due to patient's condition * Full Code Date Activated Date Inactivated Comments 04/14/2020 12:59 PM 04/14/2020 10:33 [address] This ord er reflects the patients wishes and were consensually agreed upon. * Full Code Date Activated Date Inactivated Comments 09/29/2015 10:36 AM 09/30/2015 6:46 PM * Full Code Date Activated Date Inactivated Comments 05/11/2014 10:41 AM 05/11/2014 5:08 PM This orde r reflects the patients wishes and were consensually agreed upon. * Full Code Date Activated Date Inactivated Comments 04/27/2014 12:48 PM 04/27/2014 7:23 PM This orde r reflects the patients wishes and were consensually agreed upon. Care Teams Special Agent Secret Service Relationship Specialty Start Date End Date Andrae Hays MD [address] [place] [address] PCP - General Internal Medicine 04/10/16 documented as of this encounter
--- OUTSIDE RECORDS SUMMARY | 2024-03-14 15:10 | External Medical Summary | Summary of Care ---
Author Name Unknown Organization [facility] Address [address] [place] [address] Phone [phone] Care Team Providers Care Nuclear Weapons Mechanical Specialist Name Role Phone Andrae Hays MD Primary Care Provider + Reason for Visit * Reason Onset Date Comments Order Request 03/09/2024 Appointment 03/09/2024 Encounter Details Date Type Department Care Team (Late st Contact Info) Description 03/09/2024 Telephone Vascular Surg [facility] [address] [place] [address] Jb Mansfield MD [address] [place] [address] Order Request; Appointment Allergies Active Allergy Reactions Criticality Noted [...] as of this encounter (statuses as of 03/10/2024) Medications Medication Sig Dispensed Refills Start Date [...] less than 7.0% ([facility]) Use as directed. Dx E11.9 [...] PD, group B, by GOLD 2017 classification ([facility]) USE 1 INHALATION BY MOUTH DAILY 180 Each 3 06/02/2023 Active metFORMIN HCl ER 500 MG Oral Tablet Extended Release 24 Hour (Glucophage XR)Indications:Type 2 diabetes mellitus with hemoglobin A1c goal of less than 7.0% ([facility]) Take 1 Tablet by mouth in the morning. 90 Tablet 3 06/05/2023 Active Verapamil HCl ER 120 MG Oral Tablet Extended Release (Isoptin SR)Indications:Paroxys mal SVT (supraventricular tachycardia) ([facility]),AVNRT (AV carleen re-entry tachycardia) (HCC),HTN, goal below 140/90 Take 1 Tablet by [...] Dx J44.9 270 mL 3 08/04/2023 Active Levocetirizine Dihydrochloride 5 MG Oral Tablet Take 1 Tablet by mouth as needed. 08/22/2023 Active Losartan Potassium 100 MG Oral Tablet (Cozaar)Indications:HT N, goal below 140/90 TAKE 1 TABLET BY MOUTH ONCE DAILY 90 Tablet 3 10/27/2023 Active CPAP every night at bedtime. Active Ondansetron 4 MG Oral Tablet Disintegrating (Zofran) Place 1 Tablet on tongue every 8 hours as needed for Other (post op nausea/vomiting) . dissolve on tongue. 12 Tablet 11/21/2023 Active FreeStyle Savanah 3 SensorIndications:Type 2 diabetes mellitus with hemoglobin A1c goal of less than 7.0% (HCC) Use as directed. Use to check sugars, change rito 14 days 3 Each 1 11/28/2023 Active Spironolactone 25 MG Oral Tablet (Aldactone)Indications [...] Oral Tablet (Tambocor)Indications: PSVT (paroxysmal supraventricular tachycardia) (HCC),AVNRT (AV carleen re-entry tachycardia) (HCC) TAKE ONE TABLET BY MOUTH TWICE A DAY IN THE MORNING AND BEFORE BEDTIME 180 Tablet 3 01/08/2024 Active Famotidine 20 MG Oral Tablet (Pepcid)Indications:GE RD (gastroesophageal reflux disease) TAKE 1 TABLET BY MOUTH TWICE DAILY 180 Tablet 3 01/31/2024 Active documented as of this encounter (statuses as of 03/10/2024) Active Problems Problem Noted Date Diagnosed Date Pancreas cyst 11/28/2023 Diverticulitis of sigmoid colon 11/18/2023 Hidradenitis suppurativa 11/19/2022 Chronic obstructive pulmonary disease [...] [facility] Type 2 diabetes mellitus wit h hemoglobin A1c goal of less than 7.0% 06/07/2009 Overview: ICD-10 update of inactive term Vitamin D deficiency 05/25/2009 Primary localized osteoarthrosis, lower leg 03/01 Osteoporosis 07/14/2002 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 Overview: [place] 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 Irritable bowel syndrome Chronic sinusitis MASSIMO on CPAP Overview: CPAP 7 cwp 3 LPM AHP documented as of this encounter (statuses as of 03/10/2024) Resolved Problems Problem Noted Date Diagnosed Date Resolved Date Neuropathy 05/22/2020 07/23/2021 Retinal tear, left 04/01/2018 9 Retina hole, left 04/01/2018 12/04/2018 Class 2 obesity with alveola r hypoventilation and serious comorbidity in adult 09/24/2017 12/ 019 Diabetic cataract 05/13/2017 09/24/2017 Body mass [...] as of this encounter (statuses as of 03/10/2024) Immunizations Name Administration Dates Next Due COVID-19 mRNA, LNP-s, No Pre serve, 2-Dose Series ([place]) 02/23/2021,08/26/2020,08/05/2020 COVID-19, LNP-s, No Preserve , Jasbir-sucrose, Ages 12+ ([place]) 09/26/2021 COVID-19, MRNA-LNP, 23-24, P F, 30 MCG/0.3 mL, 12 YRS AND ABOVE, [facility] 03/22/2023 Covid-19, Mrna, Lnp-s, Pf, B ivalent, [...] Dos e, Trivalent, PF, IM (Fluzone HD) 04/23/2019 Seasonal Influenza, PF, 6 M & above, IM , (FluLaval or Fluzone) 04/01/2018,03/27/2017 Seasonal Influenza, Quadriva lent Hd (Fluzone Hd) 04/04/2023,03/07/2022,03/28/2021 Seasonal Influenza, Quadriva lent, No Preserve, IM 03/11/2016,03/28/2015 Seasonal Influenza, Trivalen t, (IIV3), with Preserv, (Fluzone) 03/29/2016,03/31/2014,04/20/2013,03/09,03/19/2011,05/01/2010,03/23/2009 ,05/04/2008,05/13/2006,05/08/2005,03/31,04/28/2000 TB Rosie Test 10/16/1992 TD - Tetanus/Diptheria (ADULT) 10/16/1992 TDAP (age 10 and older)(Boostrix) 12/08/2021 TDAP, Age 7 and older, IM (Adacel) 02/11/2008 Varicella Zoster Vaccine (Adult) 09/07/2008 Zoster Vaccine Recombinant (Shingrix) 09/07/2008 documented as of this encounter Social History Tobacco Use Types Packs/Day Years Used Date Smoking Tobacco: Former Cigarettes 2015 Smokeless Tobacco: Never Alcohol Use Standard Drinks/Week [...] encounter Miscellaneous Notes * Telephone Encounter - Crow Bowden PA-C - 03/10/2024 9:57 AM EDT Perfect * Telephone Encounter - Cece Palomo LPN - 03/10/2024 8:29 AM EDT Spoke with patient and she is scheduled for her u/s in on 07/12/24 and set up for video on 07/16/24. Cece Palomo LPN 03/10/2024 8:30 AM * Telephone Encounter - Almaz Gilliland PA-C - 03/09/2024 4:15 PM EDT Order signed * Telephone Encounter - Cece Palomo LPN - 03/09/2024 4:11 PM EDT Pt was last seen on 07/03/[address] Mansfield in [facility] and plan is to f/u in 2 years (video visit per pt request) with carotid duplex 1 wk prior at . New order pended Please review and sign if appropriate. I will schedule once orders are signed Cece Palomo LPN 03/09/2024 4:13 PM documented in this encounter Plan of Treatment Upcoming Encounters Date Type Department Care Team (Late st Contact Info) Description 03/12/2024 11:20 AM EDT Office Visit General Internal Medicine [facility] [address] [place] [address] Andrae Hays MD [address] [place] [address] 03/15/2024 11:00 AM EDT Office Visit Cardiology, [facility] [address] [place] [address] Macario Liu MD [address] [place] [address] 04/19/2024 11:45 AM EDT Office Visit Ophthalmology, [facility] [address] [place] [address] Junior Mcnamara DO [address] [place] [address] 05/06/2024 12:00 PM EST Office Visit Pulmonary Medicine, [facility] [address] [facility] [place] [address] Vitaly Angel MD [address] [place] [address] 07/12/2024 10:00 AM EST Imaging Vascular Lab, [facility] 2nd Floor, [place] [address] [facility] [address] [place] [address] 07/16/2024 3:00 PM EST Telemedicine Vascular Surg [facility] [address] [place] [address] Micha Piedra CRNP [address] [place] [address] 11/12/2024 11:00 AM EDT Telemedicine Sleep Disorders Ctr [facility] [address] [facility] [place] [phone] Idania Garner CRNP [address] [facility] [place] [address] Scheduled Orders Name Type Priority Associated Diagnoses Orde r Schedule VASC DUPLEX CAROTID BILAT Medical Imaging Routine Carotid stenosis, non-symptomatic, bilateral Ordered: 03/09/2024 Scheduled Procedures Name Priority Associated Diagnoses Date/Ti [...] 2024 03/22/2023, 03/08/2022, 09/26/2021, Additional history exists Influenza Vaccine (FLU shot) (#1) 2024 04/04/2023, 03/07/2022, 03/07/2022, Additional history exists Diabetic Foot Exam 04/21/2024 [...] D LEVEL ONCE IN A LIFETIME-USE SMARTSET# [id number] Completed 05/17/2023, 05/27/2022, 01/18/2021, Additional history exists RETIRED - COLONOSCOPY-EVERY 5 YRS AGES 18-100 Discontinued 08/27/2023, 07/23/2011, 09/01/2001, Additional history exists HPV (Gardasil) Vaccine Aged Out No lo nger eligible based on patient's age to complete this topic MENINGOCOCCAL (MENACTRA/MENVEO) Aged Out No longer eligible based on patient's age to complete this topic documented as of this encounter Medical Devices Implanted Type Area Healthcare Representative Device Identifier Shelf Expiration Date Model / Serial / Lot Lens 10.5 Sn60wf - [id number] Implanted:Qty: 1 on 04/27/2014 at OR [facility] Left: Eye [employer] 02/27/2019 SN60WF.105 / [id number] / Lens 12.5 Sn60wf - [id number] Implanted:Qty: 1 on 05/11/2014 at OR [facility] Right: Eye [employer] 02/27/2019 SN60WF.125 / [id number] / documented as of this encounter Visit Diagnoses Diagnosis Carotid stenosis, non-symptomatic, bilateral- Primary documented in this encounter Advance Directives * Full Code [...] and were consensually agreed upon. Care Teams Nuclear Weapons Mechanical Specialist Relationship Specialty Start Date End Date Andrae Hays MD [address] [place] [address] PCP - General Internal Medicine 04/10/16 documented as of this encounter
--- OUTSIDE RECORDS SUMMARY | 2024-03-14 15:10 | External Medical Summary | Summary of Care ---
Author Name Unknown Organization [facility] Address [address] [place] [address] Phone [phone] Care Team Providers Care C.O.D. Audit Clerk Name Role Phone Andrae Hays MD Primary Care Provider + Reason for Referral * Evaluate & Treat - Unlimited Visits (Within 30 days (routine)) - Authorized Specialty Diagnoses / Procedures Referred By Yared jane Referred To Contact Dermatology Diagnoses Hidradenitis suppurativa Skin lesion Andrae Hays MD [address] [place] [address] Referral ID Status Reason Start Date Expiration Date Visits Requested Visits Authorized [id number] Authorized Specialty Services Required 03/12/2024 [id number] Question Answer Referral Priority Within 30 days (routine) Where should this appointment be scheduled? [facility] Are you referring the patient for Mohs Surgery and have a current positive skin cancer biopsy result? No What is the reason for the patient referral? Rash/Skin Check/Eval of Lesion or Mole * Evaluate & Treat - Unlimited Visits (Within 30 days (routine)) - Authorized Specialty Diagnoses / Procedures Referred By Yared jane Referred To Contact Physical Therapy / Physical Medicine And Rehab Diagnoses Dizziness Andrae Hays MD [address] [place] [address] Referral ID Status Reason Start Date Expiration Date Visits Requested Visits Authorized [id number] Authorized Specialty Services Required 03/12/2024 [id number] Question Answer Referral Priority Within 30 days (routine) Where should this appointment be scheduled? [facility] * Evaluate & Treat - Unlimited Visits (Within 30 days (routine)) - Authorized Specialty Diagnoses / Procedures Referred By Contac t Referred To Contact ECD - Urogynecology / Gynecology Urology Diagnoses Urinary incontinence, unspecified type Andrae Hays MD [address] [facility] [place] [address] Referral ID Status Reason Start Date Expiration Date Visits Requested Visits Authorized [id number] Authorized Specialty Services Required 03/12/2024 [id number] Question Answer Referral Priority Within 30 days (routine) Where should this appointment be scheduled? [facility] What condition is the patient being referred for? Urinary Incontinence/Overactive Bladder * Evaluate & Treat - Unlimited Visits (Within 30 days (routine)) - Authorized Specialty Diagnoses / Procedures Referred By Contac t Referred To Contact Physical Therapy / Physical Medicine And Rehab Diagnoses Chronic pain of both shoulders Andrae Hays MD [address] [place] [address] Referral ID Status Reason Start Date Expiration Date Visits Requested Visits Authorized [id number] Authorized Specialty Services Required 03/12/2024 [id number] Question Answer Referral Priority Within 30 days (routine) Where should this appointment be scheduled? [facility] Reason for Visit * Reason Onset Date Comments Re-Check Routine check up - patient states she has list of things to discuss Medication Administration 03/12/2024 Flu an d/or Pneumo Inj Encounter Details Date Type Department Care Team (Latest Contact Info) Description 03/12/2024 11:20 AM EDT Office Visit General Internal Medicine [facility] [address] [place] [address] Andrae Hays MD [address] [facility] [place] [address] HTN, goal below 140/90*; Major depressive disorder with single episode, in partial remission ([facility]); COPD, group B, by GOLD 2017 classification ([facility]); MASSIMO on CPAP; Pancreas cyst; Dependence on nocturnal oxygen therapy; Type 2 diabetes mellitus with hemoglobin A1c goal of less than 7.0% ([facility]); Diverticulosis of colon; Colovesical fistula; Need for prophylactic vaccination and inoculation against influenza; Angiomyolipoma of right kidney; Vitamin D deficiency; AVNRT (AV carleen re-entry tachycardia) ([facility]); Encounter for long-term (current) use of medications; S/P carotid endarterectomy; MGUS (monoclonal gammopathy of unknown significance); Bronchiectasis without complication ([facility]); Brain fog; Bilateral leg pain; Chronic pain of both shoulders; Chronic pain of both knees; Urinary incontinence, unspecified type; Paroxysmal SVT (supraventricular tachycardia) ([facility]); Dizziness; Choking, initial encounter; Bilateral impacted cerumen; Dyslipidemia, goal LDL below 70; Hidradenitis suppurativa; Skin lesion Allergies Active Allergy Reactions Criticality Noted Date [...] a, allergic Use as directed 1 Each 12/17/2016 Active Blood Glucose Monitoring Suppl (CONTOUR NEXT ONE) KITIndications:Type 2 diabetes mellitus with hemoglobin A1c goal of less than 7.0% ([facility]) Use as directed. Dx E11.9 1 Kit 04/03/2018 Active acetaminophen (TYLENOL) 500 MG Tablet Take 1 Tablet by mouth in the morning and 1 Tablet before bedtime. 100 Tab 03/15/2019 Active Simethicone 125 MG CAPS Take 1 Tab by mouth as needed. Active Centrum Silver 50+Women Oral Tablet Take 1 Tab by mouth daily. Active oxygen IN GASIndications:Chroni c respiratory failure with hypoxia (HCC) 1 LPM via nasal cannula with ambulation 1 Each 07/23/2022 Active Hydrocortisone (Perianal) 2.5 % External Cream (Anusol-HC)Indication s:Hemorrhoids, unspecified hemorrhoid type Administer into the rectum 2 times a day. 28 g 3 10/12/2022 Active Fluticasone Furoate-Vilanterol 200-25 MCG/ACT Inhalation Aerosol Powder Breath Activated (BREO ellipta)Indications:C OPD, group B, by GOLD 2017 classification ([facility]) USE 1 INHALATION BY MOUTH DAILY 180 Each 3 06/02/2023 Active metFORMIN HCl ER 500 MG Oral Tablet Extended Release 24 Hour (Glucophage XR)Indications:Type 2 diabetes mellitus with hemoglobin A1c goal of less than 7.0% ([facility]) Take 1 Tablet by mouth in the morning. 90 Tablet 3 06/05/2023 Active Verapamil HCl ER 120 MG Oral Tablet Extended Release (Isoptin SR)Indications:Paroxy smal SVT (supraventricular tachycardia) ([facility]),AVNRT (AV carleen re-entry tachycardia) ([facility]),HTN, goal below 140/90 Take 1 Tablet by [...] hours as needed for Other (post op nausea/vomiting ). dissolve on tongue. 12 Tablet 11/21/2023 Active Spironolactone 25 MG Oral Tablet (Aldactone)Indication s:HTN, goal below 140/90 Take 1 Tablet by mouth in the morning. 90 Tablet 3 12/05/2023 Active Furosemide 20 MG Oral Tablet (Lasix)Indications:Ch ronic edema Take 1 Tablet by mouth as needed (edema). as directed 2-3 days per week for edema 60 Tablet 3 12/05/2023 Active Accu-Chek FastClix LancetsIndications:Ty pe 2 diabetes mellitus with hemoglobin A1c [...] supraventricular tachycardia) (HCC),AVNRT (AV carleen re-entry tachycardia) ([facility]) TAKE ONE TABLET BY MOUTH TWICE A DAY IN THE MORNING AND BEFORE BEDTIME 180 Tablet 3 01/08/2024 Active Famotidine 20 MG Oral Tablet (Pepcid)Indications:G ERD (gastroesophageal reflux disease) TAKE 1 TABLET BY MOUTH TWICE DAILY 180 Tablet 3 01/31/2024 Active Debrox 6.5 % Otic Solution (Carbamide Peroxide)Indications: Bilateral impacted cerumen Administer 5 Drops into ears. Fill ear canal and insert cotton plug. Remove plug after 15 to 30 minutes. 03/12/2024 Active Levocetirizine Dihydrochloride 5 MG Oral Tablet Take 1 Tablet by mouth as needed. 08/22/2023 03/12/20 Discontinu ed(Patient preference /discontin uation) Enoxaparin Sodium 40 MG/0.4ML Injection Solution Prefilled Syringe (Lovenox) Inject 40 mg under the skin in the morning and 40 mg before bedtime. Do all this for 11 doses. 4.4 mL 11/21/2023 03/12/20 Discontinu ed(Patient preference /discontin uation) FreeStyle Savanah 3 SensorIndications:Typ e 2 diabetes mellitus with hemoglobin A1c goal of less than 7.0% ([facility]) Use as directed. Use to check sugars, change rito 14 days 3 Each 1 11/28/2023 03/12/20 Discontinu ed(Patient preference /discontin uation) documented as [...] status 03/28/2010 Overview: left Dr Doherty, [facility] Type 2 diabetes mellitus wit h hemoglobin A1c goal of less than 7.0% 06/07/2009 Overview: ICD-10 update of inactive term Vitamin D deficiency 05/25/2009 Primary localized osteoarthrosis, lower leg 03/01 Osteoporosis 07/14/2002 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 Overview: [facility] IgG monoclonol spike monoclonal gammopathy of undetermined [...] mRNA, LNP-s, No Pre serve, 2-Dose Series (Lua) 02/23/2021,08/26/2020,08/05/2020 COVID-19, LNP-s, No Preserve , Jasbir-sucrose, [...] Sign Reading Time Taken Comments Blood Pressure 138/84 03/12/2024 11:00 AM EDT Pulse 88 03/12/2024 11:00 AM EDT Temperature 37.1 C (98.7 F) 03/12/2024 1 1:00 AM EDT Respiratory Rate 20 03/12/2024 11:0 0 AM EDT Oxygen Saturation - - Inhaled Oxygen Concentration - - Weight 101.8 kg (224 lb 6.4 oz) 024 11:00 AM EDT Height - - Body Mass Index 41.04 11/28/2023 11:49 AM EDT documented in this encounter Functional [...] this encounter Patient Instructions * Patient Instructions* Neel Allen RN - 03/12/2024 11:03 AM EDT ~~PATIENT INSTRUCTIONS FOR FLU SHOT~~ Possible side effects of influenza vaccine, (flu shot), are usually mild and include: 1. Soreness or redness at injection site 2. Low grade fever 3. Body aches You may use Tylenol/Acetaminophen as needed for these symptoms. LET YOUR DOCTOR KNOW IMMEDIATELY IF YOU HAVE DIFFICULTY BREATHING OR SWALLOWING, EXPERIENCE ITCHINGOF FEET OR HANDS, HAVE SWELLING OF EYES, FACE OR INSIDE OF NOSE. documented in this encounter Progress Notes * Andrae Hays MD - 03/12/2024 11:52 AM EDT Chief Complaint Patient presents with Re-Check Routine check up - patient states she has list of things to discuss Medication Administration Flu and/or Pneumo Inj SUBJECTIVE: Marycruz Cano is a 78 year old female with PMH as below who presents for follow up DM, HTN, NSVT, MASSIMO, h/o colovesical fistula, no cp, pressure, syncope, er visits. Surgical scar abdomen healed! Moving bowels. In midst of getting new cpap with medicare/supplier issues, working with sleep on this, using oxygen. Edema in legs better with aldactone, sees cardiology Friday. She notes some brain fog since covid last winter, trouble focusing sometimes, also feels maybe from flecainide and going todiscuss with cardiology Friday. No N/V/D. Also c/o chronic bilateral shoulder pain, no trauma, would like PT. Also feels knees worsening with pain chronically, worse walking. Gets burning pain hips, legs when walking at supermarket. Also c/o dizziness when looking up, brief, resolves on own, no weakness, palpitations with it. Also mentions trouble swallowing with food, occasional choking at night. No severe gerd Patient Active Problem List Diagnosis MGUS (monoclonal gammopathy of unknown significance) Osteoporosis Irritable bowel syndrome Chronic sinusitis Primary localized osteoarthrosis, lower leg Vitamin D deficiency Type 2 diabetes mellitus with hemoglobin A1c goal of less than 7.0% ([facility]) Knee joint replacement status Allergic rhinitis due to pollen Diverticulosis of colon GERD (gastroesophageal reflux disease) MASSIMO on CPAP Asthma, moderate persistent S/P carotid endarterectomy Carotid stenosis, non-symptomatic Dyslipidemia, goal LDL below 70 Nocturnal hypoxia Dependence on nocturnal oxygen therapy HTN, goal below 140/90 Diastolic dysfunction History of cataract History of epistaxis Diabetic polyneuropathy ([facility]) DISH (diffuse idiopathic skeletal hyperostosis) RLS (restless legs syndrome) Major depressive disorder with single episode, in partial remission ([facility]) Paroxysmal SVT (supraventricular tachycardia) ([facility]) Statin intolerance Bronchiectasis without complication ([facility]) History of tobacco abuse Dysphagia Pulmonary nodules COPD, group B, by GOLD 2017 classification ([facility]) S/P ablation operation for arrhythmia Angiomyolipoma of right kidney AVNRT (AV carleen re-entry tachycardia) ([facility]) Obesity, morbid (more than 100 lbs over ideal weight or BMI > 40) ([facility]) Lung nodule S/P RF ablation operation for arrhythmia Chronic obstructive pulmonary disease with hypoxia ([facility]) Hidradenitis suppurativa Pancreas cyst Colovesical fistula Current Outpatient Medications Medication Sig Dispense Refill [...] 0 Respiratory Therapy Supplies (NEBULIZER AIR TUBE/PLUGS) [facility] Use as directed 1 Each 0 Blood Glucose Monitoring Suppl (CONTOUR NEXT ONE) KIT Use as directed. Dx E11.9 1 Kit 0 acetaminophen (TYLENOL) 500 MG Tablet Take 1 Tablet by mouth in the morning and 1 Tablet before bedtime. 100 Tab 0 Simethicone 125 MG CAPS Take 1 Tab by mouth as needed. Centrum Silver 50+Women Oral Tablet Take 1 Tab by mouth daily. oxygen IN GAS 1 LPM via nasal cannula with ambulation 1 Each 0 Hydrocortisone (Perianal) 2.5 % External Cream (Anusol-HC) Administer into the rectum 2 times a day. 28 g 3 Fluticasone Furoate-Vilanterol 200-25 MCG/ACT Inhalation Aerosol Powder Breath Activated (BREO ellipta) USE 1 INHALATION BY MOUTH DAILY 180 Each 3 metFORMIN HCl ER 500 MG Oral Tablet Extended Release 24 Hour (Glucophage XR) Take 1 Tablet by mouthin the morning. 90 Tablet 3 Verapamil HCl ER 120 MG Oral Tablet Extended Release (Isoptin SR) Take 1 Tablet by mouth in the morning. 90 Tablet 3 Albuterol Sulfate HFA 108 (90 Base) MCG/ACT Inhalation Aerosol Solution Inhale 2 Puffs by mouth every 4 hours as needed for Cough, Shortness of Breath or Wheezing. 36 g 1 Levalbuterol HCl 0.63 MG/3ML Inhalation Nebulization Solution (Xopenex) Inhale 3 mL via nebulizer every 6 hours as needed for Wheezing or Shortness of Breath. Dx J44.9 270 mL 3 Losartan Potassium 100 MG Oral Tablet (Cozaar) TAKE 1 TABLET BY MOUTH ONCE DAILY 90 Tablet 3 CPAP every night at bedtime. Ondansetron 4 MG Oral Tablet Disintegrating (Zofran) Place 1 Tablet on tongue every 8 hours as needed for Other (post op nausea/vomiting). dissolve on tongue. 12 Tablet 0 Spironolactone 25 MG Oral Tablet (Aldactone) Take 1 Tablet by mouth in the morning. 90 Tablet 3 Furosemide 20 MG Oral Tablet (Lasix) Take 1 Tablet by mouth as needed (edema). as directed 2-3 daysper week for edema 60 Tablet 3 Accu-Chek FastClix Lancets Test twice daily as directed. Pt has this style lancing device at home already. DX E11.9 100 Each 5 Contour Next Test In Vitro Strip (Glucose Blood) Test twice daily as directed. Dx E11.9. 100 Strip 5 Flecainide Acetate 50 MG Oral Tablet (Tambocor) TAKE ONE TABLET BY MOUTH TWICE A DAY IN THE MORNINGAND BEFORE BEDTIME 180 Tablet 3 Famotidine 20 MG Oral Tablet (Pepcid) TAKE 1 TABLET BY MOUTH TWICE DAILY 180 Tablet 3 Debrox 6.5 % Otic Solution (Carbamide Peroxide) Administer 5 Drops into ears. Fill ear canal and insert cotton plug. Remove plug after 15 to 30 minutes. Levocetirizine Dihydrochloride 5 MG Oral Tablet Take 1 Tablet by mouth as needed. (Patient not taking: Reported on 03/12/2024) FreeStyle Savanah 3 Sensor Use as directed. Use to check sugars, change rito 14 days (Patient not taking: Reported on 03/12/2024) 3 Each 1 No current facility-administered medications for this [...] get itchy when she uses it Sorbitol Abdominal pain Sugar alcohol Health Maintenance Due Topic Date Due Zoster Vaccines (2 of 2) 11/02/2008 Adult Wellness Visit Never done *BISPHONATE OR OTHER ACCEPTABLE MEDICATION NEEDED FOR OSTEOPOROSIS (REFER TO SMARTSET #1146) Never done B-12 12/06/2023 COVID-19 Vaccine ( season) 2024 ROS: CONSTITUTIONAL: No fevers, sweats, or chills PULMONARY: No rales and No recent change in breathing CARDIOVASCULAR: No chest pain, No orthopnea, No paroxysmal nocturnal dyspnea, No palpitations, and No syncope GASTROINTESTINAL: No abdominal pain, No change in bowel habits, No significant heartburn, No significant change in appetite, No nausea, vomiting, diarrhea, or constipation, No hematemesis, No blood in stools or black tarry stools, No abdominal bloating or early satiety, and No dysphagia ALL OTHER SYSTEMS NEGATIVE I reviewed social, PMH, PSH, and family history and updated where needed. 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 (Adult - for ages 18 years and over): No Does your family have trouble paying for medicine? (Household - for ages 0-17 years): Not on file Food Insecurity: No Food Insecurity (12/23/2023) Food Insecurity Do you need food for this week? (Adult - for ages 18 years and over): No Are you able to get enough food for your family? (Household - for ages 0-17 years): Not on file Does your family need food this week? (Household - for ages 0-17 years): Not on file Do you always have enough food for your family? (Household - for ages 0-17 years): Not on file Transportation Needs: No Transportation Needs (12/23/2023) Transportation Needs Do you have trouble getting a ride to medical visits or work? (Adult - for ages 18 years and over):Never True Does your family have a hard time getting a ride to doctors visits? (Household - for ages 0-17 years): Not on file Has lack of transportation kept you from medical appointments, meetings, work, or from getting things needed for daily living? Check all that apply. (Adult - for ages 18 years and over): No Do you (or your family) have trouble finding or paying for a ride (transportation)? (Household - for ages 0-17 years): Not on file Social Connections: Socially Integrated (12/23/2023) Social Connections How often do you feel lonely or isolated from those around you? (Adult - for ages 18 years and over): Never Housing Stability: Low Risk (12/23/2023) Housing Stability Do you currently live in a intermediate or have no steady place to sleep at night? (Adult - for ages 18 years and over): No Do you think you are at risk of becoming homeless? (Adult - for ages 18 years and over): No Does your family worry about paying for your home or becoming homeless? (Household - for ages 0-17 years): Not on file Are you homeless or worried that you might be in the future? (Adult - for ages 18 years and over): No Are you (or your family) homeless or worried that you might be in the future? 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 ([facility]) 09/24/2017 COPD (chronic obstructive pulmonary disease) ([facility]) Dependence on nocturnal oxygen therapy 12/25/2015 Depressive disorder, not elsewhere classified Diabetic polyneuropathy ([facility]) 09/24/2017 Diastolic dysfunction 04/29/2017 Diverticulitis of sigmoid colon 11/18/2023 Diverticulosis of colon 09/2009 diverticulitis 09/2009 Dyslipidemia, [...] joint replacement status 03/28/[address] Doherty, [facility] Lung nodule 02/11/2020 Menopause 1944 started ERT at that time Need for prophylactic hormone replacement therapy (postmenopausal) age 43 Neuropathy 05/22/2020 No advance directive on file 01/23/2005 Yes, Patient instructed to provide copy of advance directive for provider to review and to be scanned into Electronic Medical Record Nocturnal hypoxia 12/25/2015 MASSIMO on CPAP 02/13/2005 on CPAP Osteoporosis osteopenia Other paraproteinemias 08/1999 [facility] 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 Paroxysmal SVT (supraventricular tachycardia) ([facility]) 05/26/2018 Retina hole, left 04/01/2018 Retinal tear left eye Senile nuclear cataract 02/17/2014 Tim Sleep apnea, obstructive Special screening for osteoporosis 06/2002 3-4 % decline compared to 1999, repeat in 2005 Past Surgical History: Procedure Laterality Date ABLATE HEART DYSRHYTHM FOCUS 12/2018 ARTHROPLASTY KNEE TOTAL 03/28/2010 Bessy, vazquez at [facility] CAROTID (INTERNAL) ARTERY CATHETHER PLACEMENT Left 09/29/2015 CATHETER PLACEMENT INTERNAL CAROTID ARTERY performed by Nehemias Wells MD at [place] [facility] DELIVERY 1969, 1972 x 2 COLONOSCOPY W/ LESION REMOVAL, SNARE 07/23/2011 Hyperplastic polyp,severe diverticulosiss,repeat colonoscopy 5 years COLONOSCOPY, DIAGNOSTIC (RECTUM) N/A 08/27/2023 diverticulosis/hemorrhoids/Colonoscopy/[place] COLORECTAL CANCER SCREEN; COLON 01/07/2002 normal repeat in 10 years, Dr Seals, [facility] CYSTOSCOPY/INSERTION OF STENT Bilateral 11/17/2023 CYSTOURETHROSCOPY WITH INSERTION URETERAL STENT DUAL SERVICE performed by Sumanth Sood MD at [facility] D[facility] SURGERY PROCEDURE NEC 1961 wisdom teeth DEXA SCAN/BONE MINERAL AXIAL 2002 repeat in 2002, osteopenia noted, repeat DEXA SCAN/BONE MINERAL AXIAL 07/25/2009 normal, low risk repeat 2011 EGD, FLEXIBLE, DIAGNOSTIC 03/20/2017 normal/[facility] EGD, FLEXIBLE, DIAGNOSTIC N/A 08/30/2022 [facility], EGD, z-line found 36 cm normal / entire esophagus with a Savary dilator at 18mm / biopsies show mild chronic gastritis / EGD, W/ENDOSCOPIC US N/A 08/27/2023 cysts pancreatic body/biopsies show serous cyst/EUS/[place] ELECTROPHYSIOLOGY EVAL & ABLATE SVT N/A 04/14/2020 SVT EPS AND CATHETER ABLATION performed by Linda Camp IV, MD at CARDI[facility] LABS [facility] FLUORO BARIUM ENEMA 04/24/1998 extensive spastic diverticulosis INSERTION OF LENS PROSTHESIS OS IOF-DEXA SCAN/BONE MINERAL AX 08/08/1999 T score negative 1 (osteopenia only) KNEE ARTHROSCOPY, DIAGNOSTIC 2006 Knee Arthroscopy left LAPAROSCOPIC PARTIAL COLECTOMY W/COLOPROCTOSTOMY N/A 11/17/2023 LAPAROSCOPIC PARTIAL COLECTOMY WITH COLOPROCTOSTOMY performed by Kamilla Graham MD at OR [facility] LASER TRABECULOPLASTY 03/03/2014 Laser Retinopexy OS, Dr. Mcnamara MAMMOGRAM - BILATERAL 10/26/99, 04/03/01 normal MAMMOGRAM - BILATERAL 05/07/2007 birad code 2 MAMMOGRAM SCREENING-BILATERAL 01/17/2004 benign findings, yearly mammogram appropriate, birad code 2 MAMMOGRAM SCREENING-BILATERAL 04/04/2005 negative finding, birad 1, yearly mammograms appropriate MAMMOGRAM SCREENING-BILATERAL 05/09/2008 birad2, benign, yearly reccm. NASAL ENDOSCOPY, DX W/SINUSOSCOPY 05/09/2011 Dr. Vega- [facility] NASAL ENDOSCOPY,TOTAL ETHMOIDECTOMY 05/09/2011 Dr. Villarreal [facility] OTHER (INFORMATION) ACT 112 SIGNED 09/28/21 DR. [...] REMOVE GALLBLADDER 06/30/1996 laporscopic cholecystectomy, Dr Gunderson, [place], [place] REMOVE TONSILS & ADENOIDS, UNDER 12 1953 SINUS SURGERY PROCEDURE NEC 01/1999 with deviated septum repair, Dr Vidal, SMALL BOWEL ENDOSCOPY W/BX 07/03/2010 small sliding hiatal hernia, normal tissue bx TENDON SHEATH INCISION, FINGER 2007 right [place] THROMBOENDARECTOMY W/PATCH,NECK INCISION Left 09/29/2015 CAROTID ENDARTERECTOMY performed by Nehemias Wells MD at OR [facility] TOTAL ABD HYSTERECTOMY W/WO REMOVAL OF TUBE(S) Bilateral age 43 TOTAL HYSTERECTOMY 1987 with BSO Family History Problem Relation Name Age of Onset Eye Problems Mother cataracts/glaucoma/AMD Cancer Mother pancreatic at age 72 Cancer Father prostate at age 66 Eye Problems Father cataracts/glaucoma Diabetes Brother ronnie at age 60's Hypertension Sister juile Stroke Grandfather (Paternal) Thyroid Disorder None Heart Disorder None Other (AAA) Other Denies FH of AAA OBJECTIVE: PHYSICAL EXAM: BP 138/84 (BP Site: Left Arm, BP Position: Sitting, BP Cuff Size: Large) | Pulse 88 | Temp 37.1 C(98.7 F) (Tympanic) | Resp 20 | Wt 101.8 kg (224 lb 6.4 oz) | BMI 41.04 kg/m | BSA 2.11 m General: alert, healthy, and no distress Head: Normocephalic Eye Exam: conjunctiva are pink and non-injected, sclera clear Ears: External ears normal, +cerumen bilaterally Heart: regular rate & rhythm, no murmur, no gallops, PMI non-displaced, S-1 normal, and S-2 normal Lungs: normal respiratory rate and rhythm, lungs clear to auscultation Abdomen: abdomen soft, non-tender, and well healed mid line incision Extremities: no edema, no clubbing, no cyanosis, irregular brown macule left leg (monitored by dermwhen I ask) Neuro Exam: alert & oriented x 3 with fluent speech, gait normal Psych: normal affect, no flight of ideas or tangential thought, good eye contact, no pressured speech 01/06/24 surgery: IMPRESSION: 78yo F now 6 weeks s/p LAR for diveticulitis/CV fistula, overall doing very well. PLAN: RTC prn 12/05/23 cardiology: 1.Underlying vascular disease but no coronary disease by cardiac catheterization 2. Longstanding hypertension with diastolic dysfunction 3. 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 Paroxysmal supraventricular tachycardia controlled with prior ablation and antiarrhythmic therapy with flecainide and verapamil Currently at baseline compensation from volume status but struggling with urinary incontinence withdiuretics, recent surgery PLAN: Increase spironolactone to 25 mg per day Furosemide 2 to 3 days per week p.r.n. edema with patient to follow weights Fluid restriction to 2 quarts per day ASSESSMENT: (I10) HTN, goal below 140/90 (primary encounter diagnosis) (F32.4) Major depressive disorder with single episode, in partial remission ([facility]) (J44.9) COPD, group B, by GOLD 2017 classification ([facility]) (G47.33) MASSIMO on CPAP (K86.2) Pancreas cyst (Z99.81) Dependence on nocturnal oxygen therapy (E11.9) Type 2 diabetes mellitus with hemoglobin A1c goal of less than 7.0% ([facility]) (K57.30) Diverticulosis of colon (N32.1) Colovesical fistula (Z23) Need for prophylactic vaccination and inoculation against influenza (D17.71) Angiomyolipoma of right kidney (E55.9) Vitamin D deficiency (I47.19) AVNRT (AV carleen re-entry tachycardia) ([facility]) (Z79.899) Encounter for long-term (current) use of medications (Z98.890) S/P carotid endarterectomy (D47.2) MGUS (monoclonal gammopathy of unknown significance) (J47.9) Bronchiectasis without complication ([facility]) (R41.89) Brain fog (M79.604, M79.605) Bilateral leg pain (M25.511, G89.29, M25.512) Chronic pain of both shoulders (M25.561, M25.562, G89.29) Chronic pain of both knees (R32) Urinary incontinence, unspecified type (I47.10) Paroxysmal SVT (supraventricular tachycardia) ([facility]) (R42) Dizziness (T17.308A) Choking, initial encounter (H61.23) Bilateral impacted cerumen (E78.5) Dyslipidemia, goal LDL below 70 (L73.2) Hidradenitis suppurativa (L98.9) Skin lesion PLAN: HTN, goal below 140/90 (Primary) Cont lasix, aldactone, losartan, verapamil Labs soon Major depressive disorder with single episode, in partial remission ([facility]) - TSH; Future; Expected date: 03/12/2024 Seems stable COPD, group B, by GOLD 2017 classification ([facility]) Cont oxygen, albuterol, Sees pulm MASSIMO on CPAP Working with sleep Pancreas cyst T/c image next year Dependence on nocturnal oxygen therapy Cont oxygen Type 2 diabetes mellitus with hemoglobin A1c goal of less than 7.0% ([facility]) - HEMOGLOBIN A1C; Future; Expected date: 03/12/2024 Cont metformin Diverticulosis of colon Seems stable Monitor for infection Colovesical fistula Doing well Appreciate resident care aide Need for prophylactic vaccination and inoculation against influenza - INFLUENZA VAC., TRIVALENT, HD, PF, 65 AND ABOVE, 0.5 ML IM (FLUZONE HD) Angiomyolipoma of right kidney Follow imaging Vitamin D deficiency - 25-HYDROXY VITAMIN D; Future; Expected date: 03/12/2024 Recheck AVNRT (AV carleen re-entry tachycardia) ([facility]) Cont med per cardiology, await visit Encounter for long-term (current) use of medications - VITAMIN B12; Future; Expected date: 03/12/2024 S/P carotid endarterectomy Sees vascular MGUS (monoclonal gammopathy of unknown significance) - MONOCLONAL GAMMOPATHIES SCREENING PANEL; Future; Expected date: 03/12/2024 - URINE IMMUNOFIXATION, BENCE KHAN PROTEIN, RANDOM URINE; Future; Expected date: 03/12/2024 Bronchiectasis without complication (HCC) Sees pulm Brain fog - LYME DISEASE ANTIBODY SCREEN WITH REFLEX TO CONFIRMATION; Future; Expected date: 03/12/2024 - TSH; Future; Expected date: 03/12/2024 Mentions brain fog since covid, unclear if long covid or from co-morbidities, check labs Bilateral leg pain - VASC ANKLE BRACHIAL INDICES WITHOUT PPG (PAD) Perhaps oa, but given h/o vascular disease (carotids), check u.s Chronic pain of both shoulders - PHYSICAL THERAPY REFERRAL OP Chronic pain of both knees - XR KNEE 4 OR MORE VIEWS Urinary incontinence, unspecified type - UROGYNECOLOGY CLINIC REFERRAL OP (FEMALE ONLY) Mentions urine incontinence, not better since surgery, will ask urogyn aid Paroxysmal SVT (supraventricular tachycardia) (HCC) - THYROID ANTIBODY AND TPO ANTIBODY; Future; Expected date: 03/12/2024 Dizziness - PHYSICAL THERAPY REFERRAL OP Wonder if bppv, trial pt Choking, initial encounter - FLUORO SWALLOWING FUNCTION W VIDEO CINE Bilateral impacted cerumen She wants to try home treatment, will try debrox Dyslipidemia, goal LDL below 70 Await cardiology Hidradenitis suppurativa - DERMATOLOGY REFERRAL OP Skin lesion - DERMATOLOGY REFERRAL OP Due for recheck I spent a total of 40-54 minutes (exact time 46 mins) on the date of service in preparation, delivery, and documentation of the care provided to Marycruz Cano excluding any time spent in the performance of separately billed services or time spent by another provider/QHP. Follow Up: Return in about 4 months (around 07/12/2024), or if symptoms worsen or fail to improve. * Neel Allen RN - 03/12/2024 11:03 AM EDT PRE - ADMINISTRATION DOCUMENTATION Are you experiencing any cold symptoms or fever? No Have you had Guillain-Pindall Syndrome (an illness that causes paralysis) within the last 6 weeks? No Have you had the flu shot in the past? YES Have you ever had a reaction to the flu shot? No Neel Allen RN, 03/12/2024 11:03 AM Immunization Administration Documentation Time Out Procedure Performed: Yes Patient Identified (Ask Name/Date of ): Yes Does the patient have a fever greater than 101 degrees today? No Patient allergic to latex? No VFC Stock: No Immunization(s) verified: Yes, Immunization Name: Flu, VIS Sheet(s) given: Yes Verified Side and Site: Yes Verified Shot(s) with Parent(s)/Patient: Yes documented in this encounter Nursing Notes * Neel Allen RN - 03/12/2024 11:05 AM EDT Chief Complaint Patient presents with Re-Check Routine check up - patient states she has list of things to discuss Medication Administration Flu and/or Pneumo Inj documented in this encounter Plan of Treatment Upcoming Encounters Date Type Department Care Team (Late st Contact Info) Description 03/15/2024 11:00 AM EDT Office Visit Cardiology, [facility] [address] [place] [address] Macario Liu MD [address] [place] [address] 03/24/2024 2:00 PM EDT Imaging Vascular Lab, [facility] 2nd Floor, [place] [address] [place] [address] 04/19/2024 11:45 AM EDT Office Visit Ophthalmology, [facility] [address] [place] [address] Junior Mcnamara DO [address] [place] [address] 04/29/2024 3:35 PM EDT Office Visit Urogynecology [facility] [address] [place] [address] Neel James MD [address] [place] [address] Nurse Dick Whitfield [facility] [address] [facility] [place] [address] 05/06/2024 12:00 PM EST Office Visit Pulmonary Medicine, [facility] [address] [facility] [place] [address] Vitaly Angel MD [address] [place] [address] 07/12/2024 10:00 AM EST [facility] [address] [facility] [place] [address] 07/12/2024 11:20 AM EST Office Visit General Internal Medicine [facility] [address] [place] [address] Mindi Nesbitt PA-C [address] [place] [address] 07/16/2024 3:00 PM EST Telemedicine Vascular Surg [facility] [address] [place] [address] Micha Piedra CRNP [address] [place] [address] 11/12/2024 11:00 AM EDT Telemedicine Sleep Disorders Ctr [facility] [address] [facility] [place] [phone] Idania Garner CRNP [address] [facility] [place] [address] Scheduled Orders Name Type Priority Associated Diagnoses Orde r Schedule VITAMIN B12 Lab Routine Encounter for long-term (current) use of medications Expected: 03/12/2024 (Approximate), Expires: 03/12/2025 MONOCLONAL GAMMOPATHIES SCREENING PANEL Lab Routine MGUS (monoclonal gammopathy of unknown significance) Expected: 03/12/2024, Expires: 03/12/2025 URINE IMMUNOFIXATION, BENCE KHAN PROTEIN, RANDOM URINE Lab Routine MGUS (monoclonal gammopathy of unknown significance) Expected: 03/12/2024 (Approximate), Expires: 03/12/2025 LYME DISEASE ANTIBODY SCREEN WITH REFLEX TO CONFIRMATION Lab Routine Brain fog Expected: 03/12/2024 (Approximate), Expires: 03/12/2025 TSH Lab Routine Major depressive disorder with single episode, in partial remission (HCC) Brain fog Expected: 03/12/2024 (Approximate), Expires: 03/12/2025 25-HYDROXY VITAMIN D Lab Routine Vitamin D deficiency Expected: 03/12/2024 (Approximate), Expires: 03/12/2025 VASC ANKLE BRACHIAL INDICES WITHOUT PPG (PAD) Medical Imaging Routine Bilateral leg pain Ordered: 03/12/2024 HEMOGLOBIN A1C Lab Routine Type 2 diabetes mellitus with hemoglobin A1c goal of less than 7.0% (HCC) Expected: 03/12/2024 (Approximate), Expires: 03/12/2025 XR KNEE 4 OR MORE VIEWS Medical Imaging Routine Chronic pain of both knees Ordered: 03/12/2024 THYROID ANTIBODY AND TPO ANTIBODY Lab Routine Paroxysmal SVT (supraventricular tachycardia) (HCC) Expected: 03/12/2024 (Approximate), Expires: 03/12/2025 FLUORO SWALLOWING FUNCTION W VIDEO CINE Medical Imaging Routine Choking, initial encounter Ordered: 03/12/2024 Scheduled Procedures Name Priority Associated Diagnoses Date/Ti me COLONOSCOPY FLEXIBLE PROXIMA L DIAGNOSTIC Recall Hx of diverticulitis of colon Scheduled Referrals Name Type Priority Associated Diagnoses Orde r Schedule PHYSICAL THERAPY REFERRAL OP Referral Within 30 days (routine) Chronic pain of both shoulders Ordered: 03/12/2024 UROGYNECOLOGY CLINIC REFERRAL OP (FEMALE ONLY) Referral Within 30 days (routine) Urinary incontinence, unspecified type Ordered: 03/12/2024 PHYSICAL THERAPY REFERRAL OP Referral Within 30 days (routine) Dizziness Ordered: 03/12/2024 DERMATOLOGY REFERRAL OP Referral Within 30 days (routine) Hidradenitis suppurativa Skin lesion Ordered: 03/12/2024 Health Maintenance Due Date Last Done Comments [...] D LEVEL ONCE IN A LIFETIME-USE SMARTSET# 55536 Completed 05/17/2023, 05/27/2022, 01/18/2021, Additional history exists [...] this encounter Medical Devices Implanted Type Area Self Propelled Mining Machine Operator Device Identifier Shelf Expiration Date Model / Serial / Lot Lens 10.5 Sn60wf - [id number] Implanted:Qty: 1 on 04/27/2014 at OR [facility] Left: Eye [employer] 02/27/2019 SN60WF.105 / [id number] / Lens 12.5 Sn60wf - [id number] Implanted:Qty: 1 on 05/11/2014 at OR [facility] Right: Eye [employer] 02/27/2019 SN60WF.125 / [id number] / documented as of this encounter Visit Diagnoses Diagnosis HTN, goal below 140/90- Primary Unspecified essential hypertension Major depressive disorder with single episode, in partial remission ([facility]) COPD, group B, by GOLD 2017 classification ([facility]) MASSIMO on CPAP Obstructive sleep apnea (adult) (pediatric) Pancreas cyst Cyst and pseudocyst of pancreas Dependence on nocturnal oxygen therapy Type 2 diabetes mellitus with hemoglobin A1c goal of less than 7.0% ([facility]) Diverticulosis of colon Diverticulosis of colon (without mention of hemorrhage) Colovesical fistula Intestinovesical fistula Need for prophylactic vaccination and inoculation against influenza Angiomyolipoma of right kidney Vitamin D deficiency Unspecified vitamin D deficiency AVNRT (AV carleen re-entry tachycardia) ([facility]) Other specified cardiac dysrhythmias Encounter for long-term (current) use of medications Encounter for long-term (current) use of other medications S/P carotid endarterectomy Other postprocedural status MGUS (monoclonal gammopathy of unknown significance) Monoclonal paraproteinemia Bronchiectasis without complication (HCC) Bronchiectasis without acute exacerbation Brain fog Bilateral leg pain Pain in limb Chronic pain of both shoulders Pain in joint, shoulder region Chronic pain of both knees Urinary incontinence, unspecified type Paroxysmal SVT (supraventricular tachycardia) ([facility]) Paroxysmal supraventricular tachycardia Dizziness Dizziness and giddiness Choking, initial encounter Bilateral impacted cerumen Impacted cerumen Dyslipidemia, goal LDL below 70 Other and unspecified hyperlipidemia Hidradenitis suppurativa Hidradenitis Skin lesion Unspecified disorder of skin and subcutaneous tissue documented in this encounter Advance Directives * [...] and were consensually agreed upon. Care Teams C.O.D. Audit Clerk Relationship Specialty Start Date End Date Andrae Hays MD [address] [place] [address] PCP - General Internal Medicine 04/10/16 documented as of this encounter
--- OUTSIDE RECORDS SUMMARY | 2024-03-14 15:10 | External Medical Summary | Summary of Care ---
Author Name Unknown Organization [facility] Address [address] [place] [address] Phone [phone] Care Team Providers Care Mass Spectroscopist Name Role Phone Andrae Hays MD Primary Care Provider + Reason for Visit * Reason Comments Review Sleep Study PSG Encounter Details Date Type Department Care Team (Late st Contact Info) Description 02/25/2024 7:00 PM EDT PulmDiagnostic Sleep Lab, [facility] [address] [place] [id number] [place] [address] [place] [address] Obstructive sleep apnea*; Nocturnal hypoxemia Allergies Active Allergy Reactions Criticality Noted Date [...] replacement status 03/28/2010 Overview: left Dr Doherty, [facility] Type 2 diabetes mellitus wit h hemoglobin A1c goal of less than 7.0% 06/07/2009 Overview: ICD-10 update of inactive term Vitamin D deficiency 05/25/2009 Primary localized osteoarthrosis, lower leg 03/01 Osteoporosis 07/14/2002 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 Overview: [place] IgG monoclonol spike monoclonal gammopathy of undetermined [...] mRNA, LNP-s, No Pre serve, 2-Dose Series ([employer]) 02/23/2021,08/26/2020,08/05/2020 COVID-19, LNP-s, No Preserve , Jasbir-sucrose, Ages 12+ ([employer]) 09/26/2021 COVID-19, MRNA-LNP, 23-24, P F, 30 MCG/0.3 mL, 12 YRS AND ABOVE, IM ([facility] 03/22/2023 Covid-19, Mrna, Lnp-s, Pf, B [...] Years Used Date Smoking Tobacco: Former Cigarettes 30 1 986 2015 Smokeless Tobacco: Never Alcohol Use Standard Drinks/Week Comments No 0 (1 standard drink = 0.6 oz pur e alcohol) PHQ-2 Answer Date Recorded PHQ Adult Total Score 0 06/03/2023 Hunger Vital Sign Answer Date Recorded Within the past 12 months, y ou worried that your food would run out before you got the money to buy more. Never true 12/23/19 24 Within the past 12 months, t he [...] as of this encounter Progress Notes * Lali Terry DO - 03/12/2024 9:36 AM EDT PSG report to be scanned into [employer]. documented in this encounter Plan of Treatment Upcoming Encounters Date Type Department Care Team (Late st Contact Info) Description 03/12/2024 11:20 AM EDT Office Visit General Internal Medicine [facility] [address] [facility] [address] [place] [address] Andrae Hays MD [address] [place] [address] 03/15/2024 11:00 AM EDT Office Visit Cardiology, [facility] [address] [place] [address] Macario Liu MD [address] [place] [address] 04/19/2024 11:45 AM EDT Office Visit Ophthalmology, [facility] [address] [facility] [place] [address] Junior Mcnamara DO 132 [facility] [place] [address] 05/06/2024 12:00 PM EST Office Visit Pulmonary Medicine, [facility] [address] [facility] [place] [address] Vitaly Angel MD [address] [place] [address] 07/12/2024 10:00 AM EST Imaging Vascular Lab, [facility] 2nd Floor, [place] [address] [facility] [place] [address] 07/16/2024 3:00 PM EST Telemedicine Vascular Surg [address] [address] Micha Piedra CRNP [address] [place] [address] 11/12/2024 11:00 AM EDT Telemedicine Sleep Disorders Ctr [address] [place] [phone] Idania Garner CRNP [address] [facility] [place] [address] Scheduled Procedures Name Priority Associated Diagnoses Date/Ti [...] D LEVEL ONCE IN A LIFETIME-USE SMARTSET# [id number] Completed 05/17/2023, 05/27/2022, 01/18/2021, Additional history exists RETIRED - COLONOSCOPY-EVERY 5 YRS AGES 18-100 Discontinued 08/27/2023, 07/23/2011, 09/01/2001, Additional history exists HPV (Gardasil) Vaccine Aged Out No lo nger eligible based on patient's age to complete this topic MENINGOCOCCAL (MENACTRA/MENVEO) Aged Out No longer eligible based on patient's age to complete this topic documented as of this encounter Medical Devices Implanted Type Area Optical Engineer Device Identifier Shelf Expiration Date Model / Serial / Lot Lens 10.5 Sn60wf - [id number] Implanted:Qty: 1 on 04/27/2014 at OR [facility] Left: Eye [employer] 02/27/2019 SN60WF.105 / [id number] / Lens 12.5 Sn60wf - [id number] Implanted:Qty: 1 on 05/11/2014 at OR [facility] Right: Eye [employer] 02/27/2019 SN60WF.125 / [id number] / documented as of this encounter Visit Diagnoses Diagnosis Obstructive sleep apnea- Primary Obstructive sleep apnea (adult) (pediatric) Nocturnal hypoxemia Hypoxemia documented in this encounter Advance Directives * [...] and were consensually agreed upon. Care Teams Mass Spectroscopist Relationship Specialty Start Date End Date Andrae Hays MD [address] [facility] [place] [address] PCP - General Internal Medicine 04/10/16 documented as of this encounter
--- OUTSIDE RECORDS SUMMARY | 2024-03-14 15:11 | External Medical Summary | Summary of Care ---
Author Name Unknown Organization [facility] Address [address] [place] [address] Phone [phone] Care Team Providers Care Project Admin Name Role Phone Andrae Hays MD Primary Care Provider + Reason for Visit * Reason Onset Date Comments Order Request 03/09/2024 Appointment 03/09/2024 Encounter Details Date Type Department Care Team (Late st Contact Info) Description 03/09/2024 Telephone Vascular Surg [facility] [address] [place] [address] Jb Mansfield MD [address] [place] [address] Order Request; Appointment Allergies Active [...] as of this encounter (statuses as of 03/09/2024) Medications Medication Sig Dispensed Refills Start Date [...] than 7.0% ([facility]) Use as directed. Dx E11.9 1 [...] PD, group B, by GOLD 2017 classification ([facility]) USE 1 INHALATION BY MOUTH DAILY 180 Each 3 06/02/2023 Active metFORMIN HCl ER 500 MG Oral Tablet Extended Release 24 Hour (Glucophage XR)Indications:Type 2 diabetes mellitus with hemoglobin A1c goal of less than 7.0% ([facility]) Take 1 Tablet by mouth in the morning. 90 Tablet 3 06/05/2023 Active Verapamil HCl ER 120 MG Oral Tablet Extended Release (Isoptin SR)Indications:Paroxys mal SVT (supraventricular tachycardia) ([facility]),AVNRT (AV carleen re-entry tachycardia) (HCC),HTN, goal [...] as of this encounter (statuses as of 03/09/2024) Active Problems Problem Noted Date Diagnosed Date [...] left Dr Doherty, [facility] Type 2 diabetes mellitus wit h hemoglobin A1c goal of less than 7.0% 06/07/2009 Overview: ICD-10 update of inactive term Vitamin D deficiency 05/25/2009 Primary localized osteoarthrosis, lower leg 03/01 Osteoporosis 07/14/2002 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 Overview: [place] 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 Irritable bowel syndrome Chronic sinusitis MASSIMO on CPAP Overview: CPAP 7 cwp 3 LPM AHP documented as of this encounter (statuses as of 03/09/2024) Resolved Problems Problem Noted Date Diagnosed Date [...] as of this encounter (statuses as of 03/09/2024) Immunizations Name Administration Dates Next Due COVID-19 mRNA, LNP-s, No Pre serve, 2-Dose Series ([employer]) 02/23/2021,08/26/2020,08/05/2020 COVID-19, LNP-s, No Preserve , Jasbir-sucrose, Ages 12+ ([employer]) 09/26/2021 COVID-19, MRNA-LNP, 23-24, P F, 30 MCG/0.3 mL, 12 YRS AND ABOVE, IM ([facility]) 03/22/2023 Covid-19, Mrna, Lnp-s, Pf, [...] Smoking Tobacco: Former Cigarettes 30 1 986 - 2016 Smokeless Tobacco: [...] encounter Miscellaneous Notes * Telephone Encounter - Almaz Gilliland PA-C - 03/09/2024 4:15 PM EDT Order signed * Telephone Encounter - Cece Palomo LPN - 03/09/2024 4:11 PM EDT Pt was last seen on 07/03/[address] Mansfield in [facility] and plan is to f/u in [...] Office Visit General Internal Medicine [facility] [place] [address] [place] [address] Andrae Hays MD 200 [facility] [place] [address] 03/15/2024 11:00 AM EDT Office Visit Cardiology, [facility] [address] [place] [address] Macario Liu MD 132 [place] [address] 04/19/2024 11:45 AM EDT Office Visit Ophthalmology, [facility] [address] [place] [address] Junior Mcnamara DO [address] [place] [address] 05/06/2024 12:00 PM EST Office Visit Pulmonary Medicine, [facility] [address] [place] [address] Vitaly Angel MD [address] [place] [address] 11/12/2024 11:00 AM EDT Telemedicine Sleep Disorders Ctr [facility] [address] [place] [phone] Idania Garner CRNP [address] [place] [address] Scheduled Orders Name Type Priority Associated Diagnoses [...] 12/29, 10/18/2021, Additional history exists COVID-19 Vaccine (2022- season) 2024 03/22/2023, 03/08/2022, 09/26/2021, Additional history [...] D LEVEL ONCE IN A LIFETIME-USE SMARTSET# [id number] Completed 05/17/2023, 05/27/2022, 01/18/2021, Additional history exists [...] encounter Medical Devices Implanted Type Area Electric Brain Wave Equipment Mechanic Device Identifier Shelf Expiration Date Model / Serial / Lot Lens 10.5 Sn60wf - [id number] Implanted:Qty: 1 on 04/27/2014 at OR [facility] Left: Eye [employer] 02/27/2019 SN60WF.105 / [id number] / Lens 12.5 Sn60wf - [id number] Implanted:Qty: 1 on 05/11/2014 at OR [facility] Right: Eye [employer] 02/27/2019 SN60WF.125 / [id number] / documented as of this encounter Visit [...] were consensually agreed upon. Care Teams Project Admin Relationship Specialty Start Date End Date Andrae Hays MD 200 [place] [address] PCP - General Internal Medicine 04/10/16 documented as of this encounter
--- OUTSIDE RECORDS SUMMARY | 2024-03-14 15:11 | External Medical Summary | Summary of Care ---
Author Name Unknown Organization [facility] Address [address] [place] [address] Phone [phone] Care Team Providers Care Memory Care Program Director Name Role Phone Andrae Hays MD Primary Care Provider + Reason for Visit * Reason Onset Date Comments Order Request 03/09/2024 Appointment 03/09/2024 Encounter Details Date Type Department Care Team (Late st Contact Info) Description 03/09/2024 Telephone Vascular Surg [facility] [address] [place] [address] Jb Mansfield MD [address] [place] [address] Order Request; Appointment Allergies Active [...] than 7.0% ([facility]) Use as directed. Dx E11.9 [...] than 7.0% ([facility]) Take 1 Tablet by mouth in the morning. 90 Tablet 3 06/05/2023 Active Verapamil HCl ER 120 MG Oral Tablet Extended Release (Isoptin SR)Indications:Paroxys mal SVT (supraventricular tachycardia) ([facility]),AVNRT (AV carleen re-entry tachycardia) (HCC),HTN, goal below [...] status 03/28/2010 Overview: left Dr Doherty, [facility] Type 2 diabetes mellitus wit h hemoglobin A1c goal of less than 7.0% 06/07/2009 Overview: ICD-10 update of inactive term Vitamin D deficiency 05/25/2009 Primary localized osteoarthrosis, lower leg 03/01 Osteoporosis 07/14/2002 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 Overview: [place] IgG monoclonol spike monoclonal gammopathy of undetermined [...] mRNA, LNP-s, No Pre serve, 2-Dose Series ([employer]) 02/23/2021,08/26/2020,08/05/2020 COVID-19, LNP-s, No Preserve , Jasbir-sucrose, Ages 12+ ([employer]) 09/26/2021 COVID-19, MRNA-LNP, 23-24, P F, 30 MCG/0.3 mL, 12 YRS AND ABOVE, IM ([facility]) 03/22/2023 Covid-19, Mrna, Lnp-s, Pf, B [...] encounter Miscellaneous Notes * Telephone Encounter - Cece Palomo LPN [...] seen on 07/03/[address] Mansfield in [place] and plan is to f/u in 2 [...] AM EDT Office Visit General Internal Medicine [facility] [address] [facility] [place] [address] Andrae Hays MD 200 [facility] [place] [address] 03/15/2024 11:00 AM EDT Office Visit Cardiology, [facility] [address] [place] [address] Macario Liu MD [address] [place] [address] 04/19/2024 11:45 AM EDT Office Visit Ophthalmology, [facility] [address] [place] [address] Junior Mcnamara DO [address] [place] [address] 05/06/2024 12:00 PM EST Office Visit Pulmonary Medicine, [facility] [address] [place] [address] Vitaly Angel MD [address] [facility] [place] [address] 07/12/2024 10:00 AM EST Imaging Vascular Lab, [facility] [place] 132 [facility] [place] [address] 07/16/2024 3:00 PM EST Telemedicine Vascular Surg [facility] [address] [place] [address] Micha Piedra CRNP [address] [place] [address] 11/12/2024 11:00 AM EDT Telemedicine Sleep Disorders Ctr [facility] 132 [facility] [place] [phone] Idania Garner CRNP 132 [facility] [place] [address] Scheduled Orders Name Type Priority Associated Diagnoses [...] TO SMARTSET #[id number]) 12/06/2018 B-12 12/06/2023 12/05/2022, 07/06/2021, 10/18/2021, Additional history exists COVID-19 Vaccine (2022- [...] D LEVEL ONCE IN A LIFETIME-USE SMARTSET# [id number] Completed 05/17/2023, 05/27/2022, 01/18/2021, Additional history exists RETIRED - COLONOSCOPY-EVERY 5 YRS AGES 18-100 Discontinued 08/27/2023, 07/23/2011, 09/01/2001, Additional history exists HPV (Gardasil) Vaccine Aged Out No lo nger eligible based on patient's age to complete this topic MENINGOCOCCAL (MENACTRA/MENVEO) Aged Out No longer eligible based on patient's age to complete this topic documented as of this encounter Medical Devices Implanted Type Area Cultural Historian Device Identifier Shelf Expiration Date Model / Serial / Lot Lens 10.5 Sn60wf - [id number] Implanted:Qty: 1 on 04/27/2014 at OR [facility] Left: Eye [employer] 02/27/2019 SN60WF.105 / [id number] / Lens 12.5 Sn60wf - [id number] Implanted:Qty: 1 on 05/11/2014 at OR [facility] Right: Eye [employer] 02/27/2019 SN60WF.125 / [id number] / documented as of this encounter Visit [...] and were consensually agreed upon. Care Teams Memory Care Program Director Relationship Specialty Start Date End Date Andrae Hays MD [address] [place] [address] PCP - General Internal Medicine 04/10/16 documented as of this encounter
--- OUTSIDE RECORDS SUMMARY | 2024-03-14 15:11 | External Medical Summary | Summary of Care ---
Author Name Unknown Organization [facility] Address [address] [facility] [address] Phone [phone] Care Team Providers Care Event Av Operator Name Role Phone Andrae Hays MD Primary Care Provider + Reason for Visit * Reason Onset Date Comments Home Health 12/08/2023 Encounter Details Date Type Department Care Team (Late st Contact Info) Description 12/08/2023 Telephone General Internal Medicine [facility] 200 [place] [address] Andrae Hays MD [address] [place] [address] Home Health Allergies Active Allergy Reactions Criticality Noted Date [...] as of this encounter (statuses as of 03/08/2024) Medications Medication Sig Dispensed Refills Start Date [...] goal of less than 7.0% ([facility]) Use as directed. Dx E11.9 [...] PD, group B, by GOLD 2017 classification ([facility]) USE 1 INHALATION BY MOUTH DAILY 180 Each 3 06/02/2023 Active metFORMIN HCl ER 500 MG Oral Tablet Extended Release 24 Hour (Glucophage XR)Indications:Type 2 diabetes mellitus with hemoglobin A1c goal of less than 7.0% ([facility]) Take 1 Tablet by mouth in the morning. 90 Tablet 3 06/05/2023 Active Verapamil HCl ER 120 MG Oral Tablet Extended Release (Isoptin SR)Indications:Paroxys mal SVT (supraventricular tachycardia) ([facility]),AVNRT (AV carleen re-entry tachycardia) (HCC),HTN, [...] for edema 60 Tablet 3 12/05/2023 Active documented as of this encounter (statuses as of 03/08/2024) Active Problems Problem Noted Date Diagnosed Date [...] status 03/28/2010 Overview: left Dr Doherty, [facility] Type 2 diabetes mellitus wit h hemoglobin A1c goal of less than 7.0% 06/07/2009 Overview: ICD-10 update of inactive term Vitamin D deficiency 05/25/2009 Primary localized osteoarthrosis, lower leg 03/01 Osteoporosis 07/14/2002 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 Overview: [place] 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 Irritable bowel syndrome Chronic sinusitis MASSIMO on CPAP Overview: CPAP 7 cwp 3 LPM AHP documented as of this encounter (statuses as of 03/08/2024) Resolved Problems Problem Noted Date Diagnosed Date [...] as of this encounter (statuses as of 03/08/2024) Immunizations Name Administration Dates Next Due COVID-19 mRNA, LNP-s, No Pre serve, 2-Dose Series (Remote) 02/23/2021,08/26/2020,08/05/2020 COVID-19, LNP-s, No Preserve , Jasbir-sucrose, Ages 12+ (Remote) 09/26/2021 COVID-19, MRNA-LNP, 23-24, P F, 30 MCG/0.3 mL, 12 YRS AND ABOVE, IM ([employer]) 03/22/2023 Covid-19, Mrna, Lnp-s, Pf, B ivalent, 30 Mcg, IM, 12 yrs and above (Remote) 03/08/2022 H1N1 2009 Influenza, IM 07/19/2009 PPD [...] 12/23/2023 Does the household have a re lar source of income? (Household - for ages [...] encounter Miscellaneous Notes * Telephone Encounter - Loreta Odell LPN - 12/08/2023 3:41 PM EDT HH Concerns Carole RN, Calling from: [facility] Report/Concerns of: Surgical Wound Opening Symptoms: none Vitals: T 98.6 P 70 RR 20 BP 132/70 SP O2 97% RA Narrative: Carole was out to see patient for a HH visit earlier today. Lower abdominal vertical incision, 9cm in length, distal art of the wound is open 4cmx0.8cmx0.5cm deep. Draining serosanguineous fluid. Non-granulating tissue. Cleaned the wound and placed an ABD pad over the wound. Surgery done on 11/16- Diverticulitis of Sigmoid colon Spoke with Tere in the office, She spoke with Dr. Contreras, he stated to follow up with General Surgeon Dr. Graham. Routing to Dr. Graham for review. Spoke with patient requested to be seen at [facility]. Scheduled with Dr. Adams 12/08 at 3:40pm. * Telephone Encounter - Maya Bray OSA - 12/08/2023 3:38 PM EDT Reason for patient's call: Carole has called in is the Nurse with [facility] states pt. Hasincision & has opened up please advise. Caller was transferred to [facility] at the nurse line. documented in this encounter Plan of Treatment Upcoming Encounters Date Type Department Care Team (Late st Contact Info) Description 03/12/2024 11:20 AM EDT Office Visit General Internal Medicine [facility] [address] [facility] [place] [address] Andrae Hays MD 200 [facility] [place] [address] 03/15/2024 11:00 AM EDT Office Visit Cardiology, [facility] 132 [facility] [place] [address] Macario Liu MD [address] [place] [address] 04/19/2024 11:45 AM EDT Office Visit Ophthalmology, [facility] [place] [address] Junior Mcnamara DO [address] [place] [address] 05/06/2024 12:00 PM EST Office Visit Pulmonary Medicine, [facility] 132 [facility] [place] [address] Vitaly Angel MD [address] [place] [address] 11/12/2024 11:00 AM EDT Telemedicine Sleep Disorders Ctr [facility] 132 [facility] [place] [phone] Idania Garner CRNP [address] [place] [address] Scheduled Procedures Name Priority Associated Diagnoses Date/Ti [...] D LEVEL ONCE IN A LIFETIME-USE SMARTSET# [id number] Completed 05/17/2023, 05/27/2022, 01/18/2021, Additional history exists RETIRED - COLONOSCOPY-EVERY 5 YRS AGES 18-100 Discontinued 08/27/2023, 07/23/2011, 09/01/2001, Additional history exists HPV (Gardasil) Vaccine Aged Out No lo nger eligible based on patient's age to complete this topic MENINGOCOCCAL (MENACTRA/MENVEO) Aged Out No longer eligible based on patient's age to complete this topic documented as of this encounter Medical Devices Implanted Type Area Karate Black Belt Device Identifier Shelf Expiration Date Model / Serial / Lot Lens 10.5 Sn60wf - [id number] Implanted:Qty: 1 on 04/27/2014 at OR [facility] Left: Eye [employer] 02/27/2019 SN60WF.105 / [id number] / Lens 12.5 Sn60wf - [id number] Implanted:Qty: 1 on 05/11/2014 at OR [facility] Right: Eye [employer] 02/27/2019 SN60WF.125 / [id number] / documented as of this encounter Advance [...] and were consensually agreed upon. Care Teams Event Av Operator Relationship Specialty Start Date End Date Andrae Hays MD [address] [place] [address] PCP - General Internal Medicine 04/10/16 documented as of this encounter
[2024-03-14 16:02] LABS: Basophils # (auto) 0.08 K/uL (0.00-0.20); Basophils % (auto) 0.7 %; Eosinophils # (auto) 0.17 K/uL (0.00-0.50); Eosinophils % (auto) 1.5 %; Hematocrit (blood only) 39.1 % (37.0-47.0); Hemoglobin 12.8 g/dl (12.0-16.0); Immature Granulocytes # (auto) 0.05 K/uL (0.01-0.20); Immature Granulocytes % (auto) 0.4 %; Lymphocytes # (auto) 1.88 K/uL (1.20-3.40); Lymphocytes % (auto) 16.3 %; Mean Corpuscular Hemoglobin 28.5 pg (25.0-34.0); Mean Corpuscular Hgb Conc 32.7 g/dL (32.0-36.0); Mean Corpuscular Volume 87.1 fL (80.0-100.0); Mean Platelet Volume 10.3 fL (9.4-12.4); Monocytes # (auto) 0.65 K/uL (0.11-0.59); Monocytes % (auto) 5.6 %; Neutrophils % (auto) 75.5 %; Platelet Count 322 K/uL (130-400); RDW Coefficient of Variation 13.4 % (11.5-14.5); RDW Standard Deviation 42.2 fL (36.4-46.3); Red Blood Count 4.49 M/uL (4.20-5.40); White Blood Count 11.53 K/ul (4.8-10.8)
[2024-03-14 16:29] LABS: Albumin Globulin Ratio 1.4 (0.9-2); Albumin Level 4.4 gm/dl (3.4-5.0); BUN Creatinine Ratio 26.4 (10-20); Bilirubin,Total 0.8 mg/dl (0.2-1.0); Calcium 9.7 mg/dl (8.6-10.3); Creatinine Clr Calc Pharmacy 57.5 ml/min; Est GFR (African American) 69.5 ml/min; Globulin 3.2 gm/dl (2.5-4.0); Potassium 4.4 mmol/L (3.5-5.1); Total Protein 7.6 gm/dl (6.0-8.3)
--- NOTE | 2024-03-14 16:37 | Emergency Department Note ---
Impression & Plan Weakness, Acute UTI, Leukocytosis, Acute hyperglycemia, Acute dehydration ED Provider Note NAME: BRITTANEY RIVAS AGE: 78 SEX: F : 1945 ARRIVES VIA: Walk-In INFORMANT: [Patient] ED PROVIDER(S): [Eliot Rodarte MD] CHIEF COMPLAINT: Hyperglycemia HISTORY OF PRESENT ILLNESS: The patient is a 78-year-old female who admits that she has not checked her blood sugar in months. Yesterday, she checked her sugar and it was 372. The patient states that lately, she has felt disorganized, weak and unstable. She has been dizzy. She has noted some increased thirst and increased urination. The patient states that she has an appointment tomorrow with Dr. Liu of cardiology. This is in regards to her history of SVT. The patient did have the COVID vaccination 2 weeks ago. She had a flu vaccine 3 days ago. She initially thought how she was feeling was from her flu vaccination however, with the high sugar, she is concerned that there is something more happening. There has been no vomiting, no diarrhea, no abdominal pain. No cough or congestion or shortness of breath. PMHx/PSHx/Social Hx: See Below PHYSICAL EXAM: GENERAL: Patient is in no acute distress. HEENT: No acute trauma, normocephalic atraumatic, mucous membranes dry, no nasal congestion. NECK: No stridor, no adenopathy, no meningismus, trachea is midline. LUNGS: Clear to auscultation bilaterally, no wheeze, no rhonchi, breath sounds equal. HEART: Mildly tachycardic, no murmur, regular rhythm. ABDOMEN: Soft, nontender, no peritonitis. EXTREMITIES: No cyanosis, full range of motion of all the joints without pain or difficulty. Mild bilateral pedal edema. NEUROLOGIC: Oriented x 3, no acute motor or sensory deficits, no focal weakness. SKIN: No jaundice, no diaphoresis. DIFFERENTIAL DIAGNOSIS: Hyperglycemia, dehydration, electrolyte imbalance, UTI, anemia, dysrhythmia, among others. EMERGENCY DEPARTMENT PROCEDURES: MEDICAL DECISION MAKING: There is a mild leukocytosis, this could be consistent with infection. There is a normal hemoglobin and platelet count. No renal failure. Glucose was high at over 300. No worrisome liver enzyme elevation. Patient appeared to be in a euthyroid state. ECG shows what appears to be a sinus tachycardia with a long first-degree AV block. Repeat ECG showed a sinus rhythm with a first-degree AV block. Cardiac enzyme testing x 1 is not consistent with acute cardiac injury. Urinalysis is consistent with infection. On exam, the patient was initially tachycardic. She denied chest pain. The patient received IV saline, 1.5 L. She received IV ceftriaxone as antibiotic coverage. With the above treatment, the patient's blood pressure has decreased. She is resting. She is feeling improved. The patient appears to have a UTI. This has led to hyperglycemia and dehydration. Given her complaints, given her findings, I do think a hospital stay is warranted. She requires further hydration, further antibiotic therapy. I spoke with the patient and case management. The on-call hospitalist was consulted. Of note, I did speak with Dr. Liu of cardiology as the initial ECG was read by the computer as an accelerated junctional rhythm. After the heart rate decreased, this was found not to be the case. Prior/Outside records/notes reviewed: None ECG per my interpretation: Indication was tachycardia. The ECG shows what appears to be an accelerated junctional rhythm versus a sinus tach with a hidden P wave. The rate is 106. There is no acute ST elevation, no PVCs. There is some nonspecific ST change. The QTc is 472. Compared to an ECG from 10 June 2023, the rate has increased. Potential junctional rhythm is now present. Repeat ECG per my interpretation: Indication was tachycardia. The ECG shows a sinus rhythm with a longer first-degree AV block. The rate is 87. There is some nonspecific ST change. There may be an old inferior infarct. There is poor R wave progression. There is no acute ST elevation, no PVCs. The QTc is 447. Compared to the earlier ECG, the rate has decreased. Continuous Cardiac Monitoring per my interpretation: An order was placed for continuous cardiac monitoring. The monitor shows a rate of 98 with a sinus rhythm and longer for significant block Imaging/x-ray results per my interpretation: Chronic Medical/Social conditions affecting care: Advanced age, history of diabetes Care/Management discussed with: Case management, the on-call hospitalist. On- call cardiology from [facility]-Dr. Liu Level of care consideration(s): After review of the information above and other included data: --I believe the patient requires escalation of care to admission DISPOSITION: Admission Past Med/Surg History Problem List Acute dehydration (Acute) Acute hyperglycemia (Acute) Leukocytosis (Acute) Acute UTI (Acute) Weakness (Acute) Real time reverse transcriptase PCR positive for 2019 novel coronavirus (Acute) Fistula (Acute) Leukocytosis (Acute) Acute UTI (Acute) Diverticulitis (Acute) Lower abdominal pain (Acute) Diverticulitis of large intestine with complication Chronic diastolic CHF (congestive heart failure) MASSIMO (obstructive sleep apnea) SVT (supraventricular tachycardia) (Acute) pt for EPS with possible ablation. Redicussed the procedure and potential risks with the patient and consents obtained Encounter for pre-operative examination Pulmonary nodules COPD exacerbation Elevated troponin SVT (supraventricular tachycardia) (Acute) DVT prophylaxis Tachyarrhythmia Asthma, moderate persistent (Chronic) rescue inhaler H/O thyroid nodule (Acute) History of hysterectomy (Chronic) History of cataract surgery (Chronic) RT/LEFT Anxiety (Chronic) Depression (Chronic) Diastolic dysfunction (Chronic) Hypertension (Chronic) Hyperlipidemia (Chronic) DM type 2 (diabetes mellitus, type 2) (Chronic) NIDDM Carotid stenosis (Chronic) s/p left carotid endarterectomy 2015, Osteoarthritis (Chronic) IBS (irritable bowel syndrome) (Chronic) Nocturnal hypoxia (Chronic) Obstructive sleep apnea on CPAP (Chronic) CPAP & O2 3L Chronic sinusitis (Chronic) COPD, moderate (Chronic) GERD (gastroesophageal reflux disease) (Chronic) MGUS (monoclonal gammopathy of unknown significance) (Chronic) H/O sinus surgery (Chronic) x2 - 05/09/11 - MAC #3, ETT #7.0 S/P total knee arthroplasty (Chronic) "left" S/P section (Chronic) X 2 S/P cholecystectomy (Chronic) S/P tonsillectomy and adenoidectomy (Chronic) S/P carotid endarterectomy (Chronic) "left, 09/2015" Medical History Bronchiectasis Colonic fistula History of COVID-19 07/26/23, home test, residual cough Asthma nebulizer History of diverticulitis On home oxygen therapy O2 1L with exertion & 3L hs with CPAP Degenerative disc disease SVT (supraventricular tachycardia) hx cardiac ablation, Dr. Liu Surgical History Hx of cardiac catheterization no blockages Hx of total hysterectomy with removal of both tubes and ovaries Hx of bilateral cataract extraction History of anesthesia reaction pulse ox drops with any anesthesia History of arthroscopy of left knee History of cardiac radiofrequency ablation (RFA) x2, last 2019 History of dilatation and curettage History of esophagogastroduodenoscopy (EGD) History of colonoscopy H/O exploratory laparotomy History of tooth extraction Family History Mother Pancreatic cancer Father Prostate cancer Brother Family history of diabetes mellitus Other No family history of adverse response to anesthesia Social History Smoking Status: Unknown if ever smoked Tobacco Type: Cigarettes Cigarettes Per Day: 1 ppd; Second Hand Exposure: No; Do You Dip or Chew Tobacco: No; Hx Alcohol Use: No Hx Substance Use: No Preferred Language: [place] Communication Ability: Effective Visual Impairment: No Limitations Hearing Ability: Normal Boat Puller Required: No Beliefs That Will Affect Care: None marital status: Current Living Situation: Alone current occupational status: retired Feels Safe at Home: Yes Assistive Devices: Cane, CPAP, Glasses and Oxygen - at Night Allergies Allergies Allergy/AdvReac Type Severity Reaction Status Date / Time CAMMIE Inhibitors Allergy Intermediate COUGH Verified 08/27/23 11:50 cefaclor Allergy Intermediate HIVES Verified 08/27/23 11:50 erythromycin base Allergy Intermediate HIVES Verified 08/27/23 11:50 hyoscyamine Allergy Intermediate HALLUCINATI Verified 08/27/23 11:50 ONS ipratropium Allergy Intermediate "lungs get Verified 08/27/23 11:50 itchy" listed in [facility] EMR saccharin Allergy Intermediate WHEEZING Verified 08/27/23 11:50 Sulfa (Sulfonamide Allergy Intermediate HIVES Verified 08/27/23 11:50 Antibiotics) sulfite Allergy Intermediate WHEEZING Verified 08/27/23 11:50 etodolac AdvReac Intermediate STOMACH Verified 08/27/23 11:50 PAIN levofloxacin AdvReac Intermediate BRAIN FOG Verified 08/27/23 11:50 AND SPACEY sorbitol AdvReac Intermediate STOMACH Verified 08/27/23 11:50 PAIN Home Meds Home Medications Medication Instructions Recorded Confirmed aspirin 81 mg tablet,delayed 81 mg PO QAM 05/19/18 03/14/24 release (Andreas Low Dose Aspirin) cholecalciferol (vitamin D3) 25 1,000 unit PO QAM 05/19/18 03/14/24 mcg (1,000 unit) capsule (Vitamin D3) famotidine 20 mg tablet (Pepcid) 20 mg PO BID 05/19/18 03/14/24 multivitamin 1 tab PO QAM 05/19/18 03/14/24 fluticasone furoate 200 1 inh inhalation QAM 11/18/18 03/14/24 mcg-vilanterol 25 mcg/dose inhalation powder (Breo Ellipta) albuterol sulfate 90 mcg/actuation 2 puff inhalation Q4H PRN 09/18/19 03/14/24 aerosol inhaler (ProAir HFA) Cough,SOB or Wheeze levalbuterol HCl 0.63 mg/3 mL 0.63 mg inhalation DIRECTED PRN 11/28/20 03/14/24 solution for nebulization (Xopenex) Shortness Of Breath Or Wheezing spironolactone 25 mg tablet 12.5 mg PO QAM 10/12/21 03/14/24 flecainide 50 mg tablet 50 mg PO Q12H 08/26/22 03/14/24 simethicone 180 mg capsule 180 mg PO BID PRN STOMACH PAIN 08/26/22 03/14/24 acetaminophen 500 mg tablet 1,000 mg PO Q6H PRN Pain (Scale 08/22/23 03/14/24 Score 1-3) furosemide 20 mg tablet 20 mg PO UD PRN leg swelling 08/22/23 03/14/24 guaifenesin 600 mg tablet, 600 mg PO Q12H PRN Cough 08/22/23 03/14/24 extended release 12 hr (Mucinex) levocetirizine 5 mg tablet (Xyzal) 5 mg PO HS 08/22/23 03/14/24 losartan 100 mg tablet 100 mg PO QAM 08/22/23 03/14/24 metformin 500 mg tablet,extended 500 mg PO QAM 08/22/23 03/14/24 release 24 hr verapamil 120 mg tablet 120 mg PO QAM 02/23/24 09/15/24 fexofenadine 180 mg tablet 180 mg PO HS 03/14/24 03/14/24 Results & Data (ED) Vital Signs Vital Signs - 24 hr 03/14/24 15:09 03/14/24 16:58 03/14/24 17:04 Temperature 36.2 C L Temperature Source Temporal Artery Scan Pulse Rate 111 H 98 H Pulse Rate [Apical] 108 H Pulse Rate from SpO2 Sensor Pulse Rhythm [Apical] Pulse Strength [Apical] Respiratory Rate 19 13 Respiratory Effort / Characteristics Spontaneous Respiratory Depth Normal Respiratory Pattern Regular Blood Pressure 127/78 Blood Pressure [Right Arm] 131/108 H Blood Pressure Mean 94 Blood Pressure Mean [Right Arm] 115 Blood Pressure Position [Right Arm] Pulse Oximetry 94 96 Oxygen Delivery Method Room Air Nasal Cannula Oxygen Flow Rate 2 Sepsis Recent Fever Within 48 Hours No Sepsis New/Unexplained Change in Mental Status N/A Sepsis Action Taken by Nursing No Action Required 03/14/24 17:06 03/14/24 17:36 03/14/24 19:20 Temperature Temperature Source Pulse Rate 95 H 91 H Pulse Rate [Apical] 83 Pulse Rate from SpO2 Sensor 95 H 91 H Pulse Rhythm [Apical] Regular Pulse Strength [Apical] Normal Respiratory Rate 18 19 18 Respiratory Effort / Characteristics Non-Labored Spontaneous Respiratory Depth Normal Respiratory Pattern Regular Blood Pressure 150/102 H Blood Pressure [Right Arm] 149/90 H Blood Pressure Mean 118 Blood Pressure Mean [Right Arm] 109 Blood Pressure Position [Right Arm] Semi-fowlers Pulse Oximetry 98 99 95 Oxygen Delivery Method Room Air Room Air Nasal Cannula Oxygen Flow Rate 2 Sepsis Recent Fever Within 48 Hours Sepsis New/Unexplained Change in Mental Status Sepsis Action Taken by Usp Medications Current Medication List: was personally reviewed by me Laboratory Data Attestation: I reviewed the patient's lab results. 03/14/24 15:29 03/14/24 15:29 Lab Results 03/14/24 03/14/24 03/14/24 Range/Units 15:12 15:29 16:25 WBC 11.53 H (4.8-10.8) K/ul RBC 4.49 (4.20-5.40) M/uL Hgb 12.8 (12.0-16.0) g/dl Hct 39.1 (37.0-47.0) % MCV 87.1 (80.0-100.0) fL MCH 28.5 (25.0-34.0) pg MCHC 32.7 (32.0-36.0) g/dL RDW Std Deviation 42.2 (36.4-46.3) fL RDW Coeff of Tasha 13.4 (11.5-14.5) % Plt Count 322 (130-400) K/uL MPV 10.3 (9.4-12.4) fL Immature Gran % (Auto) 0.4 % Neut % (Auto) 75.5 % Lymph % (Auto) 16.3 % [place] % (Auto) 5.6 % Eos % (Auto) 1.5 % Baso % (Auto) 0.7 % Neut # (Auto) 8.70 H (1.40-6.50) K/uL Lymph # (Auto) 1.88 (1.20-3.40) K/uL [place] # (Auto) 0.65 H (0.11-0.59) K/uL Eos # (Auto) 0.17 (0.00-0.50) K/uL Baso # (Auto) 0.08 (0.00-0.20) K/uL Immature Gran # (Auto) 0.05 (0.01-0.20) K/uL Sodium 136 (136-145) mmol/L Potassium 4.4 (3.5-5.1) mmol/L Chloride 100 (98-107) mmol/L Carbon Dioxide 25 (21-32) mmol/L Anion Gap 11 (3-11) BUN 24 H (6-23) mg/dl Creatinine 0.91 (0.6-1.2) mg/dl Est Cr Clr Drug Dosing 57.5 ml/min Est GFR ( Amer) 69.5 ml/min Est GFR (Non-Af Amer) 60.0 ml/min BUN/Creatinine Ratio 26.4 H (10-20) Glucose 314 H* (70-99(Fasting)) mg/dl POC Glucose 311 H* (70-99) mg/dl Calcium 9.7 (8.6-10.3) mg/dl Magnesium 1.7 (1.7-2.4) mg/dl Total Bilirubin 0.8 (0.2-1.0) mg/dl AST 17 (13-39) U/L ALT 18 (7-52) U/L Alkaline Phosphatase 131 H (34-104) U/L Troponin I High Sens 5.3 (0-14) pg/ml Total Protein 7.6 (6.0-8.3) gm/dl Albumin 4.4 (3.4-5.0) gm/dl Globulin 3.2 (2.5-4.0) gm/dl Albumin/Globulin Ratio 1.4 (0.9-2) TSH 0.679 (0.300-4.500) uIu/ml Urine Color Yellow Urine Appearance Cloudy A (Clear) Urine pH 5.0 (4.5-7.5) Ur Specific [place] 1.035 H (1.000-1.030) Urine Protein Trace H (Negative) Urine Glucose (UA) 3+ H (Negative) Urine Ketones 1+ H (Negative) Urine Blood Negative (Negative) Urine Nitrite Positive A (Negative) Urine Bilirubin Negative (Negative) Urine Urobilinogen Negative (Negative) Ur Leukocyte Esterase 1+ H (Negative) Urine WBC (Auto) >50 H (0-5) /hpf Urine RBC (Auto) 0-2 (0-2) /hpf U Hyaline Cast (Auto) 3-5 H (0-2) /lpf U Epithel Cells (Auto) 3-5 H (0-2) /hpf Urine Bacteria (Auto) 3+ H (None Seen) Urine Yeast Present A (None Prsent) 03/14/24 Range/Units 18:20 WBC (4.8-10.8) K/ul RBC (4.20-5.40) M/uL Hgb (12.0-16.0) g/dl Hct (37.0-47.0) % MCV (80.0-100.0) fL MCH (25.0-34.0) pg MCHC (32.0-36.0) g/dL RDW Std Deviation (36.4-46.3) fL RDW Coeff of Tasha (11.5-14.5) % Plt Count (130-400) K/uL MPV (9.4-12.4) fL Immature Gran % (Auto) % Neut % (Auto) % Lymph % (Auto) % [place] % (Auto) % Eos % (Auto) % Baso % (Auto) % Neut # (Auto) (1.40-6.50) K/uL Lymph # (Auto) (1.20-3.40) K/uL [place] # (Auto) (0.11-0.59) K/uL Eos # (Auto) (0.00-0.50) K/uL Baso # (Auto) (0.00-0.20) K/uL Immature Gran # (Auto) (0.01-0.20) K/uL Sodium (136-145) mmol/L Potassium (3.5-5.1) mmol/L Chloride (98-107) mmol/L Carbon Dioxide (21-32) mmol/L Anion Gap (3-11) BUN (6-23) mg/dl Creatinine (0.6-1.2) mg/dl Est Cr Clr Drug Dosing ml/min Est GFR ( Amer) ml/min Est GFR (Non-Af Amer) ml/min BUN/Creatinine Ratio (10-20) Glucose (70-99(Fasting)) mg/dl POC Glucose 276 H (70-99) mg/dl Calcium (8.6-10.3) mg/dl Magnesium (1.7-2.4) mg/dl Total Bilirubin (0.2-1.0) mg/dl AST (13-39) U/L ALT (7-52) U/L Alkaline Phosphatase (34-104) U/L Troponin I High Sens (0-14) pg/ml Total Protein (6.0-8.3) gm/dl Albumin (3.4-5.0) gm/dl Globulin (2.5-4.0) gm/dl Albumin/Globulin Ratio (0.9-2) TSH (0.300-4.500) uIu/ml Urine Color Urine Appearance (Clear) Urine pH (4.5-7.5) Ur Specific [place] (1.000-1.030) Urine Protein (Negative) Urine Glucose (UA) (Negative) Urine Ketones (Negative) Urine Blood (Negative) Urine Nitrite (Negative) Urine Bilirubin (Negative) Urine Urobilinogen (Negative) Ur Leukocyte Esterase (Negative) Urine WBC (Auto) (0-5) /hpf Urine RBC (Auto) (0-2) /hpf U Hyaline Cast (Auto) (0-2) /lpf U Epithel Cells (Auto) (0-2) /hpf Urine Bacteria (Auto) (None Seen) Urine Yeast (None Prsent) Administered Medications Acetaminophen (Acetaminophen 500 Mg Tab) 1,000 mg PO Q6H PRN PRN Reason: Pain (Scale Score 1-3) Stop: 04/13/24 21:44 Last Admin: 03/14/24 22:37 Dose: 1,000 mg Documented By: JARRETT Magnesium Sulfate/Dextrose (Magnesium Sulfate / D5w) 1 gm in 100 mls @ 50 mls/hr IV Q2H FOR[facility], [facility]–1983 Stop: 03/14/24 23:59 Last Admin: 03/14/24 21:14 Dose: 50 mls/hr Documented By: RAEANN Sodium Chloride (Nss) 1,000 mls @ 80 mls/hr IV .[id number] FOR[facility], 1928–1983 Stop: 03/15/24 08:26 Last Admin: 03/14/24 21:14 Dose: 80 mls/hr Documented By: RAEANN Insulin Aspart (Insulin Aspart Per Unit Charge) 0 units SC ACHS GHASSAN Stop: 04/13/24 20:59 Last Admin: 03/14/24 21:11 Dose: 2 units Documented By: RAEANN Co-signed By: Discontinued Medications Sodium Chloride (Nss) 1,000 mls @ 999 mls/hr IV .[id number] ONE Stop: 03/14/24 17:32 Last Infusion: 03/14/24 18:00 Dose: Infused Documented By: Admin: 03/14/24 16:59 Dose: 999 mls/hr Documented By: CHANEL Ceftriaxone Sodium (Rocephin) 2,000 mg in 50 mls @ 100 mls/hr IV NOW STA Stop: 03/14/24 17:31 Last Infusion: 03/14/24 17:44 Dose: Infused Documented By: Admin: 03/14/24 17:14 Dose: 100 mls/hr Documented By: CHANEL Sodium Chloride (Nss) 500 mls @ 999 mls/hr IV .Q31M ONE Stop: 03/14/24 18:54 Last Infusion: 03/14/24 19:14 Dose: Infused Documented By: Admin: 03/14/24 18:36 Dose: 999 mls/hr Documented By: CHANEL Discharge Plan Visit Data Chief Complaint: Hyperglycemia Stated Complaint: HIGH BLOOD SUGAR, BALANCE OFF, FORGETFUL ED Provider: Eliot oRdarte Discharge Problem: Weakness, Acute UTI, Leukocytosis, Acute hyperglycemia, Acute dehydration Patient Disposition: Admitted As Inpatient Condition: Fair Discharge Instructions Interventions: ED Discharge Assessment Last Done: 03/14/24 21:26 Discharge Problem: Leukocytosis Qualifiers: Leukocytosis type: unspecified Qualified Code(s): D72.829 - Elevated white blood cell count, unspecified
[2024-03-14] MEDS: SODIUM CHLORIDE 0.9% 1,000 ML IV ONE (16:59)
[2024-03-14 17:00] LABS: Appearance Urine Cloudy (Clear); Bacteria Urine Automated 3+ (None Seen); Bilirubin Urine Negative (Negative); Blood Urine Negative (Negative); Color Urine Yellow; Glucose Urine UA 3+ (Negative); Ketones Urine 1+ (Negative); Leukocyte Esterase Urine 1+ (Negative); Nitrite Urine Positive (Negative); Protein Urine Trace (Negative); RBC Urine Automated 0-2 /hpf (0-2); Specific Gravity Urine 1.035 (1.000-1.030); Urobilinogen Urine Negative (Negative); WBC Urine Automated >50 /hpf (0-5)
[2024-03-14 17:01] LABS: Magnesium 1.7 mg/dl (1.7-2.4)
[2024-03-14 17:08] LABS: Troponin I High Sensitivity 5.3 pg/ml (0-14)
[2024-03-14] MEDS: cefTRIAXone SODIUM 2,000 MG/50 ML BAG IV STA (17:14)
[2024-03-14 17:22] LABS: Thyroid Stimulating Hormone 0.679 uIu/ml (0.300-4.500)
[2024-03-14] MEDS: SODIUM CHLORIDE 0.9% 500 ML IV ONE (18:36)
--- NOTE | 2024-03-14 19:14 | History & Physical Report ---
Date of Service March 14, 2024 Assessment & Plan (1) Acute UTI: (2) Acute hyperglycemia: (3) Acute dehydration: (4) Chronic diastolic CHF (congestive heart failure): (5) MASSIMO (obstructive sleep apnea): (6) SVT (supraventricular tachycardia): (7) DM type 2 (diabetes mellitus, type 2): Plan Please refer to attending addendum for details regarding A/P. A total of 50 min was spent coordinating, documenting, and providing care for this patient excluding time spent in the performance of separately billed services. This included personally viewing all current laboratories and imaging studies, medication reconciliation, outpatient chart review, and discussion with specialists. History of Present Illness Chief Complaint: Elevated BSG for few days. Primary Care Provider: Andrae Hays MD This is a 78-year-old female who has a significant past medical history of T2DM with polyneuropathy, HTN, HLD, history of SVT, COPD, bronchiectasis, MASSIMO on CPAP, chronic diastolic dysfunction, GERD, osteoporosis, hidradenitis suppurativa, MUGA's, depression, carotid stenosis status post endarterectomy who presents to ED secondary to hyperglycemia. She reports not checking her BSG for some time now and when she checked it yesterday 372. She reports polydipsia, Polyuria, increased urinary incontinence which has been present ever since her colovesicular fistula surgery in October and generally feeling unwell. She denies any dysuria, hematuria, fever, chills, sweats, lightheadedness, dizziness, chest pain, shortness breath at rest, nausea, vomiting or abdominal pain. She does report that she recently got her COVID-vaccine 2 weeks ago and a flu vaccine 3 days ago. She reports that over the years her A1c has been steadily climbing and she thinks her last A1c was 8.0. Allergies Allergy/AdvReac Type Severity Reaction Status Date / Time CAMMIE Inhibitors Allergy Intermediate COUGH Verified 08/27/23 11:50 cefaclor Allergy Intermediate HIVES Verified 08/27/23 11:50 erythromycin base Allergy Intermediate HIVES Verified 08/27/23 11:50 hyoscyamine Allergy Intermediate HALLUCINATI Verified 08/27/23 11:50 ONS ipratropium Allergy Intermediate "lungs get Verified 08/27/23 11:50 itchy" listed in [facility] EMR saccharin Allergy Intermediate WHEEZING Verified 08/27/23 11:50 Sulfa (Sulfonamide Allergy Intermediate HIVES Verified 08/27/23 11:50 Antibiotics) sulfite Allergy Intermediate WHEEZING Verified 08/27/23 11:50 etodolac AdvReac Intermediate STOMACH Verified 08/27/23 11:50 PAIN levofloxacin AdvReac Intermediate BRAIN FOG Verified 08/27/23 11:50 AND SPACEY sorbitol AdvReac Intermediate STOMACH Verified 08/27/23 11:50 PAIN Home Medications Medication Instructions Recorded Confirmed Type aspirin 81 mg tablet,delayed 81 mg PO QAM 05/19/18 03/14/24 History release (Andreas Low Dose Aspirin) cholecalciferol (vitamin D3) 25 1,000 unit PO QAM 05/19/18 03/14/24 History mcg (1,000 unit) capsule (Vitamin D3) famotidine 20 mg tablet (Pepcid) 20 mg PO BID 05/19/18 03/14/24 History multivitamin 1 tab PO QAM 05/19/18 03/14/24 History fluticasone furoate 200 1 inh inhalation QAM 11/18/18 03/14/24 History mcg-vilanterol 25 mcg/dose inhalation powder (Breo Ellipta) albuterol sulfate 90 mcg/actuation 2 puff inhalation Q4H PRN 09/18/19 03/14/24 History aerosol inhaler (ProAir HFA) Cough,SOB or Wheeze levalbuterol HCl 0.63 mg/3 mL 0.63 mg inhalation DIRECTED PRN 11/28/20 03/14/24 History solution for nebulization (Xopenex) Shortness Of Breath Or Wheezing spironolactone 25 mg tablet 12.5 mg PO QAM 10/12/21 03/14/24 History flecainide 50 mg tablet 50 mg PO Q12H 08/26/22 03/14/24 History simethicone 180 mg capsule 180 mg PO BID PRN STOMACH PAIN 08/26/22 03/14/24 History acetaminophen 500 mg tablet 1,000 mg PO Q6H PRN Pain (Scale 08/22/23 03/14/24 History Score 1-3) furosemide 20 mg tablet 20 mg PO UD PRN leg swelling 08/22/23 03/14/24 History guaifenesin 600 mg tablet, 600 mg PO Q12H PRN Cough 08/22/23 03/14/24 History extended release 12 hr (Mucinex) levocetirizine 5 mg tablet (Xyzal) 5 mg PO HS 08/22/23 03/14/24 History losartan 100 mg tablet 100 mg PO QAM 08/22/23 03/14/24 History metformin 500 mg tablet,extended 500 mg PO QAM 08/22/23 03/14/24 History release 24 hr verapamil 120 mg tablet 120 mg PO QAM 08/22/23 03/14/24 History fexofenadine 180 mg tablet 180 mg PO HS 03/14/24 03/14/24 History Past Med/Surg History Problem List Accelerated junctional rhythm (Acute) Acute dehydration (Acute) Acute hyperglycemia (Acute) Leukocytosis (Acute) Acute UTI (Acute) Weakness (Acute) Real time reverse transcriptase PCR positive for 2019 novel coronavirus (Acute) Fistula (Acute) Leukocytosis (Acute) Acute UTI (Acute) Diverticulitis (Acute) Lower abdominal pain (Acute) Diverticulitis of large intestine with complication Chronic diastolic CHF (congestive heart failure) MASSIMO (obstructive sleep apnea) SVT (supraventricular tachycardia) (Acute) pt for EPS with possible ablation. Redicussed the procedure and potential risks with the patient and consents obtained Encounter for pre-operative examination Pulmonary nodules COPD exacerbation Elevated troponin SVT (supraventricular tachycardia) (Acute) DVT prophylaxis Tachyarrhythmia Asthma, moderate persistent (Chronic) rescue inhaler H/O thyroid nodule (Acute) History of hysterectomy (Chronic) History of cataract surgery (Chronic) RT/LEFT Anxiety (Chronic) Depression (Chronic) Diastolic dysfunction (Chronic) Hypertension (Chronic) Hyperlipidemia (Chronic) DM type 2 (diabetes mellitus, type 2) (Chronic) NIDDM Carotid stenosis (Chronic) s/p left carotid endarterectomy 2016, Osteoarthritis (Chronic) IBS (irritable bowel syndrome) (Chronic) Nocturnal hypoxia (Chronic) Obstructive sleep apnea on CPAP (Chronic) CPAP & O2 3L Chronic sinusitis (Chronic) COPD, moderate (Chronic) GERD (gastroesophageal reflux disease) (Chronic) MGUS (monoclonal gammopathy of unknown significance) (Chronic) H/O sinus surgery (Chronic) x2 - 05/09/11 - MAC #3, ETT #7.0 S/P total knee arthroplasty (Chronic) "left" S/P section (Chronic) X 2 S/P cholecystectomy (Chronic) S/P tonsillectomy and adenoidectomy (Chronic) S/P carotid endarterectomy (Chronic) "left, 09/2015" Medical History Bronchiectasis Colonic fistula History of COVID-19 07/26/23, home test, residual cough Asthma nebulizer History of diverticulitis On home oxygen therapy O2 1L with exertion & 3L hs with CPAP Degenerative disc disease SVT (supraventricular tachycardia) hx cardiac ablation, Dr. Liu Surgical History Hx of cardiac catheterization no blockages Hx of total hysterectomy with removal of both tubes and ovaries Hx of bilateral cataract extraction History of anesthesia reaction pulse ox drops with any anesthesia History of arthroscopy of left knee History of cardiac radiofrequency ablation (RFA) x2, last 2019 History of dilatation and curettage History of esophagogastroduodenoscopy (EGD) History of colonoscopy H/O exploratory laparotomy History of tooth extraction Family History Mother Pancreatic cancer Father Prostate cancer Brother Family history of diabetes mellitus Other No family history of adverse response to anesthesia Social History Smoking Status: Unknown if ever smoked Tobacco Type: Cigarettes Cigarettes Per Day: 1 ppd; Second Hand Exposure: No; Do You Dip or Chew Tobacco: No; Hx Alcohol Use: No Hx Substance Use: No Preferred Language: Bulgarian Communication Ability: Effective Visual Impairment: No Limitations Hearing Ability: Normal Filament Coil Winder Required: No Beliefs That Will Affect Care: None marital status: Current Living Situation: Alone current occupational status: retired Feels Safe at Home: Yes Assistive Devices: Cane, CPAP, Glasses and Oxygen - at Night Review of Systems Review of Systems: All systems reviewed & are unremarkable except as noted in HPI & below Results & Data Results & Data Vital Signs (Past 12 Hours) Vital Signs Temp Pulse Pulse Resp BP BP Pulse Ox 03/14/24 17:36 91 H 19 150/102 H 99 03/14/24 17:06 95 H 18 98 03/14/24 17:04 98 H 03/14/24 16:58 108 H 13 131/108 H 96 03/14/24 15:09 36.2 C L 111 H 19 127/78 94 O2 Del Method O2 Flow Rate 03/14/24 17:36 Room Air 03/14/24 17:06 Room Air 03/14/24 17:04 03/14/24 16:58 Nasal Cannula 2 03/14/24 15:09 Room Air Laboratory Results I have independently reviewed and interpreted patient's admitting labs including CBC, CMP, tsh, UA, trop, mag Medications Administered Medication List Discontinued Medications Sodium Chloride (Nss) 1,000 mls @ 999 mls/hr IV .Q1H1M ONE Stop: 03/14/24 17:32 Last Infusion: 03/14/24 18:00 Dose: Infused Documented By: Admin: 03/14/24 16:59 Dose: 999 mls/hr Documented By: CHANEL Ceftriaxone Sodium (Rocephin) 2,000 mg in 50 mls @ 100 mls/hr IV NOW STA Stop: 03/14/24 17:31 Last Infusion: 03/14/24 17:44 Dose: Infused Documented By: Admin: 03/14/24 17:14 Dose: 100 mls/hr Documented By: CHANEL Sodium Chloride (Nss) 500 mls @ 999 mls/hr IV .Q31M ONE Stop: 03/14/24 18:54 Last Infusion: 03/14/24 19:14 Dose: Infused Documented By: Admin: 03/14/24 18:36 Dose: 999 mls/hr Documented By: CHANEL Code Status & VTE Plan Code Status FULL CODE Supervising Physician Co-Signing Physician Notes Attending Addendum: Case reviewed with the advanced practitioner. I have personally performed a history and physical examination on the patient. I have reviewed the advanced practitioner's documentation on the date of service referenced in note, and I agree with, and take responsibility for the plan of care. #NIDDMII, uncontrolled -will give 10u IV insulin now, start ISS -fluids -a1c 8.1 in OP setting in october, repeat in a.m. -consider uptitrating metformin and discharge, perioperative educator #UTI -continue IV rocephin -Ucx #Htn -home meds -IV hydralazine >180/100 #MASSIMO on CPAP -CPAP QHS #SVT/AVNRT #HFpEF #carotid stenosis s/p CEA #COPD 2/2 prior tobacco use #GERD #IBS -home meds IVF Diabetic diet Replete electrolytes Lovenox dvt ppx
[2024-03-14] MEDS ORDERED: hydrALAZINE HCL 20 MG/ML VIAL IV PRN (19:45)
[2024-03-14] MEDS ORDERED: CARBOHYDRATES FOR HYPOGLYCEMIA PO PRN (19:47)
[2024-03-14] MEDS ORDERED: GLUCAGON FOR INJ 1 MG VIAL SQ PRN (19:47)
[2024-03-14] MEDS ORDERED: GLUCOSE 40% GEL 15 GM TUBE PO PRN (19:47)
[2024-03-14] MEDS ORDERED: DEXTROSE 50% 50 ML SYRINGE IV PRN (19:47)
[2024-03-14] MEDS ORDERED: GLUCOSE 10 TAB/TUBE PO PRN (19:47)
[2024-03-14] MEDS: INSULIN ASPART PER UNIT CHARGE SC SCH (21:11)
[2024-03-14] MEDS: SODIUM CHLORIDE 0.9% 1,000 ML IV SCH (21:14)
[2024-03-14] MEDS: MAGNESIUM SULFATE / D5W 1 GM/100 ML BAG IV SCH (21:14)
[2024-03-14] MEDS ORDERED: ALBUTEROL HFA 8 GM INHALER INH PRN (21:45)
[2024-03-14] MEDS ORDERED: ACETAMINOPHEN 325 MG TAB PO PRN (21:45)
[2024-03-14] MEDS ORDERED: LEVALBUTEROL HCL 0.63 MG/3 ML NEB INH PRN (21:45)
[2024-03-14] MEDS ORDERED: guaiFENesin 600 MG TABCR PO PRN (21:45)
[2024-03-14] MEDS: ACETAMINOPHEN 500 MG TAB PO PRN (22:37)
[2024-03-14] MEDS: FLECAINIDE ACETATE 100 MG TABLET PO SCH (23:45)
[2024-03-14] MEDS: FAMOTIDINE 20 MG TAB PO SCH (23:45)
[2024-03-14] MEDS: FEXOFENADINE HCL 180 MG TAB PO SCH (23:46)
[2024-03-14] MEDS: ENOXAPARIN INJ 40 MG/0.4 ML SYR SQ SCH (23:46)
--- NOTE | 2024-03-15 01:52 | Ultrasound Report ---
Exam(s): US VENOUS LEFT LOWER EXTREMITY EXAM: US Duplex Left Lower Extremity Veins CLINICAL HISTORY: Reason for exam: swelling unilateral. TECHNIQUE: Real-time duplex ultrasound scan of the left lower extremity veins integrating B-mode two-dimensional vascular structure, Doppler spectral analysis, color flow Doppler imaging and compression. COMPARISON: No relevant prior studies available. FINDINGS: Deep veins: No DVT in the visualized common femoral, femoral, proximal deep femoral or popliteal veins. The veins demonstrate normal color flow, are normally compressible, with normal phasic flow and/or augmentation response. Superficial veins: No thrombus in the visualized great saphenous vein. Soft tissues: There is soft tissue edema.. IMPRESSION: No ultrasound evidence of deep venous thrombosis in the left lower extremity.. Electronically signed by: Ronny Manzano MD 03/15/24 01:51 AM
[2024-03-15 06:43] LABS: Basophils # (auto) 0.09 K/uL (0.00-0.20); Basophils % (auto) 0.8 %; Eosinophils # (auto) 0.27 K/uL (0.00-0.50); Eosinophils % (auto) 2.5 %; Hematocrit (blood only) 39.4 % (37.0-47.0); Hemoglobin 12.4 g/dl (12.0-16.0); Immature Granulocytes # (auto) 0.04 K/uL (0.01-0.20); Immature Granulocytes % (auto) 0.4 %; Lymphocytes # (auto) 1.93 K/uL (1.20-3.40); Lymphocytes % (auto) 17.9 %; Mean Corpuscular Hemoglobin 28.2 pg (25.0-34.0); Mean Corpuscular Hgb Conc 31.5 g/dL (32.0-36.0); Mean Corpuscular Volume 89.5 fL (80.0-100.0); Mean Platelet Volume 10.1 fL (9.4-12.4); Monocytes # (auto) 0.74 K/uL (0.11-0.59); Monocytes % (auto) 6.9 %; Neutrophils # (auto) 7.73 K/uL (1.40-6.50); Neutrophils % (auto) 71.5 %; Platelet Count 298 K/uL (130-400); RDW Coefficient of Variation 13.4 % (11.5-14.5); RDW Standard Deviation 43.8 fL (36.4-46.3)
[2024-03-15 07:05] LABS: Albumin Globulin Ratio 1.4 (0.9-2); Albumin Level 4.1 gm/dl (3.4-5.0); BUN Creatinine Ratio 23.9 (10-20); Bilirubin,Total 0.6 mg/dl (0.2-1.0); Calcium 8.9 mg/dl (8.6-10.3); Creatinine Clr Calc Pharmacy 73.8 ml/min; Est GFR (African American) 93.9 ml/min; Globulin 2.9 gm/dl (2.5-4.0); Magnesium 2.3 mg/dl (1.7-2.4); Potassium 4.2 mmol/L (3.5-5.1)
[2024-03-15] MEDS ORDERED: PHARMACY GLYCEMIC MGMT CONSULT PRN (07:28)
[2024-03-15 07:47] LABS: Estimated Average Glucose 301 mg/dl; Hemoglobin A1C 12.1 % (4.5-5.6)
[2024-03-15] MEDS: INSULIN ASPART PER UNIT CHARGE SC STA (08:05)
--- NOTE | 2024-03-15 08:44 | Pharmacy Report ---
Pharmacy Glycemic Short Note 2 - Date of Service March 15, 2024 - Glycemic Short BSG Results (Last 24 hours): 03/14/24 03/14/24 03/14/24 15:12 15:29 18:20 Glucose 314 H* POC Glucose 311 H* 276 H 03/14/24 03/14/24 03/15/24 21:03 21:58 06:06 Glucose 325 H* POC Glucose 231 H 229 H 03/15/24 07:52 Glucose POC Glucose 272 H OUTPATIENT ANTIDIABETIC REGIMEN: * metformin 500mg PO daily HbA1C: 12.1% ASSESSMENT: * Pt is a 78 year old female admitted with a UTI. History of DM2 on metformin only @ home. Pharmacy consulted to assist with inpatient glycemic management. * BSGs elevated the last 24h: [phone]/dL. Received 2 units of bolus insulin last night. * Ordered diet, receiving IV antibiotics. * Initiate basal/bolus insulin. Novolog moderate scale ACHS. Will begin basal insulin with Lantus given elevated fasting BSG and A1C of 12.1%. PLAN FOR INPATIENT GLYCEMIC CONTROL: * Hold outpatient oral diabetes medications * Basal insulin * Lantus 8 units SQ daily * Bolus insulin * NovoLog per scale ACHS or Q6hrs while NPO * Goal Range: Low 110 mg/dL - High 140 mg/dL * Correction Factor: 25 mg/dL/unit * Nutritional / Prandial insulin per carb ratio of 1 unit per 8 grams CHO consumed
[2024-03-15] MEDS: CHOLECALCIFEROL 25 MCG (1000 UNITS) TAB PO SCH (08:58)
[2024-03-15] MEDS: MULTIVITAMIN TAB PO SCH (08:58)
[2024-03-15] MEDS: ASPIRIN 81 MG ECTAB PO SCH (08:58)
[2024-03-15] MEDS: LOSARTAN POTASSIUM 50 MG TAB PO SCH (08:58)
[2024-03-15] MEDS: VERAPAMIL HCL 120 MG TABCR PO SCH (08:58)
[2024-03-15] MEDS ORDERED: LANTUS PER UNIT CHARGE SQ SCH (09:00)
[2024-03-15] MEDS: SPIRONOLACTONE 12.5 MG TAB PO SCH (09:01)
[2024-03-15] MEDS: FLUTICASONE/VILANTEROL 200/25MCG 14 PUFFS/INHALER INH SCH (09:01)
[2024-03-15] MEDS: LANTUS PER UNIT CHARGE SQ SCH (09:48)
[2024-03-15] MEDS: SODIUM CHLORIDE 0.65% NA SOLN 45 ML (OCEAN) PRN (11:03)
--- NOTE | 2024-03-15 16:50 | Hospitalist Progress Note ---
Date of Service March 15, 2024 Assessment & Plan (1) Acute UTI: (2) Acute hyperglycemia: (3) Acute dehydration: (4) Chronic diastolic CHF (congestive heart failure): (5) MASSIMO (obstructive sleep apnea): (6) SVT (supraventricular tachycardia): (7) DM type 2 (diabetes mellitus, type 2): Plan Ms. 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 #uncontrolled DMTII, A1C 12.1% No signs of DKA, reported recent polyuria/polydypsia -S/p glargine 5U this am with 10u aspart for gluose of 350s Better control in 150s this afternoon Glycemic pharmacy assisting conservation educator consulted -Recommendations discussed over TT: increase metformin 500 BID x 1 week, the 500/1000 x 1 week then 1000mg BID -Will ensure follow up to discuss G1P 1 #Uncomplicated UTI Urine culture GNB Continue CTX #Chronic HFpEF #Right Heart Failure -Home: Losartan 100mg, Spironolactone 12.5mg -Continue home regimen #Paroxysmal SVT/AVNRT -Continue flecainide 50mg BID -Continue verapamil 120mg daily -Continue Metoprolol XL 25 #ASCVD #Prior CEA -Continue ASA -Intolerant to statins, #Chronic hypoxic respiratory failure #MASSIMO -CPAP #Chronic Leukocytosis #MGUS Stable, follows Dr Muniz DVT scds 1-2 days Admission and Anticipated Discharge Date Admission Date: March 14, 2024 Subjective NAEO Reports feeling much better, denies nausea and vomiting or other acute concerns Physical Exam Constitutional: WD/WN, vitals as above Respiratory: normal respiratory effort, lungs clear to auscultation Cardiovascular: RRR, no murmur, no edema Gastrointestinal (Abdomen): normal bowel sounds, soft, nontender, no hepatosplenomegaly Results & Data Results & Data Vital Signs (Past 12 Hours) Vital Signs Temp Pulse Resp BP Pulse Ox O2 Del Method 03/15/24 14:40 36.8 C 82 16 122/74 95 Room Air 03/15/24 07:35 36.3 C L 77 16 146/88 H 94 Room Air Laboratory Results Short CBC 03/15/24 Range/Units 06:06 WBC 10.80 (4.8-10.8) K/ul Hgb 12.4 (12.0-16.0) g/dl Hct 39.4 (37.0-47.0) % Plt Count 298 (130-400) K/uL BMP 03/15/24 06:06 Sodium 137 Potassium 4.2 Chloride 102 Carbon Dioxide 28 BUN 17 Creatinine 0.71 Glucose 325 H* Calcium 8.9 Liver Function 03/15/24 Range/Units 06:06 Total Bilirubin 0.6 (0.2-1.0) mg/dl AST 15 (13-39) U/L ALT 16 (7-52) U/L Alkaline Phosphatase 119 H (34-104) U/L Albumin 4.1 (3.4-5.0) gm/dl Medications Administered Home Medications Medication Instructions Recorded Confirmed Last Taken aspirin 81 mg tablet,delayed 81 mg PO QAM 05/19/18 03/14/24 08/27/23 08:00 release (Andreas Low Dose Aspirin) cholecalciferol (vitamin D3) 25 1,000 unit PO QAM 05/19/18 03/14/24 08/25/23 mcg (1,000 unit) capsule (Vitamin D3) famotidine 20 mg tablet (Pepcid) 20 mg PO BID 05/19/18 03/14/24 08/27/23 08:00 multivitamin 1 tab PO QAM 05/19/18 03/14/24 3 Days Ago ~08/24/23 fluticasone furoate 200 1 inh inhalation QAM 11/18/18 03/14/24 08/27/23 08:00 mcg-vilanterol 25 mcg/dose inhalation powder (Breo Ellipta) albuterol sulfate 90 mcg/actuation 2 puff inhalation Q4H PRN 09/18/19 03/14/24 08/26/23 23:30 aerosol inhaler (ProAir HFA) Cough,SOB or Wheeze levalbuterol HCl 0.63 mg/3 mL 0.63 mg inhalation DIRECTED PRN 11/28/20 03/14/24 08/26/23 23:00 solution for nebulization (Xopenex) Shortness Of Breath Or Wheezing spironolactone 25 mg tablet 12.5 mg PO QAM 10/12/21 03/14/24 08/26/23 08:00 flecainide 50 mg tablet 50 mg PO Q12H 08/26/22 03/14/24 08/27/23 08:00 simethicone 180 mg capsule 180 mg PO BID PRN STOMACH PAIN 08/26/22 03/14/24 08/26/23 13:00 acetaminophen 500 mg tablet 1,000 mg PO Q6H PRN Pain (Scale 08/22/23 03/14/24 08/26/23 23:30 Score 1-3) furosemide 20 mg tablet 20 mg PO UD PRN leg swelling 08/22/23 03/14/24 08/23/23 guaifenesin 600 mg tablet, 600 mg PO Q12H PRN Cough 08/22/23 03/14/24 08/25/23 extended release 12 hr (Mucinex) levocetirizine 5 mg tablet (Xyzal) 5 mg PO HS 08/22/23 03/14/24 08/26/23 23:30 losartan 100 mg tablet 100 mg PO QAM 08/22/23 03/14/24 08/26/23 08:00 metformin 500 mg tablet,extended 500 mg PO QAM 08/22/23 03/14/24 08/25/23 release 24 hr verapamil 120 mg tablet 120 mg PO QAM 08/22/23 03/14/24 08/27/23 08:00 fexofenadine 180 mg tablet 180 mg PO HS 03/14/24 03/14/24 Unknown Active Medications Generic Name Dose Route Start Last Admin Trade Name Freq PRN Reason Stop Dose Admin Acetaminophen 1,000 mg 03/14/24 21:45 03/15/24 11:04 Acetaminophen 500 Mg Tab PO 04/13/24 21:44 1,000 mg Q6H PRN Administration Pain (Scale Score 1-3) Aspirin 81 mg 03/15/24 09:00 03/15/24 08:58 Aspirin 81 Mg Ectab PO 04/14/24 08:59 81 mg QAM GHASSAN Administration Enoxaparin Sodium 40 mg 03/14/24 22:00 03/15/24 11:06 Enoxaparin Inj 40 Mg/0.4 Ml Syr SQ 04/13/24 21:59 Not Given Q12 GHASSAN Famotidine 20 mg 03/14/24 21:45 03/15/24 08:58 Famotidine 20 Mg Tab PO 04/13/24 21:44 20 mg BID GHASSAN Administration Fexofenadine HCl 180 mg 03/14/24 21:45 03/14/24 23:46 Fexofenadine Hcl 180 Mg Tab PO 04/13/24 21:44 180 mg HS GHASSAN Administration Flecainide Acetate 50 mg 03/14/24 21:45 03/15/24 09:00 Flecainide Acetate 100 Mg Tablet PO 04/13/24 21:44 50 mg Q12 GHASSAN Administration Fluticasone/Vilanterol 1 puffs 03/15/24 09:00 03/15/24 09:01 Fluticasone/Vilanterol 200/25mcg 14 Puffs/Inhaler INH 04/14/24 08:59 1 puffs QAM GHASSAN Administration Ceftriaxone Sodium 2,000 mg in 50 mls @ 100 mls/hr 03/15/24 17:00 03/15/24 17:06 Rocephin IV 03/17/24 16:59 100 mls/hr Q24H GHASSAN Administration Insulin Aspart 0 units 03/14/24 21:00 03/15/24 12:50 Insulin Aspart Per Unit Charge SC 04/13/24 20:59 4 units ACHS GHASSAN Administration Insulin Glargine 8 units 03/15/24 09:00 03/15/24 09:48 Lantus Per Unit Charge SQ 04/14/24 08:59 8 units QAM GHASSAN Administration Losartan Potassium 100 mg 03/15/24 09:00 03/15/24 08:58 Losartan Potassium 50 Mg Tab PO 04/14/24 08:59 100 mg QAM GHASSAN Administration Multivitamins 1 tab 03/15/24 09:00 03/15/24 08:58 Multivitamin Tab PO 04/14/24 08:59 1 tab QAM GHASSAN Administration Sodium Chloride 2 sprays 03/14/24 21:45 03/15/24 11:03 Sodium Chloride 0.65% Na Soln 45 Ml ([place]) NA 04/13/24 21:44 2 sprays QID PRN Administration nasal dryness Spironolactone 12.5 mg 03/15/24 09:00 03/15/24 09:01 Spironolactone 12.5 Mg Tab PO 04/14/24 08:59 12.5 mg QAM GHASSAN Administration Verapamil HCl 120 mg 03/15/24 09:00 03/15/24 08:58 Verapamil Hcl 120 Mg Tabcr PO 04/14/24 08:59 120 mg QAM GHASSAN Administration Protocol Vitamin D 25 mcg 03/15/24 09:00 03/15/24 08:58 Cholecalciferol 25 Mcg (1000 Units) Tab PO 04/14/24 08:59 25 mcg QAM GHASSAN Administration
[2024-03-15] MEDS: cefTRIAXone SODIUM 2,000 MG/50 ML BAG IV SCH (17:06)
[2024-03-15] MEDS: SIMETHICONE 80 MG CHEW PO PRN (21:08)
--- NOTE | 2024-03-16 06:21 | Electrocardiogram Report ---
Test Reason : Blood Pressure : */* mmHG Vent. Rate : 106 BPM Atrial Rate : * BPM P-R Int : * ms QRS Dur : 74 ms QT Int : 356 ms P-R-T Axes : * 9 27 degrees QTcB Int : 472 ms Sinus rhythm with 1st degree A-V block Low voltage QRS Nonspecific ST abnormality Abnormal ECG When compared with ECG of 10-Jun-2023 10:54, No significant change was found Confirmed by Enmanuel Smith ([id number]) on 03/16/2024 6:21:01 AM Referred By: Confirmed By: Enmanuel Smith
--- NOTE | 2024-03-16 06:25 | Electrocardiogram Report ---
Test Reason : Blood Pressure : */* mmHG Vent. Rate : 87 BPM Atrial Rate : 87 BPM P-R Int : 290 ms QRS Dur : 68 ms QT Int : 372 ms P-R-T Axes : 47 -21 26 degrees QTcB Int : 447 ms Sinus rhythm with 1st degree A-V block Low voltage QRS Inferior infarct , age undetermined Cannot rule out Anterior infarct , age undetermined Abnormal ECG When compared with ECG of 14-Mar-2024 15:19, (unconfirmed) Inferior infarct is now Present Confirmed by Enmanuel Smith ([id number]) on 03/16/2024 6:24:36 AM Referred By: REFERRED SELF Confirmed By: Enmanuel Smith
[2024-03-16 07:37] LABS: Hematocrit (blood only) 37.2 % (37.0-47.0); Mean Corpuscular Hemoglobin 28.4 pg (25.0-34.0); Mean Corpuscular Hgb Conc 32.3 g/dL (32.0-36.0); Mean Corpuscular Volume 87.9 fL (80.0-100.0); Mean Platelet Volume 10.9 fL (9.4-12.4); Platelet Count 268 K/uL (130-400); RDW Coefficient of Variation 13.8 % (11.5-14.5); RDW Standard Deviation 44.6 fL (36.4-46.3); Red Blood Count 4.23 M/uL (4.20-5.40); White Blood Count 8.04 K/ul (4.8-10.8)
[2024-03-16 07:46] VITALS: BP 106/70; PULSE 77; RESP 16; TEMP 97.5; O2SAT 94
[2024-03-16 08:06] LABS: BUN Creatinine Ratio 24.7 (10-20); Calcium 8.9 mg/dl (8.6-10.3); Creatinine Clr Calc Pharmacy 71.7 ml/min; Est GFR (African American) 90.8 ml/min; Est GFR (Non-African American) 78.3 ml/min; Magnesium 2.1 mg/dl (1.7-2.4); Potassium 4.2 mmol/L (3.5-5.1)
[2024-03-16] MEDS: LANTUS PER UNIT CHARGE SQ SCH (08:49)
--- NOTE | 2024-03-16 10:40 | Discharge Summary ---
Discharge Summary Date of Service March 16, 2024 Principal Dx & Hospital Course #1 = Principal Diagnosis (1) Acute UTI: (2) Acute hyperglycemia: (3) Acute dehydration: (4) Chronic diastolic CHF (congestive heart failure): (5) MASSIMO (obstructive sleep apnea): (6) SVT (supraventricular tachycardia): (7) DM type 2 (diabetes mellitus, type 2): Plan Ms. 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 Patient reports eating as she pleases and "willful self-neglect." She reports appreciating the input from asthma educator but does not wish to start insulin. Discussed metformin uptitration and patient agreed. On day of discharge, UA showed klebsiella and patient transitioned to augmentin. Patient eating well and eager to get home. Follow up appointment made for Friday to closely monitor glucose and establish with MTM #uncontrolled DMTII, A1C 12.1% No signs of DKA, reported recent polyuria/polydypsia -S/p glargine 5U this am with 10u aspart for gluose of 350s Better control in 150s this afternoon Glycemic pharmacy assisting software educator consulted -Recommendations discussed over TT: increase metformin 500 BID x 1 week, the 500/1000 x 1 week then 1000mg BID -Will ensure follow up to discuss G1P 1 #Uncomplicated UTI Urine culture GNB trnasition to Augmentin #Chronic HFpEF #Right Heart Failure -Home: Losartan 100mg, Spironolactone 12.5mg -Continue home regimen #Paroxysmal SVT/AVNRT -Continue flecainide 50mg BID -Continue verapamil 120mg daily -Continue Metoprolol XL 25 #ASCVD #Prior CEA -Continue ASA -Intolerant to statins, #Chronic hypoxic respiratory failure #MASSIMO -CPAP #Chronic Leukocytosis #MGUS Stable, follows Dr Muniz Notes For Next Care Provider Medication Changes From Visit Metformin to increase metformin 500 BID x 1 week, the 500/1000 x 1 week then 1000mg BID Declined insulin Admission HPI Per Admitting Provider This is a 78-year-old female who has a significant past medical history of T2DM with polyneuropathy, HTN, HLD, history of SVT, COPD, bronchiectasis, MASSIMO on CPAP, chronic diastolic dysfunction, GERD, osteoporosis, hidradenitis suppurativa, MUGA's, depression, carotid stenosis status post endarterectomy who presents to ED secondary to hyperglycemia. She reports not checking her BSG for some time now and when she checked it yesterday 372. She reports polydipsia, Polyuria, increased urinary incontinence which has been present ever since her colovesicular fistula surgery in October and generally feeling unwell. She denies any dysuria, hematuria, fever, chills, sweats, lightheadedness, dizziness, chest pain, shortness breath at rest, nausea, vomiting or abdominal pain. She does report that she recently got her COVID-vaccine 2 weeks ago and a flu vaccine 3 days ago. She reports that over the years her A1c has been steadily climbing and she thinks her last A1c was 8.0. Admission Exam Per Admitting Provider PHYSICAL EXAM: GENERAL: Patient is in no acute distress. HEENT: No acute trauma, normocephalic atraumatic, mucous membranes dry, no nasal congestion. NECK: No stridor, no adenopathy, no meningismus, trachea is midline. LUNGS: Clear to auscultation bilaterally, no wheeze, no rhonchi, breath sounds equal. HEART: Mildly tachycardic, no murmur, regular rhythm. ABDOMEN: Soft, nontender, no peritonitis. EXTREMITIES: No cyanosis, full range of motion of all the joints without pain or difficulty. Mild bilateral pedal edema. NEUROLOGIC: Oriented x 3, no acute motor or sensory deficits, no focal weakness. SKIN: No jaundice, no diaphoresis. Discharge Exam Constitutional WD/WN, vitals as above Respiratory normal respiratory effort, lungs clear to auscultation Cardiovascular RRR, no murmur, no edema Gastrointestinal (Abdomen) normal bowel sounds, soft, nontender, no hepatosplenomegaly Updated Medication List Medication Instructions Recorded Confirmed Type aspirin 81 mg tablet,delayed 81 mg PO QAM 05/19/18 03/14/24 History release (Andreas Low Dose Aspirin) cholecalciferol (vitamin D3) 25 1,000 unit PO QAM 05/19/18 03/14/24 History mcg (1,000 unit) capsule (Vitamin D3) famotidine 20 mg tablet (Pepcid) 20 mg PO BID 05/19/18 03/14/24 History multivitamin 1 tab PO QAM 05/19/18 03/14/24 History fluticasone furoate 200 1 inh inhalation QAM 11/18/18 03/14/24 History mcg-vilanterol 25 mcg/dose inhalation powder (Breo Ellipta) albuterol sulfate 90 mcg/actuation 2 puff inhalation Q4H PRN 09/18/19 03/14/24 History aerosol inhaler (ProAir HFA) Cough,SOB or Wheeze levalbuterol HCl 0.63 mg/3 mL 0.63 mg inhalation DIRECTED PRN 11/28/20 03/14/24 History solution for nebulization (Xopenex) Shortness Of Breath Or Wheezing spironolactone 25 mg tablet 12.5 mg PO QAM 10/12/21 03/14/24 History flecainide 50 mg tablet 50 mg PO Q12H 08/26/22 03/14/24 History simethicone 180 mg capsule 180 mg PO BID PRN STOMACH PAIN 08/26/22 03/14/24 History acetaminophen 500 mg tablet 1,000 mg PO Q6H PRN Pain (Scale 08/22/23 03/14/24 History Score 1-3) furosemide 20 mg tablet 20 mg PO UD PRN leg swelling 08/22/23 03/14/24 History guaifenesin 600 mg tablet, 600 mg PO Q12H PRN Cough 08/22/23 03/14/24 History extended release 12 hr (Mucinex) levocetirizine 5 mg tablet (Xyzal) 5 mg PO HS 08/22/23 03/14/24 History losartan 100 mg tablet 100 mg PO QAM 08/22/23 03/14/24 History verapamil 120 mg tablet 120 mg PO QAM 08/22/23 03/14/24 History fexofenadine 180 mg tablet 180 mg PO HS 03/14/24 03/14/24 History amoxicillin 875 mg-potassium 1 tab PO Q12H #10 tabs 03/16/24 Rx clavulanate 125 mg tablet metformin 500 mg tablet,extended See Rx Instructions .Route 03/16/24 Rx release 24 hr .COMPLEX #120 tabs Hospital Stay Data Consultations 03/14/24 18:33 ED Decision to Admit Stat Diagnostic Imagining Performed 03/14/24 19:40 US venous doppler LE LT Stat Pending Results Patient Have Any Pending Studies at Discharge: No Discharge Instructions Given to Patient (Per Discharging Provider) You were admitted for management of uncontrolled hyperglycemia and urinary tract infection. Your A1C is 12.1% You discussed lifestyle modifications with the Radiation Protection Specialist and wished to defer insulin. You will start Metformin 500mg two times a day for a week, then 500mg in am/1000mg in pm for 1 week, then transition to 1000mg two times a day thereafter. An appointment with an outpatient physician was made for you to discuss any further adjustments and referral to Diabetes Management as an outpatient. please continue Augmentin 1 tablet two times a day until course complete. Your first dose will be this evening. Total Time Total Time Spent Total Time Spent (In Minutes): 45
--- OUTSIDE RECORDS SUMMARY | 2024-03-16 15:01 | External Medical Summary | Summary of Care ---
Author Name Unknown Organization [facility] Address [address] [place] [address] Phone [phone] Care Team Providers Care Marine Electrician Helper Name Role Phone Andrae Hays MD Primary Care Provider + Encounter Details Date Type Department Care Team (Late st Contact Info) Description 03/15/2024 Orders Only PATIENT PORTAL DO NOT DELETE THIS DEPT USED BY SUNG BRENNER [id number] Allergies Active Allergy Reactions Criticality Noted Date [...] as of this encounter (statuses as of 03/15/2024) Medications Medication Sig Dispensed Refills Start Date [...] goal of less than 7.0% ([facility]) Use as directed. Dx E11.9 [...] GASIndications:Chronic respiratory failure with hypoxia ([facility]) 1 LPM via nasal cannula with ambulation 1 Each 07/23/2022 Active Hydrocortisone (Perianal) 2.5 % External Cream (Anusol-HC)Indications :Hemorrhoids, unspecified hemorrhoid type Administer into the rectum 2 times a day. 28 g 3 10/12/2022 Active Fluticasone Furoate-Vilanterol 200-25 MCG/ACT Inhalation Aerosol Powder Breath Activated (BREO ellipta)Indications:CO PD, group B, by GOLD 2017 classification ([facility]) USE 1 INHALATION BY MOUTH DAILY 180 Each 3 06/02/2023 Active metFORMIN HCl ER 500 MG Oral Tablet Extended Release 24 Hour (Glucophage XR)Indications:Type 2 diabetes mellitus with hemoglobin A1c goal of less than 7.0% ([facility]) Take 1 Tablet by mouth in the morning. 90 Tablet 3 06/05/2023 Active Verapamil HCl ER 120 MG Oral Tablet Extended Release (Isoptin SR)Indications:Paroxys mal SVT (supraventricular tachycardia) ([facility]),AVNRT (AV carleen re-entry tachycardia) ([facility]),HTN, goal below 140/90 Take 1 [...] as of this encounter (statuses as of 03/15/2024) Active Problems Problem Noted Date Diagnosed Date [...] 03/28/2010 Overview: left Dr Doherty, [facility] Type 2 diabetes mellitus wit h hemoglobin A1c goal of less than 7.0% 06/07/2009 Overview: ICD-10 update of inactive term Vitamin D deficiency 05/25/2009 Primary localized osteoarthrosis, lower leg 03/01 Osteoporosis 07/14/2002 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 Overview: [place] 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 Irritable bowel syndrome Chronic sinusitis MASSIMO on CPAP Overview: CPAP 7 cwp 3 LPM AHP documented as of this encounter (statuses as of 03/15/2024) Resolved Problems Problem Noted Date Diagnosed Date [...] as of this encounter (statuses as of 03/15/2024) Immunizations Name Administration Dates Next Due COVID-19 mRNA, LNP-s, No Pre serve, 2-Dose Series ([facility]) 02/23/2021,08/26/2020,08/05/2020 COVID-19, LNP-s, No Preserve , Jasbir-sucrose, Ages 12+ (Pfizer) 09/26/2021 COVID-19, MRNA-LNP, 23-24, P F, 30 MCG/0.3 mL, 12 YRS AND ABOVE, IM ([facility]) 03/22/2023 Covid-19, Mrna, Lnp-s, Pf, B ivalent, [...] Tobacco: Former Cigarettes 30 1 986 - 2015 Smokeless Tobacco: Never Alcohol Use Standard [...] No 12/23/2023 Does the household have a [facility] source of income? (Household - for ages [...] 03/15/2024 11:00 AM EDT Office Visit Cardiology, [facility] [address] [place] [address] Macario Liu MD [address] [place] [address] 03/24/2024 2:00 PM EDT Imaging Vascular Lab, [facility] 2nd [facility] [address] [place] [address] 04/19/2024 11:45 AM EDT Office Visit Ophthalmology, [facility] [address] [address] Junior Mcnamara, [address] [place] [address] 04/29/2024 3:35 PM EDT Office Visit Urogynecology [facility] [address] [place] [address] Neel James MD [address] [place] [address] Nurse Dick Whitfields [address] [place] [address] 05/06/2024 12:00 PM EST Office Visit Pulmonary Medicine, [facility] [address] [facility] [place] [address] Vitaly Angel MD [address] [place] [place] [address] 07/12/2024 10:00 AM EST Imaging Vascular Lab, [facility] 2nd Floor, [place] [address] [facility] [place] [address] 07/12/2024 11:20 AM EST Office Visit General Internal Medicine [facility] [address] [facility] [place] [address] Mindi Nesbitt PA-C [address] [facility] [place] [address] 07/16/2024 3:00 PM EST [facility]medicine [facility] [address] [place] [address] Micha Piedra CRNP [address] [place] [address] 11/12/2024 11:00 AM EDT Telemedicine Sleep Disorders Ctr [facility] 132 [facility] [place] [phone] Idania Garner CRNP 132 [facility] [place] [address] Scheduled Procedures Name Priority Associated Diagnoses Date/Ti [...] D LEVEL ONCE IN A LIFETIME-USE SMARTSET# 23803 Completed 05/17/2023, 05/27/2022, 01/18/2021, Additional history exists [...] this encounter Medical Devices Implanted Type Area Customer Experience Analyst Device Identifier Shelf Expiration Date Model / Serial / Lot Lens 10.5 Sn60wf - [id number] Implanted:Qty: 1 on 04/27/2014 at OR [facility] Left: Eye [employer] 02/27/2019 SN60WF.105 / [id number] / Lens 12.5 Sn60wf - [id number] Implanted:Qty: 1 on 05/11/2014 at OR [facility] Right: Eye [employer] 02/27/2019 SN60WF.125 / [id number] / documented as of this encounter Advance [...] and were consensually agreed upon. Care Teams Marine Electrician Helper Relationship Specialty Start Date End Date Andrae Hays MD [address] [facility] [place] [address] PCP - General Internal Medicine 04/10/16 documented as of this encounter
--- OUTSIDE RECORDS SUMMARY | 2024-03-16 15:01 | External Medical Summary | Summary of Care ---
Author Name Unknown Organization [facility] Address [address] [place] [address] Phone [phone] Care Team Providers Care Decoration Checker Name Role Phone Andrae Hays MD Primary Care Provider + Reason for Visit * Reason Onset Date Comments Durable Medical Equipment 03/15/2024 CPAP s upplies and adjustment Encounter Details Date Type Department Care Team (Late st Contact Info) Description 03/15/2024 Telephone Sleep Disorders C[facility] [place] [phone] Idania [facility] CR[facility] [address] Durable Medical Equipment (CPAP supplies a... Allergies Active Allergy Reactions Criticality Noted Date [...] goal of less than 7.0% ([facility]) Use as directed. Dx E11.9 1 Kit [...] B, by GOLD 2017 classification ([facility]) USE 1 INHALATION BY MOUTH DAILY 180 Each 3 06/02/2023 Active metFORMIN HCl ER 500 MG Oral Tablet Extended Release 24 Hour (Glucophage XR)Indications:Type 2 diabetes mellitus with hemoglobin A1c goal of less than 7.0% ([facility]) Take 1 Tablet by mouth in the morning. 90 Tablet 3 06/05/2023 Active Verapamil HCl ER 120 MG Oral Tablet Extended Release (Isoptin SR)Indications:Paroxys mal SVT (supraventricular tachycardia) ([facility]),AVNRT (AV carleen re-entry tachycardia) (H[facility]),HTN, goal below [...] status 03/28/2010 Overview: left Dr Doherty, [facility] Type 2 diabetes mellitus wit h hemoglobin A1c goal of less than 7.0% 06/07/2009 Overview: ICD-10 update of inactive term Vitamin D deficiency 05/25/2009 Primary localized osteoarthrosis, lower leg 03/01 Osteoporosis 07/14/2002 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 Overview: [place] IgG monoclonol spike monoclonal gammopathy of undetermined [...] mRNA, LNP-s, No Pre serve, 2-Dose Series ([employer]) 02/23/2021,08/26/2020,08/05/2020 COVID-19, LNP-s, No Preserve , Jasbir-sucrose, Ages 12+ (Pfizer) 09/26/2021 COVID-19, MRNA-LNP, 23-24, P F, 30 MCG/0.3 mL, 12 YRS AND ABOVE, IM ([facility]) 03/22/2023 Covid-19, Mrna, Lnp-s, Pf, B ivalent, [...] encounter Miscellaneous Notes * Telephone Encounter - Billie Monson OSA - 03/15/2024 8:47 AM EDT DME order for CPAP supplies and pressure change submitted to [employer]. documented in this encounter Plan of Treatment Upcoming Encounters Date Type Department Care Team (Late st Contact Info) Description 03/24/2024 2:00 PM EDT Imaging Vascular Lab, [facility] 2nd Floor, [place] [facility] [place] [address] 04/19/2024 11:45 AM EDT Office Visit Ophthalmology, [facility] [place] [address] Junior Mcnamara, DO [address] [facility] [place] [address] 04/29/2024 3:35 PM EDT Office Visit Urogynecology [facility] 132 [place] [address] Neel James MD [address] [place] [address] [facility] 132 [place] [address] 05/05/2024 3:30 PM EST Office Visit Cardiology, [address] [place] [address] Macario Liu MD 132 [place] [address] 05/06/2024 12:00 PM EST Office Visit Pulmonary Medicine, [address] [place] [address] Vitaly Angel MD [facility] [place] [address] 07/12/2024 10:00 AM EST Imaging [facility]ascular Lab, [facility] 132 [place] [address] 07/12/2024 11:20 AM EST Office Visit General Internal Medicine [facility] [address] [facility] [place] [address] Mindi Nesbitt PA-C [address] [facility] [place] [address] 07/16/2024 3:00 PM EST Telemedicine Vascular Surg [facility] [address] [place] [address] Micha Piedra CRNP [address] [place], [place] [id number] 11/12/2024 11:00 AM EDT Telemedicine Sleep Disorders Ctr [address] [place] [phone] Idania Garner CRNP [address] [place] [address] Scheduled Procedures Name Priority Associated Diagnoses Date/Ti [...] D LEVEL ONCE IN A LIFETIME-USE SMARTSET# 33680 Completed 05/17/2023, 05/27/2022, 01/18/2021, Additional history exists [...] this encounter Medical Devices Implanted Type Area Claims Support Specialist Device Identifier Shelf Expiration Date Model / Serial / Lot Lens 10.5 Sn60wf - [id number] Implanted:Qty: 1 on 04/27/2014 at OR [facility] Left: Eye [employer] 02/27/2019 SN60WF.105 / [id number] / Lens 12.5 Sn60wf - [id number] Implanted:Qty: 1 on 05/11/2014 at OR [facility] Right: Eye [employer] 02/27/2019 SN60WF.125 / [id number] / documented as of this encounter Advance [...] and were consensually agreed upon. Care Teams Decoration Checker Relationship Specialty Start Date End Date Andrae Hays MD [address] [place] [address] PCP - General Internal Medicine 04/10/16 documented as of this encounter
== END 2024-03-16 11:45 | disposition home or self-care (01) ==
LOC: 3N 15:01 → ED 15:01 → SUATTDRO 19:36 → 3N 21:26

== ENCOUNTER 2025-06-20 03:05 | Inpatient (IN) ==
[2025-06-20 03:26] VITALS: TEMP 97.7
[2025-06-20 03:28] LABS: Hematocrit (blood only) 38.3 % (37.0-47.0); Hemoglobin 12.4 g/dL (12.0-16.0); Immature Granulocytes # (auto) 0.03 K/uL (0.01-0.20); Immature Granulocytes % (auto) 0.3 %; Mean Corpuscular Hemoglobin 29.3 pg (25.0-34.0); Mean Corpuscular Volume 90.5 fL (80.0-100.0); Platelet Count 275 K/uL (130-400); RDW Standard Deviation 42.0 fL (36.4-46.3); Red Blood Count 4.23 M/uL (4.20-5.40); White Blood Count 9.67 K/ul (4.8-10.8)
[2025-06-20] MEDS: SODIUM CHLORIDE 0.9% 1,000 ML IV ONE (03:34)
[2025-06-20 03:50] LABS: Alanine Aminotransferase 15 U/L (7-52); Albumin Globulin Ratio 1.4 (0.9-2); Albumin Level 4.0 gm/dl (3.4-5.0); Alkaline Phosphatase 83 U/L (34-104); Anion Gap 9 (3-11); Bilirubin,Total 0.4 mg/dl (0.2-1.0); Blood Urea Nitrogen 32 mg/dl (6-23); Calcium 9.4 mg/dl (8.6-10.3); Carbon Dioxide 22 mmol/L (21-32); Chloride 110 mmol/L (98-107); Globulin 2.9 gm/dl (2.5-4.0); Glucose 154 mg/dl (70-99(Fasting)); Lipase 14 U/L (11-82); Magnesium 2.0 mg/dl (1.7-2.4); Potassium 3.5 mmol/L (3.5-5.1); Sodium 141 mmol/L (136-145); Total Protein 6.9 gm/dl (6.0-8.3)
--- NOTE | 2025-06-20 04:59 | XRay Report ---
EXAM: XR chest 1V portable CLINICAL HISTORY: Chest pain, nonspecific TECHNIQUE: An X-ray image of the chest is obtained in AP projection. COMPARISON: prior chest x-ray dated 06/20/2023. FINDINGS: Pulmonary Parenchyma: The previously noted right subclavian PICC line could not be visualized at this time examination. Mild bibasilar atelectasis. No evidence of consolidation, collapse, or focal opacities. No pulmonary nodules are identified. No evidence of pleural effusion or pleural thickening on the right. There is blunting of the left costophrenic angle, likely denoting mild effusion. Heart and Mediastinum: Cardiac silhouette appears mildly enlarged. No mediastinal widening or masses. No hilar or mediastinal lymphadenopathy. Bony Thorax: Bony thorax appears intact without fractures or deformities. Soft Tissues: Soft tissues overlying the chest wall are unremarkable. External cardiac monitoring leads project over the chest. IMPRESSION: 1. The previously noted right subclavian PICC line could not be visualized at this time of examination. 2. Mild bibasilar atelectasis. Stable. 3. Blunting of the left costophrenic angle, likely denoting mild effusion. Interval regression noted. 4. Mild apparent cardiomegaly. Stable. 5. No acute cardiopulmonary abnormalities are identified. Electronically signed by Rob Robert 06-20-2025 04:58 AM
--- NOTE | 2025-06-20 06:38 | Emergency Department Note ---
History of Present Illness General Chief complaint: Tachycardia Stated complaint: TACHYCARDIA Time Seen by Provider: 06/20/25 03:08 History of Present Illness This is an 80-year-old female presenting to the emergency department via EMS from home for evaluation of elevated heart rate. Patient awoke on the morning of 06/19/2025 with a heart rate in the 140s. She had some dizziness with exertion while this was occurring. She does have a previous history of SVT with ablation. Patient has had some recent medication changes, and switched from verapamil to Cardizem 6 days ago. She has otherwise been tolerating medication well. Patient does not report fevers or chills. No nausea or vomiting. Discomfort is rated 7/10. Home Medications Medication Instructions Recorded Confirmed Type albuterol sulfate 90 mcg/actuation 2 inh inhalation Q4H PRN Shortness 06/20/25 06/20/25 History aerosol inhaler Of Breath Or Wheezing aspirin 81 mg tablet,delayed 81 mg PO DAILY 06/20/25 06/20/25 History release ezetimibe 10 mg tablet 10 mg PO DAILY 06/20/25 06/20/25 History famotidine 20 mg tablet 20 mg PO DAILY 06/20/25 06/20/25 History flecainide 50 mg tablet 50 mg PO BID #60 tabs 06/20/25 Rx fluticasone furoate 200 1 inh inhalation DAILY 06/20/25 06/20/25 History mcg-vilanterol 25 mcg/dose inhalation powder (Breo Ellipta) losartan 100 mg tablet 100 mg PO DAILY 06/20/25 06/20/25 History metformin 500 mg tablet,extended 500 mg PO DAILY 06/20/25 06/20/25 History release 24 hr spironolactone 25 mg tablet 12.5 mg PO DAILY 06/20/25 06/20/25 History tirzepatide 10 mg/0.5 mL 10 mg subcut WK 06/20/25 06/20/25 History subcutaneous pen injector (Mounjaro) verapamil 120 mg tablet,extended 120 mg PO QAM 30 days #30 tabs 06/20/25 Rx release Allergies Allergy/AdvReac Type Severity Reaction Status Date / Time CAMMIE Inhibitors Allergy Intermediate COUGH Verified 08/27/23 11:50 cefaclor Allergy Intermediate HIVES Verified 08/27/23 11:50 erythromycin base Allergy Intermediate HIVES Verified 08/27/23 11:50 hyoscyamine Allergy Intermediate HALLUCINATI Verified 08/27/23 11:50 ONS ipratropium Allergy Intermediate "lungs get Verified 08/27/23 11:50 itchy" listed in [facility] EMR saccharin Allergy Intermediate WHEEZING Verified 08/27/23 11:50 Sulfa (Sulfonamide Allergy Intermediate HIVES Verified 08/27/23 11:50 Antibiotics) sulfite Allergy Intermediate WHEEZING Verified 08/27/23 11:50 etodolac AdvReac Intermediate STOMACH Verified 08/27/23 11:50 PAIN levofloxacin AdvReac Intermediate BRAIN FOG Verified 08/27/23 11:50 AND SPACEY sorbitol AdvReac Intermediate STOMACH Verified 08/27/23 11:50 PAIN Past Med/Surg History Problem List Tachyarrhythmia (Acute) Weakness (Acute) Real time reverse transcriptase PCR positive for 2019 novel coronavirus (Acute) Fistula (Acute) Leukocytosis (Acute) Acute UTI (Acute) Diverticulitis (Acute) Lower abdominal pain (Acute) Diverticulitis of large intestine with complication Chronic diastolic CHF (congestive heart failure) MASSIMO (obstructive sleep apnea) SVT (supraventricular tachycardia) (Acute) Encounter for pre-operative examination Pulmonary nodules COPD exacerbation Elevated troponin SVT (supraventricular tachycardia) (Acute) DVT prophylaxis Tachyarrhythmia Asthma, moderate persistent (Chronic) rescue inhaler H/O thyroid nodule (Acute) History of hysterectomy (Chronic) History of cataract surgery (Chronic) RT/LEFT Anxiety (Chronic) Depression (Chronic) Diastolic dysfunction (Chronic) Hypertension (Chronic) Hyperlipidemia (Chronic) DM type 2 (diabetes mellitus, type 2) (Chronic) NIDDM Carotid stenosis (Chronic) s/p left carotid endarterectomy 2016, Osteoarthritis (Chronic) IBS (irritable bowel syndrome) (Chronic) Nocturnal hypoxia (Chronic) Obstructive sleep apnea on CPAP (Chronic) CPAP & O2 3L Chronic sinusitis (Chronic) COPD, moderate (Chronic) GERD (gastroesophageal reflux disease) (Chronic) MGUS (monoclonal gammopathy of unknown significance) (Chronic) H/O sinus surgery (Chronic) x2 - 05/09/11 - MAC #3, ETT #7.0 S/P total knee arthroplasty (Chronic) "left" S/P section (Chronic) X 2 S/P cholecystectomy (Chronic) S/P tonsillectomy and adenoidectomy (Chronic) S/P carotid endarterectomy (Chronic) "left, 09/2015" Medical History Acute dehydration Acute hyperglycemia Leukocytosis Acute UTI Bronchiectasis Colonic fistula History of COVID-19 07/26/23, home test, residual cough Asthma nebulizer History of diverticulitis On home oxygen therapy O2 1L with exertion & 3L hs with CPAP Degenerative disc disease SVT (supraventricular tachycardia) hx cardiac ablation, Dr. Liu Surgical History Hx of cardiac catheterization no blockages Hx of total hysterectomy with removal of both tubes and ovaries Hx of bilateral cataract extraction History of anesthesia reaction pulse ox drops with any anesthesia History of arthroscopy of left knee History of cardiac radiofrequency ablation (RFA) x2, last 2019 History of dilatation and curettage History of esophagogastroduodenoscopy (EGD) History of colonoscopy H/O exploratory laparotomy History of tooth extraction Family History Mother Pancreatic cancer Father Prostate cancer Brother Family history of diabetes mellitus Other No family history of adverse response to anesthesia Social History Smoking Status: Former smoker Tobacco Type: Cigarettes Cigarettes Per Day: 1 ppd; Second Hand Exposure: No; Do You Dip or Chew Tobacco: No; Hx Alcohol Use: No Hx Substance Use: No Preferred Language: Slovak Communication Ability: Effective Visual Impairment: No Limitations Hearing Ability: Normal Swing Saw Operator Required: No Beliefs That Will Affect Care: None marital status: Current Living Situation: Alone current occupational status: retired Feels Safe at Home: Yes Assistive Devices: Cane, CPAP and Walker Review of Systems A total of 10 systems reviewed and were otherwise negative Physical Exam Vital Signs Vital Signs - 24 hr 06/20/25 03:12 06/20/25 03:21 06/20/25 03:28 Temperature 36.5 C Temperature Source Oral Pulse Rate 131 H 112 H Pulse Rate [Apical] Pulse Rhythm Regular Pulse Rhythm [Apical] Pulse Strength Normal Pulse Strength [Apical] Respiratory Rate 24 Respiratory Effort / Characteristics Non-Labored Spontaneous Respiratory Depth Normal Respiratory Pattern Regular Blood Pressure 114/75 Blood Pressure [Right Arm] Blood Pressure Mean 88 Blood Pressure Mean [Right Arm] Blood Pressure Position Lying Blood Pressure Position [Right Arm] Pulse Oximetry 93 94 Oxygen Delivery Method Room Air Room Air Sepsis Recent Fever Within 48 Hours No Sepsis New/Unexplained Change in Mental Status No Sepsis Action Taken by Nursing No Action Required 06/20/25 03:28 06/20/25 05:02 06/20/25 06:32 Temperature Temperature Source Pulse Rate 117 H 127 H Pulse Rate [Apical] 103 H Pulse Rhythm Pulse Rhythm [Apical] Regular Pulse Strength Pulse Strength [Apical] Normal Respiratory Rate 22 16 Respiratory Effort / Characteristics Non-Labored Spontaneous Respiratory Depth Normal Respiratory Pattern Regular Blood Pressure Blood Pressure [Right Arm] 91/66 L Blood Pressure Mean Blood Pressure Mean [Right Arm] 74 Blood Pressure Position Blood Pressure Position [Right Arm] Lying Pulse Oximetry 94 96 Oxygen Delivery Method Room Air Room Air Sepsis Recent Fever Within 48 Hours Sepsis New/Unexplained Change in Mental Status Sepsis Action Taken by Nursing VITALS: Vitals are noted on the nurse's note and reviewed by myself. Vital signs with persistent tachycardia GENERAL: White female who is resting comfortably but does cooperative on exam HEAD: Normocephalic atraumatic. NECK: Supple without nuchal rigidity. No lymphadenopathy. No thyromegaly. Cervical spine is nontender. HEART: Tachycardic rate LUNGS: Clear to auscultation bilaterally without wheezes, rales or rhonchi. No retractions or accessory muscle use. ABDOMEN: Positive normal bowel sounds x 4. Soft, nontender, without masses or organomegaly. No guarding or rebound tenderness. MUSCULOSKELETAL: No muscle atrophy, erythema, or edema noted. Full range of motion in all extremities. NEURO: Patient was alert and oriented to person place and time. CN II through XII grossly intact. Course Administered Medications Aspirin (Aspirin 81 Mg Ectab) 81 mg PO DAILY [facility] Stop: 07/20/25 08:59 Last Admin: 06/20/25 11:27 Dose: 81 mg Documented By: RAEGAN Ezetimibe (Ezetimibe 10 Mg Tab) 10 mg PO DAILY [facility] Stop: 07/20/25 08:59 Last Admin: 06/20/25 11:27 Dose: 10 mg Documented By: RAEGAN Enoxaparin Sodium (Enoxaparin Inj 40 Mg/0.4 Ml Syr) 40 mg SQ DAILY [facility] Stop: 07/20/25 09:59 Last Admin: 06/20/25 11:37 Dose: 40 mg Documented By: RAEGAN Famotidine (Famotidine 20 Mg Tab) 20 mg PO DAILY [facility] Stop: 07/20/25 08:59 Last Admin: 06/20/25 11:37 Dose: 20 mg Documented By: RAEGAN Fluticasone/Vilanterol (Fluticasone/Vilanterol 200/25mcg 14 Puffs/Inhaler) 1 puffs INH DAILY [facility] Stop: 07/20/25 08:59 Last Admin: 06/20/25 11:28 Dose: 1 puffs Documented By: RAEGAN Insulin Aspart (Insulin Aspart Per Unit Charge) 0 units SC Q6H [facility] Stop: 07/20/25 08:25 Last Admin: 06/20/25 09:42 Dose: Not Given Documented By: RAEGAN Co-signed By: ZACKERY Losartan Potassium (Losartan Potassium 50 Mg Tab) 100 mg PO DAILY [facility] Stop: 07/20/25 08:59 Last Admin: 06/20/25 11:28 Dose: 100 mg Documented By: RAEGAN Spironolactone (Spironolactone 12.5 Mg Tab) 12.5 mg PO DAILY [facility] Stop: 07/20/25 08:59 Last Admin: 06/20/25 11:27 Dose: 12.5 mg Documented By: RAEGAN Verapamil HCl (Verapamil Hcl 120 Mg Tabcr) 120 mg PO QAM [facility] Stop: 07/20/25 07:04 Last Admin: 06/20/25 09:04 Dose: 120 mg Documented By: RAEGAN Discontinued Medications Flecainide Acetate (Flecainide Acetate 100 Mg Tablet) 50 mg PO DAILY [facility] Stop: 07/20/25 08:59 Last Admin: 06/20/25 11:28 Dose: 50 mg Documented By: RAEGAN Sodium Chloride (Nss) 1,000 mls @ 999 mls/hr IV .Q1H1M ONE Stop: 06/20/25 04:31 Last Infusion: 06/20/25 05:04 Dose: Infused Documented By: bonnie Admin: 06/20/25 03:34 Dose: 999 mls/hr Documented By: bonnie Miscellaneous (Patient's Height &/Or Weight Needed) 1 each N/A ONE STA Stop: 06/20/25 08:37 Last Admin: 06/20/25 09:50 Dose: 1 each Documented By: RAEGAN Medical Decision Making Differential Diagnosis Differential diagnosis includes, but is not limited to: Myocardial infarction, dysrhythmia, pericarditis, pneumothorax, aortic aneurysm/dissection, DVT/PE, anxiety, GERD, PUD, electrolyte imbalance, thyroid disorder, pneumonia, bronchitis, pancreatitis, and others Laboratory Data 06/20/25 03:20 06/20/25 03:08 Lab Results 06/20/25 06/20/25 Range/Units 03:08 03:20 WBC 9.67 (4.8-10.8) K/ul RBC 4.23 (4.20-5.40) M/uL Hgb 12.4 (12.0-16.0) g/dL Hct 38.3 (37.0-47.0) % MCV 90.5 (80.0-100.0) fL MCH 29.3 (25.0-34.0) pg MCHC 32.4 (32.0-36.0) g/dL RDW Std Deviation 42.0 (36.4-46.3) fL RDW Coeff of Tasha 12.8 (11.5-14.5) % Plt Count 275 (130-400) K/uL MPV 9.6 (9.4-12.4) fL Immature Gran % (Auto) 0.3 % Neut % (Auto) 74.7 % Lymph % (Auto) 17.4 % Davie % (Auto) 5.6 % Eos % (Auto) 1.1 % Baso % (Auto) 0.9 % Neut # (Auto) 7.22 H (1.40-6.50) K/uL Lymph # (Auto) 1.68 (1.20-3.40) K/uL Davie # (Auto) 0.54 (0.11-0.59) K/uL Eos # (Auto) 0.11 (0.00-0.50) K/uL Baso # (Auto) 0.09 (0.00-0.20) K/uL Immature Gran # (Auto) 0.03 (0.01-0.20) K/uL Sodium 141 (136-145) mmol/L Potassium 3.5 (3.5-5.1) mmol/L Chloride 110 H (98-107) mmol/L Carbon Dioxide 22 (21-32) mmol/L Anion Gap 9 (3-11) BUN 32 H (6-23) mg/dl Creatinine 0.66 (0.6-1.2) mg/dl Est Cr Clr Drug Dosing Not Reportable eGFR 88.07 BUN/Creatinine Ratio 48.5 H (10-20) Glucose 154 H (70-99(Fasting)) mg/dl Calcium 9.4 (8.6-10.3) mg/dl Magnesium 2.0 (1.7-2.4) mg/dl Total Bilirubin 0.4 (0.2-1.0) mg/dl AST 13 (13-39) U/L ALT 15 (7-52) U/L Alkaline Phosphatase 83 (34-104) U/L Troponin I High Sens 8.1 (0-14) pg/ml B-Natriuretic Peptide 250 H (0-100) pg/ml Total Protein 6.9 (6.0-8.3) gm/dl Albumin 4.0 (3.4-5.0) gm/dl Globulin 2.9 (2.5-4.0) gm/dl Albumin/Globulin Ratio 1.4 (0.9-2) Lipase 14 (11-82) U/L Imaging Data Radiologist's Impression: Chest X-Ray 06/20/25 03:08 EXAM: XR chest 1V portable CLINICAL HISTORY: Chest pain, nonspecific TECHNIQUE: An X-ray image of the chest is obtained in AP projection. COMPARISON: prior chest x-ray dated 06/20/2023. FINDINGS: Pulmonary Parenchyma: The previously noted right subclavian PICC line could not be visualized at this time examination. Mild bibasilar atelectasis. No evidence of consolidation, collapse, or focal opacities. No pulmonary nodules are identified. No evidence of pleural effusion or pleural thickening on the right. There is blunting of the left costophrenic angle, likely denoting mild effusion. Heart and Mediastinum: Cardiac silhouette appears mildly enlarged. No mediastinal widening or masses. No hilar or mediastinal lymphadenopathy. Bony Thorax: Bony thorax appears intact without fractures or deformities. Soft Tissues: Soft tissues overlying the chest wall are unremarkable. External cardiac monitoring leads project over the chest. IMPRESSION: 1. The previously noted right subclavian PICC line could not be visualized at this time of examination. 2. Mild bibasilar atelectasis. Stable. 3. Blunting of the left costophrenic angle, likely denoting mild effusion. Interval regression noted. 4. Mild apparent cardiomegaly. Stable. 5. No acute cardiopulmonary abnormalities are identified. Electronically signed by Rob Robert 06-20-2025 04:58 AM ECG Data Attestation: I personally reviewed and interpreted this ECG as follows: Indication: + palpitations Additional Comments: Junctional rhythm at [address] elevation Junctional rhythm has replaced sinus rhythm when compared to EKG 14 March 2024 MDM Narrative Physical exam and history were performed. Nursing notes, EMR, and Medication List were personally reviewed. No social concerns were identified as barriers to patients care. History was provided by the Patient and EMS. Patient appears to have tachycardia bringing her to the ER. EKG was performed with myself at bedside several times, and the patient appears to be in junctional rhythm and tachycardic. IV access was established and labs were obtained. Patient was hydrated with normal saline. An order was placed for continuous cardiac monitoring. The monitor shows a rate of 117 with tachycardic rhythm. Patient's blood work is as above and was reviewed. She does not have a significant elevated white blood cell count, gross anemia, bandemia, or significant electrolyte imbalance. Transaminases not diagnostic. Troponin x 1 negative. Urine without evidence of infection. Other blood work is reassuring. Chest x-ray was independently reviewed by myself and radiology showing no acute process. Patient had episodes where her heart rate would diminish into the 90s, and then return greater than 120. Escalation of care is felt to be necessary. Case was discussed with my attending who remained involved in care and decision making, and did review the EKG with me. The patient case was then discussed with the on-call hospitalist team who agreed to evaluate her in the ER. Please see their dictation for further patient course, plan, and disposition. The chart was completed utilizing [employer] Speech Voice Recognition Software. Grammatical errors, random word insertions, pronoun errors, and incomplete sentences are an occasional consequence of this system due to software limitations, ambient noise, and hardware issues. Any formal questions or concerns about the content, text, or information contained within the body of this dictation should be directly addressed to the provider for clarification. Impression & Plan Tachyarrhythmia Discharge Plan Visit Data Chief Complaint: Tachycardia Stated Complaint: TACHYCARDIA ED Provider: Jessica Montgomery ED Midlevel Provider: Pieter Miranda Discharge Problem: Tachyarrhythmia Patient Disposition: Admitted As Inpatient Condition: Fair Discharge Instructions Interventions: ED Discharge Assessment Last Done: 06/20/25 08:26
--- NOTE | 2025-06-20 08:21 | History & Physical Report ---
Date of Service June 20, 2025 Assessment & Plan (1) Tachyarrhythmia: Plan: 80-year-old female past med significant for type 2 diabetes, diabetic polyneuropathy, hyperlipidemia, bronchiectasis, COPD, allergic rhinitis, obstructive sleep apnea on CPAP, moderate persistent asthma, nocturnal hypoxia, lung nodule, paroxysmal SVT, AV carleen reentry tachycardia, status post ablation for arrhythmia, carotid stenosis status post carotid endarterectomy, hypertensio n, diastolic dysfunction, irritable bowel syndrome, GERD, history of dysphagia, history of colovesical fistula, angiomyolipoma of the right kidney, osteoarthritis, restless leg syndrome, monoclonal gammopathy of unknown origin, depression, comes because of tachycardia. Patient was still having paroxysmal supraventricular events even after ablation and was well-controlled with verapamil 120 mg daily and flecainide 50 mg twice daily. In January 2025 when she cardiology patient complained of side effects with verapamil and flecainide medication of constipation, edema and fatigue and requested to decrease the dose of flecainide. Cardiology decreased the flecainide to 50 mg daily. In first week of May 2025 patient again called cardiology to change the verapamil to diltiazem and was changed recently. Patient states she starting taking diltiazem instead of verapamil a week ago. Yesterday morning she had tachycardia which lasted for about 1 hour. Last night tachycardia came back and was persistent and also had some chest discomfort and feeling of something stuck in the chest which prompted her to come to the ER. Patient wanted to go back on verapamil. She has chronic shortness of breath from her COPD and asthma. She is to use oxygen while ambulation but lately she is not requiring it. She uses 3 lt oxygen with CPAP while sleeping. Has chronic mild cough. Denies any h eadache. Sine Last 1 week she has some pain in the left eye with movements. No runny nose. Appetite is okay. No nausea. No abdominal pain. Normal bowel movements. Has chronic lymphedema of lower legs left greater than right. Tachyarrhythmia EKG today showing accelerated junctional rhythm History of paroxysmal SVT status post ablation On flecainide and diltiazem currently Flecainide dose reduced to 50 mg daily from 50 mg twice daily in January 2025 Recently verapamil has been changed to diltiazem Patient thinks changing medications causing tachycardia and wants to go back to verapamil and stop diltiazem Will start on verapamil 120 mg daily and stop diltiazem Will follow serial cardiac enzymes and echo Monitor on telemetry Consult cardiology Bilateral lower extremity edema History of lymphedema Will follow Dopplers History of COPD History of asthma Continue home inhalers History of sleep apnea CPAP nightly with liters oxygen nightly Diabetes Hold metformin and Mounjaro Sliding scale Will monitor Chronic diastolic CHF On Aldactone Monitor for volume overload Hyperlipidemia On Zetia GERD On Pepcid Hypertension verapamil, losartan, spironolactone, Will monitor MGUS-IgG kappa under observation follows with heme/onco DVT prophylaxis Lovenox Disposition Telemetry Full code. History of Present Illness Chief Complaint: Persistent tachycardia Primary Care Provider: Andrae Hays MD 80-year-old female past med significant for type 2 diabetes, diabetic polyneuropathy, hyperlipidemia, bronchiectasis, COPD, allergic rhinitis, obstructive sleep apnea on CPAP, moderate persistent asthma, nocturnal hypoxia, lung nodule, paroxysmal SVT, AV carleen reentry tachycardia, status post ablation for arrhythmia, carotid stenosis status post carotid endarterectomy, hypertension, diastolic dysfunction, irritable bowel syndrome, GERD, history of dysphagia, history of colovesical fistula, angiomyolipoma of the right kidney, osteoarthritis, restless leg syndrome, monoclonal gammopathy of unknown origin, depression, comes because of tachycardia. Patient was still having paroxysmal supraventricular events even after ablation and was well-controlled with verapamil 120 mg daily and flecainide 50 mg twice daily. In January 2025 when she cardiology patient complained of side effects with verapamil and flecainide medication of constipation, edema and fatigue and requested to decrease the dose of flecainide. Cardiology decreased the flecainide to 50 mg daily. In first week of May 2025 patient again called cardiology to change the verapamil to diltiazem and was changed recently. Patient states she starting taking diltiazem instead of verapamil a week ago. Yesterday morning she had tachycardia which lasted for about 1 hour. Last night tachycardia came back and was persistent and also had some chest discomfort and feeling of something stuck in the chest which prompted her to come to the ER. Patient wanted to go back on verapamil. She has chronic shortness of breath from her COPD and asthma. She is to use oxygen while ambulation but lately she is not requiring it. She uses 3 lt oxygen with CPAP while sleeping. Has chronic mild cough. Denies any headache. Sine Last 1 week she has some pain in the left eye with movements. No runny nose. Appetite is okay. No nausea. No abdominal pain. Normal bowel movements. Has chronic lymphedema of lower legs left greater than right. Past medical history. As mentioned above. Past surgical history.. Ablation of heart dysrhythmia. Left total knee arthroplasty. . Colonoscopy. Cystoscopy. Dental surgery. EGD. EGD with endoscopic ultrasound. Laparoscopic partial colectomy with coloproctostomy November 2023. Laser trabeculoplasty. Nasal endoscopy. Cataract extraction. Cholecystectomy. Tonsillectomy and adenoidectomy. Sinus surgery. Small bowel endoscopy with biopsy. Left carotid endarterectomy. Total abdominal hysterectomy removal of tubes. Social history. Quit smoking 2015. Smoked 1 pack a day for 30 years. No alcohol use. No drug use. Family history. Father had prostate cancer. Mother had pancreatic cancer. Daughter has fibromyalgia. Paternal grandfather had stroke. Allergies Allergy/AdvReac Type Severity Reaction Status Date / Time CAMMIE Inhibitors Allergy Intermediate COUGH Verified 08/27/23 11:50 cefaclor Allergy Intermediate HIVES Verified 08/27/23 11:50 erythromycin base Allergy Intermediate HIVES Verified 08/27/23 11:50 hyoscyamine Allergy Intermediate HALLUCINATI Verified 08/27/23 11:50 ONS ipratropium Allergy Intermediate "lungs get Verified 08/27/23 11:50 itchy" listed in [facility] EMR saccharin Allergy Intermediate WHEEZING Verified 08/27/23 11:50 Sulfa (Sulfonamide Allergy Intermediate HIVES Verified 08/27/23 11:50 Antibiotics) sulfite Allergy Intermediate WHEEZING Verified 08/27/23 11:50 etodolac AdvReac Intermediate STOMACH Verified 08/27/23 11:50 PAIN levofloxacin AdvReac Intermediate BRAIN FOG Verified 08/27/23 11:50 AND SPACEY sorbitol AdvReac Intermediate STOMACH Verified 08/27/23 11:50 PAIN Home Medications Medication Instructions Recorded Confirmed Type albuterol sulfate 90 mcg/actuation 2 inh inhalation Q4H PRN Shortness 06/20/25 06/20/25 History aerosol inhaler Of Breath Or Wheezing aspirin 81 mg tablet,delayed 81 mg PO DAILY 06/20/25 06/20/25 History release diltiazem HCl 120 mg 120 mg PO DAILY 06/20/25 06/20/25 History capsule,extended release 24 hr ezetimibe 10 mg tablet 10 mg PO DAILY 06/20/25 06/20/25 History famotidine 20 mg tablet 20 mg PO DAILY 06/20/25 06/20/25 History flecainide 50 mg tablet 50 mg PO DAILY 06/20/25 06/20/25 History fluticasone furoate 200 1 inh inhalation DAILY 06/20/25 06/20/25 History mcg-vilanterol 25 mcg/dose inhalation powder (Breo Ellipta) losartan 100 mg tablet 100 mg PO DAILY 06/20/25 06/20/25 History metformin 500 mg tablet,extended 500 mg PO DAILY 06/20/25 06/20/25 History release 24 hr spironolactone 25 mg tablet 12.5 mg PO DAILY 06/20/25 06/20/25 History tirzepatide 10 mg/0.5 mL 10 mg subcut WK 06/20/25 06/20/25 History subcutaneous pen injector (Nighat) Past Med/Surg History Problem List Tachyarrhythmia Weakness (Acute) Real time reverse transcriptase PCR positive for 2019 novel coronavirus (Acute) Fistula (Acute) Leukocytosis (Acute) Acute UTI (Acute) Diverticulitis (Acute) Lower abdominal pain (Acute) Diverticulitis of large intestine with complication Chronic diastolic CHF (congestive heart failure) MASSIMO (obstructive sleep apnea) SVT (supraventricular tachycardia) (Acute) pt for EPS with possible ablation. Redicussed the procedure and potential risks with the patient and consents obtained Encounter for pre-operative examination Pulmonary nodules COPD exacerbation Elevated troponin SVT (supraventricular tachycardia) (Acute) DVT prophylaxis Tachyarrhythmia Asthma, moderate persistent (Chronic) rescue inhaler H/O thyroid nodule (Acute) History of hysterectomy (Chronic) History of cataract surgery (Chronic) RT/LEFT Anxiety (Chronic) Depression (Chronic) Diastolic dysfunction (Chronic) Hypertension (Chronic) Hyperlipidemia (Chronic) DM type 2 (diabetes mellitus, type 2) (Chronic) NIDDM Carotid stenosis (Chronic) s/p left carotid endarterectomy 2016, Osteoarthritis (Chronic) IBS (irritable bowel syndrome) (Chronic) Nocturnal hypoxia (Chronic) Obstructive sleep apnea on CPAP (Chronic) CPAP & O2 3L Chronic sinusitis (Chronic) COPD, moderate (Chronic) GERD (gastroesophageal reflux disease) (Chronic) MGUS (monoclonal gammopathy of unknown significance) (Chronic) H/O sinus surgery (Chronic) x2 - 05/09/11 - MAC #3, ETT #7.0 S/P total knee arthroplasty (Chronic) "left" S/P section (Chronic) X 2 S/P cholecystectomy (Chronic) S/P tonsillectomy and adenoidectomy (Chronic) S/P carotid endarterectomy (Chronic) "left, 09/2015" Medical History Acute dehydration Acute hyperglycemia Leukocytosis Acute UTI Bronchiectasis Colonic fistula History of COVID-19 07/26/23, home test, residual cough Asthma nebulizer History of diverticulitis On home oxygen therapy O2 1L with exertion & 3L hs with CPAP Degenerative disc disease SVT (supraventricular tachycardia) hx cardiac ablation, Dr. Liu Surgical History Hx of cardiac catheterization no blockages Hx of total hysterectomy with removal of both tubes and ovaries Hx of bilateral cataract extraction History of anesthesia reaction pulse ox drops with any anesthesia History of arthroscopy of left knee History of cardiac radiofrequency ablation (RFA) x2, last 2019 History of dilatation and curettage History of esophagogastroduodenoscopy (EGD) History of colonoscopy H/O exploratory laparotomy History of tooth extraction Family History Mother Pancreatic cancer Father Prostate cancer Brother Family history of diabetes mellitus Other No family history of adverse response to anesthesia Social History Smoking Status: Former smoker Tobacco Type: Cigarettes Cigarettes Per Day: 1 ppd; Second Hand Exposure: No; Do You Dip or Chew Tobacco: No; Hx Alcohol Use: No Hx Substance Use: No Preferred Language: Slovak Communication Ability: Effective Visual Impairment: No Limitations Hearing Ability: Normal Customer Service Voice Required: No Beliefs That Will Affect Care: None marital status: Current Living Situation: Alone current occupational status: retired Feels Safe at Home: Yes Assistive Devices: Cane, CPAP and Walker Review of Systems Review of Systems: All systems reviewed & are unremarkable except as noted in HPI & below Physical Exam Physical Exam: General- Not in distress Head- atraumatic Eyes- PERRL. ENT- oropharynx clear Neck- supple, no JVD. Lungs- clear to auscultation no wheezing or crackles Heart- regular rhythm;Tachycardia no murmur, no gallop. Abdomen- normal bowel sounds, soft, nontender, no distension Extremities- b/l lower extremity edema present Left >> right. Neuro- alert, oriented PERRL, no facial palsy; no dysarthria; moves extremities Results & Data Results & Data Vital Signs (Past 12 Hours) Vital Signs Temp Pulse Pulse Resp BP BP Pulse Ox 06/20/25 07:30 106 H 16 131/78 95 06/20/25 06:32 127 H 06/20/25 05:02 103 H 16 91/66 L 96 06/20/25 03:28 117 H 22 94 06/20/25 03:28 94 06/20/25 03:21 36.5 C 112 H 24 114/75 93 06/20/25 03:12 131 H O2 Del Method 06/20/25 07:30 Room Air 06/20/25 06:32 06/20/25 05:02 Room Air 06/20/25 03:28 Room Air 06/20/25 03:28 Room Air 06/20/25 03:21 Room Air 06/20/25 03:12 Diagnostic Findings Laboratory Results WBC 9.67 K/ul (4.8-10.8) 06/20/25 03:20 RBC 4.23 M/uL (4.20-5.40) 06/20/25 03:20 Hgb 12.4 g/dL (12.0-16.0) 06/20/25 03:20 Hct 38.3 % (37.0-47.0) 06/20/25 03:20 MCV 90.5 fL (80.0-100.0) 06/20/25 03:20 MCH 29.3 pg (25.0-34.0) 06/20/25 03:20 MCHC 32.4 g/dL (32.0-36.0) 06/20/25 03:20 RDW Std Deviation 42.0 fL (36.4-46.3) 06/20/25 03:20 RDW Coeff of Tasha 12.8 % (11.5-14.5) 06/20/25 03:20 Plt Count 275 K/uL (130-400) 06/20/25 03:20 MPV 9.6 fL (9.4-12.4) 06/20/25 03:20 Immature Gran % (Auto) 0.3 % 06/20/25 03:20 Neut % (Auto) 74.7 % 06/20/25 03:20 Lymph % (Auto) 17.4 % 06/20/25 03:20 Hardeman % (Auto) 5.6 % 06/20/25 03:20 Eos % (Auto) 1.1 % 06/20/25 03:20 Baso % (Auto) 0.9 % 06/20/25 03:20 Neut # (Auto) 7.22 K/uL (1.40-6.50) H 06/20/25 03:20 Lymph # (Auto) 1.68 K/uL (1.20-3.40) 06/20/25 03:20 Hardeman # (Auto) 0.54 K/uL (0.11-0.59) 06/20/25 03:20 Eos # (Auto) 0.11 K/uL (0.00-0.50) 06/20/25 03:20 Baso # (Auto) 0.09 K/uL (0.00-0.20) 06/20/25 03:20 Immature Gran # (Auto) 0.03 K/uL (0.01-0.20) 06/20/25 03:20 Sodium 141 mmol/L (136-145) 06/20/25 03:08 Potassium 3.5 mmol/L (3.5-5.1) 06/20/25 03:08 Chloride 110 mmol/L (98-107) H 06/20/25 03:08 Carbon Dioxide 22 mmol/L (21-32) 06/20/25 03:08 Anion Gap 9 (3-11) 06/20/25 03:08 BUN 32 mg/dl (6-23) H 06/20/25 03:08 Creatinine 0.66 mg/dl (0.6-1.2) 06/20/25 03:08 Est Cr Clr Drug Dosing Not Reportable 06/20/25 03:08 eGFR 88.07 06/20/25 03:08 BUN/Creatinine Ratio 48.5 (10-20) H 06/20/25 03:08 Glucose 154 mg/dl (70-99(Fasting)) H 06/20/25 03:08 Calcium 9.4 mg/dl (8.6-10.3) 06/20/25 03:08 Magnesium 2.0 mg/dl (1.7-2.4) 06/20/25 03:08 Total Bilirubin 0.4 mg/dl (0.2-1.0) 06/20/25 03:08 AST 13 U/L (13-39) 06/20/25 03:08 ALT 15 U/L (7-52) 06/20/25 03:08 Alkaline Phosphatase 83 U/L (34-104) 06/20/25 03:08 Troponin I High Sens 8.1 pg/ml (0-14) 06/20/25 03:08 B-Natriuretic Peptide 250 pg/ml (0-100) H 06/20/25 03:20 Total Protein 6.9 gm/dl (6.0-8.3) 06/20/25 03:08 Albumin 4.0 gm/dl (3.4-5.0) 06/20/25 03:08 Globulin 2.9 gm/dl (2.5-4.0) 06/20/25 03:08 Albumin/Globulin Ratio 1.4 (0.9-2) 06/20/25 03:08 Lipase 14 U/L (11-82) 06/20/25 03:08 Impressions Chest X-Ray 06/20/25 03:08 EXAM: XR chest 1V portable CLINICAL HISTORY: Chest pain, nonspecific TECHNIQUE: An X-ray image of the chest is obtained in AP projection. COMPARISON: prior chest x-ray dated 06/20/2023. FINDINGS: Pulmonary Parenchyma: The previously noted right subclavian PICC line could not be visualized at this time examination. Mild bibasilar atelectasis. No evidence of consolidation, collapse, or focal opacities. No pulmonary nodules are identified. No evidence of pleural effusion or pleural thickening on the right. There is blunting of the left costophrenic angle, likely denoting mild effusion. Heart and Mediastinum: Cardiac silhouette appears mildly enlarged. No mediastinal widening or masses. No hilar or mediastinal lymphadenopathy. Bony Thorax: Bony thorax appears intact without fractures or deformities. Soft Tissues: Soft tissues overlying the chest wall are unremarkable. External cardiac monitoring leads project over the chest. IMPRESSION: 1. The previously noted right subclavian PICC line could not be visualized at this time of examination. 2. Mild bibasilar atelectasis. Stable. 3. Blunting of the left costophrenic angle, likely denoting mild effusion. Interval regression noted. 4. Mild apparent cardiomegaly. Stable. 5. No acute cardiopulmonary abnormalities are identified. Electronically signed by Rob Robert 06-20-2025 04:58 AM ECG Additional Comments: ECG. Accelerated junctional rhythm with retrograde conduction rate of 121. QTc 448. Code Status & VTE Plan VTE Prophylaxis Plan VTE Prophylaxis will be ordered: Yes
[2025-06-20] MEDS ORDERED: ACETAMINOPHEN 325 MG TAB PO PRN (08:26)
[2025-06-20] MEDS ORDERED: LEVALBUTEROL HCL 0.63 MG/3 ML NEB NEB PRN (08:26)
[2025-06-20] MEDS ORDERED: GLUCAGON FOR INJ 1 MG VIAL SQ PRN (08:26)
[2025-06-20] MEDS ORDERED: CARBOHYDRATES FOR HYPOGLYCEMIA PO PRN (08:26)
[2025-06-20] MEDS ORDERED: GLUCOSE 10 TAB/TUBE PO PRN (08:26)
[2025-06-20] MEDS ORDERED: ALBUTEROL HFA 8 GM INHALER INH PRN (08:26)
[2025-06-20] MEDS ORDERED: DEXTROSE 50% 50 ML SYRINGE IV PRN (08:26)
[2025-06-20] MEDS ORDERED: GLUCOSE 40% GEL 15 GM TUBE PO PRN (08:26)
[2025-06-20] MEDS ORDERED: POLYETHYLENE (MIRALAX) 17 GM PACK PO PRN (08:26)
[2025-06-20] MEDS ORDERED: NITROGLYCERIN SL 0.4 MG/TAB TAB SL PRN (08:26)
[2025-06-20] MEDS ORDERED: Patient's HEIGHT &/or WEIGHT Needed SCH (08:45)
[2025-06-20] MEDS: VERAPAMIL HCL 120 MG TABCR PO SCH (09:04)
[2025-06-20] MEDS: INSULIN ASPART PER UNIT CHARGE SC SCH (09:42)
[2025-06-20] MEDS: Patient's HEIGHT &/or WEIGHT Needed STA (09:50)
[2025-06-20] MEDS: ASPIRIN 81 MG ECTAB PO SCH (11:27)
[2025-06-20] MEDS: EZETIMIBE 10 MG TAB PO SCH (11:27)
[2025-06-20] MEDS: SPIRONOLACTONE 12.5 MG TAB PO SCH (11:27)
[2025-06-20] MEDS: FLECAINIDE ACETATE 100 MG TABLET PO SCH (11:28)
[2025-06-20] MEDS: LOSARTAN POTASSIUM 50 MG TAB PO SCH (11:28)
[2025-06-20] MEDS: FLUTICASONE/VILANTEROL 200/25MCG 14 PUFFS/INHALER INH SCH (11:28)
[2025-06-20] MEDS: ENOXAPARIN INJ 40 MG/0.4 ML SYR SQ SCH (11:37)
[2025-06-20] MEDS: FAMOTIDINE 20 MG TAB PO SCH (11:37)
--- NOTE | 2025-06-20 11:38 | Ultrasound Report ---
BILATERAL LOWER EXTREMITY VENOUS DOPPLER HISTORY: Acute pain and swelling of the lower legs b/l lower ext edema. DVT? COMPARISON STUDY: 03/15/2024 FINDINGS: There is normal compressibility, flow, and augmentation within the bilateral lower extremit y deep venous systems. IMPRESSION: No DVT within the right or left lower extremity. ACT 112: Negative or not required by law. Electronically signed by: Keyshawn Roldan M.D. 06/20/2025 11:37 AM
--- NOTE | 2025-06-20 12:02 | Communication Note ---
Date of Service: June 20, 2025
--- NOTE | 2025-06-20 12:23 | XCELERA ---
[id number]
[2025-06-20 14:00] LABS: Appearance Urine Clear (Clear); Bacteria Urine Automated None Seen (None Seen); Cast Urine Automated 0-2 /lpf (0-2); Epithelial Cell Urine Auto 0-2 /hpf (0-2); Glucose Urine UA Negative (Negative); RBC Urine Automated 0-2 /hpf (0-2); WBC Urine Automated 0-5 /hpf (0-5)
--- NOTE | 2025-06-20 14:28 | Electrocardiogram Report ---
Test Reason : Blood Pressure : */* mmHG Vent. Rate : 121 BPM Atrial Rate : * BPM P-R Int : * ms QRS Dur : 56 ms QT Int : 316 ms P-R-T Axes : * 21 37 degrees QTcB Int : 448 ms Supraventricular tachycardia Low voltage QRS Abnormal ECG Confirmed by Junior Ferrari ([id number] on 06/20/2025 2:28:07 PM Referred By: REFERRED SELF Confirmed By: Junior Ferrari
--- NOTE | 2025-06-20 15:00 | Discharge Summary ---
Date of Service June 20, 2025 Admission HPI Per Admitting Provider 80-year-old female past med significant for type 2 diabetes, diabetic polyneuropathy, hyperlipidemia, bronchiectasis, COPD, allergic rhinitis, obstructive sleep apnea on CPAP, moderate persistent asthma, nocturnal hypoxia, lung nodule, paroxysmal SVT, AV carleen reentry tachycardia, status post ablation for arrhythmia, carotid stenosis status post carotid endarterectomy, hypertension, diastolic dysfunction, irritable bowel syndrome, GERD, history of dysphagia, history of colovesical fistula, angiomyolipoma of the right kidney, osteoarthritis, restless leg syndrome, monoclonal gammopathy of unknown origin, depression, comes because of tachycardia. Patient was still having paroxysmal supraventricular events even after ablation and was well-controlled with verapamil 120 mg daily and flecainide 50 mg twice daily. In January 2025 when she cardiology patient complained of side effects with verapamil and flecainide medication of constipation, edema and fatigue and requested to decrease the dose of flecainide. Cardiology decreased the flecainide to 50 mg daily. In first week of May 2025 patient again called cardiology to change the verapamil to diltiazem and was changed recently. Patient states she starting taking diltiazem instead of verapamil a week ago. Yesterday morning she had tachycardia which lasted for about 1 hour. Last night tachycardia came back and was persistent and also had some chest discomfort and feeling of something stuck in the chest which prompted her to come to the ER. Patient wanted to go back on verapamil. She has chronic shortness of breath from her COPD and asthma. She is to use oxygen while ambulation but lately she is not requiring it. She uses 3 lt oxygen with CPAP while sleeping. Has chronic mild cough. Denies any headache. Sine Last 1 week she has some pain in the left eye with movements. No runny nose. Appetite is okay. No nausea. No abdominal pain. Normal bowel movements. Has chronic lymphedema of lower legs left greater than right. Past medical history. As mentioned above. Past surgical history.. Ablation of heart dysrhythmia. Left total knee arthroplasty. . Colonoscopy. Cystoscopy. Dental surgery. EGD. EGD with endoscopic ultrasound. Laparoscopic partial colectomy with coloproctostomy November 2023. Laser trabeculoplasty. Nasal endoscopy. Cataract extraction. Cholecystectomy. Tonsillectomy and adenoidectomy. Sinus surgery. Small bowel endoscopy with biopsy. Left carotid endarterectomy. Total abdominal hysterectomy removal of tubes. Social history. Quit smoking 2016. Smoked 1 pack a day for 30 years. No alcohol use. No drug use. Family history. Father had prostate cancer. Mother had pancreatic cancer. Daughter has fibromyalgia. Paternal grandfather had stroke. Admission Exam Per Admitting Provider General- Not in distress Head- atraumatic Eyes- PERRL. ENT- oropharynx clear Neck- supple, no JVD. Lungs- clear to auscultation no wheezing or crackles Heart- regular rhythm;Tachycardia no murmur, no gallop. Abdomen- normal bowel sounds, soft, nontender, no distension Extremities- b/l lower extremity edema present Left >> right. Neuro- alert, oriented PERRL, no facial palsy; no dysarthria; moves extremities Principal Diagnosis Supraventricular tachycardia Elevated troponin Discharge Exam Constitutional + well hydrated; no acute distress Eyes PERRL, conjunctivae normal, anicteric sclerae ENMT external ear and nose normal, oropharynx normal Respiratory normal respiratory effort, lungs clear to auscultation Cardiovascular Rate/Rhythm: regular rate and regular rhythm Gastrointestinal (Abdomen) normal bowel sounds, soft, nontender, no hepatosplenomegaly Musculoskeletal +pedal edema Neurologic PERRL, EOMI, accommodation nl, no face palsy, no dysarthria Psychiatric A+Ox3, euthymic affect Discharge Data Allergies Allergy/AdvReac Type Severity Reaction Status Date / Time CAMMIE Inhibitors Allergy Intermediate COUGH Verified 08/27/23 11:50 cefaclor Allergy Intermediate HIVES Verified 08/27/23 11:50 erythromycin base Allergy Intermediate HIVES Verified 08/27/23 11:50 hyoscyamine Allergy Intermediate HALLUCINATI Verified 08/27/23 11:50 ONS ipratropium Allergy Intermediate "lungs get Verified 08/27/23 11:50 itchy" listed in S EMR saccharin Allergy Intermediate WHEEZING Verified 08/27/23 11:50 Sulfa (Sulfonamide Allergy Intermediate HIVES Verified 08/27/23 11:50 Antibiotics) sulfite Allergy Intermediate WHEEZING Verified 08/27/23 11:50 etodolac AdvReac Intermediate STOMACH Verified 08/27/23 11:50 PAIN levofloxacin AdvReac Intermediate BRAIN FOG Verified 08/27/23 11:50 AND SPACEY sorbitol AdvReac Intermediate STOMACH Verified 08/27/23 11:50 PAIN Consultations 06/20/25 05:40 ED Decision to Admit Stat 06/20/25 07:05 Consult Cardiology Routine Ordered Studies 06/20/25 08:35 US venous doppler LE Routine Hospital Course (1) Tachyarrhythmia: 80-year-old female past med significant for type 2 diabetes, diabetic polyneuropathy, hyperlipidemia, bronchiectasis, COPD, allergic rhinitis, obstructive sleep apnea on CPAP, moderate persistent asthma, nocturnal hypoxia, lung nodule, paroxysmal SVT, AV carleen reentry tachycardia, status post ablation for arrhythmia, carotid stenosis status post carotid endarterectomy, hypertension, diastolic dysfunction, irritable bowel syndrome, GERD, history of dysphagia, history of colovesical fistula, angiomyolipoma of the right kidney, osteoarthritis, restless leg syndrome, monoclonal gammopathy of unknown origin, depression, comes because of tachycardia. Patient was still having paroxysmal supraventricular events even after ablation and was well-controlled with verapamil 120 mg daily and flecainide 50 mg twice daily. In January 2025, patient complained of side effects with verapamil and flecainide (constipation, edema and fatigue) and requested to decrease the dose of flecainide. She reported flecainide was reduced to 50 mg daily. In first week of May 2025 patient requested cardiology to change the verapamil to diltiazem which was done. Patient states she starting taking diltiazem instead of verapamil a week ago. Yesterday morning she had tachycardia which lasted for about 1 hour. Last night tachycardia came back and was persistent and also had some chest discomfort and feeling of something stuck in the chest which prompted her to come to the ER. Patient wanted to go back on verapamil. She has chronic shortness of breath from her COPD and asthma. Has chronic lymphedema of lower legs left greater than right. Paroxysmal supraventricular tachyarrhythmia EKG today showing accelerated junctional rhythm History of paroxysmal SVT status post ablation Troponin was mildly elevated,likely due to tachycardia TTE noted EF 60-65%, Grade I DD, mild , mild MR Patient was started back on Verapamil ER 120mg daily and Flecainide increased to 50mg BID Cardiology evaluated; recommended patient can be discharged home and to stop diltiazem, resume verapamil ER 120mg daily and increase Flecainide back to 50mg BID Reviewed recommendations with Patient. She reported she has enough Flecainide at home and only needs prescription for the Verapamil sent Total Time Total Time Spent Total Time Spent (In Minutes): 40 Total Time Includes: Examination of the Patient, Discharge Planning, Medication Reconciliation and Communication With Other Providers Discharge Plan Discharge Items Patient Disposition: Home - Self-Care Reason For Visit: TACHYCARDIA Discharge Diagnosis: Paroxysmal supraventricular tachycardia Activity: Resume your previous activity Non-emergency contact: Primary Care Provider and [facility] Call non-emergency contact if: you have any medication questions Follow-up/Referrals: Andrae Hays MD [Primary Care Provider] - Diet: Carb Consistent or DM2 and Heart Healthy Addtl Attending Provider Instructions: Mrs Cano You were evaluated and managed for the above listed diagnoses. You were evaluated by Cardiology who recommends the following medication changes: - Stop diltiazem - Resume your previous verapamil 120mg daily - Increase flecainide to 50mg twice a day Please ensure follow up with [facility] and Family Doctor It was a pleasure taking care of you Pending Studies at Discharge: No Stand-Alone Forms: My [facility] Going, Smoking Cessation Medications and DC Order Prescriptions: New verapamil 120 mg Tablet Extended Release 120 mg PO QAM 30 Days Qty: 30 0RF Continued spironolactone 25 mg tablet 12.5 mg PO DAILY famotidine 20 mg tablet 20 mg PO DAILY albuterol sulfate 90 mcg/actuation HFA aerosol inhaler 2 inh INHALATION Q4H PRN (Reason: Shortness Of Breath Or Wheezing) losartan 100 mg tablet 100 mg PO DAILY metformin 500 mg tablet extended release 24 hr 500 mg PO DAILY ezetimibe 10 mg tablet 10 mg PO DAILY fluticasone furoate-vilanterol [Breo Ellipta] 200-25 mcg/dose blister with device 1 inh INHALATION DAILY Mounjaro 10 mg/0.5 mL pen injector 10 mg SUBCUT WK aspirin 81 mg Tablet,Delayed Release (Dr/Ec) 81 mg PO DAILY Changed flecainide 50 mg tablet 50 mg PO BID Qty: 60 0RF Discontinued diltiazem HCl 120 mg capsule,extended release 24hr 120 mg PO DAILY Discharge Orders: Discharge Order (Routine); Ordered 06/20/25 Ordered By: Oumou Morrissey Admission Data Admit Date/Time: 06/20/25 06:56 Attending Provider: Oumou Morrissey I. Admit Provider: Mir Guaman Primary Care Provider: Andrae Hays Other Providers: Maya Chavira; Pieter Olmstead; Macario Liu; Lopez Ovalle; Crow Bowen; Sidney Parrish; Melani Neri; Kamilla Poole; Cuca Allen; Zuleika Beverly; Maya Youngblood; Go Padilla; Alfredo Ayon; Yanni Ahuja; Wanda Templeton; Nila Macdonald; Nichole Malave; Zion Nixon; Dana Liu; Kendra Pino; Junior Hathaway; Raul Nuñez; Laura Mckeon; Mir Guaman Other Interventions: Discharge Summary Assessment (RN) Last Done: 06/20/25 15:21
--- NOTE | 2025-06-20 15:01 | Cardiology Consultation ---
Date of Consultation June 20, 2025 Assessment & Plan (1) SVT (supraventricular tachycardia): (2) Elevated troponin: (3) Hypertension: Plan Patient is a complex 80 year old female with history of SVT s/p 2 prior ablations without complete success. She has been managed on CCB and flecainide for many years. She believed she was having side effects of the verapamil (constipation) and wished to retry diltiazem, making this change about 2 weeks ago. Within 5 days of being on the diltiazem, she began to have recurrent tachyarrhythmias. The one yesterday persisted most of the day and overnight, prompting the ER visit. She was in sustained SVT in the 120's on arrival. She was resumed on oral verapamil 120 mg daily and her flecainide 50 mg. She was previously on flecainide 50 mg BID, having reduced this as well several months ago. At tiime of consult, patient had converted back to NSR around 7:45 this morning. Long discussion with the patient about remaining on her verapamil at this time at 120 mg daily, having now failed diltiazem. The verapamil worked well for the last year or so. She is agreeable. She is also agreeable to increasing her flecainide back to 50 mg BID for now. Repeat EKG today. Ordered HS troponin mildly elevated at 81 today. No chest pain reported. She has a history of normal cardiac cath several years ago. Mildly elevated troponin likely in setting of persistent tachycardia over stacey last 12-24 hours. Echo with normal LVEF, no wall motion abnormalities. Mild . Will monitor. At this time, patient is maintaining NSR and tolerating medications. No further cardiac testing warranted. Will arrange f/u with Dr. Camp (EP) as an outpatient. Continue all other home/cardiac medications. Case discussed with Dr. Nuñez I spent a total of 60 minutes on the date of service in preparation, delivery, and documentation of the care provided to this patient, excluding any time spent in the performance of separately billed services. Kamilla Poole PA-C Department of Cardiology, [facility] This chart was completed in part utilizing Speech Voice Recognition Software. Grammatical errors, random word insertions, pronoun errors, and incomplete sentences are an occasional consequence of this system due to software limita tions, ambient noise, and hardware issues. Any formal questions or concerns about the content, text, or information contained within the body of this dictation should be directly addressed to the provider for clarification. Supervising Physician Co-Signing Physician Notes Patient seen and examined. Past medical history, surgical history, social history and family history have been reviewed. The medical record and all the above studies have been reviewed. Case DW TAWANA including management. PSVT - AVNRT HTN ABN Troponin - likely due to demand ischemia and not indicative of Type I CO MASSIMO on CPAP HLD DM recommendations: correct and f/u electrolytes f/u renal function change diltiazem to verapamil Increase Flecainide to 50mg po bid ECHO - as above f/u with EP as OP History of Present Illness Reason for Consultation: PSVT/AVNRT - recurrent Requesting Physician: Ronnie Hospitalist Attending Physician: Dr. Nuñez History of Present Illness Patient is a complex 80-year-old female admitted to [facility] with recurrent tachyarrhythmias suggestive of her prior PSVT/AVNRT. Most recently patent called 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 Verapamil 120 mg was discontinued and diltiazem initiated at 120 mg daily. Patient reports she took diltiazem for about 5 days and then had sudden onset palpations/tachycardia at home over the last 2 days. Persistent heart rates in the 120's with associated SOB. She came to the ER for evaluation. Found to have AVNRT in the 120-130's. Resumed her verapamil and converted to NSR around 7:45 this morning. Flecainide was previously 50 mg BID and this was reduced per patient preference about 2 months ago to 50 mg daily At time of consult, patient resting in bed, feeling better now that her HR was improved. No chest pain or SOB. No current palpitations. No dizziness. Mildly elevated troponin at 81 due to persistent tachycardia over the last day. Echo demonstrating normal LVEF, no wall motion abnormalities, mild . Cardiac Problems: 1. Paroxysmal SVT/AV carleen re-entry tachycardia A. Status post incomplete SVT ablation (01/13/2019) with Dr. Allen; Status post incomplete ablation (03/2020) with Dr. Camp 2. Chronic HFpEF, NYHA Class II 3. Hypertension 4. Hyperlipidemia a. Statin intolerance 5. Abnormal stress test a. CATH (11/28/2020) with normal coronary arteries 6. MASSIMO (on CPAP) 7. Carotid artery disease status post carotid endarterectomy 8. COPD Allergies Allergy/AdvReac Type Severity Reaction Status Date / Time CAMMIE Inhibitors Allergy Intermediate COUGH Verified 08/27/23 11:50 cefaclor Allergy Intermediate HIVES Verified 08/27/23 11:50 erythromycin base Allergy Intermediate HIVES Verified 08/27/23 11:50 hyoscyamine Allergy Intermediate HALLUCINATI Verified 08/27/23 11:50 ONS ipratropium Allergy Intermediate "lungs get Verified 08/27/23 11:50 itchy" listed in [facility] EMR saccharin Allergy Intermediate WHEEZING Verified 08/27/23 11:50 Sulfa (Sulfonamide Allergy Intermediate HIVES Verified 08/27/23 11:50 Antibiotics) sulfite Allergy Intermediate WHEEZING Verified 08/27/23 11:50 etodolac AdvReac Intermediate STOMACH Verified 08/27/23 11:50 PAIN levofloxacin AdvReac Intermediate BRAIN FOG Verified 08/27/23 11:50 AND SPACEY sorbitol AdvReac Intermediate STOMACH Verified 08/27/23 11:50 PAIN Home Medications Medication Instructions Recorded Confirmed Type albuterol sulfate 90 mcg/actuation 2 inh inhalation Q4H PRN Shortness 06/20/25 06/20/25 History aerosol inhaler Of Breath Or Wheezing aspirin 81 mg tablet,delayed 81 mg PO DAILY 06/20/25 06/20/25 History release ezetimibe 10 mg tablet 10 mg PO DAILY 06/20/25 06/20/25 History famotidine 20 mg tablet 20 mg PO DAILY 06/20/25 06/20/25 History flecainide 50 mg tablet 50 mg PO BID #60 tabs 06/20/25 Rx fluticasone furoate 200 1 inh inhalation DAILY 06/20/25 06/20/25 History mcg-vilanterol 25 mcg/dose inhalation powder (Breo Ellipta) losartan 100 mg tablet 100 mg PO DAILY 06/20/25 06/20/25 History metformin 500 mg tablet,extended 500 mg PO DAILY 06/20/25 06/20/25 History release 24 hr spironolactone 25 mg tablet 12.5 mg PO DAILY 06/20/25 06/20/25 History tirzepatide 10 mg/0.5 mL 10 mg subcut WK 06/20/25 06/20/25 History subcutaneous pen injector (Nighat) verapamil 120 mg tablet,extended 120 mg PO QAM 30 days #30 tabs 06/20/25 Rx release Patient History Medical History Acute dehydration Acute hyperglycemia Leukocytosis Acute UTI Bronchiectasis Colonic fistula History of COVID-19 07/26/23, home test, residual cough Asthma nebulizer History of diverticulitis On home oxygen therapy O2 1L with exertion & 3L hs with CPAP Degenerative disc disease SVT (supraventricular tachycardia) hx cardiac ablation, Dr. Liu Surgical History Hx of cardiac catheterization no blockages Hx of total hysterectomy with removal of both tubes and ovaries Hx of bilateral cataract extraction History of anesthesia reaction pulse ox drops with any anesthesia History of arthroscopy of left knee History of cardiac radiofrequency ablation (RFA) x2, last 2019 History of dilatation and curettage History of esophagogastroduodenoscopy (EGD) History of colonoscopy H/O exploratory laparotomy History of tooth extraction Family History Mother Pancreatic cancer Father Prostate cancer Brother Family history of diabetes mellitus Other No family history of adverse response to anesthesia Social History Smoking Status: Former smoker Tobacco Type: Cigarettes Cigarettes Per Day: 1 ppd; Second Hand Exposure: No; Do You Dip or Chew Tobacco: No; Hx Alcohol Use: No Hx Substance Use: No Preferred Language: Kosovan Communication Ability: Effective Visual Impairment: No Limitations Hearing Ability: Normal Whitewasher Required: No Beliefs That Will Affect Care: None marital status: Current Living Situation: Alone current occupational status: retired Feels Safe at Home: Yes Assistive Devices: Cane, CPAP and Walker Review of Systems Review of Systems: All systems reviewed & are unremarkable except as noted in HPI & below Physical Exam Constitutional: WD/WN, vitals as above no acute distress Neck: normal visual inspection Respiratory: normal respiratory effort, lungs clear to auscultation Cardiovascular: Rate/Rhythm: regular rate and regular rhythm Heart Sounds: + murmur (II/ systolic murmur) Vessels: no JVD Extremities: + edema (1+ LE edema) Gastrointestinal (Abdomen): normal bowel sounds, soft, nontender, no hepatosplenomegaly Neurologic: PERRL, EOMI, accommodation nl, no face palsy, no dysarthria Psychiatric: A+Ox3, euthymic affect Results & Data Vital Signs (Past 12 Hours) Vital Signs Temp Pulse Pulse Resp BP BP Pulse Ox 06/20/25 13:38 81 16 165/85 H 06/20/25 12:00 79 20 114/66 99 06/20/25 07:30 106 H 16 131/78 95 06/20/25 06:32 127 H 06/20/25 05:02 103 H 16 91/66 L 96 06/20/25 03:28 117 H 22 94 06/20/25 03:28 94 06/20/25 03:21 36.5 C 112 H 24 114/75 93 06/20/25 03:12 131 H O2 Del Method 06/20/25 13:38 Room Air 06/20/25 12:00 Room Air 06/20/25 07:30 Room Air 06/20/25 06:32 06/20/25 05:02 Room Air 06/20/25 03:28 Room Air 06/20/25 03:28 Room Air 06/20/25 03:21 Room Air 06/20/25 03:12 Laboratory Results Cardiac Enzymes 06/20/25 06/20/25 06/20/25 Range/Units 03:08 03:20 10:33 AST 13 (13-39) U/L Troponin I High Sens 8.1 81.1 H* D (0-14) pg/ml B-Natriuretic Peptide 250 H (0-100) pg/ml Coagulation 06/20/25 Range/Units 03:20 B-Natriuretic Peptide 250 H (0-100) pg/ml CBC 06/20/25 Range/Units 03:20 WBC 9.67 (4.8-10.8) K/ul RBC 4.23 (4.20-5.40) M/uL Hgb 12.4 (12.0-16.0) g/dL Hct 38.3 (37.0-47.0) % Plt Count 275 (130-400) K/uL Neut # (Auto) 7.22 H (1.40-6.50) K/uL Lymph # (Auto) 1.68 (1.20-3.40) K/uL [place] # (Auto) 0.54 (0.11-0.59) K/uL Eos # (Auto) 0.11 (0.00-0.50) K/uL Baso # (Auto) 0.09 (0.00-0.20) K/uL Comprehensive Metabolic Panel 06/20/25 Range/Units 03:08 Sodium 141 (136-145) mmol/L Potassium 3.5 (3.5-5.1) mmol/L Chloride 110 H (98-107) mmol/L Carbon Dioxide 22 (21-32) mmol/L BUN 32 H (6-23) mg/dl Creatinine 0.66 (0.6-1.2) mg/dl Glucose 154 H (70-99(Fasting)) mg/dl Calcium 9.4 (8.6-10.3) mg/dl AST 13 (13-39) U/L ALT 15 (7-52) U/L Alkaline Phosphatase 83 (34-104) U/L Total Protein 6.9 (6.0-8.3) gm/dl Albumin 4.0 (3.4-5.0) gm/dl Intake and Output 06/20/25 06/20/25 06/20/25 06:59 14:59 22:59 Intake Total 1000 / 1000 Balance 1000 / 1000 Intake: IV 1000 / 1000 Sodium Chloride 0.9% 1,000 ml @ 1000 / 1000 999 mls/hr IV .Q1H1M ONE Rx#: [id number] Other: Weight 89 kg Patient Weight 06/21/25 06:59 Weight 89 kg Diagnostic Findings Telemetry reviewed: Currently NSR with long first degree AV block. Earlier this morning patient was in SVT around 120-130 bmp. EKG reviewed on admission (also reviewed with her EP) SVT at 120 bmp low voltage QRS Echo report reviewed from this morning: Normal LVEF at 60-65% Grade I diastolic dysfunction Mild Mild MR Laboratory Results WBC 9.67 K/ul (4.8-10.8) 06/20/25 03:20 RBC 4.23 M/uL (4.20-5.40) 06/20/25 03:20 Hgb 12.4 g/dL (12.0-16.0) 06/20/25 03:20 Hct 38.3 % (37.0-47.0) 06/20/25 03:20 MCV 90.5 fL (80.0-100.0) 06/20/25 03:20 MCH 29.3 pg (25.0-34.0) 06/20/25 03:20 MCHC 32.4 g/dL (32.0-36.0) 06/20/25 03:20 RDW Std Deviation 42.0 fL (36.4-46.3) 06/20/25 03:20 RDW Coeff of Tasha 12.8 % (11.5-14.5) 06/20/25 03:20 Plt Count 275 K/uL (130-400) 06/20/25 03:20 MPV 9.6 fL (9.4-12.4) 06/20/25 03:20 Immature Gran % (Auto) 0.3 % 06/20/25 03:20 Neut % (Auto) 74.7 % 06/20/25 03:20 Lymph % (Auto) 17.4 % 06/20/25 03:20 [place] % (Auto) 5.6 % 06/20/25 03:20 Eos % (Auto) 1.1 % 06/20/25 03:20 Baso % (Auto) 0.9 % 06/20/25 03:20 Neut # (Auto) 7.22 K/uL (1.40-6.50) H 06/20/25 03:20 Lymph # (Auto) 1.68 K/uL (1.20-3.40) 06/20/25 03:20 [place] # (Auto) 0.54 K/uL (0.11-0.59) 06/20/25 03:20 Eos # (Auto) 0.11 K/uL (0.00-0.50) 06/20/25 03:20 Baso # (Auto) 0.09 K/uL (0.00-0.20) 06/20/25 03:20 Immature Gran # (Auto) 0.03 K/uL (0.01-0.20) 06/20/25 03:20 Sodium 141 mmol/L (136-145) 06/20/25 03:08 Potassium 3.5 mmol/L (3.5-5.1) 06/20/25 03:08 Chloride 110 mmol/L (98-107) H 06/20/25 03:08 Carbon Dioxide 22 mmol/L (21-32) 06/20/25 03:08 Anion Gap 9 (3-11) 06/20/25 03:08 BUN 32 mg/dl (6-23) H 06/20/25 03:08 Creatinine 0.66 mg/dl (0.6-1.2) 06/20/25 03:08 Est Cr Clr Drug Dosing Not Reportable 06/20/25 03:08 eGFR 88.07 06/20/25 03:08 BUN/Creatinine Ratio 48.5 (10-20) H 06/20/25 03:08 Glucose 154 mg/dl (70-99(Fasting)) H 06/20/25 03:08 POC Glucose 90 mg/dl (70-99) 06/20/25 13:32 Calcium 9.4 mg/dl (8.6-10.3) 06/20/25 03:08 Magnesium 2.0 mg/dl (1.7-2.4) 06/20/25 03:08 Total Bilirubin 0.4 mg/dl (0.2-1.0) 06/20/25 03:08 AST 13 U/L (13-39) 06/20/25 03:08 ALT 15 U/L (7-52) 06/20/25 03:08 Alkaline Phosphatase 83 U/L (34-104) 06/20/25 03:08 Troponin I High Sens 81.1 pg/ml (0-14) H* D 06/20/25 10:33 B-Natriuretic Peptide 250 pg/ml (0-100) H 06/20/25 03:20 Total Protein 6.9 gm/dl (6.0-8.3) 06/20/25 03:08 Albumin 4.0 gm/dl (3.4-5.0) 06/20/25 03:08 Globulin 2.9 gm/dl (2.5-4.0) 06/20/25 03:08 Albumin/Globulin Ratio 1.4 (0.9-2) 06/20/25 03:08 Lipase 14 U/L (11-82) 06/20/25 03:08 Urine Color Yellow 06/20/25 10:47 Urine Appearance Clear (Clear) 06/20/25 10:47 Urine pH 5.0 (4.5-7.5) 06/20/25 10:47 Ur Specific [place] 1.015 (1.000-1.030) 06/20/25 10:47 Urine Protein Negative (Negative) 06/20/25 10:47 Urine Glucose (UA) Negative (Negative) 06/20/25 10:47 Urine Ketones Negative (Negative) 06/20/25 10:47 Urine Blood Negative (Negative) 06/20/25 10:47 Urine Nitrite Negative (Negative) 06/20/25 10:47 Urine Bilirubin Negative (Negative) 06/20/25 10:47 Urine Urobilinogen Negative (Negative) 06/20/25 10:47 Ur Leukocyte Esterase Trace (Negative) H 06/20/25 10:47 Urine WBC (Auto) 0-5 /hpf (0-5) 06/20/25 10:47 Urine RBC (Auto) 0-2 /hpf (0-2) 06/20/25 10:47 U Hyaline Cast (Auto) 0-2 /lpf (0-2) 06/20/25 10:47 U Epithel Cells (Auto) 0-2 /hpf (0-2) 06/20/25 10:47 Urine Bacteria (Auto) None Seen (None Seen) 06/20/25 10:47 Urine Comment 06/20/25 10:47 Impressions Chest X-Ray 06/20/25 03:08 EXAM: XR chest 1V portable CLINICAL HISTORY: Chest pain, nonspecific TECHNIQUE: An X-ray image of the chest is obtained in AP projection. COMPARISON: prior chest x-ray dated 06/20/2023. FINDINGS: Pulmonary Parenchyma: The previously noted right subclavian PICC line could not be visualized at this time examination. Mild bibasilar atelectasis. No evidence of consolidation, collapse, or focal opacities. No pulmonary nodules are identified. No evidence of pleural effusion or pleural thickening on the right. There is blunting of the left costophrenic angle, likely denoting mild effusion. Heart and Mediastinum: Cardiac silhouette appears mildly enlarged. No mediastinal widening or masses. No hilar or mediastinal lymphadenopathy. Bony Thorax: Bony thorax appears intact without fractures or deformities. Soft Tissues: Soft tissues overlying the chest wall are unremarkable. External cardiac monitoring leads project over the chest. IMPRESSION: 1. The previously noted right subclavian PICC line could not be visualized at this time of examination. 2. Mild bibasilar atelectasis. Stable. 3. Blunting of the left costophrenic angle, likely denoting mild effusion. Interval regression noted. 4. Mild apparent cardiomegaly. Stable. 5. No acute cardiopulmonary abnormalities are identified. Electronically signed by Rob Robert 06-20-2025 04:58 AM Venous Doppler Study 06/20/25 08:35 BILATERAL LOWER EXTREMITY VENOUS DOPPLER HISTORY: Acute pain and swelling of the lower legs b/l lower ext edema. DVT? COMPARISON STUDY: 03/15/2024 FINDINGS: There is normal compressibility, flow, and augmentation within the bilateral lower extremity deep venous systems. IMPRESSION: No DVT within the right or left lower extremity. ACT 112: Negative or not required by law. Electronically signed by: Keyshawn Roldan M.D. 06/20/2025 11:37 AM Medications Administered Current Inpatient Medications Acetaminophen (Acetaminophen 325 Mg Tab) 650 mg PO Q4H PRN PRN Reason: Pain or Fever Stop: 07/20/25 08:25 Albuterol (Albuterol Hfa 8 Gm Inhaler) 2 puffs INH Q4H PRN PRN Reason: Shortness Of Breath Or Wheezing Stop: 07/20/25 08:25 Aspirin (Aspirin 81 Mg Ectab) 81 mg PO DAILY GHASSAN Stop: 07/20/25 08:59 Last Admin: 06/20/25 11:27 Dose: 81 mg Dextrose (Dextrose 50% 50 Ml Syringe) 25 - 50 ml IV UD PRN; Protocol PRN Reason: Hypoglycemia Protocol Stop: 07/20/25 08:25 Ezetimibe (Ezetimibe 10 Mg Tab) 10 mg PO DAILY GHASSAN Stop: 07/20/25 08:59 Last Admin: 06/20/25 11:27 Dose: 10 mg Enoxaparin Sodium (Enoxaparin Inj 40 Mg/0.4 Ml Syr) 40 mg SQ DAILY GHASSAN Stop: 07/20/25 09:59 Last Admin: 06/20/25 11:37 Dose: 40 mg Famotidine (Famotidine 20 Mg Tab) 20 mg PO DAILY GHASSAN Stop: 07/20/25 08:59 Last Admin: 06/20/25 11:37 Dose: 20 mg Flecainide Acetate (Flecainide Acetate 100 Mg Tablet) 50 mg PO BID [facility] Stop: 07/20/25 20:59 Fluticasone/Vilanterol (Fluticasone/Vilanterol 200/25mcg 14 Puffs/Inhaler) 1 puffs INH DAILY GHASSAN Stop: 07/20/25 08:59 Last Admin: 06/20/25 11:28 Dose: 1 puffs Glucagon (Glucagon For Inj 1 Mg Vial) 1 mg SQ UD PRN; Protocol PRN Reason: Hypoglycemia Protocol Stop: 07/20/25 08:25 Glucose (Glucose 40% Gel 15 Gm Tube) 15 - 30 gm PO UD PRN; Protocol PRN Reason: Hypoglycemia Protocol Stop: 07/20/25 08:25 Glucose (Glucose 10 Tab/Tube) 4 - 8 tab PO UD PRN; Protocol PRN Reason: Hypoglycemia Protocol Stop: 07/20/25 08:25 Insulin Aspart (Insulin Aspart Per Unit Charge) 0 units SC Q6H GHASSAN Stop: 07/20/25 08:25 Last Admin: 06/20/25 09:42 Dose: Not Given Levalbuterol HCl (Levalbuterol Hcl 0.63 Mg/3 Ml Neb) 0.63 mg NEB Q4H PRN; Protocol PRN Reason: Shortness Of Breath Or Wheezing Stop: 07/20/25 08:25 Losartan Potassium (Losartan Potassium 50 Mg Tab) 100 mg PO DAILY [facility] Stop: 07/20/25 08:59 Last Admin: 06/20/25 11:28 Dose: 100 mg Miscellaneous (Carbohydrates For Hypoglycemia ) 15 - 30 gm PO UD PRN PRN Reason: Hypoglycemia Protocol Stop: 07/20/25 08:25 Nitroglycerin (Nitroglycerin Sl 0.4 Mg/Tab Tab) 0.4 mg SL Q5M PRN PRN Reason: Chest Pain Stop: 07/20/25 08:25 Polyethylene Glycol (Polyethylene (Miralax) 17 Gm Pack) 17 gm PO DAILY PRN PRN Reason: Constipation Stop: 07/20/25 08:25 Spironolactone (Spironolactone 12.5 Mg Tab) 12.5 mg PO DAILY [facility] Stop: 07/20/25 08:59 Last Admin: 06/20/25 11:27 Dose: 12.5 mg Verapamil HCl (Verapamil Hcl 120 Mg Tabcr) 120 mg PO QAM [facility] Stop: 07/20/25 07:04 Last Admin: 06/20/25 09:04 Dose: 120 mg PG Care Time/CCT Total # of Minutes Spent Total Time Spent with Patient: Total time spent is greater than 50% in coordination of care (as documented) at patient's floor/unit and/or counseling patient: 60 minutes Coding Level of Care Code 59942 INT INP/OBS CARE 3/75MIN Diagnoses SVT (supraventricular tachycardia) I47.1 Elevated troponin R74.8 Hypertension I10 Hypertension type: essential hypertension (3) Hypertension Hypertension type: essential hypertension Qualified Code(s): I10 - Essential (primary) hypertension
[2025-06-20 15:23] VITALS: BP 148/72; PULSE 78; RESP 18; O2SAT 95
[2025-06-20] MEDS ORDERED: FLECAINIDE ACETATE 100 MG TABLET PO SCH (21:00)
--- NOTE | 2025-06-21 12:00 | Communication Note ---
Date of Service: June 21, 2025 Code 44 Attestation: By CMS guidelines, a determination that the admission or continued stay is not medically necessary has been made by a member of the UR committee and a physician for this hospital stay, therefore a Code 44 will be completed and the Inpatient admission will be changed to outpatient. Dr Yolande Cosme Member UR Committee
== END 2025-06-20 15:25 | disposition home or self-care (01) | DRG 309 ==
LOC: ED 03:05 → EDINP 06:56